=== PATIENT | female | born 1970 | race Caucasian/White ===

== ENCOUNTER → 2018-09-07 14:09 | Outpatient (CLI) | payer BC, SELFPAY ==
[2018-09-07 18:12] LABS: Chlamydia Trachomatis by PCR Negative (Negative); Neisserai gonorrhoeae by PCR Negative (Negative); Probe Check PASS; Sample Adequacy Control PASS; Specimen Processing Control PASS
[2018-09-14 16:08] LABS: HPV HC, High Risk Positive (Negative)
== END ==
PROVIDERS: Family Provider Family Medicine; PCP Family Medicine; Referring Provider Family Medicine; Visit Provider Family Medicine
DX: Z12.4 Encounter for screening for malignant neoplasm of cervix (principal)
CPT/HCPCS: 87491; 87591; 87624; 88175; G0145

== ENCOUNTER → 2018-09-11 08:04 | Outpatient (CLI) | payer MEDICAID, SELFPAY ==
[2018-09-11 12:03] LABS: Absolute Lymphocyte Count 2.07 X10^3/ul (0.83-4.51); Basophil# 0.02 X10^3/uL; Basophil% 0.3 % (0-1); Eosinophil# 0.16 X10^3/uL; Eosinophils% 2.3 % (0-5); Hematocrit 40.8 % (37-47); Hemoglobin 13.2 g/dl (12.0-15.0); Lymphocyte # 2.07 X10^3/ul (4.0); Lymphocyte % 29.7 % (19-41); Mean Corp Hgb Conc 32.4 g/gl (32-36); Mean Corpuscular Hgb 30.5 pg (27.0-32.0); Mean Corpuscular Volume 94.2 fL (81-99); Mean Platelet Vol. 9.8 fl (6.2-12.0); Neutrophil # 4.02 X10^3/uL (2.7-7.7); Neutrophil % 57.6 % (47-70); Platelet Count 208 K/mm3 (150-450); RBC Distribution Width CV 13.4 % (11.6-14.6); RBC Distribution Width SD 46.5 fl (35.1-43.9); Red Blood Count 4.33 M/mm3 (4.2-5.4)
[2018-09-11 12:04] LABS: POSITIVE COUNT NO; POSITIVE DIFFERENTIAL NO; POSITIVE MORPHOLOGY NO
[2018-09-11 12:47] LABS: ALB/GLOB Ratio 1.2 RATIO (0.9-2.4); AST(SGOT) 11 U/L (15-37); Alanine Aminotransfer ALT/SGPT 28 U/L (13-56); Albumin, Serum 3.8 g/dL (3.2-5.0); Alkaline Phosphatase 75 U/L (45-117); Anion Gap 9 (5-15); BUN 10 mg/dL (7-18); Calcium,Total 8.4 mg/dL (8.5-10.1); Chloride 104 mmol/L (98-107); Cholesterol 232 mg/dL (200); Creatinine, Serum 0.83 mg/dL (0.55-1.02); EST Glomerular Filtration Rate 77 mL/min (>60); Est Glom Filt Rate - Afr Amer 94 mL/min (>60); Globulin 3.1 g/dL (2.2-4.2); Glucose 92 mg/dL (74-106); High Density Lipoprotein 38 mg/dL; Potassium 4.1 mmol/L (3.5-5.1); Protein, Total 6.9 g/dL (6.4-8.2); Sodium Level 137 mmol/L (136-145); Thyroid Stim Hormone (TSH) 3.18 uIU/mL (0.358-3.74); Triglycerides 127 mg/dL; Very Low Density Lipoprotein 25 mg/dL (5-40)
[2018-09-11 13:16] LABS: HIV - WCH Non-Reactive (Nonreactive)
== END ==
PROVIDERS: Family Provider Family Medicine; PCP Family Medicine; Visit Provider Family Medicine
DX: Z01.419 Encounter for gynecological examination (general) (routine) without abnormal findings (principal)
CPT/HCPCS: 36415; 80053; 80061; 84443; 85025; 86703

== ENCOUNTER → 2018-10-12 12:43 | Outpatient (CLI) | payer MEDICAID, SELFPAY ==
[2016-03-08 21:08] VITALS: BMI 22.4
--- NOTE | 2018-10-12 12:47 | BI_ITS ---
MAMMOGRAPHY - BILATERAL SCREENING REASON FOR EXAM: Female, 48 years old. Routine annual screening examination. PERTINENT HISTORY: Grandmother with breast cancer. TECHNIQUE: Digital bilateral breast pauline (3D mammographic acquisition) in the CC and MLO projections. 2-D mediolateral oblique (MLO) and craniocaudad (CC) views of both breasts were obtained. CAD: Full Field Digital Mammography with Computer Added Detection was performed. COMPARISON: Comparison is made with prior study of October 08, 2014 and January 07, 2011. FINDINGS: Breast Composition: There are scattered areas of fibroglandular density. There are no dominant masses or suspicious calcifications. No other significant abnormalities are identified. There has been no significant change since the prior study. BI/SCREENING MAMM (CAD), BILAT IMPRESSION: Stable bilateral screening mammogram. Yearly follow-up mammogram recommended. (A) ASSESSMENT CATEGORY: BIRADS Category 2: Benign. A letter regarding these results will be sent to the patient by the facility within 30 days. Approximately 10% of breast cancers are not detected by mammography. A normal mammogram should not delay biopsy of a clinically suspicious abnormality. [id number] Electronically Signed: James Keller, at 15:52 EST , Service support ,
[2018-10-15 09:06] LABS: HEPATITIS B SURFACE AG Negative (Negative)
== END ==
LOC: OPBI 12:45 → PAVLAB 14:37
PROVIDERS: Obstetrics & Gynecology; Family Provider Family Medicine; PCP Family Medicine; Referring Provider Family Medicine; Visit Provider Family Medicine
DX: Z12.31 Encounter for screening mammogram for malignant neoplasm of breast (principal); Z78.9 Other specified health status
CPT/HCPCS: 36415; 77063; 77067; 87340

== ENCOUNTER 2021-03-28 15:37 | Emergency (ER) | payer OTHER, SELFPAY ==
[2021-03-28 15:40] VITALS: BP 133/89; PULSE 80; RESP 16; TEMP 36.2; O2SAT 100; BMI 54.5
--- NOTE | 2021-03-28 16:05 | EDS_ITS ---
HPI History of Present Illness Chief Complaint: Back Narrative Narrative: Patient presenting for evaluation secondary to back pain. Patient has a prior history of back pain, states that she actually had been doing quite well recently because she lost weight I did strengthen her core. Patient reports that this week she had a long car trip to the beach, moved her daughter in college, and started to develop some low back spasms with radiation of pain down her right leg. Pain is worse with movement. She denies any numbness or weakness or bowel or bladder incontinence. She denies any fevers. Patient denies any recent surgeries or injections. Patient states that she has been taking ibuprofen basically [id number], and today she took a bunch of clients down to [facility] and fell out of the canoe a couple times and feels like that may have made her back pain a little bit worse. Review of systems otherwise negative. [facility] Medical History Alcohol abuse Asthma Back spasm Chronic back pain GERD (gastroesophageal reflux disease) Seasonal allergies Home Medications diphenhydramine HCl 25 mg tablet 25 mg PO QHS PRN 10/12/18 [History Last Taken Unknown] fexofenadine 180 mg tablet 180 mg PO DAILY 10/12/18 [History Last Taken Unknown] ibuprofen 800 mg tablet 800 mg PO BID 10/12/18 [History Last Taken Unknown] mometasone 50 mcg/actuation nasal spray 2 spray INTRANASAL DAILY 10/12/18 [History Last Taken Unknown] ranitidine HCl 150 mg tablet 150 mg PO BID tab 10/12/18 [History Last Taken Unknown] spironolactone 50 mg tablet 50 mg PO BID 10/12/18 [History Last Taken Unknown] cyclobenzaprine 10 mg PO TID PRN #20 tablet 03/28/21 [Rx Last Taken Unknown] Allergy/AdvReac Type Severity Reaction Status Date / Time niacin Allergy Nausea Verified 03/28/21 15:40 prednisone AdvReac Severe mood swings Verified 03/28/21 15:40 varenicline [From Chantix] AdvReac Severe mood swings Verified 03/28/21 15:40 Family History Father Diabetes Heart disease Myocardial infarction Mother Cancer Heart disease Brother Kidney disease Heart disease Surgical History Previous back surgery Social History adopted: No household members: children housing: house number of children: 2 current occupational status: employed current occupation: works at [employer] current occupational exposures/hazards: No pets and animals: Yes Smoking Status: Current every day smoker alcohol intake: former substance use type: does not use seatbelt use: always do you feel safe at home: Yes ROS ROS ED Constitutional Constitutional ED: Reports other Details: Denies recent surgeries, or injections ; Denies chills, fever(s), sweats or weight loss Cardiovascular Cardiovascular: Denies chest pain Respiratory/Chest Respiratory/Chest: Denies dyspnea Gastrointestinal Gastrointestinal: Reports other Details: Denies Bowel Incontinence ; Denies abdominal pain Genitourinary Genitourinary ED: Reports other Details: Denies Bladder Incontinence Musculoskeletal Musculoskeletal: Reports back pain Integumentary Reports other Details: No Petechiae ; Denies rash Neurologic Neurologic: Reports other Details: Denies Numbness, or Weakness Psychiatric Psychiatric: Reports other Details: Denies history of IV Drug abuse Hematologic/Lymphatic Hematologic/Lymphatic: Denies lymphadenopathy EXAM Physical Exam Const Vital Signs: 03/28/21 15:40 Temperature 97.2 F L Temperature Source Temporal Pulse Rate 80 Respiratory Rate 16 Blood Pressure 133/89 H Blood Pressure Mean 103 Pulse Ox 100 Oxygen Delivery Method Room Air Positive well nourished and well developed General Appearance ED: well developed and NAD HEENT Reports normocephalic and head/scalp atraumatic Eyes EOMs intact bilaterally Neck supple Resp normal respiratory effort and clear to auscultation bilaterally Cardio regular rate, regular rhythm and no murmurs Bruits: other Other Details: 2+ Radial Pulses 2+ DP Pulses 2+ PT Pulses Peripheral Pulses: radial pulses present, posterior tibial pulses present and dorsalis pedis pulses present GI normal to inspection, nondistended, normoactive bowel sounds, soft to palpation and non-tender Palpation: Negative for pulsatile mass Back/Spine normal to inspection Back/Spine Narrative: Lumbar TTP Thoracic Spine / Upper Back: Negative for thoracic spinal tenderness Lumbar Spine / Lower Back: straight leg raise positive right; Negative for lumbar spinal tenderness Extremity normal to inspection Neuro oriented x3 and no sensory deficits noted Neuro Narrative: Motor: Hip flexion Knee flexion Knee extension Dorsiflexion Plantar Flexion Extensor Hallicus longus Sensorium / Orientation: alert Sensory Exam: other Motor Exam: strength 5/5 throughout Deep Tendon Reflexes: Rt Patellar (L4): 2+, Lt Patellar (L4): 2+, Rt Ankle (S1): 2+ and Lt Ankle (S1): 2+ Deep Tendon Reflexes Back: Rt Patellar (L4): 2+, Lt Patellar (L4): 2+, Rt Ankle (S1): 2+ and Lt Ankle (S1): 2+ Plantar Reflex: Other: bilateral (No pathologic clonus) Psych mental status grossly normal Skin no rashes or lesions noted Trauma: other No petechiae MDM MDM MDM Narrative Medical decision making narrative: Patient presenting secondary to back pain. This does seem to be radicular radiating down her right leg with reproduction on straight leg raise with no red flag signs or symptoms. There is no indication for imaging or neuroimaging. Patient is already on ibuprofen, she did consent to treatment with Flexeril. She states that she does not do well with steroids, and does not want to take any sort of narcotics. Patient will be sent home with a course of Flexeril and recommendation on range of motion exercises. She will be given a referral to spine and pain management. Patient was discharged in stable condition. Discharge Plan Triage Chief Complaint: Back ED Provider: Garth Jerome Dx/Rx/DC Orders Clinical Impression: Lumbar radiculopathy, acute Instructions: ED Sciatica Prescriptions: New cyclobenzaprine 10 mg tablet 10 mg PO TID PRN (Reason: Muscle Spasm) Qty: 20 RF: 0 No Action spironolactone 50 mg tablet 50 mg PO BID RF: 0 ibuprofen 800 mg tablet 800 mg PO BID RF: 0 fexofenadine [Leilani Allergy] 180 mg tablet 180 mg PO DAILY RF: 0 diphenhydramine HCl [Benadryl Allergy] 25 mg tablet 25 mg PO QHS PRNRF: 0 mometasone [Nasonex] 50 mcg/actuation spray,non-aerosol 2 spray INTRANASAL DAILY RF: 0 ranitidine HCl [Zantac] 150 mg tablet 150 mg PO BID RF: 0 Primary Care Provider: Care Physician,No Primary Referrals: Claire Ibrahim MD [STAFF PHYSICIAN] - As Needed Tucker,Brennon, DO [STAFF PHYSICIAN] - As Needed NOT,DEFINED [NON-STAFF] - Disposition Disposition: Home, Self Care
[2021-03-28 16:30] VITALS: PULSE 88; RESP 17; O2SAT 100
== END 2021-03-28 16:33 | disposition home or self-care (01) ==
PROVIDERS: Emergency Provider Emergency Medicine
DX: M54.16 Radiculopathy, lumbar region (principal); M62.830 Muscle spasm of back; G89.29 Other chronic pain; J45.909 Unspecified asthma, uncomplicated; K21.9 Gastro-esophageal reflux disease without esophagitis; F17.200 Nicotine dependence, unspecified, uncomplicated; Z79.51 Long term (current) use of inhaled steroids; Z79.1 Long term (current) use of non-steroidal anti-inflammatories (NSAID); Z79.899 Other long term (current) drug therapy
CPT/HCPCS: 99282

== ENCOUNTER → 2021-03-31 12:01 | Outpatient (CLI) | payer OTHER, SELFPAY ==
--- NOTE | 2021-03-31 12:04 | RAD_ITS ---
STUDY: X-RAY - LUMBAR SPINE REASON FOR EXAM: Female, 50 years old. One-week history of low back pain. TECHNIQUE: 3 view(s) of the lumbar spine were obtained. COMPARISON: None FINDINGS: Normal lumbar lordosis. There is a mild levoscoliosis of the lumbar spine. There is a normal alignment of the vertebrae. Normal vertebral bodies and endplates. Disc space narrowing at the L4-L5 and L5-S1 levels. Grade 1 anterolisthesis of L4 on L5 without spondylolysis. Facet joint osteoarthritis. The soft tissue structures are unremarkable. RAD/Lumbar Spine 2 or 3 Views IMPRESSION: Degenerative changes of the spine, as detailed above. Grade 1 anterior listhesis of L4 on L5. Facet joint osteoarthritis. Electronically Signed: James Keller MD at 13:39 EDT , Service support ,
== END ==
LOC: RAD 12:02
PROVIDERS: Referring Provider Anesthesiology Pain Medicine; Visit Provider Anesthesiology Pain Medicine
DX: M54.9 Dorsalgia, unspecified (principal)
CPT/HCPCS: 72100

== ENCOUNTER 2023-01-23 09:00 | Outpatient (RCR) | payer MEDICAID, OTHER, SELFPAY ==
--- NOTE | 2022-07-21 08:38 | HP.PTEVAL_ITS ---
Patient's Visit Information ISAI DINERO is a 52 year old F referred to Physical Therapy by MARIVEL BIRCH with a diagnosis of Spinal Stenosis of Lumbar Region with Neurogenic Claudication. Date of Evaluation: 07/21/22 Physical Therapist: Nancy Alarcon DPT - Visit Plan Frequency: 2-3x /Week Duration: 4 Weeks Plan: Aquatic PT- focus on LE and core strength/stabilization- GENTLE! - Subjective Patient reports that she has had 3 back surgeries since January. 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 Baeza at [facility]- January 07 they were suppose to do it all at once- she had an iliac thrombosis and then became a vascular surgery- he was able to put on one- but was unstable for 6 weeks- 4 days in ICU and 6 days in hospital- she went home in serious- bed bound for 6 weeks then- February 23 she had L2-S1 Fusion and realigned pelvis with 6 screws on both sides- lost feeling in right leg for 2 days- hospital for 8 da ys then short term care at [facility]- One of the pelvic screws popped up and she ended up with drop foot on the right- May 16 and they removed the pelvic screws and sawed off the bottom of the rods- and she has been in a hospital bed since then with PT at home and a nurse- that stopped last week. Saw MD on Monday and he wants her to come to aquatic/land outpatient. She reports gaining a lot of weight during the process- Aug [address] and then follow up with surgeon on Sep 12. She lives alone in a two story home- bedroom upstairs with hand rails- she can ambulate throughout the house with a walker or furniture walking- She has a walker upstairs and downstairs. Limitations from surgeon: listen to your body and monitor pain. She can drive around town- and is back to full ADL's but she has all of the aides she needs. She does her own grocery shopping and cooking. Pain is located in the lumbar spine and radiates up to the shoulder blades down to the hips both sides and then right leg is tingling, hypersensitive and drop foot all the way to the toes. Pain is the back is described as someone hit her with a baseball bat- soreness and hurts a lot. Worst: 04/16 Agg: sitting for extended periods of time, standing for any length of time. Best: 03/16 Eases: medications, laying down. She only has N/T in the right LE. No loss or change in bowel or bladder. She is not taking any narcotics- Roboxin, Gabapentin and Motrin and is working to get down on Gabapentin. 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 Sleep: disturbed- whatever way she can get comfortable-PMHx:none Meds: Roboxin, Gabapentin, Spirolactone and Motrin - Objective Posture: guarded throughout- pt moved from sitting, standing and supine during evaluation to find a comfortable position- performed subjective with pt supine with legs elevated. Gait: Rollator- she has decreased stance on the right LE with increased pelvic translation- increased hip flexion on right to clear toes (no AFO). Stairs: non recip with 2 HR. HR/TR: able to HR- TR left: 100% Right: 50%. SLS: Right: 2 sec with increased muscle activation and sway Left: 15 sec. Observation: well healed incision. Palpation: tender throughout lumbar spine and gluts Right>Left. Sensation: hyper sensitive to touch on the right LE grossly. ROM: Lumbar: Flexion: hands to knees, SB: dec by 25% Rot: dec by 25% Extn: neutral- Hip/Knee/Ankle: WFL. Flex: Gastroc: severe, Quad: Right: severe Left: moderate Hamstring 90/90 testing: Left: 40 Right: 35 both severely limited. Strength: Core: poor, Performed with hand held dynomometer (lbs) Left: Hip Flexion: 36 Extn: 43, Abd: 21, Knee: Flexion: 41 Extn: 55, Ankle DF:40Right: Hip Flexion: 10, Extn: 26, Abd: 6.1,Knee: Flexion:9 Extn: 26 Ankle DF: 6. *Did not perform a significant number of special tests due to pain- will perform as necessary- working through functional mobility - Balance/Special Test Scores Oswestry Low Back Score: 32 - Goals Goal 1:: Patient will be I with HEP and progression Goal Time Frame: 4-6 Weeks Goal 2:: Patient will ambulate >300 feet with LRD and normalized gait pattern Goal Time Frame: 4-6 Weeks Goal 3:: Patient will SLS for 10 sec on the right LE Goal Time Frame: 4-6 Weeks Goal 4:: Patient will asc/desc 8'' recip with 2 HR and recip pattern Goal Time Frame: 4-6 Weeks Goal 5:: Patient will report 80% improvement Goal Time Frame: 4-6 Weeks - Rehabilitation Potential Physical Therapy Diagnosis: Patient presents s/p extensive back surgery history- she has decreased LE and core strength/stabilization, flex, proprioception and muscular endurance leading to difficulty performing ADL's. Rehabilitation Potential: Fair - Anticipated Interventions Patient/Client Instruction: Educate patient on: Benefits of Fitness Program Therapeutic Exercise to Include: Strength training, Power training, Endurance training, Balance training, Coordination, Agility training, Body mechanics, Postural training, Flexibilty training, Gait and locomotor training, Neuromotor development, In an aquatic setting, Dynamic Lumbar Stabilization, Scapular Strength/Stabilization For the Purpose of:: To improve muscle performance and motor function Thank you for the opportunity to evaluate your patient. For Medicare and Medicare HMO plans, please review the plan of care and approve it. It will need to be FAXED BACK to us at [phone] for Medicare purposes. For Medicare only, by signing this I certify the plan of care. Please let me know if there are questions or concerns regarding this plan of care. Physician Signature: Date:
--- NOTE | 2022-08-12 14:34 | HP.PTREVAL_ITS ---
MARIVEL BIRCH, It has been my pleasure to treat ISAI DINERO over the last 9 visits for Spinal Stenosis of Lumbar Region with Neurogenic Claudication. Please see the progress note below for an update on the physical therapy plan of care! Subjective: The pool has helped a lot. Others has noticed that she is walking better with her walker and she is better stability galeas. She feels more flexible. She still has a hospital bed at home. She can now do light chores at home but she takes a lot of breaks. She can sit for about an hour or so. She still has a tingling in her calf on the R. Pain galeas the water has not changed her pain and has also gone down on the Gabapentin. Pt goes back to her Dr on 09-12-21. They will discuss an AFO next visit. Objective/Function: SLB on the R without UE support she is not able to balance... she needs UE support. Gait: she is able to walk with smooth gait pattern with her rollator. She walked approx 150 feet without catching her R foot on the ground Plan Plan: 1X/ week in Aquatic PT and 2X/ week on land - focus on LE and core stre ngth/stabilization, increase R LE weightbearing, gait, GENTLE and progress as able. Balance/Gait/Functional tests - Balance/Special Test Scores Oswestry Low Back Score: 27 Goals Goal 1:: Patient will be I with HEP and progression Goal Time Frame: 4-6 Weeks Goal Progress: Goal Met Goal 2:: Patient will ambulate >300 feet with LRD and normalized gait pattern Goal Time Frame: 4-6 Weeks Goal Progress: Progressing Goal 3:: Patient will SLS for 10 sec on the right LE Goal Time Frame: 4-6 Weeks Goal 4:: Patient will asc/desc 8'' recip with 2 HR and recip pattern Goal Time Frame: 4-6 Weeks Goal Progress: Goal Met Goal 5:: Patient will report 80% improvement Goal Time Frame: 4-6 Weeks Anticipated Interventions Patient/Client Instruction: Educate patient on: Benefits of Fitness Program Therapeutic Exercise to Include: Strength training, Power training, Endurance training, Balance training, Coordination, Agility training, Body mechanics, Postural training, Flexibilty training, Gait and locomotor training, Neuromotor development, In an aquatic setting, Dynamic Lumbar Stabilization, Scapular Strength/Stabilization For the Purpose of:: To improve muscle performance and motor function Please do not hesitate to contact me at [phone] by phone or if you have questions or concerns regarding this new plan of care! Sincerely, Cassidy Hernandez, MPT
--- NOTE | 2022-09-13 11:34 | HP.PTREVAL ---
MARIVEL BIRCH, It has been my pleasure to treat ISAI DINERO over the last 16 visits for Spinal Stenosis of Lumbar Region with Neurogenic Claudication. Please see the progress note below for an update on the physical therapy plan of care! Subjective: She saw the neurosurgeon yesterday and she had to drive- he wants her back in the pool. He wants her to get off some of her medication. She wants to be able to ambulate without a walker, have decreased foot drop. Objective/Function: Posture: guarded throughout- pt moved from sitting, standing. Gait: Rollator smooth gait pattern Stairs: recip with 2 HR. HR/TR: able to HR- TR left: 100% Right: 50%. SLS: Right: 4 sec with increased muscle activation and sway Left: 15 sec. Observation: well healed incision. Palpation: tender throughout lumbar spine and gluts Right>Left. Sensation: hyper sensitive to touch on the right LE grossly. ROM: Lumbar: Flexion: hands to knees, SB: dec by 25% Rot: dec by 25% Extn: neutral- Hip/Knee/Ankle: WFL. Flex: Gastroc: severe, Quad: Right: severe Left: moderate Hamstring 90/90 testing: Left: 40 Right: 35 both severely limited. Strength: Core: poor, Performed with hand held dynomometer (lbs) Hip: 4/5, Knee: 4+/5, Ankle: 4/5 Plan Plan: 09/13/22: 2x a week aquatic and 1x land - focus on LE and core strength/stabilization, increase R LE weightbearing, gait, GENTLE and progress as able. Balance/Gait/Functional tests - Balance/Special Test Scores Oswestry Low Back Score: 35 Goals Goal 1:: Patient will be I with HEP and progression Goal Time Frame: 4-6 Weeks Goal Progress: Goal Met Goal 2:: Patient will ambulate >300 feet with LRD and normalized gait pattern Goal Time Frame: 4-6 Weeks Goal Progress: Progressing Goal 3:: Patient will SLS for 10 sec on the right LE Goal Time Frame: 4-6 Weeks Goal 4:: Patient will asc/desc 8'' recip with 2 HR and recip pattern Goal Time Frame: 4-6 Weeks Goal Progress: Goal Met Goal 5:: Patient will report 80% improvement Goal Time Frame: 4-6 Weeks Anticipated Interventions Patient/Client Instruction: Educate patient on: Benefits of Fitness Program Therapeutic Exercise to Include: Strength training, Power training, Endurance training, Balance training, Coordination, Agility training, Body mechanics, Postural training, Flexibilty training, Gait and locomotor training, Neuromotor development, In an aquatic setting, Dynamic Lumbar Stabilization, Scapular Strength/Stabilization For the Purpose of:: To improve muscle performance and motor function Please do not hesitate to contact me at [phone] by phone or if you have questions or concerns regarding this new plan of care! Sincerely, EARLE RodriguezT
--- NOTE | 2022-10-18 11:27 | HP.PTREVAL ---
MARIVEL BIRCH, It has been my pleasure to treat ISAI DINERO over the last 29 visits for Spinal Stenosis of Lumbar Region with Neurogenic Claudication. Please see the progress note below for an update on the physical therapy plan of care! Subjective: Patient reports that she is frustrated that her right leg is not doing what she wants it to do- she is still using the rollator due to the leg buckling. She went and saw her first back MD who reports that she has soft bones and will need to follow up with him yearly. She feels that the water is really helping and is coming in on off days to do the pool independently. She really feels that the pool is the place she makes the most gains. Objective/Function: Posture: guarded throughout- pt moved from sitting, standing. Gait: Rollator smooth gait pattern Stairs: recip with 2 HR. HR/TR: able to HR- TR left: 100% Right: 50%. SLS: Right: 4 sec with increased muscle activation and sway Left: 15 sec. Observation: well healed incision. Palpation: tender throughout lumbar spine and gluts Right>Left. Sensation: hyper sensitive to touch on the right LE grossly. ROM: Lumbar: Flexion: hands to knees, SB: dec by 25% Rot: dec by 25% Extn: neutral- Hip/Knee/Ankle: WFL. Flex: Gastroc: severe, Quad: Right: severe Left: moderate Hamstring 90/90 testing: Left: 40 Right: 35 both severely limited. Strength: Core: poor, Performed with hand held dynomometer (lbs) Hip: 4/5, Knee: 4+/5, Ankle: 4/5. No significant changes since last visit. Will continue 2x a week- 1x in the pool for maintenance and 1x a week on land for progression Plan Plan: 10/18/22: Will continue 2x a week- 1x in the pool for maintenance and 1x a week on land for progression for 4 weeks. 09/13/22: 2x a week aquatic and 1x land - focus on LE and core strength/stabilization, increase R LE weightbearing, gait, GENTLE and progress as able. Balance/Gait/Functional tests - Balance/Special Test Scores Oswestry Low Back Score: 34 Goals Goal 1:: Patient will be I with HEP and progression Goal Time Frame: 4-6 Weeks Goal Progress: Goal Met Goal 2:: Patient will ambulate >300 feet with LRD and normalized gait pattern Goal Time Frame: 4-6 Weeks Goal Progress: Progressing Goal 3:: Patient will SLS for 10 sec on the right LE Goal Time Frame: 4-6 Weeks Goal 4:: Patient will asc/desc 8'' recip with 2 HR and recip pattern Goal Time Frame: 4-6 Weeks Goal Progress: Goal Met Goal 5:: Patient will report 80% improvement Goal Time Frame: 4-6 Weeks Anticipated Interventions Patient/Client Instruction: Educate patient on: Benefits of Fitness Program Therapeutic Exercise to Include: Strength training, Power training, Endurance training, Balance training, Coordination, Agility training, Body mechanics, Postural training, Flexibilty training, Gait and locomotor training, Neuromotor development, In an aquatic setting, Dynamic Lumbar Stabilization, Scapular Strength/Stabilization For the Purpose of:: To improve muscle performance and motor function Please do not hesitate to contact me at [phone] by phone or if you have questions or concerns regarding this new plan of care! Sincerely, Nancy Alarcon DPT
--- NOTE | 2022-11-16 10:55 | HP.PTREVAL ---
MARIVEL BIRCH, It has been my pleasure to treat ISAI DINERO over the last 38 visits for Spinal Stenosis of Lumbar Region with Neurogenic Claudication. Please see the progress note below for an update on the physical therapy plan of care! Subjective: Patient report that she has been doing the pool (3-4x a week) and it helps to loosen up everything. She has been trying to walk a little more- she can go to the mailbox without using her walker- but going longer distances she is using her walker due to pain in the right hip- she is still having spasms. She reports that its slowly getting better. Her right leg is still hyper sensitive but its getting better. She is off the Gabapentin. She can now sit for 30-45 min- if she comes to the pool she can sit longer- she is getting 6-7 hours of sleep. Objective/Function: Posture: FH, RS- can correct with verbal cues but does not maintain Gait: Rollator smooth gait pattern- able to walk 50 feet with a walker with supervision. Stairs: recip with 2 HR. HR/TR: able to HR- TR left: 100% Right: 50%. SLS: Right: 11 sec with increased muscle activation and sway Left: 25 sec. Observation: well healed incision. Palpation: tender throughout lumbar spine and gluts Right>Left. ROM: Lumbar: Flexion: hands to knees, SB: dec by 25% Rot: dec by 25% Extn: neutral- Hip/Knee/Ankle: WFL. Flex: Gastroc: severe, Quad: Right: severe Left: moderate Strength: Core: poor, Hip: 4/5, Knee: 4+/5, Ankle: 4+/5. Plan Plan: 11/16/22: Progression to land PT 2x a week for 4 weeks- focus on LE and core strength/stabilization and ambulation. *Demo seated Piri stretch next session on land (pull across body to opp shoulder, push belly fwd).*. 10/18/22: Will continue 2x a week- 1x in the pool for maintenance and 1x a week on land for progression for 4 weeks. 09/13/22: 2x a week aquatic and 1x land - focus on LE and core strength/stabilization, increase R LE weightbearing, gait, GENTLE and progress as able. Balance/Gait/Functional tests - Balance/Special Test Scores Oswestry Low Back Score: 34 Lower Extremity Functional Score: 22 Goals Goal 1:: Patient will be I with HEP and progression Goal Time Frame: 4-6 Weeks Goal Progress: Goal Met Goal 2:: Patient will ambulate >300 feet without AD and normalized gait pattern Goal Time Frame: 4-6 Weeks Goal Progress: Progressing Goal 3:: Patient will SLS for 10 sec on the right LE Goal Time Frame: 4-6 Weeks Goal Progress: Goal Met Goal 4:: Patient will asc/desc 8'' recip with 2 HR and recip pattern Goal Time Frame: 4-6 Weeks Goal Progress: Goal Met Goal 5:: Patient will report 80% improvement Goal Time Frame: 4-6 Weeks Anticipated Interventions Patient/Client Instruction: Educate patient on: Benefits of Fitness Program Therapeutic Exercise to Include: Strength training, Power training, Endurance training, Balance training, Coordination, Agility training, Body mechanics, Postural training, Flexibilty training, Gait and locomotor training, Neuromotor development, In an aquatic setting, Dynamic Lumbar Stabilization, Scapular Strength/Stabilization For the Purpose of:: To improve muscle performance and motor function Please do not hesitate to contact me at [phone] by phone or if you have questions or concerns regarding this new plan of care! Sincerely, Nancy Alarcon DPT
--- NOTE | 2022-12-14 13:40 | HP.PTREVAL_ITS ---
MARIVEL BIRCH, It has been my pleasure to treat ISAI DINERO over the last 45 visits for Spinal Stenosis of Lumbar Region with Neurogenic Claudication. Please see the progress note below for an update on the physical therapy plan of care! Subjective: Pt reports that she could barely walk when she first started. She reports that she still has leg issues but she in not crawling. She still gets the leg buckle, spasms and still can not walk longer than a mile. If she were to walk 50 feet without the walker and if she walks too long it will buckle and she will get weak and then she can take a rest and get back up and then she can walk again but it is shorter spurts because it gets worse. She gets stabbing pain in the R buttock area. She goes back to her surgeon January 24... She is still in her hospital bed at home. She has to lay flat at home and can get up and get up and do something and then has to lay flat again. Objective/Function: Gait: Able to walk with rollator 332 feet but starts to have a limp on the R side at approx 300 feet and has to hurry back to sitting. LE MMT: R hip flex 10.9 and L hip flex 16.2. R knee ext 13.1 and L 23.1. R knee flex 7.7 and L knee flex 19 Plan Plan: 11/16/22: Progression to land PT 2x a week for 4 weeks- focus on LE and c ore strength/stabilization and ambulation. *Demo seated Piri stretch next session on land (pull across body to opp shoulder, push belly fwd).*. 10/18/22: Will continue 2x a week- 1x in the pool for maintenance and 1x a week on land for progression for 4 weeks. 09/13/22: 2x a week aquatic and 1x land - focus on LE and core strength/stabilization, increase R LE weightbearing, gait, GENTLE and progress as able. Balance/Gait/Functional tests - Balance/Special Test Scores Oswestry Low Back Score: 28 Lower Extremity Functional Score: 28 Goals Goal 1:: Patient will be I with HEP and progression Goal Time Frame: 4-6 Weeks Goal Progress: Goal Met Goal 2:: Patient will ambulate >300 feet without AD and normalized gait pattern Goal Time Frame: 4-6 Weeks Goal Progress: Progressing Goal 3:: Patient will SLS for 10 sec on the right LE Goal Time Frame: 4-6 Weeks Goal Progress: Goal Met Goal 4:: Patient will asc/desc 8'' recip with 2 HR and recip pattern Goal Time Frame: 4-6 Weeks Goal Progress: Goal Met Goal 5:: Patient will report 80% improvement Goal Time Frame: 4-6 Weeks Goal Progress: Progressing Goal 6:: Increase R LE strengthening. R hip flex 10.9 and L hip flex 16.2. R knee ext 13.1 and L 23.1. R knee flex 7.7 and L knee flex 19. R DF 10.1 and L DF 17.9 Goal Time Frame: 6-8 Weeks Anticipated Interventions Patient/Client Instruction: Educate patient on: Benefits of Fitness Program Therapeutic Exercise to Include: Strength training, Power training, Endurance training, Balance training, Coordination, Agility training, Body mechanics, Postural training, Flexibilty training, Gait and locomotor training, Neuromotor development, In an aquatic setting, Dynamic Lumbar Stabilization, Scapular Strength/Stabilization For the Purpose of:: To improve muscle performance and motor function Please do not hesitate to contact me at [phone] by phone or if you have questions or concerns regarding this new plan of care! Sincerely, Cassidy Hernandez, MPT
== END 2023-01-23 19:00 | disposition home or self-care (01) ==
LOC: PT 09:00
PROVIDERS: PCP Internal Medicine
DX: M48.062 Spinal stenosis, lumbar region with neurogenic claudication (principal)
CPT/HCPCS: 97110; 97113; 97163; 97164; 97530

== ENCOUNTER 2023-02-24 08:30 | Outpatient (RCR) | payer MEDICAID, SELFPAY ==
--- NOTE | 2023-02-08 15:50 | HP.PTDCSUM ---
Discharge Summary D/C summary: It has been my pleasure to treat ISAI DINERO referred by MARIVEL BIRCH, with the diagnosis of for a total of 36 visit(s). Discharge Date: Please see the following information for a summary of their discharge status. Subjective Subjective: Pt states she's hurting. States pain is a 7/10 today. Coming from the water. Objective Objective/Function: Pt did well with current exercise selection - working toward indep. Not sure how compliant pt will be on d/c - seems to purely rely on the pool; to make her feel better. Plan Plan: Cont to progress to indep gym program D/C Information d/c sentence: If there are questions or concerns regarding this patient's physical therapy, please feel free to call me at [phone]. Thank you for the referral of this patient. Sincerely, Rudi Madrigal, DPT, OCS, CSCS
--- NOTE | 2023-04-06 09:46 | HP.PTDCSUM_ITS ---
Discharge Summary D/C summary: It has been my pleasure to treat ISAI DINERO referred by MARIVEL BIRCH, with the diagnosis of for a total of 40 visit(s). Discharge Date: Please see the following information for a summary of their discharge status. Subjective Subjective: Nothing new. Pain back: Pain Intensity (Out of 10): 7 Down the R leg: Pain Intensity (Out of 10): 7 Overall Improvement % Improvement: 75 Objective Objective/Function: Cont transitioning pt to indep gym program. Allowed pt set- up machines with supervision and instruction. Plan Plan: D/c after this session. D/C Information d/c sentence: If there are questions or concerns regarding this patient's physical therapy, please feel free to call me at [phone]. Thank you for the referral of this patient. Sincerely, Nancy Alarcon, DPT Balance/Gait/Functional tests Balance/Special Test Scores Oswestry Low Back Score: 26 Lower Extremity Functional Score: 28 Improvement % Improvement: 75
== END 2023-02-24 19:00 | disposition home or self-care (01) ==
LOC: PT 08:30
PROVIDERS: PCP Internal Medicine
DX: M48.062 Spinal stenosis, lumbar region with neurogenic claudication (principal)
CPT/HCPCS: 97110; 97530

== ENCOUNTER 2024-03-04 10:00 | Outpatient (RCR) | payer MEDICAID, SELFPAY ==
--- NOTE | 2023-09-21 10:56 | HP.PTEVAL_ITS ---
Patient's Visit Information Visit Information Visit Information: ISAI DINERO is a 53 year old F referred to Physical Therapy by MARIVEL BIRCH with a diagnosis of redo LB fusion 08/23/23. Date of Evaluation: 09/21/23 Physical Therapist: Rudi Madrigal, DPT, OCS, CSCS Visit Plan Frequency: 3x /Week Duration: 4-6 Weeks Plan: 3x/week for 6 weeks (no bending lifting twisting precautions) start aquatic therapy for LB ROM , HS and quad stretching, LE and core strength, postural strength and work to I, once I will progress to land exercises for isometric strength core and health of UE/LE. Progress walking program. Subjective Subjective: 08/23/23 had surgery to redo L5s1 fusion and rods. This is 4th back surgery in two years. Was causing R leg to buckle and she was having dropfoot after 2nd surgery. 3rd surgery was pelvic screw removal. R leg was buckling and giving out often and that led to 4th surgery. Uses wh walker to get around. R leg especially gets weak. Sitting too long makes her painful. going to store is a chore and she needs to plan for easy escape. Then spends time in hospital. Lying flat is still the best. Since the surgery feels weak. Pain in last week is up and down. Past two nights has had spasms. Had been going to baby shower this weekend and that was alot. Precautions: No Bend lift or twist and 8# until 6 weeks out. Aloud to lift walker. Uses walker for two years. Can run into [place] quickly without it. Sleep is allright most nights, on reboxin. other meds include: tylenol 3x/day, Exercises: bands with arms, Not employed. lost job due to back stuff. hobbies : AA, Basic ADLs: getting done, slowly. Steps: no problem and has rail. Shower seat. Pain LBP: Pain Intensity (Out of 10): 7 Pain Intensity Range: 0 and 9 Objective Objective: Numby L toes since surgery. Walks in with wh walker mod I. Hesitant to walk without it but able for FGA today. Trasnfers w2ith back straight slow and hesitant but I bed and chair. Steps reciprocally with two rails today. Proprioception in L LE seems poor to reciprocal tapping, Diminished sensation R LE to light touch, feel weird. reflexes 2/3 patella and achilles B Strength in LE 4-/5 B without myotomal problems. + slump and SLR R HS and quad with mod tightness and cramping throughout session R side. LB AROM not tested flex./ext due to surgery. incsiion is healed and dry and no signs of redness heat or swelling but is moderatly tender to touch. Educated on desensitization massage. Balance/Special Test Scores Functional Gait Assessment Score: 23 % Disability: 23.3400 Oswestry Low Back Score: 36 Goals Goal 1:: pain 3/10 at worst and intermittent, 75% better Goal Time Frame: 4-6 Weeks Goal 2:: Patient ambulate community without AD without increased pain Goal Time Frame: 4-6 Weeks Goal 3:: steps reciprocal with one rail Goal Time Frame: 4-6 Weeks Goal 4:: FGA Goal Time Frame: 4-6 Weeks Goal 5:: I appropr pool and gym based ex for management Rehabilitation Potential Physical Therapy Diagnosis: weakness and propricoeptive/trust deficits with recent back surgery limiting funciton. Rehabilitation Potential: Fair Anticipated Interventions Patient/Client Instruction: Educate patient on: Condition and Plan of Care For the Purpose of:: To decrease pain, To increase ROM, To improve nutrient delivery to tissue, To improve muscle performance and motor function, To increase tolerance to activity/condition/position and To improve gait and locomotor functions Therapeutic Exercise to Include: Strength training, Balance training, Coordination, Flexibilty training, In an aquatic setting, Passive ROM, Active ROM and Dynamic Lumbar Stabilization For the Purpose of:: To decrease pain, To increase ROM, To improve nutrient delivery to tissue, To improve muscle performance and motor function, To increase tolerance to activity/condition/position and To decrease level of supervision to perform tasks Text: Thank you for the opportunity to evaluate your patient. For Medicare and Medicare HMO plans, please review the plan of care and approve it. It will need to be FAXED BACK to us at [phone] for Medicare purposes. For Medicare only, by signing this I certify the plan of care. Please let me know if there are questions or concerns regarding this plan of care. Physician Signature: Date:
--- NOTE | 2023-11-16 10:37 | HP.PTREVAL_ITS ---
Re-Evaluation Intro: MARIVEL BIRCH, It has been my pleasure to treat IASI DINERO over the last 19 visits for redo LB fusion 08/23/23. Please see the progress note below for an update on the physical therapy plan of care! Subjective Subjective: I can put my shoes on without much problem but still uses sockaide. Pain lately 01/14 R buttock and down lateral leg wrapping. Sharpness in buttock. Intermittinet. Better in pool 10/14, Does so 5x/week. Gym workout is fine but moving R hip especially ext and abduction can be painful. To doctor 12/03. R leg pain has been 1.5 yrs in the making. Overall with surgery is a bit better but still painful. Sleeping OK with meds. Activities: would like to be able to get throuigh day without lying down and resting. Is able to walk in house at home without AD, Uses wh walker if spasms.needs walker for 200 feet plus. Using wh walker longer distances and at roberto sometimes. Objective Objective/Function: Walks with poor confidence trying to touch wall but more b ecause it makes R hip feel better than balance. Steps reciprocal with one rail without a problem but she believes this is like climbing [place]. Tender over R buttock and gluts and into prirormis area and out to TFL. Some hip ROM deficits in flexion at 100 due to discomfort and ext rotation. Overall better with exercises but has some R hip soft tissue tenderness and concerns. same goals and new month POC. Plan Plan Plan: 2-3x/week x 4 for 2 visits to ensure I in gym and give list then (if we can get manual approved) 3 weeks of manual to R glut, TFL, piriformis DTR, STM and stretching to I home program. Balance/Gait/Functional tests Balance/Special Test Scores Functional Gait Assessment Score: 23 % Disability: 23.3400 Oswestry Low Back Score: 28 Goals Goals Goal 1:: pain 3/10 at worst and intermittent, 75% better Goal Time Frame: 4-6 Weeks Goal Progress: 45%, approp Goal 2:: Patient ambulate community without AD without increased pain Goal Time Frame: 4-6 Weeks Goal Progress: Progressing, approp Goal 3:: steps reciprocal with one rail Goal Time Frame: 4-6 Weeks Goal Progress: Goal Met Goal 4:: FGA Goal Time Frame: 4-6 Weeks Goal Progress: Progressing, approp Goal 5:: I appropr pool and gym based ex for management Goal Progress: 2 more vist gym Anticipated Interventions Anticipated Interventions Patient/Client Instruction: Educate patient on: Condition and Plan of Care For the Purpose of:: To decrease pain, To increase ROM, To improve nutrient delivery to tissue, To improve muscle performance and motor function, To increase tolerance to activity/condition/position and To improve gait and locomotor functions Therapeutic Exercise to Include: Strength training, Balance training, Coordination, Flexibilty training, In an aquatic setting, Passive ROM, Active ROM and Dynamic Lumbar Stabilization For the Purpose of:: To decrease pain, To increase ROM, To improve nutrient delivery to tissue, To improve muscle performance and motor function, To increase tolerance to activity/condition/position and To decrease level of supervision to perform tasks Re-Evaluation Ending Re-evaluation ending: Please do not hesitate to contact me at [phone] by phone or Fax: if you have questions or concerns regarding this new plan of care! Sincerely, Rudi Madrigal, DPT, OCS, CSCS
--- NOTE | 2023-12-13 12:48 | HP.PTREVAL ---
Re-Evaluation Intro: MARIVEL BIRCH, It has been my pleasure to treat ISAI DINERO over the last 26 visits for redo LB fusion 08/23/23. Please see the progress note below for an update on the physical therapy plan of care! Subjective Subjective: Saw neuro last Monday and was pretty good. Said f/u 6 months and to keep going. Had eergency trip to [place] for mom last week. back hurt after all that 04/16 and slept for two days. Did get back to the pool each day. Gym was going OK until last week mom trip. Was busier than typical with mom last week adn 2.5 hr drivve is not good for her. Was doing well before that trip with 5/10 at most and tolerable. Using walker for longer walks not inside house. Objective Objective/Function: L/S ext R marlon epainful and min limited, L SB slightly painful, flexion and R sB is good Walking without ad I. Good balance but R ankle weak and has been for years. Better balance overall and walking short distances very well. Hesitant to stop manual as it has been very helpful over the last month with movement of spine and comfort. Plan Plan Plan: 2x/week for 2 weeks then 1x/week for 2 weeks to wean manual and ensure getting back to gym exercises afte trip to take care of mom. educated patient on exit strategy and weaning of manual in favor of ex management. New goals , fair prognosis Balance/Gait/Functional tests Balance/Special Test Scores Functional Gait Assessment Score: 26 % Disability: 13.3400 Oswestry Low Back Score: 28 Goals Goals Goal 1:: pain 3/10 at worst and intermittent, 75% better Goal Time Frame: 4-6 Weeks Goal Progress: 75%, 9/10 if overdoes it. Goal 2:: Patient ambulate community without AD without increased pain Goal Time Frame: 4-6 Weeks Goal Progress: only short distances. Goal 3:: Back paion 2/10 at worst into hip and manageable with HEP with less manual Goal Time Frame: 4-6 Weeks Goal Progress: Progressing, appropriate Goal 4:: FGA Goal Time Frame: 4-6 Weeks Goal Progress: Goal Met Goal 5:: I appropr pool and gym based ex for management Goal Progress: Goal Met Goal 6:: Pt have pain 2/10 at worst and be 85% better with no LB ROM limitations except minor extension and wean down to 1x/weeek manual therapy with plan for exit strategy. Goal Time Frame: 4-6 Weeks Goal Progress: NEW GOAL Anticipated Interventions Anticipated Interventions Patient/Client Instruction: Educate patient on: Condition and Plan of Care For the Purpose of:: To decrease pain, To increase ROM, To improve nutrient delivery to tissue, To improve muscle performance and motor function, To increase tolerance to activity/condition/position and To improve gait and locomotor functions Therapeutic Exercise to Include: Strength training, Balance training, Coordination, Flexibilty training, In an aquatic setting, Passive ROM, Active ROM and Dynamic Lumbar Stabilization For the Purpose of:: To decrease pain, To increase ROM, To improve nutrient delivery to tissue, To improve muscle performance and motor function, To increase tolerance to activity/condition/position and To decrease level of supervision to perform tasks Re-Evaluation Ending Re-evaluation ending: Please do not hesitate to contact me at [phone] by phone or if you have questions or concerns regarding this new plan of care! Sincerely, Rudi Madrigal, DPT, OCS, CSCS
--- NOTE | 2024-02-16 09:52 | HP.PTREVAL ---
Re-Evaluation Intro: MARIVEL BIRCH, It has been my pleasure to treat ISAI DINERO over the last 34 visits for redo LB fusion 08/23/23. Please see the progress note below for an update on the physical therapy plan of care! Subjective Subjective: I am so bored of this(the years long rehab process). Does not need muscle relaxer much anymore until recently. Doing pool ex with 5# weights now and increasing floor strengthening on machines. See doctor in May. Spine stimulator has been suggested. I can vaccuum it just hurts. Have been wroking out daiy in pool and gym and has not had to go to [place] to take care of Mom. Trip is 2.5 hrs and will probably do it soon. Has helped being at home and consistent with workout. Cleaning kitchen and going well. Activities: cannot fly to see DTR in [place]. Would love to get back to work at [employer] if possible. Better than a month ago. Only using rollator for longer distance adn to hold he r bag. Much looser after getting in pool each day. Wants to do more exercises if possible. Objective Objective/Function: LB aROM min limitations in each direction and tightness in LB and posterior hips but no increased pain. walking well without rollator short distances today adn safe. Improving LEFS main new goal I with these new exercises for management. Fair prognosis. Plan Plan Plan: 2x/week for 5 visits to teach dumbbell based funcitonal and core ext and work to I to replace 1 or 2 days of her machine workout each week if tolerated. Give pics. Balance/Gait/Functional tests Balance/Special Test Scores Functional Gait Assessment Score: 26 % Disability: 13.3400 Oswestry Low Back Score: 23 Goals Goals Goal 1:: pain 3/10 at worst and intermittent, 75% better Goal Time Frame: 4-6 Weeks Goal Progress: Not Progressing Goal 2:: Patient ambulate community without AD without increased pain Goal Time Frame: 4-6 Weeks Goal Progress: Goal Met Goal 3:: Back paion 2/10 at worst into hip and manageable with HEP with less manual Goal Time Frame: 4-6 Weeks Goal Progress: Not Progressing Goal 4:: FGA Goal Time Frame: 4-6 Weeks Goal Progress: Goal Met Goal 5:: I appropr pool and gym based ex for management Goal Progress: Goal Met Goal 6:: Pt have pain 2/10 at worst and be 85% better with no LB ROM limitations except minor extension and wean down to 1x/weeek manual therapy with plan for exit strategy. Goal Time Frame: 4-6 Weeks Goal Progress: inconsistent Anticipated Interventions Anticipated Interventions Patient/Client Instruction: Educate patient on: Condition and Plan of Care For the Purpose of:: To decrease pain, To increase ROM, To improve nutrient delivery to tissue, To improve muscle performance and motor function, To increase tolerance to activity/condition/position and To improve gait and locomotor functions Therapeutic Exercise to Include: Strength training, Balance training, Coordination, Flexibilty training, In an aquatic setting, Passive ROM, Active ROM and Dynamic Lumbar Stabilization For the Purpose of:: To decrease pain, To increase ROM, To improve nutrient delivery to tissue, To improve muscle performance and motor function, To increase tolerance to activity/condition/position and To decrease level of supervision to perform tasks Re-Evaluation Ending Re-evaluation ending: Please do not hesitate to contact me at [phone] by phone or if you have questions or concerns regarding this new plan of care! Sincerely, Rudi Madrigal, DPT, OCS, CSCS
--- NOTE | 2024-03-04 10:47 | HP.PTDCSUM_ITS ---
Discharge Summary D/C summary: It has been my pleasure to treat ISAI DINERO referred by MARIVEL BIRCH, with the diagnosis of redo LB fusion 08/23/23 for a total of 39 visit(s). Discharge Date: 03/04/24 Please see the following information for a summary of their discharge status. Subjective Subjective: Doing the pool regularly. R hip still spasms sometimes with legs apart exercises. Enjoys the machine worlout as wella s the new free [employer] workout and will continue them. To doctor in may at neuro. Spasms with legs apart and one time in the last week02/13 and lasted a couple days. Home activities: pretty normal but avoids weeding, wants to get back to painting her rooms. Using wh walker for confidence away from home. Uses hospital bed at home. No AD needed around house. Pain LBP: Pain Intensity (Out of 10): 3 Overall Improvement % Improvement: 70 Objective Objective/Function: Good LB AROM without pain today, just stretching in LB especially with flexion, ext adn flexion min to mod limited. walking well without aD in PT today, using wh walker still in community. Goals Goal 1:: pain 3/10 at worst and intermittent, 75% better Goal Progress: Not Progressing Goal 2:: Patient ambulate community without AD without increased pain Goal Progress: Goal Met Goal 3:: Back paion 2/10 at worst into hip and manageable with HEP with less manual Goal Progress: Not Progressing Goal 4:: FGA Goal Progress: Goal Met Goal 5:: I appropr pool and gym based ex for management Goal Progress: Goal Met Goal 6:: Pt have pain 2/10 at worst and be 85% better with no LB ROM limitations except minor extension and wean down to 1x/weeek manual therapy with plan for exit strategy. Goal Progress: inconsistent Plan Plan: d/c to HEP and gym and pool. to doctor in May D/C Information Discharge Comments: Pt to continue via gym, pool and HEP. Sees doctor in May. d/c sentence: If there are questions or concerns regarding this patient's physical therapy, please feel free to call me at [phone]. Thank you for the referral of this patient. Sincerely, Rudi Madrigal, DPT, OCS, CSCS Balance/Gait/Functional tests Balance/Special Test Scores Functional Gait Assessment Score: 26 % Disability: 13.3400 Oswestry Low Back Score: 23 Improvement % Improvement: 70
== END 2024-03-04 19:00 | disposition home or self-care (01) ==
LOC: PT 10:00
PROVIDERS: PCP Internal Medicine
DX: Z98.1 Arthrodesis status (principal)
CPT/HCPCS: 97110; 97113; 97140; 97162; 97164; 97530

== ENCOUNTER 2024-09-30 10:00 | Outpatient (RCR) | payer MEDICAID, SELFPAY ==
--- NOTE | 2024-09-05 12:37 | HP.PTEVAL_ITS ---
Patient's Visit Information Visit Information Visit Information: ISAI DINERO is a 54 year old F referred to Physical Therapy by MARIVEL BIRCH with a diagnosis of LUMBAR SPINAL STENOSIS W/NEUROGENIC CLAUDICATION. Date of Evaluation: 09/05/24 Physical Therapist: Suzy Rodriguez PT, Cert MDT Visit Plan Frequency: 2-3x /Week Duration: 2-4 Weeks Plan: GAIT AND BALANCE TRAINING. POSTURE AND MOTION PICTURE DIRECTOR TRAINING. DLS STARTING WITH A NEUTRAL SPINE AND PROGRESSING ROM TOLERATED. CISCO LE ROM, STRETCHING AND STRENGTHENING. PATIENT DENIES HAVING ANY PHYSICIAN RESTRICTIONS. Subjective Subjective: Work/Leisure: PATIENT REPORTS SHE HAS NOT WORKED SINCE BACK SURGERY IN 2021. Disability: NO Present symptoms: CISCO LOW BACK PAIN R > L, R THIGH, LEG, AND FOOT PAIN. R LE SPASM AND NUMBNESS. R LE WEAKNESS. Present since: ABOUT 30 YEARS AGO Pain Scale: WORST 8/10, LEAST 3/10 Currently: 5/10 Is it getting better, worse or staying the same: GETTING WORSE Commenced as a result of: HEAVY LIFTING IN 20'S. ALSO USE TO RIDE HORSES AND FELL OFF A LOT. Worse: JUST ABOUT EVERYTHING. PROLONGED SITTING, PROLONGED STANDING, SLANT B OARD CALF STRETCHING, LIFTING, REACHING TO THE FLOOR HARD, SQUATTING DOWN, KNEELING DOWN AND GETTING BACK UP, BENDING, GETTING ON HANDS AND KNEES AND BACK UP. DELAYED ONSET AFTER THESE THINGS. CARRYING THINGS. WALKING WITHOUT AD VERY FAR. SITTING IS MISERY. Better: HANGING ON WALKER TO TAKE PRESSURE OFF HIPS, USING ROLLATOR, THERAPY POOL (PATIENT REPORTS SHE IS INDEP WITH A POOL PROGRAM AND HAS A POOL MEMBERSHIP), MASSAGE, HOT SHOWER, LIFTING WITH UPPER BODY/CORE STRENGTHENING, LYING FLAT ON BACK ON HOSPITAL BED. Disturbed sleep: YES Previous history/Previous treatment: BACK FUSION FROM L1 OR L2 TO S1 (5 CAGES AND ALSO HAS RODS). 4 BACK SURGERIES TOTAL WITH LAST ONE BEING AUG 2023. AQUATIC THERAPY. MASSAGE THERAPY. IN RECOVERY SINCE 2016 - NOT IN PAIN MGMT. Treatment this episode: Eliseo ELLIOTT THROUGH SURGEON. OTC COLEMAN. Coughing/sneezing/straining: POSITIVE FOR INCREASED. Gait: HAS ROLLATOR WITH HER ALMOST AT ALL TIMES WHEN OUT OF HOME. AD NEEDED IN HOME. Bowel or Bladder Dysfunction: NO Accidents: MULTIPLE PER PATIENT REPORT Unexplained weight loss: NO Imagin+ MO'S AGO. LUMBAR CAT SCAN PENDING 09/13/24. PMH/Recent major surgery: Asthma Back spasm Chronic back pain GERD (gastroesophageal reflux disease) Alcohol abuse Seasonal allergies Previous back surgery OTHER: ON ANTIBIOTIC FOR WOUND L EAR. Objective Objective: Sitting/Standing Posture: REDUCED LUMBAR LORDOSIS. Other Observations: INDEP GAIT AND TRANSFERS. PATIENT DEMO'S FREELY WALKING AROUND TREATMENT ROOM WITHOUT AD, SQUATTING, KNEELING, GETTING DOWN ON THE FLOOR ON HANDS AND KNEES AND BACK UP AGAIN FROM THESE POSITIONS INDEP'LY TO DEMONSTRATE THINGS WHILE GIVING SUBJECTIVE INFORMATION. SHE AMBULATES INTO PT WITH A ROLLATOR AND DOES INTERMITTENTLY LIMP ON THE R LE. Sensory deficit: ALTERED SENSATION R THIGH AND LEG REPORTED WITH TESTING COMPARED TO LEFT AND DESCRIBED MORE SENSATIVE ON THE RIGHT. ROM deficit: R HIP IR/ER TIGHTER THAN L. CISCO HS AND CALF TIGHTNESS R > L. Motor deficit: R HIP 4-/5, KNEE 4/5, ANKLE 3-/5. L HIP 5/5, KNEE 5/5, ANKLE 5/5. Reflexes: UNABLE TO ELICIT CISCO LE DTR'S. Dural Signs: POSITIVE CISCO LE'S. Lumbar mvmt loss: flex - MOD ext - RACHEL R SG - RACHEL L SG - RACHEL Core strength: POOR Palpation: MILD TENDERNESS WITH PALPATION OF R LOW BACK AND R GREATER TROCH REGIONS. ALSO GENERAL HYPERSENSATIVITY WITH LIGHT TOUCH REPORTED R THIGH AND LEG. TUG TEST TIME WITHOUT AD OR LOB: 11.53 SEC 30 SEC STS TEST WITHOUT UE ASSIST: 8 SEC OTHER: POSITIVE MUSTAPHA R LE. THIS PT INSTRUCTED PATIENT THROUGHOUT SESSION NOT TO OVER-DO-IT AND TO JUST DO WHAT SHE WAS COMFORTABLE DOING DUE TO PATIENT REPORTING DELAYED PAIN RESPONSE AFTER ACTIVITY DURING SUBJECTIVE INTERVIEW. Balance/Special Test Scores Oswestry Low Back Score: 28 Goals Goal 1:: DECREASE C/O LOW BACK AND R LE SX'S BY AT LEAST 50% TO EASE ADL'S. Goal Time Frame: 6-8 Weeks Goal 2:: IMPROVE SITTING, STANDING, WALKING, BENDING, LIFTING, SLEEP, SOCIAL LIFE, WORK AND HOMEMAKING FUNCTION WITH IMPROVED BACK OSWESTRY SCORE OF AT LEAST 5 POINTS. Goal Time Frame: 6-8 Weeks Goal 3:: INDEP HOME AND GYM EX PROGRAMS - PATIENT HAS [employer] GYM MEMBERSHIP. Rehabilitation Potential Physical Therapy Diagnosis: LOW BACK AND R LE TENDERNESS WITH TRUNK AND LE STIFFNESS AND WEAKNESS R LE > L LE. Rehabilitation Potential: Good Anticipated Interventions Patient/Client Instruction: Educate patient on: Condition, Plan of Care and Risk Factors For the Purpose of:: To improve self management Therapeutic Exercise to Include: Strength training, Balance training, Body mechanics, Postural training, Flexibilty training, Gait and locomotor training, Neuromotor development and Dynamic Lumbar Stabilization For the Purpose of:: To decrease pain, To increase ROM, To improve muscle performance and motor function, To improve ability to perform ADL's, To increase tolerance to activity/condition/position, To improve ability of physical actions for home/community/work/leisure, To improve gait and locomotor functions and To improve self management Cryotherapy (ice pack, ice massage): Yes Thermo therapy (hot pack): Yes For the Purpose of:: To decrease pain, To decrease swelling/inflammation and To improve nutrient delivery to tissue Text: Thank you for the opportunity to evaluate your patient. For Medicare and Medicare HMO plans, please review the plan of care and approve it. It will need to be FAXED BACK to us at [phone] for Medicare purposes. For Medicare only, by signing this I certify the plan of care. Please let me know if there are questions or concerns regarding this plan of care. Physician Signature: Date:
--- NOTE | 2024-09-30 11:01 | HP.PTDCSUM_ITS ---
Discharge Summary D/C summary: It has been my pleasure to treat ISAI DINERO referred by MARIVEL BIRCH, with the diagnosis of LUMBAR SPINAL STENOSIS W/NEUROGENIC CLAUDICATION for a total of 8 visit(s). Discharge Date: 09/30/24 Please see the following information for a summary of their discharge status. Subjective Subjective: PATIENT REPORTS THAT OVER-ALL SHE IS NO BETTER/NO WORSE SINCE STARTING PT. PATIENT REPORTS SHE IS DOING INDEP POOL EX 4-6 TIMES A WEEK AND WAS IN THE POOL THIS MORNING AND THAT HELPS LOOSEN UP HER LOWER BODY AND HELPS HER BALANCE. SHE REPORTS ALL OF THE LAND PT SESSIONS HAVE BEEN GOOD AND SHE ALWAYS LEAVES FEELING MORE CAPABLE OVER-ALL BUT INTERMITTENT RANDOM SPAMS DO TEMPORARILY SET HER BACK. PATIENT REPORTS SHE WOULD LIKE TO STOP FORMAL PT AT THIS TIME AND CONTINUE WITH LAND AND WATER EX ON HER OWN. SHE STATES SHE IS STILL AWAITING APPROVAL FOR HER CAT SCAN. Pain LB: Pain Intensity (Out of 10): 3 R LE: Pain Intensity (Out of 10): 3 Overall Improvement % Improvement: 2 Objective Objective/Function: PATIENT WAS SEEN TODAY FOR RE-ASSESSMENT OF PROGRESS TOWARD THE SET PT GOALS AND THE NEED FOR FURTHER PHYSICAL THERAPY VS READINESS FOR DISCHARGE. SHE IS INDEP IN A GYM EX PROGRAM NOW AND SHOWS IMPROVEMENT WITH ALL TESTING BELOW COMPARED TO INITIAL EVAL. PATIENT IS APPROPRIATE FOR D/C. ALTHOUGH OBJECTIVELY TESTS HAVE IMPROVED, SUBJECTIVELY PAIN % IMPROVEMENT AND OSWESTRY SCORE HAVE NOW. UPON EXAM TODAY: Motor deficit: R HIP 4-/5, KNEE 4/5, ANKLE 3-/5. L HIP 5/5, KNEE 5/5, ANKLE 5/5. Dural Signs: NEGATIVE CISCO LE'S. Lumbar mvmt loss: flex - MIN - INCREASE R BACK - NW ext - MOD - NE R SG - MOD - NE L SG - MOD - NE LUMBAR MVMTS ARE GUARDED ALL PLANES BUT PATIENT STATES THAT'S OK WHEN BENDING SIDE TO SIDE AND BACK WITH TESTING TODAY. SHE RECALLS THAT WHEN WE DID HER INITIAL EVAL SHE HAD NOT BEEN IN THE POOL FOR ABOUT A WEEK BECAUSE OF THE CUT ON HER EAR. Core strength: POOR Palpation: MILD TENDERNESS WITH PALPATION OF R LOW BACK AND R GREATER TROCH REGIONS. ALSO GENERAL HYPERSENSATIVITY WITH LIGHT TOUCH REPORTED R THIGH AND LEG. TUG TEST TIME WITHOUT AD OR LOB: 10.43 SEC 30 SEC STS TEST WITHOUT UE ASSIST: 12 SEC OTHER: NEGATIVE CISCO MUSTAPHA TESTS FOR PAIN BUT R STILL TIGHTER THAN L. Goals Goal 1:: DECREASE C/O LOW BACK AND R LE SX'S BY AT LEAST 50% TO EASE ADL'S. Goal Progress: Not Met Goal 2:: IMPROVE SITTING, STANDING, WALKING, BENDING, LIFTING, SLEEP, SOCIAL LIFE, WORK AND HOMEMAKING FUNCTION WITH IMPROVED BACK OSWESTRY SCORE OF AT LEAST 5 POINTS. Goal Progress: Progressing Goal 3:: INDEP HOME AND GYM EX PROGRAMS - PATIENT HAS [employer] GYM MEMBERSHIP. Goal Progress: Goal Met Plan Plan: D/C TO INDEP EX. PATIENT AGREEABLE. D/C Information d/c sentence: If there are questions or concerns regarding this patient's physical therapy, please feel free to call me at [phone]. Thank you for the referral of this patient. Sincerely, Suzy Rodriguez, PT, Cert MDT Balance/Gait/Functional tests Balance/Special Test Scores Oswestry Low Back Score: 28 Improvement % Improvement: 2
== END 2024-09-30 19:00 | disposition home or self-care (01) ==
LOC: PT 10:00
PROVIDERS: PCP Internal Medicine
DX: M48.062 Spinal stenosis, lumbar region with neurogenic claudication (principal)
CPT/HCPCS: 97110; 97162; 97530

== ENCOUNTER 2025-02-27 19:14 | Inpatient (IN) | payer MEDICAID, SELFPAY ==
[2025-02-27] VITALS (9 sets, daily range): BP systolic 112–147; BP diastolic 56–87; PULSE 64–93; RESP 16–30; TEMP 35.5–36.8; O2SAT 97–100; BMI 25.9; BMI 26.2
--- NOTE | 2025-02-27 19:31 | EKG12_ITS ---
Test Reason : DYSRHYTHMIA Blood Pressure : */* mmHG Vent. Rate : 73 BPM Atrial Rate : 73 BPM P-R Int : 162 ms QRS Dur : 102 ms QT Int : 392 ms P-R-T Axes : 82 190 71 degrees QTcB Int : 431 ms Normal sinus rhythm Biatrial enlargement Indeterminate axis Pulmonary disease pattern Incomplete right bundle branch block Right ventricular hypertrophy Abnormal ECG Confirmed by STUART NIXON, MATY ([id number]), acquisition editor JOANNA THOMPSON ([id number]) on 03/03/2025 9:41:42 AM Referred By: Confirmed By: MATY DAVIDSON MD
--- NOTE | 2025-02-27 19:31 | CT_ITS ---
PROCEDURE: STROKE BRAIN/HEAD WITHOUT CONT 02/27/2025 REASON FOR EXAM: NEURO DEFICIT, ACUTE, STROKE SUSPECTED TECHNIQUE: STROKE BRAIN/HEAD WITHOUT CONT Coronal and Sagittal reconstruction series were provided. One or more dose reduction techniques were used (e.g., Automated exposure control, adjustment of the mA and/or kV according to patient size, use of iterative reconstruction technique. RADIATION DOSE SUMMARY: CTDlvol: 44 mGy DLP: 829 mGycm COMPARISON: None. FINDINGS: Left frontal ill-defined hypodensity with loss of jones-white matter differentiation favoring acute infarction. No evidence of acute hemorrhage. No extra-axial blood or fluid collections. The ventricles are normal in size. The paranasal sinuses and mastoid air cells are clear. The calvarial vault and skull base are intact. CT/STROKE Brain/Head without Cont IMPRESSION: Left frontal lobe acute infarction. Critical results communicated to Dr. Kip Resendiz at 8:12 p.m.. Reading Location: [id number]
--- NOTE | 2025-02-27 19:32 | ED.VIS.STROK ---
HPI History of Present Illness Chief Complaint: Neuro S/Sx Narrative Narrative: 54-year-old female past medical history of previous back surgeries, alcoholism but has been sober for 8 years, presents with expressive aphasia and slightly slurred speech that she has had since about 1:00 yesterday afternoon. This is greater than 24 hours ago. She relates history that she was having problems answering the phone. She went to a meeting as well and was having difficulty speaking in front of large groups. She states that she is having problems finding her words that she wanted to say, and her friend noticed that she had slightly slurred speech as well. She denies any headache, no paresthesias, no other symptoms. Although her symptoms began yesterday, her mother noticed improvement over the telephone. However, patient states that something is wrong and that she has to think about things more and is having an expressive aphasia. Prior similar symptoms: No PFSH PFSH Medical History CKD (chronic kidney disease), stage II Tobacco use History of alcohol abuse Asthma Back spasm Chronic back pain GERD (gastroesophageal reflux disease) Seasonal allergies Home Medications ?Medication ?Instructions ?Recorded ?Last Taken ?Type diphenhydramine HCl 25 mg tablet 25 mg PO QHS PRN ALLERGIES 10/12/18 Unknown History (Benadryl Allergy) fexofenadine 180 mg tablet 180 mg PO DAILY 10/12/18 Unknown History (Leilani Allergy) ibuprofen 800 mg tablet 800 mg PO BID 10/12/18 Unknown History mometasone 50 mcg/actuation nasal 2 spray intranasal DAILY 10/12/18 Unknown History spray (Nasonex) spironolactone 50 mg tablet 50 mg PO BID 10/12/18 Unknown History albuterol sulfate 90 mcg/actuation 2 puff inhalation Q4H PRN PRN 02/27/25 Unknown History aerosol inhaler wheezing docusate sodium 100 mg capsule 100 mg PO BID 02/27/25 Unknown History (Colace) famotidine 20 mg tablet (Acid 20 mg PO BID 02/27/25 Unknown History Controller) Allergy/AdvReac Type Severity Reaction Status Date / Time niacin Allergy Nausea Verified 02/27/25 19:15 prednisone AdvReac Severe mood swings Verified 02/27/25 19:15 varenicline (From Chantix) AdvReac Severe mood swings Verified 02/27/25 19:15 Family History Father Diabetes Heart disease Myocardial infarction Mother Cancer Heart disease Brother Kidney disease Heart disease Surgical History (Updated 02/27/25 @ 21:[address] Heather Fletcher MD) Previous back surgery Social History (Updated 02/27/25 @ 21:[address] Heather Fletcher MD) adopted: No household members: children housing: house number of children: 2 current occupational status: employed current occupation: works at [employer] current occupational exposures/hazards: No pets and animals: Yes Smoking Status: Current every day smoker tobacco type: cigarettes Smoking packs per day: 1 Smoking cigarettes per day: 20.0 alcohol intake: former substance use type: does not use seatbelt use: always do you feel safe at home: Yes ROS ROS ED ROS Narrative Review of systems positive for expressive aphasia and minimal dysarthria. No headaches, no paresthesias of arms or legs, no chest pain or shortness of breath. Stuttering symptoms that began yesterday at 1 PM, over 24 hours ago. EXAM Physical Exam Narrative Exam Narrative: Afebrile. Vital signs noted. Nontoxic-appearing. Cardiovascular examination reveals a regular rate and rhythm. Lungs are clear to auscultation bilaterally. Abdomen is soft, nontender, with normal active bowel sounds. Neurological examination is nonfocal, nonlateralizing. NIH stroke scale is at 1 for very slight expressive aphasia, but she does answer questions correctly and appropriately. She had a very minimal dysarthria and answering 1 question so her stroke scale would be 2 at best. Const Vital Signs: 02/27/25 19:15 02/27/25 19:50 02/27/25 19:50 Temperature 96 F L Temperature Source Temporal Pulse Rate 93 91 Respiratory Rate 18 30 H Blood Pressure 145/76 H 147/87 H Blood Pressure Mean 99 107 Pulse Ox 97 99 Oxygen Delivery Method Room Air Room Air Room Air 02/27/25 20:01 02/27/25 20:30 02/27/25 21:00 Temperature Temperature Source Pulse Rate 88 87 64 Respiratory Rate 18 18 19 H Blood Pressure 112/83 H 114/78 138/78 H Blood Pressure Mean 92 90 98 Pulse Ox 98 99 99 Oxygen Delivery Method Room Air MDM MDM MDM Narrative Medical decision making narrative: Differential diagnosis includes but not limited to TIA versus stroke versus dehydration versus other electrolyte abnormality versus infectious cause. History and physical does not support pneumonia or UTI. Additionally, as her symptoms began greater than 24 hours ago I do not feel that she requires stroke team. However, CT of the brain and CTA of the head and neck will be obtained per stroke protocol as well as basic laboratory work and EKG. She is well outside the window for TNK, and additionally she does not have a debilitating dysarthria or expressive aphasia currently. I reviewed her laboratory work and she has normal white count of 10.2 with hemoglobin 15.0, hematocrit 43.8, platelet count 248, review of her BMP shows glucose of 107. High-sensitivity troponin is less than 6. EKG obtained and interpreted by myself independently as normal sinus rhythm at 73 bpm without ectopy or acute ST changes. No STEMI. I received a call from the radiologist regarding the CT of the brain. There is a left frontal lobe infarct noted. On review of the CTA of the head and neck and in discussion with the radiologist there is total occlusion of the left cervical ICA and cutoff of the distal left M1 M2 junction. I spoke with the stroke neurologist at [facility] Dr. Pierce, who states that no intervention is indicated as patient is outside the 24-hour window. They advised that the patient be admitted here for regular stroke workup. I discussed the patient with Dr. Fletcher for admission. Patient is in stable condition. History & Record Review Discussion w/independent historian: Patient Additional record(s) reviewed:: Prior ED visit (No recent ED visits) Lab Data Attestation: I reviewed the patient's lab results. Labs: Laboratory Results - last 24 hr 02/27/25 02/27/25 19:35 21:03 WBC 10.2 RBC 4.87 Hgb 15.0 Hct 43.8 MCV 89.9 MCH 30.8 MCHC 34.2 RDW Std Deviation 44.0 H RDW Coeff of Josemanuel 13.3 Plt Count 248 MPV 9.1 Immature Gran % (Auto) 0.300 Neut % (Auto) 57.2 Lymph % (Auto) 32.8 Page % (Auto) 8.0 Eos % (Auto) 1.1 Baso % (Auto) 0.6 Absolute Neuts (auto) 5.9 Absolute Lymphs (auto) 3.36 Nucleated RBC % 0 PT 16.6 H INR 1.3 APTT 29.5 Sodium 136 Potassium 4.2 Chloride 99 Carbon Dioxide 23.1 Anion Gap 14 BUN 21 H Creatinine 0.89 Estim Creat Clear Calc 69.60 Est GFR (MDRD) Non-Af 76 BUN/Creatinine Ratio 23.7 H Glucose 107 H Calcium 9.3 Troponin T High Sens < 6 POC Glucose 103 Radiography Diagnostic Testing: Clinical Impression(s) from Imaging Studies Brain CT 02/27/25 19:31 IMPRESSION: Left frontal lobe acute infarction. Critical results communicated to Dr. Kip Resendiz at 8:12 p.m.. Reading Location: [facility] Head/Neck CTA 02/27/25 19:50 IMPRESSION: 1. Complete occlusion of the left cervical ICA from its origin, with diminutive distal reconstitution at the cavernous segment and ICA terminus likely from collateral flow. 2. Abrupt cutoff of the left MCA distal M1-M2 segment junction, with mostly preserved distal reconstitution although there is regional diminished vascularity in the left frontal opercular region corresponding to the location of the acute infarct. 3. Moderate stenosis of the proximal right cervical ICA due to atheromatous plaque. Findings discussed via telephone with provider Kip Resendiz 02/27/2025 at 7:20 p.m. DREDGE BOAT ENGINEER. Reading Location: [facility] Discharge Plan Dx/Rx/DC Orders Clinical Impression: Stroke, Expressive aphasia, Dysarthria, History of alcoholism Disposition Disposition: Acute Care Hospital [facility]
--- NOTE | 2025-02-27 19:36 | PCA ---
no old ekg
[2025-02-27 19:43] LABS: Hematocrit 43.8 % (37-47); Hemoglobin 15.0 g/dL (12.0-15.0); Immature Granulocytes Count 0.030 X10^3/uL (0.0-0.0); Mean Corp Hgb Conc 34.2 g/dL (32-36); Mean Corpuscular Volume 89.9 fL (81-99); Mean Platelet Vol. 9.1 fl (6.2-12.0); NRBC Flagged by Analyzer 0 % (0-5); Platelet Count 248 K/mm3 (150-450); RBC Distribution Width CV 13.3 % (11.6-14.6); RBC Distribution Width SD 44.0 fl (35.1-43.9); Red Blood Count 4.87 M/mm3 (4.2-5.4); White Blood Count 10.2 K/mm3 (4.4-11.0)
--- NOTE | 2025-02-27 19:50 | CT_ITS ---
PROCEDURE: STROKE CTA HEAD AND NECK W/CON 02/27/2025 REASON FOR EXAM: NEURO DEFICIT, ACUTE, STROKE SUSPECTED TECHNIQUE: STROKE CTA HEAD AND NECK W/CON Multiplanar Sagittal and Coronal images were obtained. 3D and MIP multiplanar post processing was performed. CONTRAST: Isovue 370 VOLUME: 100 mL One or more dose reduction techniques were used (e.g., Automated exposure control, adjustment of the mA and/or kV according to patient size, use of iterative reconstruction technique). RADIATION DOSE SUMMARY: DLP: 701.44 mGycm COMPARISON: Concomitant noncontrast CT head same day 02/27/2025. FINDINGS: Exam degraded by suboptimal late timing of IV contrast with venous contamination. There is abrupt cutoff of the left MCA distal M1 segment, with mostly preserved distal reconstitution in the downstream M2-M3 segment branches and beyond, although there is diminished vascularity within the left frontal opercular region in the location of acute infarct. Left cervical ICA is completely occluded from its origin with mixed atheromatous plaque at the carotid bulb, and is nonopacified through to the left intracranial cavernous segment where reconstitutes although is diminutive in caliber, likely opacified via collateral supply. Remaining major intracranial arterial vascular branches of the right MCA, bilateral, basilar and bilateral rock crusher operator are patent without significant flow-limiting stenosis. No saccular aneurysm identified. Right cervical carotid and codominant vertebral arteries are patent. There is moderate mixed atheromatous plaque at the right carotid bifurcation extending into the right proximal ICA, with irregular soft plaque ulceration and moderate stenosis of the proximal right cervical ICA. No evidence for aneurysm/pseudoaneurysm or dissection of the cervical arteries. Conventional three-vessel aortic arch branching. CT/STROKE CTA Head AND Neck W/Con IMPRESSION: 1. Complete occlusion of the left cervical ICA from its origin, with diminutive distal reconstitution at the cavernous segment and ICA terminus likely from collateral flow. 2. Abrupt cutoff of the left MCA distal M1-M2 segment junction, with mostly pre served distal reconstitution although there is regional diminished vascularity in the left frontal opercular region correspond ing to the location of the acute infarct. 3. Moderate stenosis of the proximal right cervical ICA due to atheromatous cl que. Findings discussed via telephone with provider Kip Resendiz 02/27/2025 at 7:20 p.m. COMPUTER SYSTEMS INFORMATION DIRECTOR. Reading Location: [id number]
[2025-02-27 20:02] LABS: Prothrombin Time (Protime)PT. 16.6 SECONDS (11.7-14.9)
[2025-02-27 20:03] LABS: Partial Thromboplast Time 29.5 Seconds (24.1-36.2)
[2025-02-27 20:13] LABS: Troponin T High Sensitivity < 6 ng/L (<=14)
[2025-02-27 20:22] LABS: Anion Gap 14 (5-15); BUN 21 mg/dL (4-19); BUN/Creat Ratio 23.7 RATIO (10-20); Calcium,Total 9.3 mg/dL (7.6-11.0); Carbon Dioxide 23.1 mmol/L (21.0-32.0); Chloride 99 mmol/L (98-108); Estimated Creatinine Clearance 69.60 ml/min (50-250); Glucose 107 mg/dL (70-99); Potassium 4.2 mmol/L (3.3-5.1)
--- NOTE | 2025-02-27 21:07 | PCM.HP.STD ---
HPI - General General Date of Admission: 02/27/25 Date of Service: 02/27/25 Chief Complaint: Expressive aphasia, slurred speech. HPI Narrative The patient is a 54 y/o F w/ PMHx: Tobacco use, CKD stage II per GFR trending, Former EtOH abuse sober x 8 years, Chronic back pain, Asthma with allergic rhinitis, GERD who presents to the [facility] ED on 02/27/25 with history of onset expressive aphasia and slightly slurred speech starting at 1 PM in the afternoon the day prior to current presentation noting that she was having issues answering the phone and went to a meeting and was having difficulty speaking in front of large groups specifically issues finding her words and what to say and her friend also noticed that her speech was slightly slurred with no recent headaches or any other focal symptoms prompting ED evaluation. In the ED NIH stroke scale assessment 1 for very minimal dysarthria for answering a question inappropriately and potentially 2 at most per ED physician initial assessment. Workup in the ED included T96, heart rate 93, BP 145/76, respiratory rate 18, 97% room air with most recent repeat vitals heart rate 91, BP 147/87, respiratory rate 30, 99% on room air, CBC with WC 10.2, Hgb 15, platelet 248 without marked shift, BMP with BUN/creatinine 21/0.89, GFR 76, glucose 107, troponin less than 6, CT of the brain with a left frontal lobe acute infarction, CTA head and neck with complete occlusion of the left cervical ICA from its origin with diminutive distal reconstitution of the cavernous segment and ICA terminus likely from collateral flow, abrupt cut off of the left MCA distal M1/M2 segment junction with mostly preserved distal reconstitution although there is a regionally diminished vascularity in the left frontal upper lobe region corresponding to the location of the acute infarct, moderate stenosis of the proximal right cervical ICA due to atheromatous plaque, EKG with SR with no acute evidence of ischemia. ED physician did discuss with the stroke neurologist at [facility] Dr. Pierce given CTA findings he stated at this point there will be no interventions given the patient outside of the 24-hour window and although evidence of stenosis reconstitution was noted and recommended admission with regular stroke workup. In the ED requested that the patient be administered to full-strength aspirin therapy. [facility] Medical History CKD (chronic kidney disease), stage II Tobacco use History of alcohol abuse Asthma Back spasm Chronic back pain GERD (gastroesophageal reflux disease) Seasonal allergies Home Medications ?Medication ?Instructions ?Recorded ?Last Taken ?Type diphenhydramine HCl 25 mg tablet 25 mg PO QHS PRN 10/12/18 Unknown History (Benadryl Allergy) fexofenadine 180 mg tablet 180 mg PO DAILY 10/12/18 Unknown History (Leilani Allergy) ibuprofen 800 mg tablet 800 mg PO BID 10/12/18 Unknown History mometasone 50 mcg/actuation nasal 2 spray intranasal DAILY 10/12/18 Unknown History spray (Nasonex) ranitidine HCl 150 mg tablet 150 mg PO BID 10/12/18 Unknown History (Zantac) spironolactone 50 mg tablet 50 mg PO BID 10/12/18 Unknown History cyclobenzaprine 10 mg tablet 10 mg PO TID PRN Muscle Spasm #20 03/28/21 Unknown Rx TABLETS Allergy/AdvReac Type Severity Reaction Status Date / Time niacin Allergy Nausea Verified 02/27/25 19:15 prednisone AdvReac Severe mood swings Verified 02/27/25 19:15 varenicline (From Chantix) AdvReac Severe mood swings Verified 02/27/25 19:15 Family History Father Diabetes Heart disease Myocardial infarction Mother Cancer Heart disease Brother Kidney disease Heart disease Surgical History (Updated 02/27/25 @ 21:[address] Heather Fletcher MD) Previous back surgery Social History (Updated 02/27/25 @ 21:[address] Heather Fletcher MD) adopted: No household members: children housing: house number of children: 2 current occupational status: employed current occupation: works at [employer] current occupational exposures/hazards: No pets and animals: Yes Smoking Status: Current every day smoker tobacco type: cigarettes Smoking packs per day: 1 Smoking cigarettes per day: 20.0 alcohol intake: former substance use type: does not use seatbelt use: always do you feel safe at home: Yes ROS ROS Narrative Admission Review of Systems: CONSTITUTIONAL: No weight loss, fever, chills, + weakness or fatigue. HEENT: Eyes: No visual loss, blurred vision, double vision or yellow sclerae. Ears, Nose, Throat: No hearing loss, sneezing, congestion, runny nose or sore throat. SKIN: No rash or itching, lesions, wounds. CARDIOVASCULAR: No chest pain, chest pressure or chest discomfort, palpitations, edema, orthopnea, syncopal events. RESPIRATORY: No shortness of breath, cough or sputum, wheezing, hemoptysis. GASTROINTESTINAL: No anorexia, nausea, vomiting or diarrhea, abdominal pain, melena, BRBPR. GENITOURINARY: No dysuria, frequency, urgency or retention. NEUROLOGICAL: + Onset expressive aphasia, slurred speech. No headache, dizziness, syncope, paralysis, ataxia, numbness or tingling in the extremities, focal weakness, change in bowel or bladder control, seizure. MUSCULOSKELETAL: + muscle, back pain, joint pain or stiffness. HEMATOLOGIC: No anemia, bleeding or bruising. LYMPHATICS: No enlarged nodes. No history of splenectomy. PSYCHIATRIC: No history of depression or anxiety. ENDOCRINOLOGIC: No reports of sweating, cold or heat intolerance. No polyuria or polydipsia. ALLERGIES: + History of asthma with allergic rhinitis. Vital Signs Vital Signs Vital Signs: 02/27/25 19:15 02/27/25 19:50 02/27/25 19:50 Temperature 96 F L Temperature Source Temporal Pulse Rate 93 91 Respiratory Rate 18 30 H Blood Pressure 145/76 H 147/87 H Blood Pressure Mean 99 107 Pulse Ox 97 99 Oxygen Delivery Method Room Air Room Air Room Air 02/27/25 20:01 02/27/25 20:30 Temperature Temperature Source Pulse Rate 88 87 Respiratory Rate 18 18 Blood Pressure 112/83 H 114/78 Blood Pressure Mean 92 90 Pulse Ox 98 99 Oxygen Delivery Method Room Air Weight Weight: 155 lb 12.811 oz Body Mass Index (BMI) 25.9 Physical Exam Narrative Physical Examination: General: Awake, alert, oriented x 3 and cooperative, laying in ED bed, anxious, still having some mild expressive aphasia but seems intermittent. Skin: Normal color, normal turgor, no icterus, no cyanosis. HEENT: AT/NC, EOMI, PERRLA, mildly dry MM, no carotid bruits or JVD noted. Lungs: CTA bilaterally, moderate effort, mild decrease BL bases, no rales, ronchi or wheezing. Heart: Regular rate and rhythm; no gallop, rub audible. Abdomen: Soft, overweight NTTP, ND, normal BS, no markedly appreciated HSM. Extremities: No cyanosis, clubbing, or edema. Neurological: Patient awake, alert, oriented as noted, cognitive function intact; pupils equally reactive to light and accommodation, cranial nerves grossly normal, moving all 4 extremities, no focal deficits, strength preserved, FTN and HTS appropriate, sensation intact, still mild persistent expressive aphasia evident but able to carry on a conversation with only a couple points of notable aphasia. Psychiatric: Affect appears anxious, no acute evidence of depressive feelings. Results Lab / Micro Data 02/27/25 19:35 02/27/25 19:35 Labs: Laboratory Results - last 24 hr 02/27/25 19:35: WBC 10.2, RBC 4.87, Hgb 15.0, Hct 43.8, MCV 89.9, MCH 30.8, MCHC 34.2, RDW Std Deviation 44.0 H, RDW Coeff of Josemanuel 13.3, Plt Count 248, MPV 9.1, Immature Gran % (Auto) 0.300, Neut % (Auto) 57.2, Lymph % (Auto) 32.8, Owen % (Auto) 8.0, Eos % (Auto) 1.1, Baso % (Auto) 0.6, Absolute Neuts (auto) 5.9, Absolute Lymphs (auto) 3.36, Nucleated RBC % 0, Sodium 136, Potassium 4.2, Chloride 99, Carbon Dioxide 23.1, Anion Gap 14, BUN 21 H, Creatinine 0.89, Estim Creat Clear Calc 69.60, Est GFR (MDRD) Non-Af 76, BUN/Creatinine Ratio 23.7 H, Glucose 107 H, Calcium 9.3, Troponin T High Sens < 6 Imaging Radiology Impression Brain CT 02/27/25 19:31 IMPRESSION: Left frontal lobe acute infarction. Critical results communicated to Dr. Kip Resendiz at 8:12 p.m.. Reading Location: [id number] Head/Neck CTA 02/27/25 19:50 IMPRESSION: 1. Complete occlusion of the left cervical ICA from its origin, with diminutive distal reconstitution at the cavernous segment and ICA terminus likely from collateral flow. 2. Abrupt cutoff of the left MCA distal M1-M2 segment junction, with mostly preserved distal reconstitution although there is regional diminished vascularity in the left frontal opercular region corresponding to the location of the acute infarct. 3. Moderate stenosis of the proximal right cervical ICA due to atheromatous plaque. Findings discussed via telephone with provider Kip Resendiz 02/27/2025 at 7:20 p.m. [employer]. Reading Location: [id number] Assessment & Plan Assessment/Plan (1) Expressive aphasia: (2) Stroke: PLAN: Plan The patient is a 54 y/o F w/ PMHx: Tobacco use, CKD stage II per GFR trending, Former EtOH abuse sober x 8 years, Chronic back pain, Asthma with allergic rhinitis, GERD who presents to the [facility] ED on 02/27/25 with history of onset expressive aphasia and slightly slurred speech starting at 1 PM in the afternoon the day prior to current presentation noting that she was having issues answering the phone and went to a meeting and was having difficulty speaking in front of large groups specifically issues finding her words and what to say and her friend also noticed that her speech was slightly slurred with no recent headaches or any other focal symptoms prompting ED evaluation. #1. Acute left frontal lobe infarction with notable bilateral ICA significant disease/stenosis as well as abrupt cut off of the left MCA distal M1/M2 segment junction with mostly preserved distal reconstitution: Will admit to PCU, will obtain MRI Brain, ECHO, PT/OT/Speech/Nutrition evaluation per protocol. Will allow permissive HTN, maintain on asa (await neurology input on any additional antiplt regimen plan), add high-dose statin w/ AM FLP, fall precautions. Mag, TSH, FLP, HgbA1c requested. Maintain on fall and aspiration precautions. Initiate and continue neurology consultation. Will need follow-up outpatient vascular surgery evaluation given significant ICA disease as noted. #2. Elevated BP without HTN: Patient denies HTN history, notes using spironolactone for her potential skin versus hirsutism but unclear which will be held, PRN agents per stroke protocol. If BP elevated above goal once appropriate will add regimen. #3. Chronic back pain: Will temporarily hold cyclobenzaprine to avoid altering follow-up stroke scoring evaluations, encourage offloading, heating pad if needed, PT/OT consulted given #1 as noted. #4. Chronic asthma with allergic rhinitis: Not on chronic inhaper, will have PRN albuterol, HOB, IS parameters, continue home fexofenadine and nasonex regimen. #5. Chronic Kidney Disease Stage II per GFR trending: Admission BUN/Cr 21/0.89, GFR 76, baseline renal function 0.8, repeat BMP in AM. #6. Former EtOH Abuse: Patient notes being sober for 8 years, encourage continued sobriety. #7. Tobacco Abuse: Encouraged cessation, inpatient consultation per RT, NR if desired. #8. GERD: Will continue patient home ranitidine regimen. #9. DVT prophylaxis: Lovenox. #10. CODE status: Full Code status. Charges/Coding Visit Charges Inpatient E&M: 58504 Init Hosp L3
[2025-02-27 22:16] LABS: Troponin T High Sens 2 HR < 6 ng/L (<=14)
--- NOTE | 2025-02-27 22:53 | ECHOD_ITS ---
Reason For Study Reason For Study: TIA/CVA Procedure This was a 2D Doppler, Color Flow transthoracic echocardiogram. Exam performed in department. Left Ventricle Normal LV size. Left ventricular systolic function is normal. The left ventricular ejection fraction is 65 %. No regional wall motion abnormalities noted. Right Ventricle Normal RV size. Normal systolic function. Atria Normal left atrium. Normal right atrium. Bubble contrast study negative for right to left interatrial shunt. Mitral Valve Normal mitral valve. Tricuspid Valve Normal tricuspid valve. Aortic Valve Normal aortic valve. Pulmonic Valve Normal pulmonic valve. Great Vessels Normal aortic root. The pulmonary artery is normal size. Inferior vena cava collapse with respiration. Pericardium/Pleural No pericardial effusion. Medication Performed a rapid injection of agitated mix of 9 cc saline and 1cc air to assess for atrial septal defect. MMode/2D Measurements & Calculations Ao root diam: 2.8 cm LAV(MOD-bp): 26.7 ml LVAd ap4: 22.0 cm2 LAV(MOD-bp) Indexed: 14.9 ml/m2 LVLd ap4: 6.8 cm LAV(MOD-sp2): 28.3 ml EDV(MOD-sp4): 57.9 ml LAV(MOD-sp4): 22.5 ml EDV(sp4-el): 60.0 ml LVAs ap4: 8.9 cm2 LVLs ap4: 5.4 cm ESV(MOD-sp4): 12.5 ml ESV(sp4-el): 12.4 ml EF(MOD-sp4): 78.4 % EF(sp4-el): 79.4 % SV(MOD-sp4): 45.4 ml SV(sp4-el): 47.6 ml LA A4 area: 10.8 cm2 SI(MOD-sp4): 25.4 ml/m2 LA dimension(2D): 2.7 cm RA A4 area: 9.0 cm2 Time Measurements MV dec time: 0.23 sec Doppler Measurements & Calculations MV E max wang: 113.9 cm/sec Lat Peak E' Wang: 8.9 cm/sec Med Peak E' Wang: 11.3 cm/sec MV A max wang: 88.7 cm/sec E/E' lat: 12.8 E/E' med: 10.1 MV E/A: 1.3 MV V2 max: 131.1 cm/sec MV dec slope: 499.8 cm/sec2 Ao V2 max: 111.4 cm/sec MV max P.9 mmHg Ao max P.0 mmHg MV V2 mean: 65.3 cm/sec MV mean P.2 mmHg MV V2 VTI: 49.6 cm LV V1 max: 103.4 cm/sec PA V2 max: 119.2 cm/sec LV V1 max P.3 mmHg PA V2 mean: 89.1 cm/sec ECHO/Echo Complete Interpretation Summary Normal LV size. Left ventricular systolic function is normal. The left ventricular ejection fraction is 65 %. Bubble contrast study negative for right to left interatrial shunt. Ordering Physician: Heather Fletcher Referring Physician: Elvin Diaz M.D. Performed By: Faye Knutson and Student
[2025-02-27 23:02] LABS: Magnesium 2.1 mg/dL (1.5-2.2)
--- OUTSIDE RECORDS SUMMARY | 2025-02-27 23:19 | XMS RPT_ITS | CCD ---
Author Organization [facility] Care Team Providers Care Hand Knitter Name Role Phone Elvin Diaz MD Primary Care Provider [phone] CLARE DORSEY Admitting Unavailable JOSE G SUÁREZ Attending Unavailable ELVIN DIAZ Primary Care Unavailable Elvin Diaz MD Primary Care Provider [phone] Archual 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.Ruthy GOOD Unavailable Ambrose Birch MD Unavailable WAGNER CARDOSO Attending Unavailable WAGNER CARDOSO Admitting Unavailable ELVIN DIAZ Primary Care Unavailable ELVIN DIAZ Primary Care Unavailable HSAW KINSEY Consulting UnavailAMBROSE Mancini Attending Unavailable AMBROSE BIRCH Admitting Unavailable Ambrose Birch MD Unavailable Olvin Garrett PT Unavailable Elvin Diaz MD Primary Care Provider [phone] Unavailable Primary Care Provider Unavailmanda Alva 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.Nusrat GOOD Unavailable Elvin Diaz Primary Care Unavailable MERCEDEZ GASTELUM Referring Unavailable MERCEDEZ GASTELUM Attending Unavailable MERCEDEZ GASTELUM Attending Unavailable Elvin Diaz Primary Care Unavailable MERCEDEZ GASTELUM Referring Unavailable FUAD RUTLEDGE Attending Unavailable FUAD RUTLEDGE Admitting Unavailable JOSEPH, ELVIN Boswell Primary Care Unavailable JOSEPH, ELVIN Boswell Primary Care Unavailable LEXY FRANCIS Attending Unavaila NUSRAT Liang Referring Unavailable ELVIN DIAZ Primary Care Unavailable DIAZ, RENETTA Primary Care Unavailable AMBROSE BIRCH Attending Unavailable DIAZ, RENETTA Primary Care Unavailable MAHESH WILDER Referring Unavailable DIAZ, RENETTA Primary Care Unavailable AMBROSE BIRCH Attending Unavailable DIAZ, RENETTA Primary Care Unavailable DIAZ, RENETTA Primary Care Unavailable AFRICA CABA Attending Unavailable ABEREGGAFRICA Referring Unavailable DIAZ, RENETTA Primary Care Unavailable AMBROSE BIRCH Attending Unavailable DIAZ, RENETTA Primary Care Unavailable DIAZ, RENETTA Primary Care Unavailable NUSART ALVA Attending Unavailable DIAZ, RENETTA Primary Care Unavailable TIM TRIPP Attending Unavailable EREGGAFRICA Referring Unavailable DIAZ, RENETTA Primary Care Unavailable AMBROSE BIRCH Attending Unavailable DIAZ, RENETTA Primary Care Unavailable DIAZ, RENETTA Primary Care Unavailable DIAZ, RENETTA Primary Care Unavailable WENDY STONE Referring Unavailable DIAZ, RENETTA Primary Care Unavailable Allergies Allergy Classification Reported Allergen(s) Allergy Type Date of Onset Reaction(s) Facility Aminoketones (2 sources) buPROPion Drug Allergy 1 Mental Status Change [facility] Work Phone: Anti-Epileptic Agents (2 sources) gabapentin Drug Allergy 3 Mental Status Change [facility] Cats (2 sources) Cat Animal All[facility] (Dander) [facility] Work Phone: Corticosteroids (2 sources) predniSONE Drug Allergy 6 Mental Status Change [facility] Work Phone: Dogs (2 sources) Dog Animal Allergy (Dander) 5 Hives [facility] Work Phone: Niacin (2 sources) Niacin Drug Allergy 6 Rash, Vomiting [facility] Work Phone: Pollen (4 sources) Grass pollen Substance Allergy 5 Intolerance, Hives [facility] Work Phone: Quinolones (antibiotic) (2 sources) Ciprofloxacin Drug Allergy 1 Vomiting [facility] Work Phone: (20 sources) buPROPion; Translations: [BUPROPION] Drug Allergy 1 Mental Status Change [facility] Work Phone: (20 sources) Cat; Translations: [CATS] Allergy to substance 5 [facility] Work Phone: (20 sources) Ciprofloxacin; Translations: [CIPROFLOXACIN] Drug Allergy 1 Vomiting [facility] Work Phone: (20 sources) Dog; Translations: [DOGS] Allergy to substance 5 [facility] Work Phone: (20 sources) Grass pollen; Translations: [GRASS POLLEN] Drug Allergy 5 Intolerance [facility] Work Phone: (20 sources) Niacin; Translations: [NIACIN] Drug Allergy 6 Rash, Vomiting [facility] Work Phone: (20 sources) Pollen; Translations: [POLLEN] Allergy to substance [facility] Work Phone: (20 sources) predniSONE; Translations: [PREDNISONE] Drug Allergy 6 Mental Status Change [facility] Work Phone: (20 sources) Tree; Translations: [TREES] Allergy to substance 5 Intolerance [facility] Work Phone: (20 sources) Homeopathic Products; Translations: [HOMEOPATHIC PRODUCTS] Drug Allergy 5 [facility] Work Phone: (2 sources) varenicline Drug Allergy 1 mood swings [facility] (20 sources) gabapentin; Translations: [GABAPENTIN] Drug Allergy 3 Mental Status Change [facility] (1 source) Niacin Drug Allergy 1 [facility] (1 source) predniSONE Drug Allergy 1 [facility] (1 source) varenicline Drug Allergy 1 [facility] Medications Current Medications Medication Drug Class(es) Dates Sig (Normalized) Sig (Original) [id number] actuat albuterol 0.09 mg/actuat metered dose inhaler (20 sources) beta2-Adrenergic Agonist Start: 03-09-2023 End: 04-04-2024 take 2 puff(s) by inhalation every four hours as needed for wheezing albuterol HFA (PROVENTIL HFA, VENTOLIN HFA) 90 mcg/actuation inhaler Indications: Asthma with chronic obstructive pulmonary disease (COPD) (HCC) Inhale 2 Puffs as instructed every 4 hours as needed for wheezing/shortness of breath. 1 Each 5 04/04/2024 Active Start: 08-16-2019 End: 03-09-2023 take 2 puff(s) by inhalation every four hours as needed albuterol sulfate (PROAIR RESPICLICK) 90 mcg/actuation aepb Indications: Wheezing Inhale 2 Puffs as instructed every 4 hours as needed. 1 Inhaler 08/16/2019 07/04/2022 Discontinued Comment on above: Inhale 2 Puffs as in structed every 4 hours as needed. Inhale 2 Puffs as in structed every 4 hours as needed for wheezing/shortness of breath. amoxicillin 875 mg / clavulanate 125 mg oral tablet (9 sources) Penicillin-class Antibacterial Start: End: take 1 tablet by mouth twice daily amoxicillin-clavula corrine potassium (AUGMENTIN) 875-125 mg per tablet Indications: Acute non-recurrent sinusitis, unspecified location Take 1 tablet by mouth two times a day for 5 days. 10 tablet 05/31/2024 06/05/2024 Active Start: 11-12-2023 End: 11-19-2023 take 1 tablet by mouth twice daily amoxicillin-clavulanate potassium (AUGMENTIN) 875-125 mg per tablet Take 1 tablet by mouth two times a day for 7 days. 14 tablet 0 11/12/2023 11/19/2023 Active Start: 09-18-2022 End: 09-25-2022 take 1 tablet by mouth twice daily amoxicillin-clavulanic acid (AUGMENTIN) 875-125 mg per tablet Take 1 tablet by mouth twice daily for 7 days. 14 tablet 0 09/18/2022 09/25/2022 Active Start: 06-23-2022 End: 06-30-2022 take 1 tablet by mouth every twelve hours amoxicillin-clavulanic acid (AUGMENTIN) 875-125 mg per tablet Take 1 tablet by mouth every 12 hours for 7 days. Start the day before dental implant and take full course. 14 tablet 0 06/23/2022 06/30/2022 Active Comment on above: Take 1 tablet by christina every 12 hours for 7 days. Start the day before dental implant and take full course. Take 1 tablet by christina twice daily for 7 days. Take 1 tablet by christina twice daily for 5 days. Take 1 tablet by christina two times a day for 7 days. diphenhydrAMINE hydrochloride 25 mg oral tablet (20 sources) Histamine-1 Receptor Antagonist Start: 10-13-19 take 1 tablet by mouth at bedtime Diphenhydramine Hcl (Benadryl Allergy) 25 mg tablet Active 25 MG PO AT BEDTIME October 12, 2018 1:00am End: 08-27-2023 take 2 tablets by mouth once daily at bedtime diphenhydramine HCl (BENADRYL ALLERGY ORAL) Take by mouth. 2 tablets qhs 08/27/2023 Discontinued take 2 tablets by mo ut once daily at bedtime diphenhydramine HCl (BENADRYL ALLERGY ORAL) Take by mouth. 2 tablets qhs 0 Suspended take 2 tablets by mo uth once daily at bedtime diphenhydramine HCl (BENADRYL ALLERGY ORAL) Take by mouth. 2 tablets qhs 0 Active diphenhydramine HCl (BENADRYL ORAL) Take by mouth daily at bedtime. 0 Suspended diphenhydramine HCl (BENADRYL ORAL) Take by mouth daily at bedtime. 0 Active Comment on above: Take by mouth daily at bedtime. Take by mouth. 2 tab lets qhs docusate sodium 100 mg oral capsule (20 sources) Start: 2 End: 4 take 1 capsule by mouth twice daily docusate sodium (COLACE) 100 mg capsule Take 1 capsule by mouth two times a day. 60 capsule 08/27/2023 Active Comment on above: Take 1 capsule by mo uth twice daily. [facility] doxycycline hyclate 100 mg oral tablet (12 sources) Tetracycline-clas s Drug Start: End: take 1 tablet by mouth twice daily doxycycline (VIBRA-TABS) 100 mg tablet Indications: Rhinosinusitis Take 1 tablet by mouth two times a day for 7 days. 14 tablet 09/30/2024 10/07/2024 Active Start: 08-30-2024 End: 09-09-2024 take 1 tablet by mouth twice daily doxycycline (VIBRA-TABS) 100 mg tablet Indications: Wound cellulitis Take 1 tablet by mouth two times a day for 10 days. 20 tablet 08/30/2024 09/09/2024 Active Start: 06-06-2024 End: 06-13-2024 take 1 tablet by mouth twice daily doxycycline (VIBRA-TABS) 100 mg tablet Indications: Bacterial sinusitis Take 1 tablet by mouth two times a day for 7 days. 14 tablet 06/06/2024 06/13/2024 Active Start: 11-21-2023 End: 11-28-2023 take 1 tablet by mouth twice daily doxycycline (VIBRA-TABS) 100 mg tablet Take 1 tablet by mouth two times a day for 7 days. 14 tablet 0 11/21/2023 11/28/2023 Active Start: 05-30-2023 End: 06-06-2023 take 1 tablet by mouth twice daily doxycycline (VIBRA-TABS) 100 mg tablet Take 1 tablet by mouth two times a day for 7 days. 14 tablet 05/30/2023 06/06/2023 Start: 02-09-2023 End: 02-16-2023 take 1 tablet by mouth twice daily doxycycline (VIBRA-TABS) 100 mg tablet Indications: Folliculitis Take 1 tablet by mouth twice daily for 7 days. 14 tablet 0 02/09/2023 02/16/2023 Active Comment on above: Take 1 tablet by christina th twice daily for 7 days. Take 1 tablet by christina th two times a day for 7 days. famotidine 20 mg oral tablet (20 sources) Histamine-2 Receptor Antagonist Start: 08-29-2023 take 1 tablet by mouth twice daily famotidine (PEPCID) 20 mg tablet Take 20 mg by mouth two times a day. 08/29/2023 Active take 1 tablet by mouth twice ev ly famotidine (PEPCID ORAL) Take 1 tablet by mouth twice daily. 0 Suspended take 1 tablet by mouth twice ev ly famotidine (PEPCID ORAL) Take 1 tablet by mouth twice daily. 0 Active Comment on above: Take 1 tablet by christina twice daily. Take 20 mg by mouth two times a day. Patient should start on August 29, 2023. fexofenadine hydrochloride 180 mg oral tablet (20 sources) Histamine-1 Receptor Antagonist Start: 10-13-19 19 take 1 tablet by mouth once daily Fexofenadine (Stanley Allergy) 180 mg tablet Active 180 MG PO DAILY October 12, 2018 1:00am Comment on above: Take 180 mg by mouth once daily. lactobacillus rhamnosus gg [id number] unt oral capsule (18 sources) Start: 06-06-20 take 1 capsule by mouth once daily lactobacillus rhamnosus (CULTURELLE) 10 billion cell capsule Take 1 capsule by mouth once daily. 30 capsule 06/06/2024 Active methocarbamol 750 mg oral tablet (20 sources) Muscle Relaxant Start: 12-03-19 End: 01-02-20 take 1 tablet by mouth every twelve hours as needed methocarbamol (ROBAXIN) 750 mg tablet Indications: Spinal stenosis of lumbar region with neurogenic claudication Take 1 tablet by mouth every 12 hours as needed. 60 tablet 12/02/2024 01/01/2025 Active Start: 12-27-2023 End: 08-28-2024 take 1 tablet by mouth every eight hours as needed methocarbamol (ROBAXIN) 750 mg tablet Take 1 tablet by mouth three times a day as needed. 30 tablet 08/29/2024 Active Start: 08-27-2023 End: 11-13-2023 take 1 tablet by mouth every eight hours as needed methocarbamol (ROBAXIN) 750 mg tablet Take 1 tablet by mouth three times a day as needed. 30 tablet 0 11/14/2023 Active Start: 05-01-2023 End: 07-30-2023 take 1 tablet by mouth twice daily methocarbamol (ROBAXIN) 750 mg tablet Take 1 tablet by mouth twice daily. 60 tablet 2 05/01/2023 07/30/2023 Start: 01-23-2023 End: 03-15-2023 take 1 tablet by mouth every eight hours as needed methocarbamol (ROBAXIN) 750 mg tablet Take 1 tablet by mouth three times daily as needed (muscle pain). 90 tablet 0 02/13/2023 03/15/2023 Active Start: 03-14-2022 End: 11-16-2022 take 1 tablet by mouth every eight hours as needed methocarbamol (ROBAXIN) 750 mg tablet TAKE 1 TABLET BY MOUTH THREE TIMES DAILY NEEDED (MUSCLE PAIN). 90 tablet 0 10/17/2022 11/16/2022 Active Start: 03-03-2022 take 1 tablet by christina th four times daily methocarbamol (ROBAXIN) 750 mg tablet Take 1 tablet by mouth four times daily. 0 03/03/2022 Suspended Start: 01-12-2022 End: 02-28-2022 take 1 tablet by mouth three times daily methocarbamol (ROBAXIN) 500 mg tablet Take 1 tablet by mouth three times daily for 28 days. 42 tablet 1 01/31/2022 02/28/2022 Suspended Comment on above: Take 1 tablet by christina th three times daily as needed (for muscle spasms) for up to 28 days. Take 1 tablet by christina th three times daily for 28 days. Take 1 tablet by christina th four times daily. Take 1 tablet by christina th three times daily. Take 750 mg by mouth three times daily. Take 1 tablet by christina th three times daily as needed (muscle pain). Take 750 mg by mouth twice daily. Take 1 tablet by christina th twice daily. [The details of the medication are not available because there are pending changes by a home health clinician.] Take 1 tablet by christina th three times a day as needed. mometasone furoate 0.05 mg/actuat metered dose nasal spray (2 sources) Corticosteroid Start: 10-12-2018 Mometasone (Nasonex) 50 mcg/actuation spray,non-aerosol Active 2 SPRAY INTRANASAL DAILY October 12, 2018 1:00am mupirocin 0.02 mg/mg topical ointment (20 sources) RNA Synthetase Inhibitor Antibacterial Start: 07-04-2023 End: 07-04-2024 mupirocin (BACTROBAN) 2 % ointment Apply 1/2 ointment with a cotton swab in each nostril 2x daily for five days preop 22 g 0 07/04/2023 07/04/2024 Active Start: 05-12-2022 End: 05-16-2022 mupirocin (BACTROBAN) 2 % oi ntment Apply 1/2 ointment with a cotton swab in each nostril 2x daily for five days preop 22 g 0 05/12/2022 05/16/2022 Active Start: 02-18-2022 End: 02-23-2022 apply 0.5 g nasal route at bedtime mupirocin (BACTROBAN) 2 % ointment Apply 1/2 Bactroban with a cotton swab to each nostril in the morning and at bedtime starting 5 days prior to surgery. 22 g 0 02/18/2022 02/23/2022 Active Start: 12-31-2021 End: 01-07-2022 mupirocin (BACTROBAN) 2 % oi ntment Apply 1/2 ointment with a cotton swab in each nostril 2x daily for five days preop 22 g 0 12/31/2021 01/07/2022 Active Start: 07-08-2021 End: 11-08-2021 mupirocin (BACTROBAN) 2 % oi ntment Indications: Pre-op testing Apply 1/2 ointment with a cotton swap in each nostril 2x daily for five days preop 22 g 0 07/08/2021 11/08/2021 Discontinued Comment on above: Apply 1/2 ointment with a cotton swap in each nostril 2x daily for five days preop Apply 1/2 ointment with a cotton swab in each nostril 2x daily for five days preop Apply 1/2 Bactroban with a cotton swab to each nostril in the morning and at bedtime starting 5 days prior to surgery. oxyCODONE hydrochloride 5 mg oral tablet (20 sources) Opioid Agonist Start: 05-21-2022 End: 05-28-2022 oxyCODONE IR (ROXICODONE) 5 mg immediate release tablet Indications: Post-op pain Take 1-2 tablets by mouth every 6 hours as needed for pain for up to 7 days. Patient has current prescription (from 05/19) but is taking 2 pills every 6 hours so will run out at end of day 05/21. Do not start before May 21, 2022. 42 tablet 0 05/21/2022 05/28/2022 Active Start: 03-14-2022 End: 03-21-2022 take 1 tablet by mouth every six hours as needed for pain oxyCODONE IR (ROXICODONE) 5 mg immediate release tablet Indications: Orthopedic aftercare , S/P lumbar spinal fusion , Lumbar stenosis with neurogenic claudication Take 1 tablet by mouth every 6 hours as needed for pain for up to 7 days. 24 tablet 0 03/14/2022 03/21/2022 Active Start: 03-03-2022 End: 03-10-2022 take 1 tablet by mouth every six hours as needed oxyCODONE IR (ROXICODONE) 5 mg immediate release tablet Take 1 tablet by mouth every 6 hours as needed for up to 7 days. 0 03/03/2022 03/10/2022 Suspended Start: 01-17-2022 take 1 tablet by christina th every six hours as needed oxyCODONE IR (ROXICODONE) 5 mg immediate release tablet Indications: Post-operative state Take 1-2 tablets by mouth every 6 hours as needed for pain. 50 tablet 0 01/17/2022 Suspended Start: 01-12-2022 take 1 tablet by christina th every six hours as needed oxyCODONE IR (ROXICODONE) 5 mg immediate release tablet Indications: Post-operative state Take 1-2 tablets by mouth every 6 hours as needed for pain. 50 tablet 0 01/12/2022 Active Comment on above: Take 1-2 tablets by mouth every 6 hours as needed for pain. Take 1 tablet by christina th every 6 hours as needed for up to 7 days. Take 1 tablet by christina th every 6 hours as needed for pain for up to 7 days. Take 1-2 tablets by mouth every 6 hours as needed for pain for up to 7 days. Patient has current prescription (from 05/19) but is taking 2 pills every 6 hours so will run out at end of day 05/21. Do not start before May 21, 2022. raNITIdine 150 mg oral tablet (2 sources) Histamine-2 Receptor Antagonist Start: 9 take 1 tablet by mouth twice daily Ranitidine Hcl (Zantac) 150 mg tablet Active 150 MG PO TWICE A DAY October 12, 2018 1:00am sennosides (SENNACON ORAL) (20 sources) take 1 tablet by mouth once daily sennosides (SENNACON ORAL) Take 1 tablet by mouth once daily. Active take 1 tablet by mouth once arturo y sennosides (SENNACON ORAL) Take 1 tablet by mouth once daily. 0 Suspended take 1 tablet by mouth once arturo y sennosides (SENNACON ORAL) Take 1 tablet by mouth once daily. 0 Active sennosides (JOHNNY ACON ORAL) Take by mouth. 0 Active Comment on above: Take by mouth. Take 1 tablet by christina th once daily. spironolactone 50 mg oral tablet (20 sources) Aldosterone Antagonist Start: 09-02-19 take 1 tablet by mouth twice daily spironolactone (ALDACTONE) 50 mg tablet Indications: Hirsutism Take 1 tablet by mouth two times a day. 90 tablet 09/02/2024 Active Start: 12-27-2023 End: 08-28-2024 take 1 tablet by mouth twice daily spironolactone (ALDACTONE) 50 mg tablet Indications: Hirsutism Take 1 tablet by mouth two times a day. 60 tablet 11 04/15/2024 08/28/2024 Discontinued Start: 09-07-2023 take 1 tablet by christina th twice daily spironolactone (ALDACTONE) 50 mg tablet Indications: Hirsutism Take 1 tablet by mouth two times a day. 60 tablet 5 09/07/2023 Active Start: 08-14-2023 take 1 tablet by christina th twice daily spironolactone (ALDACTONE) 50 mg tablet Indications: Hirsutism Take 1 tablet by mouth two times a day. 60 tablet 5 08/14/2023 Suspended Start: 10-12-2018 End: 07-26-2023 take 1 tablet by mouth twice daily spironolactone (ALDACTONE) 50 mg tablet Indications: Hirsutism , Elevated dehydroepiandrosterone (DHEA) level Take 1 tablet by mouth twice daily. 60 tablet 03/30/2020 06/23/2021 Discontinued Comment on above: Take 1 tablet by christina th twice daily. Per Dr. Roger Elam, dermatology. Take 1 tablet by christina th twice daily. Take 1 tablet by christina th two times a day. Triamcinolone (20 sources) Corticosteroid Start: 08-29-2023 triamcinolone acetonide (NASACORT AQ NASAL) Use 1 [place] in the nose as needed (allergies). 08/29/2023 Active Start: 08-29-2023 triamcinolone acetonide (NASACORT AQ NASAL) Use 1 [place] in the nose. qAM as needed for allergies Patient should start on August 29, 2023. 08/29/2023 Active Start: 08-29-2023 triamcinolone acetonide (NASACORT AQ NASAL) Use 1 [place] in the nose. qAM as needed for allergies Patient should start on August 29, 2023. 0 08/29/2023 Active Start: 12-04-2015 End: 03-03-2022 triamcinolone acetonide (MORENITA ACORT AQ) 55 mcg nasal inhaler Use 2 Sprays in the nose. 12/04/2015 03/03/2022 Discontinued triamcinolone ac etonide (NASACORT AQ NASAL) Use 1 [place] in the nose. qAM as needed 0 Suspended triamcinolone ac etonide (NASACORT AQ NASAL) Use 1 [place] in the nose. qAM as needed 0 Active Comment on above: Use 2 Sprays in the nose. Use 1 [place] in the n ose. qAM as needed Use 1 [place] in the n ose. qAM as needed for allergies Patient should start on August 29, 2023. Completed/Discontinued Medications Medication Drug Class(es) Dates Sig (Normalized) Sig (Original) acetaminophen 500 mg oral tablet (20 sources) Start: 08-27-2023 End: 04-04-2024 take 2 tablets by mouth every eight hours acetaminophen (TYLENOL) 500 mg tablet Take 2 tablets by mouth every 8 hours. 60 tablet 08/27/2023 04/04/2024 Discontinued (Discontinued by Patient) Start: 05-19-2022 End: 05-26-2022 take 2 tablets by mouth every eight hours acetaminophen (TYLENOL) 500 mg tablet Take 2 tablets by mouth every 8 hours for 7 days. 42 tablet 0 05/19/2022 05/26/2022 Active Start: 03-14-2022 take 2 tablets by mo uth every eight hours acetaminophen (TYLENOL) 500 mg tablet Take 2 tablets by mouth every 8 hours. 0 03/14/2022 Active Start: 03-03-2022 End: 03-10-2022 take 2 tablets by mouth every eight hours acetaminophen (TYLENOL) 500 mg tablet Take 2 tablets by mouth every 8 hours for 7 days. 42 tablet 0 03/03/2022 03/10/2022 Suspended Start: 01-12-2022 End: 01-26-2022 take 3 tablets by mouth every eight hours acetaminophen (TYLENOL) 325 mg tablet Take 3 tablets by mouth every 8 hours for 14 days. 120 tablet 0 01/12/2022 01/26/2022 Active Acetaminophen 50 0 mg cap Take 1,000 mg by mouth. 0 Suspended Comment on above: Take 3 tablets by mo uth every 8 hours for 14 days. Take 2 tablets by mo uth every 8 hours for 7 days. Take 2 tablets by mo uth every 8 hours. Take 1,[address] [facility]. acetaminophen 325 mg / oxyCODONE hydrochloride 5 mg oral tablet (2 sources) Opioid Agonist Start: 03-08-20 End: 10-13-19 take 1 tablet by mouth every four hours as needed Oxycodone-Acetaminop hen Discontinued 1 - 2 TABLET PO EVERY 4 HOURS NEEDED March 08, 2016 12:00am October 12, 2018 2:59pm benzonatate 100 mg oral capsule (3 sources) Non-narcotic Antitussive Start: 05-30-20 End: 07-03-20 take 1 capsule by mouth every eight hours as needed benzonatate (TESSALON PERLES) 100 mg capsule Take 1 capsule by mouth three times a day as needed for cough. 15 capsule 05/30/2023 07/03/2023 Discontinued (Discontinued by Patient) Comment on above: Take 1 capsule by mo ut three times a day as needed for cough. betamethasone 3 mg/ml / betamethasone acetate 3 mg/ml injectable suspension (2 sources) Corticosteroid Start: 02-26-20 End: 02-26-20 betamethasone acetate-betamethason e sodium phosphate 3 mg injection (CELESTONE) Start: 02-25-2025 End: 02-25-2025 3 mg, Injection - FOR ORTHO USE ONLY, ONCE, 1 dose, Starting on Mon02/25/25 at 1057, Until Mon02/25/25 at 1057 bisacodyl 5 mg delayed release oral tablet (10 sources) Stimulant Laxative Start: 03-03-2022 End: 03-29-2022 bisacodyl (DULCOLAX) 10 mg supp 1 Suppository by RECTAL route once daily as needed. 0 03/03/2022 03/29/2022 Discontinued Start: 03-03-2022 End: 03-29-2022 take 2 tablets by mouth every twelve hours as needed bisacodyl EC (DULCOLAX) 5 mg EC tablet Take 2 tablets by mouth twice daily as needed. 0 03/03/2022 03/29/2022 Discontinued Comment on above: Take 2 tablets by [facility] twice daily as needed. 1 Suppository by REC RYNE route once daily as needed. 30 ml bupivacaine hydrochloride 5 mg/ml injection (2 sources) Amide Local Anesthetic Start: 02-25-2025 End: 02-25-2025 BUPivacaine (PF) 0.5 % (5 mg/mL) 1 mL injection Start: 02-25-2025 End: 02-25-2025 1 mL, Injection - FOR ORTHO USE ONLY, ONCE, 1 dose, Starting on Mon02/25/25 at 1057, Until Mon02/25/25 at 1057 cyclobenzaprine hydrochloride 10 mg oral tablet (3 sources) Muscle Relaxant Start: 04-01-2021 End: 06-23-2021 take 1 tablet by mouth twice daily cyclobenzaprine (FLEXERIL) 10 mg tablet TAKE 1 ORAL TWICE A DAY FOR 28 DAYS 04/01/2021 06/23/2021 Discontinued Start: 03-28-2021 take 10 mg by mouth three times daily Cyclobenzaprine Active 10 MG PO THREE TIMES A DAY March 28, 2021 12:00am gabapentin 300 mg oral capsule (20 sources) Anti-epileptic Agent Start: 05-09-2022 End: 02-09-2023 gabapentin (NEURONTIN) 300 mg capsule Take 1 capsule by mouth as needed (Take 3 capsules by mouth daily at bedtime AND 2 capsules twice daily with meals.) for up to 30 days. 210 capsule 3 05/09/2022 09/19/2022 Discontinued Start: 03-14-2022 End: 04-13-2022 take 3 capsules by mouth once daily at bedtime, then take 2 capsules by mouth twice daily at mealtime gabapentin (NEURONTIN) 300 mg capsule Take 3 capsules by mouth daily at bedtime AND 2 capsules twice daily with meals. Do all this for 30 days. 210 capsule 0 03/14/2022 Active Start: 03-03-2022 take 3 capsules by m outh once daily at bedtime gabapentin (NEURONTIN) 300 mg capsule Take 3 capsules by mouth daily at bedtime for 7 days. 0 03/03/2022 Suspended Start: 03-03-2022 gabapentin (NE URONTIN) 300 mg capsule Take 2 capsules by mouth twice daily for 7 days. At 0900 and 1600 0 03/03/2022 Suspended Start: 12-20-2021 End: 03-19-2022 gabapentin (NEURONTIN) 300 m g capsule TAKE 1 CAPSULE BY MOUTH DIRECTED FOR 30 DAYS. 900 MG AT NIGHT BEFORE BED, 300 MG IN THE MORNING AND 300 MG IN THE AFTERNOON 150 capsule 0 02/17/2022 03/19/2022 Suspended Start: 11-01-2021 End: 12-11-2021 gabapentin (NEURONTIN) 300 m g capsule 2 caps qhs, 1 in am 90 capsule 1 11/01/2021 Active Start: 04-28-2021 End: 06-10-2021 gabapentin (NEURONTIN) 300 m g capsule 2 caps qhs, 1 in am 90 capsule 1 04/28/2021 06/10/2021 Discontinued Start: 04-05-2021 End: 06-23-2021 gabapentin (NEURONTIN) 300 m g capsule TAKE 1 ORAL TWICE A DAY FOR TWO DAYS THEN THREE TIMES A DAY FOR 11 DAYS 04/05/2021 06/23/2021 Discontinued Comment on above: 2 caps qhs, 1 in am Take 1 capsule [facility] for 30 days. 900 mg at night before bed, 300 mg in the morning. Take 1 capsule by mo [facility] as directed for 30 days. 900 mg at night before bed, 300 mg in the morning and 300 mg in the afternoon Take 3 capsules by m outh daily at bedtime for 7 days. Take 2 capsules by m outh twice daily for 7 days. At 0900 and 1600 Take 3 capsules by m outh daily at bedtime AND 2 capsules twice daily with meals. Do all this for 30 days. Take 1 capsule by mo [facility] as needed (Take 3 capsules by mouth daily at bedtime AND 2 capsules twice daily with meals.) for up to 30 days. ibuprofen 200 mg oral tablet (20 sources) Nonsteroidal Anti-inflammatory Drug Start: 06-23-2021 take 4 tablets by mouth twice daily ibuprofen (MOTRIN) 200 mg tablet Indications: Chronic midline low back pain without sciatica Take 4 tablets by mouth twice daily. 0 06/23/2021 Active Start: 10-12-2018 take 800 mg by mouth twice daily Ibuprofen Active 800 MG PO TWICE A DAY October 12, 2018 1:00am End: 08-18-2023 take 600 mg by mouth three times daily ibuprofen (MOTRIN ORAL) Take 600 mg by mouth three times a day. Active End: 06-23-2021 ibuprofen (MOTRIN ORAL) Take by mouth. As needed 06/23/2021 Discontinued ibuprofen (MOTRI N ORAL) Take by mouth. 0 Active Comment on above: Take 4 tablets [facility] daily. Take by mouth. Take 600 mg by mouth three times a day. lactobacillus acidophilus 460 mg oral capsule (17 sources) Start: End: take 1 capsule by mouth once daily Lactobacillus acidophilus (FLORAJEN ACIDOPHILUS) 20 billion cell capsule Take 1 capsule by mouth once daily. 30 capsule 11/21/2023 04/04/2024 Discontinued (Course of therapy completed) Start: 03-25-2021 End: 06-23-2021 take 1 capsule by mouth once daily Lactobacillus acidophilus (FLORAJEN ACIDOPHILUS) 20 billion cell cap Take 1 capsule by mouth once daily. 30 capsule 03/25/2021 06/23/2021 Discontinued Comment on above: Take 1 capsule by [facility] once daily. 10 ml lidocaine hydrochloride 10 mg/ml injection (4 sources) Antiarrhythmic, Amide Local Anesthetic Start: 02-25-2025 End: 02-25-2025 lidocaine (PF) 10 mg/mL (1 %) 1 mL injection (XYLOCAINE) Start: 02-25-2025 End: 02-25-2025 1 mL, Injection - FOR ORTHO USE ONLY, ONCE, 1 dose, Starting on Mon02/25/25 at 1057, Until Mon02/25/25 at 1057 Start: 03-08-2016 End: 10-12-2018 apply 1 dose topically once daily Lidocaine Discontinued 1 PATCH TOPICAL DAILY March 08, 2016 12:00am October 12, 2018 2:59pm polyethylene glycol 3350 07771 mg powder for oral solution (20 sources) Osmotic Laxative Start: 08-27-2023 End: 04-04-2024 polyethylene glycol 3350 17 gram packet Take 1 Packet by mouth once daily. Dissolve dose in 4 - 8 ounces of liquid and take as directed. 30 Each 08/27/2023 04/04/2024 Discontinued (Discontinued by Patient) Start: 03-03-2022 End: 03-29-2022 polyethylene glycol 3350 (MD RALAX, GLYCOLAX) 17 gram packet Take 1 Packet by mouth twice daily. Dissolve dose in 4 - 8 ounces of liquid and take as directed. 0 03/03/2022 03/29/2022 Discontinued Comment on above: Take 1 Packet by christina th twice daily. Dissolve dose in 4 - 8 ounces of liquid and take as directed. Take 1 Packet by christina th once daily. Dissolve dose in 4 - 8 ounces of liquid and take as directed. Polyethylene Glycols (17 sources) End: 02-09-2023 polyethylene glycol 3350 (MIRALAX ORAL) Take by mouth. 0 02/09/2023 Discontinued polyethylene gly col 3350 (MIRALAX ORAL) Take by mouth. 0 Active Comment on above: Take by mouth. sennosides (SENNA ORAL) (14 sources) sennosides (JOHNNY A ORAL) Take by mouth. 0 Suspended sennosides (JOHNNY A ORAL) Take by mouth. 0 Active Comment on above: Take by mouth. sennosides, prison 8.6 mg oral tablet (3 sources) Start: 01-12-2022 End: 01-19-2022 take 1 tablet by mouth twice daily senna (SENOKOT) 8.6 mg tab Take 1 tablet by mouth twice daily for 7 days. 14 tablet 0 01/12/2022 01/19/2022 Comment on above: Take 1 tablet by christina th twice daily for 7 days. Problems Active Problems Problem Classification Problem Date Documented Date Episodic/Chronic Asthma (20 sources) IgE-mediated allergic asthma; Translations: [Mild intermittent asthma, uncomplicated] Onset: 05-17-2022 Resolved: 08-25-2023 09-16-2019 Chronic Chronic obstructive pulmonary disease and bronchiectasis (20 sources) Asthma-chronic obstructive pulmonary disease overlap syndrome; Translations: [Chronic obstructive pulmonary disease, unspecified] Onset: 05-17-2022 05-19-2022 Chronic Deficiency and other anemia (1 source) Anemia; Translations: [Anemia, unspecified] 04-04-2024 Episodic Disorders of lipid metabolism (20 sources) Pure hypercholesterolemia; Translations: [Pure hypercholesterolemia, unspecified] Onset: 06-28-2021 06-28-2021 Chronic Esophageal disorders (20 sources) Gastroesophageal reflux disease; Translations: [Gastro-esophageal reflux disease without esophagitis] 09-16-2019 Chronic Immunizations and screening for infectious disease (1 source) Vaccination needed; Translations: [Encounter for immunization] Episodic Mood disorders (1 source) Depressive disorder; Translations: [Depression, unspecified depression type] Chronic Nutritional deficiencies (1 source) Vitamin D deficiency; Translations: [Vitamin D deficiency, unspecified] 04-04-2024 Chronic Osteoarthritis (2 sources) Arthritis of joint of toe; Translations: [Primary osteoarthritis, unspecified ankle and foot] Chronic Other acquired deformities (1 source) Acquired scoliosis; Translations: [Other secondary scoliosis, lumbar region] Chronic Other bone disease and musculoskeletal deformities (2 sources) Osteopenia; Translations: [Other specified disorders of bone density and structure, unspecified thigh] Episodic Other circulatory disease (2 sources) Iliac artery stenosis; Translations: [Stricture of artery] Chronic Other connective tissue disease (2 sources) Ganglion of hand; Translations: [Ganglion, unspecified hand] Episodic Other connective tissue disease (1 source) Ganglion cyst of right hand; Translations: [Ganglion, right hand] Episodic Other connective tissue disease (3 sources) Tenosynovitis of left radial styloid; Translations: [Radial styloid tenosynovitis [de Quervain]] 02-21-2025 Episodic Other connective tissue disease (4 sources) Pain in left thumb; Translations: [Pain in left finger(s)] 02-21-2025 Episodic Other connective tissue disease (1 source) Tendinitis of hand; Translations: [Other enthesopathies, not elsewhere classified] 02-25-2025 Episodic Other connective tissue disease (1 source) Other enthesopathies, not elsewhere classified; Translations: [Tendinitis of thumb] Onset: 02-25-2025 Episodic Other connective tissue disease (1 source) Pain in left finger(s); Translations: [Pain of left thumb] Onset: 02-21-2025 Episodic Other connective tissue disease (1 source) Radial styloid tenosynovitis [de Quervain]; Translations: [De Quervain's tenosynovitis, left] Onset: 02-21-2025 Episodic Other ear and sense organ disorders (1 source) Pain of ear structure; Translations: [Otalgia, unspecified ear] Episodic Other lower respiratory disease (2 sources) Cough; Translations: [Acute cough] 09-30-2024 Episodic Other nervous system disorders (20 sources) Chronic pain; Translations: [Other chronic pain] Onset: 09-14-2015 Resolved: 05-17-2016 05-17-2016 Chronic Other nervous system disorders (1 source) Chronic low back pain; Translations: [Other chronic pain] 02-24-2025 Chronic Other nervous system disorders (1 source) Other chronic pain; Translations: [Chronic bilateral low back pain with right-sided sciatica] Onset: 02-24-2025 Chronic Other skin disorders (1 source) Folliculitis; Translations: [Follicular disorder, unspecified] Episodic Other upper respiratory infections (5 sources) Chronic sinusitis; Translations: [Chronic sinusitis, unspecified] 05-30-2023 Chronic Other upper respiratory infections (3 sources) Acute pansinusitis; Translations: [Acute pansinusitis, unspecified] Episodic Otitis media and related conditions (1 source) Otitis media; Translations: [Unspecified nonsuppurative otitis media, bilateral] Episodic Peripheral and visceral atherosclerosis (20 sources) Peripheral vascular disease, unspecified; Translations: [Peripheral vascular disease, unspecified] Onset: 02-09-2023 Chronic Residual codes; unclassified (1 source) Past history of procedure; Translations: [Other specified postprocedural states] Episodic Spondylosis; intervertebral disc disorders; other back problems (20 sources) Spinal stenosis of lumbar region; Translations: [Spinal stenosis, lumbar region without neurogenic claudication] Onset: 03-27-2015 Resolved: 03-01-2022 03-27-2015 Episodic Substance-related disorders (20 sources) Tobacco user; Translations: [Nicotine dependence, unspecified, uncomplicated] Onset: 04-11-2007 04-11-2007 Chronic Unclassified (1 source) Acute cough; Translations: [Acute cough] Onset: 09-30-2024 Past or Other Problems Problem Classification Problem Date Documented Da te Episodic/Chronic Allergic reactions (20 sources) Eczema; Translations: [Dermatitis, unspecified] Onset: 04-22-2013 Resolved: 06-23-2021 06-23-2021 Episodic Aortic and peripheral arterial embolism or thrombosis (20 sources) Thrombosis of iliac artery; 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] Onset: 02-15-2022 Resolved: 03-01-2022 Chronic Gastritis and duodenitis (20 sources) Duodenitis; Translations: [Duodenitis without bleeding] Onset: 09-14-2011 Resolved: 06-23-2021 06-23-2021 Episodic Malaise and fatigue (20 sources) Asthenia; Translations: [Weakness] Onset: 03-05-2022 Resolved: 08-25-2023 03-05-2022 Episodic Other aftercare (20 sources) Follow-up status; Translations: [Encounter for other orthopedic aftercare] Onset: 03-03-2022 Resolved: 08-25-2023 03-05-2022 Episodic Other aftercare (1 source) Encounter for other orthopedic aftercare; Translations: [Orthopedic aftercare] Onset: 03-14-2022 Episodic Other connective tissue disease (20 sources) History of lumbar fusion; Translations: [Arthrodesis status] Onset: 02-24-2022 Episodic Other connective tissue disease (2 sources) Arthrodesis status; Translations: [S/P lumbar spinal fusion] Onset: 03-14-2022 Episodic Other endocrine disorders (20 sources) Disorder of endocrine system; Translations: [Other specified endocrine disorders] Onset: 04-08-2005 Resolved: 09-16-2019 09-16-2019 Episodic Other inflammatory condition of skin (20 sources) Prurigo papule; Translations: [Other prurigo] Onset: 04-22-2013 04-22-2013 Episodic Other inflammatory condition of skin (20 sources) Inflammatory dermatosis; Translations: [Lichen simplex chronicus] Onset: 04-22-2013 Resolved: 06-23-2021 06-23-2021 Episodic Other inflammatory condition of skin (20 sources) Pruritus, unspecified; Translations: [Unspecified pruritic disorder] Onset: 04-22-2013 Resolved: 09-16-2019 09-16-2019 Episodic Other inflammatory condition of skin (20 sources) Pruritic rash; Translations: [Other prurigo] Onset: 04-22-2013 Resolved: 03-01-2022 03-01-2022 Episodic Other inflammatory condition of skin (20 sources) Lichen simplex chronicus; Translations: [Lichen simplex chronicus] Onset: 04-22-2013 Resolved: 06-23-2021 06-23-2021 Episodic Other injuries and conditions due to external causes (20 sources) Excoriation of skin; Translations: [Other injury of unspecified body region, initial encounter] Onset: 04-22-2013 Resolved: 09-16-2019 09-16-2019 Episodic Other lower respiratory disease (20 sources) Cough; Translations: [Acute cough] Onset: 05-30-2006 Resolved: 09-16-2019 05-30-2023 Episodic Other nervous system disorders (20 sources) Acute postoperative pain; Translations: [Other acute postprocedural pain] Onset: 02-23-2022 Resolved: 05-19-2022 02-24-2022 Episodic Other nutritional; endocrine; and metabolic disorders (20 sources) Hypomagnesemia; Translations: [Hypomagnesemia] Onset: 02-24-2022 Resolved: 03-01-2022 02-24-2022 Chronic Other screening for suspected conditions (not mental disorders or infectious disease) (20 sources) Endocrine finding; Translations: [Other specified abnormal findings of blood chemistry] Onset: 09-16-2019 Resolved: 03-01-2022 09-16-2019 Episodic Other skin disorders (20 sources) Hirsutism; Translations: [Hirsutism] Onset: 09-16-2019 09-16-2019 Episodic Other skin disorders (20 sources) Acne; Translations: [Other acne] Onset: 04-08-2005 Resolved: 09-16-2019 09-16-2019 Episodic Other skin disorders (20 sources) Asteatosis cutis; Translations: [Xerosis cutis] Onset: 04-22-2013 Resolved: 09-16-2019 09-16-2019 Episodic Other skin disorders (1 source) Hirsutism; Translations: [Hirsutism] Onset: 08-27-2023 Episodic Phlebitis; thrombophlebitis and thromboembolism (20 sources) H/O: Deep vein thrombosis; Translations: [Personal history of other venous thrombosis and embolism] Onset: 03-05-2022 03-05-2022 Episodic Residual codes; unclassified (20 sources) Postoperative state; Translations: [Other specified postprocedural states] Onset: 01-07-2022 Resolved: 03-01-2022 01-07-2022 Episodic Residual codes; unclassified (20 sources) Noncompliance with treatment; Translations: [Patient's noncompliance with other medical treatment and regimen] Onset: 02-28-2022 Resolved: 08-25-2023 03-03-2022 Episodic Residual codes; unclassified (20 sources) Tobacco user; Translations: [Tobacco use] Onset: 04-11-2007 Episodic Screening and history of mental health and substance abuse codes (20 sources) Ex-smoker; Translations: [Personal history of nicotine dependence] Onset: 12-13-2021 Resolved: 08-25-2023 12-13-2021 Episodic Skin and subcutaneous tissue infections (20 sources) Pyoderma; Translations: [Pyoderma] Onset: 04-22-2013 Resolved: 09-16-2019 09-16-2019 Episodic Spondylosis; intervertebral disc disorders; other back problems (20 sources) Arthropathy of lumbar facet joint; Translations: [Spondylosis without myelopathy or radiculopathy, lumbar region] Onset: 05-17-2016 Resolved: 03-01-2022 05-17-2016 Chronic Suicide and intentional self-inflicted injury (20 sources) Suicidal thoughts; Translations: [Suicidal ideations] Onset: 03-03-2022 Resolved: 07-04-2022 03-05-2022 Episodic Results Test Name Value Interpretation Reference Range Facility Additional Injections: L ext ensor compartment 1on 02-25-2025 Tim Tripp V, DO 02/25/2025 10:58 AM Additional Injections: L extensor compartment 1 for de Quervain's tenosynovitis 02/25/2025 10:57 AM The procedure site was prepped in the usual sterile fashion. Medications: 3 mg betamethasone acetate-betamethasone sodium phosphate 6 mg/mL Anesthetics: 1 mL lidocaine (PF) 10 mg/mL (1 %); 1 mL BUPivacaine (PF) 0.5 % (5 mg/mL) Outcome: tolerated well, no immediate complications Post-injection instructions were reviewed with the patient and the patient voiced understanding of these instructions. Informed Consent Consent Obtained: Verbal [place] Protocol SIGN IN TIME OUT [facility] CNOVon 02-25-2025 CNOV Office Visit (FRFHWS ) ELSY DINERO ([id number]) 1970 F Date Time Provider Department 02/25/25 10:30 AM TIM TRIPP V [facility] During your visit today, we recorded the following information about you: An Dorman MA 02/25/2025 10:58 AM Signed Patient presents with: Left wrist DeQuervain's: Referred by Africa Caba X-ray 02/21/25 AMB ROOMING INTAKE FLOWSHEET DATA Pain Pain Level: 2 Pain Location: (Left thumb) Description: (Feels like she strained her thumb) Duration Amount of Time: 2 Duration Units: Months Frequency: Intermittent Intervention/Comfort measure: Medication Tim Tripp V, DO 02/25/2025 10:58 AM Signed Subjective The patient is a 54-year-old female presenting for left thumb pain. Left Thumb Pain: - Pain localized to the thumb, with minimal involvement of the wrist. - Onset 2 months ago, following use of free weights. - Aggravated by gripping, pinching, and lifting objects as light as 5 lbs. - Pain is more pronounced in the thumb joint rather than the wrist. - Denies pain over the radial styloid. - Has tried massage and wrapping the thumb with no relief. - Pain interferes with daily activities, including using walking sticks and a walker. - Left-handed; pain significantly impacts ability to perform tasks. - Has a history of weak wrists and uses gloves when lifting weights. - Denies pain with wrist and thumb extension. Lumbar Spinal Fusion: - Has undergone 4 back surgeries in the past 3 years. - Fused from L1 to S1 with 5 cages and rods. - Participates in aqua therapy at [facility]. - Uses a walker for mobility. Musculoskeletal: (+) left thumb pain, (+) left thumb weakness, (-) wrist pain Objective Last menstrual period 03/02/2015. General: No acute distress. 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 Imaging: - X-ray: No degenerative changes or bony abnormalities. Assessment AND Plan 1. De Quervain's tenosynovitis, left (M65.4) 2. Tendinitis of thumb (M77.8) - Exam findings and symptomatology consistent with thumb extensor tendinitis; no evidence of de Quervain's tenosynovitis. - Recent X-rays show no osseous abnormalities or degenerative changes. - Administered Celestone injection into the tendon sheath to reduce inflammation. - Fitted patient with an Exos thumb splint to immobilize the thumb for a short period of a few days to allow inflammation to subside. - Advised patient on the use of the splint, which can be removed for showering and pool activities. - Patient understands and agrees with the treatment plan. Additional Injections: L extensor compartment 1 for de Quervain's tenosynovitis 02/25/2025 10:57 AM The procedure site was prepped in the usual sterile fashion. Medications: 3 mg betamethasone acetate-betamethasone sodium phosphate 6 mg/mL Anesthetics: 1 mL lidocaine (PF) 10 mg/mL (1 %); 1 mL BUPivacaine (PF) 0.5 % (5 mg/mL) Outcome: tolerated well, no immediate complications Post-injection instructions were reviewed with the patient and the patient voiced understanding of these instructions. Informed Consent Consent Obtained: Verbal [place] Protocol SIGN IN TIME OUT Recording using [employer] software for draft documentation of the visit was discussed with the patient/authorized pharmacy services representative; all questions welcomed and answered. Patient/authorized pharmacy services representative agreed to proceed An Dorman MA 02/25/2025 11:04 AM Signed PT ASSESSMENT - CASTING ROOM Elsy presents for Application of brace. Applied DonJoy Short thumb spica hand based brace size small to Left hand Patient has been instructed in Care and proper application of brace. Patient signed [employer] PPA electronically for billing and verbalized understanding. An Dorman MA Referring Provider: AFRICA CABA [[id number]] Allergies As of Date: 02/25/2025 Noted Allergy Reaction GABAPENTIN 12/26/2022 1 - Mental Status Change PREDNISONE 05/30/2006 1 - Mental Status Change Comments: FEELS LIKE I'M GOING NUTS CATS 12/27/2004 4 - Hives CIPROFLOXACIN 01/29/2011 11 - Vomiting Comments: States can take if she eats with it. DOGS 12/27/2004 4 - Hives GRASS POLLEN 12/27/2004 5 - Intolerance NIACIN 08/31/2005 2 - Rash 11 - Vomiting POLLEN 12/27/2004 4 - Hives TREES 12/27/2004 5 - Intolerance Date Reviewed: 02/25/2025 Reviewed by: An Dorman MA - Fully Assessed Reason for Visit: Left wrist DeQuervain's [Other] Cmt: Referred by Africa Caba X-ray 02/21/25 Primary Visit Diagnosis:Tendinitis of thumb [M77.8] Other Visit Diagnosis:De Quervain's tenosynovitis, left [M65.4] Order(s):CONSULT PANEL TO ORTHOPAEDICS [[id number]] Order #: [id number]: 1 Additional Injections: L extensor compartment 1 [FCG252] Order #: [id number] [] [place] (more content not included)... Normal [facility] CNOVon 02-24-2025 CNOV Office Visit (SSINDP ) ELSY DINERO ([id number]) 1970 F Date Time Provider Department 02/24/25 9:45 AM AMBROSE BIRCH [facility]IN[facility] During your visit today, we recorded the following information about you: Weight 71.2 kg Ambroes Birch MD 02/24/2025 4:14 PM Signed SPINE SURGERY ESTABLISHED PATIENT PCP: Elvin Diaz MD REFERRING PROVIDER: No referring provider defined for this encounter. Assessment/Plan (G89.29, M54.41) Chronic bilateral low back pain with right-sided sciatica (primary encounter diagnosis) 1. Chronic bilateral low back pain with right-sided sciatica (G89.29) - Patient reports significant improvement in pain following SI joint corticosteroid injection on December 24, but still experiences weakness, spasms, and paresthesia in the right leg. - Physical exam reveals 4+/5 strength in right dorsiflexion; hyperesthesia noted in the right leg. - Discussed potential for up to 3-4 corticosteroid injections per year; patient inquires about scheduling next injection in approximately 6 months. - Ordered DEXA scan; last performed in 2020. - Continue current physical therapy regimen and home exercises. - April will contact patient to provide an updated spinal implant card. - Follow-up appointment scheduled to reassess symptoms and discuss further management. Subjective History of Present Illness: Elsy Dinero is a 54-year-old female presenting for follow-up after a recent sacroiliac (SI) joint injection. Elsy reports significant improvement in pain following the SI joint injection on December 24, describing it as great. Prior to the injection, she experienced crippling pain when walking short distances, which has now improved. She still experiences weakness and spasms in the right leg after exertion, and the leg feels droppy when tired. She also reports a persistent knot in the perineum that wraps around and describes the leg as feeling slappy. She notes a sharp pull in the leg, which she manages with stretching exercises learned in physical therapy. She describes a tickly sensation in the right leg, which she refers to as hyper feeling, and notes that this sensation is not present in the left leg. Elsy is concerned about the frequency of cortisone injections due to a family history of osteoporosis. Her last bone density scan was in 2020. She is considering limiting the injections to twice a year. Elsy has been actively engaging in physical activities, including pool therapy 4-5 times a week and using exercise machines 4 times a week. She also uses free weights at home 3 times a week but recently injured her thumb, which she plans to have evaluated. She is left-handed and relies on her hands to use her walker. She expresses uncertainty about her ability to maintain a 40-hour work week due to her physical limitations. She mentions that she can power through a day but is unsure about sustaining this level of activity long-term. Elsy has a history of a pelvic and femur fracture at age 16, which required surgical repair. She also has a spinal implant and requests an updated card for security screenings. Genitourinary: (+) perineal knot sensation Musculoskeletal: (+) right leg weakness, (+) right leg muscle spasms, (+) right leg sharp pulling pain Neurological: (+) right leg tingling, (+) right leg drooping Major Risk Factors Notable surgical risk factors: Smoking status: Every Day BMI:26.13 kg/m2. Obesity normal BMI: 26.13 kg/m2 High: BMI > 40 Moderate: BMI 30-40 Normal: BMI < 30 Diabetes normal Last HbA1C: 5.4 - 04/21/2015 High: A1C > 8 Moderate: A1C 7-8 Normal: A1C < 7 Hx of DVT / PE normal High: dx of DVT / PE Normal: no dx of DVT / PE Smoking High Risk Last Status: Every Day High: Current smoker Normal: Non smoker Narcotics Use normal High:NarxCare >=300 Moderate: 100-299 Normal: 0-99 Depression normal High: PHQ-9 >14 Moderate: PHQ-9 5-14 Normal: PHQ-9 < 5 Data from [facility] Epic on prior therapies: Last PT session: No date on file in last 365 days Last Epidural Steroid Injection: No epidural injection on file for last 365 days Last Spine Surgery: Date - 08/23/2023 with Ambrose Birch. Procedure: - ARTHRODESIS POSTERIOR INTERBODY 1 NTRSPC LUMBAR, POSTERIOR NON-SEGMENTAL INSTRUMENTATION, INSJ BIOMCHN DEV INTERVERTEBRAL DSC SPC W/ARTHRD, VIEYRA FACETECTOMYANDFORAMOT 1 VRT SGM EA ADDL SGM Objective PHYSICAL EXAM Wt 71.2 kg (157 lb) LMP 03/02/2015 BMI 26.13 kg/m? General: No acute distress. MSK/Ext: Right dorsiflexion strength 4+/5. other muscles normal no tenderness to palpation Results: Imaging: (2020) Bone Density Scan Medical Decision Making: Problems: Low: Stable chronic illness Data: Unique source(s) for external note(s) reviewed: 1 Unique test result(s) reviewed: 2 Discussed management or test w/ external physician/Q (more content not included)... Normal [facility] CNOVon 02-21-2025 CNOV Office Visit (WOUCA) ELSY DINERO ([id number]) 1970 F Date Time Provider Department 02/21/25 10:15 AM AFRICA CABA WORUSSELL During your visit today, we recorded the following information about you: Temperature Pulse Respiration Blood pressure 97.8 degrees 80/minute 18/minute 135/83 Weight 71.5 kg Africa Caba PA 02/21/2025 11:26 AM Signed [facility] Subjective Elsy Dinero is a 54 year old female. Patient presents with: Hand Pain: L thumb into wrist pain x2 months, denies injury or fall HPI Left Thumb Pain and Weakness: - Pain and weakness in the left thumb x2 months. - Pain localized to the base of the thumb, exacerbated by gripping and clenching. - Denies significant pain at rest. - Reports soreness to palpation along the thumb. - Left-handed; difficulty performing tasks such as opening bottles and using walking sticks. - Has tried wrapping the thumb with minimal relief. - Taking Motrin 600 mg TID for back pain, which provides some relief for thumb pain. Back Pain: - History of four major back surgeries. - Currently taking Motrin 600 mg TID for back pain management. Review of Systems Musculoskeletal: (+) left thumb pain, (+) left thumb soreness Neurological: (+) left hand weakness, (+) difficulty gripping, (+) dropping objects Objective BP 135/83 Pulse 80 Temp 36.6 ?C (97.8 ?F) Resp 18 Wt 71.5 kg (157 lb 10.1 oz) LMP 03/02/2015 SpO2 99% BMI 26.23 kg/m? Physical Exam Vitals and nursing note reviewed. Constitutional: General: She is not in acute distress. Appearance: Normal appearance. She is not toxic-appearing. Musculoskeletal: Left hand: Tenderness and bony tenderness present. No swelling or deformity. Normal range of motion. Decreased strength of thumb/finger opposition. Normal capillary refill. Normal pulse. Comments: Patient has tenderness over the dorsum of the left thumb mainly over the first metacarpal. She has positive Dina's test. Slightly decreased strength with thumb to finger opposition. She has full ROM all digits left hand. She is able to touch each finger with the thumb. Normal finger spread. Normal wrist extension. Radial pulse 2+. 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 Skin: General: Skin is warm and dry. Neurological: Mental Status: She is alert. { 1. Pain of left thumb (M79.645) 2. De Quervain's tenosynovitis, left (M65.4) - Left thumb pain for two months, exacerbated by gripping and clenching; tenderness noted along the tendon. - Dina's test positive, indicating possible De Quervain's tenosynovitis. - Currently taking Motrin 600 mg TID for back pain. - Ordered X-ray of the left hand to rule out arthritis or other abnormalities. - Referral to orthopedics for further evaluation and potential corticosteroid injection. and Recording using [employer] software for draft documentation of the visit was discussed with the patient/authorized pharmacy services representative; all questions welcomed and answered. Patient/authorized pharmacy services representative agreed to proceed Diagnosis and treatment plan were discussed and questions were answered to the patient's satisfaction. Pt acknowledged understanding of concepts and follow up plan. Specific signs and symptoms that would indicate the need for higher level of care were discussed in detail warranting prompt ER evaluation. History and Record Review External record(s) reviewed: prior outpatient record. Differential Diagnoses - De Quervain's tenosynovitis is more likely for the following reason(s): suggested by HANDP - Fracture is less likely for the following reason(s): no evidence on imaging Management I performed an independent interpretation of the following:imaging Imaging: My interpretation is No fracture or dislocation Disposition The patient was discharged. OTC Medications were advised: Continue Motrin as Procedures Africa Caba PA 02/21/2025 10:26 AM Addendum What is de Quervain tendinopathy? This is a condition that causes pain in the thumb and wrist. It is caused by a problem with a tendon. Tendons are strong bands of tissue that connect muscles to bones. de Quervain tendinopathy is sometimes called de Quervain tenosynovitis. de Quervain tendinopathy involves tendons that connect the forearm muscles to the thumb. These tendons and the covering around them get inflamed. This causes symptoms. Most often, de Quervain tendinopathy happens when people use their wrist and thumb too much in certain ways. This includes gripping or grabbing objects (like a tool, golf club, or tennis racket) over and over. But, it can also happen to people for no obvious reason. What are the symptoms of de Quervain tendinopathy? Symptoms include: ?Pain in the wrist or thumb ?Trouble gripping objects ?Swelling in the wrist Will I need tests? Probably not. Y (more content not included)... Normal [facility] XR HAND 3V PA/LAT/OBL LTon 0 02-21-2025 XR HAND 3V PA/LAT/OBL LT * * *Final Report* * * DATE OF EXAM: Feb 21 2025 10:54AM WOX [id number] - XR HAND 3V PA/LAT/OBL LT / PROCEDURE REASON: Pain of left thumb * * * * Physician Interpretation * * * * EXAMINATION: XR HAND 3V PA/LAT/OBL LT TECHNOLOGIST PROVIDED HISTORY: Pt. states Lt thumb/hand pain that radiates into wrist. No specific injury. CLINICAL INFORMATION: 54 years old Female with Pain of left thumb TECHNIQUE: XR HAND 3V PA/LAT/OBL LT Laterality: LEFT Number of different views (projections): 3 COMPARISON: None RESULT: No acute fracture. Joint spaces are maintained. Bony mineralization is normal. No erosions. IMPRESSION: No acute osseous abnormality. Primary Therapist: SARAHI Transcribe Date/Time: Feb 21 2025 11:46A Dictated by : ANGELA MACIAS DO This examination was interpreted and the report reviewed and electronically signed by: ANGELA MACIAS DO on Feb 21 2025 11:47AM EST [id number] Normal [facility] XR Hand - left PA and Latera l and Obliqueon 02-21-2025 IMPRESSION: No acute osseous abnormality. Primary Therapist: SARAHI Transcribe Date/Time: Feb 21 2025 11:46A Dictated by : ANGELA MACIAS DO This examination was interpreted and the report reviewed and electronically signed by: ANGELA MACIAS DO on Feb 21 2025 11:47AM [facility] DIVISION OF RADIOLOGY * * *Final Report* * * DATE OF EXAM: Feb 21 2025 10:54AM WOX [id number] - XR HAND 3V PA/LAT/OBL LT / PROCEDURE REASON: Pain of left thumb * * * * Physician Interpretation * * * * EXAMINATION: XR HAND 3V PA/LAT/OBL LT TECHNOLOGIST PROVIDED HISTORY: Pt. states Lt thumb/hand pain that radiates into wrist. No specific injury. CLINICAL INFORMATION: 54 years old Female with Pain of left thumb TECHNIQUE: XR HAND 3V PA/LAT/OBL LT Laterality: LEFT Number of different views (projections): 3 COMPARISON: None RESULT: No acute fracture. Joint spaces are maintained. Bony mineralization is normal. No erosions. DIVISION OF RADIOLOGY Provider, Enrike Michel [facility] - 02/21/2025 * * *Final Report* * * DATE OF EXAM: Feb 21 2025 10:54AM WOX 5345 - XR HAND 3V PA/LAT/OBL LT / PROCEDURE REASON: Pain of left thumb * * * * Physician Interpretation * * * * EXAMINATION: XR HAND 3V PA/LAT/OBL LT TECHNOLOGIST PROVIDED HISTORY: Pt. states Lt thumb/hand pain that radiates into wrist. No specific injury. CLINICAL INFORMATION: 54 years old Female with Pain of left thumb TECHNIQUE: XR HAND 3V PA/LAT/OBL LT Laterality: LEFT Number of different views (projections): 3 COMPARISON: None RESULT: No acute fracture. Joint spaces are maintained. Bony mineralization is normal. No erosions. IMPRESSION IMPRESSION: No acute osseous abnormality. Primary Therapist: PSCLe Transcribe Date/Time: Feb 21 2025 11:46A Dictated by : ANGELA MACIAS DO This examination was interpreted and the report reviewed and electronically signed by: ANGELA MACIAS DO on Feb 21 2025 11:47AM [facility] Radiology Study observation (narrative) [facility] XR Hand - left PA and Latera l and ObliqueOrdered By: Ccf Provider on 02-21-2025 [facility] Susi 02-14-2025 CNPN Telephone (INTMWS) ELSY DINERO ([id number]) 1970 F Date Time Provider Department 02/14/25 ELVIN DIAZ INTMWS During your visit today, we recorded the following information about you: Becky Andre 02/14/2025 11:40 AM Signed Patient is requesting to have orders and any additional necessary orders submitted into chart. Patient is scheduled for upcoming wellness exam with PCP on 04/08/25. Elvin Diaz MD 02/14/2025 12:55 PM Signed Fasting labs for latter March. Allergies As of Date: 02/14/2025 Noted Allergy Reaction GABAPENTIN 12/26/2022 1 - Mental Status Change PREDNISONE 05/30/2006 1 - Mental Status Change Comments: FEELS LIKE I'M GOING NUTS CATS 12/27/2004 4 - Hives CIPROFLOXACIN 01/29/2011 11 - Vomiting Comments: States can take if she eats with it. DOGS 12/27/2004 4 - Hives GRASS POLLEN 12/27/2004 5 - Intolerance NIACIN 08/31/2005 2 - Rash 11 - Vomiting POLLEN 12/27/2004 4 - Hives TREES 12/27/2004 5 - Intolerance Date Reviewed: 12/24/2024 Reviewed by: Myles Luciano RN - Fully Assessed Reason for Visit: Lab Orders [1688] Primary Visit Diagnosis:Pure hypercholesterolemia [E78.00] Other Visit Diagnosis:History of DVT (deep vein thrombosis) [Z86.718] Order(s):COMPLETE BLOOD COUNT [SQCBC] Order #: [id number] FUTURE COMPREHENSIVE METABOLIC PANEL [SQCMP] Order #: [id number] FUTURE LIPID PANEL, FASTING [SQLIPB] Order #: [id number] FUTURE Prescriptions as of 02/14/2025 - spironolactone (ALDACTONE) 50 mg tablet Take 1 tablet by mouth two times a day. - methocarbamol (ROBAXIN) 750 mg tablet Take 1 tablet by mouth three times a day as needed. - lactobacillus rhamnosus (CULTURELLE) 10 billion cell capsule Take 1 capsule by mouth once daily. - ibuprofen (MOTRIN ORAL) Take 600 mg by mouth three times a day. - albuterol HFA (PROVENTIL HFA, VENTOLIN HFA) 90 mcg/actuation inhaler Inhale 2 Puffs as instructed every 4 hours as needed for wheezing/shortness of breath. - docusate sodium (COLACE) 100 mg capsule Take 1 capsule by mouth two times a day. - sennosides (SENNACON ORAL) Take 1 tablet by mouth once daily. - triamcinolone acetonide (NASACORT AQ NASAL) Use 1 [place] in the nose as needed (allergies). - fexofenadine (STANLEY) 180 mg tablet Take 180 mg by mouth once daily. - famotidine (PEPCID) 20 mg tablet Take 20 mg by mouth two times a day. Problem List As Of Date 02/14/2025 Noted Resolved Other acne [L70.8] 04/08/2005 09/16/2019 Other specified endocrine disorders [E34.8] 04/08/2005 09/16/2019 Cough [R05.9] 05/30/2006 09/16/2019 Allergy-induced asthma, mild intermittent, unco* 08/25/2023 Tobacco abuse [Z72.0] 04/11/2007 Duodenitis [K29.80] 09/14/2011 06/23/2021 Acute gastritis without mention of hemorrhage [*09/14/2011 06/23/2021 Neurodermatitis [L28.0] 04/22/2013 06/23/2021 Eczematous dermatitis [L30.9] 04/22/2013 06/23/2021 Pyoderma, unspecified [L08.0] 04/22/2013 09/16/2019 Impetigo [L01.00] 04/22/2013 09/16/2019 Pruritus [L29.9] 04/22/2013 09/16/2019 Excoriation [T14.8XXA] 04/22/2013 09/16/2019 Prurigo papule [L28.2] 04/22/2013 03/01/2022 Lichenification and lichen simplex chronicus [L*04/22/2013 06/23/2021 Xerosis cutis [L85.3] 04/22/2013 09/16/2019 Spinal stenosis, lumbar region with neurogenic *03/27/2015 Low back pain [M54.50] 09/14/2015 05/17/2016 Chronic pain [G89.29] 09/14/2015 05/17/2016 Facet arthropathy, lumbar [M47.816] 05/17/2016 03/01/2022 Chronic midline low back pain without sciatica *05/17/2016 03/01/2022 Acid reflux [K21.9] Hirsutism [L68.0] 09/16/2019 Elevated dehydroepiandrosterone (DHEA) level [R*09/16/2019 03/01/2022 Pure hypercholesterolemia [E78.00] 06/28/2021 Former smoker [Z87.891] 12/13/2021 08/25/2023 Post-operative state [Z98.890] 01/07/2022 03/01/2022 Thrombosis, iliac, 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] 02/15/2022 03/01/2022 Lumbar stenosis with neurogenic claudication [M*02/23/2022 Acute postoperative pain [G89.18] 02/23/2022 05/19/2022 Hypomagnesemia [E83.42] 02/24/2022 03/01/2022 Status post lumbar spinal fusion [Z98.1] 02/24/2022 Poor compliance [Z91.199] 02/28/2022 08/25/2023 Orthopedic aftercare [Z47.89] 03/03/2022 08/25/2023 Suicidal ideation [R45.851] 03/03/2022 07/04/2022 Generalized weakness [R53.1] 03/05/2022 08/25/2023 History of DVT (deep vein thrombosis) [Z86.718] 03/05/2022 S/P hardware removal [Z98.890] 05/17/2022 08/25/2023 Asthma with chronic obstructive pulmonary disea*05/17/2022 PAD (peripheral artery disease) (HCC) [I73.9] 02/09/2023 Encounter Status:Closed by ROSS HILL on 02/14/[address] [facility] HISTORY PHYSICALon HISTORY PHYSICAL HNO ID: [id number] Author: FUAD RUTLEDGE MD Service: Pain Management Author Type: Physician Type: H&P Filed: 12/24/2024 13:20 Note Text: HISTORY AND PHYSICAL EXAMINATION PATIENT NAME: Elsy Dinero DATE of SERVICE: 12/24/2024 Elsy Dinero is here for the pain mangement procedure. The patients presents with persistent pain complaints. Elsy Dinero denies any interval changes or new pain complaints or focal neurologic deficits. PAST MEDICAL HISTORY Diagnosis Date Acid reflux Acute gastritis without mention of hemorrhage 09/14/2011 Allergy-induced asthma, mild intermittent, uncomplicated (HCC) Asthma (HCC) Chronic midline low back pain without sciatica 05/17/2016 Duodenitis 09/14/2011 Duodenitis without mention of hemorrhage Facet arthropathy, lumbar 05/17/2016 Hemorrhage of gastrointestinal tract, unspecified Hirsutism 09/16/2019 Pure hypercholesterolemia 06/28/2021 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 Spinal stenosis, lumbar region, without neurogenic claudication 03/27/2015 Suicidal ideation 03/03/2022 Tobacco use disorder 04/11/2007 Vascular occlusion 01/07/2022 Intraoperative L common iliac artery occlusion PAST SURGICAL HISTORY Procedure Laterality Date ARTHROSCOPIC REMOVAL HARDWARE DEEP 05/17/2022 removal of iliac screws ESOPHAGOGASTRODUODENOSCOPY TRANSORAL DIAGNOSTIC 09/14/2011 EGD ILIAC REVASC ADD-ON Left 01/07/2022 L Common Iliac Artery endarterectomy LUMBAR SPINE FUSION COMBINED 02/23/2022 L2 to ilium instrumented fusion, L3, 4 and 5 laminectomy, L2-3, 3-4 and L5-S1 transforaminal lumbar interbody fusion. LUMBAR SPINE FUSION,ANTER APPRCH 01/07/2022 ALIF L4-L5. ORTHOPEDICS SURGERY HX 08/23/2023 L2-S1 implant removal AND change PAST SURGICAL HISTORY OF 04/29/2012 excision of back lump SIGMOIDOSCOPY FLX DX W/COLLJ SPEC BR/WA IF PFRMD 09/14/2011 Sigmoidoscopy, flexible Social History Tobacco Use Smoking status: Every Day Current packs/day: 1.00 Average packs/day: 2.0 packs/day for 39.3 years (77.3 ttl pk-yrs) Types: Cigarettes Start date: 07/10/1985 Last attempt to quit: 07/10/2023 Passive exposure: Current Smokeless tobacco: Never Tobacco comments: started age 13 Vaping Use Vaping status: Never Used Substance Use Topics Alcohol use: Not Currently Comment: recovering since 2017 Drug use: Not Currently Comment: experimented in her 20's FAMILY HISTORY Problem Relation Age of Onset GI Mother colon polyps Cancer Mother Lung/Uterine/ cervical Allergies Mother Osteoporosis Mother GI Father colon polyps Diabetes Father Coronary Artery Disease Father Stents Heart Father age 85 Dementia Father No Known Problems Sister No Known Problems Sister Diabetes Brother Kidney Disease Brother dialysis Heart Failure Brother Breast Cancer Maternal Grandmother Allergies Maternal Grandfather Breast Cancer Paternal Grandmother Allergies Paternal Grandmother Diabetes Paternal Grandfather Allergies Daughter Heart Daughter PDA closure Allergies Daughter Anesthesia Problems No Family History Anesthesia No Family History ALLERGIES Allergen Reactions Gabapentin Mental Status Change Prednisone Mental Status Change FEELS LIKE I'M GOING NUTS Cats Hives Ciprofloxacin Vomiting States can take if she eats with it. Dogs Hives Grass Pollen Intolerance Niacin Rash, Vomiting Pollen Hives Trees Intolerance No current facility-administered medications for this encounter. Physical Exam: Performed in conjunction with observation. The patient is alert and oriented x3. The patient is in no acute distress. Neck: Supple. The range of motion is intact. Lungs: clear CVR: RRR. Extremities: no reported edema or erythema. Examination indicates no changes Impression: Chronic SI joint pain Plan: The informed consent has been obtained. The plan is to proceed with the procedure as planned. SIGNATURE: Fuad Rutledge MD DATE: December 24, 2024 TIME: 1:20 PM [facility] OPERATIVE NOon 12-24-2024 OPERATIVE NO HNO ID: [id number] Author: FUAD RUTLEDGE MD Service: Pain Management Author Type: Physician Type: Operative Report Filed: 12/24/2024 13:40 Note Text: PATIENT NAME: Elsy Dinero SERVICE DATE: 12/24/2024 PROCEDURE NOTE PREOPERATIVE DIAGNOSIS(ES) SI joint pain. SI joint inflammation SI joint dysfunction POSTOPERATIVE DIAGNOSIS(ES): SAME OPERATION: Bilateral SacroiliacJoint Injection under fluoroscopy. Livestock Farm Workers(s): None, I performed the entire procedure. ANESTHESIA: Local INDICATIONS: Elsy Dinero presents for bilateral SI joint injection. The pain is persistent over the lower back region. The patient denies any changes or new pain complaints since the last encounter. The plan is to proceed with Bilateral SI joint injection. The risks and benefits were discussed with the patient in detail. The patient understands and wishes to proceed. OPERATIVE PROCEDURE: The patient was brought to the operating room. The patient was placed in the prone position with pressure points protected. Continuous hemodynamic monitoring was initiated including blood pressure, EKG, and pulse oximetry. Supplemental oxygen per nasal canula was started. The lumbosacral area was prepped and draped into a sterile field. The inferior pole of the each sacroiliac joint was identified by cephalo-oblique fluoroscopy. The skin overlying both sacroiliac joint was anesthetized using 3 cc of lidocaine 1%. A 22 gauge, 3 1/2 inch spinal needle was slowly advanced through the sacroiliac joint capsule under fluoroscopic guidance. The needle position was confirmed using oblique, AP and lateral fluoroscopic imaging. This was repeated on the contralateral side using the same technique. Negative aspiration was confirmed. 0.5 cc of Omnipaque 300 was injected confirming intra-articular contrast spread in both joints. A combination of 2.5 cc of Bupivacaine 0.25% and 20 mg kenalog was easily injected into each of the joints. No difficulty was encountered. The needles were removed intact and bleeding was nil. The patient tolerated the procedure well. A sterile dressing was applied. The patient was taken to the recovery room in stable condition. EBL: nil Start time: 1:29 PM End time: 1:36 PM I was present the entire time and personally performed the procedure. SIGNATURE: Fuad Rutledge MD DATE: December 24, 2024 TIME: 1:40 PM [facility] 12-19-2024 [facility] Telephone (LENNIE) ELSY DINERO ([id number]) 1970 F Date Time Provider Department 12/19/24 FUAD RUTLEDGE During your visit today, we recorded the following information about you: Dianna Branham RN 12/19/2024 2:28 PM Signed Patient contacted Pain Management with voicemail on 12/19/2024 at 1357 inquiring if she is able to take anything for pain relief leading up to her injection procedure on 12/24/2024. Patient requesting return phone call at [phone]. Procedure Instructions sent via [employer] on 12/02/2024, which were reviewed by patient. Informed patient via telephone that she is able to take Tylenol and her prescribed Robaxin. Advised patient that she can take any medication NOT listed on Procedure Instructions. Directed patient to referring provider (Amps) for additional prescription requests. Patient verbalized understanding and voiced no additional questions/concerns. Allergies As of Date: 12/19/2024 Noted Allergy Reaction GABAPENTIN 12/26/2022 1 - Mental Status Change PREDNISONE 05/30/2006 1 - Mental Status Change Comments: FEELS LIKE I'M GOING NUTS CATS 12/27/2004 4 - Hives CIPROFLOXACIN 01/29/2011 11 - Vomiting Comments: States can take if she eats with it. DOGS 12/27/2004 4 - Hives GRASS POLLEN 12/27/2004 5 - Intolerance NIACIN 08/31/2005 2 - Rash 11 - Vomiting POLLEN 12/27/2004 4 - Hives TREES 12/27/2004 5 - Intolerance Date Reviewed: 12/02/2024 Reviewed by: Isaac Field MA - Fully Assessed Reason for Visit: Patient Question [8965] Cmt: Upcoming Injection Procedure Prescriptions as of 12/19/2024 - methocarbamol (ROBAXIN) 750 mg tablet Take 1 tablet by mouth every 12 hours as needed. - spironolactone (ALDACTONE) 50 mg tablet Take 1 tablet by mouth two times a day. - methocarbamol (ROBAXIN) 750 mg tablet Take 1 tablet by mouth three times a day as needed. - lactobacillus rhamnosus (CULTURELLE) 10 billion cell capsule Take 1 capsule by mouth once daily. - ibuprofen (MOTRIN ORAL) Take 600 mg by mouth three times a day. - albuterol HFA (PROVENTIL HFA, VENTOLIN HFA) 90 mcg/actuation inhaler Inhale 2 Puffs as instructed every 4 hours as needed for wheezing/shortness of breath. - docusate sodium (COLACE) 100 mg capsule Take 1 capsule by mouth two times a day. - sennosides (SENNACON ORAL) Take 1 tablet by mouth once daily. - triamcinolone acetonide (NASACORT AQ NASAL) Use 1 [place] in the nose as needed (allergies). - fexofenadine (STANLEY) 180 mg tablet Take 180 mg by mouth once daily. - famotidine (PEPCID) 20 mg tablet Take 20 mg by mouth two times a day. Problem List As Of Date 12/19/2024 Noted Resolved Other acne [L70.8] 04/08/2005 09/16/2019 Other specified endocrine disorders [E34.8] 04/08/2005 09/16/2019 Cough [R05.9] 05/30/2006 09/16/2019 Allergy-induced asthma, mild intermittent, unco* 08/25/2023 Tobacco abuse [Z72.0] 04/11/2007 Duodenitis [K29.80] 09/14/2011 06/23/2021 Acute gastritis without mention of hemorrhage [*09/14/2011 06/23/2021 Neurodermatitis [L28.0] 04/22/2013 06/23/2021 Eczematous dermatitis [L30.9] 04/22/2013 06/23/2021 Pyoderma, unspecified [L08.0] 04/22/2013 09/16/2019 Impetigo [L01.00] 04/22/2013 09/16/2019 Pruritus [L29.9] 04/22/2013 09/16/2019 Excoriation [T14.8XXA] 04/22/2013 09/16/2019 Prurigo papule [L28.2] 04/22/2013 03/01/2022 Lichenification and lichen simplex chronicus [L*04/22/2013 06/23/2021 Xerosis cutis [L85.3] 04/22/2013 09/16/2019 Spinal stenosis, lumbar region with neurogenic *03/27/2015 Low back pain [M54.50] 09/14/2015 05/17/2016 Chronic pain [G89.29] 09/14/2015 05/17/2016 Facet arthropathy, lumbar [M47.816] 05/17/2016 03/01/2022 Chronic midline low back pain without sciatica *05/17/2016 03/01/2022 Acid reflux [K21.9] Hirsutism [L68.0] 09/16/2019 Elevated dehydroepiandrosterone (DHEA) level [R*09/16/2019 03/01/2022 Pure hypercholesterolemia [E78.00] 06/28/2021 Former smoker [Z87.891] 12/13/2021 08/25/2023 Post-operative state [Z98.890] 01/07/2022 03/01/2022 Thrombosis, iliac, 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] 02/15/2022 03/01/2022 Lumbar stenosis with neurogenic claudication [M*02/23/2022 Acute postoperative pain [G89.18] 02/23/2022 05/19/2022 Hypomagnesemia [E83.42] 02/24/2022 03/01/2022 Status post lumbar spinal fusion [Z98.1] 02/24/2022 Poor compliance [Z91.199] 02/28/2022 08/25/2023 Orthopedic aftercare [Z47.89] 03/03/2022 08/25/2023 Suicidal ideation [R45.851] 03/03/2022 07/04/2022 Generalized weakness [R53.1] 03/05/2022 08/25/2023 History of DVT (deep vein thrombosis) [Z86.718] 03/05/2022 S/P hardware removal [Z98.890] 05/17/2022 08/25/2023 Asthma with chronic obstructive pulmonary disea*05/17/2022 PAD (peripheral artery disease) (HCC) [I73.9] 02/09/2023 Encounter Status:Closed by DIANNA BRANHAM on 12/19/24 [facility] 12-02-2024 CNOV Office Visit (SSINDP ) ELSY DINERO ([id number]) 1970 F Date Time Provider Department 12/02/24 9:45 AM AMBROSE BIRCH During your visit today, we recorded the following information about you: Weight 73 kg Ambrose Birch MD 12/02/2024 5:41 PM Signed SPINE SURGERY ESTABLISHED PATIENT DATE OF SERVICE: 12/02/2024 DATE OF LAST VISIT: 09/02/2024 SURGERY DATE: 08/23/2023 Subjective HPI:Elsy Dinero is a 54 year old female presenting alone. At [facility], the patient reported that, while she is building her strength in her back, she has reported experiencing frequent spasms, feeling the sensation radiate into her legs and feet. She has finished her treatment at physical therapy, and while she is able to lift and do more with her strength renewed, she is still not completely better. She was previously taking gabapentin for her back pain, but has since stopped. Today, the patient reports that she is feeling about the same as before. She still feels pain radiating from her lower back and down to her legs, as well as experiencing spasms in her legs, radiating down to her feet. While she does feel better after having finished physical therapy, she is reporting continued difficulty walking, stating she is dependant on her walker as of now. She reports pain in both of her hips, primarily in her right hip. She has reported that she feels pain when sitting down for longer periods, needing to stand up and stretch to relieve this pain. She is unable to drive long distances as a result of this. She has had PAIN EVALUATION 12/02/2024 0939 Pain Level: 5 Pain Location: Back Description: Sharp Duration Amount of Time: 3 Duration Units: Years Frequency: Continuous Intervention/Comfort measure: Medication;Reposition;Relaxat ion;Cold;Heat Pain Radiation: Low back, bilateral hips and legs Aggravating Factors: Standing, Walking, Sitting Alleviating Factors: Exercising/activity AMBULATORY STATUS: Impaired Community Distances ANTIPLATELET OR ANTICOAGULATION STATUS: No PREVIOUS CONSERVATIVE TREATMENTS: Ibuprofen, Robaxin REVIEW OF SYSTEMS: GENERAL: No weight loss or malaise MUSCULOSKELETAL: SEE HPI NEURO: No history of syncope, paralysis, seizures or tremors Major Risk Factors Obesity normal BMI: 26.99 kg/m2 High: BMI > 40 Moderate: BMI 30-40 Normal: BMI < 30 Diabetes normal Last HbA1C: 5.4 - 04/21/2015 High: A1C > 8 Moderate: A1C 7-8 Normal: A1C < 7 Hx of DVT / PE normal High: dx of DVT / PE Normal: no dx of DVT / PE Smoking High Risk Last Status: Every Day High: Current smoker Normal: Non smoker Narcotics Use normal High:NarxCare >=300 Moderate: 100-299 Normal: 0-99 Depression normal High: PHQ-9 >14 Moderate: PHQ-9 5-14 Normal: PHQ-9 < 5 Data from [facility] Epic on prior therapies: Last PT session: No date on file in last 365 days Last Epidural Steroid Injection: No epidural injection on file for last 365 days Last Spine Surgery: Date - 08/23/2023 with Ambrose Birch. Procedure: - ARTHRODESIS POSTERIOR INTERBODY 1 NTRSPC LUMBAR, POSTERIOR NON-SEGMENTAL INSTRUMENTATION, INSJ BIOMCHN DEV INTERVERTEBRAL DSC SPC W/ARTHRD, VIEYRA FACETECTOMYANDFORAMOT 1 VRT SGM EA ADDL SGM PAST MEDICAL HISTORY Diagnosis Date Acid reflux Acute gastritis without mention of hemorrhage 09/14/2011 Allergy-induced asthma, mild intermittent, uncomplicated (HCC) Asthma (HCC) Chronic midline low back pain without sciatica 05/17/2016 Duodenitis 09/14/2011 Duodenitis without mention of hemorrhage Facet arthropathy, lumbar 05/17/2016 Hemorrhage of gastrointestinal tract, unspecified Hirsutism 09/16/2019 Pure hypercholesterolemia 06/28/2021 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 Spinal stenosis, lumbar region, without neurogenic claudication 03/27/2015 Suicidal ideation 03/03/2022 Tobacco use disorder 04/11/2007 Vascular occlusion 01/07/2022 Intraoperative L common iliac artery occlusion PAST SURGICAL HISTORY Procedure Laterality Date ARTHROSCOPIC REMOVAL HARDWARE DEEP 05/17/2022 removal of iliac screws ESOPHAGOGASTRODUODENOSCOPY TRANSORAL DIAGNOSTIC 09/14/2011 EGD ILIAC REVASC ADD-ON Left 01/07/2022 L Common Iliac Artery endarterectomy LUMBAR SPINE FUSION COMBINED 02/23/2022 L2 to ilium instrumented fusion, L3, 4 and 5 laminectomy, L2-3, 3-4 and L5-S1 transforaminal lumbar interbody fusion. LUMBAR SPINE FUSION,ANTER APPRCH 01/07/2022 ALIF L4-L5. ORTHOPEDICS SURGERY HX 08/23/2023 L2-S1 implant removal AND change PAST SURGICAL HISTORY OF 04/29/2012 excision of back lump SIGMOIDOSCOPY FLX DX W/COLLJ SPEC BR/WA IF PFRMD 09/14/2011 Sigmoidoscopy, flexible Current Outpatient Medications on File Prior to Visit Medication Sig spironolactone (ALDACTONE) 50 mg tablet Take 1 tablet by mouth two times a day. methocarbamol (ROBAXIN) 750 mg tablet Take 1 tablet by mouth three times a day as (more content not included)... Normal [facility] CNPNon 12-02-2024 CNPN Telephone (PNMDNA) ELSY DINERO ([id number]) 1970 F Date Time Provider Department 12/02/24 FUAD RUTLEDGE During your visit today, we recorded the following information about you: Dianna Branham, RN 12/02/2024 11:47 AM Signed Patient contacted Pain Management with voicemail on 12/02/2024 at 1037 requesting to schedule an injection procedure with Dr. Rutledge. Procedure: Bilateral SI Joint D-P-A-/Diuretic/Amps Referral Cloud[employer] message sent. Allergies As of Date: 12/02/2024 Noted Allergy Reaction GABAPENTIN 12/26/2022 1 - Mental Status Change PREDNISONE 05/30/2006 1 - Mental Status Change Comments: FEELS LIKE I'M GOING NUTS CATS 12/27/2004 4 - Hives CIPROFLOXACIN 01/29/2011 11 - Vomiting Comments: States can take if she eats with it. DOGS 12/27/2004 4 - Hives GRASS POLLEN 12/27/2004 5 - Intolerance NIACIN 08/31/2005 2 - Rash 11 - Vomiting POLLEN 12/27/2004 4 - Hives TREES 12/27/2004 5 - Intolerance Date Reviewed: 12/02/2024 Reviewed by: Isaac Field MA - Fully Assessed Reason for Visit: Schedule Injection [5673] Cmt: Dr. Birch Referral Prescriptions as of 12/02/2024 - methocarbamol (ROBAXIN) 750 mg tablet Take 1 tablet by mouth every 12 hours as needed. - spironolactone (ALDACTONE) 50 mg tablet Take 1 tablet by mouth two times a day. - methocarbamol (ROBAXIN) 750 mg tablet Take 1 tablet by mouth three times a day as needed. - lactobacillus rhamnosus (CULTURELLE) 10 billion cell capsule Take 1 capsule by mouth once daily. - ibuprofen (MOTRIN ORAL) Take 600 mg by mouth three times a day. - albuterol HFA (PROVENTIL HFA, VENTOLIN HFA) 90 mcg/actuation inhaler Inhale 2 Puffs as instructed every 4 hours as needed for wheezing/shortness of breath. - docusate sodium (COLACE) 100 mg capsule Take 1 capsule by mouth two times a day. - sennosides (SENNACON ORAL) Take 1 tablet by mouth once daily. - triamcinolone acetonide (NASACORT AQ NASAL) Use 1 [place] in the nose as needed (allergies). - fexofenadine (STANLEY) 180 mg tablet Take 180 mg by mouth once daily. - famotidine (PEPCID) 20 mg tablet Take 20 mg by mouth two times a day. Problem List As Of Date 12/02/2024 Noted Resolved Other acne [L70.8] 04/08/2005 09/16/2019 Other specified endocrine disorders [E34.8] 04/08/2005 09/16/2019 Cough [R05.9] 05/30/2006 09/16/2019 Allergy-induced asthma, mild intermittent, unco* 08/25/2023 Tobacco abuse [Z72.0] 04/11/2007 Duodenitis [K29.80] 09/14/2011 06/23/2021 Acute gastritis without mention of hemorrhage [*09/14/2011 06/23/2021 Neurodermatitis [L28.0] 04/22/2013 06/23/2021 Eczematous dermatitis [L30.9] 04/22/2013 06/23/2021 Pyoderma, unspecified [L08.0] 04/22/2013 09/16/2019 Impetigo [L01.00] 04/22/2013 09/16/2019 Pruritus [L29.9] 04/22/2013 09/16/2019 Excoriation [T14.8XXA] 04/22/2013 09/16/2019 Prurigo papule [L28.2] 04/22/2013 03/01/2022 Lichenification and lichen simplex chronicus [L*04/22/2013 06/23/2021 Xerosis cutis [L85.3] 04/22/2013 09/16/2019 Spinal stenosis, lumbar region with neurogenic *03/27/2015 Low back pain [M54.50] 09/14/2015 05/17/2016 Chronic pain [G89.29] 09/14/2015 05/17/2016 Facet arthropathy, lumbar [M47.816] 05/17/2016 03/01/2022 Chronic midline low back pain without sciatica *05/17/2016 03/01/2022 Acid reflux [K21.9] Hirsutism [L68.0] 09/16/2019 Elevated dehydroepiandrosterone (DHEA) level [R*09/16/2019 03/01/2022 Pure hypercholesterolemia [E78.00] 06/28/2021 Former smoker [Z87.891] 12/13/2021 08/25/2023 Post-operative state [Z98.890] 01/07/2022 03/01/2022 Thrombosis, iliac, 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] 02/15/2022 03/01/2022 Lumbar stenosis with neurogenic claudication [M*02/23/2022 Acute postoperative pain [G89.18] 02/23/2022 05/19/2022 Hypomagnesemia [E83.42] 02/24/2022 03/01/2022 Status post lumbar spinal fusion [Z98.1] 02/24/2022 Poor compliance [Z91.199] 02/28/2022 08/25/2023 Orthopedic aftercare [Z47.89] 03/03/2022 08/25/2023 Suicidal ideation [R45.851] 03/03/2022 07/04/2022 Generalized weakness [R53.1] 03/05/2022 08/25/2023 History of DVT (deep vein thrombosis) [Z86.718] 03/05/2022 S/P hardware removal [Z98.890] 05/17/2022 08/25/2023 Asthma with chronic obstructive pulmonary disea*05/17/2022 PAD (peripheral artery disease) ([facility]) [I73.9] 02/09/2023 Encounter Status:Closed by DIANNA BRANHAM on 12/02/[address] [facility] CT LUMBAR SPINE WO IVCONon 0 10-25-2024 CT LUMBAR SPINE WO IVCON * * *Final Report* * * DATE OF EXAM: Oct 25 2024 1:46PM [facility] 0508 - CT LUMBAR SPINE WO IVCON / PROCEDURE REASON: Spinal stenosis of lumbar region with neurogenic claudication * * * * Physician Interpretation * * * * EXAMINATION: CT LUMBAR SPINE WO IVCON CLINICAL HISTORY: Spinal stenosis of lumbar region with neurogenic claudication. 08/23/2023 -Redo right L4 foraminotomy, redo posterolateral L2-3 instrumented fusion, and redo L5-S1 transforaminal lumbar interbody fusion. TECHNIQUE: Spiral, high resolution axial unenhanced images were obtained from the thoracolumbar junction to the sacrum with sagittal and coronal planar reconstructions. MQ: CTLSPWO_3 CT Radiation dose: Integrated Dose-Length Product (DLP) for this visit = 1241 mGy*cm. CT Dose Reduction Employed: Automated exposure control(AEC) and iterative recon COMPARISON: 02/27/2023 RESULT: Counting reference: Lumbosacral junction. For the purposes of this report, L4-5 is considered the level of the iliac crest and assume there are 5 lumbar-type vertebrae. Anatomic variant: None. Special Projects Coordinator (topogram) images: No additional findings. Alignment: Alignment is anatomic. Lumbar lordosis preserved. Minimal levoscoliotic curve. Unchanged mild grade 1 anterolisthesis of L4 on L5 and to a lesser degree L5 on S1. Bone marrow /fracture: No evidence of a lytic or blastic process in the visualized spine. Redemonstrated mild chronic compression deformity of L1 superior endplate, unchanged. Paraspinal soft tissues: The paraspinal soft tissues planes are maintained. Foci of air within the gallbladder lumen likely from gallstones. Postop: Patient is status post lumbosacral fusion from L2-S1 with pedicular screws and fixation rods. Interbody spacers are present at L2-S1 sequential levels. Patient is status post laminectomies/facetectomies at L2-L5. Minimal lucencies are seen surrounding the pedicular screws at bilateral L2 and left S1 screws, unchanged at L2 but near the left S1 screw. No periprosthetic fracture or gross malalignment. Lower thoracic spine: The visualized lower thoracic bony canal and foramina are patent. L1-L2: The canal and foramina are patent. L2-S1 canal/foramina:: Limited by streaking from orthopedic hardware. Status post posterior decompression. Canal is decompressed. Mild bilateral foraminal stenosis at L5-S1 as well as moderate right foraminal stenosis at L4-5. No significant change. Sacrum and iliac wings: The visualized sacrum and iliac wings are within normal limits. Ghost tracks within the bilateral SI joints. IMPRESSION: Postoperative changes of posterior spinal fusion are again noted. Hardware appears intact. Bony ankylosis at L2-5 vertebral bodies. No fracture. Minimal lucencies are seen involving both L2 pedicle screws, unchanged. Lucency surrounding the left pedicle screw at S1 level appears to be new since prior examination. Moderate right foraminal stenosis at L4-5 and mild bilateral foraminal narrowing at L5-S1, unchanged. Anatomic Lumbar Variant: None. L4-5 is considered the level of the iliac crest and assume there are 5 lumbar-type vertebrae. Primary Therapist: iFLYER Transcribe Date/Time: Oct 25 2024 1:59P Dictated by : KELSI DUNNE DO This examination was interpreted and the report reviewed and electronically signed by: ALEX TOLENTINO MD on Oct 25 2024 2:51PM EST [id number] Normal [facility] CT Lumbar spine WO contrasto n 10-25-2024 IMPRESSION: Postoperative changes of posterior spinal fusion are again noted. Hardware appears intact. Bony ankylosis at L2-5 vertebral bodies. No fracture. Minimal lucencies are seen involving both L2 pedicle screws, unchanged. Lucency surrounding the left pedicle screw at S1 level appears to be new since prior examination. Moderate right foraminal stenosis at L4-5 and mild bilateral foraminal narrowing at L5-S1, unchanged. Anatomic Lumbar Variant: None. L4-5 is considered the level of the iliac crest and assume there are 5 lumbar-type vertebrae. Primary Therapist: iFLYER Transcribe Date/Time: Oct 25 2024 1:59P Dictated by : KELSI DUNNE DO This examination was interpreted and the report reviewed and electronically signed by: ALEX TOLENTINO MD on Oct 25 2024 2:51PM [facility] DIVISION OF RADIOLOGY * * *Final Report* * * DATE OF EXAM: Oct 25 2024 1:46PM [facility] 0[facility] - CT LUMBAR SPINE WO IVCON / PROCEDURE REASON: Spinal stenosis of lumbar region with neurogenic claudication * * * * Physician Interpretation * * * * EXAMINATION: CT LUMBAR SPINE WO IVCON CLINICAL HISTORY: Spinal stenosis of lumbar region with neurogenic claudication. 08/23/2023 -Redo right L4 foraminotomy, redo posterolateral L2-3 instrumented fusion, and redo L5-S1 transforaminal lumbar interbody fusion. TECHNIQUE: Spiral, high resolution axial unenhanced images were obtained from the thoracolumbar junction to the sacrum with sagittal and coronal planar reconstructions. MQ: CTLSPWO_3 CT Radiation dose: Integrated Dose-Length Product (DLP) for this visit = 1241 mGy*cm. CT Dose Reduction Employed: Automated exposure control(AEC) and iterative recon COMPARISON: 02/27/2023 RESULT: Counting reference: Lumbosacral junction. For the purposes of this report, L4-5 is considered the level of the iliac crest and assume there are 5 lumbar-type vertebrae. Anatomic variant: None. Special Projects Coordinator (topogram) images: No additional findings. Alignment: Alignment is anatomic. Lumbar lordosis preserved. Minimal levoscoliotic curve. Unchanged mild grade 1 anterolisthesis of L4 on L5 and to a lesser degree L5 on S1. Bone marrow /fracture: No evidence of a lytic or blastic process in the visualized spine. Redemonstrated mild chronic compression deformity of L1 superior endplate, unchanged. Paraspinal soft tissues: The paraspinal soft tissues planes are maintained. Foci of air within the gallbladder lumen likely from gallstones. Postop: Patient is status post lumbosacral fusion from L2-S1 with pedicular screws and fixation rods. Interbody spacers are present at L2-S1 sequential levels. Patient is status post laminectomies/facetectomies at L2-L5. Minimal lucencies are seen surrounding the pedicular screws at bilateral L2 and left S1 screws, unchanged at L2 but near the left S1 screw. No periprosthetic fracture or gross malalignment. Lower thoracic spine: The visualized lower thoracic bony canal and foramina are patent. L1-L2: The canal and foramina are patent. L2-S1 canal/foramina:: Limited by streaking from orthopedic hardware. Status post posterior decompression. Canal is decompressed. Mild bilateral foraminal stenosis at L5-S1 as well as moderate right foraminal stenosis at L4-5. No significant change. Sacrum and iliac wings: The visualized sacrum and iliac wings are within normal limits. Ghost tracks within the bilateral SI joints. DIVISION OF RADIOLOGY Provider, [facility] - 10/25/2024 * * *Final Report* * * DATE OF EXAM: Oct 25 2024 1:46PM [facility] - CT LUMBAR SPINE WO IVCON / PROCEDURE REASON: Spinal stenosis of lumbar region with neurogenic claudication * * * * Physician Interpretation * * * * EXAMINATION: CT LUMBAR SPINE WO IVCON CLINICAL HISTORY: Spinal stenosis of lumbar region with neurogenic claudication. 08/23/2023 -Redo right L4 foraminotomy, redo posterolateral L2-3 instrumented fusion, and redo L5-S1 transforaminal lumbar interbody fusion. TECHNIQUE: Spiral, high resolution axial unenhanced images were obtained from the thoracolumbar junction to the sacrum with sagittal and coronal planar reconstructions. MQ: CTLSPWO_3 CT Radiation dose: Integrated Dose-Length Product (DLP) for this visit = 1241 mGy*cm. CT Dose Reduction Employed: Automated exposure control(AEC) and iterative recon COMPARISON: 02/27/2023 RESULT: Counting reference: Lumbosacral junction. For the purposes of this report, L4-5 is considered the level of the iliac crest and assume there are 5 lumbar-type vertebrae. Anatomic variant: None. Special Projects Coordinator (topogram) images: No additional findings. Alignment: Alignment is anatomic. Lumbar lordosis preserved. Minimal levoscoliotic curve. Unchanged mild grade 1 anterolisthesis of L4 on L5 and to a lesser degree L5 on S1. Bone marrow /fracture: No evidence of a lytic or blastic process in the visualized spine. Redemonstrated mild chronic compression deformity of L1 superior endplate, unchanged. Paraspinal soft tissues: The paraspinal soft tissues planes are maintained. Foci of air within the gallbladder lumen likely from gallstones. Postop: Patient is status post lumbosacral fusion from L2-S1 with pedicular screws and fixation rods. Interbody spacers are present at L2-S1 sequential levels. Patient is status post laminectomies/facetectomies at L2-L5. Minimal lucencies are seen surrounding the pedicular screws at bilateral L2 and left S1 screws, unchanged at L2 but near the left S1 screw. No periprosthetic fracture or gross malalignment. Lower thoracic spine: The visualized lower thoracic bony canal and foramina are patent. L1-L2: The canal and foramina are patent. L2-S1 canal/foramina:: Limited by streaking from orthopedic hardware. Status post posterior decompression. Canal is decompressed. Mild bilateral foraminal stenosis at L5-S1 as well as moderate right foraminal stenosis at L4-5. No significant change. Sacrum and iliac wings: The visualized sacrum and iliac wings are within normal limits. Ghost tracks within the bilateral SI joints. IMPRESSION IMPRESSION: Postoperative changes of posterior spinal fusion are again noted. Hardware appears intact. Bony ankylosis at L2-5 vertebral bodies. No fracture. Minimal lucencies are seen involving both L2 pedicle screws, unchanged. Lucency surrounding the left pedicle screw at S1 level appears to be new since prior examination. Moderate right foraminal stenosis at L4-5 and mild bilateral foraminal narrowing at L5-S1, unchanged. Anatomic Lumbar Variant: None. L4-5 is considered the level of the iliac crest and assume there are 5 lumbar-type vertebrae. Primary Therapist: PSCB Transcribe Date/Time: Oct 25 2024 1:59P Dictated by : KELSI DUNNE, DO This examination was interpreted and the report reviewed and electronically signed by: ALEX TOLENTINO MD on Oct 25 2024 2:51PM EST [facility] Radiology Study observation (narrative) [facility] CT Lumbar spine WO contrastO rdered By: Enrike Provider on 10-25-2024 [facility] Susi 10-17-2024 JESSICA Telephone (NEADFV) ELSY DINERO ([id number]) 1970 F Date Time Provider Department 10/17/24 AMBROSE BIRCHFV During your visit today, we recorded the following information about you: Stanley Deluca RN 10/17/2024 8:45 AM Signed ----- Message from Praveen Lujan sent at 10/17/2024 8:41 AM EDT ----- Regarding: RE: Confidential // Denial: PtIlene Dinero // Referral [id number] Good afternoon, This has been approved. Valid dates 09/13/2024 to 11/12/2024. Auth# [id number]. Thank you, ----- Message ----- From: Stanley Deluca RN Sent: 10/16/2024 12:17 PM EDT To: Diego Villatoro; Ambrose Birch MD; # Subject: RE: Confidential // Denial: PtIlene Garcia# Hi. Is there an update on this? Peer to peer was completed and additional information was sent on 09/13/24. Thank you. ----- Message ----- From: Praveen Chun Sent: 09/16/2024 11:39 AM EDT To: Diego Villatoro; Tamir Everett; # Subject: RE: Confidential // Denial: PtIlene Garcia# Good morning, You can call [phone] opt 2 (enter tracking# [id number]) / opt 1 to explain this to the insurance. Please let me know how you will proceed. Thank you, Praveen Lujan ----- Message ----- From: Ambrose Birch MD Sent: 09/16/2024 11:25 AM EST To: Diego Villatoro; Tamir Everett; # Subject: RE: Confidential // Denial: PtIlene Garcia# This is absurd. CT is used for many reasons other than that a patient cannot have an MRI. CT is better to assess the fusion and it is the test this patient needs. ----- Message ----- From: Praveen Chun Sent: 09/16/2024 9:37 AM EST To: Diego Villatoro; Tamir Everett; # Subject: Confidential // Denial: Pt. Elsy Hunt# Good morning, The below information is for a peer to peer and appeal for a service you have requested. Patient Information Patient Last NameRadakovic Patient First NameLori Date of Birth1970 [id number] Clinical Clearance / Financial Clearance StatusCCN Denied (Patient advised to postpone/reschedule) Clinical Clearance Notifications are supported by our paco policy and used when an immediate payer source is not available. The CCN process can allow cases to be completed while still working to obtain payer's authorization due to urgency or medical necessity. This process should not preclude us from completing the steps needed to secure authorization such us P2P and appeal as this will still allow us to receive the appropriate reimbursement. Denial Overview Denial TypePayer Clinical Guidelines Not Met Denial RationaleA person might need a(n) Lumbar Spine CT if these notes have/has been given: notes from your doctor that say why you cannot do a different test (MRI (Magnetic Resonance Imaging)). That test does not use x-rays. The information we got did not include these notes. Date of Uclmnrp8209/20/2024 Is Peer to Peer Available? (Instructions below)Yes Peer to Peer DeadlineMust be completed by: 09/19/2024 Appeal Deadline (Instructions below)60 calendars days from denial date on: 09/13/2024 Insurance Case Information Insurance NameCaresource/Evolent Patient's Insurance Case#[id number] Ordering ProviderAMBROSE BIRCH Approved Services N/A Denied Services [id number] LUMBAR SPINE WO IVCON Alternative RecommendationN/A #Service which can be approved in place of denied service. Clinical Documentation ProvidedOFFICE NOTES: AMPS 09/02/24, 06/03/24, 12/04/23, 08/18/23, PT 09/18/23, 09/12/23, 09/05/23, 09/01/23, 08/29/23, MCDANIEL 09/07/23, TEL 08/29/24, SURGERY 08/23/23, VALASQUEZ 08/14/23 IMAGING: XR 11/27/23, 08/28/23, 08/23/23, MRI 04/26/23, CT 02/27/23, 08/02/22, EXT DO Peer to Peer Instructions Peer to Peer opt 2 (enter tracking#) / opt 1 Does Peer to Peer need to be scheduled?No Who can complete the Peer to Peer?Dr, PA, [employer] ESSBASE DEVELOPER, LN Additional Peer to Peer InstructionsYou can call for the peer to peer at the date and time of your convenience Appeal Instructions Appeal AddressN/A Appeal Required Form(s)Provider and member's consent forms are required for appeal submission. Please see attached or see links to get the forms below: Provider form: [email or web address] [email or web address] Member form: [email or web address] [email or web address] Additional Appeal InstructionsSend it attention to: Appeals department and include: coversheet with patient's and case information, a formal appeal letter and attach any pertinent supporting clinical documentation. Also, provider and member's consent forms are required for appeal submission. [id number] Tax ID#[id number] Thank you for the attentionPraveen (more content not included)... Normal [facility] Susi 10-04-2024 [place] Telephone (NEADFV) ELSY DINERO ([id number]) 1970 F Date Time Provider Department 10/04/24 AMBROSE BIRCHADFV During your visit today, we recorded the following information about you: Deja Hebert 10/04/2024 11:39 AM Signed Keiry Pichardo DC Summary 09/30/24 scanned to Steffany Tilley RN 10/04/2024 1:37 PM Addendum Printed for review . No signature needed. Forwarded to providers to review. Allergies As of Date: 10/04/2024 Noted Allergy Reaction GABAPENTIN 12/26/2022 1 - Mental Status Change PREDNISONE 05/30/2006 1 - Mental Status Change Comments: FEELS LIKE I'M GOING NUTS CATS 12/27/2004 4 - Hives CIPROFLOXACIN 01/29/2011 11 - Vomiting Comments: States can take if she eats with it. 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 - spironolactone (ALDACTONE) 50 mg tablet Take 1 tablet by mouth two times a day. - methocarbamol (ROBAXIN) 750 mg tablet Take 1 tablet by mouth three times a day as needed. - lactobacillus rhamnosus (CULTURELLE) 10 billion cell capsule Take 1 capsule by mouth once daily. - ibuprofen (MOTRIN ORAL) Take 600 mg by mouth three times a day. - albuterol HFA (PROVENTIL HFA, VENTOLIN HFA) 90 mcg/actuation inhaler Inhale 2 Puffs as instructed every 4 hours as needed for wheezing/shortness of breath. - docusate sodium (COLACE) 100 mg capsule Take 1 capsule by mouth two times a day. - sennosides (SENNACON ORAL) Take 1 tablet by mouth once daily. - triamcinolone acetonide (NASACORT AQ NASAL) Use 1 [place] in the nose as needed (allergies). - fexofenadine (STANLEY) 180 mg tablet Take 180 mg by mouth once daily. - famotidine (PEPCID) 20 mg tablet Take 20 mg by mouth two times a day. Problem List As Of Date 10/04/2024 Noted Resolved Other acne [L70.8] 04/08/2005 09/16/2019 Other specified endocrine disorders [E34.8] 04/08/2005 09/16/2019 Cough [R05.9] 05/30/2006 09/16/2019 Allergy-induced asthma, mild intermittent, unco* 08/25/2023 Tobacco abuse [Z72.0] 04/11/2007 Duodenitis [K29.80] 09/14/2011 06/23/2021 Acute gastritis without mention of hemorrhage [*09/14/2011 06/23/2021 Neurodermatitis [L28.0] 04/22/2013 06/23/2021 Eczematous dermatitis [L30.9] 04/22/2013 06/23/2021 Pyoderma, unspecified [L08.0] 04/22/2013 09/16/2019 Impetigo [L01.00] 04/22/2013 09/16/2019 Pruritus [L29.9] 04/22/2013 09/16/2019 Excoriation [T14.8XXA] 04/22/2013 09/16/2019 Prurigo papule [L28.2] 04/22/2013 03/01/2022 Lichenification and lichen simplex chronicus [L*04/22/2013 06/23/2021 Xerosis cutis [L85.3] 04/22/2013 09/16/2019 Spinal stenosis, lumbar region with neurogenic *03/27/2015 Low back pain [M54.50] 09/14/2015 05/17/2016 Chronic pain [G89.29] 09/14/2015 05/17/2016 Facet arthropathy, lumbar [M47.816] 05/17/2016 03/01/2022 Chronic midline low back pain without sciatica *05/17/2016 03/01/2022 Acid reflux [K21.9] Hirsutism [L68.0] 09/16/2019 Elevated dehydroepiandrosterone (DHEA) level [R*09/16/2019 03/01/2022 Pure hypercholesterolemia [E78.00] 06/28/2021 Former smoker [Z87.891] 12/13/2021 08/25/2023 Post-operative state [Z98.890] 01/07/2022 03/01/2022 Thrombosis, iliac, 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] 02/15/2022 03/01/2022 Lumbar stenosis with neurogenic claudication [M*02/23/2022 Acute postoperative pain [G89.18] 02/23/2022 05/19/2022 Hypomagnesemia [E83.42] 02/24/2022 03/01/2022 Status post lumbar spinal fusion [Z98.1] 02/24/2022 Poor compliance [Z91.199] 02/28/2022 08/25/2023 Orthopedic aftercare [Z47.89] 03/03/2022 08/25/2023 Suicidal ideation [R45.851] 03/03/2022 07/04/2022 Generalized weakness [R53.1] 03/05/2022 08/25/2023 History of DVT (deep vein thrombosis) [Z86.718] 03/05/2022 S/P hardware removal [Z98.890] 05/17/2022 08/25/2023 Asthma with chronic obstructive pulmonary disea*05/17/2022 PAD (peripheral artery disease) (HCC) [I73.9] 02/09/2023 Encounter Status:Closed by STEFFANY ARROYO on 10/04/24 [facility] Office Visit (UCWSTR ) ELSY DINERO ([id number]) 1970 F Date Time Provider Department 09/30/24 9:00 AM [facility] During your visit today, we recorded the following information about you: Temperature Pulse Respiration Blood pressure 97 degrees 58/minute 18/minute 110/72 Weight 73.2 kg Wendy Stone APRN.[employer] 09/30/2024 9:47 AM Signed CC: Patient presents with: Cough: Cough, sinus and congestion x 1 month HPI: Elsy Dinero is a 54 year old female who presents to the office with complaint of head congestion and cough, nonproductive for a month. Symptoms are staying the same. Associated symptoms includes nasal congestion and facial pain/pressure. Denies wheezing, dyspnea, nausea, vomiting , and diarrhea. Treatments tried include nothing so far. with no relief of symptoms. Sick contacts: unknown. History of asthma, frequent episodes of bronchitis, chronic bronchitis, bronchiectasis or COPD: No Smoker: No Seasonal/environmental allergies: No The ROS is otherwise negative. The patient's pmh, medications, allergies, and past visits are reviewed. PHYSICAL EXAM: BP 110/72 Pulse (!) 58 Temp 36.1 ?C (97 ?F) (Tympanic) Resp 18 Wt 73.2 kg (161 lb 6 oz) LMP 03/02/2015 SpO2 100% BMI 27.05 kg/m? General appearance: alert, cooperative, pleasant, in no acute distress Head: Normocephalic Eyes: EOM's intact, conjunctiva pink and moist, no icterus, sclera white, non-injected Ears: Right ear: External ear/canal- Normal, TM - clear with good landmarks. Left ear: External ear/canal- Normal, TM - clear with good landmarks Oropharynx:moist without lesions, No erythema, exudates or tonsillar hypertrophy. Heart: Negative. RRR without obvious murmur, gallop, or rubs. No ectopy. Lungs: clear to auscultation, without rales or wheeze, good air exchange PAST MEDICAL HISTORY Diagnosis Date Acid reflux Acute gastritis without mention of hemorrhage 09/14/2011 Allergy-induced asthma, mild intermittent, uncomplicated Asthma Chronic midline low back pain without sciatica 05/17/2016 Duodenitis 09/14/2011 Duodenitis without mention of hemorrhage Facet arthropathy, lumbar 05/17/2016 Hemorrhage of gastrointestinal tract, unspecified Hirsutism 09/16/2019 Pure hypercholesterolemia 06/28/2021 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 Spinal stenosis, lumbar region, without neurogenic claudication 03/27/2015 Suicidal ideation 03/03/2022 Tobacco use disorder 04/11/2007 Vascular occlusion 01/07/2022 Intraoperative L common iliac artery occlusion PAST SURGICAL HISTORY Procedure Laterality Date ARTHROSCOPIC REMOVAL HARDWARE DEEP 05/17/2022 removal of iliac screws ESOPHAGOGASTRODUODENOSCOPY TRANSORAL DIAGNOSTIC 09/14/2011 EGD ILIAC REVASC ADD-ON Left 01/07/2022 L Common Iliac Artery endarterectomy LUMBAR SPINE FUSION COMBINED 02/23/2022 L2 to ilium instrumented fusion, L3, 4 and 5 laminectomy, L2-3, 3-4 and L5-S1 transforaminal lumbar interbody fusion. LUMBAR SPINE FUSION,ANTER APPRCH 01/07/2022 ALIF L4-L5. ORTHOPEDICS SURGERY HX 08/23/2023 L2-S1 implant removal AND change PAST SURGICAL HISTORY OF 04/29/2012 excision of back lump SIGMOIDOSCOPY FLX DX W/COLLJ SPEC BR/WA IF PFRMD 09/14/2011 Sigmoidoscopy, flexible ALLERGIES Gabapentin, Prednisone, Cats, Ciprofloxacin, Dogs, Grass Pollen, Niacin, Pollen, and Trees MEDICATIONS spironolactone (ALDACTONE) 50 mg tablet Take 1 tablet by mouth two times a day. methocarbamol (ROBAXIN) 750 mg tablet Take 1 tablet by mouth three times a day as needed. lactobacillus rhamnosus (CULTURELLE) 10 billion cell capsule Take 1 capsule by mouth once daily. ibuprofen (MOTRIN ORAL) Take 600 mg by mouth three times a day. albuterol HFA (PROVENTIL HFA, VENTOLIN HFA) 90 mcg/actuation inhaler Inhale 2 Puffs as instructed every 4 hours as needed for wheezing/shortness of breath. docusate sodium (COLACE) 100 mg capsule Take 1 capsule by mouth two times a day. sennosides (SENNACON ORAL) Take 1 tablet by mouth once daily. triamcinolone acetonide (NASACORT AQ NASAL) Use 1 [place] in the nose as needed (allergies). fexofenadine (STANLEY) 180 mg tablet Take 180 mg by mouth once daily. famotidine (PEPCID) 20 mg tablet Take 20 mg by mouth two times a day. FAMILY HISTORY Problem Relation Age of Onset GI Mother colon polyps Cancer Mother Lung/Uterine/ cervical Allergies Mother Osteoporosis Mother GI Father colon polyps Diabetes Father Coronary Artery Disease Father Stents Heart Father age 85 Dementia Father No Known Problems Sister No Known Problems Sister Diabetes Brother Kidney Disease Brother dialysis Heart Failure Brother Breast Cancer Maternal Grandmother Allergies Maternal Grandfather Breast Cancer Paternal Grandmother Allergies Paternal Grandmother Diabetes Paternal Grandfathe (more content not included)... Normal [facility] PT D/C Summary (1)on 025 PT D/C Summary (1) [facility] [address] [place] [address] / REHABILITATION SERVICES DISCHARGE SUMMARY MR#: [id number] Acct: [id number] Name: ELSY DINERO Rep #: [id number] : 1970 54 From: Suzy Rodriguez PT, Cert. MDT Referring Dr.: OUT OF TOWN DOCTOR Status: REG R CR Insurance: [facility] SELF PAY INSURANCE Discharge Summary D/C summary: It has been my pleasure to treat ELSY DINERO referred by AMBROSE BIRCH, with the diagnosis of LUMBAR SPINAL STENOSIS W/NEUROGENIC CLAUDICATION for a total of 8 visit(s). Discharge Date: 09/30/24 Please see the following information for a summary of their discharge status. Subjective Subjective: PATIENT REPORTS THAT OVER-ALL SHE IS NO BETTER/NO WORSE SINCE STARTING PT. PATIENT REPORTS SHE IS DOING INDEP POOL EX 4-6 TIMES A WEEK AND WAS IN THE POOL THIS MORNING AND THAT HELPS LOOSEN UP HER LOWER BODY AND HELPS HER BALANCE. SHE REPORTS ALL OF THE LAND PT SESSIONS HAVE BEEN GOOD AND SHE ALWAYS LEAVES FEELING MORE CAPABLE OVER-ALL BUT INTERMITTENT RANDOM SPAMS DO TEMPORARILY SET HER BACK. PATIENT REPORTS SHE WOULD LIKE TO STOP FORMAL PT AT THIS TIME AND CONTINUE WITH LAND AND WATER EX ON HER OWN. SHE STATES SHE IS STILL AWAITING APPROVAL FOR HER CAT SCAN. Pain LB: Pain Intensity (Out of 10): 3 R LE: Pain Intensity (Out of 10): 3 Overall Improvement % Improvement: 2 Objective Objective/Function: PATIENT WAS SEEN TODAY FOR RE-ASSESSMENT OF PROGRESS TOWARD THE SET PT GOALS AND THE NEED FOR FURTHER PHYSICAL THERAPY VS READINESS FOR DISCHARGE. SHE IS INDEP IN A GYM EX PROGRAM NOW AND SHOWS IMPROVEMENT WITH ALL TESTING BELOW COMPARED TO INITIAL EVAL. PATIENT IS APPROPRIATE FOR D/C. ALTHOUGH OBJECTIVELY TESTS HAVE IMPROVED, SUBJECTIVELY PAIN % IMPROVEMENT AND OSWESTRY SCORE HAVE NOW. UPON EXAM TODAY: Motor deficit: R HIP 4-/5, KNEE 4/5, ANKLE 3-/5. L HIP 5/5, KNEE 5/5, ANKLE 5/5. Dural Signs: NEGATIVE CISCO LE'S. Lumbar mvmt loss: flex - MIN - INCREASE R BACK - NW ext - MOD - NE R SG - MOD - NE L SG - MOD - NE LUMBAR MVMTS ARE GUARDED ALL PLANES BUT PATIENT STATES THAT'S OK WHEN BENDING SIDE TO SIDE AND BACK WITH TESTING TODAY. SHE RECALLS THAT WHEN WE DID HER INITIAL EVAL SHE HAD NOT BEEN IN THE POOL FOR ABOUT A WEEK BECAUSE OF THE CUT ON HER EAR. Core strength: POOR Palpation: MILD TENDERNESS WITH PALPATION OF R LOW BACK AND R GREATER TROCH REGIONS. ALSO GENERAL HYPERSENSATIVITY WITH LIGHT TOUCH REPORTED R THIGH AND LEG. TUG TEST TIME WITHOUT AD OR LOB: 10.43 SEC 30 SEC STS TEST WITHOUT UE ASSIST: 12 SEC OTHER: NEGATIVE CISCO [place] TESTS FOR PAIN BUT R STILL TIGHTER THAN L. Goals Goal 1:: DECREASE C/O LOW BACK AND R LE SX'S BY AT LEAST 50% TO EASE ADL'S. Goal Progress: Not Met Goal 2:: IMPROVE SITTING, STANDING, WALKING, BENDING, LIFTING, SLEEP, SOCIAL LIFE, WORK AND HOMEMAKING FUNCTION WITH IMPROVED BACK OSWESTRY SCORE OF AT LEAST 5 POINTS. Goal Progress: Progressing Goal 3:: INDEP HOME AND GYM EX PROGRAMS - PATIENT HAS [employer] G[employer] MEMBERSHIP. Goal Progress: Goal Met Plan Plan: D/C TO INDEP EX. PATIENT AGREEABLE. D/C Information d/c sentence: If there are questions or concerns regarding this patient's physical therapy, please feel free to call me at [phone]. Thank you for the referral of this patient. Sincerely, Suzy Rodriguez, PT, Cert MDT Balance/Gait/Functional tests Balance/Special Test Scores Oswestry Low Back Score: 28 Improvement % Improvement: 2 09/30/24 1101 CC: Dr. Elvin Diaz MD; AMBROSE BIRCH AMRIK Signed Normal [facility] XR CHEST 2V FRONTAL/LATon XR CHEST 2V FRONTAL/LAT * * *Final Report* * * DATE OF EXAM: Sep 30 2024 9:30AM WOX 5291 - XR CHEST 2V FRONTAL/LAT / PROCEDURE REASON: Acute cough * * * * Physician Interpretation * * * * EXAMINATION: CHEST RADIOGRAPH (2 VIEW FRONTAL and LATERAL) CLINICAL HISTORY: Acute cough MQ: XC2_6 EXAM DATE/TIME: 09/30/2024 9:30 AM COMPARISON: Chest x-ray dated 05/30/2023 RESULT: Lines, tubes, and devices: None. Lungs and pleura: No consolidation. No lung mass. No pleural effusion. No pneumothorax. Cardiomediastinal silhouette: Stable cardiomediastinal silhouette. Bones and soft tissues: No acute abnormality. IMPRESSION: No acute radiographic abnormality. Primary Therapist: [facility] Transcribe Date/Time: Sep 30 2024 9:31A Dictated by : RICKIE EDMONDS MD This examination was interpreted and the report reviewed and electronically signed by: RICKIE EDMONDS MD on Sep 30 2024 9:31AM EST [id number] Normal [facility] XR Chest PA and Lateralon IMPRESSION: No acute radiographic abnormality. Primary Therapist: [facility] Transcribe Date/Time: Sep 30 2024 9:31A Dictated by : RICKIE EDMONDS MD This examination was interpreted and the report reviewed and electronically signed by: RICKIE EDMONDS MD on Sep 30 2024 9:31AM EST DIVISION OF RADIOLOGY * * *Final Report* * * DATE OF EXAM: Sep 30 2024 9:30AM WOX 5291 - XR CHEST 2V FRONTAL/LAT / PROCEDURE REASON: Acute cough * * * * Physician Interpretation * * * * EXAMINATION: CHEST RADIOGRAPH (2 VIEW FRONTAL & LATERAL) CLINICAL HISTORY: Acute cough MQ: XC2_6 EXAM DATE/TIME: 09/30/2024 9:30 AM COMPARISON: Chest x-ray dated 05/30/2023 RESULT: Lines, tubes, and devices: None. Lungs and pleura: No consolidation. No lung mass. No pleural effusion. No pneumothorax. Cardiomediastinal silhouette: Stable cardiomediastinal silhouette. Bones and soft tissues: No acute abnormality. DIVISION OF RADIOLOGY Provider, [facility] - 09/30/2024 * * *Final Report* * * DATE OF EXAM: Sep 30 2024 9:30AM WOX 5291 - XR CHEST 2V FRONTAL/LAT / PROCEDURE REASON: Acute cough * * * * Physician Interpretation * * * * EXAMINATION: CHEST RADIOGRAPH (2 VIEW FRONTAL & LATERAL) CLINICAL HISTORY: Acute cough MQ: XC2_6 EXAM DATE/TIME: 09/30/2024 9:30 AM COMPARISON: Chest x-ray dated 05/30/2023 RESULT: Lines, tubes, and devices: None. Lungs and pleura: No consolidation. No lung mass. No pleural effusion. No pneumothorax. Cardiomediastinal silhouette: Stable cardiomediastinal silhouette. Bones and soft tissues: No acute abnormality. IMPRESSION IMPRESSION: No acute radiographic abnormality. Primary Therapist: [facility] Transcribe Date/Time: Sep 30 2024 9:31A Dictated by : RICKIE EDMONDS MD This examination was interpreted and the report reviewed and electronically signed by: RICKIE EDMONDS MD on Sep 30 2024 9:31AM EST [facility] Radiology Study observation (narrative) [facility] XR Chest PA and LateralOrder ed By: [facility] Provider on 09-30-2024 [facility] Sus[facility] ([id number]) 1970 F Date Time Provider Department 09/18/24 AMBROSE BIRCH During your visit today, we recorded the following information about you: Stanley Deluca, RN 09/18/2024 2:07 PM Signed Received notification that scheduled CT scan on 09/20/24 had and pt needs new order. Anna Santoyo 09/19/2024 12:41 PM Signed Patient has appointment tomorrow and is not sure if CT is approve. Patient would like a phone call. Elsy Conklin 09/26/2024 2:38 PM Signed Patient at [phone] is requesting a call back (not mychart) Re: status of CT approval and if it's still denied, then what happens next? Stanley Deluca, RN 09/26/2024 3:02 PM Signed Call placed to [facility] for update. Rep states additional information/updated note that was faxed on 09/13/24 was received. Rep states denied CT is still under MD review; is still processing. Patient notified. Patient advised to reschedule CT until authorization is reached. Allergies As of Date: 09/18/2024 Noted Allergy Reaction GABAPENTIN 12/26/2022 1 - Mental Status Change PREDNISONE 05/30/2006 1 - Mental Status Change Comments: FEELS LIKE I'M GOING NUTS CATS 12/27/2004 4 - Hives CIPROFLOXACIN 01/29/2011 11 - Vomiting Comments: States can take if she eats with it. DOGS 12/27/2004 4 - Hives GRASS POLLEN 12/27/2004 5 - Intolerance NIACIN 08/31/2005 2 - Rash 11 - Vomiting POLLEN 12/27/2004 4 - Hives TREES 12/27/2004 5 - Intolerance Date Reviewed: 09/02/2024 Reviewed by: Isaac Field MA - Fully Assessed Reason for Visit: Insurance Authorization [[id number]] Primary Visit Diagnosis:Spinal stenosis of lumbar region with neurogenic claudication [M48.062] Order(s):CT LUMBAR SPINE WO IVCON [[id number]] Order #: [id number] FUTURE Prescriptions as of 09/26/2024 - spironolactone (ALDACTONE) 50 mg tablet Take 1 tablet by mouth two times a day. - methocarbamol (ROBAXIN) 750 mg tablet Take 1 tablet by mouth three times a day as needed. - lactobacillus rhamnosus (CULTURELLE) 10 billion cell capsule Take 1 capsule by mouth once daily. - ibuprofen (MOTRIN ORAL) Take 600 mg by mouth three times a day. - albuterol HFA (PROVENTIL HFA, VENTOLIN HFA) 90 mcg/actuation inhaler Inhale 2 Puffs as instructed every 4 hours as needed for wheezing/shortness of breath. - docusate sodium (COLACE) 100 mg capsule Take 1 capsule by mouth two times a day. - sennosides (SENNACON ORAL) Take 1 tablet by mouth once daily. - triamcinolone acetonide (NASACORT AQ NASAL) Use 1 [place] in the nose as needed (allergies). - fexofenadine (STANLEY) 180 mg tablet Take 180 mg by mouth once daily. - famotidine (PEPCID) 20 mg tablet Take 20 mg by mouth two times a day. Problem List As Of Date 09/18/2024 Noted Resolved Other acne [L70.8] 04/08/2005 09/16/2019 Other specified endocrine disorders [E34.8] 04/08/2005 09/16/2019 Cough [R05.9] 05/30/2006 09/16/2019 Allergy-induced asthma, mild intermittent, unco* 08/25/2023 Tobacco abuse [Z72.0] 04/11/2007 Duodenitis [K29.80] 09/14/2011 06/23/2021 Acute gastritis without mention of hemorrhage [*09/14/2011 06/23/2021 Neurodermatitis [L28.0] 04/22/2013 06/23/2021 Eczematous dermatitis [L30.9] 04/22/2013 06/23/2021 Pyoderma, unspecified [L08.0] 04/22/2013 09/16/2019 Impetigo [L01.00] 04/22/2013 09/16/2019 Pruritus [L29.9] 04/22/2013 09/16/2019 Excoriation [T14.8XXA] 04/22/2013 09/16/2019 Prurigo papule [L28.2] 04/22/2013 03/01/2022 Lichenification and lichen simplex chronicus [L*04/22/2013 06/23/2021 Xerosis cutis [L85.3] 04/22/2013 09/16/2019 Spinal stenosis, lumbar region with neurogenic *03/27/2015 Low back pain [M54.50] 09/14/2015 05/17/2016 Chronic pain [G89.29] 09/14/2015 05/17/2016 Facet arthropathy, lumbar [M47.816] 05/17/2016 03/01/2022 Chronic midline low back pain without sciatica *05/17/2016 03/01/2022 Acid reflux [K21.9] Hirsutism [L68.0] 09/16/2019 Elevated dehydroepiandrosterone (DHEA) level [R*09/16/2019 03/01/2022 Pure hypercholesterolemia [E78.00] 06/28/2021 Former smoker [Z87.891] 12/13/2021 08/25/2023 Post-operative state [Z98.890] 01/07/2022 03/01/2022 Thrombosis, iliac, 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] 02/15/2022 03/01/2022 Lumbar stenosis with neurogenic claudication [M*02/23/2022 Acute postoperative pain [G89.18] 02/23/2022 05/19/2022 Hypomagnesemia [E83.42] 02/24/2022 03/01/2022 Status post lumbar spinal fusion [Z98.1] 02/24/2022 Poor compliance [Z91.199] 02/28/2022 08/25/2023 Orthopedic aftercare [Z47.89] 03/03/2022 08/25/2023 Suicidal ideation [R45.851] 03/03/2022 07/04/2022 Generalized weakness [R53.1] 03/05/2022 08/25/2023 History of DVT (deep vein thrombosis) [Z86.718] 03/05/2022 S/P hardware removal [Z98.890] 05/17/2022 08/25/2023 Asthma with chronic obstructive pulmonary disea*05/17/2022 PAD (peripheral artery disease) (HCC) (more content not included)... [facility] 09-05-2024 JESSICA Telephone (NEADFV) ELSY DINERO ([id number]) 1970 F Date Time Provider Department 09/05/24 AMBROSE BIRCHFV During your visit today, we recorded the following information about you: Deja Hebert 09/05/2024 2:30 PM Signed Keiry initial evaluation scanned to [facility] Stanley Deluca RN 09/06/2024 9:53 AM Signed Forms printed for review. Stanley Deluca RN 09/06/2024 10:26 AM Signed Form completed and faxed with confirmation of receipt. [place] Allergies As of Date: 09/05/2024 Noted Allergy Reaction GABAPENTIN 12/26/2022 1 - Mental Status Change PREDNISONE 05/30/2006 1 - Mental Status Change Comments: FEELS LIKE I'M GOING NUTS CATS 12/27/2004 4 - Hives CIPROFLOXACIN 01/29/2011 11 - Vomiting Comments: States can take if she eats with it. 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 - doxycycline (VIBRA-TABS) 100 mg tablet Take 1 tablet by mouth two times a day for 10 days. - methocarbamol (ROBAXIN) 750 mg tablet Take 1 tablet by mouth three times a day as needed. - lactobacillus rhamnosus (CULTURELLE) 10 billion cell capsule Take 1 capsule by mouth once daily. - ibuprofen (MOTRIN ORAL) Take 600 mg by mouth three times a day. - albuterol HFA (PROVENTIL HFA, VENTOLIN HFA) 90 mcg/actuation inhaler Inhale 2 Puffs as instructed every 4 hours as needed for wheezing/shortness of breath. - docusate sodium (COLACE) 100 mg capsule Take 1 capsule by mouth two times a day. - sennosides (SENNACON ORAL) Take 1 tablet by mouth once daily. - triamcinolone acetonide (NASACORT AQ NASAL) Use 1 [place] in the nose as needed (allergies). - fexofenadine (STANLEY) 180 mg tablet Take 180 mg by mouth once daily. - famotidine (PEPCID) 20 mg tablet Take 20 mg by mouth two times a day. Problem List As Of Date 09/05/2024 Noted Resolved Other acne [L70.8] 04/08/2005 09/16/2019 Other specified endocrine disorders [E34.8] 04/08/2005 09/16/2019 Cough [R05.9] 05/30/2006 09/16/2019 Allergy-induced asthma, mild intermittent, unco* 08/25/2023 Tobacco abuse [Z72.0] 04/11/2007 Duodenitis [K29.80] 09/14/2011 06/23/2021 Acute gastritis without mention of hemorrhage [*09/14/2011 06/23/2021 Neurodermatitis [L28.0] 04/22/2013 06/23/2021 Eczematous dermatitis [L30.9] 04/22/2013 06/23/2021 Pyoderma, unspecified [L08.0] 04/22/2013 09/16/2019 Impetigo [L01.00] 04/22/2013 09/16/2019 Pruritus [L29.9] 04/22/2013 09/16/2019 Excoriation [T14.8XXA] 04/22/2013 09/16/2019 Prurigo papule [L28.2] 04/22/2013 03/01/2022 Lichenification and lichen simplex chronicus [L*04/22/2013 06/23/2021 Xerosis cutis [L85.3] 04/22/2013 09/16/2019 Spinal stenosis, lumbar region with neurogenic *03/27/2015 Low back pain [M54.50] 09/14/2015 05/17/2016 Chronic pain [G89.29] 09/14/2015 05/17/2016 Facet arthropathy, lumbar [M47.816] 05/17/2016 03/01/2022 Chronic midline low back pain without sciatica *05/17/2016 03/01/2022 Acid reflux [K21.9] Hirsutism [L68.0] 09/16/2019 Elevated dehydroepiandrosterone (DHEA) level [R*09/16/2019 03/01/2022 Pure hypercholesterolemia [E78.00] 06/28/2021 Former smoker [Z87.891] 12/13/2021 08/25/2023 Post-operative state [Z98.890] 01/07/2022 03/01/2022 Thrombosis, iliac, 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] 02/15/2022 03/01/2022 Lumbar stenosis with neurogenic claudication [M*02/23/2022 Acute postoperative pain [G89.18] 02/23/2022 05/19/2022 Hypomagnesemia [E83.42] 02/24/2022 03/01/2022 Status post lumbar spinal fusion [Z98.1] 02/24/2022 Poor compliance [Z91.199] 02/28/2022 08/25/2023 Orthopedic aftercare [Z47.89] 03/03/2022 08/25/2023 Suicidal ideation [R45.851] 03/03/2022 07/04/2022 Generalized weakness [R53.1] 03/05/2022 08/25/2023 History of DVT (deep vein thrombosis) [Z86.718] 03/05/2022 S/P hardware removal [Z98.890] 05/17/2022 08/25/2023 Asthma with chronic obstructive pulmonary disea*05/17/2022 PAD (peripheral artery disease) (HCC) [I73.9] 02/09/2023 Encounter Status:Closed by STANLEY DELUCA on 09/06/24 [facility] Inital Evaluation (1) - PTon 09-05-2024 Inital Evaluation (1) - PT [facility] [place] [address] / REHABILITATION SERVICES INITIAL EVALUATION MR#: [id number] Acct: [id number] Name: ELSY DINERO Rep #: [id number] : 1970 54 From: Suzy Rodriguez PT, Cert. MDT Referring DrIlene: AMBROSE BIRCH Status: REG RCR Insurance: [facility] SELF PAY INSURANCE Patient's Visit Information Visit Information Visit Information: ELSY DINERO is a 54 year old F referred to Physical Therapy by AMBROSE BIRCH with a diagnosis of LUMBAR SPINAL STENOSIS W/NEUROGENIC CLAUDICATION. Date of Evaluation: 09/05/24 Physical Therapist: Suzy Rodriguez, PT, Cert MDT Visit Plan Frequency: 2-3x /Week Duration: 2-4 Weeks Plan: GAIT AND BALANCE TRAINING. POSTURE AND BUSINESS INSURANCE AGENT TRAINING. DLS STARTING WITH A NEUTRAL SPINE AND PROGRESSING ROM TOLERATED. CISCO LE ROM, STRETCHING AND STRENGTHENING. PATIENT DENIES HAVING ANY PHYSICIAN RESTRICTIONS. Subjective Subjective: Work/Leisure: PATIENT REPORTS SHE HAS NOT WORKED SINCE BACK SURGERY IN 2021. Disability: NO Present symptoms: CISCO LOW BACK PAIN R > L, R THIGH, LEG, AND FOOT PAIN. R LE SPASM AND NUMBNESS. R LE WEAKNESS. Present since: ABOUT 30 YEARS AGO Pain Scale: WORST 8/10, LEAST 3/10 Currently: 5/10 Is it getting better, worse or staying the same: GETTING WORSE Commenced as a result of: HEAVY LIFTING IN 20'S. ALSO USE TO RIDE HORSES AND FELL OFF A LOT. Worse: JUST ABOUT EVERYTHING. PROLONGED SITTING, PROLONGED STANDING, SLANT BOARD CALF STRETCHING, LIFTING, REACHING TO THE FLOOR HARD, SQUATTING DOWN, KNEELING DOWN AND GETTING BACK UP, BENDING, GETTING ON HANDS AND KNEES AND BACK UP. DELAYED ONSET AFTER THESE THINGS. CARRYING THINGS. WALKING WITHOUT AD VERY FAR. SITTING IS MISERY. Better: HANGING ON WALKER TO TAKE PRESSURE OFF HIPS, USING ROLLATOR, THERAPY POOL (PATIENT REPORTS SHE IS INDEP WITH A POOL PROGRAM AND HAS A POOL MEMBERSHIP), MASSAGE, HOT SHOWER, LIFTING WITH UPPER BODY/CORE STRENGTHENING, LYING FLAT ON BACK ON HOSPITAL BED. Disturbed sleep: YES Previous history/Previous treatment: BACK FUSION FROM L1 OR L2 TO S1 (5 CAGES AND ALSO HAS RODS). 4 BACK SURGERIES TOTAL WITH LAST ONE BEING AUG 2023. AQUATIC THERAPY. MASSAGE THERAPY. IN RECOVERY SINCE 2016 - NOT IN PAIN MGMT. Treatment this episode: Eliseo ELLIOTT THROUGH SURGEON. OTC MOTRIN. Coughing/sneezing/straining: POSITIVE FOR INCREASED. Gait: HAS ROLLATOR WITH HER ALMOST AT ALL TIMES WHEN OUT OF HOME. AD NEEDED IN HOME. Bowel or Bladder Dysfunction: NO Accidents: MULTIPLE PER PATIENT REPORT Unexplained weight loss: NO Imagin+ MO'S AGO. LUMBAR CAT SCAN PENDING 09/13/24. PMH/Recent major surgery: Asthma Back spasm Chronic back pain GERD (gastroesophageal reflux disease) Alcohol abuse Seasonal allergies Previous back surgery OTHER: ON ANTIBIOTIC FOR WOUND L EAR. Objective Objective: Sitting/Standing Posture: REDUCED LUMBAR LORDOSIS. Other Observations: INDEP GAIT AND TRANSFERS. PATIENT DEMO'S FREELY WALKING AROUND TREATMENT ROOM WITHOUT AD, SQUATTING, KNEELING, GETTING DOWN ON THE FLOOR ON HANDS AND KNEES AND BACK UP AGAIN FROM THESE POSITIONS INDEP'LY TO DEMONSTRATE THINGS WHILE GIVING SUBJECTIVE INFORMATION. SHE AMBULATES INTO PT WITH A ROLLATOR AND DOES INTERMITTENTLY LIMP ON THE R LE. Sensory deficit: ALTERED SENSATION R THIGH AND LEG REPORTED WITH TESTING COMPARED TO LEFT AND DESCRIBED MORE SENSATIVE ON THE RIGHT. ROM deficit: R HIP IR/ER TIGHTER THAN L. CISCO HS AND CALF TIGHTNESS R > L. Motor deficit: R HIP 4-/5, KNEE 4/5, ANKLE 3-/5. L HIP 5/5, KNEE 5/5, ANKLE 5/5. Reflexes: UNABLE TO ELICIT CISCO LE DTR'S. Dural Signs: POSITIVE CISCO LE'S. Lumbar mvmt loss: flex - MOD ext - RACHEL R SG - RACHEL L SG - RACHEL Core strength: POOR Palpation: MILD TENDERNESS WITH PALPATION OF R LOW BACK AND R GREATER TROCH REGIONS. ALSO GENERAL HYPERSENSATIVITY WITH LIGHT TOUCH REPORTED R THIGH AND LEG. TUG TEST TIME WITHOUT AD OR LOB: 11.53 SEC 30 SEC STS TEST WITHOUT UE ASSIST: 8 SEC OTHER: POSITIVE [place] R LE. THIS PT INSTRUCTED PATIENT THROUGHOUT SESSION NOT TO OVER-DO-IT AND TO JUST DO WHAT SHE WAS COMFORTABLE DOING DUE TO PATIENT REPORTING DELAYED PAIN RESPONSE AFTER ACTIVITY DURING SUBJECTIVE INTERVIEW. Balance/Special Test Scores Oswestry Low Back Score: 28 Goals Goal 1:: DECREASE C/O LOW BACK AND R LE SX'S BY AT LEAST 50% TO EASE ADL'S. Goal Time Frame: 6-8 Weeks Goal 2:: IMPROVE SITTING, STANDING, WALKING, BENDING, LIFTING, SLEEP, SOCIAL LIFE, WORK AND HOMEMAKING FUNCTION WITH IMPROVED BACK OSWESTRY SCORE OF AT LEAST 5 POINTS. Goal Time Frame: 6-8 Weeks Goal 3:: INDEP HOME AND GYM EX PROGRAMS - PATIENT HAS [employer] GYM MEMBERSHIP. Rehabilitation Potential Physical Therapy Diagnosis: LOW BACK AND R LE TENDERNESS WITH TRUNK AND LE STIFFNESS AND WEAKNESS R LE > L (more content not included)... Normal [facility] 09-02-2024 [facility] Office Visit (SSINDP ) ELSY DINERO ([id number]) 1970 F Date Time Provider Department 09/02/24 9:45 AM AMBROSE BIRCH SSINDP During your visit today, we recorded the following information about you: Weight 72.1 kg Ambrose Birch MD 09/02/2024 12:37 PM Signed SPINE SURGERY ESTABLISHED This is an in-person visit. DATE OF SERVICE: 09/02/2024 DATE OF LAST VISIT: 06/03/2024 SURGERY DATE: 08/23/2023 SUBJECTIVE: HPI:Elsy Dinero is a 54 year old female presenting alone. At [facility], the patient reported that she has shown great improvement after her surgery. As of now, she was undergoing physical therapy 5-6 days a week to build her strength back. She is able to lift weights and walk for about a mile before feeling pain in he back and feet. She states she needs to frequently stretch her muscles while walking in order to keep ambulating. She is able to stand up straight on her own at this time. Today, the patient reports that, while she is building her strength in her back, she has reported experiencing frequent spasms, feeling the sensation radiate into her legs and feet. She has finished her treatment at physical therapy, and while she is able to lift and do more with her strength renewed, she is still not completely better. She was previously taking gabapentin for her back pain, but has since stopped. PAIN EVALUATION 09/02/2024 0946 Pain Level: 8 Pain Location: Back-Lower Description: Spasm;Radiating Duration Units: Unknown Frequency: Intermittent Intervention/Comfort measure: Medication;Reposition;Relaxat ion Pain Radiation: Low back and bilateral leg pain Aggravating Factors: Standing, Walking Alleviating Factors: Sitting AMBULATORY STATUS: Impaired Community Distances ANTIPLATELET OR ANTICOAGULATION STATUS: No PREVIOUS CONSERVATIVE TREATMENTS: Ibuprofen, Robaxin REVIEW OF SYSTEMS: GENERAL: No weight loss or malaise MUSCULOSKELETAL: SEE HPI NEURO: No history of syncope, paralysis, seizures or tremors MEDICATIONS: doxycycline (VIBRA-TABS) 100 mg tablet Take 1 tablet by mouth two times a day for 10 days. methocarbamol (ROBAXIN) 750 mg tablet Take 1 tablet by mouth three times a day as needed. lactobacillus rhamnosus (CULTURELLE) 10 billion cell capsule Take 1 capsule by mouth once daily. spironolactone (ALDACTONE) 50 mg tablet Take 1 tablet by mouth two times a day. ibuprofen (MOTRIN ORAL) Take 600 mg by mouth three times a day. albuterol HFA (PROVENTIL HFA, VENTOLIN HFA) 90 mcg/actuation inhaler Inhale 2 Puffs as instructed every 4 hours as needed for wheezing/shortness of breath. docusate sodium (COLACE) 100 mg capsule Take 1 capsule by mouth two times a day. sennosides (SENNACON ORAL) Take 1 tablet by mouth once daily. triamcinolone acetonide (NASACORT AQ NASAL) Use 1 [place] in the nose as needed (allergies). fexofenadine (STANLEY) 180 mg tablet Take 180 mg by mouth once daily. famotidine (PEPCID) 20 mg tablet Take 20 mg by mouth two times a day. Patient Entered Questionnaires 04/27/2021 06/10/2021 12/20/2021 Spine Questions Pain Location: Lower back Lower back Lower back Pain Duration: More than 5 years Symptoms from neck/cervical spine: No No No Employment Status: Working now Involved in law suit/legal claim: No 04/27/2021 Spine Red Flags Any type of cancer: No Unexplained fever: No Bowel or bladder disfunction: Yes Unintentional weight loss: No Osteoporosis: No PROMIS Score Percentiles 04/27/2021 06/10/2021 12/20/2021 Physical Health Physical Function Percentile 3 2 2 Sleep Percentile 4 4 21* Fatigue Percentile 14 1 4 Pain Interference Percentile 1 1 4 04/27/2021 06/10/2021 12/20/2021 PROMIS SOCIAL ROLE SCORE Social Role Satisfaction Percentile 10 8 18* 05/17/2016 04/27/2021 12/20/2021 PROMIS Global Health Scale Physical Health Percentile 7 4 2 Mental Health Percentile 26* 43 13 Percentiles provide an indication of how the patient's score ranks in relation to the general population. Higher percentile rankings indicate better function/quality of life. 50th percentile is the average of the general population and indicates half of respondents had a worse score. Depression Screenin04/27/2021 06/10/2021 12/20/2021 PHQ-9 Score 9 10 10 04/27/2021 06/10/2021 12/20/2021 PHQ-9 Self-harm Question Question 9 Not at all Not at all Not at all PHQ-9 Self-Harm (Item 9) response options: 0 Not at all 1 Several days 2 More than half the days 3 Nearly every day PHQ-9 Levels: 0-4 No to mild depression 5-9 Mild depression 10-14 Moderate depression 15-19 Moderately severe depression 20-27 Severe depression OBJECTIVE: PHYSICAL EXAM: Wt 158 lb 15.2 oz (72.1kg) LMP 03/02/2015 GENERAL APPEARANCE: Well nourished, well developed, and no apparent distress. NEURO PSYCH: Patient oriented to person (more content not included)... Normal [facility] CNOVon 08-30-2024 [facility] Office Visit (UCWSTR ) ELSY DINERO ([id number]) 1970 F Date Time Provider Department 08/30/24 1:15 PM STEPHANIE ESPINOZA [facility] During your visit today, we recorded the following information about you: Temperature Pulse Respiration Blood pressure 98.1 degrees 89/minute 16/minute 129/58 Weight 71.7 kg Stephanie Espinoza PA-C 08/30/2024 12:43 PM Signed This note was created using NoteWriter. Subjective Elsy Dinero is a 54 year old female. Patient is a 54-year-old female who arrives for evaluation of increasing redness to skin movement on her left ear that has developed over the past 2 days. Patient states that she participates in swim physical therapy and scratched her left ear several days ago. Patient reports there was significant bleeding at the time of the injury which has since subsided. Patient states she has noted increased redness and pain to the site over the past 2 days. Patient reports no middle ear pain and also denies congestion, sinus pressure or other illness symptoms. Patient has noted no bleeding, serous appearing fluid to the wound site over the past 2 days. Ear Problem Review of Systems HENT: Positive for ear pain. Skin: Positive for wound. Redness To Wound Left Ear All other systems reviewed and are negative. Objective BP 129/58 Pulse 89 Temp 36.7 ?C (98.1 ?F) (Left Tympanic) Resp 16 Wt 71.7 kg (158 lb) LMP 03/02/2015 SpO2 96% BMI 26.48 kg/m? Physical Exam Vitals and nursing note reviewed. Constitutional: Appearance: Normal appearance. She is normal weight. HENT: Head: Normocephalic and atraumatic. Right Ear: Tympanic membrane, ear canal and external ear normal. There is no impacted cerumen. Left Ear: Tympanic membrane and ear canal normal. There is no impacted cerumen. Ears: Comments: There is an approximate 0.5 cm x 0.5 cm superficial skin tear wound to the stem of the antihelix of the left ear. Crusting is noted and there is no active bleeding, serous or purulent fluid. No induration or fluctuance is noted. There is diffuse erythema to the surrounding left auricle. Exam of the left external canal is unremarkable and the patient demonstrates no tenderness with otic exam. Nose: Nose normal. Mouth/Throat: Mouth: Mucous membranes are moist. Pharynx: Oropharynx is clear. Eyes: Extraocular Movements: Extraocular movements intact. Conjunctiva/sclera: Conjunctivae normal. Pupils: Pupils are equal, round, and reactive to light. Cardiovascular: Rate and Rhythm: Normal rate. Pulses: Normal pulses. Pulmonary: Effort: Pulmonary effort is normal. Breath sounds: Normal breath sounds. Musculoskeletal: Cervical back: Normal range of motion and neck supple. Skin: General: Skin is warm and dry. Capillary Refill: Capillary refill takes less than 2 seconds. Neurological: General: No focal deficit present. Mental Status: She is alert and oriented to person, place, and time. Psychiatric: Mood and Affect: Mood normal. Behavior: Behavior normal. Thought Content: Thought content normal. Judgment: Judgment normal. Assessment and Plan Physical exam findings as noted above. Patient was provided with a prescription for doxycycline 100 mg and very clearly instructed to report to an emergency department if she notes any worsening of her symptoms. Patient was advised that if she develops worsening symptoms she will require laboratory testing and IV antibiotics. Patient verbalizes clear understanding of the above instructions. CLINICAL IMPRESSION: Wound Cellulitis Left Ear (Antihelix) ASSESSMENT/PLAN: 1. Wound cellulitis - ICD9: 682.9, ICD10: L03.90 - DOXYCYCLINE HYCLATE 100 MG TABLET Stephanie JEREMIAH Espinoza Allergies As of Date: 08/30/2024 Noted Allergy Reaction GABAPENTIN 12/26/2022 1 - Mental Status Change PREDNISONE 05/30/2006 1 - Mental Status Change Comments: FEELS LIKE I'M GOING NUTS CATS 12/27/2004 4 - Hives CIPROFLOXACIN 01/29/2011 11 - Vomiting Comments: States can take if she eats with it. DOGS 12/27/2004 4 - Hives GRASS POLLEN 12/27/2004 5 - Intolerance NIACIN 08/31/2005 2 - Rash 11 - Vomiting POLLEN 12/27/2004 4 - Hives TREES 12/27/2004 5 - Intolerance Date Reviewed: 08/30/2024 Reviewed by: Ross Hill MA - Fully Assessed Reason for Visit: Ear Problem [38] Cmt: LEFT ear abrasion; possible ingrown hair on L buttock Primary Visit Diagnosis:Wound cellulitis [L03.90] Order(s):doxycycline (VIBRA-TABS) 100 mg tabletTake 1 tablet by mouth two times a day for 10 days.Disp: 20 tabletRfl: 0 Prescriptions as of 08/30/2024 - doxycycline (VIBRA-TABS) 100 mg tablet Take 1 tablet by mouth two times a day for 10 days. - methocarbamol (ROBAXIN) 750 mg tablet Take 1 tablet by mouth three times a day as needed. - lactobacillus rhamnosus (CULTURELLE) 10 billion cell capsule Take 1 capsule by mouth (more content not included)... Normal [facility] CNOVon 06-06-2024 CNOV Office Visit (UCWSTR ) ELSY DINERO ([id number]) 1970 F FNS Date Time Provider Department 06/06/24 1:00 PM IZAIAH MEDINA WSTR During your visit today, we recorded the following information about you: Temperature Pulse Respiration Blood pressure 97 degrees 84/minute 16/minute 120/66 Weight 71.7 kg Izaiah Medina APRN.CNP 06/06/2024 12:45 PM Signed ASSESSMENT/PLAN: 1. Bacterial sinusitis - ICD9: 473.9, 041.9, ICD10: J32.9, B96.89 - Will begin treatment with as per antibiotic as written, see orders - Supportive care with plenty of fluids, rest, and analgesia prn. - DOXYCYCLINE HYCLATE 100 MG TABLET - Follow-up with your PCP in 3-5 days if symptoms have not improved or sooner if symptoms worsen - Discussed red flags and need for immediate medical evaluation if any occur. - Discussed supportive care treatment with fluids, rest and analgesia. - Discussed expected course of illness Izaiah Medina APRN.[employer] [facility] PATIENT INFO ACUTE SINUSITIS OVERVIEW Rhinosinusitis, or more commonly sinusitis, is the medical term for inflammation (swelling) of the lining of the sinuses and nose. The sinuses are the hollow areas within the facial bones that are connected to the nasal openings. The sinuses are lined with mucous membranes, similar to the inside of the nose. There are two main types of sinusitis: acute and chronic. Acute sinusitis is inflammation that lasts for less than four weeks while chronic sinusitis lasts for more than 12 weeks. Acute sinusitis is common, affecting approximately one million people per year in the [place]. ACUTE SINUSITIS CAUSES The most common cause of acute sinusitis is a viral infection associated with the common cold. Bacterial sinusitis occurs much less commonly, in only 0.5 to 2 percent of cases, usually as a complication of viral sinusitis. Because antibiotics are effective only against bacterial, and not viral, infections, most people do not need antibiotics for acute sinusitis. ACUTE SINUSITIS SYMPTOMS Symptoms of acute sinusitis include: Nasal congestion or blockage Thick, yellow to green discharge from the nose Pain in the teeth Pain or pressure in the face that is worse when bending forwards Other acute sinusitis symptoms can include fever (temperature greater than 100.4?F or 38?C), fatigue, cough, difficulty or inability to smell, ear pressure or fullness, headache, and bad breath. In most cases, these symptoms develop over the course of one day and begin to improve within seven to 10 days. DO I NEED TO BE EXAMINED? It is difficult to know if you have a viral or bacterial sinus infection initially. However, most people with a viral infection improve without treatment within seven to 10 days after symptoms begin. Bacterial sinusitis also sometimes improves without treatment, although it can also worsen and require treatment. If one or more of the following bothersome symptoms last more than seven days, an examination by a healthcare provider is recommended: Thick, yellow to green discharge from the nose Face or tooth pain, especially if it is only on one side Tenderness over the maxillary sinuses (located on the left and right side of the nose, inside the cheekbones) Symptoms that initially improve and then worsen When to seek immediate help -- If you have one or more of the following symptoms, you should seek medical attention immediately (even if symptoms have been present for less than seven days): High fever (>102.5? F or 39.2? C) Sudden, severe pain in the face or head Double vision or difficulty seeing Confusion or difficulty thinking clearly Swelling or redness around one or both eyes Stiff neck, shortness of breath ACUTE SINUSITIS TREATMENT Initial treatment of a sinus infection aims to relieve symptoms since almost everyone will improve within the first seven to 10 days. Experts recommend avoiding antibiotics during this time unless there is clear evidence of a severe bacterial infection. Initial treatment Pain relief -- Non-prescription pain medications, such as acetaminophen (eg, Tylenol?) or ibuprofen (eg, Motrin?, Advil?) are recommended for pain. Nasal irrigation and saline sprays -- Rinsing the nose with a salt-water (saline) solution is called nasal irrigation or nasal lavage. Saline is also available in a standard nasal spray, although this is not as effective as using larger amounts of water in an irrigation. Nasal irrigation is particularly useful for treating drainage down the back of the throat, sneezing, nasal dryness, and congestion. The treatment helps by rinsing out allergens and irritants from the nose. Saline rinses also clean the nasal lining and can be used before applying sprays containing medications, to get a better effect from the medication. Nasal lavage wi (more content not included)... Normal [facility] CNOVon 06-03-2024 CNOV Office Visit (SSINDP ) ELSY DINERO ([id number]) 1970 F FNS Date Time Provider Department 06/03/24 10:30 AM AMBROSE BIRCH [facility] During your visit today, we recorded the following information about you: Weight Height 71.7 kg 1.645 m Ambrose Birch MD 06/03/2024 12:44 PM Signed SPINE SURGERY ESTABLISHED This is an in-person visit. DATE OF SERVICE: 06/03/2024 DATE OF LAST VISIT: 12/04/2023 SURGERY DATE: 08/23/2023 SUBJECTIVE: HPI:Elsy Dinero is a 54 year old female presenting alone. At [facility], the patient reported pain and spasms in her back, worse on right side. Spasms tend to be triggered by some activities and stretches. She is now doing aqua therapy and physical therapy exercises on her own which is helpful. She can tolerate walking short distances but experiences buckling and requires a walker for longer distances. Today, the patient reports that she has shown great improvement after her surgery. As of now, she was undergoing physical therapy 5-6 days a week to build her strength back. She is able to lift weights and walk for about a mile before feeling pain in he back and feet. She states she needs to frequently stretch her muscles while walking in order to keep ambulating. She is able to stand up straight on her own at this time. PAIN EVALUATION No data found in the last 1 encounters. Pain Radiation: Low back and legs Aggravating Factors: Walking greater distances Alleviating Factors: Exercising/activity AMBULATORY STATUS: Independent Community Distances ANTIPLATELET OR ANTICOAGULATION STATUS: No PREVIOUS CONSERVATIVE TREATMENTS: Ibuprofen, Robaxin REVIEW OF SYSTEMS: GENERAL: No weight loss or malaise MUSCULOSKELETAL: SEE HPI NEURO: No history of syncope, paralysis, seizures or tremors MEDICATIONS: amoxicillin-clavulanate potassium (AUGMENTIN) 875-125 mg per tablet Take 1 tablet by mouth two times a day for 5 days. spironolactone (ALDACTONE) 50 mg tablet Take 1 tablet by mouth two times a day. ibuprofen (MOTRIN ORAL) Take 600 mg by mouth three times a day. albuterol HFA (PROVENTIL HFA, VENTOLIN HFA) 90 mcg/actuation inhaler Inhale 2 Puffs as instructed every 4 hours as needed for wheezing/shortness of breath. methocarbamol (ROBAXIN) 750 mg tablet Take 1 tablet by mouth three times a day as needed. docusate sodium (COLACE) 100 mg capsule Take 1 capsule by mouth two times a day. sennosides (SENNACON ORAL) Take 1 tablet by mouth once daily. triamcinolone acetonide (NASACORT AQ NASAL) Use 1 [place] in the nose as needed (allergies). fexofenadine (STANLEY) 180 mg tablet Take 180 mg by mouth once daily. famotidine (PEPCID) 20 mg tablet Take 20 mg by mouth two times a day. Patient Entered Questionnaires 04/27/2021 06/10/2021 12/20/2021 Spine Questions Pain Location: Lower back Lower back Lower back Pain Duration: More than 5 years Symptoms from neck/cervical spine: No No No Employment Status: Working now Involved in law suit/legal claim: No 04/27/2021 Spine Red Flags Any type of cancer: No Unexplained fever: No Bowel or bladder disfunction: Yes Unintentional weight loss: No Osteoporosis: No PROMIS Score Percentiles 04/27/2021 06/10/2021 12/20/2021 Physical Health Physical Function Percentile 3 2 2 Sleep Percentile 4 4 21* Fatigue Percentile 14 1 4 Pain Interference Percentile 1 1 4 04/27/2021 06/10/2021 12/20/2021 PROMIS SOCIAL ROLE SCORE Social Role Satisfaction Percentile 10 8 18* 05/17/2016 04/27/2021 12/20/2021 PROMIS Global Health Scale Physical Health Percentile 7 4 2 Mental Health Percentile 26* 43 13 Percentiles provide an indication of how the patient's score ranks in relation to the general population. Higher percentile rankings indicate better function/quality of life. 50th percentile is the average of the general population and indicates half of respondents had a worse score. Depression Screenin04/27/2021 06/10/2021 12/20/2021 PHQ-9 Score 9 10 10 04/27/2021 06/10/2021 12/20/2021 PHQ-9 Self-harm Question Question 9 Not at all Not at all Not at all PHQ-9 Self-Harm (Item 9) response options: 0 Not at all 1 Several days 2 More than half the days 3 Nearly every day PHQ-9 Levels: 0-4 No to mild depression 5-9 Mild depression 10-14 Moderate depression 15-19 Moderately severe depression 20-27 Severe depression OBJECTIVE: PHYSICAL EXAM: Ht 5' 4.764 (1.65m) Wt 158 lb 1.1 oz (71.7kg) LMP 03/02/2015 BMI 26.50 kg/(m2). GENERAL APPEARANCE: Well nourished, well developed, and no apparent distress. NEURO PSYCH: Patient oriented to person, place, and time. Mood pleasant. Benign affect. 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 SENSORY: Normal sensory exam GAIT: Normal. REFLEXES: +2 to bilateral U/ (more content not included)... [facility] Tele[facility] (NEADFV) ELSY DINERO ([id number]) 1970 F FNS Date Time Provider Department 06/03/24 AMBROSE BIRCH During your visit today, we recorded the following information about you: Stanley Deluca RN 06/03/2024 2:48 PM Signed ----- Message from Ambrose Birch MD sent at 06/03/2024 10:47 AM EDT ----- Patient needs later to return to work with comfortable shoes and maybe some sort of ability to take breaks. Thanks Stanley Deluca RN 06/03/2024 2:51 PM Signed Call placed to patient. Asked patient if she needed a letter to return to work. State she is not ready to go back to work just yet but is hoping in the near future. States she does not need a letter at this time but will reach out to the office when needed. Allergies As of Date: 06/03/2024 Noted Allergy Reaction GABAPENTIN 12/26/2022 1 - Mental Status Change PREDNISONE 05/30/2006 1 - Mental Status Change Comments: FEELS LIKE I'M GOING NUTS CATS 12/27/2004 4 - Hives CIPROFLOXACIN 01/29/2011 11 - Vomiting Comments: States can take if she eats with it. DOGS 12/27/2004 4 - Hives GRASS POLLEN 12/27/2004 5 - Intolerance NIACIN 08/31/2005 2 - Rash 11 - Vomiting POLLEN 12/27/2004 4 - Hives TREES 12/27/2004 5 - Intolerance Date Reviewed: 06/03/2024 Reviewed by: Frankie Polanco MA - Fully Assessed Prescriptions as of 06/03/2024 - amoxicillin-clavulanate potassium (AUGMENTIN) 875-125 mg per tablet Take 1 tablet by mouth two times a day for 5 days. - spironolactone (ALDACTONE) 50 mg tablet Take 1 tablet by mouth two times a day. - ibuprofen (MOTRIN ORAL) Take 600 mg by mouth three times a day. - albuterol HFA (PROVENTIL HFA, VENTOLIN HFA) 90 mcg/actuation inhaler Inhale 2 Puffs as instructed every 4 hours as needed for wheezing/shortness of breath. - methocarbamol (ROBAXIN) 750 mg tablet Take 1 tablet by mouth three times a day as needed. - docusate sodium (COLACE) 100 mg capsule Take 1 capsule by mouth two times a day. - sennosides (SENNACON ORAL) Take 1 tablet by mouth once daily. - triamcinolone acetonide (NASACORT AQ NASAL) Use 1 [place] in the nose as needed (allergies). - fexofenadine (STANLEY) 180 mg tablet Take 180 mg by mouth once daily. - famotidine (PEPCID) 20 mg tablet Take 20 mg by mouth two times a day. Problem List As Of Date 06/03/2024 Noted Resolved Other acne [L70.8] 04/08/2005 09/16/2019 Other specified endocrine disorders [E34.8] 04/08/2005 09/16/2019 Cough [R05.9] 05/30/2006 09/16/2019 Allergy-induced asthma, mild intermittent, unco* 08/25/2023 Tobacco abuse [Z72.0] 04/11/2007 Duodenitis [K29.80] 09/14/2011 06/23/2021 Acute gastritis without mention of hemorrhage [*09/14/2011 06/23/2021 Neurodermatitis [L28.0] 04/22/2013 06/23/2021 Eczematous dermatitis [L30.9] 04/22/2013 06/23/2021 Pyoderma, unspecified [L08.0] 04/22/2013 09/16/2019 Impetigo [L01.00] 04/22/2013 09/16/2019 Pruritus [L29.9] 04/22/2013 09/16/2019 Excoriation [T14.8XXA] 04/22/2013 09/16/2019 Prurigo papule [L28.2] 04/22/2013 03/01/2022 Lichenification and lichen simplex chronicus [L*04/22/2013 06/23/2021 Xerosis cutis [L85.3] 04/22/2013 09/16/2019 Spinal stenosis, lumbar region with neurogenic *03/27/2015 Low back pain [M54.50] 09/14/2015 05/17/2016 Chronic pain [G89.29] 09/14/2015 05/17/2016 Facet arthropathy, lumbar [M47.816] 05/17/2016 03/01/2022 Chronic midline low back pain without sciatica *05/17/2016 03/01/2022 Acid reflux [K21.9] Hirsutism [L68.0] 09/16/2019 Elevated dehydroepiandrosterone (DHEA) level [R*09/16/2019 03/01/2022 Pure hypercholesterolemia [E78.00] 06/28/2021 Former smoker [Z87.891] 12/13/2021 08/25/2023 Post-operative state [Z98.890] 01/07/2022 03/01/2022 Thrombosis, iliac, 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] 02/15/2022 03/01/2022 Lumbar stenosis with neurogenic claudication [M*02/23/2022 Acute postoperative pain [G89.18] 02/23/2022 05/19/2022 Hypomagnesemia [E83.42] 02/24/2022 03/01/2022 Status post lumbar spinal fusion [Z98.1] 02/24/2022 Poor compliance [Z91.199] 02/28/2022 08/25/2023 Orthopedic aftercare [Z47.89] 03/03/2022 08/25/2023 Suicidal ideation [R45.851] 03/03/2022 07/04/2022 Generalized weakness [R53.1] 03/05/2022 08/25/2023 History of DVT (deep vein thrombosis) [Z86.718] 03/05/2022 S/P hardware removal [Z98.890] 05/17/2022 08/25/2023 Asthma with chronic obstructive pulmonary disea*05/17/2022 PAD (peripheral artery disease) (HCC) [I73.9] 02/09/2023 Encounter Status:Closed by STANLEY DELUCA on 06/03/24 [facility] 05-31-2024 [facility] Office Visit (UCWSTR ) ELSY DINERO ([id number]) 1970 F FN Date Time Provider Department 05/31/24 3:30 PM URBANO AMAYA [facility] During your visit today, we recorded the following information about you: Temperature Pulse Respiration Blood pressure 97.3 degrees 96/minute 18/minute 115/74 Weight 72.2 kg Urbano Amaya MD 05/31/2024 3:45 PM Signed Patient presents with: Sinus Problem: Sinus congestion, pain and pressure, VERNON, ear pain x2 weeks HPI: Feeling s progressively worsening head congestion for a few weeks Positive symptoms: Earache, Sinus pressure, Nasal Congestion, post-nasal drainage, Headache, eye pain, hoarse voice Negative symptoms: Chest tightness, Fever, Chills, OTC: Stanley, Nasacort, allergy eyedrops. MEDICATIONS: Current Outpatient Medications Medication Sig spironolactone (ALDACTONE) 50 mg tablet Take 1 tablet by mouth two times a day. ibuprofen (MOTRIN ORAL) Take 600 mg by mouth three times a day. albuterol HFA (PROVENTIL HFA, VENTOLIN HFA) 90 mcg/actuation inhaler Inhale 2 Puffs as instructed every 4 hours as needed for wheezing/shortness of breath. methocarbamol (ROBAXIN) 750 mg tablet Take 1 tablet by mouth three times a day as needed. docusate sodium (COLACE) 100 mg capsule Take 1 capsule by mouth two times a day. sennosides (SENNACON ORAL) Take 1 tablet by mouth once daily. triamcinolone acetonide (NASACORT AQ NASAL) Use 1 [place] in the nose as needed (allergies). fexofenadine (STANLEY) 180 mg tablet Take 180 mg by mouth once daily. famotidine (PEPCID) 20 mg tablet Take 20 mg by mouth two times a day. No current facility-administered medications for this visit. ALLERGIES: ALLERGIES Allergen Reactions Gabapentin Mental Status Change Prednisone Mental Status Change FEELS LIKE I'M GOING NUTS Cats Hives Ciprofloxacin Vomiting States can take if she eats with it. Dogs Hives Grass Pollen Intolerance Niacin Rash, Vomiting Pollen Hives Trees Intolerance VITALS: BP 115/74 Pulse 96 Temp 36.3 ?C (97.3 ?F) Resp 18 Wt 72.2 kg (159 lb 2.8 oz) LMP 03/02/2015 SpO2 98% BMI 27.32 kg/m? PHYSICAL EXAM: GEN: mildly ill appearing, ambulates with a wheeled walker HEENT: PERRL, EOMI, conjunctiva clear Ears: canals clear. TMs without erythema, bulge, or effusion Sinuses: non-tender frontal sinus, pressure over maxillary sinuses Throat: moist mucous membranes, mild erythema, no exudate Neck: supple, no thyromegaly, no lymphadenopathy HEART: regular rate and rhythm, no murmurs LUNGS: clear to auscultation, no wheezes or crackles, no increased WOB ASSESSMENT/PLAN: 1. Acute non-recurrent sinusitis, unspecified location - ICD9: 461.9, ICD10: J01.90 Environmental allergy symptoms with possible secondary bacterial sinusitis - AMOXICILLIN 875 MG-POTASSIUM CLAVULANATE 125 MG TABLET Continue allergy regimen Urbano Amaya MD Allergies As of Date: 05/31/2024 Noted Allergy Reaction GABAPENTIN 12/26/2022 1 - Mental Status Change PREDNISONE 05/30/2006 1 - Mental Status Change Comments: FEELS LIKE I'M GOING NUTS CATS 12/27/2004 4 - Hives CIPROFLOXACIN 01/29/2011 11 - Vomiting Comments: States can take if she eats with it. DOGS 12/27/2004 4 - Hives GRASS POLLEN 12/27/2004 5 - Intolerance NIACIN 08/31/2005 2 - Rash 11 - Vomiting POLLEN 12/27/2004 4 - Hives TREES 12/27/2004 5 - Intolerance Date Reviewed: 05/31/2024 Reviewed by: Odilia Herrera MA - Fully Assessed Reason for Visit: Sinus Problem [99] Cmt: Sinus congestion, pain and pressure, VERNON, ear pain x2 weeks Primary Visit Diagnosis:Acute non-recurrent sinusitis, unspecified location [J01.90] Order(s):amoxicillin-clavulan ate potassium (AUGMENTIN) 875-125 mg per tabletTake 1 tablet by mouth two times a day for 5 days.Disp: 10 tabletRfl: 0 Prescriptions as of 05/31/2024 - amoxicillin-clavulanate potassium (AUGMENTIN) 875-125 mg per tablet Take 1 tablet by mouth two times a day for 5 days. - spironolactone (ALDACTONE) 50 mg tablet Take 1 tablet by mouth two times a day. - ibuprofen (MOTRIN ORAL) Take 600 mg by mouth three times a day. - albuterol HFA (PROVENTIL HFA, VENTOLIN HFA) 90 mcg/actuation inhaler Inhale 2 Puffs as instructed every 4 hours as needed for wheezing/shortness of breath. - methocarbamol (ROBAXIN) 750 mg tablet Take 1 tablet by mouth three times a day as needed. - docusate sodium (COLACE) 100 mg capsule Take 1 capsule by mouth two times a day. - sennosides (SENNACON ORAL) Take 1 tablet by mouth once daily. - triamcinolone acetonide (NASACORT AQ NASAL) Use 1 [place] in the nose as needed (allergies). - fexofenadine (STANLEY) 180 mg tablet Take 180 mg by mouth once daily. - famotidine (PEPCID) 20 mg tablet Take 20 mg by mouth two times a day. Problem List As Of Date 05/31/2024 Noted Resolved Other acne [L70.8] 04/08/2005 (more content not included)... Normal [facility] CNOVon 04-15-2024 CNOV Office Visit (ENWSTR ) ELSY DINERO ([id number]) 1970 F FNS Date Time Provider Department 04/15/24 10:40 AM LEXY FRANCIS ENWSTR During your visit today, we recorded the following information about you: Pulse Respiration Weight Height 74/minute 20/minute 71.6 kg 1.626 m Lexy Francis MD 04/15/2024 5:35 PM Signed [facility] Initial Clinic Visit Note Consulted by: Nusrat Alva, 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 Chief Complaint: Hirsutism HPI: This is a 53 year old female who presents with evaluation of hirsutism She has been on Spironolactone for many years Reports at age 18, her DHEA-s was high and was started on this medication. She reports stopping the medication when and breast feeding. Per chart review and confirming from patient, she restarted spironolactone in 2014 after checking labs and DHEA-s was found to be high in 300s She reports still having facial hair on chin. She would like to check her hormones as she is menopausal and does not want to use the medication if she does not have to. She thinks her weight gain is due to hormones being abnormal, and would like to know if aldactone has any effect of bone density She has 4 back surgeries with fusions in the last 2.5 years. Not on any exercise She had menopause in late 40s, rep[orts her menarche was at a younger age as well PAST MEDICAL HISTORY: PAST MEDICAL HISTORY No date: Acid reflux 09/14/2011: Acute gastritis without mention of hemorrhage No date: Allergy-induced asthma, mild intermittent, uncomplicated No date: Asthma 05/17/2016: Chronic midline low back pain without sciatica 09/14/2011: Duodenitis No date: Duodenitis without mention of hemorrhage 05/17/2016: Facet arthropathy, lumbar No date: Hemorrhage of gastrointestinal tract, unspecified 09/16/2019: Hirsutism 06/28/2021: Pure hypercholesterolemia 10/02/2016: Recovering alcoholic (HCC) 03/27/2015: Spinal stenosis, lumbar region, without neurogenic claudication 03/03/2022: Suicidal ideation 04/11/2007: Tobacco use disorder 01/07/2022: Vascular occlusion Comment: Intraoperative L common iliac artery occlusion PAST SURGICAL HISTORY: PAST SURGICAL HISTORY 05/17/2022: ARTHROSCOPIC REMOVAL HARDWARE DEEP Comment: removal of iliac screws 09/14/2011: ESOPHAGOGASTRODUODENOSCOPY TRANSORAL DIAGNOSTIC Comment: EGD 01/07/2022: ILIAC REVASC ADD-ON; Left Comment: L Common Iliac Artery endarterectomy 02/23/2022: LUMBAR SPINE FUSION COMBINED Comment: L2 to ilium instrumented fusion, L3, 4 and 5 laminectomy, L2-3, 3-4 and L5-S1 transforaminal lumbar interbody fusion. 01/07/2022: LUMBAR SPINE FUSION,ANTER APPRCH Comment: ALIF L4-L5. 04/29/2012: PAST SURGICAL HISTORY OF Comment: excision of back lump 09/14/2011: SIGMOIDOSCOPY FLX DX W/COLLJ SPEC BR/WA IF PFRMD Comment: Sigmoidoscopy, flexible FAMILY HISTORY: FAMILY HISTORY Problem Relation Age of Onset GI Mother colon polyps Cancer Mother Lung/Uterine/ cervical Allergies Mother GI Father colon polyps Diabetes Father Coronary Artery Disease Father Stents Heart Father age 85 Dementia Father No Known Problems Sister No Known Problems Sister Diabetes Brother Kidney Disease Brother dialysis Heart Failure Brother Allergies Daughter Heart Daughter PDA closure Allergies Daughter Breast Cancer Maternal Grandmother Allergies Maternal Grandfather Breast Cancer Paternal Grandmother Allergies Paternal Grandmother Diabetes Paternal Grandfather Anesthesia Problems No Family History Anesthesia No Family History SOCIAL HISTORY: Social History Tobacco Use Smoking status: Former Current packs/day: 0.00 Average packs/day: 2.0 packs/day for 38.0 years (76.0 ttl pk-yrs) Types: Cigarettes Start date: 07/10/1985 Quit date: 07/10/2023 Years since quittin.7 Smokeless tobacco: Never Tobacco comments: started age 13. Resumed 1 PPD 10/2022 Vaping Use Vaping status: Never Used Substance Use Topics Alcohol use: Not Currently Comment: recovering since 2016. Drug use: Not Currently Comment: experimented in 20s MEDICATIONS: Current Outpatient Medications Medication Sig ibuprofen (MOTRIN ORAL) Take 600 mg by mouth three times a day. spironolactone (ALDACTONE) 50 mg tablet Take 1 tablet by mouth two times a day. albuterol HFA (PROVENTIL HFA, VENTOLIN HFA) 90 mcg/actuation inhaler Inhale 2 Puffs as instructed every 4 hours as needed for wheezing/shortness of breath. methocarbamol (ROBAXIN) 750 mg tablet Take 1 tablet by mouth three times a day as needed. docusate sodium (COLACE) 100 mg capsule Take 1 capsule by mouth two times a day. sennosides (SENNACON ORAL) Take 1 tablet by mouth once daily. triamcinolone acetonide (NASACORT AQ NASAL) Use 1 [place] in the nose. qAM as needed for allergies Patient should start (more content not included)... Normal [facility] CNOVon 04-04-2024 CNOV Office Visit (INTMWS ) ELSY DINERO ([id number]) 1970 F FNS Date Time Provider Department 04/04/24 1:00 PM NUSRAT ALVA INTMWS During your visit today, we recorded the following information about you: Pulse Respiration Blood pressure Weight 89/minute 16/minute 114/72 71.1 kg Height 1.635 m Nusrat Alva, 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 04/04/2024 1:35 PM Signed CC: Patient presents with: Yearly Exam HPI Elsy Dinero is a 53 year old female who presents today for above. Exercise: walks, goes to physical therapy, does home PT exercises Diet: Watches diet for salt (salty snacks, added salt, processed frozen/canned foods), sugary/sweet snacks, unhealthy fats: Yes GERD- Symptoms include heartburn, burning in epigastrum, and reflux Symptoms are precipitated with nothing Alleviated with nothing. Denies cough, wheezing, weight loss, dysphagia, black stools, hematemesis, diarrhea, constipation, and history of PUD, upper GI bleed, and Recinos's esophagus. Alcohol, tobacco, significant amounts of caffeine or NSAIDS: Heavy smoker Previous studies include EGD and sigmoidoscopy. Asthma-daily symptoms during allergy season Nocturnal Symptoms: Yes Asthma is not limiting daily activities or exercise. Current pulmonary medications: albuterol as needed Recent exacerbations: Yes Hirsutism: diagnosed in 2015 with elevated DHEA levels. Treated with Aldactone which she is still taking. Denies side effects. Denies unusual hair growth or breakouts. Would like levels rechecked. Review of Systems Constitutional: Negative for chills, fever and unexpected weight change. Cardiovascular: Negative for chest pain, palpitations and leg swelling. PAST MEDICAL HISTORY No date: Acid reflux 09/14/2011: Acute gastritis without mention of hemorrhage No date: Allergy-induced asthma, mild intermittent, uncomplicated No date: Asthma 05/17/2016: Chronic midline low back pain without sciatica 09/14/2011: Duodenitis No date: Duodenitis without mention of hemorrhage 05/17/2016: Facet arthropathy, lumbar No date: Hemorrhage of gastrointestinal tract, unspecified 09/16/2019: Hirsutism 06/28/2021: Pure hypercholesterolemia 10/02/2016: Recovering alcoholic (HCC) 03/27/2015: Spinal stenosis, lumbar region, without neurogenic claudication 03/03/2022: Suicidal ideation 04/11/2007: Tobacco use disorder 01/07/2022: Vascular occlusion Comment: Intraoperative L common iliac artery occlusion PAST SURGICAL HISTORY 05/17/2022: ARTHROSCOPIC REMOVAL HARDWARE DEEP Comment: removal of iliac screws 09/14/2011: ESOPHAGOGASTRODUODENOSCOPY TRANSORAL DIAGNOSTIC Comment: EGD 01/07/2022: ILIAC REVASC ADD-ON; Left Comment: L Common Iliac Artery endarterectomy 02/23/2022: LUMBAR SPINE FUSION COMBINED Comment: L2 to ilium instrumented fusion, L3, 4 and 5 laminectomy, L2-3, 3-4 and L5-S1 transforaminal lumbar interbody fusion. 01/07/2022: LUMBAR SPINE FUSION,ANTER APPRCH Comment: ALIF L4-L5. 04/29/2012: PAST SURGICAL HISTORY OF Comment: excision of back lump 09/14/2011: SIGMOIDOSCOPY FLX DX W/COLLJ SPEC BR/WA IF PFRMD Comment: Sigmoidoscopy, flexible ALLERGIES Prednisone, Zyban [Bupropion], Cats, Dogs, Niacin, Pollen, Gabapentin, Ciprofloxacin, Grass Pollen, and Trees MEDICATIONS ibuprofen (MOTRIN ORAL) Take 600 mg by mouth three times a day. spironolactone (ALDACTONE) 50 mg tablet Take 1 tablet by mouth two times a day. methocarbamol (ROBAXIN) 750 mg tablet Take 1 tablet by mouth three times a day as needed. docusate sodium (COLACE) 100 mg capsule Take 1 capsule by mouth two times a day. albuterol HFA (PROVENTIL HFA, VENTOLIN HFA) 90 mcg/actuation inhaler Inhale 2 Puffs as instructed every 4 hours as needed for wheezing/shortness of breath. sennosides (SENNACON ORAL) Take 1 tablet by mouth once daily. triamcinolone acetonide (NASACORT AQ NASAL) Use 1 [place] in the nose. qAM as needed for allergies Patient should start on August 29, 2023. fexofenadine (STANLEY) 180 mg tablet Take 180 mg by mouth once daily. famotidine (PEPCID ORAL) Take 20 mg by mouth two times a day. Patient should start on August 29, 2023. Lactobacillus acidophilus (FLORAJEN ACIDOPHILUS) 20 billion cell capsule Take 1 capsule by mouth once daily. acetaminophen (TYLENOL) 500 mg tablet Take 2 tablets by mouth every 8 hours. polyethylene glycol 3350 17 gram packet Take 1 Packet by mouth once daily. Dissolve dose in 4 - 8 ounces of liquid and take as directed. FAMILY HISTORY Problem Relation Age of Onset GI Mother colon polyps Cancer Mother Lung/Uterine/ cervical Allergies Mother GI Father colon polyps Diabetes Father Coronary Artery Disease Father Stents Heart Father age 85 Dementia Father No Known Problems Sister No Known Problems Sister Diabetes Brother Kidney Disease Brother dialysis Heart Failure (more content not included)... [facility] ([id number]) 1970 F FNS Date Time Provider Department 04/02/24 AFRICA CABA [facility] During your visit today, we recorded the following information about you: Africa Caba PA 04/02/2024 7:08 AM Signed Negative for COVID flu RSV Francesco Nunez MA 04/02/2024 8:51 AM Signed Patient reviewed in [facility]. Francesco Nunez MA Allergies As of Date: 04/02/2024 Noted Allergy Reaction PREDNISONE 05/30/2006 1 - Mental Status Change Comments: FEELS LIKE I'M GOING NUTS ZYBAN (BUPROPION) 06/23/2021 1 - Mental Status Change Comments: Suicidal thoughts CATS 12/27/2004 4 - Hives DOGS 12/27/2004 4 - Hives NIACIN 08/31/2005 2 - Rash 11 - Vomiting POLLEN 12/27/2004 4 - Hives GABAPENTIN 12/26/2022 1 - Mental Status Change CIPROFLOXACIN 01/29/2011 11 - Vomiting Comments: States can take if she eats with it. GRASS POLLEN 12/27/2004 5 - Intolerance TREES 12/27/2004 5 - Intolerance Date Reviewed: 04/01/2024 Reviewed by: Dania Hernandez MA - Fully Assessed Reason for Visit: Results [95] Prescriptions as of 04/02/2024 - spironolactone (ALDACTONE) 50 mg tablet Take 1 tablet by mouth two times a day. - methocarbamol (ROBAXIN) 750 mg tablet Take 1 tablet by mouth three times a day as needed. - Lactobacillus acidophilus (FLORAJEN ACIDOPHILUS) 20 billion cell capsule Take 1 capsule by mouth once daily. - acetaminophen (TYLENOL) 500 mg tablet Take 2 tablets by mouth every 8 hours. - docusate sodium (COLACE) 100 mg capsule Take 1 capsule by mouth two times a day. - polyethylene glycol 3350 17 gram packet Take 1 Packet by mouth once daily. Dissolve dose in 4 - 8 ounces of liquid and take as directed. - albuterol HFA (PROVENTIL HFA, VENTOLIN HFA) 90 mcg/actuation inhaler Inhale 2 Puffs as instructed every 4 hours as needed for wheezing/shortness of breath. - sennosides (SENNACON ORAL) Take 1 tablet by mouth once daily. - triamcinolone acetonide (NASACORT AQ NASAL) Use 1 [place] in the nose. qAM as needed for allergies Patient should start on August 29, 2023. - fexofenadine (STANLEY) 180 mg tablet Take 180 mg by mouth once daily. - famotidine (PEPCID ORAL) Take 20 mg by mouth two times a day. Patient should start on August 29, 2023. Problem List As Of Date 04/02/2024 Noted Resolved Other acne [L70.8] 04/08/2005 09/16/2019 Other specified endocrine disorders [E34.8] 04/08/2005 09/16/2019 Cough [R05.9] 05/30/2006 09/16/2019 Allergy-induced asthma, mild intermittent, unco* 08/25/2023 Tobacco abuse [Z72.0] 04/11/2007 Duodenitis [K29.80] 09/14/2011 06/23/2021 Acute gastritis without mention of hemorrhage [*09/14/2011 06/23/2021 Neurodermatitis [L28.0] 04/22/2013 06/23/2021 Eczematous dermatitis [L30.9] 04/22/2013 06/23/2021 Pyoderma, unspecified [L08.0] 04/22/2013 09/16/2019 Impetigo [L01.00] 04/22/2013 09/16/2019 Pruritus [L29.9] 04/22/2013 09/16/2019 Excoriation [T14.8XXA] 04/22/2013 09/16/2019 Prurigo papule [L28.2] 04/22/2013 03/01/2022 Lichenification and lichen simplex chronicus [L*04/22/2013 06/23/2021 Xerosis cutis [L85.3] 04/22/2013 09/16/2019 Spinal stenosis, lumbar region with neurogenic *03/27/2015 Low back pain [M54.50] 09/14/2015 05/17/2016 Chronic pain [G89.29] 09/14/2015 05/17/2016 Facet arthropathy, lumbar [M47.816] 05/17/2016 03/01/2022 Chronic midline low back pain without sciatica *05/17/2016 03/01/2022 Acid reflux [K21.9] Hirsutism [L68.0] 09/16/2019 Elevated dehydroepiandrosterone (DHEA) level [R*09/16/2019 03/01/2022 Pure hypercholesterolemia [E78.00] 06/28/2021 Former smoker [Z87.891] 12/13/2021 08/25/2023 Post-operative state [Z98.890] 01/07/2022 03/01/2022 Thrombosis, iliac, 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] 02/15/2022 03/01/2022 Lumbar stenosis with neurogenic claudication [M*02/23/2022 Acute postoperative pain [G89.18] 02/23/2022 05/19/2022 Hypomagnesemia [E83.42] 02/24/2022 03/01/2022 Status post lumbar spinal fusion [Z98.1] 02/24/2022 Poor compliance [Z91.199] 02/28/2022 08/25/2023 Orthopedic aftercare [Z47.89] 03/03/2022 08/25/2023 Suicidal ideation [R45.851] 03/03/2022 07/04/2022 Generalized weakness [R53.1] 03/05/2022 08/25/2023 History of DVT (deep vein thrombosis) [Z86.718] 03/05/2022 S/P hardware removal [Z98.890] 05/17/2022 08/25/2023 Asthma with chronic obstructive pulmonary disea*05/17/2022 PAD (peripheral artery disease) ([facility]) [I73.9] 02/09/2023 Encounter Status:Closed by FRANCESCO NUNEZ on 04/02/24 [facility] CNOVon 04-01-2024 CNOV Office Visit (UCWSTR ) ELSY DINERO ([id number]) 1970 F FNS Date Time Provider Department 04/01/24 6:15 PM [facility] During your visit today, we recorded the following information about you: Temperature Pulse Respiration Blood pressure 98.6 degrees 95/minute 21/minute 110/52 Weight 72.2 kg [place] Caba [place] 04/01/2024 6:36 PM Signed This note was created using NoteWriter. Subjective Elsy Dinero is a 53 year old female. HPI 53-year-old female presents for exposure to COVID. Patient states she was exposed to COVID 2 days ago. She does have postnasal drainage and nasal congestion. She states that she has seasonal allergies, so thought it might be due to this, but with exposure, wanted tested for COVID. She has mild cough for about 2 days. No fevers. No vomiting or diarrhea. No chest pain or shortness of breath. She does have history of asthma and uses her inhaler. Has not had to increase inhaler use. No other complaint. PAST MEDICAL HISTORY No date: Acid reflux 09/14/2011: Acute gastritis without mention of hemorrhage No date: Allergy-induced asthma, mild intermittent, uncomplicated No date: Asthma 05/17/2016: Chronic midline low back pain without sciatica 09/14/2011: Duodenitis No date: Duodenitis without mention of hemorrhage 05/17/2016: Facet arthropathy, lumbar No date: Hemorrhage of gastrointestinal tract, unspecified 09/16/2019: Hirsutism 06/28/2021: Pure hypercholesterolemia 10/02/2016: Recovering alcoholic (HCC) 03/27/2015: Spinal stenosis, lumbar region, without neurogenic claudication 03/03/2022: Suicidal ideation 04/11/2007: Tobacco use disorder 01/07/2022: Vascular occlusion Comment: Intraoperative L common iliac artery occlusion PAST SURGICAL HISTORY 05/17/2022: ARTHROSCOPIC REMOVAL HARDWARE DEEP Comment: removal of iliac screws 09/14/2011: ESOPHAGOGASTRODUODENOSCOPY TRANSORAL DIAGNOSTIC Comment: EGD 01/07/2022: ILIAC REVASC ADD-ON; Left Comment: L Common Iliac Artery endarterectomy 02/23/2022: LUMBAR SPINE FUSION COMBINED Comment: L2 to ilium instrumented fusion, L3, 4 and 5 laminectomy, L2-3, 3-4 and L5-S1 transforaminal lumbar interbody fusion. 01/07/2022: LUMBAR SPINE FUSION,ANTER APPRCH Comment: ALIF L4-L5. 04/29/2012: PAST SURGICAL HISTORY OF Comment: excision of back lump 09/14/2011: SIGMOIDOSCOPY FLX DX W/COLLJ SPEC BR/WA IF PFRMD Comment: Sigmoidoscopy, flexible ALLERGIES Prednisone, Zyban [Bupropion], Cats, Dogs, Niacin, Pollen, Gabapentin, Ciprofloxacin, Grass Pollen, and Trees MEDICATIONS spironolactone (ALDACTONE) 50 mg tablet Take 1 tablet by mouth two times a day. methocarbamol (ROBAXIN) 750 mg tablet Take 1 tablet by mouth three times a day as needed. docusate sodium (COLACE) 100 mg capsule Take 1 capsule by mouth two times a day. albuterol HFA (PROVENTIL HFA, VENTOLIN HFA) 90 mcg/actuation inhaler Inhale 2 Puffs as instructed every 4 hours as needed for wheezing/shortness of breath. sennosides (SENNACON ORAL) Take 1 tablet by mouth once daily. triamcinolone acetonide (NASACORT AQ NASAL) Use 1 [place] in the nose. qAM as needed for allergies Patient should start on August 29, 2023. fexofenadine (STANLEY) 180 mg tablet Take 180 mg by mouth once daily. famotidine (PEPCID ORAL) Take 20 mg by mouth two times a day. Patient should start on August 29, 2023. Lactobacillus acidophilus (FLORAJEN ACIDOPHILUS) 20 billion cell capsule Take 1 capsule by mouth once daily. acetaminophen (TYLENOL) 500 mg tablet Take 2 tablets by mouth every 8 hours. polyethylene glycol 3350 17 gram packet Take 1 Packet by mouth once daily. Dissolve dose in 4 - 8 ounces of liquid and take as directed. FAMILY HISTORY Problem Relation Age of Onset GI Mother colon polyps Cancer Mother Lung/Uterine/ cervical Allergies Mother GI Father colon polyps Diabetes Father Coronary Artery Disease Father Stents Heart Father age 85 Dementia Father No Known Problems Sister No Known Problems Sister Diabetes Brother Kidney Disease Brother dialysis Heart Failure Brother Allergies Daughter Heart Daughter PDA closure Allergies Daughter Breast Cancer Maternal Grandmother Allergies Maternal Grandfather Breast Cancer Paternal Grandmother Allergies Paternal Grandmother Diabetes Paternal Grandfather Anesthesia Problems No Family History Anesthesia No Family History Social History Tobacco Use Smoking status: Former Current packs/day: 0.00 Average packs/day: 2.0 packs/day for 38.0 years (76.0 ttl pk-yrs) Types: Cigarettes Start date: 07/10/1985 Quit date: 07/10/2023 Years since quittin.7 Smokeless tobacco: Never Tobacco comments: started age 13. Resumed 1 10/2022 Vaping Use Vaping status: Never Used Substance Use Topics Alcohol use: Not Currently Comment: recovering sin (more content not included)... Normal [facility] COVID AND INFLUENZA A/B AND RSV NAAT, ROUTINEon 04-01-2024 SARS-CoV-2 (COVID-19) RNA LV+probe Ql (Unsp spec) COVID 19 RESULT: Not detected The method used is RT-PCR or an equivalent NAAT method. Reference Range (the expected result in uninfected individuals): Not detected INFLUENZA A PCR: Not detected INFLUENZA B PCR: Not detected RSV PCR: Not detected Normal [facility] Comment on above: Performed By: #### C VFLRS ####[facility] LABCLIA [id number] [address] OF [facility] CNPVika 03-06-2024 CNPN Telephone (NEADFV) ELSY DINERO ([id number]) 1970 F FNS Date Time Provider Department 03/06/24 AMBROSE BIRCH NESTEVEFV During your visit today, we recorded the following information about you: Deja Pimentel 03/06/2024 3:51 PM Signed [facility] Services evaluation scanned to Epic Allergies As of Date: 03/06/2024 Noted Allergy Reaction PREDNISONE 05/30/2006 1 - Mental Status Change Comments: FEELS LIKE I'M GOING NUTS ZYBAN (BUPROPION) 06/23/2021 1 - Mental Status Change Comments: Suicidal thoughts CATS 12/27/2004 4 - Hives DOGS 12/27/2004 4 - Hives NIACIN 08/31/2005 2 - Rash 11 - Vomiting POLLEN 12/27/2004 4 - Hives GABAPENTIN 12/26/2022 1 - Mental Status Change CIPROFLOXACIN 01/29/2011 11 - Vomiting Comments: States can take if she eats with it. 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 - methocarbamol (ROBAXIN) 750 mg tablet Take 1 tablet by mouth three times a day as needed. - Lactobacillus acidophilus (FLORAJEN ACIDOPHILUS) 20 billion cell capsule Take 1 capsule by mouth once daily. - acetaminophen (TYLENOL) 500 mg tablet Take 2 tablets by mouth every 8 hours. - docusate sodium (COLACE) 100 mg capsule Take 1 capsule by mouth two times a day. - polyethylene glycol 3350 17 gram packet Take 1 Packet by mouth once daily. Dissolve dose in 4 - 8 ounces of liquid and take as directed. - albuterol HFA (PROVENTIL HFA, VENTOLIN HFA) 90 mcg/actuation inhaler Inhale 2 Puffs as instructed every 4 hours as needed for wheezing/shortness of breath. - sennosides (SENNACON ORAL) Take 1 tablet by mouth once daily. - triamcinolone acetonide (NASACORT AQ NASAL) Use 1 [place] in the nose. qAM as needed for allergies Patient should start on August 29, 2023. - fexofenadine (STANLEY) 180 mg tablet Take 180 mg by mouth once daily. - famotidine (PEPCID ORAL) Take 20 mg by mouth two times a day. Patient should start on August 29, 2023. Problem List As Of Date 03/06/2024 Noted Resolved Other acne [L70.8] 04/08/2005 09/16/2019 Other specified endocrine disorders [E34.8] 04/08/2005 09/16/2019 Cough [R05.9] 05/30/2006 09/16/2019 Allergy-induced asthma, mild intermittent, unco* 08/25/2023 Tobacco abuse [Z72.0] 04/11/2007 Duodenitis [K29.80] 09/14/2011 06/23/2021 Acute gastritis without mention of hemorrhage [*09/14/2011 06/23/2021 Neurodermatitis [L28.0] 04/22/2013 06/23/2021 Eczematous dermatitis [L30.9] 04/22/2013 06/23/2021 Pyoderma, unspecified [L08.0] 04/22/2013 09/16/2019 Impetigo [L01.00] 04/22/2013 09/16/2019 Pruritus [L29.9] 04/22/2013 09/16/2019 Excoriation [T14.8XXA] 04/22/2013 09/16/2019 Prurigo papule [L28.2] 04/22/2013 03/01/2022 Lichenification and lichen simplex chronicus [L*04/22/2013 06/23/2021 Xerosis cutis [L85.3] 04/22/2013 09/16/2019 Spinal stenosis, lumbar region with neurogenic *03/27/2015 Low back pain [M54.50] 09/14/2015 05/17/2016 Chronic pain [G89.29] 09/14/2015 05/17/2016 Facet arthropathy, lumbar [M47.816] 05/17/2016 03/01/2022 Chronic midline low back pain without sciatica *05/17/2016 03/01/2022 Acid reflux [K21.9] Hirsutism [L68.0] 09/16/2019 Elevated dehydroepiandrosterone (DHEA) level [R*09/16/2019 03/01/2022 Pure hypercholesterolemia [E78.00] 06/28/2021 Former smoker [Z87.891] 12/13/2021 08/25/2023 Post-operative state [Z98.890] 01/07/2022 03/01/2022 Thrombosis, iliac, 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] 02/15/2022 03/01/2022 Lumbar stenosis with neurogenic claudication [M*02/23/2022 Acute postoperative pain [G89.18] 02/23/2022 05/19/2022 Hypomagnesemia [E83.42] 02/24/2022 03/01/2022 Status post lumbar spinal fusion [Z98.1] 02/24/2022 Poor compliance [Z91.199] 02/28/2022 08/25/2023 Orthopedic aftercare [Z47.89] 03/03/2022 08/25/2023 Suicidal ideation [R45.851] 03/03/2022 07/04/2022 Generalized weakness [R53.1] 03/05/2022 08/25/2023 History of DVT (deep vein thrombosis) [Z86.718] 03/05/2022 S/P hardware removal [Z98.890] 05/17/2022 08/25/2023 Asthma with chronic obstructive pulmonary disea*05/17/2022 PAD (peripheral artery disease) ([facility]) [I73.9] 02/09/2023 Encounter Status:Closed by OSMANI CHANG on 03/07/24 [facility] PT D/C Summary (1)on 024 PT D/C Summary (1) [facility] Physical [facility] [address] [place] [address] / REHABILITATION SERVICES DISCHARGE SUMMARY MR#: [id number] Acct: [id number] Name: ELSY DINERO Rep #: [id number] : 1970 53 From: Rudi Madrigal DPT, OCS, CSCS Referring Dr.: OUT OF TOWN DOCTOR Status: REG R CR Insurance: [facility] SELF PAY INSURANCE Discharge Summary D/C summary: It has been my pleasure to treat ELSY DINERO referred by AMBROSE BIRCH, with the diagnosis of redo LB fusion 08/23/23 for a total of 39 visit(s). Discharge Date: 03/04/24 Please see the following information for a summary of their discharge status. Subjective Subjective: Doing the pool regularly. R hip still spasms sometimes with legs apart exercises. Enjoys the machine worlout as wella s the new free Swipe.to workout and will continue them. To doctor in may at neuro. Spasms with legs apart and one time in the last week02/13 and lasted a couple days. Home activities: pretty normal but avoids weeding, wants to get back to painting her rooms. Using wh walker for confidence away from home. Uses hospital bed at home. No AD needed around house. Pain LBP: Pain Intensity (Out of 10): 3 Overall Improvement % Improvement: 70 Objective Objective/Function: Good LB AROM without pain today, just stretching in LB especially with flexion, ext adn flexion min to mod limited. walking well without aD in PT today, using wh walker still in community. Goals Goal 1:: pain 3/10 at worst and intermittent, 75% better Goal Progress: Not Progressing Goal 2:: Patient ambulate community without AD without increased pain Goal Progress: Goal Met Goal 3:: Back paion 2/10 at worst into hip and manageable with HEP with less manual Goal Progress: Not Progressing Goal 4:: FGA Goal Progress: Goal Met Goal 5:: I appropr pool and gym based ex for management Goal Progress: Goal Met Goal 6:: Pt have pain 2/10 at worst and be 85% better with no LB ROM limitations except minor extension and wean down to 1x/weeek manual therapy with plan for exit strategy. Goal Progress: inconsistent Plan Plan: d/c to HEP and gym and pool. to doctor in May D/C Information Discharge Comments: Pt to continue via gym, pool and HEP. Sees doctor in May. d/c sentence: If there are questions or concerns regarding this patient's physical therapy, please feel free to call me at [phone]. Thank you for the referral of this patient. Sincerely, Rudi Madrigal, DPT, OCS, CSCS Balance/Gait/Functional tests Balance/Special Test Scores Functional Gait Assessment Score: 26 % Disability: 13.3400 Oswestry Low Back Score: 23 Improvement % Improvement: 70 03/04/24 1047 CC: Dr. Elvin Diaz MD; AMBROSE BIRCH CHIP Signed Normal [facility] 02-20-2024 [facility] Telephone (APOLONIAFV) ELSY DINERO ([id number]) 1970 F FNS Date Time Provider Department 02/20/24 AMBROSE BIRCH During your visit today, we recorded the following information about you: Deja Pimentel 02/20/2024 1:57 PM Signed [facility] Physical [facility] Re[facility]uation [facility] and signature Stanley Deluca, FRANSISCO 02/20/2024 2:34 PM Signed Forms printed for review. Stanley Deluca RN 02/21/2024 7:52 AM Signed Forms completed and faxed with confirmation of receipt. Anna Santoyo 02/21/2024 10:38 AM Signed Received completed [facility] POC, in chart for records. Allergies As of Date: 02/20/2024 Noted Allergy Reaction PREDNISONE 05/30/2006 1 - Mental Status Change Comments: FEELS LIKE I'M GOING NUTS ZYBAN (BUPROPION) 06/23/2021 1 - Mental Status Change Comments: Suicidal thoughts CATS 12/27/2004 4 - Hives DOGS 12/27/2004 4 - Hives NIACIN 08/31/2005 2 - Rash 11 - Vomiting POLLEN 12/27/2004 4 - Hives GABAPENTIN 12/26/2022 1 - Mental Status Change CIPROFLOXACIN 01/29/2011 11 - Vomiting Comments: States can take if she eats with it. 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 - spironolactone (ALDACTONE) 50 mg tablet Take 1 tablet by mouth two times a day. - Lactobacillus acidophilus (FLORAJEN ACIDOPHILUS) 20 billion cell capsule Take 1 capsule by mouth once daily. - acetaminophen (TYLENOL) 500 mg tablet Take 2 tablets by mouth every 8 hours. - docusate sodium (COLACE) 100 mg capsule Take 1 capsule by mouth two times a day. - polyethylene glycol 3350 17 gram packet Take 1 Packet by mouth once daily. Dissolve dose in 4 - 8 ounces of liquid and take as directed. - albuterol HFA (PROVENTIL HFA, VENTOLIN HFA) 90 mcg/actuation inhaler Inhale 2 Puffs as instructed every 4 hours as needed for wheezing/shortness of breath. - sennosides (SENNACON ORAL) Take 1 tablet by mouth once daily. - triamcinolone acetonide (NASACORT AQ NASAL) Use 1 [place] in the nose. qAM as needed for allergies Patient should start on August 29, 2023. - fexofenadine (STANLEY) 180 mg tablet Take 180 mg by mouth once daily. - famotidine (PEPCID ORAL) Take 20 mg by mouth two times a day. Patient should start on August 29, 2023. Problem List As Of Date 02/20/2024 Noted Resolved Other acne [L70.8] 04/08/2005 09/16/2019 Other specified endocrine disorders [E34.8] 04/08/2005 09/16/2019 Cough [R05.9] 05/30/2006 09/16/2019 Allergy-induced asthma, mild intermittent, unco* 08/25/2023 Tobacco abuse [Z72.0] 04/11/2007 Duodenitis [K29.80] 09/14/2011 06/23/2021 Acute gastritis without mention of hemorrhage [*09/14/2011 06/23/2021 Neurodermatitis [L28.0] 04/22/2013 06/23/2021 Eczematous dermatitis [L30.9] 04/22/2013 06/23/2021 Pyoderma, unspecified [L08.0] 04/22/2013 09/16/2019 Impetigo [L01.00] 04/22/2013 09/16/2019 Pruritus [L29.9] 04/22/2013 09/16/2019 Excoriation [T14.8XXA] 04/22/2013 09/16/2019 Prurigo papule [L28.2] 04/22/2013 03/01/2022 Lichenification and lichen simplex chronicus [L*04/22/2013 06/23/2021 Xerosis cutis [L85.3] 04/22/2013 09/16/2019 Spinal stenosis, lumbar region with neurogenic *03/27/2015 Low back pain [M54.50] 09/14/2015 05/17/2016 Chronic pain [G89.29] 09/14/2015 05/17/2016 Facet arthropathy, lumbar [M47.816] 05/17/2016 03/01/2022 Chronic midline low back pain without sciatica *05/17/2016 03/01/2022 Acid reflux [K21.9] Hirsutism [L68.0] 09/16/2019 Elevated dehydroepiandrosterone (DHEA) level [R*09/16/2019 03/01/2022 Pure hypercholesterolemia [E78.00] 06/28/2021 Former smoker [Z87.891] 12/13/2021 08/25/2023 Post-operative state [Z98.890] 01/07/2022 03/01/2022 Thrombosis, iliac, 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] 02/15/2022 03/01/2022 Lumbar stenosis with neurogenic claudication [M*02/23/2022 Acute postoperative pain [G89.18] 02/23/2022 05/19/2022 Hypomagnesemia [E83.42] 02/24/2022 03/01/2022 Status post lumbar spinal fusion [Z98.1] 02/24/2022 Poor compliance [Z91.199] 02/28/2022 08/25/2023 Orthopedic aftercare [Z47.89] 03/03/2022 08/25/2023 Suicidal ideation [R45.851] 03/03/2022 07/04/2022 Generalized weakness [R53.1] 03/05/2022 08/25/2023 History of DVT (deep vein thrombosis) [Z86.718] 03/05/2022 S/P hardware removal [Z98.890] 05/17/2022 08/25/2023 Asthma with chronic obstructive pulmonary disea*05/17/2022 PAD (peripheral artery disease) (HCC) [I73.9] 02/09/2023 Encounter Status:Closed by STANLEY DELUCA on 02/21/24 [facility] Re-Evaluation - PT (1)on Re-Evaluation - PT (1) [facility] Physical [facility] [address] [place] [address] [address] [place] [address] / REEVALUATION / MEDICARE RECERTIFICATION PHYSICAL THERAPY MR#: [id number] Acct: [id number] Name: ELSY DINERO Rep #: [id number] : 1970 53 From: Rudi Madrigal DPT, OCS, CSCS Referring : OUT OF TOWN DOCTOR Status:REG RCR Insurance: [facility] SELF PAY INSURANCE Re-Evaluation Intro: AMBROSE BIRCH, It has been my pleasure to treat ELSY DINERO over the last 34 visits for redo LB fusion 08/23/23. Please see the progress note below for an update on the physical therapy plan of care! Subjective Subjective: I am so bored of this(the years long rehab process). Does not need muscle relaxer much anymore until recently. Doing pool ex with 5# weights now and increasing floor strengthening on machines. See doctor in May. Spine stimulator has been suggested. I can vaccuum it just hurts. Have been wroking out daiy in pool and gym and has not had to go to [place] to take care of Mom. Trip is 2.5 hrs and will probably do it soon. Has helped being at home and consistent with workout. Cleaning kitchen and going well. Activities: cannot fly to see DTR in [place]. Would love to get back to work at 180 if possible. Better than a month ago. Only using rollator for longer distance adn to hold he r bag. Much looser after getting in pool each day. Wants to do more exercises if possible. Objective Objective/Function: LB aROM min limitations in each direction and tightness in LB and posterior hips but no increased pain. walking well without rollator short distances today adn safe. Improving LEFS main new goal I with these new exercises for management. Fair prognosis. Plan Plan Plan: 2x/week for 5 visits to teach dumbbell based funcitonal and core ext and work to I to replace 1 or 2 days of her machine workout each week if tolerated. Give pics. Balance/Gait/Functional tests Balance/Special Test Scores Functional Gait Assessment Score: 26 % Disability: 13.3400 Oswestry Low Back Score: 23 Goals Goals Goal 1:: pain 3/10 at worst and intermittent, 75% better Goal Time Frame: 4-6 Weeks Goal Progress: Not Progressing Goal 2:: Patient ambulate community without AD without increased pain Goal Time Frame: 4-6 Weeks Goal Progress: Goal Met Goal 3:: Back paion 2/10 at worst into hip and manageable with HEP with less manual Goal Time Frame: 4-6 Weeks Goal Progress: Not Progressing Goal 4:: FGA Goal Time Frame: 4-6 Weeks Goal Progress: Goal Met Goal 5:: I appropr pool and gym based ex for management Goal Progress: Goal Met Goal 6:: Pt have pain 2/10 at worst and be 85% better with no LB ROM limitations except minor extension and wean down to 1x/weeek manual therapy with plan for exit strategy. Goal Time Frame: 4-6 Weeks Goal Progress: inconsistent Anticipated Interventions Anticipated Interventions Patient/Client Instruction: Educate patient on: Condition and Plan of Care For the Purpose of:: To decrease pain, To increase ROM, To improve nutrient delivery to tissue, To improve muscle performance and motor function, To increase tolerance to activity/condition/position and To improve gait and locomotor functions Therapeutic Exercise to Include: Strength training, Balance training, Coordination, Flexibilty training, In an aquatic setting, Passive ROM, Active ROM and Dynamic Lumbar Stabilization For the Purpose of:: To decrease pain, To increase ROM, To improve nutrient delivery to tissue, To improve muscle performance and motor function, To increase tolerance to activity/condition/position and To decrease level of supervision to perform tasks Re-Evaluation Ending Re-evaluation ending: Please do not hesitate to contact me at [phone] by phone or if you have questions or concerns regarding this new plan of care! Sincerely, Rudi Madrigal, DPT, OCS, CSCS 02/16/24 0952 CC: Dr. Elvin Diaz MD; AMBROSE BIRCH EBG Signed For Medicare only, by signing this I certify the plan of care. Physicians Signature Date [facility] 12-19-2023 [facility] Telephone (NSFRVW) ELSY DINERO ([id number]) 1970 F FNS Date Time Provider Department 12/19/23 AMBROSE BIRCH NSFRVW During your visit today, we recorded the following information about you: Anna Santoyo 12/19/2023 11:55 AM Signed Received [facility] PT report, in epic for review. Stanley Deluca RN 12/19/2023 12:55 PM Signed Forms printed for review. Stanley Deluca RN 12/20/2023 11:34 AM Signed Forms completed and faxed with confirmation of receipt. [place]. Anna Santoyo 12/20/2023 11:50 AM Signed Received Completed forms , for patient record. Allergies As of Date: 12/19/2023 Noted Allergy Reaction PREDNISONE 05/30/2006 1 - Mental Status Change Comments: FEELS LIKE I'M GOING NUTS ZYBAN (BUPROPION) 06/23/2021 1 - Mental Status Change Comments: Suicidal thoughts CATS 12/27/2004 4 - Hives DOGS 12/27/2004 4 - Hives NIACIN 08/31/2005 2 - Rash 11 - Vomiting POLLEN 12/27/2004 4 - Hives GABAPENTIN 12/26/2022 1 - Mental Status Change CIPROFLOXACIN 01/29/2011 11 - Vomiting Comments: States can take if she eats with it. [facility] 12/27/2004 5 - Intolerance TREES 12/27/2004 5 - Intolerance Date Reviewed: 12/04/2023 Reviewed by: Kassidy Leung MA - Fully Assessed Reason for Visit: Forms [913] Prescriptions as of 12/20/2023 - Lactobacillus acidophilus (FLORAJEN ACIDOPHILUS) 20 billion cell capsule Take 1 capsule by mouth once daily. - methocarbamol (ROBAXIN) 750 mg tablet Take 1 tablet by mouth three times a day as needed. - spironolactone (ALDACTONE) 50 mg tablet Take 1 tablet by mouth two times a day. - acetaminophen (TYLENOL) 500 mg tablet Take 2 tablets by mouth every 8 hours. - docusate sodium (COLACE) 100 mg capsule Take 1 capsule by mouth two times a day. - polyethylene glycol 3350 17 gram packet Take 1 Packet by mouth once daily. Dissolve dose in 4 - 8 ounces of liquid and take as directed. - albuterol HFA (PROVENTIL HFA, VENTOLIN HFA) 90 mcg/actuation inhaler Inhale 2 Puffs as instructed every 4 hours as needed for wheezing/shortness of breath. - sennosides (SENNACON ORAL) Take 1 tablet by mouth once daily. - triamcinolone acetonide (NASACORT AQ NASAL) Use 1 [place] in the nose. qAM as needed for allergies Patient should start on August 29, 2023. - fexofenadine (STANLEY) 180 mg tablet Take 180 mg by mouth once daily. - famotidine (PEPCID ORAL) Take 20 mg by mouth two times a day. Patient should start on August 29, 2023. Problem List As Of Date 12/19/2023 Noted Resolved Other acne [L70.8] 04/08/2005 09/16/2019 Other specified endocrine disorders [E34.8] 04/08/2005 09/16/2019 Cough [R05.9] 05/30/2006 09/16/2019 Allergy-induced asthma, mild intermittent, unco* 08/25/2023 Tobacco abuse [Z72.0] 04/11/2007 Duodenitis [K29.80] 09/14/2011 06/23/2021 Acute gastritis without mention of hemorrhage [*09/14/2011 06/23/2021 Neurodermatitis [L28.0] 04/22/2013 06/23/2021 Eczematous dermatitis [L30.9] 04/22/2013 06/23/2021 Pyoderma, unspecified [L08.0] 04/22/2013 09/16/2019 Impetigo [L01.00] 04/22/2013 09/16/2019 Pruritus [L29.9] 04/22/2013 09/16/2019 Excoriation [T14.8XXA] 04/22/2013 09/16/2019 Prurigo papule [L28.2] 04/22/2013 03/01/2022 Lichenification and lichen simplex chronicus [L*04/22/2013 06/23/2021 Xerosis cutis [L85.3] 04/22/2013 09/16/2019 Spinal stenosis, lumbar region with neurogenic *03/27/2015 Low back pain [M54.50] 09/14/2015 05/17/2016 Chronic pain [G89.29] 09/14/2015 05/17/2016 Facet arthropathy, lumbar [M47.816] 05/17/2016 03/01/2022 Chronic midline low back pain without sciatica *05/17/2016 03/01/2022 Acid reflux [K21.9] Hirsutism [L68.0] 09/16/2019 Elevated dehydroepiandrosterone (DHEA) level [R*09/16/2019 03/01/2022 Pure hypercholesterolemia [E78.00] 06/28/2021 Former smoker [Z87.891] 12/13/2021 08/25/2023 Post-operative state [Z98.890] 01/07/2022 03/01/2022 Thrombosis, iliac, 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] 02/15/2022 03/01/2022 Lumbar stenosis with neurogenic claudication [M*02/23/2022 Acute postoperative pain [G89.18] 02/23/2022 05/19/2022 Hypomagnesemia [E83.42] 02/24/2022 03/01/2022 Status post lumbar spinal fusion [Z98.1] 02/24/2022 Poor compliance [Z91.199] 02/28/2022 08/25/2023 Orthopedic aftercare [Z47.89] 03/03/2022 08/25/2023 Suicidal ideation [R45.851] 03/03/2022 07/04/2022 Generalized weakness [R53.1] 03/05/2022 08/25/2023 History of DVT (deep vein thrombosis) [Z86.718] 03/05/2022 S/P hardware removal [Z98.890] 05/17/2022 08/25/2023 Asthma with chronic obstructive pulmonary disea*05/17/2022 PAD (peripheral artery disease) (HCC) [I73.9] 02/09/2023 Encounter Status:Closed by STANLEY DELUCA on 12/19/23 [facility] Re-Evaluation - PT (1)on Re-Evaluation - PT (1) [facility] [address] [place] [address] / REEVALUATION / MEDICARE RECERTIFICATION PHYSICAL THERAPY MR#: [id number] Acct: [id number] Name: ELSY DINERO Rep #: [id number] : 1970 53 From: Rudi Madrigal DPT, OCS, CSCS Referring DrIlene: Status:REG RCR Insurance: [facility] SELF PAY INSURANCE Re-Evaluation Intro: AMBROSE BIRCH, It has been my pleasure to treat ELSY DINERO over the last 26 visits for redo LB fusion 08/23/23. Please see the progress note below for an update on the physical therapy plan of care! Subjective Subjective: Saw neuro last Monday and was pretty good. Said f/u 6 months and to keep going. Had eergency trip to [place] for mom last week. back hurt after all that 04/16 and slept for two days. Did get back to the pool each day. Gym was going OK until last week mom trip. Was busier than typical with mom last week adn 2.5 hr drivve is not good for her. Was doing well before that trip with 5/10 at most and tolerable. Using walker for longer walks not inside house. Objective Objective/Function: L/S ext R marlon epainful and min limited, L SB slightly painful, flexion and R sB is good Walking without ad I. Good balance but R ankle weak and has been for years. Better balance overall and walking short distances very well. Hesitant to stop manual as it has been very helpful over the last month with movement of spine and comfort. Plan Plan Plan: 2x/week for 2 weeks then 1x/week for 2 weeks to wean manual and ensure getting back to gym exercises afte trip to take care of mom. educated patient on exit strategy and weaning of manual in favor of ex management. New goals , fair prognosis Balance/Gait/Functional tests Balance/Special Test Scores Functional Gait Assessment Score: 26 % Disability: 13.3400 Oswestry Low Back Score: 28 Goals Goals Goal 1:: pain 3/10 at worst and intermittent, 75% better Goal Time Frame: 4-6 Weeks Goal Progress: 75%, 9/10 if overdoes it. Goal 2:: Patient ambulate community without AD without increased pain Goal Time Frame: 4-6 Weeks Goal Progress: only short distances. Goal 3:: Back paion 2/10 at worst into hip and manageable with HEP with less manual Goal Time Frame: 4-6 Weeks Goal Progress: Progressing, appropriate Goal 4:: FGA Goal Time Frame: 4-6 Weeks Goal Progress: Goal Met Goal 5:: I appropr pool and gym based ex for management Goal Progress: Goal Met Goal 6:: Pt have pain 2/10 at worst and be 85% better with no LB ROM limitations except minor extension and wean down to 1x/weeek manual therapy with plan for exit strategy. Goal Time Frame: 4-6 Weeks Goal Progress: NEW GOAL Anticipated Interventions Anticipated Interventions Patient/Client Instruction: Educate patient on: Condition and Plan of Care For the Purpose of:: To decrease pain, To increase ROM, To improve nutrient delivery to tissue, To improve muscle performance and motor function, To increase tolerance to activity/condition/position and To improve gait and locomotor functions Therapeutic Exercise to Include: Strength training, Balance training, Coordination, Flexibilty training, In an aquatic setting, Passive ROM, Active ROM and Dynamic Lumbar Stabilization For the Purpose of:: To decrease pain, To increase ROM, To improve nutrient delivery to tissue, To improve muscle performance and motor function, To increase tolerance to activity/condition/position and To decrease level of supervision to perform tasks Re-Evaluation Ending Re-evaluation ending: Please do not hesitate to contact me at [phone] by phone or if you have questions or concerns regarding this new plan of care! Sincerely, EARLE GunnT, OCS, CSCS 12/13/23 1248 CC: Dr. Elvin Diaz MD; AMBROSE BIRCH EBG Signed For Medicare only, by signing this I certify the plan of care. Physicians Signature Date Normal [facility] XR Lumbar spine AP and Later milind 11-30-2023 IMPRESSION: No acute bony finding. Primary Therapist: SARAHI Transcribe Date/Time: Nov 30 2023 1:36P Dictated by : STEPHANIE JACOBSON MD This examination was interpreted and the report reviewed and electronically signed by: STEPHANIE JACOBSON MD on Nov 30 2023 1:39PM [facility] DIVISION OF RADIOLOGY * * *Final Report* * * DATE OF EXAM: Nov 27 2023 10:48AM WOX 5229 - XR LUMBAR 2V AP/LAT / PROCEDURE REASON: Spinal stenosis, lumbar region with neurogenic claudication * * * * Physician Interpretation * * * * Lumbar spine HISTORY: 53 years old Clinical information: Spinal stenosis, lumbar region with neurogenic claudication 3 month follow up to lower back surgery TECHNIQUE: Images: XR LUMBAR 2V AP/LAT Comparison: 08/26/2023. RESULT: Findings: Stable findings of posterior fusion with pedicle screws/longitudinal stabilization rods L2-S1. Stable grade 2 spondylolisthesis L4-5. No significant change in radiopaque spacers at L2-3, L3-4, L4-5 and L5-S1 levels. DIVISION OF RADIOLOGY Provider, [facility] - 11/30/2023 * * *Final Report* * * DATE OF EXAM: Nov 27 2023 10:48AM WOX 5229 - XR LUMBAR 2V AP/LAT / PROCEDURE REASON: Spinal stenosis, lumbar region with neurogenic claudication * * * * Physician Interpretation * * * * Lumbar spine HISTORY: 53 years old Clinical information: Spinal stenosis, lumbar region with neurogenic claudication 3 month follow up to lower back surgery TECHNIQUE: Images: XR LUMBAR 2V AP/LAT Comparison: 08/26/2023. RESULT: Findings: Stable findings of posterior fusion with pedicle screws/longitudinal stabilization rods L2-S1. Stable grade 2 spondylolisthesis L4-5. No significant change in radiopaque spacers at L2-3, L3-4, L4-5 and L5-S1 levels. IMPRESSION IMPRESSION: No acute bony finding. Primary Therapist: SARAHI Transcribe Date/Time: Nov 30 2023 1:36P Dictated by : STEPHANIE JACOBSON MD This examination was interpreted and the report reviewed and electronically signed by: STEPHANIE JACOBSON MD on Nov 30 2023 1:39PM [facility] XR Lumbar spine AP and Later alOrdered By: [facility] Provider on 11-30-2023 [facility] XR Lumbar spine AP and Later milind 11-27-2023 Radiology Study observation (narrative) [facility] Re-Evaluation - PT (1)on Re-Evaluation - PT (1) [facility] [address] [place] [address] / REEVALUATION / MEDICARE RECERTIFICATION PHYSICAL THERAPY MR#: [id number] Acct: [id number] Name: ELSY DINERO Rep #: [id number] : 1970 53 From: Rudi Madrigal DPT, OCS, CSCS Referring : Status:REG RCR Insurance: [facility] SELF PAY INSURANCE Re-Evaluation Intro: AMBROSE BIRCH, It has been my pleasure to treat ELSY DINERO over the last 19 visits for redo LB fusion 08/23/23. Please see the progress note below for an update on the physical therapy plan of care! Subjective Subjective: I can put my shoes on without much problem but still uses sockaide. Pain lately 01/14 R buttock and down lateral leg wrapping. Sharpness in buttock. Intermittinet. Better in pool 10/14, Does so 5x/week. Gym workout is fine but moving R hip especially ext and abduction can be painful. To doctor 12/03. R leg pain has been 1.5 yrs in the making. Overall with surgery is a bit better but still painful. Sleeping OK with meds. Activities: would like to be able to get throuigh day without lying down and resting. Is able to walk in house at home without AD, Uses wh walker if spasms.needs walker for 200 feet plus. Using wh walker longer distances and at roberto sometimes. Objective Objective/Function: Walks with poor confidence trying to touch wall but more because it makes R hip feel better than balance. Steps reciprocal with one rail without a problem but she believes this is like climbing [place]. Tender over R buttock and gluts and into prirormis area and out to TFL. Some hip ROM deficits in flexion at 100 due to discomfort and ext rotation. Overall better with exercises but has some R hip soft tissue tenderness and concerns. same goals and new month POC. Plan Plan Plan: 2-3x/week x 4 for 2 visits to ensure I in gym and give list then (if we can get manual approved) 3 weeks of manual to R glut, TFL, piriformis DTR, STM and stretching to I home program. Balance/Gait/Functional tests Balance/Special Test Scores Functional Gait Assessment Score: 23 % Disability: 23.3400 Oswestry Low Back Score: 28 Goals Goals Goal 1:: pain 3/10 at worst and intermittent, 75% better Goal Time Frame: 4-6 Weeks Goal Progress: 45%, approp Goal 2:: Patient ambulate community without AD without increased pain Goal Time Frame: 4-6 Weeks Goal Progress: Progressing, approp Goal 3:: steps reciprocal with one rail Goal Time Frame: 4-6 Weeks Goal Progress: Goal Met Goal 4:: FGA Goal Time Frame: 4-6 Weeks Goal Progress: Progressing, approp Goal 5:: I appropr pool and gym based ex for management Goal Progress: 2 more vist gym Anticipated Interventions Anticipated Interventions Patient/Client Instruction: Educate patient on: Condition and Plan of Care For the Purpose of:: To decrease pain, To increase ROM, To improve nutrient delivery to tissue, To improve muscle performance and motor function, To increase tolerance to activity/condition/position and To improve gait and locomotor functions Therapeutic Exercise to Include: Strength training, Balance training, Coordination, Flexibilty training, In an aquatic setting, Passive ROM, Active ROM and Dynamic Lumbar Stabilization For the Purpose of:: To decrease pain, To increase ROM, To improve nutrient delivery to tissue, To improve muscle performance and motor function, To increase tolerance to activity/condition/position and To decrease level of supervision to perform tasks Re-Evaluation Ending Re-evaluation ending: Please do not hesitate to contact me at [phone] by phone or if you have questions or concerns regarding this new plan of care! Sincerely, EARLE GunnT, OCS, CSCS 11/16/23 1037 CC: Dr. Elvin Diaz MD; AMBROSE BIRCH EBG Signed For Medicare only, by signing this I certify the plan of care. Physicians Signature Date Normal [facility] Basic metabolic 2000 panelon 08-27-2023 Anion gap [Moles/Vol] 8 mmol/L Low 9-18 [facility] Comment on above: Order Comment: Speci men Type: BLOOD SPECIMENOrdering Facility: [facility] Address: [address] [place] [address] Performed By: #### 2 4321-2 ####GNOSTICIST LABORATORYCLIA [id number] [address] [place] [address] [place] Calcium [Mass/Vol] 8.7 mg/dL Normal 8.5-10.2 [facility] Comment on above: Order Comment: Speci men Type: BLOOD SPECIMENOrdering Facility: [facility] Address: [address] [place] [address] Performed By: #### 2 4321-2 ####GNOSTICIST LABORATORYCLIA [id number] [place] [address] [place] Chloride [Moles/Vol] 98 mmol/L Normal 97-105 [facility] Comment on above: Order Comment: Speci men Type: BLOOD SPECIMENOrdering Facility: [facility] Address: [address] [place] [address] Performed By: #### 2 4321-2 ####GNOSTICIST LABORATORYCLIA [id number] [place] [id number] [place] CO2 [Moles/Vol] 31 mmol/L High 22-30 [facility] Comment on above: Order Comment: Speci men Type: BLOOD SPECIMENOrdering Facility: [facility] Address: [address] [place] [address] Performed By: #### 2 4321-2 ####GNOSTICIST LABORATORYCLIA [id number] [place] [address] [place] Creatinine [Mass/Vol] 0.68 mg/dL Normal 0.58-0.96 [facility] Comment on above: Order Comment: Speci men Type: BLOOD SPECIMENOrdering Facility: [facility] Address: [address] [place] [address] Performed By: #### 2 4321-2 ####GNOSTICIST LABORATORYCLIA [id number] [place] [id number] [place] Creatinine and Glomerular filtration rate.predicted panel (S/P/Bld) 103 mL/min/1.73m??? Normal >=60 [facility] Comment on above: Order Comment: Speci men Type: BLOOD SPECIMENOrdering Facility: [facility] Address: [address] [place] [address] Result Comment: Lindy mated Glomerular Filtration Rate (eGFR) is calculated using the 2020 CKD-EPI creatinine equation. This equation utilizes serum creatinine, sex, and age as parameters. The creatinine assay has traceable calibration to isotope dilution-mass spectrometry. Refer to KDIGO guidelines for clinical interpretation. In patients with unstable renal function, e.g. those with acute kidney injury, the eGFR may not accurately reflect actual GFR. Performed By: #### 2 4321-2 ####GNOSTICIST LABORATORYCLIA [id number] [place] [id number] [place] Glucose [Mass/Vol] 121 mg/dL High 74-99 [facility] Comment on above: Order Comment: Georgeefra maria alejandra Type: BLOOD SPECIMENOrdering Facility: [facility] Address: [address] [place] [address] Result Comment: The [place] Diabetes Association (ADA) provides guidance for cutoff values for fasting glucose and random glucose. The ADA defines fasting as no caloric intake for at least 8 hours. Fasting plasma glucose results between 100 to 125 mg/dL indicate increased risk for diabetes (prediabetes). Fasting plasma glucose results greater than or equal to 126 mg/dL meet the criteria for diagnosis of diabetes. In the absence of unequivocal hyperglycemia, results should be confirmed by repeat testing. In a patient with classic symptoms of hyperglycemia or hyperglycemic crisis, random plasma glucose results greater than or equal to 200 mg/dL meet the criteria for diagnosis of diabetes. Reference: Standards of Medical Care in Diabetes 2016, [place] [employer] Association. Diabetes Care. 2016.39(Suppl 1). Performed By: #### 2 4321-2 ####GNOSTICIST LABORATORYCLIA [id number] [place] [address] [place] Potassium [Moles/Vol] 4.1 mmol/L Normal 3.7-5.1 [facility] Comment on above: Order Comment: Speci men Type: BLOOD SPECIMENOrdering Facility: [facility] Address: [address] [place] [address] Performed By: #### 2 4321-2 ####GNOSTICIST LABORATORYCLIA [id number] [place] [id number] [place] Sodium [Moles/Vol] 137 mmol/L Normal 136-144 [facility] Comment on above: Order Comment: Speci men Type: BLOOD SPECIMENOrdering Facility: [facility] Address: [address] [place] [address] Performed By: #### 2 4321-2 ####GNOSTICIST LABORATORYCLIA [id number] [address] [place] Urea nitrogen [Mass/Vol] 7 mg/dL Normal 7-21 [facility] Comment on above: Order Comment: Speci men Type: BLOOD SPECIMENOrdering Facility: [facility] Address: [address] [place] [address] Performed By: #### 2 4321-2 ####GNOSTICIST LABORATORYCLIA [id number] [place] [id number] [facility] CASE MANAGEMon 08-27-2023 CASE MANAGEM HNO ID: [id number] Author: LIBBY DOSS RN Service: ? Author Type: Registered Nurse Type: Care Mgt Progress Note Filed: 08/27/2023 14:09 Note Text: CARE MANAGEMENT DISCHARGE NOTE SERVICE DATE: August 27, 2023 SERVICE TIME: 2:00pm Admission Date: 08/23/2023 LOS: 4 days Discharge Arrangement Discharge Arrangement: Home with Home Health Services Arranged Medical Services: Skilled Home Health Care Type: Physical Therapy Provider Name: [facility] Phone: on file Caregiver Assessment Caregiver is ready, willing and able to meet the patient's needs as recommended by the inter-professional team: No Caregiver needed Transportation Arrangements Transportation Arrangements: Ambulance Transportation Agency and Phone #:: [facility] [phone] Date of Trip: 08/27/23 Time of Trip: 1500 Type of Service: BLS Non-emergency Was transportation financial coverage discussed with family?: Patient Manager Drive Location: [place] Destination: Pt. residence Financial Care Management Responsibility: None Handoff Communication: Handoff to: (summary of care, discharge instructions) Additional Information: MMT able to move transport to 3pm, pt. requesting an earlier transport. Bedside nurse aware. Discharge Information Row Name Admission (Current) from 08/23/[address] [facility] Pt. will be discharged today to home with [facility] home PT. DC instructions faxed to [facility]. SIGNATURE: Libby Doss RN PATIENT NAME: Elsy Huntcollin DATE: August 27, 2023 TIME: 2:08 PM CONTACT #: Libby Doss RN [phone] [facility] CASE MANAGEM HNO ID: [id number] Author: LIBBY DOSS RN Service: ? Author Type: Registered Nurse Type: Care Mgt Progress Note Filed: 08/27/2023 12:22 Note Text: CARE MANAGEMENT PROGRESS NOTE SERVICE DATE: 08/27/2023 SERVICE TIME: 12:20pm LOS: 4 days Per medical team, pt. will be discharged today. MMT is arranged for 5pm by stretcher. [facility] home care aware of dc and has contacted pt. Pt. is aware of transport time. Bedside nurse aware of plan. SIGNATURE: Libby Doss RN PATIENT NAME: Elsy Barrazabgderekcollin DATE: August 27, 2023 TIME: 12:21 PM PAGER/CONTACT #: Libby Doss RN [phone] [facility] CBC panel Auto (Bld)on 08-27 Erythrocyte distribution width (RBC) [Ratio] 12.4 % Normal 11.5-15.0 [facility] Comment on above: Order Comment: Speci men Type: BLOOD SPECIMENOrdering Facility: [facility] Address: [address] [place] [address] Performed By: #### 5 8410-2 ####GNOSTICIST LABORATORYCLIA [id number] [address] [place] [address] [place] Hematocrit (Bld) [Volume fraction] 30.8 % Low 36.0-46.0 [facility] Comment on above: Order Comment: Speci men Type: BLOOD SPECIMENOrdering Facility: [facility] Address: [address] [place] [address] Performed By: #### 5 8410-2 ####GNOSTICIST LABORATORYCLIA [id number] [address] [place] [address] [place] Hemoglobin (Bld) [Mass/Vol] 10.0 g/dL Low 11.5-15.5 [facility] Comment on above: Order Comment: Speci men Type: BLOOD SPECIMENOrdering Facility: [facility] Address: [address] [place] [address] Performed By: #### 5 8410-2 ####GNOSTICIST LABORATORYCLIA [id number] [address] [place] MCH (RBC) [Entitic mass] 29.7 pg Normal 26.0-34.0 [facility] Comment on above: Order Comment: Speci men Type: BLOOD SPECIMENOrdering Facility: [facility] Address: [address] [place] [address] Performed By: #### 5 8410-2 ####GNOSTICIST LABORATORYCLIA [id number] [address] [place] MCHC (RBC) [Mass/Vol] 32.5 g/dL Normal 30.5-36.0 [facility] Comment on above: Order Comment: Speci men Type: BLOOD SPECIMENOrdering Facility: [facility] Address: [address] [place] [address] Performed By: #### 5 8410-2 ####GNOSTICIST LABORATORYCLIA [id number] [address] MCV (RBC) [Entitic vol] 91.4 fL Normal 80.0-100.0 [facility] Comment on above: Order Comment: Speci men Type: BLOOD SPECIMENOrdering Facility: [facility] Address: [address] [place] [address] Performed By: #### 5 8410-2 ####GNOSTICIST LABORATORYCLIA [id number] [address] [place], [place] [id number] [place] Nucleated RBC (Bld) [#/Vol] 10*3/uL Normal <0.01 [facility] Comment on above: Order Comment: Speci men Type: BLOOD SPECIMENOrdering Facility: [facility] Address: [address] [place] [address] Performed By: #### 5 8410-2 ####GNOSTICIST LABORATORYCLIA [id number] [address] [place] [address] [place] Platelet mean volume (Bld) [Entitic vol] 9.7 fL Normal 9.0-12.7 [facility] Comment on above: Order Comment: Speci men Type: BLOOD SPECIMENOrdering Facility: [facility] Address: [address] [place] [address] Performed By: #### 5 8410-2 ####GNOSTICIST LABORATORYCLIA [id number] [place] [address] [place] Platelets (Bld) [#/Vol] 251 10*3/uL Normal 150-400 [facility] Comment on above: Order Comment: Speci men Type: BLOOD SPECIMENOrdering Facility: [facility] Address: [address] [place] [address] Performed By: #### 5 8410-2 ####GNOSTICIST LABORATORYCLIA [id number] [place] [id number] [place] RBC (Bld) [#/Vol] 3.37 10*6/uL Low 3.90-5.20 [facility] Comment on above: Order Comment: Speci men Type: BLOOD SPECIMENOrdering Facility: [facility] Address: [address] [place] [address] Performed By: #### 5 8410-2 ####GNOSTICIST LABORATORYCLIA [id number] [place] [id number] [place] WBC (Bld) [#/Vol] 5.66 10*3/uL Normal 3.70-11.00 [facility] Comment on above: Order Comment: Branden bess Type: BLOOD SPECIMENOrdering Facility: [facility] Address: [place] [address] Performed By: #### 5 8410-2 ####GNOSTICIST LABORATORYCLIA [id number] [address] OF [facility] CNDSon 08-27-2023 CNDS HNO ID: [id number] Author: AMBROSE BIRCH MD Service: Neurosurgery Author Type: Nurse Practitioner Type: Discharge Summary Filed: 08/28/2023 13:49 Note Text: Attestation signed by Ambrose Birch MD at 08/28/2023 1:49 PM Ambrose Birch MD DISCHARGE SUMMARY PATIENT NAME: Elsy Dinero ADMISSION DATE: 08/23/2023 DISCHARGE DATE: 08/27/2023 Attending Physician: Ambrose Birch MD Primary Care Physician: Elvin Diaz MD Code Status: Not on file Highest Readmission Risk Score: 12 The 30 day readmissions risk score is derived from an internally validated risk model which evaluates patient level characteristics, utilization history, medication orders and lab results up until the day of discharge. Patients with a score of 40 or above are considered highest risk for readmission. Specific patient level drivers will be listed at the bottom of the summary. Reason for Hospitalization: Elective lumbar spinal surgery Operations During Hospitalization: status post L2-S1 revision fusion, right L4 foraminotomy, L5-S1 TLIF Hospital Course: 53 year old female with past medical history of HLD, DVT (no OAC), asthma/COPD, PAD, GERD, hirsutism, smoker, and lumbar stenosis with neurogenic claudication who presented for elective spine surgery. The patient underwent L2-S1 revision fusion, right L4 foraminotomy, L5-S1 TLIF on 08/23/[address] Birch. Patient reported that the preoperative symptoms of RLE radiculopathy are slightly improved since surgery. Pain management was consulted postoperatively and patient was initially placed on Dilaudid POSTAL WORKER and gradually transitioned to oral pain regimen with adequate relief. She was able to void, pass flatus/BM, and tolerate regular diet. MIKE drain output decreased and was removed with no complications on day of discharge. Postop XR completed. PT/OT evaluated and recommended home PT services. The patient was provided instructions regarding postop wound care, activity restrictions, and pain control regimen. Spironolactone was discontinued due to borderline blood pressures and patient was advised to follow up with prescribing provider regarding re-initiation when appropriate. She is scheduled for follow up with Neurosurgery on 09/07/23. Transitions of Care Critical Issues: SPECIALIST FOLLOW-UP: Follow up with Neurosurgery on 09/07/23 LABS AND PROCEDURES PENDING AT DISCHARGE: No pending results. Treatment Team: Attending Provider: Ambrose Birch MD Consulting: Shaw Kinsey MD Patient Condition @ Discharge: Stable Discharge Disposition: Home with Home Health PHYSICAL EXAM ON DISCHARGE: BP (!) 100/48 Pulse 72 Temp 37 ?C (98.6 ?F) (Oral) Resp 16 Ht 165.1 cm (5' 5) Wt 75.3 kg (166 lb) LMP 03/02/2015 SpO2 99% BMI 27.62 kg/m? GENERAL: Alert, cooperative, and pleasant in no distress. Appears well-developed and well-nourished. LUNGS: Lungs clear to auscultation, no wheezing or rales noted. Good diaphragmatic excursion. CARDIAC: Normal S1 and S2; no rubs, murmurs, or gallops. ABDOMEN: Soft, NTND, BS normal x4. EXTREMITIES: Bilateral lower extremities with 5/5 strength intact. NEURO: Alert and oriented to person, place, and time. Sensation and cognition intact. Incision: CDI, regina intact with no dehiscence or drainage noted. Drain: Serosanguineous output of 125ml/24hrs. MIKE drain removed without complications. Information Provided to Patient: Wound Care Keep dressing clean and dry for 4 days, remove dressing on post op day 4, then may shower Do not scrub wound(s) let the soap run down the incision, then pat dry. Please visually inspect your wound(s) at least once daily. If the wound(s) are in a difficult to see location, please use a mirror or have someone else assist with visual inspection. If you have sutures they are absorbable. These do not need to be removed. Dermabond adhesive was applied to the incision and will peel off by itself as the incision heals. Do NOT apply ointment or lotion to the incision, such as Neosporin, Bacitracin, or any other healing ointments. No soaking/submerging in water for at least 2 weeks surgery (no tub bathing, swimming, or hot tubs), ask your surgeon at your first post op appointment regarding further instructions Monitor incision for signs of infection: increased redness, excessive swelling, persistent drainage, or fevers greater than 101 degrees. Activity No walking restrictions Do not lift more than 10 lbs for the first [address] operate heavy machinery for the first 2 weeks You may climb steps unless stair climbing has been specifically restricted by your healthcare provider. Be careful when you are coming down the stairs because you may be off-balance. You may need to rest pa (more content not included)... [facility] NURSING PROGon 08-27-2023 NURSING PROG HNO ID: [id number] Author: DAINA HO, FRANSISCO Service: Nursing Author Type: Registered Nurse Type: Nursing Progress Note Filed: 08/27/2023 15:57 Note Text: 1555: Patient to be discharged at this time. Refused compression stocking in-house and for discharge. Educated on importance of MARKY hose for DVT prophylaxis, and she states she understands risks. [facility] THERAPY NTon 08-27-2023 THERAPY NT HNO ID: [id number] Author: EVA MAYER, PT Service: Physical Therapy Author Type: Physical Therapist Type: Therapy (PT/OT/Speech/Resp) Filed: 08/27/2023 11:00 Note Text: Physical Therapy Treatment Summary SERVICE DATE: 08/27/2023 SERVICE TIME: 1030 to 1054 ROOM: [place] [address] PT 6 Clicks Score: 24 Total Joint Replacement Discharge Readiness: Not Applicable DISCHARGE RECOMMENDATIONS Home PT Recommended Discharge Disposition Due to: Patient requires an active, intensive rehabilitation therapy program due to:, Patient requires daily, facility-based rehabilitation from at least one discipline due to:, ADL impairment resulting in caregiver dependence, anticipate community discharge/previous community dweller, decline in functional status requiring daily skilled care Recommended Discharge Equipment: No equipment needs anticipated ASSESSMENT Response to Therapy Interventions: Good Participation in Activities, Pain Pt is doing well with mobility and eager to return home today. Able to ambulate around unit without difficulty. PRECAUTIONS Spine, Lines/Tubes/Drains CURRENT HOSPITAL COURSE 53 y.o female admitted 08/23/23 s/p L2-S1 revision of fusion, R L4 foraminotomy, L5-S1 TLIF Relevant Past Medical History: asthma, recovering ETOH, spinal stenpsos, s/p ALIF 01/26, s/p lumbar fusion 02/25, DVT HOME LIVING Patient Lives With: Self/Alone Assistance Available: Part-Time Entry To Home: Stairs, Without Rail Number Of Stairs Into Home: 3 Number Of Stairs To Bed/Bath: 14 (Does have 1st floor set up with hospital bed and half BR) Stairs to Bed/Bath with: Unilateral Rail Tub/Shower Type: Tub shower on second floor, 1/2 bath on first floor Laundry: First floor - Mother can assist Equipment Owned: Commode- Raised, Shower Chair, Walker- Wheeled, Rollator, Production Foreman, Grab Bars- Shower, Hand Held Shower PRIOR FUNCTIONAL LEVEL Within Functional Limits I with ADLs/struggled with IADLs, using walker for ambulation, short distance driving, making small meals, going to [employer] salon, grocery shopping. Patient has a first floor set up with hospital bed but reports she goes up to second floor SUBJECTIVE Pt is eager to return home today. I need to walk. THERAPY DIAGNOSIS Reduced mobility-other, Muscle Weakness (generalized) TREATMENT INTERVENTIONS Gait Training (43828), Therapeutic Activity (39367) Timed Code Treatment (minutes): 24 Skilled Treatment Time (minutes): 24 TRAINING AND EDUCATION PROVIDED Anatomy and Impact on Deficits, Assistive Device Use, Bed Mobility, Benefits of In-Hospital Mobility, Discharge Planning, Expected Functional Level, Gait Pattern, Reduction of Deviations, Pain Neuroscience, Precautions/Restrictions, Positioning, Stair Navigation THERAPEUTIC SKILLS USED Activity Dosing, Cuing Verbal, Teach-Back for Education FUNCTIONAL STATUS Bed Mobility Rolling: Modified Independent Supine To Sit: Modified Independent Sit to Supine: Modified Independent Scooting: Modified Independent Transfers Sit To Stand: Supervision Stand To Sit: Supervision Bed to Chair Modified Independent Bed To Chair Transfer Type: Stepping Bed To Chair Transfer Equipment: Wheeled Walker Gait Supervision Gait Device: Wheeled Walker General Deviations/Observations: Step length decreased, Marycarmen decreased Gait Distance (feet): >300 feet Stairs Supervision Stairs Device: Rail Number of Stairs: 7 GOALS Patient will demonstrate progress with functional mobility to allow safe discharge to home with available support and/or physical assistance. Rehab Potential: Good Progress Toward Goals: Progressing as expected PLAN PT Frequency: 5 Times Per Week Treatment Interventions: Education, Self Care / Home Management, Energy Conservation Training, Strengthening, Functional Mobility Training, Balance Training Plan for Next Visit: Bed Mobility, Gait Training, Sit to Stand Transfers, Exercise Instruction/Handout, Standing Balance, Standing Tolerance, Walker Training SIGNATURE: Eva Mayer, PT PATIENT NAME: Elsy Dinero DATE: August 27, 2023 TIME: 11:00 AM Normal [facility] Basic metabolic 2000 panelon 08-26-2023 Anion gap [Moles/Vol] 9 mmol/L Normal -18 [facility] Comment on above: Order Comment: Speci men Type: BLOOD SPECIMENOrdering Facility: [facility] Address: [address] [place] [address] Performed By: #### 2 4321-2 ####GNOSTICIST LABORATORYCLIA [id number] [place] [address] [place] Calcium [Mass/Vol] 8.3 mg/dL Low 8.5-10.2 [facility] Comment on above: Order Comment: Speci men Type: BLOOD SPECIMENOrdering Facility: [facility] Address: [address] [place] [address] Performed By: #### 2 4321-2 ####GNOSTICIST LABORATORYCLIA [id number] [place] [address] [place] Chloride [Moles/Vol] 98 mmol/L Normal 97-105 [facility] Comment on above: Order Comment: Speci men Type: BLOOD SPECIMENOrdering Facility: [facility] Address: [address] [place] [address] Performed By: #### 2 4321-2 ####GNOSTICIST LABORATORYCLIA [id number] [place] [id number] [place] CO2 [Moles/Vol] 28 mmol/L Normal 22-30 [facility] Comment on above: Order Comment: Speci men Type: BLOOD SPECIMENOrdering Facility: [facility] Address: [address] [place] [address] Performed By: #### 2 4321-2 ####GNOSTICIST LABORATORYCLIA [id number] [place] [address] [place] Creatinine [Mass/Vol] 0.62 mg/dL Normal 0.58-0.96 [facility] Comment on above: Order Comment: Speci men Type: BLOOD SPECIMENOrdering Facility: [facility] Address: [address] [place] [address] Performed By: #### 2 4321-2 ####GNOSTICIST LABORATORYCLIA [id number] [address] Creatinine and Glomerular filtration rate.predicted panel (S/P/Bld) 105 mL/min/1.73m??? Normal >=60 [facility] Comment on above: Order Comment: Speci men Type: BLOOD SPECIMENOrdering Facility: [facility] Address: [address] [place] [address] Result Comment: Lindy mated Glomerular Filtration Rate (eGFR) is calculated using the 2020 CKD-EPI creatinine equation. This equation utilizes serum creatinine, sex, and age as parameters. The creatinine assay has traceable calibration to isotope dilution-mass spectrometry. Refer to KDIGO guidelines for clinical interpretation. In patients with unstable renal function, e.g. those with acute kidney injury, the eGFR may not accurately reflect actual GFR. Performed By: #### 2 4321-2 ####GNOSTICIST LABORATORYCLIA [id number] [place] [address] [place] Glucose [Mass/Vol] 122 mg/dL High 74-99 [facility] Comment on above: Order Comment: Branden bess Type: BLOOD SPECIMENOrdering Facility: [facility] Address: [address] [place] [address] Result Comment: The [place] Diabetes [employer] (ADA) provides guidance for cutoff values for fasting glucose and random glucose. The ADA defines fasting as no caloric intake for at least 8 hours. Fasting plasma glucose results between 100 to 125 mg/dL indicate increased risk for diabetes (prediabetes). Fasting plasma glucose results greater than or equal to 126 mg/dL meet the criteria for diagnosis of diabetes. In the absence of unequivocal hyperglycemia, results should be confirmed by repeat testing. In a patient with classic symptoms of hyperglycemia or hyperglycemic crisis, random plasma glucose results greater than or equal to 200 mg/dL meet the criteria for diagnosis of diabetes. Reference: Standards of Medical Care in Diabetes 2016, [place] [employer]. Diabetes Care. 2016.39(Suppl 1). Performed By: #### 2 4321-2 ####GNOSTICIST LABORATORYCLIA [id number] [place] [address] [place] Potassium [Moles/Vol] 4.0 mmol/L Normal 3.7-5.1 [facility] Comment on above: Order Comment: Branden bess Type: BLOOD SPECIMENOrdering Facility: [facility] Address: [address] [place] [address] Performed By: #### 2 4321-2 ####GNOSTICIST LABORATORYCLIA [id number] [place] [address] [place] Sodium [Moles/Vol] 135 mmol/L Low 136-144 [facility] Comment on above: Order Comment: Branden bess Type: BLOOD SPECIMENOrdering Facility: [facility] Address: [address] [place] [address] Performed By: #### 2 4321-2 ####GNOSTICIST LABORATORYCLIA [id number] [place] [address] [place] Urea nitrogen [Mass/Vol] 8 mg/dL Normal 7-21 [facility] Comment on above: Order Comment: Speci men Type: BLOOD SPECIMENOrdering Facility: [facility] Address: [address] [place] [address] Performed By: #### 2 4321-2 ####GNOSTICIST LABORATORYCLIA [id number] [address] [place], [place] [id number] [place] CBC panel Auto (Bld)on 08-26 Erythrocyte distribution width (RBC) [Ratio] 12.4 % Normal 11.5-15.0 [facility] Comment on above: Order Comment: Speci men Type: BLOOD SPECIMENOrdering Facility: [facility] Address: [address] [place] [address] Performed By: #### 5 8410-2 ####GNOSTICIST LABORATORYCLIA [id number] [address] [place] [address] [place] Hematocrit (Bld) [Volume fraction] 26.9 % Low 36.0-46.0 [facility] Comment on above: Order Comment: Speci men Type: BLOOD SPECIMENOrdering Facility: [facility] Address: [address] [place] [address] Performed By: #### 5 8410-2 ####GNOSTICIST LABORATORYCLIA [id number] [place] [id number] [place] Hemoglobin (Bld) [Mass/Vol] 8.9 g/dL Low 11.5-15.5 [facility] Comment on above: Order Comment: Speci men Type: BLOOD SPECIMENOrdering Facility: [facility] Address: [address] [place] [address] Performed By: #### 5 8410-2 ####GNOSTICIST LABORATORYCLIA [id number] [address] [place] MCH (RBC) [Entitic mass] 30.1 pg Normal 26.0-34.0 [facility] Comment on above: Order Comment: Speci men Type: BLOOD SPECIMENOrdering Facility: [facility] Address: [address] [place] [address] Performed By: #### 5 8410-2 ####GNOSTICIST LABORATORYCLIA [id number] [place] [address] [place] MCHC (RBC) [Mass/Vol] 33.1 g/dL Normal 30.5-36.0 [facility] Comment on above: Order Comment: Speci men Type: BLOOD SPECIMENOrdering Facility: [facility] Address: [address] [place] [address] Performed By: #### 5 8410-2 ####GNOSTICIST LABORATORYCLIA [id number] [place] [id number] [place] MCV (RBC) [Entitic vol] 90.9 fL Normal 80.0-100.0 [facility] Comment on above: Order Comment: Speci men Type: BLOOD SPECIMENOrdering Facility: [facility] Address: [address] [place] [address] Performed By: #### 5 8410-2 ####GNOSTICIST LABORATORYCLIA [id number] [place] [address] [place] Nucleated RBC (Bld) [#/Vol] 10*3/uL Normal <0.01 [facility] Comment on above: Order Comment: Speci men Type: BLOOD SPECIMENOrdering Facility: [facility] Address: [address] [place] [address] Performed By: #### 5 8410-2 ####GNOSTICIST LABORATORYCLIA [id number] [place] [address] [place] Platelet mean volume (Bld) [Entitic vol] 9.2 fL Normal 9.0-12.7 [facility] Comment on above: Order Comment: Speci men Type: BLOOD SPECIMENOrdering Facility: [facility] Address: [address] [place] [address] Performed By: #### 5 8410-2 ####GNOSTICIST LABORATORYCLIA [id number] [place] [address] [place] Platelets (Bld) [#/Vol] 169 10*3/uL Normal 150-400 [facility] Comment on above: Order Comment: Speci men Type: BLOOD SPECIMENOrdering Facility: [facility] Address: [address] [place] [address] Performed By: #### 5 8410-2 ####GNOSTICIST LABORATORYCLIA [id number] [place] [id number] [facility] RBC (Bld) [#/Vol] 2.96 10*6/uL Low 3.90-5.20 [facility] Comment on above: Order Comment: Speci men Type: BLOOD SPECIMENOrdering Facility: [facility] Address: [address] [place] [address] Performed By: #### 5 8410-2 ####GNOSTICIST LABORATORYCLIA [id number] [place] [id number] [facility] WBC (Bld) [#/Vol] 7.92 10*3/uL Normal 3.70-11.00 [facility] Comment on above: Order Comment: Speci men Type: BLOOD SPECIMENOrdering Facility: [facility] Address: [address] [place] [address] Performed By: #### 5 8410-2 ####GNOSTICIST LABORATORYCLIA [id number] [place] [id number] [facility] [place] NURSING PROGon 08-26-2023 NURSING PROG HNO ID: [id number] Author: DAINA HO, FRANSISCO Service: Nursing Author Type: Registered Nurse Type: Nursing Progress Note Filed: 08/26/2023 19:01 Note Text: 0800: Patient refusing to wear compression stockings/IPC's after being educated on risks of refusal. Patient states she understandings risks/dangers regarding refusal and that she understands that they are ordered for DVT prophylaxis. Unit [employer] notified and made aware. [facility] THERAPY NTon 08-26-2023 THERAPY NT HNO ID: [id number] Author: MINOO IRELAND, PT, DPT Service: Physical Therapy Author Type: Physical Therapist Type: Therapy (PT/OT/Speech/Resp) Filed: 08/26/2023 11:09 Note Text: Physical Therapy Treatment Summary SERVICE DATE: 08/26/2023 SERVICE TIME: 1044 to 1058 ROOM: [place] [address] PT 6 Clicks Score: 24 Cleared from Physical Therapy DISCHARGE RECOMMENDATIONS Home PT Recommended Discharge Disposition Due to: Patient requires an active, intensive rehabilitation therapy program due to:, Patient requires daily, facility-based rehabilitation from at least one discipline due to:, ADL impairment resulting in caregiver dependence, anticipate community discharge/previous community dweller, decline in functional status requiring daily skilled care Recommended Discharge Equipment: No equipment needs anticipated ASSESSMENT Response to Therapy Interventions: Good Participation in Activities, Improved Tolerance for Activity, On-Track to Achieve Discharge Goals, Pain Pt tolerated session well. pt able to perform all functional mobility without assistance this date. pt limited most by pain in low back, but able to perform ambulation and stairs without difficulty. pt able to demonstrate the ability to climb 15 steps without requiring a rest break this date. currently patient is cleared to d/c home from PT standpoint. PRECAUTIONS Spine, Lines/Tubes/Drains CURRENT HOSPITAL COURSE 53 y.o female admitted 08/23/23 s/p L2-S1 revision of fusion, R L4 foraminotomy, L5-S1 TLIF Relevant Past Medical History: asthma, recovering ETOH, spinal stenpsos, s/p ALIF 01/26, s/p lumbar fusion 02/25, DVT HOME LIVING Patient Lives With: Self/Alone Assistance Available: Part-Time Entry To Home: Stairs, Without Rail Number Of Stairs Into Home: 3 Number Of Stairs To Bed/Bath: 14 (Does have 1st floor set up with hospital bed and half BR) Stairs to Bed/Bath with: Unilateral Rail Tub/Shower Type: Tub shower on second floor, 1/2 bath on first floor Laundry: First floor - Mother can assist Equipment Owned: Commode- Raised, Shower Chair, Walker- Wheeled, Rollator, Production Foreman, Grab Bars- Shower, Hand Held Shower PRIOR FUNCTIONAL LEVEL Within Functional Limits I with ADLs/struggled with IADLs, using walker for ambulation, short distance driving, making small meals, going to [employer] salon, grocery shopping. Patient has a first floor set up with hospital bed but reports she goes up to second floor SUBJECTIVE im having some pain today, im just ready to get home THERAPY DIAGNOSIS Reduced mobility-other, Muscle Weakness (generalized) TREATMENT INTERVENTIONS Gait Training (02485) Timed Code Treatment (minutes): 14 Skilled Treatment Time (minutes): 14 TRAINING AND EDUCATION PROVIDED Anatomy and Impact on Deficits, Bed Mobility, Benefits of In-Hospital Mobility, Expected Functional Level, Falls Prevention, Gait Pattern, Reduction of Deviations, Precautions/Restrictions, Role of Physical Therapy, Stair Navigation THERAPEUTIC SKILLS USED Cues for Sequencing/Proper Technique for Activity, Cuing Verbal, Management of Critical Lines, Tubes and/or Drains, Teach-Back for Education FUNCTIONAL STATUS Bed Mobility Rolling: Modified Independent Supine To Sit: Modified Independent HOB elevated Sit to Supine: Modified Independent Scooting: Modified Independent Transfers Sit To Stand: Supervision Stand To Sit: Supervision Bed to Chair Modified Independent Bed To Chair Transfer Type: Stepping Bed To Chair Transfer Equipment: Wheeled Walker Gait Supervision Gait Device: Wheeled Walker General Deviations/Observations: Antalgic gait, Step length decreased Gait Distance (feet): 60ftx1. [id number] Stairs Stand By Assistance (with cueing for safe sequencing) Stairs Device: Rail Number of Stairs: 15 GOALS Patient will demonstrate progress with functional mobility to allow safe discharge to home with available support and/or physical assistance. Rehab Potential: Good Progress Toward Goals: Progressing as expected PLAN PT Frequency: 5 Times Per Week Treatment Interventions: Education, Self Care / Home Management, Energy Conservation Training, Strengthening, Functional Mobility Training, Balance Training Plan for Next Visit: Bed Mobility, Gait Training, Sit to Stand Transfers, Exercise Instruction/Handout, Standing Balance, Standing Tolerance, Walker Training SIGNATURE: Minoo Ireland, PT, DPT PATIENT NAME: Elsy Dinero DATE: August 26, 2023 TIME: 11:[address] [facility] THERAPY NT HNO ID: [id number] Author: ANDERSON DAVIS, OT/L Service: ? Author Type: Occupational Therapist Type: Therapy (PT/OT/Speech/Resp) Filed: 08/26/2023 09:01 Note Text: Occupational Therapy Treatment Summary SERVICE DATE: 08/26/2023 SERVICE TIME: 829 to 0849 ROOM: [place] [address] OT 6 Clicks Score: 24 DISCHARGE RECOMMENDATIONS Home Recommended Discharge Disposition Comments: Cleared from Occupational Therapy Anticipated Discharge Needs: Physical Assist at Home Physical Assist at Home for: Cleaning, Meals, Laundry, Shopping, Transportation ASSESSMENT Response to Therapy Interventions: Good Participation in Activities PRECAUTIONS Spine, Lines/Tubes/Drains CURRENT HOSPITAL COURSE 53 y.o female admitted 08/23/23 s/p L2-S1 revision of fusion, R L4 foraminotomy, L5-S1 TLIF Relevant Past Medical History: asthma, recovering ETOH, spinal stenpsos, s/p ALIF 01/26, s/p lumbar fusion 02/25, DVT HOME LIVING Patient Lives With: Self/Alone Assistance Available: Part-Time Entry To Home: Stairs, Without Rail Number Of Stairs Into Home: 3 Number Of Stairs To Bed/Bath: 14 (Does have 1st floor set up with hospital bed and half BR) Stairs to Bed/Bath with: Unilateral Rail Tub/Shower Type: Tub shower on second floor, 1/2 bath on first floor Laundry: First floor - Mother can assist Equipment Owned: Commode- Raised, Shower Chair, Walker- Wheeled, Rollator, Production Foreman, Grab Bars- Shower, Hand Held Shower PRIOR FUNCTIONAL LEVEL Within Functional Limits I with ADLs/struggled with IADLs, using walker for ambulation, short distance driving, making small meals, going to [employer], grocery shopping. Patient has a first floor set up with hospital bed but reports she goes up to second floor THERAPY DIAGNOSIS Reduced mobility-other, Decreased activities of daily living (ADL) TREATMENT INTERVENTIONS Self Jail Management (01460) Timed Code Treatment (minutes): 19 Skilled Treatment Time (minutes): 19 TRAINING AND EDUCATION PROVIDED Activity Adaptation/Compensatory Strategies, Bed Mobility, Lower Extremity Dressing, Precautions/Restrictions, Upper Extremity Dressing THERAPEUTIC SKILLS USED Cuing Verbal, Cuing Visual FUNCTIONAL STATUS Activities of Daily Living Assist Level Additional Information Feeding Independent Grooming Independent Bathing Upper Body Modified Independent Bathing Lower Body Modified Independent Dressing Upper Body Modified Independent Dressing Lower Body Modified Independent Toileting Independent Mobility Assist Level Additional Information Bed Mobility Sit To Supine: Supervision Sit to Stand Supervision Stand to Sit Supervision Bed to Chair Toilet/Commode Shower Functional Mobility Supervision Functional Mobility Device: Wheeled Walker Progress Toward Goals: Progressing as expected Rehab Potential: Good PLAN OT Frequency: Discontinue Therapy Services Reasons Therapy Services Discontinued: Goals met Treatment Interventions: Self Care/Home Management, Energy Conservation Training, Education, Functional Mobility Training SIGNATURE: Anderson Davis OT/L PATIENT NAME: Elsy Dinero DATE: August 26, 2023 TIME: 8:[address] [facility] XR LUMBAR 2V AP/LATon 2023 XR LUMBAR 2V AP/LAT * * *Final Report* * * DATE OF EXAM: Aug 26 2023 11:26AM LUX 5229 - XR LUMBAR 2V AP/LAT / PROCEDURE REASON: Postoperative assessment * * * * Physician Interpretation * * * * Lumbar spine History: Postoperative assessment Prior study: 02/23/2022 Findings: AP and lateral views were performed. Pedicle screws and longitudinal stabilization rods are noted L2-S1. Metallic cages at L2-3, L3-4, L4-5 and L5-S1 disc spaces with plate and screw fixation at the L4-5 level. Vertebral bodies intact. Grade 1-2 spondylolisthesis L4-5. Posterior drainage catheter Counting reference: Lumbosacral junction. For the purposes of this report, L4-5 is considered the level of the iliac crest and there are 5 lumbar-type vertebrae. Anatomic Variants: None. IMPRESSION: Postoperative findings Primary Therapist: SARAHI Transcribe Date/Time: Aug 26 2023 12:31P Dictated by : STEPHANIE JACOBSON MD This examination was interpreted and the report reviewed and electronically signed by: STEPHANIE JACOBSON MD on Aug 26 2023 12:35PM EST [id number] Normal [facility] Basic metabolic 2000 panelon 08-25-2023 Anion gap [Moles/Vol] 7 mmol/L Low 9-18 [facility] Comment on above: Order Comment: Speci men Type: BLOOD SPECIMENOrdering Facility: [facility] Address: [address] [place] [address] Performed By: #### 2 4321-2 ####GNOSTICIST LABORATORYCLIA [id number] [place] [address] [place] Calcium [Mass/Vol] 8.1 mg/dL Low 8.5-10.2 [facility] Comment on above: Order Comment: Speci men Type: BLOOD SPECIMENOrdering Facility: [facility] Address: [address] [place] [address] Performed By: #### 2 4321-2 ####GNOSTICIST LABORATORYCLIA [id number] [place] [address] [place] Chloride [Moles/Vol] 98 mmol/L Normal 97-105 [facility] Comment on above: Order Comment: Speci men Type: BLOOD SPECIMENOrdering Facility: [facility] Address: [address] [place] [address] Performed By: #### 2 4321-2 ####GNOSTICIST LABORATORYCLIA [id number] [place] [id number] [place] CO2 [Moles/Vol] 30 mmol/L Normal 22-30 [facility] Comment on above: Order Comment: Speci men Type: BLOOD SPECIMENOrdering Facility: [facility] Address: [address] [place] [address] Performed By: #### 2 4321-2 ####GNOSTICIST LABORATORYCLIA [id number] [place] [id number] [place] Creatinine [Mass/Vol] 0.66 mg/dL Normal 0.58-0.96 [facility] Comment on above: Order Comment: Speci men Type: BLOOD SPECIMENOrdering Facility: [facility] Address: [address] [place] [address] Performed By: #### 2 4321-2 ####GNOSTICIST LABORATORYCLIA [id number] [place] [id number] [place] Creatinine and Glomerular filtration rate.predicted panel (S/P/Bld) 104 mL/min/1.73m??? Normal >=60 [facility] Comment on above: Order Comment: Speci men Type: BLOOD SPECIMENOrdering Facility: [facility] Address: [address] [place] [address] Result Comment: Lindy mated Glomerular Filtration Rate (eGFR) is calculated using the 2020 CKD-EPI creatinine equation. This equation utilizes serum creatinine, sex, and age as parameters. The creatinine assay has traceable calibration to isotope dilution-mass spectrometry. Refer to KDIGO guidelines for clinical interpretation. In patients with unstable renal function, e.g. those with acute kidney injury, the eGFR may not accurately reflect actual GFR. Performed By: #### 2 4321-2 ####GNOSTICIST LABORATORYCLIA [id number] [place] [id number] [place] Glucose [Mass/Vol] 136 mg/dL High 74-99 [facility] Comment on above: Order Comment: Speci maria alejandra Type: BLOOD SPECIMENOrdering Facility: [facility] Address: [address] [place] [address] Result Comment: The [place] [employer] (ADA) provides guidance for cutoff values for fasting glucose and random glucose. The ADA defines fasting as no caloric intake for at least 8 hours. Fasting plasma glucose results between 100 to 125 mg/dL indicate increased risk for diabetes (prediabetes). Fasting plasma glucose results greater than or equal to 126 mg/dL meet the criteria for diagnosis of diabetes. In the absence of unequivocal hyperglycemia, results should be confirmed by repeat testing. In a patient with classic symptoms of hyperglycemia or hyperglycemic crisis, random plasma glucose results greater than or equal to 200 mg/dL meet the criteria for diagnosis of diabetes. Reference: Standards of Medical Care in Diabetes 2016, [place] [employer]. Diabetes Care. 2016.39(Suppl 1). Performed By: #### 2 4321-2 ####GNOSTICIST LABORATORYCLIA [id number] [place] [id number] [place] Potassium [Moles/Vol] 4.1 mmol/L Normal 3.7-5.1 [facility] Comment on above: Order Comment: Branden maria alejandra Type: BLOOD SPECIMENOrdering Facility: [facility] Address: [address] [place] [address] Performed By: #### 2 4321-2 ####GNOSTICIST LABORATORYCLIA [id number] [place] [id number] [place] Sodium [Moles/Vol] 135 mmol/L Low 136-144 [facility] Comment on above: Order Comment: Speci men Type: BLOOD SPECIMENOrdering Facility: [facility] Address: [address] [place] [address] Performed By: #### 2 4321-2 ####GNOSTICIST LABORATORYCLIA [id number] [place] [id number] [place] Urea nitrogen [Mass/Vol] 7 mg/dL Normal 7-21 [facility] Comment on above: Order Comment: Georgei maria alejandra Type: BLOOD SPECIMENOrdering Facility: [facility] Address: [address] [place] [address] Performed By: #### 2 4321-2 ####GNOSTICIST LABORATORYCLIA [id number] [place] [id number] [place] CASE MANAGEMon 08-25-2023 CASE MANAGEM HNO ID: [id number] Author: GEE LINTON RN Service: Care Management Author Type: Registered Nurse Type: Care Mgt Progress Note Filed: 08/25/2023 16:24 Note Text: CARE MANAGEMENT PROGRESS NOTE SERVICE DATE: 08/25/2023 SERVICE TIME: 1620 LOS: 2 days [place] of Choice Given: Yes Level of Care Discussed: Home Care Financial Disclosure Provided: Yes Financial Disclosure Comments: [facility] Affiliate Provider list within the patient's requested geographic area shared with the patient/family: No Quality and resource use metrics shared with the patient that are relevant to the patient's goals of care and treatment preferences:: Yes Metrics: Skin Integrity;Functional Status;Potentially Preventable 30-day Post Discharge Readmission Rates;Transfer of Health Information and Care Preferences Her SNF choices were unable to accept due to insurance. She now wants to go home if able to do stairs. PT evaluated again and now recommends Home w/ Home PT. Referral placed with [facility]. SIGNATURE: Gee Linton RN PATIENT NAME: Elsy Dinero DATE: August 25, 2023 TIME: 4:22 PM PAGER/CONTACT #: [phone] Normal [facility] CBC panel Auto (Bld)on 08-25 Erythrocyte distribution width (RBC) [Ratio] 12.6 % Normal 11.5-15.0 [facility] Comment on above: Order Comment: Speci men Type: BLOOD SPECIMENOrdering Facility: [facility] Address: [address] [place] [address] Performed By: #### 5 8410-2 ####GNOSTICIST LABORATORYCLIA [id number] [place] [id number] [facility] [place] Hematocrit (Bld) [Volume fraction] 27.8 % Low 36.0-46.0 [facility] Comment on above: Order Comment: Speci men Type: BLOOD SPECIMENOrdering Facility: [facility] Address: [address] [place] [address] Performed By: #### 5 8410-2 ####GNOSTICIST LABORATORYCLIA [id number] [address] [place] [address] [place] Hemoglobin (Bld) [Mass/Vol] 9.1 g/dL Low 11.5-15.5 [facility] Comment on above: Order Comment: Speci men Type: BLOOD SPECIMENOrdering Facility: [facility] Address: [address] [place] [address] Performed By: #### 5 8410-2 ####GNOSTICIST LABORATORYCLIA [id number] [address] [place] [address] [place] MCH (RBC) [Entitic mass] 30.0 pg Normal 26.0-34.0 [facility] Comment on above: Order Comment: Speci men Type: BLOOD SPECIMENOrdering Facility: [facility] Address: [address] [place] [address] Performed By: #### 5 8410-2 ####GNOSTICIST LABORATORYCLIA [id number] [address] [place] [address] [place] MCHC (RBC) [Mass/Vol] 32.7 g/dL Normal 30.5-36.0 [facility] Comment on above: Order Comment: Speci men Type: BLOOD SPECIMENOrdering Facility: [facility] Address: [address] [place] [address] Performed By: #### 5 8410-2 ####GNOSTICIST LABORATORYCLIA [id number] [address] [place] MCV (RBC) [Entitic vol] 91.7 fL Normal 80.0-100.0 [facility] Comment on above: Order Comment: Speci men Type: BLOOD SPECIMENOrdering Facility: [facility] Address: [address] [place] [address] Performed By: #### 5 8410-2 ####GNOSTICIST LABORATORYCLIA [id number] [address] [place] [address] [place] Nucleated RBC (Bld) [#/Vol] 10*3/uL Normal <0.01 [facility] Comment on above: Order Comment: Speci men Type: BLOOD SPECIMENOrdering Facility: [facility] Address: [address] [place] [address] Performed By: #### 5 8410-2 ####GNOSTICIST LABORATORYCLIA [id number] [address] [place], [place] [id number] [place] Platelet mean volume (Bld) [Entitic vol] 9.2 fL Normal 9.0-12.7 [facility] Comment on above: Order Comment: Speci men Type: BLOOD SPECIMENOrdering Facility: [facility] Address: [address] [place] [address] Performed By: #### 5 8410-2 ####GNOSTICIST LABORATORYCLIA [id number] [place] [id number] [place] Platelets (Bld) [#/Vol] 178 10*3/uL Normal 150-400 [facility] Comment on above: Order Comment: Speci men Type: BLOOD SPECIMENOrdering Facility: [facility] Address: [address] [place] [address] Performed By: #### 5 8410-2 ####GNOSTICIST LABORATORYCLIA [id number] [place] [address] [place] RBC (Bld) [#/Vol] 3.03 10*6/uL Low 3.90-5.20 [facility] Comment on above: Order Comment: Speci men Type: BLOOD SPECIMENOrdering Facility: [facility] Address: [address] [place] [address] Performed By: #### 5 8410-2 ####GNOSTICIST LABORATORYCLIA [id number] [place] [id number] [place] WBC (Bld) [#/Vol] 8.67 10*3/uL Normal 3.70-11.00 [facility] Comment on above: Order Comment: Speci men Type: BLOOD SPECIMENOrdering Facility: [facility] Address: [address] [place] [address] Performed By: #### 5 8410-2 ####GNOSTICIST LABORATORYCLIA [id number] [address] [place] CONSULT PROGon 08-25-2023 CONSULT PROG HNO ID: [id number] Author: JACE BERRY MD Service: Pain Management Author Type: Physician [employer] Type: Consult Progress Note Filed: 08/25/2023 16:47 Note Text: Attestation signed by Jace Berry MD at 08/25/2023 4:47 PM I saw and evaluated the patient. Discussed with the pa and agree with pa's findings and plan as documented in the pa's note. INPATIENT PAIN MANAGEMENT PROGRESS NOTE Patient Name: Elsy Dinero SERVICE DATE: August 25, 2023 SERVICE TIME: 9:13 AM PRIMARY SERVICE: Ortho and Spine Consult by Dr Birch for acute post operative pain INTERVAL HPI: Is the patient having any pain? Yes LOCATION: lumbar PAIN SCALE: 7 on a scale of 0-10 PAIN CHARACTER: aching FREQUENCY: (How often does the pain occur?) occurs constantly 53 year old female cc low back pain post spine surgery Redo L2-S1 interbody fusion with replacement of hardware, redo interbody fusion L5-S1 and exploration of fusion 08/23 PERTINENT ROS: denies fever, chills, diarrhea, constipation, nausea, vomiting, CP, SOB, weakness, numbness, tingling or loss of bladder bowel control Denies muscle tightness or spasms All other reviewed and negative other than HPI. PAST MEDICAL HISTORY Diagnosis Date Acid reflux Acute gastritis without mention of hemorrhage 09/14/2011 Allergy-induced asthma, mild intermittent, uncomplicated Asthma Chronic midline low back pain without sciatica 05/17/2016 Duodenitis 09/14/2011 Duodenitis without mention of hemorrhage Facet arthropathy, lumbar 05/17/2016 Hemorrhage of gastrointestinal tract, unspecified Hirsutism 09/16/2019 Pure hypercholesterolemia 06/28/2021 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 Spinal stenosis, lumbar region, without neurogenic claudication 03/27/2015 Suicidal ideation 03/03/2022 Tobacco use disorder 04/11/2007 Vascular occlusion 01/07/2022 Intraoperative L common iliac artery occlusion PAST SURGICAL HISTORY Procedure Laterality Date ARTHROSCOPIC REMOVAL HARDWARE DEEP 05/17/2022 removal of iliac screws ESOPHAGOGASTRODUODENOSCOPY TRANSORAL DIAGNOSTIC 09/14/2011 EGD ILIAC REVASC ADD-ON Left 01/07/2022 L Common Iliac Artery endarterectomy LUMBAR SPINE FUSION COMBINED 02/23/2022 L2 to ilium instrumented fusion, L3, 4 and 5 laminectomy, L2-3, 3-4 and L5-S1 transforaminal lumbar interbody fusion. LUMBAR SPINE FUSION,ANTER APPRCH 01/07/2022 ALIF L4-L5. PAST SURGICAL HISTORY OF 04/29/2012 excision of back lump SIGMOIDOSCOPY FLX DX W/COLLJ SPEC BR/WA IF PFRMD 09/14/2011 Sigmoidoscopy, flexible FAMILY HISTORY Problem Relation Age of Onset GI Mother colon polyps Cancer Mother Lung/Uterine/ cervical Allergies Mother GI Father colon polyps Diabetes Father Coronary Artery Disease Father Stents Heart Father age 85 Dementia Father No Known Problems Sister No Known Problems Sister Diabetes Brother Kidney Disease Brother dialysis Heart Failure Brother Allergies Daughter Heart Daughter PDA closure Allergies Daughter Breast Cancer Maternal Grandmother Allergies Maternal Grandfather Breast Cancer Paternal Grandmother Allergies Paternal Grandmother Diabetes Paternal Grandfather Anesthesia Problems No Family History Anesthesia No Family History Social History Tobacco Use Smoking status: Former Packs/day: 2.00 Years: 38.00 Additional pack years: 0.00 Total pack years: 76.00 Types: Cigarettes Quit date: 07/10/2023 Years since quittin.1 Smokeless tobacco: Never Tobacco comments: started age 13. Resumed 1 10/2022 Vaping Use Vaping Use: Never used Substance Use Topics Alcohol use: Not Currently Comment: recovering since 2016. Drug use: Not Currently Comment: experimented in 20s MEDICATIONS: Current Facility-Administered Medications Medication Dose Route Frequency albuterol HFA 90 mcg/actuation 2 Puff (PROVENTIL HFA, VENTOLIN HFA) 2 Puff INHALATION q 4 H PRN docusate sodium 100 mg cap(s) (COLACE) 100 mg ORAL BID spironolactone 50 mg tab(s) (ALDACTONE) 50 mg ORAL BID NaCl 0.9% iv infusion 75 mL/hr INTRAVENOUS CONTINUOUS ondansetron 4 mg tab(s) (ZOFRAN) 4 mg ORAL q 6 H PRN Or ondansetron (PF) 4 mg injection (ZOFRAN) 4 mg INTRAVENOUS q 6 H PRN naloxone 0.1 mg injection (NARCAN) 0.1 mg INTRAVENOUS q 2 MIN PRN NaCl 0.9% iv infusion 5-30 mL/hr INTRAVENOUS CONTINUOUS HYDROmorphone POSTAL WORKER 0.5 mg/mL in NaCl 0.9% 100 mL INTRAVENOUS CONTINUOUS HYDROmorphone 0.5 mg/mL POSTAL WORKER CLINICIAN DOSE 0.2 mg 0.2 mg INTRAVENOUS q 3 H PRN methocarbamol 750 mg tab(s) (ROBAXIN) 750 mg ORAL TID PRN acetaminophen 1,000 mg tab(s) (TYLENOL) 1,000 mg ORAL q 8 H heparin 5,000 Units injection 5,000 Units SUBCUTANEOUS q 12 H polyethylene glycol 3350 17 g packet 17 g ORAL DAILY PHYSICAL EXAM: B (more content not included)... [facility] NURSING PROGon 08-25-2023 NURSING PROG HNO ID: [id number] Author: ES BARR RN Service: Nursing Author Type: Registered Nurse Type: Nursing Progress Note Filed: 08/25/2023 04:29 Note Text: 0107 - When this nurse went into patient room for q4h POSTAL WORKER rate verify, it was assessed that patient's POSTAL WORKER seemed to have reset, and was had not recorded any hours from the last time it was checked (around 2029), see MAR. Patient bolus attempts and successful boluses not being recorded, but it was acknowledged by this nurse and Hernan Thompson RN, night ANM, that the pump still has a lockout time of 15 minute intervals, and still is set to bolus 0.3 mg at a time, which is consistent with patient's orders. 0345 - Nurse back into room to assess patient pump to see if any amount of time being recorded. No time / bolus attempts / successful bolus numbers being recorded. Only VTBI and volume infused being recorded by pump. At this time, new pump was acquired and hooked up. Verified with Hernan Thompson RN. 0425 - New pump installed, POSTAL WORKER tubing run through and started at 45 VTBI. Hernan Thompson and this nurse verified the time / lockout time / and bolus dose patient can receive. POSTAL WORKER to be checked on normal 4 hour schedule from this point. Normal [facility] THERAPY NTon 08-25-2023 THERAPY NT HNO ID: [id number] Author: CHILO RODGERS, PT, DPT Service: Physical Therapy Author Type: Physical Therapist Type: Therapy (PT/OT/Speech/Resp) Filed: 08/25/2023 16:20 Note Text: Physical Therapy Treatment Summary SERVICE DATE: 08/25/2023 SERVICE TIME: 1535 to 1601 ROOM: [place] [address] PT 6 Clicks Score: 24 DISCHARGE RECOMMENDATIONS Home PT Recommended Discharge Disposition Due to: Pt safe for D/C home with Home PT when medically cleared. ASSESSMENT Response to Therapy Interventions: Good Participation in Activities, Improved Tolerance for Activity, On-Track to Achieve Discharge Goals, Notable Progression with Functional Activities/Skills, Pain pt with improved participation and tolerance to activity PRECAUTIONS Spine, Lines/Tubes/Drains CURRENT HOSPITAL COURSE 53 y.o female admitted 08/23/23 s/p L2-S1 revision of fusion, R L4 foraminotomy, L5-S1 TLIF Relevant Past Medical History: asthma, recovering ETOH, spinal stenpsos, s/p ALIF 01/26, s/p lumbar fusion 02/25, DVT HOME LIVING Patient Lives With: Self/Alone Assistance Available: Part-Time Entry To Home: Stairs, Without Rail Number Of Stairs Into Home: 3 Number Of Stairs To Bed/Bath: 14 (Does have 1st floor set up with hospital bed and half BR) Stairs to Bed/Bath with: Unilateral Rail Tub/Shower Type: Tub shower on second floor, 1/2 bath on first floor Laundry: First floor - Mother can assist Equipment Owned: Commode- Raised, Shower Chair, Walker- Wheeled, Rollator, Production Foreman, Grab Bars- Shower, Hand Held Shower PRIOR FUNCTIONAL LEVEL Within Functional Limits I with ADLs/struggled with IADLs, using walker for ambulation, short distance driving, making small meals, going to [employer], grocery shopping. Patient has a first floor set up with hospital bed but reports she goes up to second floor SUBJECTIVE I think I will be better at home THERAPY DIAGNOSIS Reduced mobility-other, Difficulty walking-musculoskeletal TREATMENT INTERVENTIONS Therapeutic Activity (63605), Gait Training (03945) Timed Code Treatment (minutes): 26 Skilled Treatment Time (minutes): 26 TRAINING AND EDUCATION PROVIDED Advanced Balance Activities, Anatomy and Impact on Deficits, Assistive Device Use, Bed Mobility, Benefits of In-Hospital Mobility, Equipment, Energy Conservation, Handout Issued, Sitting Balance, Standing Balance, Precautions/Restrictions, Pre-gait Activities THERAPEUTIC SKILLS USED Activity Dosing, Assessment of Tolerance Including Vitals Response to Activity, Cuing Tactile, Cuing Verbal, Cues for Sequencing/Proper Technique for Activity, Teach-Back for Education FUNCTIONAL STATUS Bed Mobility Rolling: Modified Independent Supine To Sit: Modified Independent Sit to Supine: Modified Independent Scooting: Modified Independent Transfers Sit To Stand: Supervision x 3 trials Stand To Sit: Supervision Bed to Chair Modified Independent Bed To Chair Transfer Type: Stepping Bed To Chair Transfer Equipment: Wheeled Walker Pt declined sitting in chair Gait Modified Independent slow, steady gait Gait Device: Wheeled Walker General Deviations/Observations: Shuffling Gait Gait Distance (feet): 150 feet x 1 Stairs Stand By Assistance Stairs Device: Rail, Other: See Comment (B HR; wall + HR) Number of Stairs: 7 GOALS Patient will demonstrate understanding of importance of mobility during hospital stay and resolve all functional needs identified., Patient will demonstrate progress with functional mobility to allow safe discharge to home with available support and/or physical assistance. Rehab Potential: Good Progress Toward Goals: Progressing as expected PLAN PT Frequency: 5 Times Per Week Treatment Interventions: Education, Self Care / Home Management, Energy Conservation Training, Strengthening, Functional Mobility Training, Balance Training Plan for Next Visit: Bed Mobility, Gait Training, Sit to Stand Transfers, Exercise Instruction/Handout, Standing Balance, Standing Tolerance, Walker Training SIGNATURE: Chilo Rodgers, PT, DPT PATIENT NAME: Elsy Dinero DATE: August 25, 2023 TIME: 4:[address] [facility] THERAPY NT HNO ID: [id number] Author: RACHEL MENDOZA, OTR/L Service: Occupational Therapy Author Type: Occupational Therapist Type: Therapy (PT/OT/Speech/Resp) Filed: 08/25/2023 16:13 Note Text: Patient is planning on DC to home; Per PT report who worked with patient today, Patient was independent x 2 with toileting during session. Pt reported to PT that she has all long handled dressing equipment at home and is aware of dressing techniques and following spine precautions as she has had previous spine surgeries. Cleared for DC to home from OT standpoint. [facility] ALLIED HEALTHon 08-24-2023 ALLIED HEALTH HNO ID: [id number] Author: MACK ARIZMENDI Chaplain Service: Spiritual Care Author Type: Counter Roller Type: Allied Health Filed: 08/24/2023 09:55 Note Text: SPIRITUAL CARE PROGRESS NOTE SERVICE DATE: 08/24/2023 SERVICE TIME: 09:30-09:50 Counter Roller attempted visit with pt, initially pt was open to the visit, however pt's pain, among other issues pressed for pt to request cell builder to return at a later time. To contact the Spiritual Care Department: Please call [phone]. SIGNATURE: Chaplain Galen PATIENT NAME: Elsy Dinero DATE: August 24, 2023 TIME: 9:53 AM PAGER/CONTACT #: [phone] [facility] Basic metabolic 2000 panelon 08-24-2023 Anion gap [Moles/Vol] 11 mmol/L Normal 04-24 [facility] Comment on above: Order Comment: Speci men Type: BLOOD SPECIMENOrdering Facility: [facility] Address: [address] [place] [address] Performed By: #### 2 4321-2 ####GNOSTICIST LABORATORYCLIA [id number] [place] [address] [place] Calcium [Mass/Vol] 8.4 mg/dL Low 8.5-10.2 [facility] Comment on above: Order Comment: Speci men Type: BLOOD SPECIMENOrdering Facility: [facility] Address: [address] [place] [address] Performed By: #### 2 4321-2 ####GNOSTICIST LABORATORYCLIA [id number] [place] [address] [place] Chloride [Moles/Vol] 103 mmol/L Normal 97-105 [facility] Comment on above: Order Comment: Speci men Type: BLOOD SPECIMENOrdering Facility: [facility] Address: [address] [place] [address] Performed By: #### 2 4321-2 ####GNOSTICIST LABORATORYCLIA [id number] [place] [id number] [place] CO2 [Moles/Vol] 25 mmol/L Normal 22-30 [facility] Comment on above: Order Comment: Speci men Type: BLOOD SPECIMENOrdering Facility: [facility] Address: [address] [place] [address] Performed By: #### 2 4321-2 ####GNOSTICIST LABORATORYCLIA [id number] [address] [place] Creatinine [Mass/Vol] 0.74 mg/dL Normal 0.58-0.96 [facility] Comment on above: Order Comment: Speci men Type: BLOOD SPECIMENOrdering Facility: [facility] Address: [address] [place] [address] Performed By: #### 2 4321-2 ####GNOSTICIST LABORATORYCLIA [id number] [address] Creatinine and Glomerular filtration rate.predicted panel (S/P/Bld) 96 mL/min/1.73m??? Normal >=60 [facility] Comment on above: Order Comment: Speci men Type: BLOOD SPECIMENOrdering Facility: [facility] Address: [address] [place] [address] Result Comment: Lindy mated Glomerular Filtration Rate (eGFR) is calculated using the 2020 CKD-EPI creatinine equation. This equation utilizes serum creatinine, sex, and age as parameters. The creatinine assay has traceable calibration to isotope dilution-mass spectrometry. Refer to KDIGO guidelines for clinical interpretation. In patients with unstable renal function, e.g. those with acute kidney injury, the eGFR may not accurately reflect actual GFR. Performed By: #### 2 4321-2 ####GNOSTICIST LABORATORYCLIA [id number] [place] [id number] [place] Glucose [Mass/Vol] 112 mg/dL High 74-99 [facility] Comment on above: Order Comment: Branden maria alejandra Type: BLOOD SPECIMENOrdering Facility: [facility] Address: [address] [place] [address] Result Comment: The [place] [employer] (ADA) provides guidance for cutoff values for fasting glucose and random glucose. The ADA defines fasting as no caloric intake for at least 8 hours. Fasting plasma glucose results between 100 to 125 mg/dL indicate increased risk for diabetes (prediabetes). Fasting plasma glucose results greater than or equal to 126 mg/dL meet the criteria for diagnosis of diabetes. In the absence of unequivocal hyperglycemia, results should be confirmed by repeat testing. In a patient with classic symptoms of hyperglycemia or hyperglycemic crisis, random plasma glucose results greater than or equal to 200 mg/dL meet the criteria for diagnosis of diabetes. Reference: Standards of Medical Care in Diabetes 2016, [place] [employer]. Diabetes Care. 2016.39(Suppl 1). Performed By: #### 2 4321-2 ####GNOSTICIST LABORATORYCLIA [id number] [place] [id number] [place] Potassium [Moles/Vol] 4.7 mmol/L Normal 3.7-5.1 [facility] Comment on above: Order Comment: Branden bess Type: BLOOD SPECIMENOrdering Facility: [facility] Address: [address] [place] [address] Performed By: #### 2 4321-2 ####GNOSTICIST LABORATORYCLIA [id number] [place] [id number] [place] Sodium [Moles/Vol] 139 mmol/L Normal 136-144 [facility] Comment on above: Order Comment: Georgei maria alejandra Type: BLOOD SPECIMENOrdering Facility: [facility] Address: [address] [place] [address] Performed By: #### 2 4321-2 ####GNOSTICIST LABORATORYCLIA [id number] [place] [id number] [place] Urea nitrogen [Mass/Vol] 13 mg/dL Normal 7-21 [facility] Comment on above: Order Comment: Speci men Type: BLOOD SPECIMENOrdering Facility: [facility] Address: [place] [address] Performed By: #### 2 4321-2 ####GNOSTICIST LABORATORYCLIA [id number] [place] [address] [place] CASE MGT INIT RAEANNESon 2023 CASE MGT INIT ASSES HNO ID: [id number] Author: GEE LINTON RN Service: Care Management Author Type: Registered Nurse Type: Care Mgt Initial Assessment Filed: 08/24/2023 14:56 Note Text: CARE MANAGEMENT: ASSESSMENT AND DISCHARGE PLAN SERVICE DATE: August 24, 2023 SERVICE TIME: 1400 PCP: Elvin Diaz MD Primary Contact: Extended Emergency Contact Information Primary Emergency Contact: Leela Dinero [place] Mobile Relation: Mother Secondary Emergency Contact: Jennifer Dinero Mobile Relation: Sister Admission Status: Inpatient Insurance Provider: [facility] MEDICAID Discharge Planning requested by: Per Department Practice Potential Transition Plans Home;Home OT/PT;Half-Way Facility/Intermediate Care Facility Advance Directives Current Advance Directive: None Nursing Care Attendant Attempted to Assist with AD Completion: Yes Action: Education Provided Current Living Arrangements and Support Lives with: Alone Type of Residence: Private Residence (House) Does the patient have to climb stairs at home?: Yes;stairs outside the home;stairs within the home Support: Family members How do you manage to accomplish the following: Independent: Bathe/Shower;Dress;Meals/Meal Prep;Going to the bathroom;Medication Management Needs Assistance: Ambulation;Transportation to appointments/community Current Services/Equipment Current Post-Acute Service(s): DME Current DME Type: Elevated toilet seat, Rolling walker, Hospital bed, Shower seat Discharge Planning Patient Goal(s): Other: See Comment Patient's Other Post-Acute Care Goal(s): To be able to walk without a walker Amawalk of Choice Explained: Amawalk of Choice Given: Yes Level of Care Discussed: Half-Way Facility Are you interested in bedside delivery of your medications? TBD Discharge Planning Participant(s): Patient Patient/Family Comments: Caregiver Assessment: Caregiver is ready, willing and able to meet the patient's needs as recommended by the inter-professional team: Yes Name of Caregiver: Family if needed Transport at Discharge: Transportation Arrangements: To Be Determined Needs Prior to Discharge: Needs Prior to Discharge: OT/PT Evaluation;Discharge Prescriptions;Facility or Agency Choices;Bed Availability;Accepting Facility;Insurance Authorization Post-Acute Discharge Plan: Patient assessed at this time. She lives alone in a two level home. Her family can assist her at home if needed. Prior to coming in she was ambulating with a walker, driving and independent in the home for daily living needs. At this time therapy has recommended SNF. She has selected [facility] in [place]. Referral placed. She has no other needs and will need transported on discharge. CM will remain available for any discharge needs. SIGNATURE: Gee Linton RN PATIENT NAME: Elsy Dinero DATE: August 24, 2023 TIME: 2:40 PM CONTACT #: [phone] Normal [facility] CBC panel Auto (Bld)on 08-24 Erythrocyte distribution width (RBC) [Ratio] 13.0 % Normal 11.5-15.0 [facility] Comment on above: Order Comment: Specefra bess Type: BLOOD SPECIMENOrdering Facility: [facility] Address: [address] [place] [address] Performed By: #### 5 8410-2 ####GNOSTICIST LABORATORYCLIA [id number] [place] [address] [place] Hematocrit (Bld) [Volume fraction] 31.4 % Low 36.0-46.0 [facility] Comment on above: Order Comment: Speci maria alejandra Type: BLOOD SPECIMENOrdering Facility: [facility] Address: [address] [place] [address] Performed By: #### 5 8410-2 ####GNOSTICIST LABORATORYCLIA [id number] [place] [address] [place] Hemoglobin (Bld) [Mass/Vol] 10.0 g/dL Low 11.5-15.5 [facility] Comment on above: Order Comment: Speci men Type: BLOOD SPECIMENOrdering Facility: [facility] Address: [address] [place] [address] Performed By: #### 5 8410-2 ####GNOSTICIST LABORATORYCLIA [id number] [address] [place] [address] MCH (RBC) [Entitic mass] 29.9 pg Normal 26.0-34.0 [facility] Comment on above: Order Comment: Speci men Type: BLOOD SPECIMENOrdering Facility: [facility] Address: [address] [place] [address] Performed By: #### 5 8410-2 ####GNOSTICIST LABORATORYCLIA [id number] [address] [place] [address] [place] MCHC (RBC) [Mass/Vol] 31.8 g/dL Normal 30.5-36.0 [facility] Comment on above: Order Comment: Speci men Type: BLOOD SPECIMENOrdering Facility: [facility] Address: [address] [place] [address] Performed By: #### 5 8410-2 ####GNOSTICIST LABORATORYCLIA [id number] [address] [place] [address] [place] MCV (RBC) [Entitic vol] 94.0 fL Normal 80.0-100.0 [facility] Comment on above: Order Comment: Speci men Type: BLOOD SPECIMENOrdering Facility: [facility] Address: [address] [place] [address] Performed By: #### 5 8410-2 ####GNOSTICIST LABORATORYCLIA [id number] [address] [place] Nucleated RBC (Bld) [#/Vol] 10*3/uL Normal <0.01 [facility] Comment on above: Order Comment: Speci men Type: BLOOD SPECIMENOrdering Facility: [facility] Address: [address] [place] [address] Performed By: #### 5 8410-2 ####GNOSTICIST LABORATORYCLIA [id number] [address] [place] [address] [place] Platelet mean volume (Bld) [Entitic vol] 9.3 fL Normal 9.0-12.7 [facility] Comment on above: Order Comment: Speci men Type: BLOOD SPECIMENOrdering Facility: [facility] Address: [place] [address] Performed By: #### 5 8410-2 ####GNOSTICIST LABORATORYCLIA [id number] [place] [id number] [place] Platelets (Bld) [#/Vol] 216 10*3/uL Normal 150-400 [facility] Comment on above: Order Comment: Speci men Type: BLOOD SPECIMENOrdering Facility: [facility] Address: [address] [place] [address] Performed By: #### 5 8410-2 ####GNOSTICIST LABORATORYCLIA [id number] [address] [place] RBC (Bld) [#/Vol] 3.34 10*6/uL Low 3.90-5.20 [facility] Comment on above: Order Comment: Speci men Type: BLOOD SPECIMENOrdering Facility: [facility] Address: [address] [place] [address] Performed By: #### 5 8410-2 ####GNOSTICIST LABORATORYCLIA [id number] [place] [id number] [facility] [place] WBC (Bld) [#/Vol] 8.48 10*3/uL Normal 3.70-11.00 [facility] Comment on above: Order Comment: Speci men Type: BLOOD SPECIMENOrdering Facility: [facility] Address: [address] [place] [address] Performed By: #### 5 8410-2 ####GNOSTICIST LABORATORYCLIA [id number] [place] [id number] [facility] CONSULTon 08-24-2023 CONSULT HNO ID: [id number] Author: SHAW KINSEY MD Service: General Internal Medicine Author Type: Physician Type: Consults Filed: 08/25/2023 20:48 Note Text: INTERNAL MEDICINE CONSULT HISTORY AND PHYSICAL PLEASE DO NOT REMOVE FROM THE CHART OR MODIFY PRINTED COPY Patient Name: Elsy Dinero PRIMARY CARE PHYSICIAN: Elvin Diaz MD CONSULTING PHYSICIAN: Ambrose Birch MD MD DATE of CONSULT: 1:11 PM HPI: This is a 53 year old female who presents with Left L2 screw loosening, foraminal stenosis right L4 nerve root, canal stenosis at L5-S1 patient seen postop day 1 pain is 3/10 denies any nausea vomiting or headache no weakness no urgency patient seen by pain management PAST MEDICAL HISTORY: PAST MEDICAL HISTORY Diagnosis Date Acid reflux Acute gastritis without mention of hemorrhage 09/14/2011 Allergy-induced asthma, mild intermittent, uncomplicated Asthma Chronic midline low back pain without sciatica 05/17/2016 Duodenitis 09/14/2011 Duodenitis without mention of hemorrhage Facet arthropathy, lumbar 05/17/2016 Hemorrhage of gastrointestinal tract, unspecified Hirsutism 09/16/2019 Pure hypercholesterolemia 06/28/2021 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 Spinal stenosis, lumbar region, without neurogenic claudication 03/27/2015 Suicidal ideation 03/03/2022 Tobacco use disorder 04/11/2007 Vascular occlusion 01/07/2022 Intraoperative L common iliac artery occlusion PAST SURGICAL HISTORY: PAST SURGICAL HISTORY Procedure Laterality Date ARTHROSCOPIC REMOVAL HARDWARE DEEP 05/17/2022 removal of iliac screws ESOPHAGOGASTRODUODENOSCOPY TRANSORAL DIAGNOSTIC 09/14/2011 EGD ILIAC REVASC ADD-ON Left 01/07/2022 L Common Iliac Artery endarterectomy LUMBAR SPINE FUSION COMBINED 02/23/2022 L2 to ilium instrumented fusion, L3, 4 and 5 laminectomy, L2-3, 3-4 and L5-S1 transforaminal lumbar interbody fusion. LUMBAR SPINE FUSION,ANTER APPRCH 01/07/2022 ALIF L4-L5. PAST SURGICAL HISTORY OF 04/29/2012 excision of back lump SIGMOIDOSCOPY FLX DX W/COLLJ SPEC BR/WA IF PFRMD 09/14/2011 Sigmoidoscopy, flexible FAMILY HISTORY: FAMILY HISTORY Problem Relation Age of Onset GI Mother colon polyps Cancer Mother Lung/Uterine/ cervical Allergies Mother GI Father colon polyps Diabetes Father Coronary Artery Disease Father Stents Heart Father age 85 Dementia Father No Known Problems Sister No Known Problems Sister Diabetes Brother Kidney Disease Brother dialysis Heart Failure Brother Allergies Daughter Heart Daughter PDA closure Allergies Daughter Breast Cancer Maternal Grandmother Allergies Maternal Grandfather Breast Cancer Paternal Grandmother Allergies Paternal Grandmother Diabetes Paternal Grandfather Anesthesia Problems No Family History Anesthesia No Family History SOCIAL HISTORY: Social History Tobacco Use Smoking status: Former Packs/day: 2.00 Years: 38.00 Additional pack years: 0.00 Total pack years: 76.00 Types: Cigarettes Quit date: 07/10/2023 Years since quittin.1 Smokeless tobacco: Never Tobacco comments: started age 13. Resumed 1 10/2022 Vaping Use Vaping Use: Never used Substance Use Topics Alcohol use: Not Currently Comment: recovering since 2017. Drug use: Not Currently Comment: experimented in 20s ALLERGIES: ALLERGIES Allergen Reactions Prednisone Mental Status Change FEELS LIKE I'M GOING NUTS Zyban [Bupropion] Mental Status Change Suicidal thoughts Animal Hair-Dander * Hives Cats Hives Dogs Hives Niacin Rash, Vomiting Pollen Hives Gabapentin Mental Status Change Ciprofloxacin Vomiting States can take if she eats with it. Grass Pollen Intolerance Trees Intolerance PRIOR TO ADMISSION MEDICATIONS: Acetaminophen 500 mg cap, Take 1,000 mg by mouth., Disp: , Rfl: , 08/23/2023 spironolactone (ALDACTONE) 50 mg tablet, Take 1 tablet by mouth two times a day., Disp: 60 tablet, Rfl: 5, 08/23/2023 at 0800 mupirocin (BACTROBAN) 2 % ointment, Apply 1/2 ointment with a cotton swab in each nostril 2x daily for five days preop, Disp: 22 g, Rfl: 0, 08/23/2023 sennosides (SENNACON ORAL), Take 1 tablet by mouth once daily., Disp: , Rfl: , 08/23/2023 at 0800 diphenhydramine HCl (BENADRYL ALLERGY ORAL), Take by mouth. 2 tablets qhs, Disp: , Rfl: , 08/22/2023 triamcinolone acetonide (NASACORT AQ NASAL), Use 1 [place] in the nose. qAM as needed, Disp: , Rfl: , 08/23/2023 at 0800 docusate sodium (COLACE) 100 mg capsule, Take 1 capsule by mouth twice daily., Disp: , Rfl: , 08/23/2023 at 0800 fexofenadine (STANLEY) 180 mg tablet, Take 180 mg by mouth once daily., Disp: , Rfl: , 08/23/2023 famotidine (PEPCID ORAL), Take 1 tablet by mouth twice daily., Disp: , Rfl: , 08/23/2023 albuterol HFA (PROVENTIL HFA, VENTOLIN HFA) 90 mcg/actuation inhaler, Inhale 2 Puffs as instructed every 4 hours as needed for wheezing/shortness of breath., (more content not included)... [facility] CONSULT HNO ID: [id number] Author: JOSE BUSTOS MD Service: Pain Management Author Type: Physician [employer]estock [employer] Type: Consults Filed: 08/24/2023 15:40 Note Text: Attestation signed by Jose Bustos MD at 08/24/2023 3:40 PM Attending Note: Day findings confirmed. Discussed with the physician boilermaker's assistant. Plan as outlined. Jose Bustos MD August 24, 2023 3:39 PM INPATIENT PAIN MANAGEMENT CONSULT Patient Name: Elsy Dinero SERVICE DATE: August 24, 2023 SERVICE TIME: 8:09 AM PRIMARY SERVICE: Ortho and Spine Consult by Dr Birch for acute post operative pain INTERVAL HPI: Is the patient having any pain? Yes LOCATION: lumbar PAIN SCALE: 9 on a scale of 0-10 PAIN CHARACTER: aching FREQUENCY: (How often does the pain occur?) occurs constantly 53 year old female cc low back pain post spine surgery Redo L2-S1 interbody fusion with replacement of hardware, redo interbody fusion L5-S1 and exploration of fusion 08/23 PERTINENT ROS: denies fever, chills, diarrhea, constipation, nausea, vomiting, CP, SOB, weakness, numbness, tingling or loss of bladder bowel control Denies muscle tightness or spasms All other reviewed and negative other than HPI. PAST MEDICAL HISTORY Diagnosis Date Acid reflux Acute gastritis without mention of hemorrhage 09/14/2011 Allergy-induced asthma, mild intermittent, uncomplicated Asthma Chronic midline low back pain without sciatica 05/17/2016 Duodenitis 09/14/2011 Duodenitis without mention of hemorrhage Facet arthropathy, lumbar 05/17/2016 Hemorrhage of gastrointestinal tract, unspecified Hirsutism 09/16/2019 Pure hypercholesterolemia 06/28/2021 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 Spinal stenosis, lumbar region, without neurogenic claudication 03/27/2015 Suicidal ideation 03/03/2022 Tobacco use disorder 04/11/2007 Vascular occlusion 01/07/2022 Intraoperative L common iliac artery occlusion PAST SURGICAL HISTORY Procedure Laterality Date ARTHROSCOPIC REMOVAL HARDWARE DEEP 05/17/2022 removal of iliac screws ESOPHAGOGASTRODUODENOSCOPY TRANSORAL DIAGNOSTIC 09/14/2011 EGD ILIAC REVASC ADD-ON Left 01/07/2022 L Common Iliac Artery endarterectomy LUMBAR SPINE FUSION COMBINED 02/23/2022 L2 to ilium instrumented fusion, L3, 4 and 5 laminectomy, L2-3, 3-4 and L5-S1 transforaminal lumbar interbody fusion. LUMBAR SPINE FUSION,ANTER APPRCH 01/07/2022 ALIF L4-L5. PAST SURGICAL HISTORY OF 04/29/2012 excision of back lump SIGMOIDOSCOPY FLX DX W/COLLJ SPEC BR/WA IF PFRMD 09/14/2011 Sigmoidoscopy, flexible FAMILY HISTORY Problem Relation Age of Onset GI Mother colon polyps Cancer Mother Lung/Uterine/ cervical Allergies Mother GI Father colon polyps Diabetes Father Coronary Artery Disease Father Stents Heart Father age 85 Dementia Father No Known Problems Sister No Known Problems Sister Diabetes Brother Kidney Disease Brother dialysis Heart Failure Brother Allergies Daughter Heart Daughter PDA closure Allergies Daughter Breast Cancer Maternal Grandmother Allergies Maternal Grandfather Breast Cancer Paternal Grandmother Allergies Paternal Grandmother Diabetes Paternal Grandfather Anesthesia Problems No Family History Anesthesia No Family History Social History Tobacco Use Smoking status: Former Packs/day: 2.00 Years: 38.00 Additional pack years: 0.00 Total pack years: 76.00 Types: Cigarettes Quit date: 07/10/2023 Years since quittin.1 Smokeless tobacco: Never Tobacco comments: started age 13. Resumed 10/2022 Vaping Use Vaping Use: Never used Substance Use Topics Alcohol use: Not Currently Comment: recovering since 2017. Drug use: Not Currently Comment: experimented in 20s MEDICATIONS: Current Facility-Administered Medications Medication Dose Route Frequency albuterol HFA 90 mcg/actuation 2 Puff (PROVENTIL HFA, VENTOLIN HFA) 2 Puff INHALATION q 4 H PRN docusate sodium 100 mg cap(s) (COLACE) 100 mg ORAL BID spironolactone 50 mg tab(s) (ALDACTONE) 50 mg ORAL BID NaCl 0.9% iv infusion 75 mL/hr INTRAVENOUS CONTINUOUS ondansetron 4 mg tab(s) (ZOFRAN) 4 mg ORAL q 6 H PRN Or ondansetron (PF) 4 mg injection (ZOFRAN) 4 mg INTRAVENOUS q 6 H PRN polyethylene glycol 3350 17 g packet 17 g ORAL DAILY PRN naloxone 0.1 mg injection (NARCAN) 0.1 mg INTRAVENOUS q 2 MIN PRN NaCl 0.9% iv infusion 5-30 mL/hr INTRAVENOUS CONTINUOUS HYDROmorphone POSTAL WORKER 0.5 mg/mL in NaCl 0.9% 100 mL INTRAVENOUS CONTINUOUS HYDROmorphone 0.5 mg/mL POSTAL WORKER CLINICIAN DOSE 0.2 mg 0.2 mg INTRAVENOUS q 3 H PRN methocarbamol 750 mg tab(s) (ROBAXIN) 750 mg ORAL TID PRN acetaminophen 1,000 mg tab(s) (TYLENOL) 1,000 mg ORAL q 8 H prochlorperazine 5 mg injection (COMPAZINE) 5 mg INTRAVENOUS ONCE [START ON 08/25/19 (more content not included)... [facility] THERAPY NTon 08-24-2023 THERAPY NT HNO ID: [id number] Author: BECKY BLACK OT/L Service: Occupational Therapy Author Type: Occupational Therapist Type: Therapy (PT/OT/Speech/Resp) Filed: 08/24/2023 15:22 Note Text: Occupational Therapy Evaluation Summary SERVICE DATE: 08/24/2023 SERVICE TIME: 1419 to 1500 ROOM: [id number] OT 6 Clicks Score: 22 DISCHARGE RECOMMENDATIONS Home Anticipated Discharge Needs: Physical Assist at Home Physical Assist at Home for: Meals, Cleaning, Laundry, Transportation, Shopping, Safety ASSESSMENT Response to Therapy Interventions: Good Participation in Activities, Requires Additional Time to Complete Activities, Pain, Needs Frequent Redirection or Reinstruction Patient primarily concerned about stairs. Able to complete functional mobility household distances with supervision and FWW. Patient very distractible, reports she has all necessary DME at home for self care tasks. Anticipate patient would be safe to d/c home from OT perspective pending improved performance with self care tasks and progression of mobility. Patient prefers to d/c to SNF. PRECAUTIONS Spine, Lines/Tubes/Drains CURRENT HOSPITAL COURSE 53 y.o female admitted 08/23/23 s/p L2-S1 revision of fusion, R L4 foraminotomy, L5-S1 TLIF Relevant Past Medical History: asthma, recovering ETOH, spinal stenpsos, s/p ALIF 01/26, s/p lumbar fusion 02/25, DVT HOME LIVING Patient Lives With: Self/Alone Assistance Available: Part-Time Entry To Home: Stairs, Without Rail Number Of Stairs Into Home: 3 Number Of Stairs To Bed/Bath: 14 (Does have 1st floor set up with hospital bed and half BR) Stairs to Bed/Bath with: Unilateral Rail Tub/Shower Type: Tub shower on second floor, 1/2 bath on first floor Laundry: First floor - Mother can assist Equipment Owned: Commode- Raised, Shower Chair, Walker- Wheeled, Rollator, Production Foreman, Grab Bars- Shower, Hand Held Shower PRIOR FUNCTIONAL LEVEL Within Functional Limits I with ADLs/struggled with IADLs, using walker for ambulation, short distance driving, making small meals, going to [employer] salon, grocery shopping. Patient has a first floor set up with hospital bed but reports she goes up to second floor SUBJECTIVE Patient agreeable to OT THERAPY DIAGNOSIS Decreased activities of daily living (ADL), Reduced mobility-other TREATMENT INTERVENTIONS Evaluation, Therapeutic Activity (12403) Timed Code Treatment (minutes): 26 Skilled Treatment Time (minutes): 41 TRAINING AND EDUCATION PROVIDED Activity Adaptation/Compensatory Strategies, Assistive Device Use, Adaptive Equipment/DME, Benefits of In-Hospital Mobility, Bed Mobility, Discharge Planning, Expected Functional Level, Functional Mobility Involving ADLs, Lower Extremity Dressing, Lower Extremity Bathing, Home Set-up/Modifications, Positioning, Precautions/Restrictions, Role of Occupational Therapy, Standing Balance to Improve [place] with ADLs/Self-Care, Transfer - Sit to Stand, Transfer - Car, Upper Extremity Bathing, Upper Extremity Dressing, Toileting THERAPEUTIC SKILLS USED Activity Dosing, Cues for Sequencing/Proper Technique for Activity, Cuing Verbal, Physical Assist FUNCTIONAL STATUS Activities of Daily Living Assist Level Additional Information Feeding Set Up Grooming Set Up Bathing Upper Body Set Up Bathing Lower Body Minimal Assistance Dressing Upper Body Set Up Dressing Lower Body Minimal Assistance Toileting Stand By Assistance Mobility Assist Level Additional Information Bed Mobility Supine To Sit: Stand By Assistance, Additional Information with HOB elevated Sit To Supine: Stand By Assistance, Additional Information with HOB elevated Sit to Stand Supervision Stand to Sit Supervision Bed to Chair Toilet/Commode Shower Functional Mobility Supervision Functional Mobility Device: Wheeled Walker GOALS Patient will demonstrate progress with self-care, cognitive and/or coping needs identified to allow safe discharge to home with available support and/or physical assistance. Progress Toward Goals: Progressing as expected Rehab Potential: Good PLAN OT Frequency: PRN (As Needed) Treatment Interventions: Self Care/Home Management, Energy Conservation Training, Education, Functional Mobility Training SIGNATURE: Becky Black OT/Rosie PATIENT NAME: Elsy Dinero DATE: August 24, 2023 TIME: 3:[address] [facility] THERAPY NT HNO ID: [id number] Author: CHILO RODGERS, PT, DPT Service: Physical Therapy Author Type: Physical Therapist Type: Therapy (PT/OT/Speech/Resp) Filed: 08/24/2023 13:32 Note Text: Physical Therapy Evaluation Summary SERVICE DATE: 08/24/2023 SERVICE TIME: 1210 to 1257 ROOM: [id number]- PT 6 Clicks Score: 17 DISCHARGE RECOMMENDATIONS Subacute/SNF Recommended Discharge Disposition Due to: Patient requires an active, intensive rehabilitation therapy program due to:, Patient requires daily, facility-based rehabilitation from at least one discipline due to:, ADL impairment resulting in caregiver dependence, anticipate community discharge/previous community dweller, decline in functional status requiring daily skilled care Recommended Discharge Equipment: No equipment needs anticipated ASSESSMENT Response to Therapy Interventions: Pain, Requires Additional Time to Complete Activities, Requires Encouragement to Complete Activities, Needs Frequent Redirection or Reinstruction PRECAUTIONS Spine, Lines/Tubes/Drains CURRENT HOSPITAL COURSE 53 y.o female admitted 08/23/23 s/p L2-S1 revision of fusion, R L4 foraminotomy, L5-S1 TLIF Relevant Past Medical History: asthma, recovering ETOH, spinal stenpsos, s/p ALIF 01/26, s/p lumbar fusion 02/25, DVT HOME LIVING Patient Lives With: Self/Alone Assistance Available: Part-Time Entry To Home: Stairs, Without Rail Number Of Stairs Into Home: 3 Number Of Stairs To Bed/Bath: 14 (Does have 1st floor set up with hospital bed and half BR) Stairs to Bed/Bath with: Unilateral Rail Tub/Shower Type: Tub shower on second floor, 1/2 bath on first floor Laundry: First floor - Mother can assist Equipment Owned: Commode- Raised, Shower Chair, Walker- Wheeled, Rollator, Production Foreman, Grab Bars- Shower, Hand Held Shower PRIOR FUNCTIONAL LEVEL Within Functional Limits I with ADLs/struggled with IADLs, using walker for ambulation, short distance driving, making small meals, going to [employer], grocery shopping. Patient has a first floor set up with hospital bed but reports she goes up to second floor SUBJECTIVE I need my birkenstocks to walk. I can't walk without them THERAPY DIAGNOSIS Reduced mobility-other TREATMENT INTERVENTIONS Evaluation, Therapeutic Activity (25346) Timed Code Treatment (minutes): 15 Skilled Treatment Time (minutes): 30 TRAINING AND EDUCATION PROVIDED Advanced Balance Activities, Anatomy and Impact on Deficits, Assistive Device Use, Bed Mobility, Benefits of In-Hospital Mobility, Equipment, Energy Conservation, Handout Issued, Sitting Balance, Standing Balance, Precautions/Restrictions, Pre-gait Activities THERAPEUTIC SKILLS USED Activity Dosing, Assessment of Tolerance Including Vitals Response to Activity, Cuing Tactile, Cuing Verbal, Cues for Sequencing/Proper Technique for Activity, Teach-Back for Education FUNCTIONAL STATUS Bed Mobility Rolling: Contact Guard Assistance Supine To Sit: Additional Information, Contact Guard Assistance increased time required with use of bed rail and HOB elevated Sit to Supine: Contact Guard Assistance, Additional Information Increased time required with us eof bed rail and HOB flat Scooting: Contact Guard Assistance, Additional Information to scoot to EOB in sitting Transfers Sit To Stand: Minimal Assistance, Additional Information completed sit to/from stand x 5 trials Stand To Sit: Contact Guard Assistance Bed to Chair Additional Information refused to attempt to sit in a chair/recliner Gait Minimal Assistance, Additional Information only willing to take a couple steps forwards/backwards/in place Gait Device: Wheeled Walker General Deviations/Observations: Shuffling Gait Gait Distance (feet): 0 Stairs GOALS Patient will demonstrate progress to optimize functional mobility, maximize activity tolerance and endurance to maximize function upon discharge. Rehab Potential: Good Progress Toward Goals: Progressing slower than expected PLAN PT Frequency: 6 Times Per Week Treatment Interventions: Education, Self Care / Home Management, Energy Conservation Training, Strengthening, Functional Mobility Training, Balance Training Plan for Next Visit: Bed Mobility, Gait Training, Sit to Stand Transfers, Exercise Instruction/Handout, Standing Balance, Standing Tolerance, Walker Training SIGNATURE: Chilo Rodgers, PT, DPT PATIENT NAME: Elsy Dinero DATE: August 24, 2023 TIME: 1:[address] [facility] ANES POSTPROC EVALon 024 ANES POSTPROC EVAL HNO ID: [id number] Author: JAMES ARROYO MD Service: Anesthesiology Author Type: Anesthesiologist Type: Anesthesia Postprocedure Evaluation Filed: 08/23/2023 20:28 Note Text: POST ANESTHESIA EVALUATION NOTE : 1970 Procedure Summary Date: 08/23/23 Room / Location: [place] [address] / OR Anesthesia Start: 1307 Anesthesia Stop: 1750 Procedures: TLIF DECOMPRESSION LAMINECTOMY INTERBODY FUSION LUMBAR POSTERIOR (PLIF) LEVEL 1 (Spine Lumbosacral ) POSTERIOR NON-SEGMENTAL INSTRUMENTATION FOLLOWING LUMBAR FUSION 1 LEVEL PDFI (Spine Lumbosacral ) INSERTION INTERBODY BIOMED DEVICE(S) W/ANT INSTR ANCHORING TO DISC SPACE W/INTERBODY FUSION,EA INTERSPACE (Spine Lumbosacral ) DECOMPRESSION LAMINECTOMY 1ST ADD'L LUMBAR SEGMENT (Right: Spine Lumbosacral ) Diagnosis: Radiculopathy, lumbar region (Radiculopathy, lumbar region [M54.16]) Surgeons: Ambrose Birch MD Responsible Provider: James Arroyo MD Anesthesia Type: general ASA Status: 3 Anesthesia Type: general Airway Type: ETT Last Vitals Vitals Value Taken Time BP 102/65 08/23/231920 Temp 36.7 ?C (98.1 ?F) 08/23/23 1748 Pulse 85 08/23/236 Resp 16 08/23/23 1845 SpO2 87 % 08/23/231925 Vitals shown include unfiled device data. Post Anesthesia Patient Status Patient Evaluation: PACU. PACU/ICU Patient Condition: stable. Anticipated Disposition: inpatient floor planned admission. Neurological Status: aware and responsive. Pulmonary Status: breathing comfortably on room air Airway Control: returned to baseline unsupported. Cardiovascular Status: stable. Pain Management: clinically adequate - multimodal analgesia pain management approach Postoperative Hydration: acceptable. Intraoperative Events: no significant anesthesia events Recommendation: continue current plan of care and further care per PACU/ICU/floor team. Other Remarks: High pain scores but appropriate for the surgery. Discussed lyrica. Pt refuses saying gabapentin made her suicidal and lyrica is in the same class. I reviewed her floor medications and added Robaxin 750mg TID PRN which she takes at home.. Anesthesia Observations No Documentation SIGNATURE: James Arroyo MD PATIENT NAME: Elsy Dinero DATE: August 23, 2023 TIME: 7:26 PM CSN: [id number] [facility] ANES PRE-OPon 08-23-2023 ANES PRE-OP HNO ID: [id number] Author: JOSE BUSTOS MD Service: Anesthesiology Author Type: Anesthesiologist Type: Anesthesia Preprocedure Evaluation Filed: 08/23/2023 11:56 Note Text: ANESTHESIOLOGY DAY OF SURGERY NOTE : 1970 Procedure Information Date/Time: 08/23/23 1215 Procedures: TLIF DECOMPRESSION LAMINECTOMY INTERBODY FUSION LUMBAR POSTERIOR (PLIF) LEVEL 1 (Spine Lumbosacral ) POSTERIOR NON-SEGMENTAL INSTRUMENTATION FOLLOWING LUMBAR FUSION 1 LEVEL PDFI (Spine Lumbosacral ) INSERTION INTERBODY BIOMED DEVICE(S) W/ANT INSTR ANCHORING TO DISC SPACE W/INTERBODY FUSION,EA INTERSPACE (Spine Lumbosacral ) DECOMPRESSION LAMINECTOMY 1ST ADD'L LUMBAR SEGMENT (Right: Spine Lumbosacral ) INSERT PELVIC FIXATION DEVICE (Pelvis) - L5-S1 Interbody Fusion, Foraminotomy at Right L4-5 and L5-S1 with Pelvic Fixation O-Arm Location: [facility] OR09 / [facility] OR Surgeons: Ambrose Birch MD Estimated body mass index is 26.79 kg/m? as calculated from the following: Height as of 07/26/23: 167.6 cm (5' 6). Weight as of 08/14/23: 75.3 kg (166 lb). Most recent hematocrit and potassium results: Hematocrit 40.9 07/26/2023 Hematocrit (POCT) 32 01/07/2022 Potassium 4.0 07/26/2023 Potassium (POCT) 3.4 01/07/2022 Relevant Problems CARDIO (+) PAD (peripheral artery disease) (HCC) GI (+) Acid reflux NEURO-PSYCH (+) History of DVT (deep vein thrombosis) PULMONARY (+) Allergy-induced asthma, mild intermittent, uncomplicated (+) Asthma with chronic obstructive pulmonary disease (COPD) (+) Tobacco abuse I - PHYSICAL EVALUATION AIRWAY Patient intubated: No. Tracheostomy tube not present Mallampati: I. TM distance: >3 FB. Neck ROM: full. Mouth opening: adequate. Short neck: no. Thick neck: no DENTAL Normal dental observations. Dental findings: teeth intact. Additional exam findings: yes. CARDIOVASCULAR Normal cardiovascular observations. Rhythm: regular Rate: normal PULMONARY Normal pulmonary observations. Breath sounds clear to auscultation. II - ANESTHESIA PLAN ASA Score: 3 Anesthetic Plan: general Airway type: ETT Current smoker: stopped 45 days ago. NPO Status: adequate Beta Adriel Monitoring Plan Monitoring plan: Standard ASA. Post Procedure Analgesic Plan Postoperative analgesic plan: multimodal analgesia. Informed Consent Anesthetic risks, benefits, alternatives, personnel and consent discussed: yes. Patient / Responsible Republican agrees to proceed: yes Patient / Surrogate agrees to blood products: Yes Significant changes in the patient condition since the History and Physical, not otherwise documented in primary service progress note: no. Potential Anesthesia issues that may suggest increased risk of complications or contraindication to planned procedure: none. Vitals Value Taken Time BP 123/64 08/23/23 1028 Pulse 69 08/23/23 1028 Resp 16 08/23/23 1028 Temp 36.6 ?C (97.9 ?F) 08/23/23 1028 SpO2 100 % 08/23/23 1028 Facility-Administered Medications as of 08/23/2023 Medication Dose Route Frequency - acetaminophen 1,000 mg tab(s) (TYLENOL) 1,000 mg ORAL Pre-Op Once - [COMPLETED] promethazine 12.5 mg tab(s) (PHENERGAN) 12.5 mg ORAL Pre-Op Once - lidocaine (PF) 10 mg/mL (1 %) 1-2 mg injection (XYLOCAINE) 0.1-0.2 mL INTRADERMAL PRN - lactated ringers iv infusion 5-30 mL/hr INTRAVENOUS CONTINUOUS - NaCl 0.9% iv flush bag 20 mL INTRAVENOUS PRN - ceFAZolin iv piggyback 2 g in D5W (iso-osmotic) 100 mL (ANCEF) 2 g INTRAVENOUS Pre-Op Once Outpatient Medications as of 08/23/2023 Medication Sig - Acetaminophen 500 mg cap Take 1,000 mg by mouth. - spironolactone (ALDACTONE) 50 mg tablet Take 1 tablet by mouth two times a day. - mupirocin (BACTROBAN) 2 % ointment Apply 1/2 ointment with a cotton swab in each nostril 2x daily for five days preop - sennosides (SENNACON ORAL) Take 1 tablet by mouth once daily. - diphenhydramine HCl (BENADRYL ALLERGY ORAL) Take by mouth. 2 tablets qhs - triamcinolone acetonide (NASACORT AQ NASAL) Use 1 [place] in the nose. qAM as needed - docusate sodium (COLACE) 100 mg capsule Take 1 capsule by mouth twice daily. - fexofenadine (STANLEY) 180 mg tablet Take 180 mg by mouth once daily. - famotidine (PEPCID ORAL) Take 1 tablet by mouth twice daily. - albuterol HFA (PROVENTIL HFA, VENTOLIN HFA) 90 mcg/actuation inhaler Inhale 2 Puffs as instructed every 4 hours as needed for wheezing/shortness of breath. I have interviewed and examined the patient. I have reviewed the medical record and/or the pre-anesthesia evaluation, pertinent labs, and test results. This contains updated information obtained within 48 hours of Surgery/Procedure. SIGNATURE: Jose Bustos MD PATIENT NAME: Elsy Dinero DATE: August 23, 2023 TIME: 11:55 AM CSN: [id number] [facility] BRIEF OP NOTon 08-23-2023 BRIEF OP NOT HNO ID: [id number] Author: ALDEN DOOLEY PA-C Service: Neurosurgery Author Type: Physician [employer] Type: Brief Op Note Filed: 08/23/2023 17:55 Note Text: BRIEF OPERATIVE / PROCEDURE NOTE LOG ID: [id number] SURGERY/PROCEDURE DATE: 08/23/2023 INCISION/PROCEDURE START TIME: 2:03 PM INCISION CLOSE/PROCEDURE END TIME: 5:36 PM SURGEON(S)/PROCEDURALIST(S) AND ELEMENTARY SCHOOL COUNSELOR(S): Surgeon(s) and Role: * Ambrose Birch MD - Primary Physician [employer]: Alden Dooley PA-C SURGERY/PROCEDURE(S): L2-S1 revision fusion, right L4 foraminotomy, L5-S1 TLIF ANESTHESIA: General FINDINGS: Left L2 screw loosening, foraminal stenosis right L4 nerve root, canal stenosis at L5-S1 ESTIMATED BLOOD LOSS: 200 mls SPECIMENS: None COMPLICATIONS: None DRAINS: Unmodified CLOSURE TECHNIQUE: Primary PRE-OP/PRE-PROCEDURE DIAGNOSIS: Lumbar canal stenosis and pseudarthrosis POST-OP/POST-PROCEDURE DIAGNOSIS: Same as Preop SIGNATURE: Alden Dooley PA-C PATIENT NAME: Elsy Dinero DATE: August 23, 2023 TIME: 5:[address] [facility] NURSING PROGon 08-23-2023 NURSING PROG HNO ID: [id number] Author: CRISTINA CARDENAS RN Service: ? Author Type: Registered Nurse Type: Nursing Progress Note Filed: 08/24/2023 01:47 Note Text: Patient arrived to floor from PACU yelling and crying very loud.This RN comes to room. Patient is laying on her left side in the bed, HOB flat. Yelling and cursing about pain.Patient not available for pain medication until 2200. Patient complains of rooms being hot and demands MARKY hose and SCD's off. Several ice packs applied. Patient requests to be placed in the hallway and we explained patient care cannot be given in the hallway. This RN asks family and patient what can I do to help. Family states this is patient's fourth back surgery and she always cries and screams all night long. States patient's needs room to be dark and cold. Family and patient requesting patient to have a room without roommate. This RN calls NOM and gets patient moved to [facility]. This RN explains to patient and family that patient will be moved to a room without a roommate, however it is not guaranteed to last the entire hospital stay. Family expresses understanding. Patient moved and placed comfortably into new room. [facility] NURSING PROG HNO ID: [id number] Author: ADELINA CORTES, FRANSISCO Service: ? Author Type: Registered Nurse Type: Nursing Progress Note Filed: 08/23/2023 21:16 Note Text: 2030 Pt dozing off and on. Oriented x3. Responds appropriately. Still rates pain as a 9/10. aware of pt's current status and pain level. Robaxin and Tylenol po given as ordered by . Pt states that she is ready to see her family and go to her room. Neuro vascular status intact. Pt gets very tense and emotional at times. Crying and yelling into pillow at times. Instructed on POSTAL WORKER and button in hand. Deep breathing and relaxation techniques encouraged. [facility] OPERATIVE NOon 08-23-2023 OPERATIVE NO HNO ID: [id number] Author: AMBROSE BIRCH MD Service: Neurosurgery Author Type: Physician Type: Operative Report Filed: 08/25/2023 15:52 Note Text: [facility] - Operative Report ELSY DINERO : 1970 AGE: 53. SEX: F PATIENT TYPE: I HOSP SVC: Surgical LOCATION: [facility] ATTENDING PHYSICIAN: Ambrose Birch M.D. CSN NUMBER: [id number] DATE OF SURGERY/PROCEDURE: 08/23/2023 INCISION/PROCEDURE START TIME: 2:03 PM INCISION CLOSE/PROCEDURE END TIME: 5:36 PM PREOPERATIVE DIAGNOSIS: Lumbar pseudoarthrosis and radiculopathy. POSTOPERATIVE DIAGNOSIS: Lumbar pseudoarthrosis and radiculopathy. SURGEON: Ambrose Birch M.D. ELEMENTARY SCHOOL COUNSELOR: Physician [employer]: Alden Dooley PA-C SURGERY/PROCEDURE: Redo right L4 foraminotomy, redo posterolateral L2-3 instrumented fusion, and redo L5-S1 transforaminal lumbar interbody fusion. ANESTHESIA: General FINDINGS: This patient had an L2 to S1 previous fusion; however, she developed worsening pain. Imaging revealed pseudoarthrosis, likely at the L5-S1 level. She did not approve the conservative treatment, wished to have surgery. All risks and benefits were carefully explained. DESCRIPTION OF PROCEDURE: The patient was taken to the OR and satisfactory general endotracheal anesthesia was induced. The patient was given 2 g of IV preoperative Ancef and placed in the prone position on the Morgan table. All bony prominences were carefully protected. The back was prepped and draped in usual sterile fashion. A time-out was performed. The existing incision was opened. The hardware and the lamina and residual edges were left in the subperiosteal plane. We then removed all the top locking screws and rods and then sequentially took out each ricardo carefully palpating each screw hole to make sure there was no bony breach noted, there was none noted anywhere, and we replaced screws all with 1 mm larger diameter except the left L2, which was 2 mm in diameter. Good bony purchase was obtained with screw placement. We then put rods in the screw heads and then top locking screws onto the rods into the screw heads. We copiously irrigated. We made an annulotomy on the left at L5-S1, removed the disk, scraped the endplate, and then after copiously irrigating, we placed an expandable cage filled with BMP-soaked sponge. Additional BMP-soaked sponge was packed into the disk space as well. It was expanded to approximately 15 mm. Then, we tightened all the top locking screws with a torque wrench. Final x-rays showed good placement of graft and hardware and good spinal alignment. We then placed vancomycin powder in the wound. We decorticated the posterolateral bone from L2-S1 and placed BMP-soaked sponge and allograft at these levels for posterolateral fusion at these levels. We palpated all the foramina. There was no residual compression. We placed vancomycin powder into the wound. We placed an epidural drain and brought this out through a separate stab incision. We then closed the wound in multiple layers using regina for the skin. A dry sterile dressing was applied. At the end of the case, the patient was transferred to the hospital bed, extubated, and taken to the PACU in stable condition. There were no complications. All counts were correct at the end of the case. I was present and scrubbed for all critical aspects of the case. The PA helped with suctioning, retraction, and suturing. Marycruz Roberts:[id number] /[id number] [facility] SURGICAL PATHOLOGYon [address] [facility] Comment on above: Order Comment: Speci men Type: DEVICE SPECIMENOrdering Facility: [facility] Address: [address] [place] [address] Result Comment: Surg ical Pathology Report Case: [id number] Authorizing Provider: Ambrose Birch MD Collected: 08/23/2023 04:31 PM Ordering Location: [facility] Received: 08/24/2023 09:22 AM Operating Room Pathologist: Gregg Cochran MD Specimen: HARDWARE, hardware removed L2-S1 Performed By: #### S ####[facility] LABCLIA [id number] [address] OF [facility] CLINICAL HISTORY [facility] Comment on above: Order Comment: Speci men Type: DEVICE SPECIMENOrdering Facility: [facility] Address: [address] [place] [address] Result Comment: Pre- op diagnosis: Radiculopathy, lumbar region [M54.16] Performed By: #### S ####[facility] LABCLIA [id number] [address] FINAL DIAGNOSIS [facility] Comment on above: Order Comment: Speci men Type: DEVICE SPECIMENOrdering Facility: [facility] Address: [address] [place] [address] Result Comment: A. L 2-S1 hardware removal: - Spinal hardware (gross examination only). KF/TN/judit 08/25/2023 Performed By: #### S ####[facility] LABCLIA [id number] [id number] OF [facility] FINAL PERFORMING LAB [facility] Comment on above: Order Comment: Speci men Type: DEVICE SPECIMENOrdering Facility: [facility] Address: [address] [place] [address] Result Comment: Diag nostic interpretation performed at [facility], [address] [address] CLIA# [id number] First Aid Attendant: Ludin Hutchison M.D. Performed By: #### S ####[facility] LABCLIA [id number] [address] [place]. HARD[facility] Comment on above: Order Comment: Speci men Type: DEVICE SPECIMENOrdering Facility: [facility] Address: [address] [place] [address] Result Comment: Rece ived in formalin, labeled as hardware removed L2-S1 and consists of two curved rods, each measuring 12.5 cm in length x 0.8 cm in diameter, 10 surgical screws, with attached U-shaped connector, each measuring 7.5 cm in length x 0.6 cm in diameter, and 10 washers, each measuring 1.0 cm in diameter. No tissue is present. No sections are submitted. The specimen is shown to Dr. Cochran. MISSY/judit 08/25/2023 Gross examination performed at [facility], [address] [address] CLIA# [id number] Performed By: #### S ####[facility] LABCLIA [id number] [address] OF [place] XR LUMBAR 2V AP/LATon 2023 XR LUMBAR 2V AP/LAT * * *Final Report* * * DATE OF EXAM: Aug 23 2023 5:07PM FLOR 5229 - XR LUMBAR 2V AP/LAT / PROCEDURE REASON: Radiculopathy, lumbar region * * * * Physician Interpretation * * * * EXAMINATION: XR LUMBAR 2V AP/LAT CLINICAL INFORMATION: 53 years old Female with adiculopathy, lumbar region COMPARISON: CT lumbar spine 02/27/2023 Fluoroscopic Radiation Summary: Plane A, Air Kerma: 9.9 mGy Dose Area Product (DAP): Fluoro time: 0:17 min:sec RESULT: Frontal and lateral fluoroscopic intraoperative images of the lumbar spine demonstrate ongoing postsurgical changes of redo posterior instrumented fusion extending from L2 to S1 with interbody cages at L2-L3, L3-L4 and L5-S1. Prior anterior interbody fusion L4-L5 with interbody cage and anterior plate with screws. Surgical retractors in the dorsal soft tissues. IMPRESSION: Intraoperative examination for surgical planning and documentation. Primary Therapist: SARAHI Transcribe Date/Time: Aug 24 2023 9:30A Dictated by : ANGELA MACIAS DO This examination was interpreted and the report reviewed and electronically signed by: ANGELA MACIAS DO on Aug 24 2023 9:33AM EST [id number] [facility] XR CHEST 2V FRONTAL/LATon [facility] XR Chest PA and Lateralon IMPRESSION: No acute radiographic abnormality. Primary Therapist: SARAHI Transcribe Date/Time: May 30 2023 4:40P Dictated by : RICKIE EDMONDS MD This examination was interpreted and the report reviewed and electronically signed by: RICKIE EDMONDS MD on May 30 2023 4:41PM [facility] DIVISION OF RADIOLOGY * * *Final Report* * * DATE OF EXAM: May 30 2023 4:39PM WOX 5291 - XR CHEST 2V FRONTAL/LAT / PROCEDURE REASON: Acute cough * * * * Physician Interpretation * * * * EXAMINATION: CHEST RADIOGRAPH (2 VIEW FRONTAL & LATERAL) CLINICAL HISTORY: Acute cough MQ: XC2_6 EXAM DATE/TIME: 05/30/2023 4:39 PM COMPARISON: Chest x-ray dated June 29, 2015 RESULT: Lines, tubes, and devices: None. Lungs and pleura: No consolidation. No lung mass. No pleural effusion. No pneumothorax. Cardiomediastinal silhouette: Normal cardiomediastinal silhouette. Bones and soft tissues: Spinal hardware just barely visualized in the lumbar spine. DIVISION OF RADIOLOGY [facility] * * *Final Report* * * DATE OF EXAM: May 30 2023 4:39PM WOX 5291 - XR CHEST 2V FRONTAL/LAT / PROCEDURE REASON: Acute cough * * * * Physician Interpretation * * * * EXAMINATION: CHEST RADIOGRAPH (2 VIEW FRONTAL & LATERAL) CLINICAL HISTORY: Acute cough MQ: XC2_6 EXAM DATE/TIME: 05/30/2023 4:39 PM COMPARISON: Chest x-ray dated June 29, 2015 RESULT: Lines, tubes, and devices: None. Lungs and pleura: No consolidation. No lung mass. No pleural effusion. No pneumothorax. Cardiomediastinal silhouette: Normal cardiomediastinal silhouette. Bones and soft tissues: Spinal hardware just barely visualized in the lumbar spine. IMPRESSION IMPRESSION: No acute radiographic abnormality. Primary Therapist: PSCB Transcribe Date/Time: May 30 2023 4:40P Dictated by : RICKIE EDMONDS MD This examination was interpreted and the report reviewed and electronically signed by: RICKIE EDMONDS MD on May 30 2023 4:41PM EST [facility] Radiology Study observation (narrative) [facility] XR Chest PA and LateralOrder ed By: [facility] Provider on 05-30-2023 [facility] HISTORY PHYSICALon HISTORY PHYSICAL HNO ID: [id number] Author: Wagner Cardoso MD Service: ? Author Type: Physician Type: HANDP Filed: 05/24/2023 7:18 AM Note Text: UPDATED PROCEDURAL SEDATION HISTORY AND PHYSICAL EXAMINATION SERVICE DATE: 05/24/2023 SERVICE TIME: 7:18 AM PHYSICAL EXAM MUST BE COMPLETED ON ADMISSION PROCEDURE: TF LO Procedure Indications: back and leg pain The History and Physical (completed in the past 30 days) has been reviewed and the patient has been examined. The contents accurately reflect the patient's condition with the following additions or revisions since the HANDP was completed. ASA Class: ASA Class:: Patient with mild systemic disease Examination indicates no changes. AIRWAY: Airway Visualization of Uvula: Yes Mouth opening greater than 2 fingerbreadths: Yes Neck Full Range of Motion: Yes LUNGS: Lungs clear to auscultation CARDIAC: Regular rhythm,Regular rate Provisional Diagnosis/Treatment Plan: transforaminal epidural steroid injection SEDATION GOAL: Moderate This HANDP can be found in the Electronic Medical Record dated 05/01/[address] Birch. SIGNATURE: Wagner Cardoso MD PATIENT NAME: Elsy Dinero DATE: May 24, 2023 TIME: 7:[address] [facility] OPERATIVE NOon 05-24-2023 OPERATIVE NO HNO ID: [id number] Author: Wagner Cardoso MD Service: ? Author Type: Physician Type: Operative Report Filed: 05/24/2023 8:32 AM Note Text: OPERATIVE/PROCEDURE REPORT LOG ID: [id number] Surgery/Procedure Date: 05/24/2023 Surgeon: Wagner Cardoso MD [employer]: none Procedure(s):Operation: right L4-L5 Transforaminal epidural steroid injection. Pre-Op/Pre-Procedure Diagnosis: Lumbosacral neuritis Post-Op Diagnosis: same Anesthesia: Local 0mg of IV versed was used with 4 min of intraservice monitoring time. Fluoroscopy time: 32.7 sec Time In: 08:17 am Time out: 08:21 am Estimated Blood Loss: None Specimens: None Drains: None Complications: None INDICATIONS: The patient has been referred by my colleague Dr Birch with concordant subjective, objective, and radiologic findings of Lumbar radiculitis, referred for diagnostic and therapeutic right L4-L5 Transforaminal epidural steroid injection with failure of prior conservative care with physical therapy and medications alone. At this time, the patient wishes to avoid surgery. This is the patient's 1st injection under my care. -bilateral L3 and L4 medial branches and L5 dorsal rami blocks on 05/25/2016 (no steroid) by Dr Esparza with diagnostic relief -L4-L5 interlaminar right paramedian approach LO performed 03/23/16 with relief of leg pain but no significant improvement in back pain by Dr Esparza -bilateral L4-L5 and L5-S1 intraarticular facet joint injections 07/22/15 with some relief of pain by Dr Esparza -left SIJ injection performed 06/10/[address] Esparza Spine surgery: -L4-5 anterior lumbar interbody fusion. There had been a plan to do L3 to ilium instrumented fusion; however, this was aborted on 01/07/[address] Birch - L2 to ilium instrumented fusion, L3, 4 and 5 laminectomy, L2-3, 3-4 and L5-S1 transforaminal lumbar interbody fusion on 02/23/[address] Birch -Removal of bilateral iliac screws on 05/17/[address] Birch due to lumbar radiculopathy PROCEDURE: After obtaining both verbal and written informed consent, the patient was placed in a prone position on the fluoroscopic table in [facility] procedure room, the patient's posterior lumbosacral spine was prepped and draped in usual sterile fashion using iodine. The patient was connected to noninvasive blood pressure, EKG, pulse oximetry monitoring, and monitored by a registered interventional nurse throughout the procedure. Before initiating procedure, all relevant information was verified in a time-out. One Skin wheal(s) were raised using 1% preservative-free lidocaine near the right L4-L5 pedicle which was localized by counting from the intersection of the iliac crest. Through the skin wheal a 22-gauge, 5-inch curved Quincke-tip spinal needle was inserted and advanced under direct fluoroscopic visualization in the AP, ipsilateral oblique and lateral planes, until the needle tip arrived at the 6 o'clock position of the right L4-L5 pedicle. Proper needle placement was confirmed with 2 cc of Omnipaque-180M nonionic contrast confirming good epidural flow of contrast and flow along the exiting right L4-L5 nerve root without any intravascular uptake of contrast seen under live direct fluoroscopic visualization in the AP, oblique, and lateral planes. At this point 80 mg Depo-Medrol and preservative- free 1% Lidocaine 2 cc were infused in the epidural space. Adequate hemostasis was obtained at the needle puncture site. The patient's back was cleaned and a sterile dressing was applied. The patient was taken conscious and in stable condition to the recovery room. No complications as a result of this procedure. Post procedure precautions and instructions were reviewed with the patient who verbalized understanding. I/primary surgeon/proceduralist performed the entire procedure. Significant Findings: L2-Ilium fusion .L4-5 spondylolisthesis. Concordant and sensitive. No vascular flow onDSA Pre-Op Pain: 7. Post-Op Pain: 0. Care Instructions: Discharge per protocol. Medications: See Epic medication section Appointment: Patient to return 4-5 weeks to clinic with pain diary. Offered PT in [place] Discharge Condition: Good condition for discharge. Patient discharged home when all discharge criterion met. Wagner Cardoso MD Staff Physician [facility] SIGNATURE: Wagner Cardoso MD PATIENT NAME: Elsy Dinero DATE: May 24, 2023 TIME: 8:23 AM PAGER/CONTACT #: [facility] MRI LUMBAR SPINE WO IVCONon 04-26-[address] [facility] [address] LUMBAR SPINE WO IVCONon 1 10-03-2021 [facility] DONNELL SCREENINGon 07-11-2022 [facility] XR FOOT GENERAL 3V AP/LAT/OB L LEFTon 06-16-2022 [facility] XR Foot - left AP and Latera l and obliqueon 06-16-2022 IMPRESSION: Degenera tive changes in the first digit. Overall findings similar to prior study. Primary Therapist: PSCB Transcribe Date/Time: Jun 16 2022 4:58P Dictated by : EMANUEL TORO MD This examination was interpreted and the report reviewed and electronically signed by: EMANUEL TORO MD on Jun 16 2022 5:01PM [facility] DIVISION OF RADIOLOGY * * *Final Report* * * DATE OF EXAM: Jun 16 2022 4:48PM WOX 5336 - XR FOOT 3V AP/LAT/OBL LT / PROCEDURE REASON: Arthritis of big toe * * * * Physician Interpretation * * * * EXAM TITLE: XR FOOT 3V AP/LAT/OBL LT EXAM DATE/TIME: 06/16/2022 4:48 PM COMPARISON: X-ray dated on 07/12/2019 CLINICAL INDICATION/HISTORY: Arthritis. TECHNIQUE: AP, lateral and oblique views of the left foot are presented. FINDINGS: No acute fractures or subluxations are noted in the left foot. Interphalangeal joint space narrowing is again noted in the first digit, with associated mild osteophyte formation and subchondral cyst formation. Subchondral cyst formation also noted in the first metatarsophalangeal joint. The mineralization of the bones is normal. There is no significant soft tissue swelling. DIVISION OF RADIOLOGY Provider, Enrike Reyna - 06/16/2022 * * *Final Report* * * DATE OF EXAM: Jun 16 2022 4:48PM WOX 5336 - XR FOOT 3V AP/LAT/OBL LT / PROCEDURE REASON: Arthritis of big toe * * * * Physician Interpretation * * * * EXAM TITLE: XR FOOT 3V AP/LAT/OBL LT EXAM DATE/TIME: 06/16/2022 4:48 PM COMPARISON: X-ray dated on 07/12/2019 CLINICAL INDICATION/HISTORY: Arthritis. TECHNIQUE: AP, lateral and oblique views of the left foot are presented. FINDINGS: No acute fractures or subluxations are noted in the left foot. Interphalangeal joint space narrowing is again noted in the first digit, with associated mild osteophyte formation and subchondral cyst formation. Subchondral cyst formation also noted in the first metatarsophalangeal joint. The mineralization of the bones is normal. There is no significant soft tissue swelling. IMPRESSION IMPRESSION: Degenerative changes in the first digit. Overall findings similar to prior study. Primary Therapist: PSCB Transcribe Date/Time: Jun 16 2022 4:58P Dictated by : EMANUEL TORO MD This examination was interpreted and the report reviewed and electronically signed by: EMANUEL TORO MD on Jun 16 2022 5:01PM EST [facility] Radiology Study observation (narrative) [facility] XR Foot - left AP and Latera l and obliqueOrdered By: [facility] Provider on 06-16-[address] [facility] [address] LUMBAR SPINE WO IVCONon 0 05-05-2022 [facility] EMG(NEURO/NI)on 03-28-2022 [facility] TYPE AND SCREEN,30 DAYon ABO O [facility] HIstorical Ab Scr Status Negative [facility] Rh Nom (Bld) Positive [facility] CBC W Auto Differential pane l (Bld)on 02-11-2022 Abs Immature Gran 0.03 k/uL <0.10 k/uL [facility] Basophils (Bld) [#/Vol] 0.04 10*3/uL <0.11 k/uL [facility] Basophils/100 WBC (Bld) 0.5 % [facility] Differential cell count method Nom (Bld) Auto [facility] Eosinophils (Bld) [#/Vol] 0.13 10*3/uL <0.46 k/uL [facility] Eosinophils/100 WBC (Bld) 1.7 % [facility] Erythrocyte distribution width (RBC) [Ratio] 13.1 % 11.5 - 15.0 % [facility] Hematocrit (Bld) [Volume fraction] 41.3 % 36.0 - 46.0 % [facility] Hemoglobin (Bld) [Mass/Vol] 13.2 g/dL 11.5 - 15.5 g/dL [facility] Immature Gran % 0.4 % [facility] Lymphocytes (Bld) [#/Vol] 2.48 10*3/uL 1.00 - 4.00 k/uL [facility] Lymphocytes/100 WBC (Bld) 32.5 % [facility] MCH (RBC) [Entitic mass] 29.2 pg 26.0 - 34.0 pg [facility] MCHC (RBC) [Mass/Vol] 32.0 g/dL 30.5 - 36.0 g/dL [facility] MCV (RBC) [Entitic vol] 91.4 fL 80.0 - 100.0 fL [facility] Monocytes (Bld) [#/Vol] 0.54 10*3/uL <0.87 k/uL [facility] Monocytes/100 WBC (Bld) 7.1 % [facility] Neutrophils (Bld) [#/Vol] 4.40 10*3/uL 1.45 - 7.50 k/uL [facility] Neutrophils/100 WBC (Bld) 57.8 % [facility] Nucleated RBC (Bld) [#/Vol] 10*3/uL <0.01 k/uL [facility] Nucleated RBC/100 WBC (Bld) [Ratio] 0.0 /100 WBC [facility] Platelet mean volume (Bld) [Entitic vol] 9.2 fL 9.0 - 12.7 fL [facility] Platelets (Bld) [#/Vol] 245 10*3/uL 150 - 400 k/uL [facility] RBC (Bld) [#/Vol] 4.52 10*6/uL 3.90 - 5.2 0 m/uL [facility] WBC (Bld) [#/Vol] 7.62 10*3/uL 3.70 - 11. 00 k/uL [facility] Comprehensive metabolic 2000 panelon 02-11-2022 Albumin [Mass/Vol] 4.9 g/dL 3.9 - 4.9 g/dL [facility] ALP [Catalytic activity/Vol] 91 U/L 34 - 123 U/L [facility] ALT [Catalytic activity/Vol] 21 U/L 7 - 38 U/L [facility] Anion gap [Moles/Vol] 13 mmol/L 9 - 18 mmol/L [facility] AST [Catalytic activity/Vol] 16 U/L 13 - 35 U/L [facility] Bilirubin [Mass/Vol] 0.4 mg/dL 0.2 - 1.3 mg/dL [facility] Calcium [Mass/Vol] 9.7 mg/dL 8.5 - 10. 2 mg/dL [facility] Chloride [Moles/Vol] 98 mmol/L 97 - 105 mmol/L [facility] CO2 [Moles/Vol] 24 mmol/L 22 - 30 mmol/L [facility] Creatinine [Mass/Vol] 0.79 mg/dL 0.58 - 0.96 mg/dL [facility] Estimated Glomerular Filtration Rate 90 mL/min/1.73m >=60 mL/min/1.73m [facility] Glucose [Mass/Vol] 99 mg/dL 74 - 99 mg/dL [facility] Potassium [Moles/Vol] 4.2 mmol/L 3.7 - 5.1 mmol/L [facility] Protein [Mass/Vol] 7.7 g/dL 6.3 - 8.0 g/dL [facility] Sodium [Moles/Vol] 135 mmol/L Low 136 - 144 mmol/L [facility] Urea nitrogen [Mass/Vol] 11 mg/dL 7 - 21 mg/dL [facility] XR Lumbar spine AP and Later milind 05-14-2021 IMPRESSION: Spondylosis and curvature of the lumbar spine. No fracture.. Primary Therapist: [facility] Transcribe Date/Time: May 14 2021 3:35P Dictated by : KELSI DO MD This examination was interpreted and the report reviewed and electronically signed by: KELSI DO MD on May 14 2021 3:36PM [facility] DIVISION OF RADIOLOGY * * *Final Report* * * DATE OF EXAM: May 14 2021 2:49PM WOX 5229 - XR LUMBAR 2V AP/LAT / PROCEDURE REASON: Spinal stenosis, lumbar region with neurogenic claudication * * * * Physician Interpretation * * * * Lumbar spine radiographs HISTORY: 50 years old Clinical information: Spinal stenosis, lumbar region with neurogenic claudication has a slipped disc bet. L4-5 and L5-S1 and is having surgery sometime, pain in both posterior hips and down the right leg no inj TECHNIQUE: Images: XR LUMBAR 2V AP/LAT Comparison: 05/13/2021. RESULT: Findings: For the purposes of this dictation the iliac crests are at the L4-5 level. 1.1 cm anterolisthesis of L4 on L5. Narrowing of the L4-5 and L5-S1 intervertebral disc spaces. No fracture. Left-sided convex curvature of the lower lumbar spine. SI joints are intact. Imaged bowel gas pattern is nonobstructed. DIVISION OF RADIOLOGY Provider, Enrike [facility] - 05/14/2021 * * *Final Report* * * DATE OF EXAM: May 14 2021 2:49PM WOX 5229 - XR LUMBAR 2V AP/LAT / PROCEDURE REASON: Spinal stenosis, lumbar region with neurogenic claudication * * * * Physician Interpretation * * * * Lumbar spine radiographs HISTORY: 50 years old Clinical information: Spinal stenosis, lumbar region with neurogenic claudication has a slipped disc bet. L4-5 and L5-S1 and is having surgery sometime, pain in both posterior hips and down the right leg no inj TECHNIQUE: Images: XR LUMBAR 2V AP/LAT Comparison: 05/13/2021. RESULT: Findings: For the purposes of this dictation the iliac crests are at the L4-5 level. 1.1 cm anterolisthesis of L4 on L5. Narrowing of the L4-5 and L5-S1 intervertebral disc spaces. No fracture. Left-sided convex curvature of the lower lumbar spine. SI joints are intact. Imaged bowel gas pattern is nonobstructed. IMPRESSION IMPRESSION: Spondylosis and curvature of the lumbar spine. No fracture.. Primary Therapist: PSCB Transcribe Date/Time: May 14 2021 3:35P Dictated by : KELSI DO MD This examination was interpreted and the report reviewed and electronically signed by: KELSI DO MD on May 14 2021 3:36PM EST [facility] Radiology Study observation (narrative) [facility] XR Lumbar spine AP and Later alOrdered By: [facility] Provider on 05-14-2021 [facility] Vital Signs Date Time Vital Sign Value Performing Clinician Faci riannay 02-24-2025 09:52-0400 Body mass index (BMI) [Ratio] 26.13 kg/m2 Ambrose Birch MD Work Phone: [facility] 02-24-2025 09:52-0400 Body weight 71.22 kg Ambrose Birch MD Work Phone: [facility] 02-21-2025 10:15-0400 Body mass index (BMI) [Ratio] 26.23 kg/m2 Krislyn Aberegg PA Work Phone: [facility] 02-21-2025 10:15-0400 Body temperature 97.81 [degF] Krislyn Aberegg PA Work Phone: [facility] 02-21-2025 10:15-0400 Body weight 71.5 kg Krislyn Aberegg PA Work Phone: [facility] 02-21-2025 10:15-0400 Diastolic blood pressure 83 mm[Hg] Krislyn Aberegg PA Work Phone: [facility] 02-21-2025 10:15-0400 Heart rate 80 /min Krislyn Aberegg PA Work Phone: [facility] 02-21-2025 10:15-0400 Respiratory rate 18 /min Krislyn Aberegg PA Work Phone: [facility] 02-21-2025 10:15-0400 SaO2% (BldA) [Mass fraction] 99 % Krislyn Aberegg PA Work Phone: [facility] 02-21-2025 10:15-0400 Systolic blood pressure 135 mm[Hg] Krislyn Aberegg PA Work Phone: [facility] 12-02-2024 09:40-0400 Body mass index (BMI) [Ratio] 26.99 kg/m2 Ambrose Birch MD Work Phone: [facility] 12-02-2024 09:40-0400 Body weight 73.03 kg Ambrose Birch MD Work Phone: [facility] 09-30-2024 09:01-0500 Body mass index (BMI) [Ratio] 27.05 kg/m2 Wendy Stone APRN.[employer] Work Phone: [facility] 09-30-2024 09:01-0500 Body temperature 97 [degF] Wendy Stone APRN.[employer] Work Phone: [facility] 09-30-2024 09:01-0500 Body weight 73.2 kg Wendy Stone APRN.[employer] Work Phone: [facility] 09-30-2024 09:01-0500 Diastolic blood pressure 72 mm[Hg] Wendy Stone APRN.[employer] Work Phone: [facility] 09-30-2024 09:01-0500 Heart rate 58 /min Wendy Stone APRN.[employer] Work Phone: [facility] 09-30-2024 09:01-0500 Respiratory rate 18 /min Wendy Stone APRN.[employer] Work Phone: [facility] 09-30-2024 09:01-0500 SaO2% (BldA) [Mass fraction] 100 % Wendy Stone APRN.[employer] Work Phone: [facility] 09-30-2024 09:01-0500 Systolic blood pressure 110 mm[Hg] Wendy Stone APRN.[employer] Work Phone: [facility] 09-02-2024 09:48-0500 Body mass index (BMI) [Ratio] 26.64 kg/m2 Ambrose Birch MD Work Phone: [facility] 09-02-2024 09:48-0500 Body weight 72.1 kg Ambrose Birch MD Work Phone: [facility] 08-30-2024 12:17-0500 Body mass index (BMI) [Ratio] 26.48 kg/m2 Stephanie Espinoza PA-C Work Phone: [facility] 08-30-2024 12:17-0500 Body temperature 98.1 [degF] Stephanie Joséutter PA-C Work Phone: [facility] 01-24-2025 12:17-0500 Body weight 71.67 kg Stephanie Clutter PA-C Work Phone: [facility] 08-30-2024 12:17-0500 Diastolic blood pressure 58 mm[Hg] Stephanie Clutter PA-C Work Phone: [facility] 08-30-2024 12:17-0500 Heart rate 89 /min Stephanie Clutter PA-C Work Phone: [facility] 08-30-2024 12:17-0500 Respiratory rate 16 /min Stephanie Clutter PA-C Work Phone: [facility] 08-30-2024 12:17-0500 SaO2% (BldA) [Mass fraction] 96 % Stephanie Clutter PA-C Work Phone: [facility] 08-30-2024 12:17-0500 Systolic blood pressure 129 mm[Hg] Stephanie Clutter PA-C Work Phone: [facility] 06-06-2024 12:21-0400 Body mass index (BMI) [Ratio] 26.48 kg/m2 Izaiah Praisler-Wood 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 Work Phone: [facility] 06-06-2024 12:21-0400 Body temperature 97 [degF] Izaiah Praisler-Wood 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 Work Phone: [facility] 06-06-2024 12:21-0400 Body weight 71.67 kg Izaiah Praisler-Wood 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 Work Phone: [facility] 06-06-2024 12:21-0400 Diastolic blood pressure 66 mm[Hg] Izaiah Praisler-Wood 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 Work Phone: [facility] 06-06-2024 12:21-0400 Heart rate 84 /min Izaiah Praisler-Wood 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 Work Phone: [facility] 06-06-2024 12:21-0400 Respiratory rate 16 /min Izaiah Praisler-Wood 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 Work Phone: [facility] 06-06-2024 12:21-0400 SaO2% (BldA) [Mass fraction] 97 % Izaiah Medina APRN.[employer] Work Phone: [facility] 06-06-2024 12:21-0400 Systolic blood pressure 120 mm[Hg] Izaiah Medina APRN.[employer] Work Phone: [facility] 06-03-2024 10:18-0400 Body height 164.5 cm Ambrose Birch MD Work Phone: [facility] 06-03-2024 10:18-0400 Body mass index (BMI) [Ratio] 26.5 kg/m2 Ambrose Birch MD Work Phone: [facility] 06-03-2024 10:18-0400 Body weight 71.7 kg Ambrose Birch MD Work Phone: [facility] 05-31-2024 15:26-0400 Body mass index (BMI) [Ratio] 27.32 kg/m2 Urbano Amaya MD Work Phone: [facility] 05-31-2024 15:26-0400 Body temperature 97.3 [degF] Urbano Amaya MD Work Phone: [facility] 05-31-2024 15:26-0400 Body weight 72.2 kg Urbano Amaya MD Work Phone: [facility] 05-31-2024 15:26-0400 Diastolic blood pressure 74 mm[Hg] Urbano Amaya MD Work Phone: [facility] 05-31-2024 15:26-0400 Heart rate 96 /min Urbano Amaya MD Work Phone: [facility] 05-31-2024 15:26-0400 Respiratory rate 18 /min Urbano Amaya MD Work Phone: [facility] 05-31-2024 15:26-0400 SaO2% (BldA) [Mass fraction] 98 % Urbano Amaya MD Work Phone: [facility] 05-31-2024 15:26-0400 Systolic blood pressure 115 mm[Hg] Urbano Amaya MD Work Phone: [facility] 04-15-2024 10:47-0400 Body height 162.6 cm Lexy Francis MD Work Phone: [facility] 04-15-2024 10:47-0400 Body mass index (BMI) [Ratio] 27.09 kg/m2 Lexy Francis MD Work Phone: [facility] 04-15-2024 10:47-0400 Body weight 71.58 kg Lexy Francis MD Work Phone: [facility] 04-15-2024 10:47-0400 Heart rate 74 /min Lexy Francis MD Work Phone: [facility] 04-15-2024 10:47-0400 Respiratory rate 20 /min Lexy Francis MD Work Phone: [facility] 04-15-2024 10:47-0400 SaO2% (BldA) [Mass fraction] 99 % Lexy Francis MD Work Phone: [facility] 04-04-2024 12:50-0400 Body height 163.5 cm Nusrat Alva APRN.[employer] Work Phone: [facility] 04-04-2024 12:50-0400 Body mass index (BMI) [Ratio] 26.6 kg/m2 Nusrat CabreraMilton 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 Work Phone: [facility] 04-04-2024 12:50-0400 Body weight 71.1 kg Nusrat Alva 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 Work Phone: [facility] 04-04-2024 12:50-0400 Diastolic blood pressure 72 mm[Hg] Nusrat CabreraMilton 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 Work Phone: [facility] 04-04-2024 12:50-0400 Heart rate 89 /min Nusrat Alva 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 Work Phone: [facility] 04-04-2024 12:50-0400 Respiratory rate 16 /min Nusrat Alva 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 Work Phone: [facility] 04-04-2024 12:50-0400 SaO2% (BldA) [Mass fraction] 98 % Nusrat Sungr 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 Work Phone: [facility] 04-04-2024 12:50-0400 Systolic blood pressure 114 mm[Hg] Nusrat Alva 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 Work Phone: [facility] 04-01-2024 18:24-0400 Body mass index (BMI) [Ratio] 26.49 kg/m2 Krislyn Aberegg PA Work Phone: [facility] 04-01-2024 18:24-0400 Body temperature 98.6 [degF] Krislyn Aberegg PA Work Phone: [facility] 04-01-2024 18:24-0400 Body weight 72.2 kg Krislyn Aberegg PA Work Phone: [facility] 04-01-2024 18:24-0400 Diastolic blood pressure 52 mm[Hg] Krislyn Aberegg PA Work Phone: [facility] 04-01-2024 18:24-0400 Heart rate 95 /min Krislyn Aberegg PA Work Phone: [facility] 04-01-2024 18:24-0400 Respiratory rate 21 /min Krislyn Aberegg PA Work Phone: [facility] 04-01-2024 18:24-0400 SaO2% (BldA) [Mass fraction] 97 % Krislyn Aberegg PA Work Phone: [facility] 04-01-2024 18:24-0400 Systolic blood pressure 110 mm[Hg] Krislyn Aberegg PA Work Phone: [facility] 12-04-2023 10:09-0400 Body height 165.1 cm Ambrose Birch MD Work Phone: [facility] 12-04-2023 10:090400 Body mass index (BMI) [Ratio] 27.54 kg/m2 Ambrose Birch MD Work Phone: [facility] 12-04-2023 [id number] Body weight 75.07 kg Ambrose Birch MD Work Phone: [facility] 11-21-2023 13:51-0400 Body temperature 97.81 [degF] Khoi Lopez 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 Work Phone: [facility] 11-21-2023 13:51-0400 Body weight 74 kg Khoi Lopez 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 Work Phone: [facility] 11-21-2023 13:51-0400 Diastolic blood pressure 71 mm[Hg] Khoi Lopez 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 Work Phone: [facility] 11-21-2023 13:51-0400 Heart rate 90 /min Khoi Lopez 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 Work Phone: [facility] 11-21-2023 13:51-0400 Respiratory rate 20 /min Khoi Lopez 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 Work Phone: [facility] 11-21-2023 13:51-0400 SaO2% (BldA) [Mass fraction] 98 % Khoi Lopez 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 Work Phone: [facility] 11-21-2023 13:51-0400 Systolic blood pressure 129 mm[Hg] Khoi Lopez 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 Work Phone: [facility] 11-12-2023 10:51-0400 Body temperature 98.8 [degF] Tamika Roca 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 Work Phone: [facility] 11-12-2023 10:51-0400 Body weight 76 kg Tamika Roca 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 Work Phone: [facility] 04-07-2024 10:51-0400 Diastolic blood pressure 66 mm[Hg] Tamika Roca 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 Work Phone: [facility] 11-12-2023 10:51-0400 Heart rate 116 /min Tamika Roca 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 Work Phone: [facility] 11-12-2023 10:51-0400 Respiratory rate 18 /min Tamika Roca 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 Work Phone: [facility] 11-12-2023 10:51-0400 SaO2% (BldA) [Mass fraction] 99 % Tamika Roca 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 Work Phone: [facility] 11-12-2023 10:51-0400 Systolic blood pressure 122 mm[Hg] Tamika Orca 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 Work Phone: [facility] 09-18-2023 09:51-0500 Body temperature 97.3 [degF] Yulissa Pardo PT Work Phone: [facility] 09-18-2023 09:51-0500 Diastolic blood pressure 78 mm[Hg] Yulissa Pardo PT Work Phone: [facility] 09-18-2023 09:51-0500 Heart rate 73 /min Yulissa Pardo PT Work Phone: [facility] 09-18-2023 09:51-0500 Respiratory rate 18 /min Yulissa Pardo PT Work Phone: [facility] 09-18-2023 09:51-0500 SaO2% (BldA) [Mass fraction] 99 % Yulissa Pardo PT Work Phone: [facility] 09-18-2023 09:51-0500 Systolic blood pressure 128 mm[Hg] Yulissa Pardo PT Work Phone: [facility] 09-12-2023 09:16-0500 Body temperature 96.69 [degF] Lou Rodriguez CYTOLOGY TEACHER Work Phone: [facility] 09-12-2023 09:16-0500 Heart rate 86 /min Lou Jennifer CYTOLOGY TEACHER Work Phone: [facility] 09-12-2023 09:16-0500 Respiratory rate 18 /min Lou Jennifer CYTOLOGY TEACHER Work Phone: [facility] 09-12-2023 09:16-0500 SaO2% (BldA) [Mass fraction] 97 % Lou Jennifer CYTOLOGY TEACHER Work Phone: [facility] 07-03-2023 13:24-0500 Body weight 74.48 kg Ambrose Birch MD Work Phone: [facility] 05-30-2023 16:12-0400 Body temperature 99 [degF] Khoi Pendlebury 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 Work Phone: [facility] 05-30-2023 16:12-0400 Body weight 74.84 kg Khoi Pendlebury 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 Work Phone: [facility] 05-30-2023 16:12-0400 Diastolic blood pressure 84 mm[Hg] Khoi Pendlebury 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 Work Phone: [facility] 05-30-2023 16:12-0400 Heart rate 89 /min Khoi Pendlebury 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 Work Phone: [facility] 05-30-2023 16:12-0400 Respiratory rate 20 /min Khoi Pendlebury 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 Work Phone: [facility] 05-30-2023 16:12-0400 SaO2% (BldA) [Mass fraction] 99 % Khoi Pendlebury 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 Work Phone: [facility] 05-30-2023 16:12-0400 Systolic blood pressure 116 mm[Hg] Khoi Pendlebury 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 Work Phone: [facility] 05-01-2023 12:59-0400 Body weight 73.94 kg Ambrose Birch MD Work Phone: [facility] 05-01-2023 12:59-0400 Diastolic blood pressure 57 mm[Hg] Ambrose Birch MD Work Phone: [facility] 05-01-2023 12:59-0400 Heart rate 83 /min Ambrose Birch MD Work Phone: [facility] 05-01-2023 12:59-0400 SaO2% (BldA) [Mass fraction] 100 % Ambrose Birch MD Work Phone: [facility] 05-01-2023 12:59-0400 Systolic blood pressure 124 mm[Hg] Ambrose Birch MD Work Phone: [facility] 03-23-2023 15:26-0400 Body height 167.6 cm Ambrose Birch MD Work Phone: [facility] 03-23-2023 15:26-0400 Body weight 74.93 kg Ambrose Birch MD Work Phone: [facility] 03-23-2023 15:26-0400 Diastolic blood pressure 71 mm[Hg] Ambrose Birch MD Work Phone: [facility] 03-23-2023 15:26-0400 Heart rate 92 /min Ambrose Birch MD Work Phone: [facility] 03-23-2023 15:26-0400 SaO2% (BldA) [Mass fraction] 99 % Ambrose Birch MD Work Phone: [facility] 03-23-2023 15:26-0400 Systolic blood pressure 107 mm[Hg] Ambrose Birch MD Work Phone: [facility] 02-13-2023 10:50-0400 Body weight 74.39 kg Ambrose Birch MD Work Phone: [facility] 02-13-2023 10:50-0400 Diastolic blood pressure 63 mm[Hg] Ambrose Birch MD Work Phone: [facility] 02-13-2023 10:50-0400 Heart rate 91 /min Ambrose Birch MD Work Phone: [facility] 02-13-2023 10:50-0400 SaO2% (BldA) [Mass fraction] 97 % Ambrose Birch MD Work Phone: [facility] 02-13-2023 10:50-0400 Systolic blood pressure 143 mm[Hg] Ambrose Birch MD Work Phone: [facility] 02-09-2023 09:08-0400 Body weight 74.39 kg Elvin Diaz MD Work Phone: [facility] 02-09-2023 09:08-0400 Diastolic blood pressure 68 mm[Hg] Elvin Diaz MD Work Phone: [facility] 02-09-2023 09:08-0400 Heart rate 80 /min Elvin Diaz MD Work Phone: [facility] 02-09-2023 09:08-0400 Respiratory rate 16 /min Elvin Diaz MD Work Phone: [facility] 02-09-2023 09:08-0400 Systolic blood pressure 124 mm[Hg] Elvin Diaz MD Work Phone: [facility] 10-14-2022 15:22-0500 Body height 167.6 cm Cristóbal Knowles MD Work Phone: [facility] 10-14-2022 15:22-0500 Body weight 78.47 kg Cristóbal Knowles MD Work Phone: [facility] 10-14-2022 15:22-0500 Diastolic blood pressure 64 mm[Hg] Cristóbal Knowles MD Work Phone: [facility] 10-14-2022 15:22-0500 Heart rate 92 /min Cristóbal Knowles MD Work Phone: [facility] 10-14-2022 15:22-0500 SaO2% (BldA) [Mass fraction] 100 % Cristóbal Knowles MD Work Phone: [facility] 10-14-2022 15:22-0500 Systolic blood pressure 137 mm[Hg] Cristóbal Knowles MD Work Phone: [facility] 09-18-2022 11:21-0500 Body temperature 97.7 [degF] Izaiah Praisler-Wood 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 Work Phone: [facility] 09-18-2022 11:21-0500 Body weight 78.56 kg Izaiah Praisler-Wood 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 Work Phone: [facility] 09-18-2022 11:21-0500 Diastolic blood pressure 78 mm[Hg] Izaiah Praisler-Wood 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 Work Phone: [facility] 09-18-2022 11:21-0500 Heart rate 80 /min Izaiah Praisler-Wood 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 Work Phone: [facility] 09-18-2022 11:21-0500 Respiratory rate 18 /min Izaiah Praisler-Wood 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 Work Phone: [facility] 09-18-2022 11:21-0500 SaO2% (BldA) [Mass fraction] 99 % Izaiah Praisler-Wood 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 Work Phone: [facility] 09-18-2022 11:21-0500 Systolic blood pressure 120 mm[Hg] Izaiah Praisler-Wood 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 Work Phone: [facility] 09-12-2022 13:20-0500 Body height 167.6 cm Ambrose Birch MD Work Phone: [facility] 09-12-2022 13:20-0500 Body weight 78.47 kg Ambrose Birch MD Work Phone: [facility] 09-12-2022 13:20-0500 Diastolic blood pressure 60 mm[Hg] Ambrose Birch MD Work Phone: [facility] 09-12-2022 13:20-0500 Heart rate 94 /min Ambrose Birch MD Work Phone: [facility] 09-12-2022 13:20-0500 Systolic blood pressure 126 mm[Hg] Ambrose iBrch MD Work Phone: [facility] 07-18-2022 08:49-0500 Body weight 78.93 kg Ambrose Birch MD Work Phone: [facility] 07-18-2022 08:49-0500 Diastolic blood pressure 63 mm[Hg] Ambrose Birch MD Work Phone: [facility] 07-18-2022 08:49-0500 Heart rate 88 /min Ambrose Birch MD Work Phone: [facility] 07-18-2022 08:49-0500 SaO2% (BldA) [Mass fraction] 96 % Ambrose Birch MD Work Phone: [facility] 07-18-2022 08:49-0500 Systolic blood pressure 135 mm[Hg] Ambrose Birch MD Work Phone: [facility] 07-06-2022 10:49-0500 Diastolic blood pressure 73 mm[Hg] Camille Leo APRN.[employer] Work Phone: [facility] 07-06-2022 10:49-0500 Heart rate 76 /min Camille Leo APRN.[employer] Work Phone: [facility] 07-06-2022 10:49-0500 SaO2% (BldA) [Mass fraction] 100 % Camille Leo APRN.[employer] Work Phone: [facility] 07-06-2022 10:49-0500 Systolic blood pressure 118 mm[Hg] Camille Leo APRN.[employer] Work Phone: [facility] 07-04-2022 12:50-0500 Body temperature 96.69 [degF] Elvin Diaz MD Work Phone: [facility] 07-04-2022 12:50-0500 Body weight 76.2 kg Elvin Diaz MD Work Phone: [facility] 07-04-2022 12:50-0500 Diastolic blood pressure 68 mm[Hg] Elvin Diaz MD Work Phone: [facility] 07-04-2022 12:50-0500 Heart rate 80 /min Elvin Diaz MD Work Phone: [facility] 07-04-2022 12:50-0500 Respiratory rate 18 /min Elvin Diaz MD Work Phone: [facility] 07-04-2022 12:50-0500 Systolic blood pressure 114 mm[Hg] Elvin Diaz MD Work Phone: [facility] 06-08-2022 17:07-0400 Body weight 73.48 kg 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 Work Phone: [facility] 06-08-2022 17:07-0400 Diastolic blood pressure 68 mm[Hg] 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 Work Phone: [facility] 06-08-2022 17:07-0400 Heart rate 68 /min 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 Work Phone: [facility] 06-08-2022 17:07-0400 Respiratory rate 16 /min 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 Work Phone: [facility] 06-08-2022 17:07-0400 Systolic blood pressure 118 mm[Hg] 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 Work Phone: [facility] 06-02-2022 11:38-0400 Body height 167.6 cm Ambrose Birch MD Work Phone: [facility] 06-02-2022 11:38-0400 Body weight 74.39 kg Ambrose Birch MD Work Phone: [facility] 06-02-2022 11:38-0400 Diastolic blood pressure 78 mm[Hg] Ambrose Birch MD Work Phone: [facility] 06-02-2022 11:38-0400 Heart rate 82 /min Ambrose Birch MD Work Phone: [facility] 06-02-2022 11:38-0400 SaO2% (BldA) [Mass fraction] 100 % Ambrose Birch MD Work Phone: [facility] 06-02-2022 11:38-0400 Systolic blood pressure 119 mm[Hg] Ambrose Birch MD Work Phone: [facility] 05-09-2022 13:08-0400 Body height 167.6 cm Ambrose Birch MD Work Phone: [facility] 05-09-2022 13:08-0400 Body weight 73.94 kg Ambrose Birch MD Work Phone: [facility] 05-09-2022 13:08-0400 Diastolic blood pressure 72 mm[Hg] Ambrose Birhc MD Work Phone: [facility] 05-09-2022 13:08-0400 Heart rate 77 /min Ambrose Birch MD Work Phone: [facility] 05-09-2022 13:08-0400 SaO2% (BldA) [Mass fraction] 97 % Ambrose Birch MD Work Phone: [facility] 05-09-2022 13:08-0400 Systolic blood pressure 120 mm[Hg] Ambrose Birch MD Work Phone: [facility] 04-21-2022 11:26-0400 Body height 165.1 cm Ambrose Birch MD Work Phone: [facility] 04-21-2022 11:26-0400 Body weight 72.8 kg Ambrose Birch MD Work Phone: [facility] 04-21-2022 11:26-0400 Diastolic blood pressure 62 mm[Hg] Ambrose Birch MD Work Phone: [facility] 04-21-2022 11:26-0400 Heart rate 76 /min Ambrose Birch MD Work Phone: [facility] 04-21-2022 11:26-0400 Systolic blood pressure 113 mm[Hg] Ambrose Birch MD Work Phone: [facility] 03-29-2022 11:05-0400 Body weight 69.4 kg Elvin Diaz MD Work Phone: [facility] 03-29-2022 11:05-0400 Diastolic blood pressure 76 mm[Hg] Elvin Diaz MD Work Phone: [facility] 03-29-2022 11:05-0400 Heart rate 76 /min Elvin Diaz MD Work Phone: [facility] 03-29-2022 11:05-0400 Respiratory rate 16 /min Elvin Diaz MD Work Phone: [facility] 03-29-2022 11:05-0400 Systolic blood pressure 122 mm[Hg] Elvin Diaz MD Work Phone: [facility] 03-10-2022 14:28-0400 Body height 165.1 cm Ambrose Birch MD Work Phone: [facility] 03-10-2022 14:28-0400 Body temperature 97.3 [degF] Ambrose Birch MD Work Phone: [facility] 03-10-2022 14:28-0400 Body weight 69.4 kg Ambrose Birch MD Work Phone: [facility] 03-10-2022 14:28-0400 Diastolic blood pressure 57 mm[Hg] Ambrose Birch MD Work Phone: [facility] 03-10-2022 14:28-0400 Heart rate 75 /min Ambrose Birch MD Work Phone: [facility] 03-10-2022 14:28-0400 SaO2% (BldA) [Mass fraction] 98 % Ambrose Birch MD Work Phone: [facility] 03-10-2022 14:28-0400 Systolic blood pressure 124 mm[Hg] Ambrose Birch MD Work Phone: [facility] 02-11-2022 14:11-0400 Body height 167.[address] [facility] 1 Work Phone: [facility] 02-11-2022 14:11-0400 Body temperature 97.3 [degF] Pacc 1 Work Phone: [facility] 02-11-2022 14:11-0400 Body weight 70.76 kg Pacc 1 Work Phone: [facility] 02-11-2022 14:11-0400 Diastolic blood pressure 81 mm[Hg] Pacc 1 Work Phone: [facility] 02-11-2022 14:11-0400 Heart rate 64 /min Pacc 1 Work Phone: [facility] 02-11-2022 14:11-0400 Respiratory rate 16 /min Pacc 1 Work Phone: [facility] 02-11-2022 14:11-0400 SaO2% (BldA) [Mass fraction] 100 % Pacc 1 Work Phone: [facility] 02-11-2022 14:11-0400 Systolic blood pressure 134 mm[Hg] Pacc 1 Work Phone: [facility] 01-20-2022 18:58-0400 Body temperature 97.11 [degF] Elvin Diaz MD Work Phone: [facility] 01-20-2022 18:58-0400 Diastolic blood pressure 74 mm[Hg] Elvin Diaz MD Work Phone: [facility] 01-20-2022 18:58-0400 Heart rate 80 /min Elvin Diaz MD Work Phone: [facility] 01-20-2022 18:58-0400 Respiratory rate 16 /min Elvin Diaz MD Work Phone: [facility] 01-20-2022 18:58-0400 Systolic blood pressure 130 mm[Hg] Elvin Diaz MD Work Phone: [facility] 01-20-2022 13:19-0400 Body temperature 96.4 [degF] Ambrose Birch MD Work Phone: [facility] 01-20-2022 13:19-0400 Diastolic blood pressure 74 mm[Hg] Ambrose Birch MD Work Phone: [facility] 01-20-2022 13:19-0400 Heart rate 70 /min Ambrose Birch MD Work Phone: [facility] 01-20-2022 13:19-0400 Systolic blood pressure 129 mm[Hg] Ambrose Birch MD Work Phone: [facility] 11-15-2021 15:08-0400 Body height 167.6 cm Drew Hobson MD Work Phone: [facility] 11-15-2021 15:08-0400 Body weight 70.76 kg Drew Hobson MD Work Phone: [facility] 11-15-2021 15:08-0400 Diastolic blood pressure 63 mm[Hg] Drew Hobson MD Work Phone: [facility] 11-15-2021 15:08-0400 Heart rate 74 /min Drew Hobson MD Work Phone: [facility] 11-15-2021 15:08-0400 Systolic blood pressure 130 mm[Hg] Drew Hobson MD Work Phone: [facility] Encounters Encounter Date Encounter Type Care Provider Facility Start: 02-25-2025 End: 02-25-2025 Patient encounter procedure Tim Tripp DO Work Phone: [facility] Comment on above: Tendinitis of thumb (Primary Dx); De Quervain's tenosynovitis, left Start: 02-25-2025 End: 02-25-2025 ambulatory TIM TRIPP Facility:[facility] Start: 02-24-2025 End: 02-24-2025 Office outpatient visit 15 minutes Ambrose Birch MD Work Phone: Neurology Comment on above: 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 (Primary Dx) Start: 02-24-2025 End: 02-24-2025 ambulatory AMBROSE BIRCH Facility:[facility] Start: 02-21-2025 End: 02-21-2025 Subsequent hospital visit by physician Jovani [facility] [place] Work Phone: Radiology Comment on above: Pain of left thumb [ M79.645] Start: 02-21-2025 End: 02-21-2025 Patient encounter procedure Africa CHAU Work Phone: [facility] Comment on above: Pain of left thumb ( Primary Dx); De Quervain's tenosynovitis, left Start: 02-21-2025 End: 02-21-2025 ambulatory ELVIN DIAZ Facility:[facility] Start: 02-14-2025 End: 02-14-2025 Telephone encounter Elvin Diaz MD Work Phone: Internal Medicine [place] Comment on above: Lab Orders Start: 12-24-2024 End: 12-24-2024 ambulatory FUAD RUTLEDGE Facility:[facility] Start: 12-19-2024 End: 12-19-2024 Telephone encounter Fuad Rutledge MD Work Phone: Pain Management Comment on above: Patient Question (Up coming Injection Procedure) Start: 12-02-2024 End: 12-02-2024 Office outpatient visit 15 minutes Ambrose Birch MD Work Phone: Neurology Comment on above: Spinal stenosis of l umbar region with neurogenic claudication (Primary Dx) Start: 12-02-2024 End: 12-02-2024 ambulatory AMBROSE BIRCH Facility:[facility] Start: 10-25-2024 End: 10-25-2024 ambulatory MAHESH WILDER Facility:[facility] Start: 10-25-2024 End: 10-25-2024 Subsequent hospital visit by physician Maria Dolores [facility] (I-Stat) Work Phone: Cat Scan Comment on above: Spinal stenosis of l umbar region with neurogenic claudication [M48.062] Start: 10-17-2024 End: 10-17-2024 Telephone encounter Ambrose Birch MD Work Phone: Neurology Start: 09-30-2024 End: 09-30-2024 Subsequent hospital visit by physician Xr [facility] Work Phone: Radiology Comment on above: Acute cough [R05.1] Start: 09-30-2024 End: 09-30-2024 ambulatory MERCEDEZ GASTELUM Facility:[facility] Start: 09-30-2024 End: 09-30-2024 Patient encounter procedure Wendy Stone APRN.[employer] Work Phone: [facility] Comment on above: Acute cough (Primary Dx); Rhinosinusitis Start: 09-18-2024 End: 09-18-2024 Telephone encounter Ambrose Birch MD Work Phone: Neurology Start: 09-05-2024 End: 09-06-2024 Telephone encounter Ambrose Birch MD Work Phone: Neurology Comment on above: 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 - [employer] ther Start: 09-02-2024 End: 09-02-2024 ambulatory AMBROSE BIRCH Facility:[facility] Start: 09-02-2024 End: 09-02-2024 Office outpatient visit 25 minutes Ambrose Birch MD Work Phone: Neurology Comment on above: Spinal stenosis of l umbar region with neurogenic claudication (Primary Dx) Start: 08-30-2024 End: 08-30-2024 Office outpatient visit 25 minutes Stephanie Espinoza PA-C Work Phone: [facility] Comment on above: Wound cellulitis (Pr imary Dx) Start: 08-30-2024 End: 08-30-2024 ambulatory ELVIN DIAZ Facility:[facility] Start: 08-28-2024 End: 09-02-2024 Refill Alden Dooley PA-C Work Phone: [facility] [place] Comment on above: Refill Request Start: 06-06-2024 End: 06-06-2024 Patient encounter procedure Izaiah Medina APRN.[employer] Work Phone: [facility] Comment on above: Bacterial sinusitis (Primary Dx) Start: 06-06-2024 End: 06-06-2024 ambulatory ELVIN DIAZ Facility:[facility] Start: 06-03-2024 End: 06-03-2024 Telephone encounter Ambrose Birch MD Work Phone: Neurology Start: 06-03-2024 End: 06-03-2024 ambulatory AMBROSE BIRCH Facility:[facility] Start: 06-03-2024 End: 06-03-2024 Office outpatient visit 15 minutes Ambrose Birch MD Work Phone: Neurology Comment on above: Radiculopathy, lumba r region (Primary Dx) Start: 05-31-2024 End: 05-31-2024 ambulatory ELVIN DIAZ Facility:[facility] Start: 05-31-2024 End: 05-31-2024 Office outpatient visit 25 minutes Urbano Amaya MD Work Phone: [facility] Comment on above: Acute non-recurrent sinusitis, unspecified location (Primary Dx) Start: 04-15-2024 End: 04-15-2024 ambulatory LEXY FRANCIS Facility:[facility] Start: 04-15-2024 End: 04-15-2024 Patient encounter procedure Lexy Francis MD Work Phone: Endocrinology Comment on above: Hirsutism Start: 04-04-2024 End: 04-04-2024 ambulatory NUSRAT ALVA Facility:[facility] Start: 04-04-2024 End: 04-04-2024 Patient encounter procedure Nusrat Alva APRN.WOODEN BOAT BUILDER Work Phone: Internal Medicine [place] Comment on above: Wellness examination (Primary Dx); Hirsutism; Gastroesophageal reflux disease without esophagitis; Pure hypercholesterolemia; Anemia, unspecified type; Asthma with chronic obstructive pulmonary disease (COPD) (HCC); Vitamin D deficiency; Screening for depression; Encounter for screening examination for other mental health and behavioral disorders; Encounter for screening for lung cancer; Well woman exam Start: 04-04-2024 End: 04-04-2024 Patient encounter status Nusrat Alva 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 Work Phone: [facility] Start: 04-02-2024 End: 04-02-2024 Telephone encounter Africa CHAU Work Phone: [facility] Comment on above: Results Start: 04-01-2024 End: 04-01-2024 ambulatory ELVIN DIAZ Facility:[facility] Start: 04-01-2024 End: 04-01-2024 Patient encounter procedure Africa CHAU Work Phone: [facility] Comment on above: Upper respiratory tr act infection, unspecified type (Primary Dx) Start: 03-06-2024 Telephone encounter Ambrose beasley MD Work Phone: Neurology Comment on above: 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 - O ther Start: 03-05-2024 Refill Elvin nichols MD Work Phone: Internal Medicine [place] Comment on above: Refill Request; Appo intment Start: 03-04-2024 End: 03-04-2024 Refill Becky Sun PA-C Work Phone: Internal Medicine [place] Comment on above: Refill Request Start: 02-20-2024 Telephone encounter Ambrose beasley MD Work Phone: Neurology Comment on above: 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 - O ther; Patient Update Start: 12-19-2023 Telephone encounter Ambrose beasley MD Work Phone: Neurosurgery Comment on above: Forms Start: 12-15-2023 Documentation procedure Mammog keren Coordinator [facility] Department Start: 12-15-2023 Letter encounter Mammography Coordinator [facility] Start: 12-14-2023 End: 12-14-2023 Subsequent hospital visit by physician Screen Mammo [facility] Mammogram Comment on above: Encounter for screen ing mammogram for breast cancer [Z12.31] Start: 12-04-2023 End: 12-04-2023 Patient encounter procedure Ambrose Birch MD Work Phone: Neurology Comment on above: Radiculopathy, lumba r region (Primary Dx) Start: 11-29-2023 Telephone encounter Ambrose beasley MD Work Phone: Neurology Comment on above: PT Recertification Start: 11-27-2023 Telephone encounter Ambrose beasley MD Work Phone: Neurology Comment on above: Patient Question Start: 11-27-2023 End: 11-27-2023 Subsequent hospital visit by physician Jovani [facility] [place] Work Phone: Radiology Comment on above: Spinal stenosis, lum bar region with neurogenic claudication [M48.062] Start: 11-21-2023 Telephone encounter Ambrose beasley MD Work Phone: Neurology Comment on above: Xray Order Start: 11-21-2023 End: 11-21-2023 Office outpatient visit 25 minutes Khoi Lopez 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 Work Phone: [facility] Comment on above: Bacterial sinusitis (Primary Dx) Start: 11-13-2023 Refill Mahesh Teresa Vega Work Phone: Internal Medicine [place] Comment on above: Refill Request Start: 11-12-2023 End: 11-12-2023 Patient encounter procedure Tamika Roca 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 Work Phone: [facility] Comment on above: Rhinosinusitis (Prim kj Dx) Start: 10-17-2023 Telephone encounter Ambrose beasley MD Work Phone: Neurology Start: 09-22-2023 Telephone encounter Ambrose beasley MD Work Phone: Neurology Comment on above: PT Plan of Care Start: 09-18-2023 End: 09-18-2023 Home visit Yulissa Pardo PT Work Phone: [facility] Comment on above: PT AGENCY DC W VISIT Start: 09-13-2023 Telephone encounter Lou Ben on CYTOLOGY TEACHER Work Phone: [facility] Comment on above: Home Care (OP PT ord ers ) Start: 09-12-2023 Telephone encounter Lou Contreras on CYTOLOGY TEACHER Work Phone: [facility] Comment on above: Home Care (OP PT ord ers ) Home Care Start: 09-12-2023 End: 09-12-2023 Home visit Lou Rodriguez CYTOLOGY TEACHER Work Phone: [facility] Comment on above: CYTOLOGY TEACHER ROUTINE Start: 08-27-2023 Telephone encounter Elvin abad MD Work Phone: [facility] Comment on above: Home Care ( to Kika goodman) Home Care (Confirmat ion call) Start: 08-23-2023 End: 08-27-2023 Evaluation and management of inpatient ELVIN DIAZ Facility:[facility] Start: 08-16-2023 ambulatory Elvin nichols MD Work Phone: Internal Medicine [facility] [place] Start: 07-20-2023 Preprocedural examin ation done Ambrose Birch MD Work Phone: [facility] Start: 07-20-2023 Telephone encounter Ambrose beasley MD Work Phone: Neurology Start: 07-03-2023 End: 07-03-2023 Patient encounter procedure Ambrose Birch MD Work Phone: Neurology Comment on above: Pre-op testing (Prim kj Dx); Radiculopathy, lumbar region Start: 07-03-2023 End: 07-03-2023 Patient encounter status Ambrose Birch MD Work Phone: [facility] Start: 05-30-2023 End: 05-30-2023 Subsequent hospital visit by physician Xr [facility] [place] Work Phone: Radiology Comment on above: Acute cough [R05.1] Start: 05-30-2023 End: 05-30-2023 Office outpatient visit 25 minutes Khoi Lopez APRN.CNP Work Phone: [facility] Comment on above: Acute cough (Primary Dx); Sinobronchitis Start: 05-26-2023 Telephone encounter Ambrose beasley MD Work Phone: Neurology Comment on above: Patient Update Start: 05-24-2023 End: 05-24-2023 ambulatory WAGNER CARDOSO Facility:[facility] Start: 05-01-2023 End: 05-01-2023 Patient encounter procedure Ambrose Birch MD Work Phone: Neurology Comment on above: Spinal stenosis, lum bar region with neurogenic claudication (Primary Dx) Start: 04-26-2023 End: 04-26-2023 Subsequent hospital visit by physician Mri Radio [facility] (I-Stat/1.5t) Work Phone: Radiology Comment on above: Spinal stenosis of l umbar region with neurogenic claudication [M48.062] Start: 03-23-2023 End: 03-23-2023 Patient encounter procedure Ambrose Birch MD Work Phone: Neurosurgery Comment on above: Spinal stenosis of l umbar region with neurogenic claudication (Primary Dx) Start: 03-16-2023 Telephone encounter Ambrose beasley MD Work Phone: Neurology Comment on above: Results - Ct Start: 03-07-2023 Refill Elvin nichols MD Work Phone: Internal Medicine [place] Comment on above: Med Change Request Start: 03-07-2023 Telephone encounter Elvin abad MD Work Phone: Internal Medicine [place] Comment on above: Medication Problem Start: 03-05-2023 Refill Elvin nichols MD Work Phone: Internal Medicine [place] Comment on above: Med Change Request Start: 02-28-2023 Telephone encounter Ambrose beasley MD Work Phone: Neurosurgery Comment on above: CT appeal Start: 02-24-2023 End: 02-24-2023 ambulatory [facility] Work Phone: Start: 02-24-2023 End: 02-24-2023 Discharged Recurring [facility] Work Phone: Start: 02-13-2023 End: 02-13-2023 Patient encounter procedure Ambrose Birch MD Work Phone: Neurology Comment on above: Spinal stenosis of l umbar region with neurogenic claudication (Primary Dx) Start: 02-09-2023 End: 02-09-2023 Patient encounter procedure Elvin Diaz MD Work Phone: Internal Medicine [place] Comment on above: Earache (Primary Dx) ; Folliculitis; Asthma with chronic obstructive pulmonary disease (COPD) ([facility]); Tobacco abuse; Pure hypercholesterolemia; PAD (peripheral artery disease) ([facility]) Start: 01-23-2023 End: 01-23-2023 ambulatory [facility] Work Phone: Start: 01-23-2023 End: 01-23-2023 Discharged Recurring [facility] Start: 11-04-2022 Telephone encounter Ambrose beasley MD Work Phone: Neurology Comment on above: Information Refill Request Letter Start: 10-14-2022 End: 10-14-2022 Patient encounter procedure Cristóbal Knowles MD Work Phone: Spine [place] Comment on above: Osteopenia, unspecif ied location (Primary Dx) Start: 09-19-2022 Refill Ambrose Birch MD Work Phone: Neurology Comment on above: Refill Request Start: 09-18-2022 End: 09-18-2022 Office outpatient visit 15 minutes Izaiah Medina APRN.CNP Work Phone: [facility] Comment on above: Acute non-recurrent pansinusitis (Primary Dx); OME (otitis media with effusion), bilateral Start: 09-12-2022 End: 09-12-2022 Patient encounter procedure Ambrose Birch MD Work Phone: Neurology Comment on above: Radiculopathy, lumba r region (Primary Dx) Start: 08-02-2022 End: 08-02-2022 Subsequent hospital visit by physician Maria Dolores [facility] (I-Stat) Work Phone: Cat Scan Comment on above: Spinal stenosis of l umbar region with neurogenic claudication [M48.062] Start: 07-21-2022 Telephone encounter Ambrose beasley MD Work Phone: Neurology Comment on above: Patient Update Start: 07-18-2022 Telephone encounter Ambrose beasley MD Work Phone: Neurosurgery Comment on above: Patient Update Start: 07-18-2022 End: 07-18-2022 Patient encounter procedure Ambrose Birch MD Work Phone: Neurology Comment on above: Spinal stenosis of l umbar region with neurogenic claudication (Primary Dx) Start: 07-12-2022 Documentation procedure Mammog keren Coordinator [facility] Start: 07-12-2022 Letter encounter Mammography Coordinator [facility] Department Start: 07-11-2022 End: 07-11-2022 Subsequent hospital visit by physician Screen Mammo [facility] M[facility]ogram Comment on above: Encounter for screen ing mammogram for breast cancer [Z12.31] Start: 07-07-2022 Telephone encounter Mark castillo MD Work Phone: Orthopaedics Comment on above: Schedule Surgery Start: 07-07-2022 End: 07-07-2022 Patient encounter procedure Mark Foster MD Work Phone: Orthopaedics Comment on above: Ganglion cyst of fin estefania Start: 07-06-2022 End: 07-06-2022 Patient encounter procedure Camille Leo APRN.CNP Work Phone: Pulmonary Medicine Comment on above: Encounter for screen ing for lung cancer (Primary Dx); Former smoker Start: 07-04-2022 Telephone encounter Ambrose beasley MD Work Phone: Neurology Comment on above: Home Health Medicati on Order Start: 07-04-2022 End: 07-04-2022 Patient encounter procedure Elvin Diaz MD Work Phone: Internal Medicine [place] Comment on above: Asthma with chronic obstructive pulmonary disease (COPD) (HCC) (Primary Dx); Hirsutism; Need for vaccination; Depression, unspecified depression type; Former smoker Start: 06-23-2022 Orders Only Alden GUTIERREZC Work Phone: Neurosurgery Start: 06-22-2022 Telephone encounter Ambrose beasley MD Work Phone: Neurology Comment on above: patient question Start: 06-17-2022 End: 06-17-2022 Subsequent hospital visit by physician Screen Mammo [facility] M[facility]ogram Comment on above: Encounter for screen ing mammogram for breast cancer [Z12.31] Start: 06-16-2022 End: 06-16-2022 Subsequent hospital visit by physician Xr [facility] [place] Work Phone: Radiology Comment on above: Arthritis of big toe [M19.079] Start: 06-16-2022 End: 06-16-2022 Patient encounter procedure Leobardo Bundy Work Phone: Podiatry Comment on above: Arthritis of big toe (Primary Dx); PAD (peripheral artery disease) (HCC) Start: 06-08-2022 End: 06-08-2022 Patient encounter procedure 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 Work Phone: Internal Medicine [place] Comment on above: Ganglion cyst of fin estefania (Primary Dx) Start: 06-02-2022 End: 06-02-2022 Patient encounter procedure Ambrose Birch MD Work Phone: Neurosurgery Comment on above: Radiculopathy, lumba r region (Primary Dx) Start: 05-31-2022 Orders Only Drew Hobson MD Work Phone: Vascular Surgery Comment on above: Iliac artery stenosi s, bilateral (HCC) (Primary Dx) Start: 05-30-2022 End: 05-30-2022 ambulatory Drew Hobson MD Work Phone: Vascular Surgery Comment on above: S/P hardware removal (Primary Dx); Peripheral arterial disease (HCC); Spinal stenosis, lumbar region with neurogenic claudication Start: 05-30-2022 End: 05-30-2022 Telemedicine consultation with patient Drew Hobson MD Work Phone: [facility] Start: 05-23-2022 Telephone encounter Ambrose beasley MD Work Phone: Neurosurgery Comment on above: Patient Update Start: 05-20-2022 Patient Outreach Christy Garcia RN [facility] Care Management Comment on above: Transition Of Care ( Initial Outreach D/C 05/19/22 Holiness completed ) Medication Problem refill Start: 05-11-2022 Orders Only Alden Neftali tt PA-C Work Phone: Neurosurgery Comment on above: Osteopenia of hip, u nspecified laterality (Primary Dx); Osteopenia of lumbar spine Orders Start: 05-09-2022 ambulatory Ambrose Birch MD Work Phone: Neurosurgery Start: 05-09-2022 Preprocedural examin ation done Ambrose Birch MD Work Phone: Neurosurgery Start: 05-09-2022 End: 05-09-2022 Patient encounter procedure Ambrose Birch MD Work Phone: Neurology Comment on above: Pre-op testing (Prim kj Dx); Radiculopathy, lumbar region Start: 05-09-2022 End: 05-09-2022 Patient encounter status Ambrose Birch MD Work Phone: Neurology Start: 05-05-2022 End: 05-05-2022 Subsequent hospital visit by physician Maria Dolores [facility] (I-Stat) Work Phone: Cat Scan Comment on above: Spinal stenosis of l umbar region with neurogenic claudication [M48.062] Start: 04-21-2022 End: 04-21-2022 Patient encounter procedure Ambrose Birch MD Work Phone: Neurosurgery Comment on above: Spinal stenosis of l umbar region with neurogenic claudication (Primary Dx) Start: 04-01-2022 Telephone encounter Ambrose beasley MD Work Phone: Neurology Comment on above: Post Op Start: 03-29-2022 Telephone encounter Ambrose beasley MD Work Phone: Neurology Comment on above: Results Start: 03-29-2022 End: 03-29-2022 Patient encounter procedure Elvin Diaz MD Work Phone: Internal Medicine [place] Comment on above: S/P lumbar spinal fu jim (Primary Dx); Lumbar stenosis with neurogenic claudication; Spinal stenosis, lumbar region with neurogenic claudication; Generalized weakness; Hirsutism Start: 03-28-2022 End: 03-28-2022 ambulatory Emg 850) Neurology Start: 03-28-2022 End: 03-28-2022 Patient encounter procedure Emg 1 Neur Veronika (Max Weight: 850) VERONIKA Start: 03-15-2022 Telephone encounter Elvin abad MD Work Phone: Internal Medicine [place] Comment on above: Home Health Start: 03-14-2022 Telephone encounter Ambrose beasley MD Work Phone: Neurology Comment on above: Patient Update Start: 03-10-2022 End: 03-10-2022 Patient encounter procedure Ambrose Birch MD Work Phone: Neurosurgery Comment on above: Radiculopathy, lumba r region (Primary Dx) Start: 03-03-2022 End: 03-14-2022 Evaluation and management of inpatient CLARE DORSEY Facility:[facility] Start: 02-24-2022 Orders Only Alden rodriguez PA-C Work Phone: Neurology Comment on above: Spinal stenosis, lum bar region with neurogenic claudication (Primary Dx) Start: 02-17-2022 Orders Only Libby White PA-C Work Phone: Neurosurgery Start: 02-17-2022 Refill Becky Brush'Yudith PA-C Work Phone: Neurology Comment on above: Refill Request Start: 02-14-2022 End: 02-14-2022 Patient encounter procedure Missy Thompson APRN.CNP Work Phone: Vascular Surgery Comment on above: PAD (peripheral caitlin ry disease) ([facility]) (Primary Dx); Spinal stenosis, lumbar region, without neurogenic claudication Start: 02-11-2022 End: 02-11-2022 Admission to establishment [facility] [place] [facility] Work Phone: [facility] [place] Start: 02-11-2022 End: 02-11-2022 ambulatory [facility] [place] [facility] Work Phone: Pre Anesthesia Comment on above: Pre-operative examin ation (Primary Dx); Gastroesophageal reflux disease without esophagitis; Allergy-induced asthma, mild intermittent, uncomplicated; Former smoker; Hirsutism; Thrombosis, iliac, artery (HCC); Spinal stenosis, lumbar region, without neurogenic claudication; Pure hypercholesterolemia Start: 02-11-2022 End: 02-11-2022 Preprocedural examination done [facility] [place] 1 Work Phone: Pre Anesthesia Start: 02-09-2022 Telephone encounter Ambrose beasley MD Work Phone: Neurology Comment on above: patient lettter requ est Start: 01-31-2022 Refill Ambrose Birch MD Work Phone: Neurology Start: 01-27-2022 ambulatory Ambrose Birch MD Work Phone: Neurosurgery Start: 01-27-2022 E-mail encounter fro m caregiver Ambrose Birch MD Work Phone: [facility] [place] Start: 01-27-2022 Patient encounter procedure Je alaina Birch MD Work Phone: Pre Anesthesia Comment on above: PACC APPOINTMENT Start: 01-27-2022 Patient encounter status [place] Birch MD Work Phone: Neurosurgery Start: 01-26-2022 Telephone encounter Drew Hobson MD Work Phone: Vascular Surgery Comment on above: Appointment Start: 01-21-2022 Telephone encounter Elvin abad MD Work Phone: Internal Medicine [place] Comment on above: Patient Update; FYI- No Action Needed Start: 01-20-2022 End: 01-20-2022 Patient encounter procedure Elvin Diaz MD Work Phone: Internal Medicine [place] Comment on above: Post-operative state (Primary Dx); Spinal stenosis, lumbar region with neurogenic claudication; S/P lumbar spinal fusion; History of recent vascular procedure; Pure hypercholesterolemia Start: 01-20-2022 End: 01-20-2022 Subsequent hospital visit by physician Jovani [facility] Radiology Comment on above: Spinal stenosis of l umbar region with neurogenic claudication [M48.062] Start: 01-20-2022 End: 01-20-2022 Patient encounter procedure Ambrose Birch MD Work Phone: Neurosurgery Comment on above: Spinal stenosis of l umbar region with neurogenic claudication (Primary Dx) Start: 01-18-2022 Telephone encounter Ambrose beasley MD Work Phone: Neurology Comment on above: Hospital Bed Order Start: 01-17-2022 Telephone encounter Elvin abad MD Work Phone: Internal Medicine [place] Comment on above: Physical Therapy Jenny n of Care; Hospital bed order request Start: 01-12-2022 Orders Only Drew Hobson MD Work Phone: Vascular Surgery Comment on above: Iliac artery stenosi s, bilateral (HCC) (Primary Dx) Start: 01-06-2022 Telephone encounter Kashmir Lamar Research Coordinator [facility] Provider Adult Comment on above: Research Start: 12-21-2021 Patient encounter status [place] Birch MD Work Phone: Neurosurgery Start: 12-21-2021 Telephone encounter Ambrose beasley MD Work Phone: Neurosurgery Comment on above: Orders Start: 12-15-2021 Telephone encounter Ambrose beasley MD Work Phone: Neurology Comment on above: patient questions Start: 11-16-2021 Telephone encounter Ambrose beasley MD Work Phone: Neurology Comment on above: FMLA Paperwork Start: 11-15-2021 End: 11-15-2021 Patient encounter procedure Drew Hobson MD Work Phone: Vascular Surgery Comment on above: Spinal stenosis, lum bar region, without neurogenic claudication (Primary Dx) Start: 11-08-2021 ambulatory Ambrose Birch MD Work Phone: Neurosurgery Start: 04-04-2022 Preprocedural examin ation done Ambrose Birch MD Work Phone: Neurosurgery Start: 11-05-2021 ambulatory Ambrose Birch MD Work Phone: Neurosurgery Comment on above: Education Of Patient /family Start: 11-05-2021 Telephone encounter Drew Hobson MD Work Phone: Vascular Surgery Comment on above: Appointment Start: 11-01-2021 Telephone encounter Ambrose beasley MD Work Phone: Neurology Comment on above: Schedule Surgery Start: 10-29-2021 Refill Garth wolff PA-C Work Phone: Neurosurgery Comment on above: Refill Request Start: 05-14-2021 End: 05-14-2021 Subsequent hospital visit by physician Xr [facility] [place] Work Phone: Radiology Comment on above: Spinal stenosis, lum bar region with neurogenic claudication [M48.062] Procedures Date Procedure Procedure Detail Performing Clinician Start: 02-25-2025 Injection 1 tendon sheath/ligament aponeurosis Tim Tripp DO Work Phone: Start: 02-21-2025 Radex hand minimum 3 views Africa Caba PA Work Phone: Start: 10-25-2024 Ct lumbar spine w/o contrast material Mahesh Wilder PA-C Work Phone: Start: 09-30-2024 Radiologic exam ches t 2 views Wendy Stone 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 Work Phone: Start: 04-04-2024 Adult depression screening assessment Nusrat Alva 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 Work Phone: Start: 11-27-2023 Radex spine lumbosac ral 2/3 views Becky Sun PA-C Work Phone: Start: 05-30-2023 Radiologic exam ches t 2 views Khoi Lopez APRN.WOODEN BOAT BUILDER Work Phone: Start: 04-26-2023 Mri spinal canal lum bar w/o contrast material Ambrose Birch MD Work Phone: Start: 08-02-2022 Ct lumbar spine w/o contrast material Ambrose Birch MD Work Phone: Start: 07-11-2022 End: 07-11-2022 Mammography Geneva Palmer 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.C HYPERION ESSBASE DEVELOPER Work Phone: Start: 06-16-2022 Radex foot complete minimum 3 views Leobardo Bundy Work Phone: Start: 05-17-2022 End: 08-25-2023 H/O: surgery S/P hardware removal Libby White PA-C Work Phone: Start: 05-05-2022 Ct lumbar spine w/o contrast material Ambrose Birch MD Work Phone: Start: 03-28-2022 Nerve conduction sherrie dies 5-6 studies Ambrose Birch MD Work Phone: Start: 02-12-2022 Antibody screen P[facility] 1 Work Phone: Start: 01-20-2022 Radex spine lumbosac ral 2/3 views Ambrose Birch MD Work Phone: Start: 12-20-2021 Adult depression screening assessment Ambrose Birch MD Work Phone: Start: 08-20-2021 Colonoscopy Garth Link PA-C Work Phone: Start: 07-05-2021 Mammography Garth Link PA-C Work Phone: Start: 06-25-2021 Lipid 1996 panel - S yary or Plasma Ambrose Birch MD Work Phone: Start: 06-10-2021 Adult depression screening assessment Garth Keane PA-C Work Phone: Start: 05-14-2021 Radex spine lumbosac ral 2/3 views Cristóbal Knowles MD Work Phone: H/O: surgery S/P hardware removal Drew Hobson MD Work Phone: Plan of Treatment Date Care Activity Detail Author Start: 08-14-2033 Urine microalbumin profile DTaP,Tdap,Td Vaccine (3 - Td or Tdap) [facility] Start: 08-20-2031 Colonoscopy COLONOSCOPY [facility] Start: 08-20-2031 COLORECTAL CANCER SCREENING COLORECTAL CANCER SCREENING [facility] Start: 08-20-2031 Screening for malignant neoplasm of colon [facility] Start: 08-27-2026 Diabetes Screening Diabetes Screening [facility] Start: 07-26-2026 Diabetes Screening Diabetes Screening [facility] Start: 07-05-2026 HPV TESTING HPV TESTING [facility] Start: 07-05-2026 PAP TESTING PAP TESTING [facility] Start: 07-05-2026 Screening for malignant neoplasm of cervix [facility] Start: 06-25-2026 Lipid 1996 panel - Serum or Plasma Lipid Screening [facility] Start: 06-25-2026 Lipid panel Lipid Screening [facility] Start: 06-25-2026 LIPID SCREEN LIPID SCREEN [facility] Start: 08-25-2025 End: 08-25-2025 Patient encounter procedure 08/25/2025 9:30 AM EST Office Visit Neurology [address] [place] [address] Ambrose Birch MD [address] [place] [address] 6 MONTH F/U Neurology Comment on above: 6 MONTH F/U Start: 05-19-2025 DIABETES SCREEN DIABETES SCREEN [facility] Start: 05-19-2025 Diabetes Screening Diabetes Screening [facility] Start: 04-08-2025 End: 04-08-2025 Patient encounter procedure 04/08/2025 10:00 AM EDT Office Visit Internal Medicine [place] [address] [place], [place] [id number] Elvin Diaz MD [address] [place], [place] [id number] Wellness Internal Medicine [place] Comment on above: Wellness Start: 04-07-2025 Influenza vaccination [facility] Start: 04-04-2025 Annual PCP Team Chronic Disease Visit Annual PCP Team Chronic Disease Visit [facility] Start: 04-04-2025 Anxiety Screening Anxiety Screening [facility] Start: 04-04-2025 Depression Screening Depression Screening [facility] Start: 03-28-2025 End: 06-27-2025 CBC panel - Blood by Automated count COMPLETE BLOOD COUNT Lab Routine History of DVT (deep vein thrombosis) Expected: 03/28/2025, Expires: 06/27/2025 [facility] Work Phone: Comment on above: Expected: 03/28/2025, Expires: Start: 03-28-2025 End: 06-27-2025 Comprehensive metabolic 2000 panel - Serum or Plasma COMPREHENSIVE METABOLIC PANEL Lab Routine Pure hypercholesterolemia Expected: 03/28/2025, Expires: 06/27/2025 [facility] Comment on above: Expected: 03/28/2025, Expires: Start: 03-28-2025 End: 06-27-2025 Lipid 1996 panel - Serum or Plasma LIPID PANEL, FASTING Lab Routine Pure hypercholesterolemia Expected: 03/28/2025, Expires: 06/27/2025 [facility] Comment on above: Expected: 03/28/2025, Expires: Start: 03-03-2025 DIABETES SCREEN DIABETES SCREEN [facility] Start: 02-25-2025 End: 02-25-2025 Patient encounter procedure 02/25/2025 10:30 AM EDT Office Visit [facility] Osorio Ricci [address] [place] [address] Tim Tripp V, DO [address] [place] [address] De Quervain's tenosynovitis, left [M65.4] [facility] Comment on above: De Quervain's tenosynovitis, left [M65.4 ] Start: 02-24-2025 DIABETES SCREEN DIABETES SCREEN [facility] Start: 02-24-2025 End: 02-24-2025 Patient encounter procedure Neurology Comment on above: follow up after injection Start: 02-11-2025 DIABETES SCREEN DIABETES SCREEN [facility] Start: 01-10-2025 DIABETES SCREEN DIABETES SCREEN [facility] Start: 12-24-2024 End: 12-24-2024 Admission to same day surgery center 12/24/2024 2:24 PM EDT - 12/24/2024 2:51 PM EDT Surgery [facility] [address] [place] [address] Fuad Rutledge MD [address] [facility] [place] [address] BLOCK SACROILIAC WITH C-ARM [facility] Comment on above: BLOCK SACROILIAC WITH C-ARM Start: 12-24-2024 End: 12-24-2024 Inject si joint arthrgrphy&/anes/steroi d w/renae BLOCK SACROILIAC WITH C-ARM Spinal stenosis of lumbar region with neurogenic claudication 12/24/2024 2:24 PM EDT ME OR Start: 12-24-2024 Subsequent hospital visit by physician 12/24/2024 2:24 PM EDT Hospital Encounter [facility] [address] [place] [address] Fuad Rutledge MD [address] [facility] [place] [address] Spinal stenosis of lumbar region with neurogenic claudication [M48.062] [facility] Comment on above: Spinal stenosis of lumbar region with ne urogenic claudication [M48.062] Start: 12-13-2024 DIABETES SCREEN DIABETES SCREEN [facility] Start: 12-13-2024 Screening for malignant neoplasm of breast Mammogram Screening [facility] Start: 10-31-2024 End: 10-31-2024 Patient encounter procedure 10/31/2024 10:40 AM EDT Appointment Cat Scan [address] [place] [address] CT LUMBAR SPINE WO IVCON Cat Scan Comment on above: CT LUMBAR SPINE WO IVCON Start: 10-04-2024 End: 10-04-2024 Patient encounter procedure 10/04/2024 11:20 AM EST Appointment Cat Scan [address] [place] [address] Spinal stenosis of lumbar region with neurogenic claudication [M48.062] Cat Scan Comment on above: Spinal stenosis of lumbar region with ne urogenic claudication [M48.062] Start: 09-20-2024 End: 09-20-2024 Patient encounter procedure 09/20/2024 11:40 AM EST Appointment Cat Scan [address] [place] [address] Spinal stenosis of lumbar region with neurogenic claudication [M48.062] Cat Scan Comment on above: Spinal stenosis of lumbar region with ne urogenic claudication [M48.062] Start: 09-13-2024 End: 09-13-2024 Patient encounter procedure 09/13/2024 10:00 AM EST Appointment Cat Scan [address] [place] [address] LUMBAR Cat Scan Comment on above: LUMBAR Start: 09-02-2024 End: 09-02-2024 Patient encounter procedure 09/02/2024 9:45 AM EST Office Visit Neurology [address] [place] [address] [place] [address] [address] [place] [address] 3 MONTH RETURN Neurology Comment on above: 3 MONTH RETURN Start: 08-14-2024 Annual PCP Team Chronic Disease Visit Annual PCP Team Chronic Disease Visit [facility] Start: 06-10-2024 End: 06-10-2024 Patient encounter procedure 06/10/2024 9:00 AM EST Office Visit Pulmonary Medicine [address] [place] [address] Leila Jordan APRN.[employer] [address] [place] [address] Encounter for screening for lung cancer [Z12.2] Pulmonary Medicine Comment on above: Encounter for screening for lung cancer [Z12.2] Start: 06-03-2024 End: 06-03-2024 Patient encounter procedure 06/03/2024 10:30 AM EDT Office Visit Neurology [address] [place] [address] [place] [address] [address] [place] [address] 6 MONTH RETURN Neurology Comment on above: 6 MONTH RETURN Start: 05-24-2024 End: 05-24-2024 Patient encounter procedure 05/24/2024 8:50 AM EDT Office Visit [facility] [address] [place] [id number] Yary Ruvalcaba, 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.[facility] [address] [place] [address] Gastroesophageal reflux disease without esophagitis [K21.9] [facility] Comment on above: Gastroesophageal reflux disease without esophagitis [K21.9] Start: 05-21-2024 End: 05-21-2024 Patient encounter procedure 05/21/2024 1:40 PM EDT Office Visit Endocrinology [address] [place] [address] Lexy Francis MD [address] [place], [place] [id number] Hirsutism [L68.0] Endocrinology Comment on above: Hirsutism [L68.0] Start: 04-28-2024 DIABETES SCREEN DIABETES SCREEN [facility] Start: 04-07-2024 Covid-19 Vaccine ( season) Covid-19 Vaccine () [facility] Start: 04-07-2024 Influenza vaccination [facility] Start: 04-04-2024 End: 07-04-2024 25-hydroxyvitamin D3 [Mass/volume] in Serum or Plasma VITAMIN D 25 HYDROXY Lab Routine Vitamin D deficiency Expected: 04/04/2024, Expires: 07/04/2024 [facility] Comment on above: Expected: 04/04/2024, Expires: Start: 04-04-2024 End: 07-04-2024 CBC W Auto Differential panel - Blood COMPLETE BLOOD COUNT AND DIFFERENTIAL Lab Routine Anemia, unspecified type Expected: 04/04/2024, Expires: 07/04/2024 [facility] Comment on above: Expected: 04/04/2024, Expires: Start: 04-04-2024 End: 07-04-2024 Cobalamin (Vitamin B12) [Mass/volume] in Serum or Plasma VITAMIN B12 Lab Routine Anemia, unspecified type Expected: 04/04/2024, Expires: 07/04/2024 [facility] Work Phone: Comment on above: Expected: 04/04/2024, Expires: Start: 04-04-2024 End: 07-04-2024 Comprehensive metabolic 2000 panel - Serum or Plasma COMPREHENSIVE METABOLIC PANEL Lab Routine Pure hypercholesterolemia Expected: 04/04/2024, Expires: 07/04/2024 [facility] Comment on above: Expected: 04/04/2024, Expires: Start: 04-04-2024 End: 07-04-2024 Ferritin [Mass/volume] in Serum or Plasma FERRITIN Lab Routine Anemia, unspecified type Expected: 04/04/2024, Expires: 07/04/2024 [facility] Comment on above: Expected: 04/04/2024, Expires: Start: 04-04-2024 End: 07-04-2024 Folate [Mass/volume] in Serum or Plasma FOLATE, SERUM Lab Routine Anemia, unspecified type Expected: 04/04/2024, Expires: 07/04/2024 [facility] Comment on above: Expected: 04/04/2024, Expires: Start: 04-04-2024 End: 07-04-2024 Iron and Iron binding capacity panel - Serum or Plasma IRON AND TIBC Lab Routine Anemia, unspecified type Expected: 04/04/2024, Expires: 07/04/2024 [facility] Comment on above: Expected: 04/04/2024, Expires: Start: 04-04-2024 End: 07-04-2024 Lipid 1996 panel - Serum or Plasma LIPID PANEL BASIC Lab Routine Pure hypercholesterolemia Expected: 04/04/2024, Expires: 07/04/2024 [facility] Comment on above: Expected: 04/04/2024, Expires: Start: 04-04-2024 End: 04-04-2024 Patient encounter procedure 04/04/2024 1:00 PM EDT Office Visit [facility] [place] [address] [place] [address] Nusrat Alva, 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 [address] [place] [address] annual physical [facility] [place] Comment on above: annual physical Start: 04-01-2024 End: 04-15-2024 COVID & INFLUENZA A/B & RSV NAAT, ROUTINE COVID & INFLUENZA A/B & RSV NAAT, ROUTINE Microbiology Routine Upper respiratory tract infection, unspecified type Expected: 04/01/2024, Expires: 04/15/2024 [facility] Work Phone: Comment on above: Expected: 04/01/2024, Expires: Start: 02-10-2024 ANNUAL PCP TEAM CHRONIC DISEASE VISIT ANNUAL PCP TEAM CHRONIC DISEASE VISIT [facility] Start: 12-12-2023 End: 12-12-2023 Patient encounter procedure 12/12/2023 1:10 PM EDT Appointment Mammogram [address] [place] [address] Mammogram Start: 12-04-2023 End: 12-04-2023 Patient encounter procedure 12/04/2023 10:30 AM EDT Office Visit Neurology [address] [place] [address] [place] [address] [address] [place] [address] follow up-rescheduled from 12/10 Neurology Comment on above: follow up-rescheduled from 12/10 Start: 08-07-2023 Behavioral Health Screening Behavioral Health Screening [facility] Start: 07-20-2023 End: 10-19-2023 NICOTINE/COTININE NICOTINE/COTININE Lab Routine Preoperative examination Expected: 07/20/2023, Expires: 10/19/2023 [facility] Work Phone: Comment on above: Expected: 07/20/2023, Expires: 4 Start: 07-11-2023 Mammography [facility] Start: 07-11-2023 Screening for malignant neoplasm of breast Mammogram Screening [facility] Start: 07-04-2023 ANNUAL PCP TEAM CHRONIC DISEASE VISIT ANNUAL PCP TEAM CHRONIC DISEASE VISIT [facility] Start: 07-03-2023 End: 12-30-2023 STAPH AUREUS PCR STAPH A[facility] PCR Lab Routine Pre-op testing Expected: 07/03/2023, Expires: 12/30/2023 [facility] Work Phone: Comment on above: Expected: 07/03/2023, Expires: 4 Start: 06-08-2023 ANNUAL PCP TEAM CHRONIC DISEASE VISIT ANNUAL PCP TEAM CHRONIC DISEASE VISIT [facility] Start: 04-07-2023 Covid-19 Vaccine ( season) Covid-19 Vaccine () [facility] Start: 04-07-2023 Influenza vaccination [facility] Start: 03-29-2023 ANNUAL PCP TEAM CHRONIC DISEASE VISIT ANNUAL PCP TEAM CHRONIC DISEASE VISIT [facility] Start: 02-10-2023 End: 04-12-2023 Basic metabolic 2000 panel - Serum or Plasma BASIC METABOLIC PNL Lab Routine Pure hypercholesterolemia Expected: 02/10/2023, Expires: 04/12/2023 [facility] Work Phone: Comment on above: Expected: 02/10/2023, Expires: 3 Start: 02-10-2023 End: 04-12-2023 CBC panel - Blood by Automated count CBC Lab Routine PAD (peripheral artery disease) (HCC) Expected: 02/10/2023, Expires: 04/12/2023 [facility] Work Phone: Comment on above: Expected: 02/10/2023, Expires: 3 Start: 02-10-2023 End: 04-12-2023 Hemoglobin A1c in Blood HGB A1C Lab Routine Pure hypercholesterolemia Expected: 02/10/2023, Expires: 04/12/2023 [facility] Work Phone: Comment on above: Expected: 02/10/2023, Expires: 3 Start: 02-10-2023 End: 04-12-2023 Lipid 1996 panel - Serum or Plasma LIPID PANEL BASIC Lab Routine Pure hypercholesterolemia Expected: 02/10/2023, Expires: 04/12/2023 [facility] Work Phone: Comment on above: Expected: 02/10/2023, Expires: 3 Start: 01-20-2023 ANNUAL PCP TEAM CHRONIC DISEASE VISIT ANNUAL PCP TEAM CHRONIC DISEASE VISIT [facility] Start: 12-20-2022 Adult depression screening assessment DEPRESSION SCREENING [facility] Start: 10-14-2022 End: 12-14-2022 25-hydroxyvitamin D3 [Mass/volume] in Serum or Plasma VITAMIN D 25 HYDROXY Lab Routine Osteopenia, unspecified location Expected: 10/14/2022, Expires: 12/14/2022 [facility] Work Phone: Comment on above: Expected: 10/14/2022, Expires: 3 Start: 10-14-2022 End: 12-14-2022 CBC panel - Blood by Automated count CBC Lab Routine Osteopenia, unspecified location Expected: 10/14/2022, Expires: 12/14/2022 [facility] Work Phone: Comment on above: Expected: 10/14/2022, Expires: 3 Start: 10-14-2022 End: 12-14-2022 Comprehensive metabolic 2000 panel - Serum or Plasma COMP METABOLIC PANEL Lab Routine Osteopenia, unspecified location Expected: 10/14/2022, Expires: 12/14/2022 [facility] Work Phone: Comment on above: Expected: 10/14/2022, Expires: 3 Start: 10-14-2022 End: 12-14-2022 Parathyrin.intact [Mass/volume] in Serum or Plasma PTH INTACT BLD Lab Routine Osteopenia, unspecified location Expected: 10/14/2022, Expires: 12/14/2022 [facility] Work Phone: Comment on above: Expected: 10/14/2022, Expires: 3 Start: 08-07-2022 DEPRESSION ASSESSMENT DEPRESSION ASSESSMENT [facility] Start: 07-05-2022 Mammography MAMMOGRAM [facility] Start: 07-05-2022 Screening for malignant neoplasm of cervix Cervical Cancer Screening [facility] Start: 06-23-2022 ANNUAL PCP TEAM CHRONIC DISEASE VISIT ANNUAL PCP TEAM CHRONIC DISEASE VISIT [facility] Start: 06-10-2022 Adult depression screening assessment DEPRESSION SCREENING [facility] Start: 05-09-2022 End: 05-09-2023 SARS-CoV-2 (COVID-19) RNA [Presence] in Respiratory specimen by LV with probe detection PRE-PROCEDURE & PRE-OPERATIVE COVID Microbiology Routine Preoperative examination Expected: 05/09/2022, Expires: 05/09/2023 [facility] Work Phone: Comment on above: Expected: 05/09/2022, Expires: 3 Start: 04-07-2022 Influenza vaccination [facility] Start: 01-27-2022 End: 01-27-2023 SARS-CoV-2 (COVID-19) RNA [Presence] in Respiratory specimen by LV with probe detection PRE-PROCEDURE & PRE-OPERATIVE COVID Microbiology Routine Pre-op testing Expected: 01/27/2022, Expires: 01/27/2023 [facility] Work Phone: Comment on above: Expected: 01/27/2022, Expires: 3 Start: 01-04-2022 End: 03-06-2022 NICOTINE/COTININE NICOTINE/COTININE Lab Routine Preop testing Expected: 01/04/2022, Expires: 03/06/2022 [facility] Work Phone: Comment on above: Expected: 01/04/2022, Expires: 2 Start: 11-08-2021 End: 11-08-2022 SARS-CoV-2 (COVID-19) RNA [Presence] in Respiratory specimen by LV with probe detection PRE-PROCEDURE & PRE-OPERATIVE COVID Microbiology Routine Pre-op examination Expected: 11/08/2021, Expires: 11/08/2022 [facility] Work Phone: Comment on above: Expected: 11/08/2021, Expires: 3 Start: 10-17-2021 COVID-19 VACCINE (4 - Booster for Moderna series) COVID-19 VACCINE (4 - Booster for Moderna series) [facility] Start: 08-14-2021 COVID-19 VACCINE (4 - Booster for Moderna series) COVID-19 VACCINE (4 - Booster for Moderna series) [facility] Start: 08-07-2021 DEPRESSION ASSESSMENT DEPRESSION ASSESSMENT [facility] Start: 04-07-2021 Influenza vaccination INFLUENZA (#1) [facility] Start: 01-29-2021 Urine microalbumin profile [facility] Start: 2018 Influenza vaccination LUNG CANCER SCREENING [facility] Start: 2018 Screening for malignant neoplasm of lung Lung Cancer Screening [facility] Start: 09-14-2016 Screening for malignant neoplasm of colon Sigmoidoscopy [facility] Start: 09-14-2016 SIGMOIDOSCOPY SIGMOIDOSCOPY [facility] Start: 2013 COLOGUARD (FIT-DNA) COLOGUARD (FIT-DNA) [facility] Start: [address] COLONOGRAPHY [facility] Start: 2013 FECAL OCCULT BLOOD FECAL OCCULT BLOOD [facility] Start: 2013 Screening for malignant neoplasm of colon [facility] Start: 1998 Zoledronic acid therapy ALPHA-1 ANTITRYPSIN DEFICIENCY SCREENING [facility] Start: 1987 ONE PNEUMOVAX PRIOR TO AGE 63 ONE PNEUMOVAX PRIOR TO AGE 63 [facility] Start: 1986 Anxiety Screening Anxiety Screening [facility] Start: 1986 Depression Screening Depression Screening [facility] Start: 1986 SPIROMETRY SPIROMETRY [facility] Start: 1974 PNEUMOCOCCAL (1 - PCV) PNEUMOCOCCAL (1 - PCV) [facility] Start: 1968 HEPATITIS B (1 of 3 - 3-dose series) HEPATITIS B (1 of 3 - 3-dose series) [facility] End: 05-21-2023 Ct lumbar spine w/o contrast material CT LUMBAR SPINE WO IVCON Radiology Routine Spinal stenosis of lumbar region with neurogenic claudication 1 Occurrences starting 04/21/2022 until 05/21/2023 [facility] Work Phone: Comment on above: 1 Occurrences starting 04/21/2022 until 05/21/2023 End: 08-17-2023 Ct lumbar spine w/o contrast material CT LUMBAR SPINE WO IVCON Radiology Routine Spinal stenosis of lumbar region with neurogenic claudication 1 Occurrences starting 07/18/2022 until 08/17/2023 [facility] Work Phone: Comment on above: 1 Occurrences starting 07/18/2022 until 08/17/2023 End: 03-14-2024 Ct lumbar spine w/o contrast material CT LUMBAR SPINE WO IVCON Radiology Routine Spinal stenosis of lumbar region with neurogenic claudication 1 Occurrences starting 02/13/2023 until 03/14/2024 [facility] Work Phone: Comment on above: 1 Occurrences starting 02/13/2023 until 03/14/2024 End: 10-02-2025 CT Lumbar spine WO contrast CT LUMBAR SPINE WO IVCON Radiology Routine Spinal stenosis of lumbar region with neurogenic claudication 1 Occurrences starting 09/02/2024 until 10/02/2025 [facility] Work Phone: Comment on above: 1 Occurrences starting 09/02/2024 until 10/02/2025 End: 10-18-2025 CT Lumbar spine WO contrast CT LUMBAR SPINE WO IVCON Radiology Routine Spinal stenosis of lumbar region with neurogenic claudication 1 Occurrences starting 09/18/2024 until 10/18/2025 [facility] Work Phone: Comment on above: 1 Occurrences starting 09/18/2024 until 10/18/2025 End: 08-05-2023 CT LUNG SCREEN WO IVCON CT LUNG SCREEN WO IVCON Radiology Routine Former smoker Encounter for screening for lung cancer 1 Occurrences starting 07/06/2022 until 08/05/2023 [facility] Work Phone: Comment on above: 1 Occurrences starting 07/06/2022 until 08/05/2023 Electrical stimulati on bone healing noninvasive ELECT BONE STIM NONINVASIVE Procedures Routine Spinal stenosis, lumbar region with neurogenic claudication Ordered: 02/24/2022 [facility] Work Phone: Comment on above: Ordered: 02/24/2022 End: 03-10-2023 EMG(NEURO/NI) EMG(NEURO/NI) EMG Routine Radiculopathy, lumbar region 1 Occurrences starting 03/10/2022 until 03/10/2023 [facility] Work Phone: Comment on above: 1 Occurrences starting 03/10/2022 until 03/10/2023 DONNELL SCREENING DONNELL SCREENING Ra diology Routine Encounter for screening mammogram for breast cancer 06/17/2022 10:59 AM EST [facility] Work Phone: End: 09-14-2024 DONNELL SCREENING DONNELL SCREENING Radiology Routine Encounter for screening mammogram for breast cancer 1 Occurrences starting 08/16/2023 until 09/14/2024 [facility] Work Phone: Comment on above: 1 Occurrences starting 08/16/2023 until 09/14/2024 MG Breast Screening DONNELL SCREENIN G Radiology Routine Encounter for screening mammogram for breast cancer 12/14/2023 10:05 AM EDT [facility] Work Phone: End: 04-21-2024 Mri spinal canal lumbar w/o contrast material MRI LUMBAR SPINE WO IVCON Radiology Routine Spinal stenosis of lumbar region with neurogenic claudication 1 Occurrences starting 03/23/2023 until 04/21/2024 [facility] Work Phone: Comment on above: 1 Occurrences starting 03/23/2023 until 04/21/2024 End: 01-12-2023 PVR ANK PRESS CISCO VAS LAB PVR ANK PRESS [facility] Vascular Lab Routine Iliac artery stenosis, bilateral (HCC) 1 Occurrences starting 01/12/2022 until 01/12/2023 [facility] Work Phone: Comment on above: 1 Occurrences starting 01/12/2022 until 01/12/2023 End: 05-31-2023 PVR LEG CISCO [facility]AS LAB PVR LEG [facility] Vascular Lab Routine Iliac artery stenosis, bilateral (HCC) 1 Occurrences starting 05/31/2022 until 05/31/2023 [facility] Work Phone: Comment on above: 1 Occurrences starting 05/31/2022 until 05/31/2023 Radex spine lumbosac ral 2/3 views XR LUMBAR LIMITED 2V AP/LAT Radiology Routine Spinal stenosis of lumbar region with neurogenic claudication 01/20/2022 3:10 PM EDT [facility] Work Phone: SPINE INTERVENTION PROCEDURE SPINE INTERVENTION PROCEDURE Procedures Routine Spinal stenosis, lumbar region with neurogenic claudication Ordered: 05/01/2023 [facility] Work Phone: Comment on above: Ordered: 05/01/2023 SPINE INTERVENTION PROCEDURE SPINE INTERVENTION PROCEDURE Procedures Routine Spinal stenosis of lumbar region with neurogenic claudication Ordered: 12/02/2024 [facility] Work Phone: Comment on above: Ordered: 12/02/2024 SPINE INTERVENTION PROCEDURE SPINE INTERVENTION PROCEDURE Procedures Routine Chronic bilateral low back pain with right-sided sciatica Ordered: 02/24/2025 [facility] Work Phone: Comment on above: Ordered: 02/24/2025 STAPH AUREUS PCR STAPH A[facility] PC R Lab Routine Pre-op testing Ordered: 05/09/2022 [facility] Work Phone: Comment on above: Ordered: 05/09/2022 End: 01-12-2023 US ABD AORTA COMPLETE VAS LAB US ABD AORTA COMPLETE VAS LAB Vascular Lab Routine Iliac artery stenosis, bilateral (HCC) 1 Occurrences starting 01/12/2022 until 01/12/2023 [facility] Work Phone: Comment on above: 1 Occurrences starting 01/12/2022 until 01/12/2023 End: 05-31-2023 US ABD AORTA COMPLETE VAS LAB US ABD AORTA COMPLETE VAS LAB Vascular Lab Routine Iliac artery stenosis, bilateral (HCC) 1 Occurrences starting 05/31/2022 until 05/31/2023 [facility] Work Phone: Comment on above: 1 Occurrences starting 05/31/2022 until 05/31/2023 [facility] c [facility] c [facility] c [facility] c [facility] c [facility] c [facility]DO OR [facility] Immunizations Immunization Date Immunization Notes Care Provider [facility] 04-15-2024 influenza virus vaccine, unspecified formulation Elvin Diaz MD Work Phone: [facility] 08-14-2023 tetanus toxoid, reduced diphtheria toxoid, and acellular pertussis vaccine, adsorbed Elvin Diaz MD Work Phone: [facility] 07-06-2023 influenza, injectabl e, quadrivalent, preservative free Elvin Diaz MD Work Phone: [facility] Work Phone: 07-06-2023 influenza virus vaccine, unspecified formulation Ambrose Birch MD Work Phone: [facility] 07-04-2022 pneumococcal (PCV20) vaccine, 20 valent (PREVNAR 20) Elvin Diaz MD Work Phone: [facility] Work Phone: 07-04-2022 pneumococcal Conjugate, unspecified formulation Elvin Diaz MD Work Phone: [facility] Work Phone: 05-17-2022 influenza, injectabl e, quadrivalent, preservative free Libby White PA-C Work Phone: [facility] 05-17-2022 influenza virus vaccine, unspecified formulation Ambrose Birch MD Work Phone: [facility] 06-23-2021 zoster vaccine recombinant Garth Keane PA-C Work Phone: [facility] Work Phone: 06-19-2021 COVID-19 vaccine, fu ll dose (MODERNA) Garth Keane PA-C Work Phone: [facility] Work Phone: 09-16-2020 COVID-19 vaccine, fu ll dose (MODERNA) Garth Keane PA-C Work Phone: [facility] Work Phone: 08-19-2020 COVID-19 vaccine, fu ll dose (MODERNA) Garth Keane PA-C Work Phone: [facility] Work Phone: 07-01-2020 influenza, seasonal, injectable Garth Keane PA-C Work Phone: [facility] 09-16-2019 zoster vaccine recombinant Garth Keane PA-C Work Phone: [facility] 01-29-2011 tetanus toxoid, reduced diphtheria toxoid, and acellular pertussis vaccine, adsorbed Garth Keane PA-C Work Phone: [facility] Work Phone: 09-02-2005 tetanus and diphther ia toxoids, adsorbed, preservative free, for adult use (2 Lf of tetanus toxoid and 2 Lf of diphtheria toxoid) Garth Keane PA-C Work Phone: [facility] Payers Date Payer Category Payer Self-pay [id number] 2022 Medicaid [id number] 2022 Medicaid [id number] 2018 Unknown MMO MMO [employer] [id number] 2018-Present [phone] [address] [place] [address] PPO [id number] 2018 Unknown [id number] 2018 Unknown [id number] Unknown BRENDA [id number] Unknown [id number] Unknown [id number] Social History Date Type Detail Facility Start: 07-10-1985 End: 04-15-2024 Tobacco smoking status [facility] Smokes tobacco daily [facility] Start: 10-23-1981 End: 07-10-2023 History of tobacco use Cigarette Smoker [facility] Start: 08-20-2021 End: 02-25-2025 Alcohol intake Ex-drinker (finding) [facility] Start: 06-23-2021 End: 01-10-2022 History SDOH Alcohol Frequency 1 [facility] Start: 06-23-2021 Tobacco Comment starte age 13. [facility] Start: 1970 Sex Assigned At Female [facility] Work Phone: Start: 04-14-2021 End: 10-14-2022 Exposure to SARS-CoV-2 (event) Not sure [facility] Start: 12-13-2021 End: 05-11-2022 Tobacco smoking status NHIS Ex-smoker [facility] Start: 12-13-2021 End: 12-26-2022 Cigarettes smoked current (pack per day) - Reported 1 [facility] Work Phone: Start: 12-13-2021 End: 04-15-2024 Tobacco use and exposure Smokeless tobacco non-user [facility] Start: 12-13-2021 End: 05-09-2022 Tobacco Comment started age 13, quit 52 days ago [facility] Start: 01-10-2022 History SDOH Financial 5 [facility] Start: 01-10-2022 End: 03-08-2022 History SDOH Transport Med 2 [facility] Start: 03-08-2022 History SDOH Financial 4 [facility] Start: 10-23-1981 End: 07-10-2023 History of tobacco use Current smoker [facility] Start: 05-11-2022 Tobacco Comment started age 13. [facility] Start: 03-28-2021 Tobacco smoking status NHIS Unknown if ever smoked [facility] Start: 02-09-2023 Tobacco Comment started age 13. Resumed 1 PPD 10/2022 [facility] Start: 02-09-2023 Alcohol Comment recovering since 2017. [facility] Start: 06-23-2021 End: 12-26-2022 Alcohol Use Disorder Identification Test - Consumption [AUDIT-C] [facility] Work Phone: How often to you hav e a drink containing alcohol? Never [facility] Work Phone: Average Number of Drinks Not on file [facility] Work Phone: How hard is it for y ou to pay for the very basics like food, housing, medical care, and heating Not very hard [facility] (I/We) worried jonelle er (my/our) food would run out before (I/we) got money to buy more. Never true [facility] In the past 12 month s, was there a time when you were not able to pay the mortgage or rent on time? No [facility] Start: 09-16-2019 Gender identity Identifies as female gender (finding) [facility] Work Phone: History of tobacco use Passive smoker [facility] Start: 04-15-2024 Tobacco Comment started age 13 [facility] Start: 04-15-2024 Alcohol Comment recovering since 2017 [facility] Start: 04-28-2021 Alcoholic beverage intake Current drinker of alcohol (finding) [facility] Medical Equipment Procedure Code Equipment Code Equipment Origin al Text Equipment Identifier Dates Graft Infuse 18m m Large Ii Bovine Collagen Rhbmp-2 26mm Bone Absorbable - [id number] Start: 01-07-2022 [place] Al Interbody [id number] Start: 01-07-2022 [place] Buttress Plate 22mm [id number] Start: 01-07-2022 [place] Screw 6mm X 26mm [id number] Start: 01-07-2022 Screw Janessa 3 Hui nium Set Adriel Spine - [id number] Start: 02-23-2022 Ricardo Janessa 3 6mm 48 0mm Spinal - [id number] Start: 02-23-2022 [place] Polyaxia l Screw 100mm X 9.5mm [id number] Start: 02-23-2022 Screw Janessa 3 Serr marlyn 6.5mm 55mm Bone Polyaxial Nonsterile Spine - [id number] Start: 02-23-2022 Screw Janessa 3 Serr marlyn 7.5mm 50mm Bone Polyaxial Nonsterile Spine - [id number] Start: 02-23-2022 [place] Polyaxia l Screw 90mm X 8.5mm [id number] Start: 02-23-2022 Screw Janessa 3 Serr marlyn 6.5mm 50mm Bone Polyaxial Nonsterile Spine - [id number] Start: 02-23-2022 Screw Janessa 3 Serr marlyn 7.5mm 45mm Bone Polyaxial Nonsterile Spine - [id number] Start: 02-23-2022 Prolift Expandab le Spacer 10mm X 28mm X 10-16mm 15deg [id number] Start: 02-23-2022 Prolift Expandab le Spacer 10mm X 28mm X 10-16mm 7deg [id number] Start: 02-23-2022 Prolift Expandab le Spacer 10mm X 28mm X 10-16mm 7deg [id number] Start: 02-23-2022 Graft Infuse 20g a Medium Bovine Collagen Rhbmp-2 2x1in Bone Vial Absorbable - [id number] Start: 08-23-2023 Graft Bone Sub 5 cc Dbm Inert Reverse Phase Carrier Gel Synthetic Osteosparx - [id number] Start: 08-23-2023 Screw Janessa 3 Hui nium Set Adriel Spine - [id number] Start: 08-23-2023 Ricardo Janessa 6mm Hui nium 120mm Spinal - [id number] Start: 08-23-2023 Ricardo Janessa 6mm Hui nium 110mm Spinal - [id number] Start: 08-23-2023 Screw Janessa 3 Serr marlyn 7.5mm 55mm Bone Polyaxial Nonsterile Spine - [id number] Start: 08-23-2023 Screw Janessa 3 Serr marlyn 7.5mm 45mm Bone Polyaxial Nonsterile Spine - [id number] Start: 08-23-2023 Screw Janessa 3 Serr marlyn 7.5mm 50mm Bone Polyaxial Nonsterile Spine - [id number] Start: 08-23-2023 Screw Janessa 3 Serr marlyn 8.5mm 45mm Bone Polyaxial Nonsterile Spine [id number] Start: 08-23-2023 Prolift Expandab le Spacer 10mm X 28mm X 10-16mm 15deg [id number] Start: 08-23-2023 Functional Status Date Assessment Result Facility 08-27-2023 Are you deaf, or do you have serious difficulty hearing No 08/27/2023 2:26 PM Daina Ramírez, [place] No [facility] 08-27-2023 Are you blind, or do you have serious difficulty seeing, even when wearing glasses No 08/27/2023 2:26 PM Daina Ramírez RN No [facility] 08-27-2023 Do you have serious difficulty walking or climbing stairs No 08/27/2023 2:26 PM Daina Ramírez RN No [facility] 08-27-2023 Do you have difficul ty dressing or bathing No 08/27/2023 2:26 PM Daina Ramírez, [place] No [facility] 08-27-2023 Because of a physica l, mental, or emotional condition, do you have difficulty doing errands alone such as visiting a physician's office or shopping No 08/27/2023 2:26 PM Daina Ramírez RN No [facility] Mental Status Date Assessment Result Facility 08-27-2023 Because of a physica l, mental, or emotional condition, do you have serious difficulty concentrating, remembering, or making decisions No 08/27/2023 2:26 PM Daina Ramírez, [place]IS[place] No [facility] Clinical Notes 09-14-2015 to 02-25-2025 An Dorman MA - 02/25/2025 11:02 AM Tim Noyola V, DO - 02/25/2025 10:55 AM An Morillo MA - 02/25/2025 10:30 AM Ambrose Eller MD - 02/24/2025 4:11 PM EDTPatient Instructions Note Date & Type Note Facility 02-25-2025 Note HNO ID: [id number] Author: AN DORMAN MA Service: ? Author Type: Brand Recorder Type: Progress Notes Filed: 02/25/2025 11:04 Note Text: PT ASSESSMENT - CASTING ROOM Elsy presents for Application of brace. Applied DonJoy Short thumb spica hand based brace size small to Left hand Patient has been instructed in Care and proper application of brace. Patient signed Patricia RODRÍGUEZ electronically for billing and verbalized understanding. An Dorman MA [facility] 02-25-2025 History of Present illness Narrative PT ASSESSMENT - CASTING ROOM Elsy presents for Application of brace. Applied DonJoy Short thumb spica hand based brace size small to Left hand Patient has been instructed in Care and proper application of brace. Patient signed Patricia RODRÍGUEZ electronically for billing and verbalized understanding. An Dorman MA Associated Order(s): Additional Injections: L extensor compartment 1 Post-Procedure Diagnose(s): Tendinitis of thumb Subjective The patient is a 54-year-old female presenting for left thumb pain. Left Thumb Pain: - Pain localized to the thumb, with minimal involvement of the wrist. - Onset 2 months ago, following use of free weights. - Aggravated by gripping, pinching, and lifting objects as light as 5 lbs. - Pain is more pronounced in the thumb joint rather than the wrist. - Denies pain over the radial styloid. - Has tried massage and wrapping the thumb with no relief. - Pain interferes with daily activities, including using walking sticks and a walker. - Left-handed; pain significantly impacts ability to perform tasks. - Has a history of weak wrists and uses gloves when lifting weights. - Denies pain with wrist and thumb extension. Lumbar Spinal Fusion: - Has undergone 4 back surgeries in the past 3 years. - Fused from L1 to S1 with 5 cages and rods. - Participates in aqua therapy at [facility]. - Uses a walker for mobility. Musculoskeletal: (+) left thumb pain, (+) left thumb weakness, (-) wrist pain Objective Last menstrual period 03/02/2015. General: No acute distress. 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 Imaging: - X-ray: No degenerative changes or bony abnormalities. Assessment & Plan 1. De Quervain's tenosynovitis, left (M65.4) 2. Tendinitis of thumb (M77.8) - Exam findings and symptomatology consistent with thumb extensor tendinitis; no evidence of de Quervain's tenosynovitis. - Recent X-rays show no osseous abnormalities or degenerative changes. - Administered Celestone injection into the tendon sheath to reduce inflammation. - Fitted patient with an Exos thumb splint to immobilize the thumb for a short period of a few days to allow inflammation to subside. - Advised patient on the use of the splint, which can be removed for showering and pool activities. - Patient understands and agrees with the treatment plan. Additional Injections: L extensor compartment 1 for de Quervain's tenosynovitis 02/25/2025 10:57 AM The procedure site was prepped in the usual sterile fashion. Medications: 3 mg betamethasone acetate-betamethasone sodium phosphate 6 mg/mL Anesthetics: 1 mL lidocaine (PF) 10 mg/mL (1 %); 1 mL BUPivacaine (PF) 0.5 % (5 mg/mL) Outcome: tolerated well, no immediate complications Post-injection instructions were reviewed with the patient and the patient voiced understanding of these instructions. Informed Consent Consent Obtained: Verbal [place] Protocol SIGN IN TIME OUT Recording using ambient [employer] software for draft documentation of the visit was discussed with the patient/authorized pharmacy services representative; all questions welcomed and answered. Patient/authorized pharmacy services representative agreed to proceed Patient presents with: Left wrist DeQuervain's: Referred by [facility] X-ray 02/21/25 AMB ROOMING INTAKE FLOWSHEET DATA Pain Pain Level: 2 Pain Location: (Left thumb) Description: (Feels like she strained her thumb) Duration Amount of Time: 2 Duration Units: Months Frequency: Intermittent Intervention/Comfort measure: Medication documented in this encounter [facility] 02-25-2025 Note HNO ID: [id number] Author: TIM TRIPP DO Service: ? Author Type: Physician Type: Progress Notes Filed: 02/25/2025 10:58 Note Text: Subjective The patient is a 54-year-old female presenting for left thumb pain. Left Thumb Pain: - Pain localized to the thumb, with minimal involvement of the wrist. - Onset 2 months ago, following use of free weights. - Aggravated by gripping, pinching, and lifting objects as light as 5 lbs. - Pain is more pronounced in the thumb joint rather than the wrist. - Denies pain over the radial styloid. - Has tried massage and wrapping the thumb with no relief. - Pain interferes with daily activities, including using walking sticks and a walker. - Left-handed; pain significantly impacts ability to perform tasks. - Has a history of weak wrists and uses gloves when lifting weights. - Denies pain with wrist and thumb extension. Lumbar Spinal Fusion: - Has undergone 4 back surgeries in the past 3 years. - Fused from L1 to S1 with 5 cages and rods. - Participates in aqua therapy at [facility]. - Uses a walker for mobility. Musculoskeletal: (+) left thumb pain, (+) left thumb weakness, (-) wrist pain Objective Last menstrual period 03/02/2015. General: No acute distress. 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 Imaging: - X-ray: No degenerative changes or bony abnormalities. Assessment AND Plan 1. De Quervain's tenosynovitis, left (M65.4) 2. Tendinitis of thumb (M77.8) - Exam findings and symptomatology consistent with thumb extensor tendinitis; no evidence of de Quervain's tenosynovitis. - Recent X-rays show no osseous abnormalities or degenerative changes. - Administered Celestone injection into the tendon sheath to reduce inflammation. - Fitted patient with an Exos thumb splint to immobilize the thumb for a short period of a few days to allow inflammation to subside. - Advised patient on the use of the splint, which can be removed for showering and pool activities. - Patient understands and agrees with the treatment plan. Additional Injections: L extensor compartment 1 for de Quervain's tenosynovitis 02/25/2025 10:57 AM The procedure site was prepped in the usual sterile fashion. Medications: 3 mg betamethasone acetate-betamethasone sodium phosphate 6 mg/mL Anesthetics: 1 mL lidocaine (PF) 10 mg/mL (1 %); 1 mL BUPivacaine (PF) 0.5 % (5 mg/mL) Outcome: tolerated well, no immediate complications Post-injection instructions were reviewed with the patient and the patient voiced understanding of these instructions. Informed Consent Consent Obtained: Verbal [place] Protocol SIGN IN TIME OUT Recording using [employer] software for draft documentation of the visit was discussed with the patient/authorized pharmacy services representative; all questions welcomed and answered. Patient/authorized pharmacy services representative agreed to proceed [facility] 02-25-2025 Note HNO ID: [id number] Author: AN DORMAN MA Service: ? Author Type: Brand Recorder Type: Progress Notes Filed: 02/25/2025 10:58 Note Text: Patient presents with: Left wrist DeQuervain's: Referred by [facility] X-ray 02/21/25 AMB ROOMING INTAKE FLOWSHEET DATA Pain Pain Level: 2 Pain Location: (Left thumb) Description: (Feels like she strained her thumb) Duration Amount of Time: 2 Duration Units: Months Frequency: Intermittent Intervention/Comfort measure: Medication [facility] 02-24-2025 Note HNO ID: [id number] Author: AMBROSE BIRCH MD Service: ? Author Type: Physician Type: Progress Notes Filed: 02/24/2025 16:14 Note Text: SPINE SURGERY ESTABLISHED PATIENT PCP: Elvin Diaz MD REFERRING PROVIDER: No referring provider defined for this encounter. Assessment/Plan (G89.29, M54.41) Chronic bilateral low back pain with right-sided sciatica (primary encounter diagnosis) 1. Chronic bilateral low back pain with right-sided sciatica (G89.29) - Patient reports significant improvement in pain following SI joint corticosteroid injection on December 24, but still experiences weakness, spasms, and paresthesia in the right leg. - Physical exam reveals 4+/5 strength in right dorsiflexion; hyperesthesia noted in the right leg. - Discussed potential for up to 3-4 corticosteroid injections per year; patient inquires about scheduling next injection in approximately 6 months. - Ordered DEXA scan; last performed in 2020. - Continue current physical therapy regimen and home exercises. - April will contact patient to provide an updated spinal implant card. - Follow-up appointment scheduled to reassess symptoms and discuss further management. Subjective History of Present Illness: Elsy Dinero is a 54-year-old female presenting for follow-up after a recent sacroiliac (SI) joint injection. Elsy reports significant improvement in pain following the SI joint injection on December 24, describing it as great. Prior to the injection, she experienced crippling pain when walking short distances, which has now improved. She still experiences weakness and spasms in the right leg after exertion, and the leg feels droppy when tired. She also reports a persistent knot in the perineum that wraps around and describes the leg as feeling slappy. She notes a sharp pull in the leg, which she manages with stretching exercises learned in physical therapy. She describes a tickly sensation in the right leg, which she refers to as hyper feeling, and notes that this sensation is not present in the left leg. Elsy is concerned about the frequency of cortisone injections due to a family history of osteoporosis. Her last bone density scan was in 2020. She is considering limiting the injections to twice a year. Elsy has been actively engaging in physical activities, including pool therapy 4-5 times a week and using exercise machines 4 times a week. She also uses free weights at home 3 times a week but recently injured her thumb, which she plans to have evaluated. She is left-handed and relies on her hands to use her walker. She expresses uncertainty about her ability to maintain a 40-hour work week due to her physical limitations. She mentions that she can power through a day but is unsure about sustaining this level of activity long-term. Elsy has a history of a pelvic and femur fracture at age 16, which required surgical repair. She also has a spinal implant and requests an updated card for security screenings. Genitourinary: (+) perineal knot sensation Musculoskeletal: (+) right leg weakness, (+) right leg muscle spasms, (+) right leg sharp pulling pain Neurological: (+) right leg tingling, (+) right leg drooping Major Risk Factors Notable surgical risk factors: Smoking status: Every Day BMI:26.13 kg/m2. Obesity normal BMI: 26.13 kg/m2 High: BMI > 40 Moderate: BMI 30-40 Normal: BMI < 30 Diabetes normal Last HbA1C: 5.4 - 04/21/2015 High: A1C > 8 Moderate: A1C 7-8 Normal: A1C < 7 Hx of DVT / PE normal High: dx of DVT / PE Normal: no dx of DVT / PE Smoking High Risk Last Status: Every Day High: Current smoker Normal: Non smoker Narcotics Use normal High:NarxCare >=300 Moderate: 100-299 Normal: 0-99 Depression normal High: PHQ-9 >14 Moderate: PHQ-9 5-14 Normal: PHQ-9 < 5 Data from [facility] Epic on prior therapies: Last PT session: No date on file in last 365 days Last Epidural Steroid Injection: No epidural injection on file for last 365 days Last Spine Surgery: Date - 08/23/2023 with Ambrose Birch. Procedure: - ARTHRODESIS POSTERIOR INTERBODY 1 NTRSPC LUMBAR, POSTERIOR NON-SEGMENTAL INSTRUMENTATION, INSJ BIOMCHN DEV INTERVERTEBRAL DSC SPC W/ARTHRD, VIEYRA FACETECTOMYANDFORAMOT 1 VRT SGM EA ADDL SGM Objective PHYSICAL EXAM Wt 71.2 kg (157 lb) LMP 03/02/2015 BMI 26.13 kg/m? General: No acute distress. MSK/Ext: Right dorsiflexion strength 4+/5. other muscles normal no tenderness to palpation Results: Imaging: (2020) Bone Density Scan Medical Decision Making: Problems: Low: Stable chronic illness Data: Unique source(s) for external note(s) reviewed: 1 Unique test result(s) reviewed: 2 Discussed management or test w/ external physician/QHCP/source Risk: Low: Low risk from testing/treatment Medical Decision Making Level: 3 - Low [facility] 02-24-2025 History of Present illness Narrative Images from the original note were not included. SPINE SURGERY ESTABLISHED PATIENT PCP: Elvin Diaz MD REFERRING PROVIDER: No referring provider defined for this encounter. Assessment/Plan (G89.29, M54.41) Chronic bilateral low back pain with right-sided sciatica (primary encounter diagnosis) 1. Chronic bilateral low back pain with right-sided sciatica (G89.29) - Patient reports significant improvement in pain following SI joint corticosteroid injection on December 24, but still experiences weakness, spasms, and paresthesia in the right leg. - Physical exam reveals 4+/5 strength in right dorsiflexion; hyperesthesia noted in the right leg. - Discussed potential for up to 3-4 corticosteroid injections per year; patient inquires about scheduling next injection in approximately 6 months. - Ordered DEXA scan; last performed in 2020. - Continue current physical therapy regimen and home exercises. - April will contact patient to provide an updated spinal implant card. - Follow-up appointment scheduled to reassess symptoms and discuss further management. Subjective History of Present Illness: Elsy Dinero is a 54-year-old female presenting for follow-up after a recent sacroiliac (SI) joint injection. Elsy reports significant improvement in pain following the SI joint injection on December 24, describing it as great. Prior to the injection, she experienced crippling pain when walking short distances, which has now improved. She still experiences weakness and spasms in the right leg after exertion, and the leg feels droppy when tired. She also reports a persistent knot in the perineum that wraps around and describes the leg as feeling slappy. She notes a sharp pull in the leg, which she manages with stretching exercises learned in physical therapy. She describes a tickly sensation in the right leg, which she refers to as hyper feeling, and notes that this sensation is not present in the left leg. Elsy is concerned about the frequency of cortisone injections due to a family history of osteoporosis. Her last bone density scan was in 2020. She is considering limiting the injections to twice a year. Elsy has been actively engaging in physical activities, including pool therapy 4-5 times a week and using exercise machines 4 times a week. She also uses free weights at home 3 times a week but recently injured her thumb, which she plans to have evaluated. She is left-handed and relies on her hands to use her walker. She expresses uncertainty about her ability to maintain a 40-hour work week due to her physical limitations. She mentions that she can power through a day but is unsure about sustaining this level of activity long-term. Elsy has a history of a pelvic and femur fracture at age 16, which required surgical repair. She also has a spinal implant and requests an updated card for security screenings. Genitourinary: (+) perineal knot sensation Musculoskeletal: (+) right leg weakness, (+) right leg muscle spasms, (+) right leg sharp pulling pain Neurological: (+) right leg tingling, (+) right leg drooping Major Risk Factors Notable surgical risk factors: Smoking status: Every Day BMI:26.13 kg/m2. Obesity normal BMI: 26.13 kg/m2 High: BMI > 40 Moderate: BMI 30-40 Normal: BMI < 30 Diabetes normal Last HbA1C: 5.4 - 04/21/2015 High: A1C > 8 Moderate: A1C 7-8 Normal: A1C < 7 Hx of DVT / PE normal High: dx of DVT / PE Normal: no dx of DVT / PE Smoking High Risk Last Status: Every Day High: Current smoker Normal: Non smoker Narcotics Use normal High:NarxCare >=300 Moderate: 100-299 Normal: 0-99 Depression normal High: PHQ-9 >14 Moderate: PHQ-9 5-14 Normal: PHQ-9 < 5 Data from [facility] Epic on prior therapies: Last PT session: No date on file in last 365 days Last Epidural Steroid Injection: No epidural injection on file for last 365 days Last Spine Surgery: Date - 08/23/2023 with Ambrose Birch. Procedure: - ARTHRODESIS POSTERIOR INTERBODY 1 NTRSPC LUMBAR, POSTERIOR NON-SEGMENTAL INSTRUMENTATION, INSJ BIOMCHN DEV INTERVERTEBRAL DSC SPC W/ARTHRD, VIEYRA FACETECTOMY&FORAMOT 1 VRT SGM EA ADDL SGM Objective PHYSICAL EXAM Wt 71.2 kg (157 lb) LMP 03/02/2015 BMI 26.13 kg/m General: No acute distress. MSK/Ext: Right dorsiflexion strength 4+/5. other muscles normal no tenderness to palpation Results: Imaging: (2020) Bone Density Scan Medical Decision Making: Problems: Low: Stable chronic illness Data: Unique source(s) for external note(s) reviewed: 1 Unique test result(s) reviewed: 2 Discussed management or test w/ external physician/QHCP/source Risk: Low: Low risk from testing/treatment Medical Decision Making Level: 3 - Low documented in this encounter [facility] 02-21-2025 History of Present illness Narrative Radiology Service Progress Note PATIENT NAME: Elsy Dinero DATE OF SERVICE: February 21, 2025 TIME: 10:50 AM PATIENT IDENTITY VERIFICATION COMPLETED USING TWO (2) IDENTIFIERS: Name and Date of confirmed by patient verbally. FALL SCREENING: Has the patient had 2 falls in the last year or 1 fall with injury or currently using an Ambulatory Assistive Device (Walker, Cane, Wheelchair, Crutches, etc.)? No PATIENT GENDER DATA: Assigned female at . status: : No status: NO. PATIENT RELEVANT IMPLANT DATA REVIEWED: Not Applicable PATIENT PRESENTS WITH AN IMPLANTABLE OR ATTACHED MAGAZINE WRITER: No RADIOLOGY DEPARTMENT: General X-ray: Exam(s) Completed: Upper Extremity X-Ray(s): Hand, left PERIPHERAL IV DATA: Not applicable SIGNED BY: RT Sofia(R) February 21, 2025 10:50 AM documented in this encounter [facility] 02-21-2025 Note HNO ID: [id number] Author: TUNG LR RT(R) Service: ? Author Type: Technologist Type: Progress Notes Filed: 02/21/2025 10:55 Note Text: Radiology Service Progress Note PATIENT NAME: Elsy Dinero DATE OF SERVICE: February 21, 2025 TIME: 10:50 AM PATIENT IDENTITY VERIFICATION COMPLETED USING TWO (2) IDENTIFIERS: Name and Date of confirmed by patient verbally. FALL SCREENING: Has the patient had 2 falls in the last year or 1 fall with injury or currently using an Ambulatory Assistive Device (Walker, Cane, Wheelchair, Crutches, etc.)? No PATIENT GENDER DATA: Assigned female at . status: : No status: NO. PATIENT RELEVANT IMPLANT DATA REVIEWED: Not Applicable PATIENT PRESENTS WITH AN IMPLANTABLE OR ATTACHED MAGAZINE WRITER: No RADIOLOGY DEPARTMENT: General X-ray: Exam(s) Completed: Upper Extremity X-Ray(s): Hand, left PERIPHERAL IV DATA: Not applicable SIGNED BY: RT Sofia(Ad) February 21, 2025 10:[address] [facility] 02-21-2025 Instructions Africa Caba PA - 02/21/2025 10:25 AM EDT What is de Quervain tendinopathy? This is a condition that causes pain in the thumb and wrist. It is caused by a problem with a tendon. Tendons are strong bands of tissue that connect muscles to bones. de Quervain tendinopathy is sometimes called de Quervain tenosynovitis. de Quervain tendinopathy involves tendons that connect the forearm muscles to the thumb. These tendons and the covering around them get inflamed. This causes symptoms. Most often, de Quervain tendinopathy happens when people use their wrist and thumb too much in certain ways. This includes gripping or grabbing objects (like a tool, golf club, or tennis racket) over and over. But, it can also happen to people for no obvious reason. What are the symptoms of de Quervain tendinopathy? Symptoms include: ?Pain in the wrist or thumb ?Trouble gripping objects ?Swelling in the wrist Will I need tests? Probably not. Your doctor can usually tell if you have de Quervain tendinopathy by learning about your symptoms and doing an exam. During the exam, they will carefully check your thumb, hand, and wrist. How is de Quervain tendinopathy treated? Treatment includes: ?Resting your thumb - To avoid moving your thumb, you can wear a splint made for keeping the thumb still. ?Ice - You can put a cold gel pack, bag of ice, or bag of frozen vegetables on the painful or swollen area every 4 to 6 hours, for 15 minutes each time. Put a towel between the ice (or other cold object) and your skin. ?Pain-relieving medicines called NSAIDs - This is large group of medicines that includes ibuprofen (sample brand names: Advil, Motrin) and naproxen (sample brand name: Aleve). ?Exercises - After your symptoms improve, your doctor or nurse will show you exercises to help your wrist and thumb move more easily. If your symptoms don't get better with treatment, your doctor might recommend other treatments. These can include: ?Getting a shot of a steroid medicine around the tendon in your wrist - This can help with pain. ?Surgery to cut or loosen the covering around the tendon documented in this encounter [facility] 02-21-2025 Note HNO ID: [id number] Author: AFRICA CABA PA Service: ? Author Type: Physician [employer] Type: Progress Notes Filed: 02/21/2025 11:26 Note Text: URGENT CARE KEIRYSANDHYA Dinero is a 54 year old female. Patient presents with: Hand Pain: L thumb into wrist pain x2 months, denies injury or fall HPI Left Thumb Pain and Weakness: - Pain and weakness in the left thumb x2 months. - Pain localized to the base of the thumb, exacerbated by gripping and clenching. - Denies significant pain at rest. - Reports soreness to palpation along the thumb. - Left-handed; difficulty performing tasks such as opening bottles and using walking sticks. - Has tried wrapping the thumb with minimal relief. - Taking Motrin 600 mg TID for back pain, which provides some relief for thumb pain. Back Pain: - History of four major back surgeries. - Currently taking Motrin 600 mg TID for back pain management. Review of Systems Musculoskeletal: (+) left thumb pain, (+) left thumb soreness Neurological: (+) left hand weakness, (+) difficulty gripping, (+) dropping objects Objective BP 135/83 Pulse 80 Temp 36.6 ?C (97.8 ?F) Resp 18 Wt 71.5 kg (157 lb 10.1 oz) LMP 03/02/2015 SpO2 99% BMI 26.23 kg/m? Physical Exam Vitals and nursing note reviewed. Constitutional: General: She is not in acute distress. Appearance: Normal appearance. She is not toxic-appearing. Musculoskeletal: Left hand: Tenderness and bony tenderness present. No swelling or deformity. Normal range of motion. Decreased strength of thumb/finger opposition. Normal capillary refill. Normal pulse. Comments: Patient has tenderness over the dorsum of the left thumb mainly over the first metacarpal. She has positive Dina's test. Slightly decreased strength with thumb to finger opposition. She has full ROM all digits left hand. She is able to touch each finger with the thumb. Normal finger spread. Normal wrist extension. Radial pulse 2+. 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 Skin: General: Skin is warm and dry. Neurological: Mental Status: She is alert. { 1. Pain of left thumb (M79.645) 2. De Quervain's tenosynovitis, left (M65.4) - Left thumb pain for two months, exacerbated by gripping and clenching; tenderness noted along the tendon. - Dina's test positive, indicating possible De Quervain's tenosynovitis. - Currently taking Motrin 600 mg TID for back pain. - Ordered X-ray of the left hand to rule out arthritis or other abnormalities. - Referral to orthopedics for further evaluation and potential corticosteroid injection. and Recording using [employer] software for draft documentation of the visit was discussed with the patient/authorized pharmacy services representative; all questions welcomed and answered. Patient/authorized pharmacy services representative agreed to proceed Diagnosis and treatment plan were discussed and questions were answered to the patient's satisfaction. Pt acknowledged understanding of concepts and follow up plan. Specific signs and symptoms that would indicate the need for higher level of care were discussed in detail warranting prompt ER evaluation. History and Record Review External record(s) reviewed: prior outpatient record. Differential Diagnoses - De Quervain's tenosynovitis is more likely for the following reason(s): suggested by HANDP - Fracture is less likely for the following reason(s): no evidence on imaging Management I performed an independent interpretation of the following:imaging Imaging: My interpretation is No fracture or dislocation Disposition The patient was discharged. OTC Medications were advised: Continue Motrin as Procedures [facility] 02-21-2025 History of Present illness Narrative URGENT CARE KEIRY Dinero is a 54 year old female. Patient presents with: Hand Pain: L thumb into wrist pain x2 months, denies injury or fall HPI Left Thumb Pain and Weakness: - Pain and weakness in the left thumb x2 months. - Pain localized to the base of the thumb, exacerbated by gripping and clenching. - Denies significant pain at rest. - Reports soreness to palpation along the thumb. - Left-handed; difficulty performing tasks such as opening bottles and using walking sticks. - Has tried wrapping the thumb with minimal relief. - Taking Motrin 600 mg TID for back pain, which provides some relief for thumb pain. Back Pain: - History of four major back surgeries. - Currently taking Motrin 600 mg TID for back pain management. Review of Systems Musculoskeletal: (+) left thumb pain, (+) left thumb soreness Neurological: (+) left hand weakness, (+) difficulty gripping, (+) dropping objects Objective BP 135/83 Pulse 80 Temp 36.6 C (97.8 F) Resp 18 Wt 71.5 kg (157 lb 10.1 oz) LMP 03/02/2015 SpO2 99% BMI 26.23 kg/m Physical Exam Vitals and nursing note reviewed. Constitutional: General: She is not in acute distress. Appearance: Normal appearance. She is not toxic-appearing. Musculoskeletal: Left hand: Tenderness and bony tenderness present. No swelling or deformity. Normal range of motion. Decreased strength of thumb/finger opposition. Normal capillary refill. Normal pulse. Comments: Patient has tenderness over the dorsum of the left thumb mainly over the first metacarpal. She has positive Dina's test. Slightly decreased strength with thumb to finger opposition. She has full ROM all digits left hand. She is able to touch each finger with the thumb. Normal finger spread. Normal wrist extension. Radial pulse 2+. 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 Skin: General: Skin is warm and dry. Neurological: Mental Status: She is alert. { 1. Pain of left thumb (M79.645) 2. De Quervain's tenosynovitis, left (M65.4) - Left thumb pain for two months, exacerbated by gripping and clenching; tenderness noted along the tendon. - Dina's test positive, indicating possible De Quervain's tenosynovitis. - Currently taking Motrin 600 mg TID for back pain. - Ordered X-ray of the left hand to rule out arthritis or other abnormalities. - Referral to orthopedics for further evaluation and potential corticosteroid injection. and Recording using [employer] software for draft documentation of the visit was discussed with the patient/authorized pharmacy services representative; all questions welcomed and answered. Patient/authorized pharmacy services representative agreed to proceed Diagnosis and treatment plan were discussed and questions were answered to the patient's satisfaction. Pt acknowledged understanding of concepts and follow up plan. Specific signs and symptoms that would indicate the need for higher level of care were discussed in detail warranting prompt ER evaluation. History and Record Review External record(s) reviewed: prior outpatient record. Differential Diagnoses - De Quervain's tenosynovitis is more likely for the following reason(s): suggested by H&P - Fracture is less likely for the following reason(s): no evidence on imaging Management I performed an independent interpretation of the following:imaging Imaging: My interpretation is No fracture or dislocation Disposition The patient was discharged. OTC Medications were advised: Continue Motrin as Procedures documented in this encounter [facility] 02-14-2025 Telephone encounter Note Fasting labs for latter March. [facility] 02-14-2025 Miscellaneous Notes Fasting labs for latter March. Patient is requesting to have orders and any additional necessary orders submitted into chart. Patient is scheduled for upcoming wellness exam with PCP on 04/08/25. documented in this encounter [facility] 02-14-2025 Telephone encounter Note Patient is requesting to have orders and any additional necessary orders submitted into chart. Patient is scheduled for upcoming wellness exam with PCP on 04/08/25. [facility] 12-19-2024 Telephone encounter Note Patient contacted Pain Management with [employer] on 12/19/2024 at 1357 inquiring if she is able to take anything for pain relief leading up to her injection procedure on 12/24/2024. Patient requesting return phone call at [phone]. Procedure Instructions sent via [employer] on 12/02/2024, which were reviewed by patient. Informed patient via telephone that she is able to take Tylenol and her prescribed Robaxin. Advised patient that she can take any medication NOT listed on Procedure Instructions. Directed patient to referring provider ([facility]) for additional prescription requests. Patient verbalized understanding and voiced no additional questions/concerns. [facility] 12-19-2024 Miscellaneous Notes Patient contacted Pain Management with [employer] on 12/19/2024 at 1357 inquiring if she is able to take anything for pain relief leading up to her injection procedure on 12/24/2024. Patient requesting return phone call at [phone]. Procedure Instructions sent via [employer] on 12/02/2024, which were reviewed by patient. Informed patient via telephone that she is able to take Tylenol and her prescribed Robaxin. Advised patient that she can take any medication NOT listed on Procedure Instructions. Directed patient to referring provider ([facility]) for additional prescription requests. Patient verbalized understanding and voiced no additional questions/concerns. documented in this encounter [facility] 12-02-2024 History of Present illness Narrative Images from the original note were not included. SPINE SURGERY ESTABLISHED PATIENT DATE OF SERVICE: 12/02/2024 DATE OF LAST VISIT: 09/02/2024 SURGERY DATE: 08/23/2023 Subjective HPI:Elsy Dinero is a 54 year old female presenting alone. At [facility], the patient reported that, while she is building her strength in her back, she has reported experiencing frequent spasms, feeling the sensation radiate into her legs and feet. She has finished her treatment at physical therapy, and while she is able to lift and do more with her strength renewed, she is still not completely better. She was previously taking gabapentin for her back pain, but has since stopped. Today, the patient reports that she is feeling about the same as before. She still feels pain radiating from her lower back and down to her legs, as well as experiencing spasms in her legs, radiating down to her feet. While she does feel better after having finished physical therapy, she is reporting continued difficulty walking, stating she is dependant on her walker as of now. She reports pain in both of her hips, primarily in her right hip. She has reported that she feels pain when sitting down for longer periods, needing to stand up and stretch to relieve this pain. She is unable to drive long distances as a result of this. She has had PAIN EVALUATION 12/02/2024 0939 Pain Level: 5 Pain Location: Back Description: Sharp Duration Amount of Time: 3 Duration Units: Years Frequency: Continuous Intervention/Comfort measure: Medication;Reposition;Relaxation;Cold; Heat Pain Radiation: Low back, bilateral hips and legs Aggravating Factors: Standing, Walking, Sitting Alleviating Factors: Exercising/activity AMBULATORY STATUS: Impaired Community Distances ANTIPLATELET OR ANTICOAGULATION STATUS: No PREVIOUS CONSERVATIVE TREATMENTS: Ibuprofen, Robaxin REVIEW OF SYSTEMS: GENERAL: No weight loss or malaise MUSCULOSKELETAL: SEE HPI NEURO: No history of syncope, paralysis, seizures or tremors Major Risk Factors Obesity normal BMI: 26.99 kg/m2 High: BMI > 40 Moderate: BMI 30-40 Normal: BMI < 30 Diabetes normal Last HbA1C: 5.4 - 04/21/2015 High: A1C > 8 Moderate: A1C 7-8 Normal: A1C < 7 Hx of DVT / PE normal High: dx of DVT / PE Normal: no dx of DVT / PE Smoking High Risk Last Status: Every Day High: Current smoker Normal: Non smoker Narcotics Use normal High:NarxCare >=300 Moderate: 100-299 Normal: 0-99 Depression normal High: PHQ-9 >14 Moderate: PHQ-9 5-14 Normal: PHQ-9 < 5 Data from [facility] Epic on prior therapies: Last PT session: No date on file in last 365 days Last Epidural Steroid Injection: No epidural injection on file for last 365 days Last Spine Surgery: Date - 08/23/2023 with Ambrose Birch. Procedure: - ARTHRODESIS POSTERIOR INTERBODY 1 NTRSPC LUMBAR, POSTERIOR NON-SEGMENTAL INSTRUMENTATION, INSJ BIOMCHN DEV INTERVERTEBRAL DSC SPC W/ARTHRD, VIEYRA FACETECTOMY&FORAMOT 1 VRT SGM EA ADDL SGM PAST MEDICAL HISTORY Diagnosis Date Acid reflux Acute gastritis without mention of hemorrhage 09/14/2011 Allergy-induced asthma, mild intermittent, uncomplicated (HCC) Asthma (HCC) Chronic midline low back pain without sciatica 05/17/2016 Duodenitis 09/14/2011 Duodenitis without mention of hemorrhage Facet arthropathy, lumbar 05/17/2016 Hemorrhage of gastrointestinal tract, unspecified Hirsutism 09/16/2019 Pure hypercholesterolemia 06/28/2021 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 Spinal stenosis, lumbar region, without neurogenic claudication 03/27/2015 Suicidal ideation 03/03/2022 Tobacco use disorder 04/11/2007 Vascular occlusion 01/07/2022 Intraoperative L common iliac artery occlusion PAST SURGICAL HISTORY Procedure Laterality Date ARTHROSCOPIC REMOVAL HARDWARE DEEP 05/17/2022 removal of iliac screws ESOPHAGOGASTRODUODENOSCOPY TRANSORAL DIAGNOSTIC 09/14/2011 EGD ILIAC REVASC ADD-ON Left 01/07/2022 L Common Iliac Artery endarterectomy LUMBAR SPINE FUSION COMBINED 02/23/2022 L2 to ilium instrumented fusion, L3, 4 and 5 laminectomy, L2-3, 3-4 and L5-S1 transforaminal lumbar interbody fusion. LUMBAR SPINE FUSION,ANTER APPRCH 01/07/2022 ALIF L4-L5. ORTHOPEDICS SURGERY HX 08/23/2023 L2-S1 implant removal & change PAST SURGICAL HISTORY OF 04/29/2012 excision of back lump SIGMOIDOSCOPY FLX DX W/COLLJ SPEC BR/WA IF PFRMD 09/14/2011 Sigmoidoscopy, flexible Current Outpatient Medications on File Prior to Visit Medication Sig spironolactone (ALDACTONE) 50 mg tablet Take 1 tablet by mouth two times a day. methocarbamol (ROBAXIN) 750 mg tablet Take 1 tablet by mouth three times a day as needed. lactobacillus rhamnosus (CULTURELLE) 10 billion cell capsule Take 1 capsule by mouth once daily. ibuprofen (MOTRIN ORAL) Take 600 mg by mouth three times a day. albuterol HFA (PROVENTIL HFA, VENTOLIN HFA) 90 mcg/actuation inhaler Inhale 2 Puffs as instructed every 4 hours as needed for wheezing/shortness of breath. docusate sodium (COLACE) 100 mg capsule Take 1 capsule by mouth two times a day. sennosides (SENNACON ORAL) Take 1 tablet by mouth once daily. triamcinolone acetonide (NASACORT AQ NASAL) Use 1 [place] in the nose as needed (allergies). fexofenadine (STANLEY) 180 mg tablet Take 180 mg by mouth once daily. famotidine (PEPCID) 20 mg tablet Take 20 mg by mouth two times a day. No current facility-administered medications on file prior to visit. Objective PHYSICAL EXAM Wt 73 kg (161 lb) LMP 03/02/2015 BMI 26.99 kg/m GENERAL APPEARANCE: Well nourished, well developed, and no apparent distress. NEURO PSYCH: Patient oriented to person, place, and time. Mood pleasant. Benign affect. 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 SENSORY: Normal sensory exam GAIT: Normal. REFLEXES: +2 to bilateral U/L extremities. STRAIGHT LEG TEST: Normal Good sagittal balance. NEURO TESTS: None DATA REVIEW: [facility] records independently reviewed Imaging and outside records independently reviewed Images independently reviewed with the patient 10/25/2024 CT Lumbar Spine Assessment/Plan (M48.062) Spinal stenosis of lumbar region with neurogenic claudication (primary encounter diagnosis) Low back and bilateral leg pain Elsy E Anisha has a condition that requires further workup. Medications: Robaxin 750mg to be taken every 12 hours as needed Bilateral SI Joint/Post Pelvis Sacroiliac Joint Injection with fluoro guidance (Dr. Roderick Vigil) Follow up: Four weeks, patient may follow up virtually or in person, advised to call if symptoms worsen. I spent a total of 20 minutes on the date of the service which included preparing to see the patient, [id number] patient care, completing clinical documentation, obtaining and/or reviewing separately obtained history, performing a medically appropriate examination, and counseling and educating the patient/family/caregiver. Scribe Attestation: By signing my name below, IIrineo , attest that this documentation has been prepared under the direction and in the presence of Dr. Ambrose Birch.Electronically Signed: Ana Maria Arreguin. December 02, 2024 Medical Decision Making: Problems: Low: Stable chronic illness Data: Unique source(s) for external note(s) reviewed: 1 Unique test result(s) reviewed: 1 Risk: Moderate: Moderate risk from testing/treatment Medical Decision Making Level: 3 - Low Provider Attestation: Ambrose Thakkar MD, personally performed the services described in this documentation. All medical record entries made by the scribe were at my direction and in my presence. I have reviewed the chart and discharge instructions (if applicable) and agree that the record reflects my personal performance and is accurate and complete. I spent a total of 20 minutes on the date of the service which included preparing to see the patient, [id number] patient care, completing clinical documentation, performing a medically appropriate examination, counseling and educating the patient/family/caregiver, and ordering medications, tests, or procedures Electronically Signed: Ambrose Birch MD December 02, 2024 5:40 PM SIGNATURE: Ambrose Birch MD PATIENT NAME: Elsy Dinero DATE: December 02, 2024 TIME: 9:54 AM PAGER: documented in this encounter [facility] 12-02-2024 Note HNO ID: [id number] Author: AMBROSE BIRCH MD Service: ? Author Type: Physician Type: Progress Notes Filed: 12/02/2024 17:41 Note Text: SPINE SURGERY ESTABLISHED PATIENT DATE OF SERVICE: 12/02/2024 DATE OF LAST VISIT: 09/02/2024 SURGERY DATE: 08/23/2023 Subjective HPI:Elsy Dinero is a 54 year old female presenting alone. At [facility], the patient reported that, while she is building her strength in her back, she has reported experiencing frequent spasms, feeling the sensation radiate into her legs and feet. She has finished her treatment at physical therapy, and while she is able to lift and do more with her strength renewed, she is still not completely better. She was previously taking gabapentin for her back pain, but has since stopped. Today, the patient reports that she is feeling about the same as before. She still feels pain radiating from her lower back and down to her legs, as well as experiencing spasms in her legs, radiating down to her feet. While she does feel better after having finished physical therapy, she is reporting continued difficulty walking, stating she is dependant on her walker as of now. She reports pain in both of her hips, primarily in her right hip. She has reported that she feels pain when sitting down for longer periods, needing to stand up and stretch to relieve this pain. She is unable to drive long distances as a result of this. She has had PAIN EVALUATION 12/02/2024 0939 Pain Level: 5 Pain Location: Back Description: Sharp Duration Amount of Time: 3 Duration Units: Years Frequency: Continuous Intervention/Comfort measure: Medication;Reposition;Relaxation;Cold; Heat Pain Radiation: Low back, bilateral hips and legs Aggravating Factors: Standing, Walking, Sitting Alleviating Factors: Exercising/activity AMBULATORY STATUS: Impaired Community Distances ANTIPLATELET OR ANTICOAGULATION STATUS: No PREVIOUS CONSERVATIVE TREATMENTS: Ibuprofen, Robaxin REVIEW OF SYSTEMS: GENERAL: No weight loss or malaise MUSCULOSKELETAL: SEE HPI NEURO: No history of syncope, paralysis, seizures or tremors Major Risk Factors Obesity normal BMI: 26.99 kg/m2 High: BMI > 40 Moderate: BMI 30-40 Normal: BMI < 30 Diabetes normal Last HbA1C: 5.4 - 04/21/2015 High: A1C > 8 Moderate: A1C 7-8 Normal: A1C < 7 Hx of DVT / PE normal High: dx of DVT / PE Normal: no dx of DVT / PE Smoking High Risk Last Status: Every Day High: Current smoker Normal: Non smoker Narcotics Use normal High:NarxCare >=300 Moderate: 100-299 Normal: 0-99 Depression normal High: PHQ-9 >14 Moderate: PHQ-9 5-14 Normal: PHQ-9 < 5 Data from [facility] Epic on prior therapies: Last PT session: No date on file in last 365 days Last Epidural Steroid Injection: No epidural injection on file for last 365 days Last Spine Surgery: Date - 08/23/2023 with Ambrose Birch. Procedure: - ARTHRODESIS POSTERIOR INTERBODY 1 NTRSPC LUMBAR, POSTERIOR NON-SEGMENTAL INSTRUMENTATION, INSJ BIOMCHN DEV INTERVERTEBRAL DSC SPC W/ARTHRD, VIEYRA FACETECTOMYANDFORAMOT 1 VRT SGM EA ADDL SGM PAST MEDICAL HISTORY Diagnosis Date Acid reflux Acute gastritis without mention of hemorrhage 09/14/2011 Allergy-induced asthma, mild intermittent, uncomplicated (HCC) Asthma (HCC) Chronic midline low back pain without sciatica 05/17/2016 Duodenitis 09/14/2011 Duodenitis without mention of hemorrhage Facet arthropathy, lumbar 05/17/2016 Hemorrhage of gastrointestinal tract, unspecified Hirsutism 09/16/2019 Pure hypercholesterolemia 06/28/2021 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 Spinal stenosis, lumbar region, without neurogenic claudication 03/27/2015 Suicidal ideation 03/03/2022 Tobacco use disorder 04/11/2007 Vascular occlusion 01/07/2022 Intraoperative L common iliac artery occlusion PAST SURGICAL HISTORY Procedure Laterality Date ARTHROSCOPIC REMOVAL HARDWARE DEEP 05/17/2022 removal of iliac screws ESOPHAGOGASTRODUODENOSCOPY TRANSORAL DIAGNOSTIC 09/14/2011 EGD ILIAC REVASC ADD-ON Left 01/07/2022 L Common Iliac Artery endarterectomy LUMBAR SPINE FUSION COMBINED 02/23/2022 L2 to ilium instrumented fusion, L3, 4 and 5 laminectomy, L2-3, 3-4 and L5-S1 transforaminal lumbar interbody fusion. LUMBAR SPINE FUSION,ANTER APPRCH 01/07/2022 ALIF L4-L5. ORTHOPEDICS SURGERY HX 08/23/2023 L2-S1 implant removal AND change PAST SURGICAL HISTORY OF 04/29/2012 excision of back lump SIGMOIDOSCOPY FLX DX W/COLLJ SPEC BR/WA IF PFRMD 09/14/2011 Sigmoidoscopy, flexible Current Outpatient Medications on File Prior to Visit Medication Sig spironolactone (ALDACTONE) 50 mg tablet Take 1 tablet by mouth two times a day. methocarbamol (ROBAXIN) 750 mg tablet Take 1 tablet by mouth three times a day as needed. lactobacillus rhamnosus (CULTURELLE) 10 billion cell capsule Take 1 capsule by mouth once daily. ibuprofen (MOTRIN ORAL) Take 600 mg by mouth three times a day. albuterol HFA (PROVENTIL HFA, VENTOLIN (more content not included)... [facility] 10-25-2024 History of Present illness Narrative Radiology Service Progress Note PATIENT NAME: Elsy Dinero DATE OF SERVICE: October 25, 2024 TIME: 2:54 PM PATIENT IDENTITY VERIFICATION COMPLETED USING TWO (2) IDENTIFIERS: Name and Date of confirmed by patient verbally. FALL SCREENING: Has the patient had 2 falls in the last year or 1 fall with injury or currently using an Ambulatory Assistive Device (Walker, Cane, Wheelchair, Crutches, etc.)? No PATIENT GENDER DATA: Assigned female at . status: : No status: NO. PATIENT RELEVANT IMPLANT DATA REVIEWED: Yes PATIENT PRESENTS WITH AN IMPLANTABLE OR ATTACHED MAGAZINE WRITER: No RADIOLOGY DEPARTMENT: CT; Exam(s) Completed: Spine PERIPHERAL IV DATA: Not applicable SIGNED BY: RT Shahbaz(Ad) October 25, 2024 2:54 PM documented in this encounter [facility] 10-25-2024 Note HNO ID: [id number] Author: CLARE HUNTER RT(Ad) Service: ? Author Type: Finishing And Shipping Supervisor Type: Progress Notes Filed: 10/25/2024 14:54 Note Text: Radiology Service Progress Note PATIENT NAME: Elsy Dinero DATE OF SERVICE: October 25, 2024 TIME: 2:54 PM PATIENT IDENTITY VERIFICATION COMPLETED USING TWO (2) IDENTIFIERS: Name and Date of confirmed by patient verbally. FALL SCREENING: Has the patient had 2 falls in the last year or 1 fall with injury or currently using an Ambulatory Assistive Device (Walker, Cane, Wheelchair, Crutches, etc.)? No PATIENT GENDER DATA: Assigned female at . status: : No status: NO. PATIENT RELEVANT IMPLANT DATA REVIEWED: Yes PATIENT PRESENTS WITH AN IMPLANTABLE OR ATTACHED MAGAZINE WRITER: No RADIOLOGY DEPARTMENT: CT; Exam(s) Completed: Spine PERIPHERAL IV DATA: Not applicable SIGNED BY: RT Shahbaz(R) October 25, 2024 2:[address] [facility] 10-17-2024 Telephone encounter Note Patient notified. Provided with phone number for scheduling. [facility] 10-17-2024 Miscellaneous Notes Patient notified. Provided with phone number for scheduling. ----- Message from Praveen Lujan sent at 10/17/2024 8:41 AM EDT ----- Regarding: RE: Confidential // Denial: PtIlene Dinero // Referral [id number] Good afternoon, This has been approved. Valid dates 09/13/2024 to 11/12/2024. Auth# [id number]. Thank you, ----- Message ----- From: Stanley Deluca RN Sent: 10/16/2024 12:17 PM EDT To: Diego Villatoro; Ambrose Birch MD; # Subject: RE: Confidential // Denial: PtIlene Garcia# Il. Is there an update on this? Peer to peer was completed and additional information was sent on 09/13/24. Thank you. ----- Message ----- From: Praveen Chun Sent: 09/16/2024 11:39 AM EDT To: Diego Villatoro; Tamir Everett; # Subject: RE: Confidential // Denial: PtIlene Garcia# Good morning, You can call [phone] opt 2 (enter tracking# [id number]) / opt 1 to explain this to the insurance. Please let me know how you will proceed. Thank you, Praveen Lujan ----- Message ----- From: Ambrose Birch MD Sent: 09/16/2024 11:25 AM EST To: Villatoro; Tamir Everett; # Subject: RE: Confidential // Denial: Pt. Elsy Garcia# This is absurd. CT is used for many reasons other than that a patient cannot have an MRI. CT is better to assess the fusion and it is the test this patient needs. ----- Message ----- From: Praveen Chun Sent: 09/16/2024 9:37 AM EST To: Diego Everett; # Subject: Confidential // Denial: Pt. Elsy Hunt# Good morning, The below information is for a peer to peer and appeal for a service you have requested. Patient Information Patient Last NameRadakovic Patient First NameLori Date of Birth1970 [id number] Clinical Clearance / Financial Clearance StatusCCN Denied (Patient advised to postpone/reschedule) Clinical Clearance Notifications are supported by our paco policy and used when an immediate payer source is not available. The CCN process can allow cases to be completed while still working to obtain payer's authorization due to urgency or medical necessity. This process should not preclude us from completing the steps needed to secure authorization such us P2P and appeal as this will still allow us to receive the appropriate reimbursement. Denial Overview Denial TypePayer Clinical Guidelines Not Met Denial RationaleA person might need a(n) Lumbar Spine CT if these notes have/has been given: notes from your doctor that say why you cannot do a different test (MRI (Magnetic Resonance Imaging)). That test does not use x-rays. The information we got did not include these notes. Date of Omkdupb4509/20/2024 Is Peer to Peer Available? (Instructions below)Yes Peer to Peer DeadlineMust be completed by: 09/19/2024 Appeal Deadline (Instructions below)60 calendars days from denial date on: 09/13/2024 Insurance Case Information Insurance NameC[employer]ource/Evolent Patient's Insurance Case#[id number] Ordering ProviderAMBROSE BIRCH Approved Services N/A Denied Services [id number] LUMBAR SPINE WO IVCON Alternative RecommendationN/A #Service which can be approved in place of denied service. Clinical Documentation ProvidedOFFICE NOTES: AMPS 09/02/24, 06/03/24, 12/04/23, 08/18/23, PT 09/18/23, 09/12/23, 09/05/23, 09/01/23, 08/29/23, MCDANIEL 09/07/23, TEL 08/29/24, SURGERY 08/23/23, VALASQUEZ 08/14/23 IMAGING: XR 11/27/23, 08/28/23, 08/23/23, MRI 04/26/23, CT 02/27/23, 08/02/22, EXT DO Peer to Peer Instructions Peer to Peer opt 2 (enter tracking#) / opt 1 Does Peer to Peer need to be scheduled?No Who can complete the Peer to Peer?Dr, PA, HYPERION ESSBASE DEVELOPER, LN Additional Peer to Peer InstructionsYou can call for the peer to peer at the date and time of your convenience Appeal Instructions Appeal AddressN/A Appeal Required Form(s)Provider and member's consent forms are required for appeal submission. Please see attached or see links to get the forms below: Provider form: [email or web address]/documents/i w-gze-sdqfncud-[email or web address]-nnirbp-al rm/ Member form: [email or web address].[employer]/documents/p bmyvdhb-zeypvhu-cd-pntu-obybgm-vl-memb vkr-ioiead-dkkd-[email or web address]/ Additional Appeal InstructionsSend it attention to: Appeals department and include: coversheet with patient's and case information, a formal appeal letter and attach any pertinent supporting clinical documentation. Also, provider and member's consent forms are required for appeal submission. [facility] [id number] Tax ID#[id number] Thank you for the attention, Praveen Lujan documented in this encounter [facility] 10-17-2024 Telephone encounter Note ----- Message from Praveen Lujan sent at 10/17/2024 8:41 AM EDT ----- Regarding: RE: Confidential // Denial: PtIlene Hunt // Referral [id number] Good afternoon, This has been approved. Valid dates 09/13/2024 to 11/12/2024. Auth# [id number]. Thank you, ----- Message ----- From: Stanley Deulca RN Sent: 10/16/2024 12:17 PM EDT To: Diego Villatoro; Ambrose Birch MD; # Subject: RE: Confidential // Denial: PtIlene Garcia# Hi. Is there an update on this? Peer to peer was completed and additional information was sent on 09/13/24. Thank you. ----- Message ----- From: Praveen Chun Sent: 09/16/2024 11:39 AM EDT To: Diego Villatoro; Tamir Everett; # Subject: RE: Confidential // Denial: Pt. Elsy Garcia# Good morning, You can call [phone] opt 2 (enter tracking# [id number]) / opt 1 to explain this to the insurance. Please let me know how you will proceed. Thank you, Praveen Lujan ----- Message ----- From: Ambrose Birch MD Sent: 09/16/2024 11:25 AM EST To: Diego Villatoro; Tamir Everett; # Subject: RE: Confidential // Denial: PtIlene Garcia# This is absurd. CT is used for many reasons other than that a patient cannot have an MRI. CT is better to assess the fusion and it is the test this patient needs. ----- Message ----- From: Praveen Chun Sent: 09/16/2024 9:37 AM EST To: Villatoro; Tamir Everett; # Subject: Confidential // Denial: Pt. Elsy Hunt# Good morning, The below information is for a peer to peer and appeal for a service you have requested. Patient Information Patient Last NameRadcarlita Patient First NameLori Date of Birth1970 [id number] Clinical Clearance / Financial Clearance StatusCCN Denied (Patient advised to postpone/reschedule) Clinical Clearance Notifications are supported by our paco policy and used when an immediate payer source is not available. The CCN process can allow cases to be completed while still working to obtain payer's authorization due to urgency or medical necessity. This process should not preclude us from completing the steps needed to secure authorization such us P2P and appeal as this will still allow us to receive the appropriate reimbursement. Denial Overview Denial TypePayer Clinical Guidelines Not Met Denial RationaleA person might need a(n) Lumbar Spine CT if these notes have/has been given: notes from your doctor that say why you cannot do a different test (MRI (Magnetic Resonance Imaging)). That test does not use x-rays. The information we got did not include these notes. Date of Qeaossi9109/20/2024 Is Peer to Peer Available? (Instructions below)Yes Peer to Peer DeadlineMust be completed by: 09/19/2024 Appeal Deadline (Instructions below)60 calendars days from denial date on: 09/13/2024 Insurance Case Information Insurance NameC[employer]ource/Evolent Patient's Insurance Case#[id number] Ordering ProviderAMBROSE BIRCH Approved Services N/A Denied Services [id number] LUMBAR SPINE WO IVCON Alternative RecommendationN/A #Service which can be approved in place of denied service. Clinical Documentation ProvidedOFFICE NOTES: AMPS 09/02/24, 06/03/24, 12/04/23, 08/18/23, PT 09/18/23, 09/12/23, 09/05/23, 09/01/23, 08/29/23, MCDANIEL 09/07/23, TEL 08/29/24, SURGERY 08/23/23, VALASQUEZ 08/14/23 IMAGING: XR 11/27/23, 08/28/23, 08/23/23, MRI 04/26/23, CT 02/27/23, 08/02/22, EXT DO Peer to Peer Instructions Peer to Peer opt 2 (enter tracking#) / opt 1 Does Peer to Peer need to be scheduled?No Who can complete the Peer to Peer?Dr, PA, HYPERION ESSBASE DEVELOPER, LN Additional Peer to Peer InstructionsYou can call for the peer to peer at the date and time of your convenience Appeal Instructions Appeal AddressN/A Appeal Required Form(s)Provider and member's consent forms are required for appeal submission. Please see attached or see links to get the forms below: Provider form: [email or web address].[employer]/documents/i c-wbh-xihyfqxt-wsbbqighaelff-gdheuv-qo rm/ Member form: [email or web address]://www.[employer]/documents/p zxwfwkh-pdidkca-ld-cuua-dxcuse-zd-memb ras-uxiznx-sfpa-cs-[email or web address]/ Additional Appeal InstructionsSend it attention to: Appeals department and include: coversheet with patient's and case information, a formal appeal letter and attach any pertinent supporting clinical documentation. Also, provider and member's consent forms are required for appeal submission. [facility] [id number] Tax ID#[id number] Thank you for the attention, Praveen Lujan T [facility] 09-30-2024 History of Present illness Narrative Radiology Service Progress Note PATIENT NAME: Elsy Dinero DATE OF SERVICE: September 30, 2024 TIME: 9:23 AM PATIENT IDENTITY VERIFICATION COMPLETED USING TWO (2) IDENTIFIERS: Name and Date of confirmed by patient verbally. FALL SCREENING: Has the patient had 2 falls in the last year or 1 fall with injury or currently using an Ambulatory Assistive Device (Walker, Cane, Wheelchair, Crutches, etc.)? No PATIENT GENDER DATA: Assigned female at . status: : No status: NO. PATIENT RELEVANT IMPLANT DATA REVIEWED: Yes PATIENT PRESENTS WITH AN IMPLANTABLE OR ATTACHED MAGAZINE WRITER: No RADIOLOGY DEPARTMENT: General X-ray: Exam(s) Completed: Chest X-Ray PERIPHERAL IV DATA: Not applicable SIGNED BY: RT Erica(Ad) September 30, 2024 9:23 AM documented in this encounter [facility] 09-30-2024 Note HNO ID: [id number] Author: DUSTIN RODRIGUEZ RT(R) Service: ? Author Type: Finishing And Shipping Supervisor Type: Progress Notes Filed: 09/30/2024 09:29 Note Text: Radiology Service Progress Note PATIENT NAME: Elsy Dinero DATE OF SERVICE: September 30, 2024 TIME: 9:23 AM PATIENT IDENTITY VERIFICATION COMPLETED USING TWO (2) IDENTIFIERS: Name and Date of confirmed by patient verbally. FALL SCREENING: Has the patient had 2 falls in the last year or 1 fall with injury or currently using an Ambulatory Assistive Device (Walker, Cane, Wheelchair, Crutches, etc.)? No PATIENT GENDER DATA: Assigned female at . status: : No status: NO. PATIENT RELEVANT IMPLANT DATA REVIEWED: Yes PATIENT PRESENTS WITH AN IMPLANTABLE OR ATTACHED MAGAZINE WRITER: No RADIOLOGY DEPARTMENT: General X-ray: Exam(s) Completed: Chest X-Ray PERIPHERAL IV DATA: Not applicable SIGNED BY: LEANN Maldonado) September 30, 2024 9:[address] [facility] 09-30-2024 Note HNO ID: [id number] Author: WENDY STONE APRN.[employer]ILDER Service: ? Author Type: Nurse Practitioner Type: Progress Notes Filed: 09/30/2024 09:47 Note Text: CC: Patient presents with: Cough: Cough, sinus and congestion x 1 month HPI: Elsy Dinero is a 54 year old female who presents to the office with complaint of head congestion and cough, nonproductive for a month. Symptoms are staying the same. Associated symptoms includes nasal congestion and facial pain/pressure. Denies wheezing, dyspnea, nausea, vomiting , and diarrhea. Treatments tried include nothing so far. with no relief of symptoms. Sick contacts: unknown. History of asthma, frequent episodes of bronchitis, chronic bronchitis, bronchiectasis or COPD: No Smoker: No Seasonal/environmental allergies: No The ROS is otherwise negative. The patient's pmh, medications, allergies, and past visits are reviewed. PHYSICAL EXAM: BP 110/72 Pulse (!) 58 Temp 36.1 ?C (97 ?F) (Tympanic) Resp 18 Wt 73.2 kg (161 lb 6 oz) LMP 03/02/2015 SpO2 100% BMI 27.05 kg/m? General appearance: alert, cooperative, pleasant, in no acute distress Head: Normocephalic Eyes: EOM's intact, conjunctiva pink and moist, no icterus, sclera white, non-injected Ears: Right ear: External ear/canal- Normal, TM - clear with good landmarks. Left ear: External ear/canal- Normal, TM - clear with good landmarks Oropharynx:moist without lesions, No erythema, exudates or tonsillar hypertrophy. Heart: Negative. RRR without obvious murmur, gallop, or rubs. No ectopy. Lungs: clear to auscultation, without rales or wheeze, good air exchange PAST MEDICAL HISTORY Diagnosis Date Acid reflux Acute gastritis without mention of hemorrhage 09/14/2011 Allergy-induced asthma, mild intermittent, uncomplicated Asthma Chronic midline low back pain without sciatica 05/17/2016 Duodenitis 09/14/2011 Duodenitis without mention of hemorrhage Facet arthropathy, lumbar 05/17/2016 Hemorrhage of gastrointestinal tract, unspecified Hirsutism 09/16/2019 Pure hypercholesterolemia 06/28/2021 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 Spinal stenosis, lumbar region, without neurogenic claudication 03/27/2015 Suicidal ideation 03/03/2022 Tobacco use disorder 04/11/2007 Vascular occlusion 01/07/2022 Intraoperative L common iliac artery occlusion PAST SURGICAL HISTORY Procedure Laterality Date ARTHROSCOPIC REMOVAL HARDWARE DEEP 05/17/2022 removal of iliac screws ESOPHAGOGASTRODUODENOSCOPY TRANSORAL DIAGNOSTIC 09/14/2011 EGD ILIAC REVASC ADD-ON Left 01/07/2022 L Common Iliac Artery endarterectomy LUMBAR SPINE FUSION COMBINED 02/23/2022 L2 to ilium instrumented fusion, L3, 4 and 5 laminectomy, L2-3, 3-4 and L5-S1 transforaminal lumbar interbody fusion. LUMBAR SPINE FUSION,ANTER APPRCH 01/07/2022 ALIF L4-L5. ORTHOPEDICS SURGERY HX 08/23/2023 L2-S1 implant removal AND change PAST SURGICAL HISTORY OF 04/29/2012 excision of back lump SIGMOIDOSCOPY FLX DX W/COLLJ SPEC BR/WA IF PFRMD 09/14/2011 Sigmoidoscopy, flexible ALLERGIES Gabapentin, Prednisone, Cats, Ciprofloxacin, Dogs, Grass Pollen, Niacin, Pollen, and Trees MEDICATIONS spironolactone (ALDACTONE) 50 mg tablet Take 1 tablet by mouth two times a day. methocarbamol (ROBAXIN) 750 mg tablet Take 1 tablet by mouth three times a day as needed. lactobacillus rhamnosus (CULTURELLE) 10 billion cell capsule Take 1 capsule by mouth once daily. ibuprofen (MOTRIN ORAL) Take 600 mg by mouth three times a day. albuterol HFA (PROVENTIL HFA, VENTOLIN HFA) 90 mcg/actuation inhaler Inhale 2 Puffs as instructed every 4 hours as needed for wheezing/shortness of breath. docusate sodium (COLACE) 100 mg capsule Take 1 capsule by mouth two times a day. sennosides (SENNACON ORAL) Take 1 tablet by mouth once daily. triamcinolone acetonide (NASACORT AQ NASAL) Use 1 [place] in the nose as needed (allergies). fexofenadine (STANLEY) 180 mg tablet Take 180 mg by mouth once daily. famotidine (PEPCID) 20 mg tablet Take 20 mg by mouth two times a day. FAMILY HISTORY Problem Relation Age of Onset GI Mother colon polyps Cancer Mother Lung/Uterine/ cervical Allergies Mother Osteoporosis Mother GI Father colon polyps Diabetes Father Coronary Artery Disease Father Stents Heart Father age 85 Dementia Father No Known Problems Sister No Known Problems Sister Diabetes Brother Kidney Disease Brother dialysis Heart Failure Brother Breast Cancer Maternal Grandmother Allergies Maternal Grandfather Breast Cancer Paternal Grandmother Allergies Paternal Grandmother Diabetes Paternal Grandfather Allergies Daughter Heart Daughter PDA closure Allergies Daughter Anesthesia Problems No Family History Anesthesia No Family History Social History Tobacco Use Smoking status: Every Day Current packs/day: 1.00 Average packs/day: 2.0 packs/day for 39.1 years (77.1 ttl pk-y (more content not included)... [facility] 09-30-2024 History of Present illness Narrative CC: Patient presents with: Cough: Cough, sinus and congestion x 1 month HPI: Elsy Dinero is a 54 year old female who presents to the office with complaint of head congestion and cough, nonproductive for a month. Symptoms are staying the same. Associated symptoms includes nasal congestion and facial pain/pressure. Denies wheezing, dyspnea, nausea, vomiting , and diarrhea. Treatments tried include nothing so far. with no relief of symptoms. Sick contacts: unknown. History of asthma, frequent episodes of bronchitis, chronic bronchitis, bronchiectasis or COPD: No Smoker: No Seasonal/environmental allergies: No The ROS is otherwise negative. The patient's pmh, medications, allergies, and past visits are reviewed. PHYSICAL EXAM: BP 110/72 Pulse (!) 58 Temp 36.1 C (97 F) (Tympanic) Resp 18 Wt 73.2 kg (161 lb 6 oz) LMP 03/02/2015 SpO2 100% BMI 27.05 kg/m General appearance: alert, cooperative, pleasant, in no acute distress Head: Normocephalic Eyes: EOM's intact, conjunctiva pink and moist, no icterus, sclera white, non-injected Ears: Right ear: External ear/canal- Normal, TM - clear with good landmarks. Left ear: External ear/canal- Normal, TM - clear with good landmarks Oropharynx:moist without lesions, No erythema, exudates or tonsillar hypertrophy. Heart: Negative. RRR without obvious murmur, gallop, or rubs. No ectopy. Lungs: clear to auscultation, without rales or wheeze, good air exchange PAST MEDICAL HISTORY Diagnosis Date Acid reflux Acute gastritis without mention of hemorrhage 09/14/2011 Allergy-induced asthma, mild intermittent, uncomplicated Asthma Chronic midline low back pain without sciatica 05/17/2016 Duodenitis 09/14/2011 Duodenitis without mention of hemorrhage Facet arthropathy, lumbar 05/17/2016 Hemorrhage of gastrointestinal tract, unspecified Hirsutism 09/16/2019 Pure hypercholesterolemia 06/28/2021 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 Spinal stenosis, lumbar region, without neurogenic claudication 03/27/2015 Suicidal ideation 03/03/2022 Tobacco use disorder 04/11/2007 Vascular occlusion 01/07/2022 Intraoperative L common iliac artery occlusion PAST SURGICAL HISTORY Procedure Laterality Date ARTHROSCOPIC REMOVAL HARDWARE DEEP 05/17/2022 removal of iliac screws ESOPHAGOGASTRODUODENOSCOPY TRANSORAL DIAGNOSTIC 09/14/2011 EGD ILIAC REVASC ADD-ON Left 01/07/2022 L Common Iliac Artery endarterectomy LUMBAR SPINE FUSION COMBINED 02/23/2022 L2 to ilium instrumented fusion, L3, 4 and 5 laminectomy, L2-3, 3-4 and L5-S1 transforaminal lumbar interbody fusion. LUMBAR SPINE FUSION,ANTER APPRCH 01/07/2022 ALIF L4-L5. ORTHOPEDICS SURGERY HX 08/23/2023 L2-S1 implant removal & change PAST SURGICAL HISTORY OF 04/29/2012 excision of back lump SIGMOIDOSCOPY FLX DX W/COLLJ SPEC BR/WA IF PFRMD 09/14/2011 Sigmoidoscopy, flexible ALLERGIES Gabapentin, Prednisone, Cats, Ciprofloxacin, Dogs, Grass Pollen, Niacin, Pollen, and Trees MEDICATIONS spironolactone (ALDACTONE) 50 mg tablet Take 1 tablet by mouth two times a day. methocarbamol (ROBAXIN) 750 mg tablet Take 1 tablet by mouth three times a day as needed. lactobacillus rhamnosus (CULTURELLE) 10 billion cell capsule Take 1 capsule by mouth once daily. ibuprofen (MOTRIN ORAL) Take 600 mg by mouth three times a day. albuterol HFA (PROVENTIL HFA, VENTOLIN HFA) 90 mcg/actuation inhaler Inhale 2 Puffs as instructed every 4 hours as needed for wheezing/shortness of breath. docusate sodium (COLACE) 100 mg capsule Take 1 capsule by mouth two times a day. sennosides (SENNACON ORAL) Take 1 tablet by mouth once daily. triamcinolone acetonide (NASACORT AQ NASAL) Use 1 [place] in the nose as needed (allergies). fexofenadine (STANLEY) 180 mg tablet Take 180 mg by mouth once daily. famotidine (PEPCID) 20 mg tablet Take 20 mg by mouth two times a day. FAMILY HISTORY Problem Relation Age of Onset GI Mother colon polyps Cancer Mother Lung/Uterine/ cervical Allergies Mother Osteoporosis Mother GI Father colon polyps Diabetes Father Coronary Artery Disease Father Stents Heart Father age 85 Dementia Father No Known Problems Sister No Known Problems Sister Diabetes Brother Kidney Disease Brother dialysis Heart Failure Brother Breast Cancer Maternal Grandmother Allergies Maternal Grandfather Breast Cancer Paternal Grandmother Allergies Paternal Grandmother Diabetes Paternal Grandfather Allergies Daughter Heart Daughter PDA closure Allergies Daughter Anesthesia Problems No Family History Anesthesia No Family History Social History Tobacco Use Smoking status: Every Day Current packs/day: 1.00 Average packs/day: 2.0 packs/day for 39.1 years (77.1 ttl pk-yrs) Types: Cigarettes Start date: 07/10/1985 Last attempt to quit: 07/10/2023 Passive exposure: Current Smokeless tobacco: Never Tobacco comments: started age 13 Vaping Use Vaping status: Never Used Substance Use Topics Alcohol use: Not Currently Comment: recovering since 2016 Drug use: Not Currently Comment: experimented in her 20's ASSESSMENT/PLAN: 1. Acute cough - ICD9: 786.2, ICD10: R05.1 (primary diagnosis) - XR CHEST 2V FRONTAL/LAT * * * * Physician Interpretation * * * * EXAMINATION: CHEST RADIOGRAPH (2 VIEW FRONTAL & LATERAL) CLINICAL HISTORY: Acute cough MQ: [id number] EXAM DATE/TIME: 09/30/2024 9:30 AM COMPARISON: Chest x-ray dated 05/30/2023 RESULT: Lines, tubes, and devices: None. Lungs and pleura: No consolidation. No lung mass. No pleural effusion. No pneumothorax. Cardiomediastinal silhouette: Stable cardiomediastinal silhouette. Bones and soft tissues: No acute abnormality. IMPRESSION IMPRESSION: No acute radiographic abnormality. Primary Therapist: SARAHI Transcribe Date/Time: Sep 30 2024 9:31A Dictated by : RICKIE EDMONDS MD 2. Rhinosinusitis - ICD9: 473.9, ICD10: J32.9 DOXYCYCLINE HYCLATE 100 MG TABLET Prescription instructions reviewed with patient as applicable. Potential red flag symptoms discussed with the patient. Reviewed appropriate action plan to take if red flag symptoms occur. Patient agreeable to treatment plan. Wendy Stone APRN.[place] documented in this encounter [facility] 09-18-2024 Telephone encounter Note Received notification that scheduled CT scan on 09/20/24 had and pt needs new order. [facility] 09-18-2024 Miscellaneous Notes Received notification that scheduled CT scan on 09/20/24 had and pt needs new order. documented in this encounter [facility] 09-16-2024 Note HNO ID: [id number] Author: BECKY SUN PA-C Service: ? Author Type: Physician [employer] Type: Progress Notes Filed: 09/16/2024 12:44 Note Text: NEUROSURGERY UPDATE CT lumbar spine ordered to assess bony fusion and surgical planning. CT is more effective than MRI for determining this. Becky Sun PA-C September 16, 2024 12:[address] [facility] 09-06-2024 Telephone encounter Note Form completed and faxed with confirmation of receipt. [place]. [facility] 09-06-2024 Miscellaneous Notes Form completed and faxed with confirmation of receipt. [place]. Forms printed for review. [place] initial evaluation scanned to epic documented in this encounter [facility] 09-06-2024 Telephone encounter Note Forms printed for review. [facility] 09-05-2024 Telephone encounter Note [place] initial evaluation scanned to epic [facility] 09-02-2024 Telephone encounter Note I have not changed anything on the prescription and she does not have a follow up with us. So she can send these refill requests to her PCP going forward. On the day of visit, I refilled per her request which had the amount of medication on the prescription [facility] 09-02-2024 Miscellaneous Notes I have not changed anything on the prescription and she does not have a follow up with us. So she can send these refill requests to her PCP going forward. On the day of visit, I refilled per her request which had the amount of medication on the prescription Phoned patient as there is 11 refills on the prescription. Discussed with patient information on bottle may be from an older prescription. She has several prescriptions from multiple providers in a short amount of time. Patient will call pharmacy and let us know if she needs something. Sravanthi Holguin MA documented in this encounter [facility] 09-02-2024 History of Present illness Narrative SPINE SURGERY ESTABLISHED This is an in-person visit. DATE OF SERVICE: 09/02/2024 DATE OF LAST VISIT: 06/03/2024 SURGERY DATE: 08/23/2023 SUBJECTIVE: HPI:Elsy Dinero is a 54 year old female presenting alone. At [facility], the patient reported that she has shown great improvement after her surgery. As of now, she was undergoing physical therapy 5-6 days a week to build her strength back. She is able to lift weights and walk for about a mile before feeling pain in he back and feet. She states she needs to frequently stretch her muscles while walking in order to keep ambulating. She is able to stand up straight on her own at this time. Today, the patient reports that, while she is building her strength in her back, she has reported experiencing frequent spasms, feeling the sensation radiate into her legs and feet. She has finished her treatment at physical therapy, and while she is able to lift and do more with her strength renewed, she is still not completely better. She was previously taking gabapentin for her back pain, but has since stopped. PAIN EVALUATION 09/02/2024 0946 Pain Level: 8 Pain Location: Back-Lower Description: Spasm;Radiating Duration Units: Unknown Frequency: Intermittent Intervention/Comfort measure: Medication;Reposition;Relaxation Pain Radiation: Low back and bilateral leg pain Aggravating Factors: Standing, Walking Alleviating Factors: Sitting AMBULATORY STATUS: Impaired Community Distances ANTIPLATELET OR ANTICOAGULATION STATUS: No PREVIOUS CONSERVATIVE TREATMENTS: Ibuprofen, Robaxin REVIEW OF SYSTEMS: GENERAL: No weight loss or malaise MUSCULOSKELETAL: SEE HPI NEURO: No history of syncope, paralysis, seizures or tremors MEDICATIONS: doxycycline (VIBRA-TABS) 100 mg tablet Take 1 tablet by mouth two times a day for 10 days. methocarbamol (ROBAXIN) 750 mg tablet Take 1 tablet by mouth three times a day as needed. lactobacillus rhamnosus (CULTURELLE) 10 billion cell capsule Take 1 capsule by mouth once daily. spironolactone (ALDACTONE) 50 mg tablet Take 1 tablet by mouth two times a day. ibuprofen (MOTRIN ORAL) Take 600 mg by mouth three times a day. albuterol HFA (PROVENTIL HFA, VENTOLIN HFA) 90 mcg/actuation inhaler Inhale 2 Puffs as instructed every 4 hours as needed for wheezing/shortness of breath. docusate sodium (COLACE) 100 mg capsule Take 1 capsule by mouth two times a day. sennosides (SENNACON ORAL) Take 1 tablet by mouth once daily. triamcinolone acetonide (NASACORT AQ NASAL) Use 1 [place] in the nose as needed (allergies). fexofenadine (STANLEY) 180 mg tablet Take 180 mg by mouth once daily. famotidine (PEPCID) 20 mg tablet Take 20 mg by mouth two times a day. Patient Entered Questionnaires 04/27/2021 06/10/2021 12/20/2021 Spine Questions Pain Location: Lower back Lower back Lower back Pain Duration: More than 5 years Symptoms from neck/cervical spine: No No No Employment Status: Working now Involved in law suit/legal claim: No 04/27/2021 Spine Red Flags Any type of cancer: No Unexplained fever: No Bowel or bladder disfunction: Yes Unintentional weight loss: No Osteoporosis: No PROMIS Score Percentiles 04/27/2021 06/10/2021 12/20/2021 Physical Health Physical Function Percentile 3 2 2 Sleep Percentile 4 4 21* Fatigue Percentile 14 1 4 Pain Interference Percentile 1 1 4 04/27/2021 06/10/2021 12/20/2021 PROMIS SOCIAL ROLE SCORE Social Role Satisfaction Percentile 10 8 18* 05/17/2016 04/27/2021 12/20/2021 PROMIS Global Health Scale Physical Health Percentile 7 4 2 Mental Health Percentile 26* 43 13 Percentiles provide an indication of how the patient's score ranks in relation to the general population. Higher percentile rankings indicate better function/quality of life. 50th percentile is the average of the general population and indicates half of respondents had a worse score. Depression Screenin04/27/2021 06/10/2021 12/20/2021 PHQ-9 Score 9 10 10 04/27/2021 06/10/2021 12/20/2021 PHQ-9 Self-harm Question Question 9 Not at all Not at all Not at all PHQ-9 Self-Harm (Item 9) response options: 0 Not at all 1 Several days 2 More than half the days 3 Nearly every day PHQ-9 Levels: 0-4 No to mild depression 5-9 Mild depression 10-14 Moderate depression 15-19 Moderately severe depression 20-27 Severe depression OBJECTIVE: PHYSICAL EXAM: Wt 158 lb 15.2 oz (72.1kg) LMP 03/02/2015 GENERAL APPEARANCE: Well nourished, well developed, and no apparent distress. NEURO PSYCH: Patient oriented to person, place, and time. Mood pleasant. Benign affect. 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 SENSORY: Normal sensory exam GAIT: Normal. REFLEXES: +2 to bilateral U/L extremities. STRAIGHT LEG TEST: Normal Good sagittal balance. NEURO TESTS: None DATA REVIEW: No additional images reviewed today Medical Decision Making: Problems: Moderate: 1+ chronic illnesses with change Risk: Moderate: Moderate risk from testing/treatment Medical Decision Making Level: 4 - Moderate ASSESSMENT/PLAN (M48.062) Spinal stenosis of lumbar region with neurogenic claudication (primary encounter diagnosis) Low back pain Elsy Dinero will continue with medical management of her condition. Imaging: Lumbar CT Without Contrast Symptoms of neuro deficit or red flag symptoms listed in HPI Consults: Physical Therapy Follow up: Four weeks, patient may follow up virtually or in person, advised to call if symptoms worsen. I spent a total of 13 minutes on the date of the service which included preparing to see the patient, [id number] patient care, completing clinical documentation, obtaining and/or reviewing separately obtained history, performing a medically appropriate examination, and counseling and educating the patient/family/caregiver. Scribe Attestation: By signing my name below, IIrineo, attest that this documentation has been prepared under the direction and in the presence of Dr. Ambrose Birch.Electronically Signed: Ana Maria Arreguin. September 02, 2024. Provider Attestation: Ambrose Thakkar MD, personally performed the services described in this documentation. All medical record entries made by the scribe were at my direction and in my presence. I have reviewed the chart and discharge instructions (if applicable) and agree that the record reflects my personal performance and is accurate and complete. I spent a total of 13 minutes on the date of the service which included preparing to see the patient, [id number] patient care, completing clinical documentation, performing a medically appropriate examination, counseling and educating the patient/family/caregiver, and ordering medications, tests, or procedures Electronically Signed: Ambrose Birch MD September 02, 2024 12:37 PM SIGNATURE: Ambrose Birch MD PATIENT NAME: Elsy Dinero DATE: September 02, 2024 TIME: 10:13 AM PAGER: documented in this encounter [facility] 09-02-2024 Note HNO ID: [id number] Author: AMBROSE BIRCH MD Service: ? Author Type: Physician Type: Progress Notes Filed: 09/02/2024 12:37 Note Text: SPINE SURGERY ESTABLISHED This is an in-person visit. DATE OF SERVICE: 09/02/2024 DATE OF LAST VISIT: 06/03/2024 SURGERY DATE: 08/23/2023 SUBJECTIVE: HPI:Elsy Dinero is a 54 year old female presenting alone. At [facility], the patient reported that she has shown great improvement after her surgery. As of now, she was undergoing physical therapy 5-6 days a week to build her strength back. She is able to lift weights and walk for about a mile before feeling pain in he back and feet. She states she needs to frequently stretch her muscles while walking in order to keep ambulating. She is able to stand up straight on her own at this time. Today, the patient reports that, while she is building her strength in her back, she has reported experiencing frequent spasms, feeling the sensation radiate into her legs and feet. She has finished her treatment at physical therapy, and while she is able to lift and do more with her strength renewed, she is still not completely better. She was previously taking gabapentin for her back pain, but has since stopped. PAIN EVALUATION 09/02/2024 0946 Pain Level: 8 Pain Location: Back-Lower Description: Spasm;Radiating Duration Units: Unknown Frequency: Intermittent Intervention/Comfort measure: Medication;Reposition;Relaxation Pain Radiation: Low back and bilateral leg pain Aggravating Factors: Standing, Walking Alleviating Factors: Sitting AMBULATORY STATUS: Impaired Community Distances ANTIPLATELET OR ANTICOAGULATION STATUS: No PREVIOUS CONSERVATIVE TREATMENTS: Ibuprofen, Robaxin REVIEW OF SYSTEMS: GENERAL: No weight loss or malaise MUSCULOSKELETAL: SEE HPI NEURO: No history of syncope, paralysis, seizures or tremors MEDICATIONS: doxycycline (VIBRA-TABS) 100 mg tablet Take 1 tablet by mouth two times a day for 10 days. methocarbamol (ROBAXIN) 750 mg tablet Take 1 tablet by mouth three times a day as needed. lactobacillus rhamnosus (CULTURELLE) 10 billion cell capsule Take 1 capsule by mouth once daily. spironolactone (ALDACTONE) 50 mg tablet Take 1 tablet by mouth two times a day. ibuprofen (MOTRIN ORAL) Take 600 mg by mouth three times a day. albuterol HFA (PROVENTIL HFA, VENTOLIN HFA) 90 mcg/actuation inhaler Inhale 2 Puffs as instructed every 4 hours as needed for wheezing/shortness of breath. docusate sodium (COLACE) 100 mg capsule Take 1 capsule by mouth two times a day. sennosides (SENNACON ORAL) Take 1 tablet by mouth once daily. triamcinolone acetonide (NASACORT AQ NASAL) Use 1 [place] in the nose as needed (allergies). fexofenadine (STANLEY) 180 mg tablet Take 180 mg by mouth once daily. famotidine (PEPCID) 20 mg tablet Take 20 mg by mouth two times a day. Patient Entered Questionnaires 04/27/2021 06/10/2021 12/20/2021 Spine Questions Pain Location: Lower back Lower back Lower back Pain Duration: More than 5 years Symptoms from neck/cervical spine: No No No Employment Status: Working now Involved in law suit/legal claim: No 04/27/2021 Spine Red Flags Any type of cancer: No Unexplained fever: No Bowel or bladder disfunction: Yes Unintentional weight loss: No Osteoporosis: No PROMIS Score Percentiles 04/27/2021 06/10/2021 12/20/2021 Physical Health Physical Function Percentile 3 2 2 Sleep Percentile 4 4 21* Fatigue Percentile 14 1 4 Pain Interference Percentile 1 1 4 04/27/2021 06/10/2021 12/20/2021 PROMIS SOCIAL ROLE SCORE Social Role Satisfaction Percentile 10 8 18* 05/17/2016 04/27/2021 12/20/2021 PROMIS Global Health Scale Physical Health Percentile 7 4 2 Mental Health Percentile 26* 43 13 Percentiles provide an indication of how the patient's score ranks in relation to the general population. Higher percentile rankings indicate better function/quality of life. 50th percentile is the average of the general population and indicates half of respondents had a worse score. Depression Screenin04/27/2021 06/10/2021 12/20/2021 PHQ-9 Score 9 10 10 04/27/2021 06/10/2021 12/20/2021 PHQ-9 Self-harm Question Question 9 Not at all Not at all Not at all PHQ-9 Self-Harm (Item 9) response options: 0 Not at all 1 Several days 2 More than half the days 3 Nearly every day PHQ-9 Levels: 0-4 No to mild depression 5-9 Mild depression 10-14 Moderate depression 15-19 Moderately severe depression 20-27 Severe depression OBJECTIVE: PHYSICAL EXAM: Wt 158 lb 15.2 oz (72.1kg) LMP 03/02/2015 GENERAL APPEARANCE: Well nourished, well developed, and no apparent distress. NEURO PSYCH: Patient oriented to person, place, and time. Mood pleasant. Benign affect. 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 SENSORY: Normal sensory exam GAIT: Normal. (more content not included)... [facility] 08-30-2024 Note HNO ID: [id number] Author: STEPHANIE ESPINOZA PA-C Service: ? Author Type: Physician [employer] Type: Progress Notes Filed: 08/30/2024 12:43 Note Text: This note was created using [employer]. Subjective Elsy Dinero is a 54 year old female. Patient is a 54-year-old female who arrives for evaluation of increasing redness to skin movement on her left ear that has developed over the past 2 days. Patient states that she participates in swim physical therapy and scratched her left ear several days ago. Patient reports there was significant bleeding at the time of the injury which has since subsided. Patient states she has noted increased redness and pain to the site over the past 2 days. Patient reports no middle ear pain and also denies congestion, sinus pressure or other illness symptoms. Patient has noted no bleeding, serous appearing fluid to the wound site over the past 2 days. Ear Problem Review of Systems HENT: Positive for ear pain. Skin: Positive for wound. Redness To Wound Left Ear All other systems reviewed and are negative. Objective BP 129/58 Pulse 89 Temp 36.7 ?C (98.1 ?F) (Left Tympanic) Resp 16 Wt 71.7 kg (158 lb) LMP 03/02/2015 SpO2 96% BMI 26.48 kg/m? Physical Exam Vitals and nursing note reviewed. Constitutional: Appearance: Normal appearance. She is normal weight. HENT: Head: Normocephalic and atraumatic. Right Ear: Tympanic membrane, ear canal and external ear normal. There is no impacted cerumen. Left Ear: Tympanic membrane and ear canal normal. There is no impacted cerumen. Ears: Comments: There is an approximate 0.5 cm x 0.5 cm superficial skin tear wound to the stem of the antihelix of the left ear. Crusting is noted and there is no active bleeding, serous or purulent fluid. No induration or fluctuance is noted. There is diffuse erythema to the surrounding left auricle. Exam of the left external canal is unremarkable and the patient demonstrates no tenderness with otic exam. Nose: Nose normal. Mouth/Throat: Mouth: Mucous membranes are moist. Pharynx: Oropharynx is clear. Eyes: Extraocular Movements: Extraocular movements intact. Conjunctiva/sclera: Conjunctivae normal. Pupils: Pupils are equal, round, and reactive to light. Cardiovascular: Rate and Rhythm: Normal rate. Pulses: Normal pulses. Pulmonary: Effort: Pulmonary effort is normal. Breath sounds: Normal breath sounds. Musculoskeletal: Cervical back: Normal range of motion and neck supple. Skin: General: Skin is warm and dry. Capillary Refill: Capillary refill takes less than 2 seconds. Neurological: General: No focal deficit present. Mental Status: She is alert and oriented to person, place, and time. Psychiatric: Mood and Affect: Mood normal. Behavior: Behavior normal. Thought Content: Thought content normal. Judgment: Judgment normal. Assessment and Plan Physical exam findings as noted above. Patient was provided with a prescription for doxycycline 100 mg and very clearly instructed to report to an emergency department if she notes any worsening of her symptoms. Patient was advised that if she develops worsening symptoms she will require laboratory testing and IV antibiotics. Patient verbalizes clear understanding of the above instructions. CLINICAL IMPRESSION: Wound Cellulitis Left Ear (Antihelix) ASSESSMENT/PLAN: 1. Wound cellulitis - ICD9: 682.9, ICD10: L03.90 - DOXYCYCLINE HYCLATE 100 MG TABLET Stephanie Espinoza PA-C [facility] 08-30-2024 History of Present illness Narrative This note was created using [employer]. Subjective Elsy Dinero is a 54 year old female. Patient is a 54-year-old female who arrives for evaluation of increasing redness to skin movement on her left ear that has developed over the past 2 days. Patient states that she participates in swim physical therapy and scratched her left ear several days ago. Patient reports there was significant bleeding at the time of the injury which has since subsided. Patient states she has noted increased redness and pain to the site over the past 2 days. Patient reports no middle ear pain and also denies congestion, sinus pressure or other illness symptoms. Patient has noted no bleeding, serous appearing fluid to the wound site over the past 2 days. Ear Problem Review of Systems HENT: Positive for ear pain. Skin: Positive for wound. Redness To Wound Left Ear All other systems reviewed and are negative. Objective BP 129/58 Pulse 89 Temp 36.7 C (98.1 F) (Left Tympanic) Resp 16 Wt 71.7 kg (158 lb) LMP 03/02/2015 SpO2 96% BMI 26.48 kg/m Physical Exam Vitals and nursing note reviewed. Constitutional: Appearance: Normal appearance. She is normal weight. HENT: Head: Normocephalic and atraumatic. Right Ear: Tympanic membrane, ear canal and external ear normal. There is no impacted cerumen. Left Ear: Tympanic membrane and ear canal normal. There is no impacted cerumen. Ears: Comments: There is an approximate 0.5 cm x 0.5 cm superficial skin tear wound to the stem of the antihelix of the left ear. Crusting is noted and there is no active bleeding, serous or purulent fluid. No induration or fluctuance is noted. There is diffuse erythema to the surrounding left auricle. Exam of the left external canal is unremarkable and the patient demonstrates no tenderness with otic exam. Nose: Nose normal. Mouth/Throat: Mouth: Mucous membranes are moist. Pharynx: Oropharynx is clear. Eyes: Extraocular Movements: Extraocular movements intact. Conjunctiva/sclera: Conjunctivae normal. Pupils: Pupils are equal, round, and reactive to light. Cardiovascular: Rate and Rhythm: Normal rate. Pulses: Normal pulses. Pulmonary: Effort: Pulmonary effort is normal. Breath sounds: Normal breath sounds. Musculoskeletal: Cervical back: Normal range of motion and neck supple. Skin: General: Skin is warm and dry. Capillary Refill: Capillary refill takes less than 2 seconds. Neurological: General: No focal deficit present. Mental Status: She is alert and oriented to person, place, and time. Psychiatric: Mood and Affect: Mood normal. Behavior: Behavior normal. Thought Content: Thought content normal. Judgment: Judgment normal. Assessment and Plan Physical exam findings as noted above. Patient was provided with a prescription for doxycycline 100 mg and very clearly instructed to report to an emergency department if she notes any worsening of her symptoms. Patient was advised that if she develops worsening symptoms she will require laboratory testing and IV antibiotics. Patient verbalizes clear understanding of the above instructions. CLINICAL IMPRESSION: Wound Cellulitis Left Ear (Antihelix) ASSESSMENT/PLAN: 1. Wound cellulitis - ICD9: 682.9, ICD10: L03.90 - DOXYCYCLINE HYCLATE 100 MG TABLET Stephanie Espinoza PA-C documented in this encounter [facility] 08-29-2024 Telephone encounter Note Phoned patient as there is 11 refills on the prescription. Discussed with patient information on bottle may be from an older prescription. She has several prescriptions from multiple providers in a short amount of time. Patient will call pharmacy and let us know if she needs something. Sravanthi Holguin MA [facility] 08-29-2024 Telephone encounter Note Call from patient requesting refill. Requested Prescriptions Pending Prescriptions Disp Refills methocarbamol (ROBAXIN) 750 mg tablet 30 tablet 0 Sig: Take 1 tablet by mouth three times a day as needed. Patient last seen 06-03-24 next appt: 09-02-24 Elsy Hill [facility] 08-29-2024 Miscellaneous Notes Call from patient requesting refill. Requested Prescriptions Pending Prescriptions Disp Refills methocarbamol (ROBAXIN) 750 mg tablet 30 tablet 0 Sig: Take 1 tablet by mouth three times a day as needed. Patient last seen 06-03-24 next appt: 09-02-24 Elsy Hill documented in this encounter [facility] 06-06-2024 Note HNO ID: [id number] Author: IZAIAH MEDINA APRN.[employer] Service: ? Author Type: Nurse Practitioner Type: Progress Notes Filed: 06/06/2024 13:14 Note Text: Subjective Sinusitis Associated symptoms include congestion and ear pain (pressure). Pertinent negatives include no chills or sore throat. Elsy Dinero is a 54 year old female who presents with sinus pressure x 1 month. Was seen here on 05/31 and give 5 days of Augmentin. She had some mild relief of symptoms near the end of the augmentin but now symptoms have returned and are worse. She denies fever. She is also taking stanley, nasocort, and benadryl. History of environmental allergies and frequent sinus infections. Review of Systems Constitutional: Negative for chills, fever and malaise/fatigue. HENT: Positive for congestion, ear pain (pressure) and sinus pain. Negative for sore throat. Respiratory: Negative. Cardiovascular: Negative. BP 120/66 Pulse 84 Temp 36.1 ?C (97 ?F) (Left Tympanic) Resp 16 Wt 71.7 kg (158 lb) LMP 03/02/2015 SpO2 97% BMI 26.48 kg/m? PAST MEDICAL HISTORY Diagnosis Date Acid reflux Acute gastritis without mention of hemorrhage 09/14/2011 Allergy-induced asthma, mild intermittent, uncomplicated Asthma Chronic midline low back pain without sciatica 05/17/2016 Duodenitis 09/14/2011 Duodenitis without mention of hemorrhage Facet arthropathy, lumbar 05/17/2016 Hemorrhage of gastrointestinal tract, unspecified Hirsutism 09/16/2019 Pure hypercholesterolemia 06/28/2021 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 Spinal stenosis, lumbar region, without neurogenic claudication 03/27/2015 Suicidal ideation 03/03/2022 Tobacco use disorder 04/11/2007 Vascular occlusion 01/07/2022 Intraoperative L common iliac artery occlusion PAST SURGICAL HISTORY Procedure Laterality Date ARTHROSCOPIC REMOVAL HARDWARE DEEP 05/17/2022 removal of iliac screws ESOPHAGOGASTRODUODENOSCOPY TRANSORAL DIAGNOSTIC 09/14/2011 EGD ILIAC REVASC ADD-ON Left 01/07/2022 L Common Iliac Artery endarterectomy LUMBAR SPINE FUSION COMBINED 02/23/2022 L2 to ilium instrumented fusion, L3, 4 and 5 laminectomy, L2-3, 3-4 and L5-S1 transforaminal lumbar interbody fusion. LUMBAR SPINE FUSION,ANTER APPRCH 01/07/2022 ALIF L4-L5. ORTHOPEDICS SURGERY HX 08/23/2023 L2-S1 implant removal AND change PAST SURGICAL HISTORY OF 04/29/2012 excision of back lump SIGMOIDOSCOPY FLX DX W/COLLJ SPEC BR/WA IF PFRMD 09/14/2011 Sigmoidoscopy, flexible ALLERGIES Gabapentin, Prednisone, Cats, Ciprofloxacin, Dogs, Grass Pollen, Niacin, Pollen, and Trees MEDICATIONS spironolactone (ALDACTONE) 50 mg tablet Take 1 tablet by mouth two times a day. ibuprofen (MOTRIN ORAL) Take 600 mg by mouth three times a day. albuterol HFA (PROVENTIL HFA, VENTOLIN HFA) 90 mcg/actuation inhaler Inhale 2 Puffs as instructed every 4 hours as needed for wheezing/shortness of breath. methocarbamol (ROBAXIN) 750 mg tablet Take 1 tablet by mouth three times a day as needed. docusate sodium (COLACE) 100 mg capsule Take 1 capsule by mouth two times a day. sennosides (SENNACON ORAL) Take 1 tablet by mouth once daily. triamcinolone acetonide (NASACORT AQ NASAL) Use 1 [place] in the nose as needed (allergies). fexofenadine (STANLEY) 180 mg tablet Take 180 mg by mouth once daily. famotidine (PEPCID) 20 mg tablet Take 20 mg by mouth two times a day. doxycycline (VIBRA-TABS) 100 mg tablet Take 1 tablet by mouth two times a day for 7 days. lactobacillus rhamnosus (CULTURELLE) 10 billion cell capsule Take 1 capsule by mouth once daily. FAMILY HISTORY Problem Relation Age of Onset GI Mother colon polyps Cancer Mother Lung/Uterine/ cervical Allergies Mother Osteoporosis Mother GI Father colon polyps Diabetes Father Coronary Artery Disease Father Stents Heart Father age 85 Dementia Father No Known Problems Sister No Known Problems Sister Diabetes Brother Kidney Disease Brother dialysis Heart Failure Brother Breast Cancer Maternal Grandmother Allergies Maternal Grandfather Breast Cancer Paternal Grandmother Allergies Paternal Grandmother Diabetes Paternal Grandfather Allergies Daughter Heart Daughter PDA closure Allergies Daughter Anesthesia Problems No Family History Anesthesia No Family History Social History Tobacco Use Smoking status: Every Day Current packs/day: 1.00 Average packs/day: 2.0 packs/day for 38.8 years (76.8 ttl pk-yrs) Types: Cigarettes Start date: 07/10/1985 Last attempt to quit: 07/10/2023 Passive exposure: Current Smokeless tobacco: Never Tobacco comments: started age 13 Vaping Use Vaping status: Never Used Substance Use Topics Alcohol use: Not Currently Comment: recovering since 2016 Drug use: Not Currently Comment: experimented in her 20's Objective Physical Exam Vitals and nursing note reviewed. Constitutional: General: She is (more content not included)... [facility] 06-06-2024 History of Present illness Narrative Subjective Sinusitis Associated symptoms include congestion and ear pain (pressure). Pertinent negatives include no chills or sore throat. Elsy Dinero is a 54 year old female who presents with sinus pressure x 1 month. Was seen here on 05/31 and give 5 days of Augmentin. She had some mild relief of symptoms near the end of the augmentin but now symptoms have returned and are worse. She denies fever. She is also taking stanley, nasocort, and benadryl. History of environmental allergies and frequent sinus infections. Review of Systems Constitutional: Negative for chills, fever and malaise/fatigue. HENT: Positive for congestion, ear pain (pressure) and sinus pain. Negative for sore throat. Respiratory: Negative. Cardiovascular: Negative. BP 120/66 Pulse 84 Temp 36.1 C (97 F) (Left Tympanic) Resp 16 Wt 71.7 kg (158 lb) LMP 03/02/2015 SpO2 97% BMI 26.48 kg/m PAST MEDICAL HISTORY Diagnosis Date Acid reflux Acute gastritis without mention of hemorrhage 09/14/2011 Allergy-induced asthma, mild intermittent, uncomplicated Asthma Chronic midline low back pain without sciatica 05/17/2016 Duodenitis 09/14/2011 Duodenitis without mention of hemorrhage Facet arthropathy, lumbar 05/17/2016 Hemorrhage of gastrointestinal tract, unspecified Hirsutism 09/16/2019 Pure hypercholesterolemia 06/28/2021 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 Spinal stenosis, lumbar region, without neurogenic claudication 03/27/2015 Suicidal ideation 03/03/2022 Tobacco use disorder 04/11/2007 Vascular occlusion 01/07/2022 Intraoperative L common iliac artery occlusion PAST SURGICAL HISTORY Procedure Laterality Date ARTHROSCOPIC REMOVAL HARDWARE DEEP 05/17/2022 removal of iliac screws ESOPHAGOGASTRODUODENOSCOPY TRANSORAL DIAGNOSTIC 09/14/2011 EGD ILIAC REVASC ADD-ON Left 01/07/2022 L Common Iliac Artery endarterectomy LUMBAR SPINE FUSION COMBINED 02/23/2022 L2 to ilium instrumented fusion, L3, 4 and 5 laminectomy, L2-3, 3-4 and L5-S1 transforaminal lumbar interbody fusion. LUMBAR SPINE FUSION,ANTER APPRCH 01/07/2022 ALIF L4-L5. ORTHOPEDICS SURGERY HX 08/23/2023 L2-S1 implant removal & change PAST SURGICAL HISTORY OF 04/29/2012 excision of back lump SIGMOIDOSCOPY FLX DX W/COLLJ SPEC BR/WA IF PFRMD 09/14/2011 Sigmoidoscopy, flexible ALLERGIES Gabapentin, Prednisone, Cats, Ciprofloxacin, Dogs, Grass Pollen, Niacin, Pollen, and Trees MEDICATIONS spironolactone (ALDACTONE) 50 mg tablet Take 1 tablet by mouth two times a day. ibuprofen (MOTRIN ORAL) Take 600 mg by mouth three times a day. albuterol HFA (PROVENTIL HFA, VENTOLIN HFA) 90 mcg/actuation inhaler Inhale 2 Puffs as instructed every 4 hours as needed for wheezing/shortness of breath. methocarbamol (ROBAXIN) 750 mg tablet Take 1 tablet by mouth three times a day as needed. docusate sodium (COLACE) 100 mg capsule Take 1 capsule by mouth two times a day. sennosides (SENNACON ORAL) Take 1 tablet by mouth once daily. triamcinolone acetonide (NASACORT AQ NASAL) Use 1 [place] in the nose as needed (allergies). fexofenadine (STANLEY) 180 mg tablet Take 180 mg by mouth once daily. famotidine (PEPCID) 20 mg tablet Take 20 mg by mouth two times a day. doxycycline (VIBRA-TABS) 100 mg tablet Take 1 tablet by mouth two times a day for 7 days. lactobacillus rhamnosus (CULTURELLE) 10 billion cell capsule Take 1 capsule by mouth once daily. FAMILY HISTORY Problem Relation Age of Onset GI Mother colon polyps Cancer Mother Lung/Uterine/ cervical Allergies Mother Osteoporosis Mother GI Father colon polyps Diabetes Father Coronary Artery Disease Father Stents Heart Father age 85 Dementia Father No Known Problems Sister No Known Problems Sister Diabetes Brother Kidney Disease Brother dialysis Heart Failure Brother Breast Cancer Maternal Grandmother Allergies Maternal Grandfather Breast Cancer Paternal Grandmother Allergies Paternal Grandmother Diabetes Paternal Grandfather Allergies Daughter Heart Daughter PDA closure Allergies Daughter Anesthesia Problems No Family History Anesthesia No Family History Social History Tobacco Use Smoking status: Every Day Current packs/day: 1.00 Average packs/day: 2.0 packs/day for 38.8 years (76.8 ttl pk-yrs) Types: Cigarettes Start date: 07/10/1985 Last attempt to quit: 07/10/2023 Passive exposure: Current Smokeless tobacco: Never Tobacco comments: started age 13 Vaping Use Vaping status: Never Used Substance Use Topics Alcohol use: Not Currently Comment: recovering since 2016 Drug use: Not Currently Comment: experimented in her 20's Objective Physical Exam Vitals and nursing note reviewed. Constitutional: General: She is not in acute distress. Appearance: Normal appearance. She is not ill-appearing. HENT: Right Ear: Tympanic membrane, ear canal and external ear normal. Left Ear: Tympanic membrane, ear canal and external ear normal. Nose: Nasal tenderness, mucosal edema and congestion present. Mouth/Throat: Mouth: Mucous membranes are moist. Pharynx: Oropharynx is clear. Uvula midline. No oropharyngeal exudate or posterior oropharyngeal erythema. Cardiovascular: Rate and Rhythm: Normal rate and regular rhythm. Heart sounds: Normal heart sounds. Pulmonary: Effort: Pulmonary effort is normal. No respiratory distress. Breath sounds: Normal breath sounds. No wheezing or rales. Musculoskeletal: Cervical back: Neck supple. Lymphadenopathy: Cervical: No cervical adenopathy. Skin: General: Skin is warm and dry. Findings: No erythema or rash. Neurological: Mental Status: She is alert. ASSESSMENT/PLAN: 1. Bacterial sinusitis - ICD9: 473.9, 041.9, ICD10: J32.9, B96.89 - Will begin treatment with as per antibiotic as written, see orders - Supportive care with plenty of fluids, rest, and analgesia prn. - DOXYCYCLINE HYCLATE 100 MG TABLET - Follow-up with your PCP in 3-5 days if symptoms have not improved or sooner if symptoms worsen - Discussed red flags and need for immediate medical evaluation if any occur. - Discussed supportive care treatment with fluids, rest and analgesia. - Discussed expected course of illness Izaiah Medina APRN.CNP documented in this encounter [facility] 06-06-2024 Instructions Izaiah Medina APRN.CNP - 06/06/2024 12:45 PM EDT ASSESSMENT/PLAN: 1. Bacterial sinusitis - ICD9: 473.9, 041.9, ICD10: J32.9, B96.89 - Will begin treatment with as per antibiotic as written, see orders - Supportive care with plenty of fluids, rest, and analgesia prn. - DOXYCYCLINE HYCLATE 100 MG TABLET - Follow-up with your PCP in 3-5 days if symptoms have not improved or sooner if symptoms worsen - Discussed red flags and need for immediate medical evaluation if any occur. - Discussed supportive care treatment with fluids, rest and analgesia. - Discussed expected course of illness Izaiah Medina APRN.CNP [facility] PATIENT INFO ACUTE SINUSITIS OVERVIEW Rhinosinusitis, or more commonly sinusitis, is the medical term for inflammation (swelling) of the lining of the sinuses and nose. The sinuses are the hollow areas within the facial bones that are connected to the nasal openings. The sinuses are lined with mucous membranes, similar to the inside of the nose. There are two main types of sinusitis: acute and chronic. Acute sinusitis is inflammation that lasts for less than four weeks while chronic sinusitis lasts for more than 12 weeks. Acute sinusitis is common, affecting approximately one million people per year in the [place]. ACUTE SINUSITIS CAUSES The most common cause of acute sinusitis is a viral infection associated with the common cold. Bacterial sinusitis occurs much less commonly, in only 0.5 to 2 percent of cases, usually as a complication of viral sinusitis. Because antibiotics are effective only against bacterial, and not viral, infections, most people do not need antibiotics for acute sinusitis. ACUTE SINUSITIS SYMPTOMS Symptoms of acute sinusitis include: Nasal congestion or blockage Thick, yellow to green discharge from the nose Pain in the teeth Pain or pressure in the face that is worse when bending forwards Other acute sinusitis symptoms can include fever (temperature greater than 100.4 F or 38 C), fatigue, cough, difficulty or inability to smell, ear pressure or fullness, headache, and bad breath. In most cases, these symptoms develop over the course of one day and begin to improve within seven to 10 days. DO I NEED TO BE EXAMINED? It is difficult to know if you have a viral or bacterial sinus infection initially. However, most people with a viral infection improve without treatment within seven to 10 days after symptoms begin. Bacterial sinusitis also sometimes improves without treatment, although it can also worsen and require treatment. If one or more of the following bothersome symptoms last more than seven days, an examination by a healthcare provider is recommended: Thick, yellow to green discharge from the nose Face or tooth pain, especially if it is only on one side Tenderness over the maxillary sinuses (located on the left and right side of the nose, inside the cheekbones) Symptoms that initially improve and then worsen When to seek immediate help -- If you have one or more of the following symptoms, you should seek medical attention immediately (even if symptoms have been present for less than seven days): High fever (>102.5 F or 39.2 C) Sudden, severe pain in the face or head Double vision or difficulty seeing Confusion or difficulty thinking clearly Swelling or redness around one or both eyes Stiff neck, shortness of breath ACUTE SINUSITIS TREATMENT Initial treatment of a sinus infection aims to relieve symptoms since almost everyone will improve within the first seven to 10 days. Experts recommend avoiding antibiotics during this time unless there is clear evidence of a severe bacterial infection. Initial treatment Pain relief -- Non-prescription pain medications, such as acetaminophen (eg, Tylenol ) or ibuprofen (eg, Motrin , Advil ) are recommended for pain. Nasal irrigation and saline sprays -- Rinsing the nose with a salt-water (saline) solution is called nasal irrigation or nasal lavage. Saline is also available in a standard nasal spray, although this is not as effective as using larger amounts of water in an irrigation. Nasal irrigation is particularly useful for treating drainage down the back of the throat, sneezing, nasal dryness, and congestion. The treatment helps by rinsing out allergens and irritants from the nose. Saline rinses also clean the nasal lining and can be used before applying sprays containing medications, to get a better effect from the medication. Nasal lavage with warmed saline can be performed as needed, once per day, or twice daily for increased symptoms. Nasal lavage carries few risks when performed correctly. Saline nasal sprays and irrigation kits can be purchased [id number]. Saline mixes can also be purchased or patients can make their own solution. A variety of devices, including bulb syringes, Neti pots, and bottle sprayers, may be used to perform nasal lavage; instructions for nasal lavage are provided in the table. At least 200 mL (about 3/4 cup) of fluid is recommended for each nostril. Nasal decongestants -- Nasal decongestant sprays, including oxymetazoline (Afrin ) and phenylephrine (Doug-synephrine ) can be used to temporarily treat congestion. However, these sprays should not be used for more than two to three days due to the risk of rebound congestion (when the nose is congested constantly unless the medication is used repeatedly). Other treatments -- Other treatments for congestion, such as oral antihistamines (such as diphenhydramine/Benadryl ) or zinc supplements are not proven to improve symptoms of sinusitis and can have unwanted side effects. Medications to thin secretions (such as guaifenesin) may help to clear mucus. Secondline treatment -- If symptoms have not improved in seven to ten days, you should arrange for medical evaluation. You may need further treatment. Nasal glucocorticoids -- Nasal glucocorticoids (steroids delivered by a nasal spray) can help to reduce swelling inside the nose, usually within two to three days. These drugs have few side effects and dramatically relieve symptoms in most people. There are a number of nasal glucocorticoids available by prescription. These drugs are all effective, but differ in how frequently they must be used and how much they cost. You may need to use a nasal decongestant for a few days before starting a nasal glucocorticoid to reduce nasal swelling; this will allow the nasal glucocorticoid to reach more areas of the nasal passages Do I need an antibiotic? -- If bothersome symptoms of sinusitis persist for 10 or more days, it is possible that you have bacterial sinusitis. The need for antibiotics depends upon the severity of your symptoms. Mild symptoms -- There are two possible treatment options if you have mild sinusitis symptoms: treat with antibiotics or continue to watch and wait for one week. Watching and waiting is a reasonable option because up to 75 percent of people with bacterial sinusitis improve within one month without antibiotics. During the watch and wait period, treatments to improve symptoms are recommended. If symptoms worsen or do not improve after watching and waiting, treatment with an antibiotic is usually recommended. Treatments to relieve symptoms are recommended while using antibiotics. Moderate or severe symptoms -- Most healthcare providers will prescribe an antibiotic for moderate to severe symptoms (temperature >38.3 C or 101 F and/or severe pain that interferes with usual activities). Treatments to relieve symptoms are also recommended during antibiotic treatment. One of the least expensive and most effective antibiotics for sinusitis is amoxicillin. An alternate antibiotic will be prescribed if you are allergic to penicillin. Regardless of which antibiotic is prescribed, it is important to follow the dosing instructions carefully and to finish the entire course of treatment. Taking the medication less often than prescribed or stopping the medication early can lead to complications, such as a recurrent infection. What if I do not improve with treatment? -- If you do not improve or worsen after a course of antibiotics, you should be re-examined. In some cases, symptoms of sinusitis improve but then recur. This is usually because the infection was not completely eliminated by the antibiotic. An alternate antibiotic, extended antibiotic treatment, and/or further testing may be recommended, depending upon your individual situation. documented in this encounter [facility] 06-03-2024 Telephone encounter Note Call placed to patient. Asked patient if she needed a letter to return to work. State she is not ready to go back to work just yet but is hoping in the near future. States she does not need a letter at this time but will reach out to the office when needed. [facility] 06-03-2024 Telephone encounter Note ----- Message from Ambrose Birch MD sent at 06/03/2024 10:47 AM EDT ----- Patient needs later to return to work with comfortable shoes and maybe some sort of ability to take breaks. Thanks [facility] 06-03-2024 Miscellaneous Notes Call placed to patient. Asked patient if she needed a letter to return to work. State she is not ready to go back to work just yet but is hoping in the near future. States she does not need a letter at this time but will reach out to the office when needed. ----- Message from Ambrose Birch MD sent at 06/03/2024 10:47 AM EDT ----- Patient needs later to return to work with comfortable shoes and maybe some sort of ability to take breaks. Thanks documented in this encounter [facility] 06-03-2024 History of Present illness Narrative SPINE SURGERY ESTABLISHED This is an in-person visit. DATE OF SERVICE: 06/03/2024 DATE OF LAST VISIT: 12/04/2023 SURGERY DATE: 08/23/2023 SUBJECTIVE: HPI:Elsy Dinero is a 54 year old female presenting alone. At [facility], the patient reported pain and spasms in her back, worse on right side. Spasms tend to be triggered by some activities and stretches. She is now doing aqua therapy and physical therapy exercises on her own which is helpful. She can tolerate walking short distances but experiences buckling and requires a walker for longer distances. Today, the patient reports that she has shown great improvement after her surgery. As of now, she was undergoing physical therapy 5-6 days a week to build her strength back. She is able to lift weights and walk for about a mile before feeling pain in he back and feet. She states she needs to frequently stretch her muscles while walking in order to keep ambulating. She is able to stand up straight on her own at this time. PAIN EVALUATION No data found in the last 1 encounters. Pain Radiation: Low back and legs Aggravating Factors: Walking greater distances Alleviating Factors: Exercising/activity AMBULATORY STATUS: Independent Community Distances ANTIPLATELET OR ANTICOAGULATION STATUS: No PREVIOUS CONSERVATIVE TREATMENTS: Ibuprofen, Robaxin REVIEW OF SYSTEMS: GENERAL: No weight loss or malaise MUSCULOSKELETAL: SEE HPI NEURO: No history of syncope, paralysis, seizures or tremors MEDICATIONS: amoxicillin-clavulanate potassium (AUGMENTIN) 875-125 mg per tablet Take 1 tablet by mouth two times a day for 5 days. spironolactone (ALDACTONE) 50 mg tablet Take 1 tablet by mouth two times a day. ibuprofen (MOTRIN ORAL) Take 600 mg by mouth three times a day. albuterol HFA (PROVENTIL HFA, VENTOLIN HFA) 90 mcg/actuation inhaler Inhale 2 Puffs as instructed every 4 hours as needed for wheezing/shortness of breath. methocarbamol (ROBAXIN) 750 mg tablet Take 1 tablet by mouth three times a day as needed. docusate sodium (COLACE) 100 mg capsule Take 1 capsule by mouth two times a day. sennosides (SENNACON ORAL) Take 1 tablet by mouth once daily. triamcinolone acetonide (NASACORT AQ NASAL) Use 1 [place] in the nose as needed (allergies). fexofenadine (STANLEY) 180 mg tablet Take 180 mg by mouth once daily. famotidine (PEPCID) 20 mg tablet Take 20 mg by mouth two times a day. Patient Entered Questionnaires 04/27/2021 06/10/2021 12/20/2021 Spine Questions Pain Location: Lower back Lower back Lower back Pain Duration: More than 5 years Symptoms from neck/cervical spine: No No No Employment Status: Working now Involved in law suit/legal claim: No 04/27/2021 Spine Red Flags Any type of cancer: No Unexplained fever: No Bowel or bladder disfunction: Yes Unintentional weight loss: No Osteoporosis: No PROMIS Score Percentiles 04/27/2021 06/10/2021 12/20/2021 Physical Health Physical Function Percentile 3 2 2 Sleep Percentile 4 4 21* Fatigue Percentile 14 1 4 Pain Interference Percentile 1 1 4 04/27/2021 06/10/2021 12/20/2021 PROMIS SOCIAL ROLE SCORE Social Role Satisfaction Percentile 10 8 18* 05/17/2016 04/27/2021 12/20/2021 PROMIS Global Health Scale Physical Health Percentile 7 4 2 Mental Health Percentile 26* 43 13 Percentiles provide an indication of how the patient's score ranks in relation to the general population. Higher percentile rankings indicate better function/quality of life. 50th percentile is the average of the general population and indicates half of respondents had a worse score. Depression Screenin04/27/2021 06/10/2021 12/20/2021 PHQ-9 Score 9 10 10 04/27/2021 06/10/2021 12/20/2021 PHQ-9 Self-harm Question Question 9 Not at all Not at all Not at all PHQ-9 Self-Harm (Item 9) response options: 0 Not at all 1 Several days 2 More than half the days 3 Nearly every day PHQ-9 Levels: 0-4 No to mild depression 5-9 Mild depression 10-14 Moderate depression 15-19 Moderately severe depression 20-27 Severe depression OBJECTIVE: PHYSICAL EXAM: Ht 5' 4.764 (1.65m) Wt 158 lb 1.1 oz (71.7kg) LMP 03/02/2015 BMI 26.50 kg/(m^2). GENERAL APPEARANCE: Well nourished, well developed, and no apparent distress. NEURO PSYCH: Patient oriented to person, place, and time. Mood pleasant. Benign affect. 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 SENSORY: Normal sensory exam GAIT: Normal. REFLEXES: +2 to bilateral U/L extremities. STRAIGHT LEG TEST: 4+ Right dorsiflexion Good sagittal balance. NEURO TESTS: None DATA REVIEW: No additional images reviewed today Medical Decision Making: Problems: Low: Stable chronic illness Risk: Low: Low risk from testing/treatment Medical Decision Making Level: 3 - Low ASSESSMENT/PLAN lumbar radiculopathy Low back and leg pain Elsy Dinero will continue with medical management of his/her condition. Follow up: Three months for follow up CT Scan. Advised to call if symptoms worsen. I spent a total of 12 minutes on the date of the service which included preparing to see the patient, [id number] patient care, completing clinical documentation, obtaining and/or reviewing separately obtained history, performing a medically appropriate examination, and counseling and educating the patient/family/caregiver. Scribe Attestation: By signing my name below, IIrineo, attest that this documentation has been prepared under the direction and in the presence of Dr. Ambrose Birch.Electronically Signed: Ana Maria Arreguin. June 03, 2024. Provider Attestation: Ambrose Thakkar MD, personally performed the services described in this documentation. All medical record entries made by the scribe were at my direction and in my presence. I have reviewed the chart and discharge instructions (if applicable) and agree that the record reflects my personal performance and is accurate and complete. I spent a total of 12 minutes on the date of the service which included preparing to see the patient, [id number] patient care, completing clinical documentation, performing a medically appropriate examination, counseling and educating the patient/family/caregiver, and ordering medications, tests, or procedures Electronically Signed: Ambrose Birch MD June 03, 2024 12:44 PM SIGNATURE: Ambrose Birch MD PATIENT NAME: Elsy iDnero DATE: June 03, 2024 TIME: 10:37 AM PAGER: documented in this encounter [facility] 06-03-2024 Note HNO ID: [id number] Author: AMBROSE BIRCH MD Service: ? Author Type: Physician Type: Progress Notes Filed: 06/03/2024 12:44 Note Text: SPINE SURGERY ESTABLISHED This is an in-person visit. DATE OF SERVICE: 06/03/2024 DATE OF LAST VISIT: 12/04/2023 SURGERY DATE: 08/23/2023 SUBJECTIVE: HPI:Elsy Dinero is a 54 year old female presenting alone. At [facility], the patient reported pain and spasms in her back, worse on right side. Spasms tend to be triggered by some activities and stretches. She is now doing aqua therapy and physical therapy exercises on her own which is helpful. She can tolerate walking short distances but experiences buckling and requires a walker for longer distances. Today, the patient reports that she has shown great improvement after her surgery. As of now, she was undergoing physical therapy 5-6 days a week to build her strength back. She is able to lift weights and walk for about a mile before feeling pain in he back and feet. She states she needs to frequently stretch her muscles while walking in order to keep ambulating. She is able to stand up straight on her own at this time. PAIN EVALUATION No data found in the last 1 encounters. Pain Radiation: Low back and legs Aggravating Factors: Walking greater distances Alleviating Factors: Exercising/activity AMBULATORY STATUS: Independent Community Distances ANTIPLATELET OR ANTICOAGULATION STATUS: No PREVIOUS CONSERVATIVE TREATMENTS: Ibuprofen, Robaxin REVIEW OF SYSTEMS: GENERAL: No weight loss or malaise MUSCULOSKELETAL: SEE HPI NEURO: No history of syncope, paralysis, seizures or tremors MEDICATIONS: amoxicillin-clavulanate potassium (AUGMENTIN) 875-125 mg per tablet Take 1 tablet by mouth two times a day for 5 days. spironolactone (ALDACTONE) 50 mg tablet Take 1 tablet by mouth two times a day. ibuprofen (MOTRIN ORAL) Take 600 mg by mouth three times a day. albuterol HFA (PROVENTIL HFA, VENTOLIN HFA) 90 mcg/actuation inhaler Inhale 2 Puffs as instructed every 4 hours as needed for wheezing/shortness of breath. methocarbamol (ROBAXIN) 750 mg tablet Take 1 tablet by mouth three times a day as needed. docusate sodium (COLACE) 100 mg capsule Take 1 capsule by mouth two times a day. sennosides (SENNACON ORAL) Take 1 tablet by mouth once daily. triamcinolone acetonide (NASACORT AQ NASAL) Use 1 [place] in the nose as needed (allergies). fexofenadine (STANLEY) 180 mg tablet Take 180 mg by mouth once daily. famotidine (PEPCID) 20 mg tablet Take 20 mg by mouth two times a day. Patient Entered Questionnaires 04/27/2021 06/10/2021 12/20/2021 Spine Questions Pain Location: Lower back Lower back Lower back Pain Duration: More than 5 years Symptoms from neck/cervical spine: No No No Employment Status: Working now Involved in law suit/legal claim: No 04/27/2021 Spine Red Flags Any type of cancer: No Unexplained fever: No Bowel or bladder disfunction: Yes Unintentional weight loss: No Osteoporosis: No PROMIS Score Percentiles 04/27/2021 06/10/2021 12/20/2021 Physical Health Physical Function Percentile 3 2 2 Sleep Percentile 4 4 21* Fatigue Percentile 14 1 4 Pain Interference Percentile 1 1 4 04/27/2021 06/10/2021 12/20/2021 PROMIS SOCIAL ROLE SCORE Social Role Satisfaction Percentile 10 8 18* 05/17/2016 04/27/2021 12/20/2021 PROMIS Global Health Scale Physical Health Percentile 7 4 2 Mental Health Percentile 26* 43 13 Percentiles provide an indication of how the patient's score ranks in relation to the general population. Higher percentile rankings indicate better function/quality of life. 50th percentile is the average of the general population and indicates half of respondents had a worse score. Depression Screenin04/27/2021 06/10/2021 12/20/2021 PHQ-9 Score 9 10 10 04/27/2021 06/10/2021 12/20/2021 PHQ-9 Self-harm Question Question 9 Not at all Not at all Not at all PHQ-9 Self-Harm (Item 9) response options: 0 Not at all 1 Several days 2 More than half the days 3 Nearly every day PHQ-9 Levels: 0-4 No to mild depression 5-9 Mild depression 10-14 Moderate depression 15-19 Moderately severe depression 20-27 Severe depression OBJECTIVE: PHYSICAL EXAM: Ht 5' 4.764 (1.65m) Wt 158 lb 1.1 oz (71.7kg) LMP 03/02/2015 BMI 26.50 kg/(m2). GENERAL APPEARANCE: Well nourished, well developed, and no apparent distress. NEURO PSYCH: Patient oriented to person, place, and time. Mood pleasant. Benign affect. 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 SENSORY: Normal sensory exam GAIT: Normal. REFLEXES: +2 to bilateral U/L extremities. STRAIGHT LEG TEST: 4+ Right dorsiflexion Good sagittal balance. NEURO TESTS: None DATA REVIEW: No additional images reviewed today Medical Decision Making: Problems: Low: Stable chronic illness Risk: Low (more content not included)... [facility] 05-31-2024 Note HNO ID: [id number] Author: URBANO AMAYA MD Service: ? Author Type: Physician Type: Progress Notes Filed: 05/31/2024 15:45 Note Text: Patient presents with: Sinus Problem: Sinus congestion, pain and pressure, VERNON, ear pain x2 weeks HPI: Feeling s progressively worsening head congestion for a few weeks Positive symptoms: Earache, Sinus pressure, Nasal Congestion, post-nasal drainage, Headache, eye pain, hoarse voice Negative symptoms: Chest tightness, Fever, Chills, OTC: Stanley, Nasacort, allergy eyedrops. MEDICATIONS: Current Outpatient Medications Medication Sig spironolactone (ALDACTONE) 50 mg tablet Take 1 tablet by mouth two times a day. ibuprofen (MOTRIN ORAL) Take 600 mg by mouth three times a day. albuterol HFA (PROVENTIL HFA, VENTOLIN HFA) 90 mcg/actuation inhaler Inhale 2 Puffs as instructed every 4 hours as needed for wheezing/shortness of breath. methocarbamol (ROBAXIN) 750 mg tablet Take 1 tablet by mouth three times a day as needed. docusate sodium (COLACE) 100 mg capsule Take 1 capsule by mouth two times a day. sennosides (SENNACON ORAL) Take 1 tablet by mouth once daily. triamcinolone acetonide (NASACORT AQ NASAL) Use 1 [place] in the nose as needed (allergies). fexofenadine (STANLEY) 180 mg tablet Take 180 mg by mouth once daily. famotidine (PEPCID) 20 mg tablet Take 20 mg by mouth two times a day. No current facility-administered medications for this visit. ALLERGIES: ALLERGIES Allergen Reactions Gabapentin Mental Status Change Prednisone Mental Status Change FEELS LIKE I'M GOING NUTS Cats Hives Ciprofloxacin Vomiting States can take if she eats with it. Dogs Hives Grass Pollen Intolerance Niacin Rash, Vomiting Pollen Hives Trees Intolerance VITALS: BP 115/74 Pulse 96 Temp 36.3 ?C (97.3 ?F) Resp 18 Wt 72.2 kg (159 lb 2.8 oz) LMP 03/02/2015 SpO2 98% BMI 27.32 kg/m? PHYSICAL EXAM: GEN: mildly ill appearing, ambulates with a wheeled walker HEENT: PERRL, EOMI, conjunctiva clear Ears: canals clear. TMs without erythema, bulge, or effusion Sinuses: non-tender frontal sinus, pressure over maxillary sinuses Throat: moist mucous membranes, mild erythema, no exudate Neck: supple, no thyromegaly, no lymphadenopathy HEART: regular rate and rhythm, no murmurs LUNGS: clear to auscultation, no wheezes or crackles, no increased WOB ASSESSMENT/PLAN: 1. Acute non-recurrent sinusitis, unspecified location - ICD9: 461.9, ICD10: J01.90 Environmental allergy symptoms with possible secondary bacterial sinusitis - AMOXICILLIN 875 MG-POTASSIUM CLAVULANATE 125 MG TABLET Continue allergy regimen Urbano Amaya MD [facility] 05-31-2024 History of Present illness Narrative Patient presents with: Sinus Problem: Sinus congestion, pain and pressure, VERNON, ear pain x2 weeks HPI: Feeling s progressively worsening head congestion for a few weeks Positive symptoms: Earache, Sinus pressure, Nasal Congestion, post-nasal drainage, Headache, eye pain, hoarse voice Negative symptoms: Chest tightness, Fever, Chills, OTC: Stanley, Nasacort, allergy eyedrops. MEDICATIONS: Current Outpatient Medications Medication Sig spironolactone (ALDACTONE) 50 mg tablet Take 1 tablet by mouth two times a day. ibuprofen (MOTRIN ORAL) Take 600 mg by mouth three times a day. albuterol HFA (PROVENTIL HFA, VENTOLIN HFA) 90 mcg/actuation inhaler Inhale 2 Puffs as instructed every 4 hours as needed for wheezing/shortness of breath. methocarbamol (ROBAXIN) 750 mg tablet Take 1 tablet by mouth three times a day as needed. docusate sodium (COLACE) 100 mg capsule Take 1 capsule by mouth two times a day. sennosides (SENNACON ORAL) Take 1 tablet by mouth once daily. triamcinolone acetonide (NASACORT AQ NASAL) Use 1 [place] in the nose as needed (allergies). fexofenadine (STANLEY) 180 mg tablet Take 180 mg by mouth once daily. famotidine (PEPCID) 20 mg tablet Take 20 mg by mouth two times a day. No current facility-administered medications for this visit. ALLERGIES: ALLERGIES Allergen Reactions Gabapentin Mental Status Change Prednisone Mental Status Change FEELS LIKE I'M GOING NUTS Cats Hives Ciprofloxacin Vomiting States can take if she eats with it. Dogs Hives Grass Pollen Intolerance Niacin Rash, Vomiting Pollen Hives Trees Intolerance VITALS: BP 115/74 Pulse 96 Temp 36.3 C (97.3 F) Resp 18 Wt 72.2 kg (159 lb 2.8 oz) LMP 03/02/2015 SpO2 98% BMI 27.32 kg/m PHYSICAL EXAM: GEN: mildly ill appearing, ambulates with a wheeled walker HEENT: PERRL, EOMI, conjunctiva clear Ears: canals clear. TMs without erythema, bulge, or effusion Sinuses: non-tender frontal sinus, pressure over maxillary sinuses Throat: moist mucous membranes, mild erythema, no exudate Neck: supple, no thyromegaly, no lymphadenopathy HEART: regular rate and rhythm, no murmurs LUNGS: clear to auscultation, no wheezes or crackles, no increased WOB ASSESSMENT/PLAN: 1. Acute non-recurrent sinusitis, unspecified location - ICD9: 461.9, ICD10: J01.90 Environmental allergy symptoms with possible secondary bacterial sinusitis - AMOXICILLIN 875 MG-POTASSIUM CLAVULANATE 125 MG TABLET Continue allergy regimen Urbano Amaya MD documented in this encounter [facility] 04-15-2024 Note HNO ID: [id number] Author: LEXY FRANCIS MD Service: ? Author Type: Physician Type: Progress Notes Filed: 04/15/2024 17:35 Note Text: [facility] Initial Clinic Visit Note Consulted by: Nusrat Alva APRN Chief Complaint: Hirsutism HPI: This is a 53 year old female who presents with evaluation of hirsutism She has been on Spironolactone for many years Reports at age 18, her DHEA-s was high and was started on this medication. She reports stopping the medication when and breast feeding. Per chart review and confirming from patient, she restarted spironolactone in 2014 after checking labs and DHEA-s was found to be high in 300s She reports still having facial hair on chin. She would like to check her hormones as she is menopausal and does not want to use the medication if she does not have to. She thinks her weight gain is due to hormones being abnormal, and would like to know if aldactone has any effect of bone density She has 4 back surgeries with fusions in the last 2.5 years. Not on any exercise She had menopause in late 40s, rep[orts her menarche was at a younger age as well PAST MEDICAL HISTORY: PAST MEDICAL HISTORY No date: Acid reflux 09/14/2011: Acute gastritis without mention of hemorrhage No date: Allergy-induced asthma, mild intermittent, uncomplicated No date: Asthma 05/17/2016: Chronic midline low back pain without sciatica 09/14/2011: Duodenitis No date: Duodenitis without mention of hemorrhage 05/17/2016: Facet arthropathy, lumbar No date: Hemorrhage of gastrointestinal tract, unspecified 09/16/2019: Hirsutism 06/28/2021: Pure hypercholesterolemia 10/02/2016: Recovering alcoholic (HCC) 03/27/2015: Spinal stenosis, lumbar region, without neurogenic claudication 03/03/2022: Suicidal ideation 04/11/2007: Tobacco use disorder 01/07/2022: Vascular occlusion Comment: Intraoperative L common iliac artery occlusion PAST SURGICAL HISTORY: PAST SURGICAL HISTORY 05/17/2022: ARTHROSCOPIC REMOVAL HARDWARE DEEP Comment: removal of iliac screws 09/14/2011: ESOPHAGOGASTRODUODENOSCOPY TRANSORAL DIAGNOSTIC Comment: EGD 01/07/2022: ILIAC REVASC ADD-ON; Left Comment: L Common Iliac Artery endarterectomy 02/23/2022: LUMBAR SPINE FUSION COMBINED Comment: L2 to ilium instrumented fusion, L3, 4 and 5 laminectomy, L2-3, 3-4 and L5-S1 transforaminal lumbar interbody fusion. 01/07/2022: LUMBAR SPINE FUSION,ANTER APPRCH Comment: ALIF L4-L5. 04/29/2012: PAST SURGICAL HISTORY OF Comment: excision of back lump 09/14/2011: SIGMOIDOSCOPY FLX DX W/COLLJ SPEC BR/WA IF PFRMD Comment: Sigmoidoscopy, flexible FAMILY HISTORY: FAMILY HISTORY Problem Relation Age of Onset GI Mother colon polyps Cancer Mother Lung/Uterine/ cervical Allergies Mother GI Father colon polyps Diabetes Father Coronary Artery Disease Father Stents Heart Father age 85 Dementia Father No Known Problems Sister No Known Problems Sister Diabetes Brother Kidney Disease Brother dialysis Heart Failure Brother Allergies Daughter Heart Daughter PDA closure Allergies Daughter Breast Cancer Maternal Grandmother Allergies Maternal Grandfather Breast Cancer Paternal Grandmother Allergies Paternal Grandmother Diabetes Paternal Grandfather Anesthesia Problems No Family History Anesthesia No Family History SOCIAL HISTORY: Social History Tobacco Use Smoking status: Former Current packs/day: 0.00 Average packs/day: 2.0 packs/day for 38.0 years (76.0 ttl pk-yrs) Types: Cigarettes Start date: 07/10/1985 Quit date: 07/10/2023 Years since quittin.7 Smokeless tobacco: Never Tobacco comments: started age 13. Resumed 1 PPD 10/2022 Vaping Use Vaping status: Never Used Substance Use Topics Alcohol use: Not Currently Comment: recovering since 2016. Drug use: Not Currently Comment: experimented in 20s MEDICATIONS: Current Outpatient Medications Medication Sig ibuprofen (MOTRIN ORAL) Take 600 mg by mouth three times a day. spironolactone (ALDACTONE) 50 mg tablet Take 1 tablet by mouth two times a day. albuterol HFA (PROVENTIL HFA, VENTOLIN HFA) 90 mcg/actuation inhaler Inhale 2 Puffs as instructed every 4 hours as needed for wheezing/shortness of breath. methocarbamol (ROBAXIN) 750 mg tablet Take 1 tablet by mouth three times a day as needed. docusate sodium (COLACE) 100 mg capsule Take 1 capsule by mouth two times a day. sennosides (SENNACON ORAL) Take 1 tablet by mouth once daily. triamcinolone acetonide (NASACORT AQ NASAL) Use 1 [place] in the nose. qAM as needed for allergies Patient should start on August 29, 2023. fexofenadine (STANLEY) 180 mg tablet Take 180 mg by mouth once daily. famotidine (PEPCID ORAL) Take 20 mg by mouth two times a day. Patient should start on August 29, 2023. No current facility-administered medications for this visit. ALLERGIES: ALLERGIE (more content not included)... [facility] 04-15-2024 History of Present illness Narrative [facility] Initial Clinic Visit Note Consulted by: Nusrat Alva APRN Chief Complaint: Hirsutism HPI: This is a 53 year old female who presents with evaluation of hirsutism She has been on Spironolactone for many years Reports at age 18, her DHEA-s was high and was started on this medication. She reports stopping the medication when and breast feeding. Per chart review and confirming from patient, she restarted spironolactone in 2014 after checking labs and DHEA-s was found to be high in 300s She reports still having facial hair on chin. She would like to check her hormones as she is menopausal and does not want to use the medication if she does not have to. She thinks her weight gain is due to hormones being abnormal, and would like to know if aldactone has any effect of bone density She has 4 back surgeries with fusions in the last 2.5 years. Not on any exercise She had menopause in late 40s, rep[orts her menarche was at a younger age as well PAST MEDICAL HISTORY: PAST MEDICAL HISTORY No date: Acid reflux 09/14/2011: Acute gastritis without mention of hemorrhage No date: Allergy-induced asthma, mild intermittent, uncomplicated No date: Asthma 05/17/2016: Chronic midline low back pain without sciatica 09/14/2011: Duodenitis No date: Duodenitis without mention of hemorrhage 05/17/2016: Facet arthropathy, lumbar No date: Hemorrhage of gastrointestinal tract, unspecified 09/16/2019: Hirsutism 06/28/2021: Pure hypercholesterolemia 10/02/2016: Recovering alcoholic (HCC) 03/27/2015: Spinal stenosis, lumbar region, without neurogenic claudication 03/03/2022: Suicidal ideation 04/11/2007: Tobacco use disorder 01/07/2022: Vascular occlusion Comment: Intraoperative L common iliac artery occlusion PAST SURGICAL HISTORY: PAST SURGICAL HISTORY 05/17/2022: ARTHROSCOPIC REMOVAL HARDWARE DEEP Comment: removal of iliac screws 09/14/2011: ESOPHAGOGASTRODUODENOSCOPY TRANSORAL DIAGNOSTIC Comment: EGD 01/07/2022: ILIAC REVASC ADD-ON; Left Comment: L Common Iliac Artery endarterectomy 02/23/2022: LUMBAR SPINE FUSION COMBINED Comment: L2 to ilium instrumented fusion, L3, 4 and 5 laminectomy, L2-3, 3-4 and L5-S1 transforaminal lumbar interbody fusion. 01/07/2022: LUMBAR SPINE FUSION,ANTER APPRCH Comment: ALIF L4-L5. 04/29/2012: PAST SURGICAL HISTORY OF Comment: excision of back lump 09/14/2011: SIGMOIDOSCOPY FLX DX W/COLLJ SPEC BR/WA IF PFRMD Comment: Sigmoidoscopy, flexible FAMILY HISTORY: FAMILY HISTORY Problem Relation Age of Onset GI Mother colon polyps Cancer Mother Lung/Uterine/ cervical Allergies Mother GI Father colon polyps Diabetes Father Coronary Artery Disease Father Stents Heart Father age 85 Dementia Father No Known Problems Sister No Known Problems Sister Diabetes Brother Kidney Disease Brother dialysis Heart Failure Brother Allergies Daughter Heart Daughter PDA closure Allergies Daughter Breast Cancer Maternal Grandmother Allergies Maternal Grandfather Breast Cancer Paternal Grandmother Allergies Paternal Grandmother Diabetes Paternal Grandfather Anesthesia Problems No Family History Anesthesia No Family History SOCIAL HISTORY: Social History Tobacco Use Smoking status: Former Current packs/day: 0.00 Average packs/day: 2.0 packs/day for 38.0 years (76.0 ttl pk-yrs) Types: Cigarettes Start date: 07/10/1985 Quit date: 07/10/2023 Years since quittin.7 Smokeless tobacco: Never Tobacco comments: started age 13. Resumed 1 PPD 10/2022 Vaping Use Vaping status: Never Used Substance Use Topics Alcohol use: Not Currently Comment: recovering since 2016. Drug use: Not Currently Comment: experimented in 20s MEDICATIONS: Current Outpatient Medications Medication Sig ibuprofen (MOTRIN ORAL) Take 600 mg by mouth three times a day. spironolactone (ALDACTONE) 50 mg tablet Take 1 tablet by mouth two times a day. albuterol HFA (PROVENTIL HFA, VENTOLIN HFA) 90 mcg/actuation inhaler Inhale 2 Puffs as instructed every 4 hours as needed for wheezing/shortness of breath. methocarbamol (ROBAXIN) 750 mg tablet Take 1 tablet by mouth three times a day as needed. docusate sodium (COLACE) 100 mg capsule Take 1 capsule by mouth two times a day. sennosides (SENNACON ORAL) Take 1 tablet by mouth once daily. triamcinolone acetonide (NASACORT AQ NASAL) Use 1 [place] in the nose. qAM as needed for allergies Patient should start on August 29, 2023. fexofenadine (STANLEY) 180 mg tablet Take 180 mg by mouth once daily. famotidine (PEPCID ORAL) Take 20 mg by mouth two times a day. Patient should start on August 29, 2023. No current facility-administered medications for this visit. ALLERGIES: ALLERGIES Allergen Reactions Gabapentin Mental Status Change Niacin Rash, Vomiting Prednisone Mental Status Change FEELS LIKE I'M GOING NUTS Cats Hives Ciprofloxacin Vomiting States can take if she eats with it. Dogs Hives Grass Pollen Intolerance Pollen Hives Trees Intolerance REVIEW OF SYSTEMS: GENERAL: No weight loss, malaise or fevers HEENT: Negative for frequent or significant headaches, No changes in hearing or vision, no nose bleeds or other nasal problems NECK: Negative for lumps, goiter, pain and significant neck swelling RESPIRATORY: Negative for cough, hemoptysis, wheezing, COPD, dyspnea or shortness of breath CARDIOVASCULAR: Negative for chest pain, leg swelling, hypertension, CHF or palpitations GI: No nausea, vomiting, or diarrhea MUSCULOSKELETAL: Negative for joint pain or swelling, back pain or muscle pain SKIN: Negative for lesions, rash, and itching ENDOCRINE: Negative for cold or heat intolerance, polyuria, polydipsia and goiter NEURO: No history of headaches, syncope, paralysis, seizures or tremors All other reviewed and negative other than HPI. PHYSICAL EXAM: Pulse 74 Resp 20 Ht 162.6 cm (5' 4) Wt 71.6 kg (157 lb 12.8 oz) LMP 03/02/2015 SpO2 99% BMI 27.09 kg/m Body mass index is 27.09 kg/m . General Appearance: Well appearing, alert, in no acute distress, well-hydrated, overweight,m walking with an assistive device, reports not using this at home Eyes: Extraocular movements are intact. . Neck: Supple, no adenopathy; thyroid symmetric, normal size, no bruits. Lungs: unlabored breathing on room air Heart: Regular rate and rhythm Extremities: No deformities, edema, skin discoloration, clubbing or cyanosis, tremors Peripheral Pulses: Normal. Neurologic: Gait normal. LABS: Latest Ref Rng 08/27/2023 Glucose 74 - 99 mg/dL 121 (H) BUN 7 - 21 mg/dL 7 Creatinine 0.58 - 0.96 mg/dL 0.68 Sodium 136 - 144 mmol/L 137 Potassium 3.7 - 5.1 mmol/L 4.1 Chloride 97 - 105 mmol/L 98 CO2 22 - 30 mmol/L 31 (H) Anion Gap 9 - 18 mmol/L 8 (L) Calcium 8.5 - 10.2 mg/dL 8.7 eGFR >=60 mL/min/1.73m 103 Latest Reference Range & Units 05/11/01 11:25 12/27/04 09:39 04/19/05 09:17 04/21/15 07:44 01/25/01 08:10 02/15/01 13:10 DHEA-S 30.0 - 300.0 ug/dL 377.7 ! (C) 369.8 ! 230.3 ! 394.2 (H) 222.9 401.3 ! 312.2 ! (C) !: Data is abnormal (H): Data is abnormally high (C): Corrected Legend: (H) High (L) Low ASSESSMENT : 53 year old female who presents for evaluation of hirsutism. Currently on aldactone 50 mg BID, started when young but was on it on and off due to pregnancies and . Most recently started on it again in 2014 after DHEA-s was found to be 394.5 Discussed with patient that the medication she is on is a decent dose and should improve facial hair. There is a chance we can increase the dose of medication if she prefers but her BP might have to be followed closely, and patient also reports having episodes of borderline BP. On the other hand, discussed as the labs in 2015 were done off of the medication, they are likely accurate and discontinuing the medication and rechecking might not offer any new information unless she would like to go off of it either way. I also d/w her that menopause is a clinical diagnosis and hormonal labs might not be required unless she has had surgical menopause or to evaluate for premature menopause. Also reviewed some patients do have increased facial hair after menopause, due to low estrogen level (and possible thecosis)a dn the treatment might continue to be aldactone. I reviewed causes for weight gain in her case,a dn she seemed to agree with them. I further reassured patient that aldactone is unlikely to worsen her bone density apart from the non modifiable factors she already might have PLAN: 1. Hirsutism Continue aldactone as is, if she prefers FOLLOW UP: PRN My recommendations will be shared with consulting provider Nusrat Alva, 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 I spent a total of 40 minutes on the date of the service which included preparing to see the patient, [id number] patient care, completing clinical documentation, obtaining and/or reviewing separately obtained history, performing a medically appropriate examination, counseling and educating the patient/family/caregiver, ordering medications, tests, or procedures, and independently interpreting results (not separately reported). Medical Decision Making: Medical Decision Making Level: 1 - N/A Lexy Francis MD Endocrinology Associate Staff [facility] Endocrinology and Metabolism [place] [phone] documented in this encounter [facility] 04-04-2024 Note HNO ID: [id number] Author: NUSRAT ALVA APRN.[employer] BUILDER Service: ? Author Type: Nurse Practitioner Type: Progress Notes Filed: 04/04/2024 13:35 Note Text: CC: Patient presents with: Yearly Exam HPI Elsy Dinero is a 53 year old female who presents today for above. Exercise: walks, goes to physical therapy, does home PT exercises Diet: Watches diet for salt (salty snacks, added salt, processed frozen/canned foods), sugary/sweet snacks, unhealthy fats: Yes GERD- Symptoms include heartburn, burning in epigastrum, and reflux Symptoms are precipitated with nothing Alleviated with nothing. Denies cough, wheezing, weight loss, dysphagia, black stools, hematemesis, diarrhea, constipation, and history of PUD, upper GI bleed, and Recinos's esophagus. Alcohol, tobacco, significant amounts of caffeine or NSAIDS: Heavy smoker Previous studies include EGD and sigmoidoscopy. Asthma-daily symptoms during allergy season Nocturnal Symptoms: Yes Asthma is not limiting daily activities or exercise. Current pulmonary medications: albuterol as needed Recent exacerbations: Yes Hirsutism: diagnosed in 2014 with elevated DHEA levels. Treated with Aldactone which she is still taking. Denies side effects. Denies unusual hair growth or breakouts. Would like levels rechecked. Review of Systems Constitutional: Negative for chills, fever and unexpected weight change. Cardiovascular: Negative for chest pain, palpitations and leg swelling. PAST MEDICAL HISTORY No date: Acid reflux 09/14/2011: Acute gastritis without mention of hemorrhage No date: Allergy-induced asthma, mild intermittent, uncomplicated No date: Asthma 05/17/2016: Chronic midline low back pain without sciatica 09/14/2011: Duodenitis No date: Duodenitis without mention of hemorrhage 05/17/2016: Facet arthropathy, lumbar No date: Hemorrhage of gastrointestinal tract, unspecified 09/16/2019: Hirsutism 06/28/2021: Pure hypercholesterolemia 10/02/2016: Recovering alcoholic (HCC) 03/27/2015: Spinal stenosis, lumbar region, without neurogenic claudication 03/03/2022: Suicidal ideation 04/11/2007: Tobacco use disorder 01/07/2022: Vascular occlusion Comment: Intraoperative L common iliac artery occlusion PAST SURGICAL HISTORY 05/17/2022: ARTHROSCOPIC REMOVAL HARDWARE DEEP Comment: removal of iliac screws 09/14/2011: ESOPHAGOGASTRODUODENOSCOPY TRANSORAL DIAGNOSTIC Comment: EGD 01/07/2022: ILIAC REVASC ADD-ON; Left Comment: L Common Iliac Artery endarterectomy 02/23/2022: LUMBAR SPINE FUSION COMBINED Comment: L2 to ilium instrumented fusion, L3, 4 and 5 laminectomy, L2-3, 3-4 and L5-S1 transforaminal lumbar interbody fusion. 01/07/2022: LUMBAR SPINE FUSION,ANTER APPRCH Comment: ALIF L4-L5. 04/29/2012: PAST SURGICAL HISTORY OF Comment: excision of back lump 09/14/2011: SIGMOIDOSCOPY FLX DX W/COLLJ SPEC BR/WA IF PFRMD Comment: Sigmoidoscopy, flexible ALLERGIES Prednisone, Zyban [Bupropion], Cats, Dogs, Niacin, Pollen, Gabapentin, Ciprofloxacin, Grass Pollen, and Trees MEDICATIONS ibuprofen (MOTRIN ORAL) Take 600 mg by mouth three times a day. spironolactone (ALDACTONE) 50 mg tablet Take 1 tablet by mouth two times a day. methocarbamol (ROBAXIN) 750 mg tablet Take 1 tablet by mouth three times a day as needed. docusate sodium (COLACE) 100 mg capsule Take 1 capsule by mouth two times a day. albuterol HFA (PROVENTIL HFA, VENTOLIN HFA) 90 mcg/actuation inhaler Inhale 2 Puffs as instructed every 4 hours as needed for wheezing/shortness of breath. sennosides (SENNACON ORAL) Take 1 tablet by mouth once daily. triamcinolone acetonide (NASACORT AQ NASAL) Use 1 [place] in the nose. qAM as needed for allergies Patient should start on August 29, 2023. fexofenadine (STANLEY) 180 mg tablet Take 180 mg by mouth once daily. famotidine (PEPCID ORAL) Take 20 mg by mouth two times a day. Patient should start on August 29, 2023. Lactobacillus acidophilus (FLORAJEN ACIDOPHILUS) 20 billion cell capsule Take 1 capsule by mouth once daily. acetaminophen (TYLENOL) 500 mg tablet Take 2 tablets by mouth every 8 hours. polyethylene glycol 3350 17 gram packet Take 1 Packet by mouth once daily. Dissolve dose in 4 - 8 ounces of liquid and take as directed. FAMILY HISTORY Problem Relation Age of Onset GI Mother colon polyps Cancer Mother Lung/Uterine/ cervical Allergies Mother GI Father colon polyps Diabetes Father Coronary Artery Disease Father Stents Heart Father age 85 Dementia Father No Known Problems Sister No Known Problems Sister Diabetes Brother Kidney Disease Brother dialysis Heart Failure Brother Allergies Daughter Heart Daughter PDA closure Allergies Daughter Breast Cancer Maternal Grandmother Allergies Maternal Grandfather Breast Cancer Paternal Grandmother Allergies Paternal Grandmother Diabetes Paternal Grandfather Anesthesia Problems No Family History (more content not included)... [facility] 04-04-2024 History of Present illness Narrative CC: Patient presents with: Yearly Exam HPI Elsy Dinero is a 53 year old female who presents today for above. Exercise: walks, goes to physical therapy, does home PT exercises Diet: Watches diet for salt (salty snacks, added salt, processed frozen/canned foods), sugary/sweet snacks, unhealthy fats: Yes GERD- Symptoms include heartburn, burning in epigastrum, and reflux Symptoms are precipitated with nothing Alleviated with nothing. Denies cough, wheezing, weight loss, dysphagia, black stools, hematemesis, diarrhea, constipation, and history of PUD, upper GI bleed, and Recinos's esophagus. Alcohol, tobacco, significant amounts of caffeine or NSAIDS: Heavy smoker Previous studies include EGD and sigmoidoscopy. Asthma-daily symptoms during allergy season Nocturnal Symptoms: Yes Asthma is not limiting daily activities or exercise. Current pulmonary medications: albuterol as needed Recent exacerbations: Yes Hirsutism: diagnosed in 2014 with elevated DHEA levels. Treated with Aldactone which she is still taking. Denies side effects. Denies unusual hair growth or breakouts. Would like levels rechecked. Review of Systems Constitutional: Negative for chills, fever and unexpected weight change. Cardiovascular: Negative for chest pain, palpitations and leg swelling. PAST MEDICAL HISTORY No date: Acid reflux 09/14/2011: Acute gastritis without mention of hemorrhage No date: Allergy-induced asthma, mild intermittent, uncomplicated No date: Asthma 05/17/2016: Chronic midline low back pain without sciatica 09/14/2011: Duodenitis No date: Duodenitis without mention of hemorrhage 05/17/2016: Facet arthropathy, lumbar No date: Hemorrhage of gastrointestinal tract, unspecified 09/16/2019: Hirsutism 06/28/2021: Pure hypercholesterolemia 10/02/2016: Recovering alcoholic (HCC) 03/27/2015: Spinal stenosis, lumbar region, without neurogenic claudication 03/03/2022: Suicidal ideation 04/11/2007: Tobacco use disorder 01/07/2022: Vascular occlusion Comment: Intraoperative L common iliac artery occlusion PAST SURGICAL HISTORY 05/17/2022: ARTHROSCOPIC REMOVAL HARDWARE DEEP Comment: removal of iliac screws 09/14/2011: ESOPHAGOGASTRODUODENOSCOPY TRANSORAL DIAGNOSTIC Comment: EGD 01/07/2022: ILIAC REVASC ADD-ON; Left Comment: L Common Iliac Artery endarterectomy 02/23/2022: LUMBAR SPINE FUSION COMBINED Comment: L2 to ilium instrumented fusion, L3, 4 and 5 laminectomy, L2-3, 3-4 and L5-S1 transforaminal lumbar interbody fusion. 01/07/2022: LUMBAR SPINE FUSION,ANTER APPRCH Comment: ALIF L4-L5. 04/29/2012: PAST SURGICAL HISTORY OF Comment: excision of back lump 09/14/2011: SIGMOIDOSCOPY FLX DX W/COLLJ SPEC BR/WA IF PFRMD Comment: Sigmoidoscopy, flexible ALLERGIES Prednisone, Zyban [Bupropion], Cats, Dogs, Niacin, Pollen, Gabapentin, Ciprofloxacin, Grass Pollen, and Trees MEDICATIONS ibuprofen (MOTRIN ORAL) Take 600 mg by mouth three times a day. spironolactone (ALDACTONE) 50 mg tablet Take 1 tablet by mouth two times a day. methocarbamol (ROBAXIN) 750 mg tablet Take 1 tablet by mouth three times a day as needed. docusate sodium (COLACE) 100 mg capsule Take 1 capsule by mouth two times a day. albuterol HFA (PROVENTIL HFA, VENTOLIN HFA) 90 mcg/actuation inhaler Inhale 2 Puffs as instructed every 4 hours as needed for wheezing/shortness of breath. sennosides (SENNACON ORAL) Take 1 tablet by mouth once daily. triamcinolone acetonide (NASACORT AQ NASAL) Use 1 [place] in the nose. qAM as needed for allergies Patient should start on August 29, 2023. fexofenadine (STANLEY) 180 mg tablet Take 180 mg by mouth once daily. famotidine (PEPCID ORAL) Take 20 mg by mouth two times a day. Patient should start on August 29, 2023. Lactobacillus acidophilus (FLORAJEN ACIDOPHILUS) 20 billion cell capsule Take 1 capsule by mouth once daily. acetaminophen (TYLENOL) 500 mg tablet Take 2 tablets by mouth every 8 hours. polyethylene glycol 3350 17 gram packet Take 1 Packet by mouth once daily. Dissolve dose in 4 - 8 ounces of liquid and take as directed. FAMILY HISTORY Problem Relation Age of Onset GI Mother colon polyps Cancer Mother Lung/Uterine/ cervical Allergies Mother GI Father colon polyps Diabetes Father Coronary Artery Disease Father Stents Heart Father age 85 Dementia Father No Known Problems Sister No Known Problems Sister Diabetes Brother Kidney Disease Brother dialysis Heart Failure Brother Allergies Daughter Heart Daughter PDA closure Allergies Daughter Breast Cancer Maternal Grandmother Allergies Maternal Grandfather Breast Cancer Paternal Grandmother Allergies Paternal Grandmother Diabetes Paternal Grandfather Anesthesia Problems No Family History Anesthesia No Family History Social History Tobacco Use Smoking status: Former Current packs/day: 0.00 Average packs/day: 2.0 packs/day for 38.0 years (76.0 ttl pk-yrs) Types: Cigarettes Start date: 07/10/1985 Quit date: 07/10/2023 Years since quittin.7 Smokeless tobacco: Never Tobacco comments: started age 13. Resumed 1 10/2022 Vaping Use Vaping status: Never Used Substance Use Topics Alcohol use: Not Currently Comment: recovering since 2016. Drug use: Not Currently Comment: experimented in 20s BP 114/72 Pulse 89 Resp 16 Ht 163.5 cm (5' 4.37) Wt 71.1 kg (156 lb 12 oz) LMP 03/02/2015 SpO2 98% BMI 26.60 kg/m Physical Exam Vitals reviewed. Constitutional: Appearance: Normal appearance. HENT: Mouth/Throat: Mouth: Mucous membranes are moist. Pharynx: Oropharynx is clear. Eyes: Conjunctiva/sclera: Conjunctivae normal. Neck: Thyroid: No thyroid mass, thyromegaly or thyroid tenderness. Cardiovascular: Rate and Rhythm: Normal rate and regular rhythm. Pulses: Normal pulses. Heart sounds: Normal heart sounds. No murmur heard. Pulmonary: Effort: Pulmonary effort is normal. Breath sounds: Normal breath sounds. No wheezing, rhonchi or rales. Abdominal: General: There is no distension. Tenderness: There is no abdominal tenderness. Musculoskeletal: Right lower leg: No edema. Left lower leg: No edema. Skin: General: Skin is warm and dry. Neurological: Mental Status: She is alert. Psychiatric: Mood and Affect: Mood normal. Health maintenance reviewed with patient: Depression Screening Never done Anxiety Screening Never done Lung Cancer Screening Never done Cervical Cancer Screening due on 07/05/2022 Influenza Vaccine(1) due on 04/07/2024 Annual PCP Team Chronic Disease Visit due on 08/14/2024 Mammogram Screening due on 12/13/2024 Lipid Screening due on 06/25/2026 Diabetes Screening due on 08/27/2026 Colorectal Cancer Screening due on 08/20/2031 DTaP,Tdap,Td Vaccine(3 - Td or Tdap) due on 08/14/2033 Hepatitis C Screening Completed HIV Screening Completed Shingrix Vaccine Completed Covid-19 Vaccine Completed Pneumococcal Vaccine Completed Hepatitis B Vaccine Discontinued Alpha-1 Antitrypsin Deficiency Screening Discontinued Spirometry Discontinued DATA REVIEWED: Most recent labs ASSESSMENT/PLAN: 1. Wellness examination - ICD9: V70.0, ICD10: Z00.00 (primary diagnosis) - Counseled on healthy diet and regular exercise - Lung cancer screening recommended - Smoking cessation encouraged; discussed risks to health and quitting strategies. Patient is not ready to quit - Follow up for annual exam in one year 2. Hirsutism - ICD9: 704.1, ICD10: L68.0 Taking Aldactone twice a day - CONSULT TO ENDOCRINOLOGY - SPIRONOLACTONE 50 MG TABLET 3. Gastroesophageal reflux disease without esophagitis - ICD9: 530.81, ICD10: K21.9 Intolerant to all PPI's. Continue with Pepcid twice a day - CONSULT TO GASTROENTEROLOGY 4. Pure hypercholesterolemia - ICD9: 272.0, ICD10: E78.00 Recheck - COMPREHENSIVE METABOLIC PANEL - LIPID PANEL BASIC 5. Anemia, unspecified type - ICD9: 285.9, ICD10: D64.9 Recheck - VITAMIN B12 - COMPLETE BLOOD COUNT AND DIFFERENTIAL - FOLATE, SERUM - IRON AND TIBC - FERRITIN 6. Asthma with chronic obstructive pulmonary disease (COPD) (HCC) - ICD9: 493.20, ICD10: J44.89 stable - Avoidance of triggers recommended - ALBUTEROL SULFATE HFA 90 MCG/ACTUATION AEROSOL INHALER 7. Vitamin D deficiency - ICD9: 268.9, ICD10: E55.9 Recheck - VITAMIN D 25 HYDROXY 8. Screening for depression - ICD9: V79.0, ICD10: Z13.31 - DEPRESSION SCREENING 9. Encounter for screening examination for other mental health and behavioral disorders - ICD9: V79.8, ICD10: Z13.39 - ANXIETY SCREENING 10. Encounter for screening for lung cancer - ICD9: V76.0, ICD10: Z12.2 - CONSULT LUNG CANCER SCREENING CLINIC 11. Well woman exam - ICD9: V72.31, ICD10: Z01.419 Due for cervical cancer screening. She also has questions regarding hormone testing - CONSULT TO GYNECOLOGY Prescription instructions reviewed with patient as applicable. Potential red flag symptoms discussed with the patient. Reviewed appropriate action plan to take if red flag symptoms occur. Patient agreeable to treatment plan. Nusrat Alva APRN.[employer] BUILDER documented in this encounter [facility] 04-02-2024 Telephone encounter Note Patient reviewed in [facility] Francesco Nunez MA [facility] 04-02-2024 Miscellaneous Notes Patient reviewed in mychart. Francesco Nunez MA Negative for COVID flu RSV documented in this encounter [facility] 04-02-2024 Telephone encounter Note Negative for COVID flu RSV [facility] Work Phone: 04-01-2024 Note HNO ID: [id number] Author: AFRICA CABA PA Service: ? Author Type: Physician [employer] Type: Progress Notes Filed: 04/01/2024 18:36 Note Text: This note was created using [employer]. Subjective Elsy Dinero is a 53 year old female. HPI 53-year-old female presents for exposure to COVID. Patient states she was exposed to COVID 2 days ago. She does have postnasal drainage and nasal congestion. She states that she has seasonal allergies, so thought it might be due to this, but with exposure, wanted tested for COVID. She has mild cough for about 2 days. No fevers. No vomiting or diarrhea. No chest pain or shortness of breath. She does have history of asthma and uses her inhaler. Has not had to increase inhaler use. No other complaint. PAST MEDICAL HISTORY No date: Acid reflux 09/14/2011: Acute gastritis without mention of hemorrhage No date: Allergy-induced asthma, mild intermittent, uncomplicated No date: Asthma 05/17/2016: Chronic midline low back pain without sciatica 09/14/2011: Duodenitis No date: Duodenitis without mention of hemorrhage 05/17/2016: Facet arthropathy, lumbar No date: Hemorrhage of gastrointestinal tract, unspecified 09/16/2019: Hirsutism 06/28/2021: Pure hypercholesterolemia 10/02/2016: Recovering alcoholic (HCC) 03/27/2015: Spinal stenosis, lumbar region, without neurogenic claudication 03/03/2022: Suicidal ideation 04/11/2007: Tobacco use disorder 01/07/2022: Vascular occlusion Comment: Intraoperative L common iliac artery occlusion PAST SURGICAL HISTORY 05/17/2022: ARTHROSCOPIC REMOVAL HARDWARE DEEP Comment: removal of iliac screws 09/14/2011: ESOPHAGOGASTRODUODENOSCOPY TRANSORAL DIAGNOSTIC Comment: EGD 01/07/2022: ILIAC REVASC ADD-ON; Left Comment: L Common Iliac Artery endarterectomy 02/23/2022: LUMBAR SPINE FUSION COMBINED Comment: L2 to ilium instrumented fusion, L3, 4 and 5 laminectomy, L2-3, 3-4 and L5-S1 transforaminal lumbar interbody fusion. 01/07/2022: LUMBAR SPINE FUSION,ANTER APPRCH Comment: ALIF L4-L5. 04/29/2012: PAST SURGICAL HISTORY OF Comment: excision of back lump 09/14/2011: SIGMOIDOSCOPY FLX DX W/COLLJ SPEC BR/WA IF PFRMD Comment: Sigmoidoscopy, flexible ALLERGIES Prednisone, Zyban [Bupropion], Cats, Dogs, Niacin, Pollen, Gabapentin, Ciprofloxacin, Grass Pollen, and Trees MEDICATIONS spironolactone (ALDACTONE) 50 mg tablet Take 1 tablet by mouth two times a day. methocarbamol (ROBAXIN) 750 mg tablet Take 1 tablet by mouth three times a day as needed. docusate sodium (COLACE) 100 mg capsule Take 1 capsule by mouth two times a day. albuterol HFA (PROVENTIL HFA, VENTOLIN HFA) 90 mcg/actuation inhaler Inhale 2 Puffs as instructed every 4 hours as needed for wheezing/shortness of breath. sennosides (SENNACON ORAL) Take 1 tablet by mouth once daily. triamcinolone acetonide (NASACORT AQ NASAL) Use 1 [place] in the nose. qAM as needed for allergies Patient should start on August 29, 2023. fexofenadine (STANLEY) 180 mg tablet Take 180 mg by mouth once daily. famotidine (PEPCID ORAL) Take 20 mg by mouth two times a day. Patient should start on August 29, 2023. Lactobacillus acidophilus (FLORAJEN ACIDOPHILUS) 20 billion cell capsule Take 1 capsule by mouth once daily. acetaminophen (TYLENOL) 500 mg tablet Take 2 tablets by mouth every 8 hours. polyethylene glycol 3350 17 gram packet Take 1 Packet by mouth once daily. Dissolve dose in 4 - 8 ounces of liquid and take as directed. FAMILY HISTORY Problem Relation Age of Onset GI Mother colon polyps Cancer Mother Lung/Uterine/ cervical Allergies Mother GI Father colon polyps Diabetes Father Coronary Artery Disease Father Stents Heart Father age 85 Dementia Father No Known Problems Sister No Known Problems Sister Diabetes Brother Kidney Disease Brother dialysis Heart Failure Brother Allergies Daughter Heart Daughter PDA closure Allergies Daughter Breast Cancer Maternal Grandmother Allergies Maternal Grandfather Breast Cancer Paternal Grandmother Allergies Paternal Grandmother Diabetes Paternal Grandfather Anesthesia Problems No Family History Anesthesia No Family History Social History Tobacco Use Smoking status: Former Current packs/day: 0.00 Average packs/day: 2.0 packs/day for 38.0 years (76.0 ttl pk-yrs) Types: Cigarettes Start date: 07/10/1985 Quit date: 07/10/2023 Years since quittin.7 Smokeless tobacco: Never Tobacco comments: started age 13. Resumed 1 PPD 10/2022 Vaping Use Vaping status: Never Used Substance Use Topics Alcohol use: Not Currently Comment: recovering since 2016. Drug use: Not Currently Comment: experimented in 20s Review of Systems Constitutional: Negative for chills and fever. HENT: Positive for congestion. Negative for ear pain and sore throat. Respiratory: Positive for cough. Negative for shortness of breath. Cardiovascular: Negative f (more content not included)... [facility] 04-01-2024 History of Present illness Narrative This note was created using [employer]. Subjective Elsy Dinero is a 53 year old female. HPI 53-year-old female presents for exposure to COVID. Patient states she was exposed to COVID 2 days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 Narrative Subjective HPI Nontoxic-appearing female presents urgent care chief complaint sinus pressure ear pressure. Duration of symptoms 3 weeks. Associated symptoms listed above. Was seen here little over a week ago. Placed on Augmentin. Symptoms did not improve or improve completely. Presents today with persistent symptoms. History of sinus infections this feels similar. Has been using antihistamines as this helped a little. Denies any fever body aches chills productive cough chest pain shortness of breath pleuritic pain hemoptysis nausea vomiting abdominal pain change in bowel or bladder habits. Past medical history prescription medication use and allergies reviewed. .Patient presents with: Ear Pain: Bilt ears, sinus congestion, pressure, x 3 weeks PAST MEDICAL HISTORY Diagnosis Date Acid reflux Acute gastritis without mention of hemorrhage 09/14/2011 Allergy-induced asthma, mild intermittent, uncomplicated Asthma Chronic midline low back pain without sciatica 05/17/2016 Duodenitis 09/14/2011 Duodenitis without mention of hemorrhage Facet arthropathy, lumbar 05/17/2016 Hemorrhage of gastrointestinal tract, unspecified Hirsutism 09/16/2019 Pure hypercholesterolemia 06/28/2021 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 Spinal stenosis, lumbar region, without neurogenic claudication 03/27/2015 Suicidal ideation 03/03/2022 Tobacco use disorder 04/11/2007 Vascular occlusion 01/07/2022 Intraoperative L common iliac artery occlusion PAST SURGICAL HISTORY Procedure Laterality Date ARTHROSCOPIC REMOVAL HARDWARE DEEP 05/17/2022 removal of iliac screws ESOPHAGOGASTRODUODENOSCOPY TRANSORAL DIAGNOSTIC 09/14/2011 EGD ILIAC REVASC ADD-ON Left 01/07/2022 L Common Iliac Artery endarterectomy LUMBAR SPINE FUSION COMBINED 02/23/2022 L2 to ilium instrumented fusion, L3, 4 and 5 laminectomy, L2-3, 3-4 and L5-S1 transforaminal lumbar interbody fusion. LUMBAR SPINE FUSION,ANTER [facility] 01/07/2022 ALIF L4-L5. PAST SURGICAL HISTORY OF 04/29/2012 excision of back lump SIGMOIDOSCOPY FLX DX W/COLLJ SPEC BR/WA IF PFRMD 09/14/2011 Sigmoidoscopy, flexible ALLERGIES Prednisone, Zyban [Bupropion], Cats, Dogs, Niacin, Pollen, Gabapentin, Ciprofloxacin, Grass Pollen, and Trees MEDICATIONS methocarbamol (ROBAXIN) 750 mg tablet Take 1 tablet by mouth three times a day as needed. spironolactone (ALDACTONE) 50 mg tablet Take 1 tablet by mouth two times a day. acetaminophen (TYLENOL) 500 mg tablet Take 2 tablets by mouth every 8 hours. docusate sodium (COLACE) 100 mg capsule Take 1 capsule by mouth two times a day. polyethylene glycol 3350 17 gram packet Take 1 Packet by mouth once daily. Dissolve dose in 4 - 8 ounces of liquid and take as directed. albuterol HFA (PROVENTIL HFA, VENTOLIN HFA) 90 mcg/actuation inhaler Inhale 2 Puffs as instructed every 4 hours as needed for wheezing/shortness of breath. sennosides (SENNACON ORAL) Take 1 tablet by mouth once daily. triamcinolone acetonide (NASACORT AQ NASAL) Use 1 [place] in the nose. qAM as needed for allergies Patient should start on August 29, 2023. fexofenadine (STANLEY) 180 mg tablet Take 180 mg by mouth once daily. famotidine (PEPCID ORAL) Take 20 mg by mouth two times a day. Patient should start on August 29, 2023. FAMILY HISTORY Problem Relation Age of Onset GI Mother colon polyps Cancer Mother Lung/Uterine/ cervical Allergies Mother GI Father colon polyps Diabetes Father Coronary Artery Disease Father Stents Heart Father age 85 Dementia Father No Known Problems Sister No Known Problems Sister Diabetes Brother Kidney Disease Brother dialysis Heart Failure Brother Allergies Daughter Heart Daughter PDA closure Allergies Daughter Breast Cancer Maternal Grandmother Allergies Maternal Grandfather Breast Cancer Paternal Grandmother Allergies Paternal Grandmother Diabetes Paternal Grandfather Anesthesia Problems No Family History Anesthesia No Family History Social History Tobacco Use Smoking status: Former Packs/day: 2.00 Years: 38.00 Additional pack years: 0.00 Total pack years: 76.00 Types: Cigarettes Quit date: 07/10/2023 Years since quittin.3 Smokeless tobacco: Never Tobacco comments: started age 13. Resumed 1 10/2022 Vaping Use Vaping Use: Never used Substance Use Topics Alcohol use: Not Currently Comment: recovering since 2016. Drug use: Not Currently Comment: experimented in 20s BP 129/71 Pulse 90 Temp 36.6 C (97.8 F) Resp 20 Wt 74 kg (163 lb 2.3 oz) LMP 03/02/2015 SpO2 98% BMI 27.15 kg/m Review of Systems Constitutional: Negative for chills, fever and malaise/fatigue. HENT: Positive for congestion, ear pain and sinus pain. Negative for ear discharge and sore throat. Eyes: Negative for blurred vision, pain, discharge and redness. Respiratory: Negative for cough, hemoptysis, sputum production, shortness of breath, wheezing and stridor. Cardiovascular: Negative for chest pain. Gastrointestinal: Negative for abdominal pain, diarrhea, nausea and vomiting. Musculoskeletal: Negative for myalgias. Skin: Negative for itching and rash. Neurological: Negative for dizziness and headaches. Objective Physical Exam Constitutional: General: She is not in acute distress. Appearance: She is not diaphoretic. HENT: Head: Normocephalic. Jaw: No trismus, tenderness, swelling or pain on movement. Right Ear: Tympanic membrane, ear canal and external ear normal. Left Ear: Tympanic membrane, ear canal and external ear normal. Nose: Congestion present. Right Sinus: Maxillary sinus tenderness present. Left Sinus: Maxillary sinus tenderness present. Mouth/Throat: Mouth: Mucous membranes are moist. Pharynx: Oropharynx is clear. Uvula midline. No pharyngeal swelling, oropharyngeal exudate, posterior oropharyngeal erythema or uvula swelling. Eyes: Conjunctiva/sclera: Conjunctivae normal. Pupils: Pupils are equal, round, and reactive to light. Cardiovascular: Rate and Rhythm: Normal rate and regular rhythm. Heart sounds: Normal heart sounds. Pulmonary: Effort: Pulmonary effort is normal. No tachypnea, accessory muscle usage or respiratory distress. Breath sounds: Normal breath sounds. No stridor. No wheezing, rhonchi or rales. Abdominal: General: There is no distension. Palpations: Abdomen is soft. Tenderness: There is no abdominal tenderness. There is no guarding or rebound. Musculoskeletal: Cervical back: Normal range of motion and neck supple. No edema, erythema, rigidity or tenderness. No pain with movement. Normal range of motion. Lymphadenopathy: Cervical: No cervical adenopathy. Skin: General: Skin is warm and dry. Neurological: Mental Status: She is alert and oriented to person, place, and time. ASSESSMENT/PLAN: 1. Bacterial sinusitis - ICD9: 473.9, 041.9, ICD10: J32.9, B96.89 Diagnosed with bacterial sinusitis. Placed on Augmentin. Probiotic sent to pharmacy. Risk of [id number] antibiotic use discussed. Patient was educated on supportive therapies. Patient will follow up with primary care provider as needed. Patient was instructed to immediately proceed to emergency room for any new, worsening, or symptoms lasting longer than anticipated. The patient's clinical presentation is otherwise unremarkable at this time. Based on exam and clinical finding, the patient is stable for discharge. Plan of care was discussed with patient. Patient verbalizes understanding and agrees to plan of care. This note was generated using [employer] software. It may contain errors in wording, punctuation, or spelling. Khoi Lopez APRN.FLORENTINO documented in this encounter [facility] 11-14-2023 Miscellaneous Notes Call from patient requesting refill. Requested Prescriptions Pending Prescriptions Disp Refills methocarbamol (ROBAXIN) 750 mg tablet 30 tablet 0 Sig: Take 1 tablet by mouth three times a day as needed. Patient last seen 09-07-23 appt: 12-04-23 Elsy Hill documented in this encounter [facility] 11-12-2023 History of Present illness Narrative This note was created using NoteWriter. Subjective Elsy Dinero is a 53 year old female. 53 year old female with PMH hypercholesteremia, asthma with COPD and acid reflux presents for illness. Acute onset 2 weeks ago +sinus pressure +sinus congestion +ear pressure +ear pain +dental pain +post nasal drainage Denies cough Denies fever or chills Denies SOB or dyspnea Denies abdominal pain The history is provided by the patient. No spanish language lecturer was used. Sinus Problem This is a new problem. The current episode started 1 to 4 weeks ago. The problem occurs constantly. The problem has been gradually worsening. Associated symptoms include congestion and headaches. Pertinent negatives include no abdominal pain, anorexia, arthralgias, change in bowel habit, chest pain, chills, coughing, diaphoresis, fatigue, fever, joint swelling, myalgias, nausea, neck pain, numbness, rash, sore throat, swollen glands, urinary symptoms, vertigo, visual change, vomiting or weakness. Nothing aggravates the symptoms. She has tried nothing for the symptoms. The treatment provided no relief. PAST MEDICAL HISTORY Diagnosis Date Acid reflux Acute gastritis without mention of hemorrhage 09/14/2011 Allergy-induced asthma, mild intermittent, uncomplicated Asthma Chronic midline low back pain without sciatica 05/17/2016 Duodenitis 09/14/2011 Duodenitis without mention of hemorrhage Facet arthropathy, lumbar 05/17/2016 Hemorrhage of gastrointestinal tract, unspecified Hirsutism 09/16/2019 Pure hypercholesterolemia 06/28/2021 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 Spinal stenosis, lumbar region, without neurogenic claudication 03/27/2015 Suicidal ideation 03/03/2022 Tobacco use disorder 04/11/2007 Vascular occlusion 01/07/2022 Intraoperative L common iliac artery occlusion PAST SURGICAL HISTORY Procedure Laterality Date ARTHROSCOPIC REMOVAL HARDWARE DEEP 05/17/2022 removal of iliac screws ESOPHAGOGASTRODUODENOSCOPY TRANSORAL DIAGNOSTIC 09/14/2011 EGD ILIAC REVASC ADD-ON Left 01/07/2022 L Common Iliac Artery endarterectomy LUMBAR SPINE FUSION COMBINED 02/23/2022 L2 to ilium instrumented fusion, L3, 4 and 5 laminectomy, L2-3, 3-4 and L5-S1 transforaminal lumbar interbody fusion. LUMBAR SPINE FUSION,ANTER [facility] 01/07/2022 ALIF L4-L5. PAST SURGICAL HISTORY OF 04/29/2012 excision of back lump SIGMOIDOSCOPY FLX DX W/COLLJ SPEC BR/WA IF PFRMD 09/14/2011 Sigmoidoscopy, flexible ALLERGIES Prednisone, Zyban [Bupropion], Cats, Dogs, Niacin, Pollen, Gabapentin, Ciprofloxacin, Grass Pollen, and Trees MEDICATIONS methocarbamol (ROBAXIN) 750 mg tablet Take 1 tablet by mouth three times a day as needed. spironolactone (ALDACTONE) 50 mg tablet Take 1 tablet by mouth two times a day. acetaminophen (TYLENOL) 500 mg tablet Take 2 tablets by mouth every 8 hours. docusate sodium (COLACE) 100 mg capsule Take 1 capsule by mouth two times a day. albuterol HFA (PROVENTIL HFA, VENTOLIN HFA) 90 mcg/actuation inhaler Inhale 2 Puffs as instructed every 4 hours as needed for wheezing/shortness of breath. sennosides (SENNACON ORAL) Take 1 tablet by mouth once daily. triamcinolone acetonide (NASACORT AQ NASAL) Use 1 [place] in the nose. qAM as needed for allergies Patient should start on August 29, 2023. fexofenadine (STANLEY) 180 mg tablet Take 180 mg by mouth once daily. famotidine (PEPCID ORAL) Take 20 mg by mouth two times a day. Patient should start on August 29, 2023. amoxicillin-clavulanate potassium (AUGMENTIN) 875-125 mg per tablet Take 1 tablet by mouth two times a day for 7 days. polyethylene glycol 3350 17 gram packet Take 1 Packet by mouth once daily. Dissolve dose in 4 - 8 ounces of liquid and take as directed. (Patient not taking: Reported on 11/12/2023) FAMILY HISTORY Problem Relation Age of Onset GI Mother colon polyps Cancer Mother Lung/Uterine/ cervical Allergies Mother GI Father colon polyps Diabetes Father Coronary Artery Disease Father Stents Heart Father age 85 Dementia Father No Known Problems Sister No Known Problems Sister Diabetes Brother Kidney Disease Brother dialysis Heart Failure Brother Allergies Daughter Heart Daughter PDA closure Allergies Daughter Breast Cancer Maternal Grandmother Allergies Maternal Grandfather Breast Cancer Paternal Grandmother Allergies Paternal Grandmother Diabetes Paternal Grandfather Anesthesia Problems No Family History Anesthesia No Family History Social History Tobacco Use Smoking status: Former Packs/day: 2.00 Years: 38.00 Additional pack years: 0.00 Total pack years: 76.00 Types: Cigarettes Quit date: 07/10/2023 Years since quittin.3 Smokeless tobacco: Never Tobacco comments: started age 13. Resumed 10/2022 Vaping Use Vaping Use: Never used Substance Use Topics Alcohol use: Not Currently Comment: recovering since 2017. Drug use: Not Currently Comment: experimented in 20s Review of Systems Constitutional: Negative for chills, diaphoresis, fatigue and fever. HENT: Positive for congestion, ear pain, postnasal drip, sinus pressure and sinus pain. Negative for sore throat. Eyes: Negative for pain, discharge and itching. Respiratory: Negative for apnea, cough and chest tightness. Cardiovascular: Negative for chest pain. Gastrointestinal: Negative for abdominal pain, anorexia, change in bowel habit, nausea and vomiting. Musculoskeletal: Negative for arthralgias, joint swelling, myalgias and neck pain. Skin: Negative for color change, pallor and rash. Allergic/Immunologic: Negative for environmental allergies, food allergies and immunocompromised state. Neurological: Positive for headaches. Negative for vertigo, weakness and numbness. Hematological: Negative for adenopathy. Does not bruise/bleed easily. Psychiatric/Behavioral: Negative for agitation and behavioral problems. Objective BP 122/66 Pulse 116 Temp 37.1 C (98.8 F) Resp 18 Wt 76 kg (167 lb 8.8 oz) LMP 03/02/2015 SpO2 99% BMI 27.88 kg/m Physical Exam Vitals and nursing note reviewed. Constitutional: General: She is not in acute distress. Appearance: Normal appearance. She is normal weight. She is not ill-appearing, toxic-appearing or diaphoretic. HENT: Head: Normocephalic and atraumatic. Comments: +frontal sinus pressure +maxillary sinus pressure Right Ear: Ear canal and external ear normal. Left Ear: Ear canal and external ear normal. Ears: Comments: Bilateral TM's erythematous , but not bulging Nose: Congestion present. No rhinorrhea. Mouth/Throat: Mouth: Mucous membranes are moist. Pharynx: Posterior oropharyngeal erythema present. No oropharyngeal exudate. Eyes: General: Right eye: No discharge. Left eye: No discharge. Extraocular Movements: Extraocular movements intact. Conjunctiva/sclera: Conjunctivae normal. Pupils: Pupils are equal, round, and reactive to light. Cardiovascular: Rate and Rhythm: Normal rate and regular rhythm. Pulses: Normal pulses. Heart sounds: Normal heart sounds. No murmur heard. No friction rub. Pulmonary: Effort: Pulmonary effort is normal. No respiratory distress. Breath sounds: Normal breath sounds. No stridor. No wheezing, rhonchi or rales. Chest: Chest wall: No tenderness. Abdominal: General: Abdomen is flat. There is no distension. Palpations: Abdomen is soft. There is no mass. Tenderness: There is no abdominal tenderness. There is no right CVA tenderness, left CVA tenderness, guarding or rebound. Hernia: No hernia is present. Musculoskeletal: General: No swelling, tenderness, deformity or signs of injury. Normal range of motion. Cervical back: Normal range of motion and neck supple. No rigidity. Right lower leg: No edema. Left lower leg: No edema. Lymphadenopathy: Cervical: Cervical adenopathy present. Skin: General: Skin is warm and dry. Capillary Refill: Capillary refill takes less than 2 seconds. Coloration: Skin is not jaundiced or pale. Findings: No bruising, erythema, lesion or rash. Neurological: General: No focal deficit present. Mental Status: She is alert and oriented to person, place, and time. Cranial Nerves: No cranial nerve deficit. Sensory: No sensory deficit. Motor: No weakness. Coordination: Coordination normal. Gait: Gait normal. Psychiatric: Mood and Affect: Mood normal. Behavior: Behavior normal. Thought Content: Thought content normal. Judgment: Judgment normal. Assessment and Plan ASSESSMENT/PLAN: 1. Rhinosinusitis - ICD9: 473.9, ICD10: J32.9 - Will begin treatment with as per antibiotic as written, see orders - The patient should also be given OTC cough and cold meds as needed, warm salt water gargles, throat lozenges and/or OTC throat spray as needed, and nasal saline gtts and suction prn for the first 5-7 days of treatment. - Supportive care with plenty of fluids, rest, and analgesia prn. - Follow up in 3-5 days if symptoms persist or worsen. Tamika Roca APRN.[employer] documented in this encounter [facility] 10-17-2023 Miscellaneous Notes Patient calling states since having PT she has been experiencing a lot of spasms on her left leg, numbness on 3 of her toes. Really needs to take the Robaxin until her follow-up appointment. Please call [phone] documented in this encounter [facility] 09-25-2023 Miscellaneous Notes Forms printed for review. Awaiting signature. Received PT Plan of Care by fax from [facility]. Scanned to chart for review. documented in this encounter [facility] 09-18-2023 Miscellaneous Notes SITUATION: only patient present during today's visit. patient reports the following since the last homecare visit: medications/allergies--no changes, no fall. patient reports she is doing okwell and is returning to all of her care at home imdependently. She is anxious to start OP PT/pool therapy. BACKGROUND: Diagnoses (reason for Home Care): status post L2-S1 revision fusion, right L4 foraminotomy, L5-S1 TLIF on 08/23/23 at [facility]. D/C on 08/27/23. Weight Bearing/Precaution Changes: no changes ASSESSMENT: Focus of visit: reassessment /discharge Physical therapy discharged: goals achieved. Functional performance at discharge - bed mobility independent, transfers independent, ambulation independent and stairs independent. Plan of care, goals, and discharge reviewed and agreed upon with patient and/or caregiver. RECOMMENDATION: Patient discharged from home health services. Instructions to include:home exercise program as directed See intervention summary for intervention/education details. documented in this encounter [facility] 09-13-2023 Miscellaneous Notes We cannot schedule patients OP Pt at [facility] with them having the order first. Can you please fax order to [phone]? Thank you. documented in this encounter [facility] 09-12-2023 Miscellaneous Notes Forms printed for review. Awaiting signature. Received PT order by fax from Home Care. Scanned to chart for physician signature. documented in this encounter [facility] 09-12-2023 Miscellaneous Notes Patient is planning on going to OP PT facility that is not a [facility] facility. Can you please mail her an order for OP PT? Thanks documented in this encounter [facility] 09-12-2023 Miscellaneous Notes SITUATION: only patient present during today's visit. patient reports the following since the last homecare visit: medications/allergies--no changes, no fall. patient reports she is doing ok. Mom went home so she is doing more for herself. Got regina out last week and is anxious to start OP PT/pool therapy. BACKGROUND: Diagnoses (reason for Home Care): status post L2-S1 revision fusion, right L4 foraminotomy, L5-S1 TLIF on 08/23/23 at [facility]. D/C on 08/27/23. Weight Bearing/Precaution Changes: no changes ASSESSMENT: Focus of visit progressed core strengthening for HEP. Denies increased pain. Ind w/ home mobility, using rollator for outdoor/community distances. Patient is calling to schedule OP PT at [facility] due to them having a therapy pool Plan of care, goals, and visit frequency reviewed and agreed upon with patient and/or caregiver. Current Discharge Plan: outpatient rehab Anticipate discharge by 09/18/23 RECOMMENDATION: Next visit to focus on PT to see for DC See intervention summary for intervention/education details. documented in this encounter [facility] 08-27-2023 Note HNO ID: [id number] Author: RUTHY STOUT APRN.CNP Service: Neurosurgery Author Type: Nurse Practitioner Type: Plan of Care Filed: 08/27/2023 13:41 Note Text: Elsy Dinero has been under my care as an inpatient for acute pain. An OARRS report for this patient has been reviewed during the inpatient hospital stay. The diagnosis requiring narcotic pain medication is status post L2-S1 revision fusion, right L4 foraminotomy, L5-S1 TLIF. Patient will require an opioid prescription at discharge that will exceed 30 MED: Trials of non-opiate alternatives have not provided adequate analgesia. Yes The patient's current condition has required opioid dosing as an inpatient beyond 30 MED to provide adequate analgesia. Yes The patient has a pre-existing chronic pain or chronic opioid use history that necessitates doses beyond the 30 MED limit. No The patient's pain is expected to be severe and persistent enough to require opioid prescription beyond the 7-day recommended limit. No This patient will follow up with Neurosurgery on 09/07/23 as an outpatient for further evaluation and treatment. Ruthy Stout APRN.FLORENTINO August 27, 2023 @ 1:41 PM [facility] 08-27-2023 Miscellaneous Notes Piedad there! (Spoke with: patient ) My name is Nat Neely LPN and I'm calling from [facility]. Your doctor wants to make sure you have the best care at home after leaving the hospital. Do you have a few minutes to chat about what to expect from home care? yes Before we start, have you received help from a home care company in the last 60 days? They might have assisted with things like bathing, medication, checking your blood pressure, or exercises. no Our goal is to make your transition home smooth. A nurse (pick one- nurse or therapist ) will visit you within 2 days of leaving the hospital to get you started with home care. Is that okay with you? yes They'll contact you the night before or the morning of the visit to tell you when they'll arrive. Would you like them to call or text you? [phone]-Call Great! What address will we be seeing you at? [address] [place] [address] [place] [address] Do you have any upcoming appointments or things we need to schedule around? no When they call or text, the number might be unfamiliar or blocked. If they leave a message, please reply so we can plan your visit. Homecare helps with your recovery. During the first visit, the therapy (pick one- nurse or therapist) will talk with you, set goals, and plan your care. This visit might take one and a half to three hours. They'll figure out which services you need and how often they will see you. The purpose of homecare is to teach you or a family member or friend to manage your condition and provide any ordered treatments. Do you have someone to assist you at home? no They'll need to see your discharge instructions and medication bottles for any medications you are taking, both prescription and over the counter. Can you have those ready? yes Any questions so far? no We understand it's not easy having new people in your home while you're recovering. Our caregivers will treat you with dignity and respect, and we ask the same in return. The safety of our patients and caregivers is important to us. We ask that you put away and secure any animals or weapons in the home prior to our caregivers arriving. We also ask that you, or anyone else in the home, are not under the influence of any substances, refrain from raising your voice, using profanity, or being threatening or aggressive during visits. If you don't have questions, I have just one more. Did you get a flu shot this year? yes Where did you get it? Health department Left requesting a call back for confirmation documented in this encounter [facility] 08-27-2023 Miscellaneous Notes Elvin Diaz MD Please advise if you are agreeable to signing and following for C services? Our Clinicians will be sending the Plan of Care to you for review and approval. They will reach out for any appropriate orders required to provide home care services for the patient. We are not able to initiate HHC services without a following provider. Home care clinicians may also obtain orders from [facility] Providers Thank you and we would be happy to answer any questions. Nat Neely LPN 08/27/2023 9:20 AM documented in this encounter [facility] 08-26-2023 Note HNO ID: [id number] Author: RUTHY STOUT APRN.CNP Service: Neurosurgery Author Type: Nurse Practitioner Type: Progress Notes Filed: 08/26/2023 16:05 Note Text: NEUROSURGERY POST OP PROGRESS NOTE SERVICE DATE: August 26, 2023 SERVICE TIME: 4:00 PM POST OP DAY: #3 SUBJECTIVE Patient states that the preoperative symptoms of RLE radiculopathy are slightly improved since surgery. Her pain is adequately controlled on her oral medications. She denies new weakness, numbness, or tingling. She denies fevers, chest pain, SOB, or N/V. She is voiding well and passing flatus. MIKE drain remains with output decreasing. OBJECTIVE BP (!) 105/48 Pulse 86 Temp 36.9 ?C (98.4 ?F) (Oral) Resp 16 Ht 165.1 cm (5' 5) Wt 75.3 kg (166 lb) LMP 03/02/2015 SpO2 97% BMI 27.62 kg/m? GENERAL: Alert, cooperative, and pleasant in no distress. Appears well-developed and well-nourished. LUNGS: Lungs clear to auscultation, no wheezing or rales noted. Good diaphragmatic excursion. CARDIAC: Normal S1 and S2; no rubs, murmurs, or gallops. ABDOMEN: Soft, NTND, BS normal x4. EXTREMITIES: Bilateral lower extremities with 5/5 strength intact. NEURO: Alert and oriented to person, place, and time. Sensation and cognition intact. Incision: CDI. Drain: serosanguineous output is 230ml/24hrs. Current Facility-Administered Medications Medication Dose Route Frequency NaCl 0.9% iv flush bag 20 mL INTRAVENOUS PRN sodium chloride 0.9 % (flush) 3-5 mL (BD POSIFLUSH) 3-5 mL INTRAVENOUS q 12 H lactated ringers iv infusion 50 mL/hr INTRAVENOUS CONTINUOUS oxyCODONE-acetaminophen 5-325 mg 1-2 tablet (PERCOCET) 1-2 tablet ORAL q 6 H PRN HYDROmorphone (PF) 0.5 mg injection (DILAUDID) 0.5 mg INTRAVENOUS q 3 H PRN keTORolac 15 mg injection (TORADOL) 15 mg INTRAVENOUS q 6 H cyclobenzaprine 10 mg tab(s) (FLEXERIL) 10 mg ORAL TID ondansetron 4 mg tab(s) (ZOFRAN) 4 mg ORAL q 6 H PRN Or ondansetron (PF) 4 mg injection (ZOFRAN) 4 mg INTRAVENOUS q 6 H PRN docusate sodium 100 mg cap(s) (COLACE) 100 mg ORAL BID [START ON 04/08/2022] bisacodyl 10 mg suppository (DULCOLAX) 10 mg RECTAL DAILY PRN thyroid 60 mg tab(s) 60 mg ORAL DAILY (6 AM) progesterone micronized 200 mg cap(s) (PROMETRIUM) 200 mg ORAL AT BEDTIME gabapentin 600 mg cap(s) (NEURONTIN) 600 mg ORAL TID DULoxetine 60 mg cap(s) (CYMBALTA) 60 mg ORAL AT BEDTIME ASSESSMENT AND PLAN Elsy Dinero is a 53 year old female status post L2-S1 revision fusion, right L4 foraminotomy, L5-S1 TLIF on 08/23/[address] Birch. -Most recent labs and imaging results reviewed. -Strength is 5/5 in all extremities -Dressing clean, dry, and intact -MIKE drain intact, continue to monitor output and likely remove tomorrow -Recommend increasing activity and PT/OT consult -Incentive spirometry, MARKY hose, SCDs, and Heparin SC -Post-operative pain control, pain management following, continue oral regimen -Postop XR completed today -Medicine consult for post-operative medical management -Discharge planning, anticipate discharge home with [facility] tomorrow pending MIKE drain output Plan of care discussed via phone with Dr. Greg Pang covering for Dr. Birch. Medication and Non-Pharmacologic VTE Prophylaxis/Anticoagulants 04/06/22 1215 vte pharmacologic prophylaxis contraindicated (ca,oh) 04/06/22 1215 pneumatic compression stockings (ca,oh) 04/06/22 1215 activity - mobilize patient (ca,wv) VTE Prophylaxis: VTE prophylaxis appropriate SIGNATURE: Ruthy Stout APRN.[employer] DATE: August 26, 2023 TIME: 4:05 PM I spent a total of 35 minutes on the date of the service which included preparing to see the patient, [id number] patient care, completing clinical documentation, obtaining and/or reviewing separately obtained history, performing a medically appropriate examination, counseling and educating the patient/family/caregiver, ordering medications, tests, or procedures, communicating with other HCPs (not separately reported), independently interpreting results (not separately reported), communicating results to the patient/family/caregiver, and care coordination (not separately reported). [facility] 08-26-2023 Note HNO ID: [id number] Author: SHAW KINSEY MD Service: General Internal Medicine Author Type: Physician Type: Progress Notes Filed: 08/26/2023 12:22 Note Text: PROGRESS NOTE - INTERNAL MEDICINE PATIENT NAME: Elsy Dinero SERVICE DATE: August 26, 2023 SERVICE TIME: 12:21 PM PCP: Elvin Diaz MD ADMITTING PHYSICIAN: Ambrose Birch MD MD INTERVAL HISTORY OF PRESENT ILLNESS: pt seen denied cp/ sob no weakness REVIEW OF SYSTEMS: GENERAL: No weight loss, malaise or fevers RESPIRATORY: Negative for cough, hemoptysis, wheezing, COPD, dyspnea or shortness of breath CARDIOVASCULAR: Negative for chest pain, leg swelling, hypertension, CHF or palpitations GI: No nausea, vomiting, or diarrhea : No history of dysuria, frequency or incontinence PSYCH: Negative for sleep disturbance, mood disorder and recent psychosocial stressors. ENDOCRINE: Negative for cold or heat intolerance, polyuria, polydipsia and goiter All other reviewed and negative other than HPI. PRIOR TO ADMISSION MEDICATIONS: Acetaminophen 500 mg cap, Take 1,000 mg by mouth., Disp: , Rfl: , 08/23/2023 spironolactone (ALDACTONE) 50 mg tablet, Take 1 tablet by mouth two times a day., Disp: 60 tablet, Rfl: 5, 08/23/2023 at 0800 sennosides (SENNACON ORAL), Take 1 tablet by mouth once daily., Disp: , Rfl: , 08/23/2023 at 0800 diphenhydramine HCl (BENADRYL ALLERGY ORAL), Take by mouth. 2 tablets qhs, Disp: , Rfl: , 08/22/2023 triamcinolone acetonide (NASACORT AQ NASAL), Use 1 [place] in the nose. qAM as needed, Disp: , Rfl: , 08/23/2023 at 0800 docusate sodium (COLACE) 100 mg capsule, Take 1 capsule by mouth twice daily., Disp: , Rfl: , 08/23/2023 at 0800 fexofenadine (STANLEY) 180 mg tablet, Take 180 mg by mouth once daily., Disp: , Rfl: , 08/23/2023 famotidine (PEPCID ORAL), Take 1 tablet by mouth twice daily., Disp: , Rfl: , 08/23/2023 albuterol HFA (PROVENTIL HFA, VENTOLIN HFA) 90 mcg/actuation inhaler, Inhale 2 Puffs as instructed every 4 hours as needed for wheezing/shortness of breath., Disp: 1 Each, Rfl: 5, Unknown INs AND OUT SUMMARY: Intake/Output Summary (Last 24 hours) at 08/26/2023 1221 Last data filed at 08/26/2023 0722 Gross per 24 hour Intake -- Output 2630 ml Net -2630 ml PHYSICAL EXAM: Patient Vitals for the past 24 hrs: BP Temp Temp src Pulse Resp SpO2 08/26/23 1152 (!) 105/48 36.9 ?C (98.4 ?F) Oral 86 16 97 % 08/26/23 0448 116/72 -- -- -- -- -- 08/26/23 044 (!) 90/40 36.7 ?C (98.1 ?F) Oral 80 16 97 % 08/26/23 0038 (!) 114/47 37 ?C (98.6 ?F) Oral 84 18 99 % 08/25/232043 (!) 102/42 -- -- 86 -- -- 08/25/23 1642 100/50 36.9 ?C (98.4 ?F) Oral 88 18 92 % GENERAL: Alert, no distress, cooperative SKIN: Skin color, texture, turgor normal. No rashes or lesions. NECK: No jugulovenous distention, No carotid bruits, Carotid pulse normal contour, Supple LUNGS: Lungs clear to auscultation. Good diaphragmatic excursion. CARDIAC: Normal S1 and S2; no rubs, murmurs, or gallops ABDOMEN: Abdomen soft, non-tender. BS normal. No masses or organomegaly. EXTREMETIES: Extremities normal. No deformities, edema, clubbing or skin discoloration. NEURO: Alert, oriented X 3, Cranial nerves II-XII intact, Gait normal. Reflexes normal and symmetric. Sensation grossly intact. PULSES: 2+ radial, 2+ carotid DATA: CBC, Coags, BMP, Mg, Phos Recent Labs 08/26/23 0600 08/25/23 0933 08/24/23 0543 WBC 7.92 8.67 8.48 HB 8.9* 9.1* 10.0* HCT 26.9* 27.8* 31.4* PLT 169 178 216 NA 135* 135* 139 K 4.0 4.1 4.7 CHLOR 98 98 103 CO2 28 30 25 BUN 8 7 13 CREAT 0.62 0.66 0.74 GLUC 122* 136* 112* CA 8.3* 8.1* 8.4* CSF AND Dilantin Liver Function, Amylase, AND Lipase IMAGING Reviewed and discussed with the patient. IN-PATIENT MEDICATIONS: Current Facility-Administered Medications Medication Dose Route Frequency albuterol HFA 90 mcg/actuation 2 Puff (PROVENTIL HFA, VENTOLIN HFA) 2 Puff INHALATION q 4 H PRN docusate sodium 100 mg cap(s) (COLACE) 100 mg ORAL BID NaCl 0.9% iv infusion 75 mL/hr INTRAVENOUS CONTINUOUS ondansetron 4 mg tab(s) (ZOFRAN) 4 mg ORAL q 6 H PRN Or ondansetron (PF) 4 mg injection (ZOFRAN) 4 mg INTRAVENOUS q 6 H PRN methocarbamol 750 mg tab(s) (ROBAXIN) 750 mg ORAL TID PRN acetaminophen 1,000 mg tab(s) (TYLENOL) 1,000 mg ORAL q 8 H heparin 5,000 Units injection 5,000 Units SUBCUTANEOUS q 12 H polyethylene glycol 3350 17 g packet 17 g ORAL BID oxyCODONE IR 5-10 mg tab(s) (ROXICODONE) 5-10 mg ORAL q 3 H PRN HYDROmorphone 0.2 mg injection (DILAUDID) 0.2 mg INTRAVENOUS q 3 H PRN famotidine 20 mg tab(s) (PEPCID) 20 mg ORAL BID senna 8.6 mg tab(s) (SENOKOT) 8.6 mg ORAL BID PROBLEM LIST: ACTIVE PROBLEM LIST Tobacco Abuse Spinal Stenosis, Lumbar Region With Neurogenic Claudication Acid Reflux Hirsutism Pure Hypercholesterolemia Lumbar Stenosis With Neurogenic Claudication Status Post Lumbar Spinal Fusion History of Dvt ( (more content not included)... [facility] 08-25-2023 Note HNO ID: [id number] Author: RUTHY STOUT APRN.[employer] Service: Neurosurgery Author Type: Nurse Practitioner Type: Progress Notes Filed: 08/25/2023 17:18 Note Text: NEUROSURGERY POST OP PROGRESS NOTE SERVICE DATE: August 25, 2023 SERVICE TIME: 5:12 PM POST OP DAY: #2 SUBJECTIVE Patient states that the preoperative symptoms of RLE radiculopathy are improved since surgery. Dilaudid POSTAL WORKER stopped and started on oral medications with adequate control. She denies new weakness, numbness, or tingling. She denies fevers, chest pain, SOB, or N/V. Tracey removed and awaiting void. She is passing flatus. MIKE drain remains for high output. OBJECTIVE BP 100/50 Pulse 88 Temp 36.9 ?C (98.4 ?F) (Oral) Resp 18 Ht 165.1 cm (5' 5) Wt 75.3 kg (166 lb) LMP 03/02/2015 SpO2 92% BMI 27.62 kg/m? GENERAL: Alert, cooperative, and pleasant in no distress. Appears well-developed and well-nourished. LUNGS: Lungs clear to auscultation, no wheezing or rales noted. Good diaphragmatic excursion. CARDIAC: Normal S1 and S2; no rubs, murmurs, or gallops. ABDOMEN: Soft, NTND, BS normal x4. EXTREMITIES: Bilateral lower extremities with 5/5 strength intact. NEURO: Alert and oriented to person, place, and time. Sensation and cognition intact. Incision: [place] intact with no dehiscence or drainage noted. Drain: serosanguineous output is 340ml/24hrs. Tracey: Removed. Current Facility-Administered Medications Medication Dose Route Frequency NaCl 0.9% iv flush bag 20 mL INTRAVENOUS PRN sodium chloride 0.9 % (flush) 3-5 mL (BD POSIFLUSH) 3-5 mL INTRAVENOUS q 12 H lactated ringers iv infusion 50 mL/hr INTRAVENOUS CONTINUOUS oxyCODONE-acetaminophen 5-325 mg 1-2 tablet (PERCOCET) 1-2 tablet ORAL q 6 H PRN HYDROmorphone (PF) 0.5 mg injection (DILAUDID) 0.5 mg INTRAVENOUS q 3 H PRN keTORolac 15 mg injection (TORADOL) 15 mg INTRAVENOUS q 6 H cyclobenzaprine 10 mg tab(s) (FLEXERIL) 10 mg ORAL TID ondansetron 4 mg tab(s) (ZOFRAN) 4 mg ORAL q 6 H PRN Or ondansetron (PF) 4 mg injection (ZOFRAN) 4 mg INTRAVENOUS q 6 H PRN docusate sodium 100 mg cap(s) (COLACE) 100 mg ORAL BID [START ON 04/08/2022] bisacodyl 10 mg suppository (DULCOLAX) 10 mg RECTAL DAILY PRN thyroid 60 mg tab(s) 60 mg ORAL DAILY (6 AM) progesterone micronized 200 mg cap(s) (PROMETRIUM) 200 mg ORAL AT BEDTIME gabapentin 600 mg cap(s) (NEURONTIN) 600 mg ORAL TID DULoxetine 60 mg cap(s) (CYMBALTA) 60 mg ORAL AT BEDTIME ASSESSMENT AND PLAN Elsy Dinero is a 53 year old female status post L2-S1 revision fusion, right L4 foraminotomy, L5-S1 TLIF on 08/23/[address] Birch. -Most recent labs and imaging results reviewed. -Strength is 5/5 in all extremities -Dressing clean, dry, and intact -MIKE drain intact, continue to monitor output and likely remove tomorrow -Tracey catheter removed, await void -Recommend increasing activity and PT/OT consult -Incentive spirometry, MARKY hose, SCDs, Heparin SC to start on POD #2 -Post-operative pain control, pain management following, Alicjaid POSTAL WORKER discontinued and started oral regimen -Check postop XR tomorrow -Medicine consult for post-operative medical management -Discharge planning, anticipate discharge home with [facility] in 1-2 more days. Plan of care discussed with Dr. Birch via phone and video conference. Medication and Non-Pharmacologic VTE Prophylaxis/Anticoagulants 04/06/22 1215 vte pharmacologic prophylaxis contraindicated (ca,oh) 04/06/22 1215 pneumatic compression stockings (ca,oh) 04/06/22 1215 activity - mobilize patient (ca,wv) VTE Prophylaxis: VTE prophylaxis appropriate SIGNATURE: Ruthy Stout APRN.[employer] DATE: August 25, 2023 TIME: 5:18 PM [facility] 08-25-2023 Note HNO ID: [id number] Author: SHAW KINSEY MD Service: General Internal Medicine Author Type: Physician Type: Progress Notes Filed: 08/25/2023 12:23 Note Text: PROGRESS NOTE - INTERNAL MEDICINE PATIENT NAME: Elsy Dinero SERVICE DATE: August 25, 2023 SERVICE TIME: 12:19 PM PCP: Elvin Diaz MD ADMITTING PHYSICIAN: Ambrose Birch MD MD INTERVAL HISTORY OF PRESENT ILLNESS: pt seen denied cp/ sob no weakness REVIEW OF SYSTEMS: GENERAL: No weight loss, malaise or fevers RESPIRATORY: Negative for cough, hemoptysis, wheezing, COPD, dyspnea or shortness of breath CARDIOVASCULAR: Negative for chest pain, leg swelling, hypertension, CHF or palpitations GI: No nausea, vomiting, or diarrhea : No history of dysuria, frequency or incontinence PSYCH: Negative for sleep disturbance, mood disorder and recent psychosocial stressors. ENDOCRINE: Negative for cold or heat intolerance, polyuria, polydipsia and goiter All other reviewed and negative other than HPI. PRIOR TO ADMISSION MEDICATIONS: Acetaminophen 500 mg cap, Take 1,000 mg by mouth., Disp: , Rfl: , 08/23/2023 spironolactone (ALDACTONE) 50 mg tablet, Take 1 tablet by mouth two times a day., Disp: 60 tablet, Rfl: 5, 08/23/2023 at 0800 sennosides (SENNACON ORAL), Take 1 tablet by mouth once daily., Disp: , Rfl: , 08/23/2023 at 0800 diphenhydramine HCl (BENADRYL ALLERGY ORAL), Take by mouth. 2 tablets qhs, Disp: , Rfl: , 08/22/2023 triamcinolone acetonide (NASACORT AQ NASAL), Use 1 [place] in the nose. qAM as needed, Disp: , Rfl: , 08/23/2023 at 0800 docusate sodium (COLACE) 100 mg capsule, Take 1 capsule by mouth twice daily., Disp: , Rfl: , 08/23/2023 at 0800 fexofenadine (STANLEY) 180 mg tablet, Take 180 mg by mouth once daily., Disp: , Rfl: , 08/23/2023 famotidine (PEPCID ORAL), Take 1 tablet by mouth twice daily., Disp: , Rfl: , 08/23/2023 albuterol HFA (PROVENTIL HFA, VENTOLIN HFA) 90 mcg/actuation inhaler, Inhale 2 Puffs as instructed every 4 hours as needed for wheezing/shortness of breath., Disp: 1 Each, Rfl: 5, Unknown INs AND OUT SUMMARY: Intake/Output Summary (Last 24 hours) at 08/25/2023 1219 Last data filed at 08/25/2023 0449 Gross per 24 hour Intake -- Output 6140 ml Net -6140 ml PHYSICAL EXAM: Patient Vitals for the past 24 hrs: BP Temp Temp src Pulse Resp SpO2 08/25/23 0927 (!) 107/48 -- -- 88 -- 98 % 08/25/23 0455 112/60 -- -- -- -- -- 08/25/23 0449 (!) 110/46 36.7 ?C (98.1 ?F) Oral 81 18 88 % 08/25/23 0206 -- -- -- -- 16 -- 08/25/236 -- -- -- -- 18 97 % 08/25/23 0049 116/81 -- -- -- -- -- 08/25/23 0046 (!) 92/37 36.6 ?C (97.9 ?F) Oral 100 18 92 % 08/24/232138 -- -- -- -- 14 -- 08/24/232038 -- -- -- -- 18 92 % 08/24/232033 (!) 129/43 37.9 ?C (100.2 ?F) -- 100 -- 93 % 08/24/23 1524 116/52 36.6 ?C (97.9 ?F) Axillary 90 18 100 % GENERAL: Alert, no distress, cooperative SKIN: Skin color, texture, turgor normal. No rashes or lesions. NECK: No jugulovenous distention, No carotid bruits, Carotid pulse normal contour, Supple LUNGS: Lungs clear to auscultation. Good diaphragmatic excursion. CARDIAC: Normal S1 and S2; no rubs, murmurs, or gallops ABDOMEN: Abdomen soft, non-tender. BS normal. No masses or organomegaly. EXTREMETIES: Extremities normal. No deformities, edema, clubbing or skin discoloration. NEURO: Alert, oriented X 3, Cranial nerves II-XII intact, Gait normal. Reflexes normal and symmetric. Sensation grossly intact. PULSES: 2+ radial, 2+ carotid DATA: CBC, Coags, BMP, Mg, Phos Recent Labs 08/25/23 0933 08/24/23 0543 WBC 8.67 8.48 HB 9.1* 10.0* HCT 27.8* 31.4* PLT 178 216 NA 135* 139 K 4.1 4.7 CHLOR 98 103 CO2 30 25 BUN 7 13 CREAT 0.66 0.74 GLUC 136* 112* CA 8.1* 8.4* Liver Function, Amylase, AND Lipase IMAGING Reviewed and discussed with the patient. IN-PATIENT MEDICATIONS: Current Facility-Administered Medications Medication Dose Route Frequency albuterol HFA 90 mcg/actuation 2 Puff (PROVENTIL HFA, VENTOLIN HFA) 2 Puff INHALATION q 4 H PRN docusate sodium 100 mg cap(s) (COLACE) 100 mg ORAL BID NaCl 0.9% iv infusion 75 mL/hr INTRAVENOUS CONTINUOUS ondansetron 4 mg tab(s) (ZOFRAN) 4 mg ORAL q 6 H PRN Or ondansetron (PF) 4 mg injection (ZOFRAN) 4 mg INTRAVENOUS q 6 H PRN methocarbamol 750 mg tab(s) (ROBAXIN) 750 mg ORAL TID PRN acetaminophen 1,000 mg tab(s) (TYLENOL) 1,000 mg ORAL q 8 H heparin 5,000 Units injection 5,000 Units SUBCUTANEOUS q 12 H polyethylene glycol 3350 17 g packet 17 g ORAL BID oxyCODONE IR 5-10 mg tab(s) (ROXICODONE) 5-10 mg ORAL q 3 H PRN HYDROmorphone 0.2 mg injection (DILAUDID) 0.2 mg INTRAVENOUS q 3 H PRN famotidine 20 mg tab(s) (PEPCID) 20 mg ORAL BID senna 8.6 mg tab(s) (SENOKOT) 8.6 mg ORAL BID PROBLEM LIST: ACTIVE PROBLEM LIST Tobacco Abuse Spinal Stenosis, Lumbar Region With Neurogenic Claudication Acid Reflux Hirsutism Pure Hypercholesterolemia (more content not included)... [facility] 08-24-2023 Note HNO ID: [id number] Author: DAXA KELLEY APRN.[employer] Service: Neurosurgery Author Type: Nurse Practitioner Type: Progress Notes Filed: 08/24/2023 13:48 Note Text: NEUROSURGERY POST OP PROGRESS NOTE SERVICE DATE: 08/24/2023 SERVICE TIME: 1:36 PM POST OP DAY: # 1 SUBJECTIVE Patient states that the preoperative symptoms of right leg radiculopathy are improving. Right leg was also buckling prior to admission-- will need further assessment to see if this improved. She had moderate-severe pain. Some relief with POSTAL WORKER pump. Dose increased this morning per pain management. She denies new radicular symptoms and weakness since surgery. Patient evaluated by PT this morning. She had difficulty ambulating because she could not find her Birkenstocks. She had nausea/ belching while working with PT but this has since resolved. Tolerating lunch without issues. She denies CP, dyspnea. FC remains. Passing flatus. OBJECTIVE PHYSICAL EXAM: Patient Vitals for the past 24 hrs: BP Temp Temp src Pulse Resp SpO2 Height Weight 08/24/23 1132 (!) 108/42 36.5 ?C (97.7 ?F) Oral 96 18 100 % -- -- 08/24/23 0909 -- -- -- -- 12 -- -- -- 08/24/23 0809 -- -- -- -- 20 96 % -- -- 08/24/23 0727 (!) 97/49 36.9 ?C (98.5 ?F) Oral 88 18 99 % -- -- 08/24/23 0419 98/51 -- -- 87 -- -- -- -- 08/24/23 0417 (!) 109/39 37.1 ?C (98.8 ?F) Oral 87 18 100 % -- -- 08/24/23 0257 -- -- -- -- -- -- 165.1 cm (5' 5) 75.3 kg (166 lb) 08/24/23 0015 108/51 36.7 ?C (98.1 ?F) Oral 84 18 99 % -- -- 08/23/23 211 151/50 -- -- 104 -- -- -- -- 08/23/232029 -- 36.8 ?C (98.2 ?F) Temporal -- 16 98 % -- -- 08/23/231999 110/63 -- -- 92 -- 100 % -- -- 08/23/23 1944 104/57 36.9 ?C (98.4 ?F) Temporal -- -- -- -- -- 08/23/23 191 -- -- -- -- -- 100 % -- -- 08/23/23 1845 (!) 106/49 -- -- 94 16 98 % -- -- 08/23/23 1830 102/62 -- -- 86 16 95 % -- -- 08/23/23 1815 103/76 -- -- 88 16 100 % -- -- 08/23/23 1800 114/60 -- -- 96 16 100 % -- -- 08/23/23 1748 116/63 36.7 ?C (98.1 ?F) Temporal 86 16 100 % -- -- Body mass index is 27.62 kg/m?. GENERAL: No acute distress, cooperative NEURO: Alert and oriented x3. 5/5 strength BL lower extremity- hip adduction/ abduction, knee flexion/ extension, dorsi/ plantar flexion. HEAD/SINUSES: No significant findings. LUNGS: Lungs clear to auscultation. No respiratory distress or accessory muscle use. 2L NC. CARDIAC:Regular rate and rhythm, no murmurs, clicks, gallops to ausculation. ABDOMEN: Abdomen soft, non-tender. BS normal. EXTREMITIES: Extremities normal, no peripheral edema VASCULAR: +2 radial and DP pulses, equal bilaterally. GI/: Tolerating diet. Voids independently. Incision: dressing CDI. Drain: output is 330cc/24hhrs. Tracey: to gravity. Most recent labs and imaging results.. Current Facility-Administered Medications Medication Dose Route Frequency albuterol HFA 90 mcg/actuation 2 Puff (PROVENTIL HFA, VENTOLIN HFA) 2 Puff INHALATION q 4 H PRN docusate sodium 100 mg cap(s) (COLACE) 100 mg ORAL BID spironolactone 50 mg tab(s) (ALDACTONE) 50 mg ORAL BID NaCl 0.9% iv infusion 75 mL/hr INTRAVENOUS CONTINUOUS ondansetron 4 mg tab(s) (ZOFRAN) 4 mg ORAL q 6 H PRN Or ondansetron (PF) 4 mg injection (ZOFRAN) 4 mg INTRAVENOUS q 6 H PRN naloxone 0.1 mg injection (NARCAN) 0.1 mg INTRAVENOUS q 2 MIN PRN NaCl 0.9% iv infusion 5-30 mL/hr INTRAVENOUS CONTINUOUS HYDROmorphone POSTAL WORKER 0.5 mg/mL in NaCl 0.9% 100 mL INTRAVENOUS CONTINUOUS HYDROmorphone 0.5 mg/mL POSTAL WORKER CLINICIAN DOSE 0.2 mg 0.2 mg INTRAVENOUS q 3 H PRN methocarbamol 750 mg tab(s) (ROBAXIN) 750 mg ORAL TID PRN acetaminophen 1,000 mg tab(s) (TYLENOL) 1,000 mg ORAL q 8 H prochlorperazine 5 mg injection (COMPAZINE) 5 mg INTRAVENOUS ONCE [START ON 08/25/2023] heparin 5,000 Units injection 5,000 Units SUBCUTANEOUS q 12 H polyethylene glycol 3350 17 g packet 17 g ORAL DAILY ASSESSMENT AND PLAN Patient Active Hospital Problem List: Status post lumbar spinal fusion (02/24/2022) Pure hypercholesterolemia (06/28/2021) Lumbar stenosis with neurogenic claudication (02/23/2022) History of DVT (deep vein thrombosis) (03/05/2022) Asthma with chronic obstructive pulmonary disease (COPD) (05/17/2022) PAD (peripheral artery disease) (HCC) (02/09/2023) Medication and Non-Pharmacologic VTE Prophylaxis/Anticoagulants Anticoagulant AND Antiplatelet Medications (From admission, onward) Start Dose Route Frequency Last Action Ordered Stop 08/25/23 0900 heparin 5,000 Units injection 5,000 Units SUBCUTANEOUS EVERY 12 HOURS Ordered 08/24/23 0725 -- 08/23/23 1800 vte pharmacologic prophylaxis contraindicated (ca,wv) 08/23/23 1800 pneumatic compression stockings (ca,wv) 08/23/23 1800 graduated compression stockings ([place], [place]) 08/23/23 1800 activity - mobilize patient ([place]) VTE Prophylaxis: VTE prophylaxis appropriate; BLE SCDs/ TEDs. SQ heparin POD#2 Elsy Dinero is a 53 year old status post L2-S1 revision fusion, right L4 foraminotomy, L5-S1 (more content not included)... [facility] 08-23-2023 Note HNO ID: [id number] Author: FARNAZ CAM APRN.MD OPHTHALMOLOGIST Service: Anesthesiology Author Type: Nurse Manager Security Type: Anesthesia Procedure Notes Filed: 08/23/2023 16:17 Note Text: ANESTHESIOLOGY PROCEDURE NOTE PIV General Information Procedure Start Time/Medication Administration: 08/23/2023 4:14 PM Procedure End Time: 08/23/2023 4:16 PM Patient Location: OR Staffing Anesthesiologist: James Arroyo MD MD OPHTHALMOLOGIST: Farnaz Cam APRN.MD OPHTHALMOLOGIST Performed by: CONOR Preparation Sterility Preparation: hand hygiene performed prior to procedure, sterile gloves, drapes, and procedure tray, gown used during line insertion, surgical cap used, mask used, sterile drape used during line insertion, skin prep agent completely dried prior to procedure Sterility Technique Not Completely Performed Due to Extreme Emergency: No Site Prep: alcohol Procedure Details Indication: need for IV access Needle Size/Type: 20 gauge angiocath Orientation: Left Location: Hand Imaging Guidance Used: No SIGNATURE: Farnaz Cam APRN.MD OPHTHALMOLOGIST PATIENT NAME: Elsy Dinero DATE: August 23, 2023 TIME: 4:16 PM CSN: [id number] [facility] 08-23-2023 Note HNO ID: [id number] Author: FARNAZ CAM APRN.MD OPHTHALMOLOGIST Service: Anesthesiology Author Type: Nurse Manager Security Type: Anesthesia Procedure Notes Filed: 08/23/2023 13:17 Note Text: ANESTHESIOLOGY PROCEDURE NOTE Airway General Information Procedure Start Time/Medication Administration: 08/23/2023 1:09 PM Procedure End Time: 08/23/2023 1:11 PM Patient location during procedure: OR Timeout Performed Pre-procedure: timeout performed Consent Obtained: Yes Patient identity confirmed: arm band Staffing Anesthesiologist: James Arroyo MD MD OPHTHALMOLOGIST: Farnaz Cam APRN.MD OPHTHALMOLOGIST Performed by: CONOR Indications and Patient Condition Indications for airway management: anesthesia Preoxygenated: yes anesthesia circuit Patient position: sniffing Method: asleep Cricoid Pressure: No Manual In-Line Stabilization: No Difficult Mask: No Final Airway Details Final airway type: endotracheal airway Final Endotracheal Airway: ETT Cuffed: yes Successful intubation technique: video laryngoscopy Devices used: Glidescope Endotracheal tube insertion site: oral Blade: Essie Blade size: #3 ETT size (mm): 7.0 Measured from: lips Measurement (cm): 22 Placement verified by: chest auscultation and capnometry Cormack-Lehane Classification: grade I - full view of glottis Number of attempts at approach: 1 Failed airway: no Unrecognized esophageal intubation: no Airway not difficult SIGNATURE: Farnaz Cam APRN.MD OPHTHALMOLOGIST PATIENT NAME: Elsy Dinero DATE: August 23, 2023 TIME: 1:16 PM CSN: [id number] [facility] 07-20-2023 Miscellaneous Notes Call placed to patient. Patient informed of new order for nicotine test and to complete when she has been 2 weeks nicotine free. States she has not smoked in 12 days and will complete next week. documented in this encounter [facility] 07-03-2023 History of Present illness Narrative Images from the original note were not included. SPINE SURGERY FOLLOW UP This is an in-person visit. SERVICE DATE: 07/03/2023 SURGERY DATE: 02/23/2022, 05/17/2022 Elsy Dinero is a 53 year old female who presents s/p L2 to ilium instrumented fusion, L3, 4 and 5 laminectomy, L2-3, 3-4 and L5-S1 transforaminal lumbar interbody fusion, 02/23/2022. She is also s/p Removal of bilateral iliac screws, 05/17/2022. At [facility], the patient reported continued right-sided low back pain radiating into the right leg, as well as right leg weakness. She stated she was doing aqua therapy, which she found helpful. She stated she had not tried back injections before. She stated she was open to trying a back injection. Today, the patient reports she is doing about the same, not better but not worse. She states her left side is fine and she is able to deal with some pain but she feels limited because she cannot travel or work a full day. She states she is open to pursuing another spine surgery. Positive tobacco use. PAIN EVALUATION 07/03/2023 1326 Pain Level: 7 Pain Location: Back-Lower right leg Description: Aching;Sharp Duration Units: Years Frequency: Continuous ANTIPLATELET OR ANTICOAGULATION STATUS: No Patient Entered Questionnaires Spine Questions 04/27/2021 06/10/2021 12/20/2021 Pain Location: Lower back Lower back Lower back Pain Duration: More than 5 years - - Symptoms from neck/cervical spine: No No No Employment Status: - - Working now Involved in law suit/legal claim: - - No Spine Red Flags 04/27/2021 Any type of cancer: No Unexplained fever: No Bowel or bladder disfunction: Yes Unintentional weight loss: No Osteoporosis: No PROMIS Score Percentiles Physical Health 04/27/2021 06/10/2021 12/20/2021 Physical Function Percentile 3 2 2 Sleep Percentile 4 4 21* Fatigue Percentile 14 1 4 Pain Interference Percentile 1 1 4 PROMIS SOCIAL ROLE SCORE 04/27/2021 06/10/2021 12/20/2021 Social Role Satisfaction Percentile 10 8 18* PROMIS Global Health Scale 05/17/2016 04/27/2021 12/20/2021 Physical Health Percentile 7 4 2 Mental Health Percentile 26* 43 13 Percentiles provide an indication of how the patient's score ranks in relation to the general population. Higher percentile rankings indicate better function/quality of life. 50th percentile is the average of the general population and indicates half of respondents had a worse score. Depression Screening: PHQ-9 04/27/2021 06/10/2021 12/20/2021 Score 9 10 10 PHQ-9 Self-harm Question 04/27/2021 06/10/2021 12/20/2021 Thoughts that you would be better off , or of hurting yourself in some way 0 0 0 PHQ-9 Self-Harm (Item 9) response options: 0 Not at all 1 Several days 2 More than half the days 3 Nearly every day PHQ-9 Levels: 0-4 No to mild depression 5-9 Mild depression 10-14 Moderate depression 15-19 Moderately severe depression 20-27 Severe depression PHYSICAL EXAM: Wt 74.5 kg (164 lb 3.2 oz) LMP 03/02/2015 BMI 26.50 kg/m GENERAL APPEARANCE: Well nourished, well developed, and no apparent distress. NEURO PSYCH: Patient oriented to person, place, and time. Mood pleasant. Benign affect. MUSCULOSKELETAL VISUAL INSPECTION: incision well healed CERVICAL: WNL THORACIC: WNL LUMBAR: WNL MOTOR: 5/5 in all muscle groups. SENSORY: Normal sensory exam GAIT: Normal. REFLEXES: +2 to bilateral U/L extremities. STRAIGHT LEG TEST: Normal Good sagittal balance. NEURO TESTS: None DATA REVIEW: [facility] records independently reviewed Imaging and outside records independently reviewed Images independently reviewed with the patient ASSESSMENT/PLAN s/p L2 to ilium instrumented fusion, L3, 4 and 5 laminectomy, L2-3, 3-4 and L5-S1 transforaminal lumbar interbody fusion, 02/23/2022. s/p Removal of bilateral iliac screws, 05/17/2022. Discussed surgical intervention. Elsy Cruz Marileecollin is clinically indicated and wishes to pursue Redo L5-S1 TLIF, Redo L5-S1 instrumented fusion, exploration of L4-5 nerve roots. The risks, benefits, and anticipated outcomes of the procedure/treatment/test, the alternatives to the procedure/treatment/test and their risks and benefits, and the roles and tasks of the personnel to be involved were discussed with the patient or the patient s personal pharmacy services representative. The patient has elected to schedule surgery at this time or intends to call the office with a surgical date. Shared decision making occurred while obtaining informed consent. Nasal swab for pre op testing. Smoking cessation. Follow up: post op, patient may follow up virtually or in person, advised to call if symptoms worsen. I spent a total of 25 minutes on the date of the service which included preparing to see the patient, [id number] patient care, completing clinical documentation, obtaining and/or reviewing separately obtained history, performing a medically appropriate examination, and counseling and educating the patient/family/caregiver. Scribe Attestation: By signing my name below, Caroline Thakkar, attest that this documentation has been prepared under the direction and in the presence of Dr. Ambrose Birch.Electronically Signed: Ana Maria Kimball. July 03, 2023 Provider Attestation: Ambrose Thakkar MD, personally performed the services described in this documentation. All medical record entries made by the scribe were at my direction and in my presence. I have reviewed the chart and discharge instructions (if applicable) and agree that the record reflects my personal performance and is accurate and complete. I spent a total of 20 minutes on the date of the service which included preparing to see the patient, [id number] patient care, completing clinical documentation, performing a medically appropriate examination, counseling and educating the patient/family/caregiver, and ordering medications, tests, or procedures Electronically Signed: Ambrose Birch MD July 03, 2023 4:47 PM SIGNATURE: Ambrose Birch MD PATIENT NAME: Elsy Dinero DATE: July 03, 2023 TIME: 2:02 PM PAGER: documented in this encounter [facility] 05-30-2023 History of Present illness Narrative Radiology Service Progress Note PATIENT NAME: Elsy Dinero DATE OF SERVICE: May 30, 2023 TIME: 4:30 PM PATIENT IDENTITY VERIFICATION COMPLETED USING TWO (2) IDENTIFIERS: Name and Date of confirmed by patient verbally. FALL SCREENING: Has the patient had 2 falls in the last year or 1 fall with injury or currently using an Ambulatory Assistive Device (Walker, Cane, Wheelchair, Crutches, etc.)? No PATIENT GENDER DATA: Female. status: : No status: NO. PATIENT RELEVANT IMPLANT DATA REVIEWED: Yes RADIOLOGY DEPARTMENT: General X-ray: Exam(s) Completed: Chest X-Ray PERIPHERAL IV DATA: Not applicable SIGNED BY: RT Destiny(R) May 30, 2023 4:30 PM documented in this encounter [facility] 05-30-2023 History of Present illness Narrative Subjective HPI Nontoxic-appearing female presents urgent care chief plaint sinus pressure cough. Duration of symptoms 16 days. Associated symptoms listed above. States cough has been staying persistent. Has not improved and not worsen. Mcintosh like sinus pressure may have worsened in the last few days. Has used OTC medications help little. Sick contacts daughter similar signs symptoms. Risk factors asthma with COPD. Denies any fever body aches chills productive cough chest pain shortness of breath pleuritic pain hemoptysis nausea vomiting abdominal pain change in bowel or bladder habits. Past medical history prescription medication use and allergies reviewed. .Patient presents with: Cough: Congestion, drainage x 16 days PAST MEDICAL HISTORY Diagnosis Date Acid reflux Acute gastritis without mention of hemorrhage 09/14/2011 Allergy-induced asthma, mild intermittent, uncomplicated Asthma Chronic midline low back pain without sciatica 05/17/2016 Duodenitis 09/14/2011 Duodenitis without mention of hemorrhage Facet arthropathy, lumbar 05/17/2016 Hemorrhage of gastrointestinal tract, unspecified Hirsutism 09/16/2019 Pure hypercholesterolemia 06/28/2021 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 Spinal stenosis, lumbar region, without neurogenic claudication 03/27/2015 Suicidal ideation 03/03/2022 Tobacco use disorder 04/11/2007 Vascular occlusion 01/07/2022 Intraoperative L common iliac artery occlusion PAST SURGICAL HISTORY Procedure Laterality Date ARTHROSCOPIC REMOVAL HARDWARE DEEP 05/17/2022 removal of iliac screws ESOPHAGOGASTRODUODENOSCOPY TRANSORAL DIAGNOSTIC 09/14/2011 EGD ILIAC REVASC ADD-ON Left 01/07/2022 L Common Iliac Artery endarterectomy LUMBAR SPINE FUSION COMBINED 02/23/2022 L2 to ilium instrumented fusion, L3, 4 and 5 laminectomy, L2-3, 3-4 and L5-S1 transforaminal lumbar interbody fusion. LUMBAR SPINE FUSION,ANTER APPRCH 01/07/2022 ALIF L4-L5. PAST SURGICAL HISTORY OF 04/29/2012 excision of back lump SIGMOIDOSCOPY FLX DX W/COLLJ SPEC BR/WA IF PFRMD 09/14/2011 Sigmoidoscopy, flexible ALLERGIES Prednisone, Zyban [Bupropion], Animal Hair-Dander [Homeopathic Products], Cats, Dogs, Niacin, Pollen, Gabapentin, Ciprofloxacin, Grass Pollen, and Trees MEDICATIONS methocarbamol (ROBAXIN) 750 mg tablet Take 1 tablet by mouth twice daily. albuterol HFA (PROVENTIL HFA, VENTOLIN HFA) 90 mcg/actuation inhaler Inhale 2 Puffs as instructed every 4 hours as needed for wheezing/shortness of breath. spironolactone (ALDACTONE) 50 mg tablet Take 1 tablet by mouth twice daily. ibuprofen (MOTRIN ORAL) Take by mouth. sennosides (SENNACON ORAL) Take by mouth. diphenhydramine HCl (BENADRYL ALLERGY ORAL) Take by mouth. 2 tablets qhs triamcinolone acetonide (NASACORT AQ NASAL) Use 1 [place] in the nose. qAM as needed docusate sodium (COLACE) 100 mg capsule Take 1 capsule by mouth twice daily. fexofenadine (STANLEY) 180 mg tablet Take 180 mg by mouth once daily. famotidine (PEPCID ORAL) Take 1 tablet by mouth twice daily. FAMILY HISTORY Problem Relation Age of Onset GI Mother colon polyps Cancer Mother Lung/Uterine/ cervical Allergies Mother GI Father colon polyps Diabetes Father Coronary Artery Disease Father Stents Heart Father age 85 Dementia Father No Known Problems Sister No Known Problems Sister Diabetes Brother Kidney Disease Brother dialysis Heart Failure Brother Allergies Daughter Heart Daughter PDA closure Allergies Daughter Breast Cancer Maternal Grandmother Allergies Maternal Grandfather Breast Cancer Paternal Grandmother Allergies Paternal Grandmother Diabetes Paternal Grandfather Anesthesia Problems No Family History Anesthesia No Family History Social History Tobacco Use Smoking status: Every Day Packs/day: 2.00 Years: 38.00 Additional pack years: 0.00 Total pack years: 76.00 Types: Cigarettes Last attempt to quit: 10/23/2021 Years since quittin.6 Smokeless tobacco: Never Tobacco comments: started age 13. Resumed 1 PPD 10/2022 Vaping Use Vaping Use: Never used Substance Use Topics Alcohol use: Not Currently Comment: recovering since 2017. Drug use: Not Currently Comment: experimented in 20s BP 116/84 Pulse 89 Temp 37.2 C (99 F) Resp 20 Wt 74.8 kg (165 lb) LMP 03/02/2015 SpO2 99% BMI 26.63 kg/m Review of Systems Constitutional: Negative for chills, fever and malaise/fatigue. HENT: Positive for congestion and sinus pain. Negative for ear discharge, ear pain and sore throat. Eyes: Negative for blurred vision, pain, discharge and redness. Respiratory: Positive for cough. Negative for hemoptysis, sputum production, shortness of breath, wheezing and stridor. Cardiovascular: Negative for chest pain. Gastrointestinal: Negative for abdominal pain, diarrhea, nausea and vomiting. Musculoskeletal: Negative for myalgias. Skin: Negative for itching and rash. Neurological: Negative for dizziness and headaches. Objective Physical Exam Constitutional: General: She is not in acute distress. Appearance: She is not diaphoretic. HENT: Head: Normocephalic. Jaw: No trismus, tenderness, swelling or pain on movement. Nose: Congestion present. Right Sinus: Maxillary sinus tenderness present. Left Sinus: Maxillary sinus tenderness present. Mouth/Throat: Mouth: Mucous membranes are moist. Pharynx: Oropharynx is clear. Uvula midline. No pharyngeal swelling, oropharyngeal exudate, posterior oropharyngeal erythema or uvula swelling. Eyes: Conjunctiva/sclera: Conjunctivae normal. Pupils: Pupils are equal, round, and reactive to light. Cardiovascular: Rate and Rhythm: Normal rate and regular rhythm. Heart sounds: Normal heart sounds. Pulmonary: Effort: Pulmonary effort is normal. No tachypnea, accessory muscle usage or respiratory distress. Breath sounds: No stridor. Wheezing present. No rhonchi or rales. Abdominal: General: There is no distension. Palpations: Abdomen is soft. Tenderness: There is no abdominal tenderness. There is no guarding or rebound. Musculoskeletal: Cervical back: Normal range of motion and neck supple. No edema, erythema, rigidity or tenderness. No pain with movement. Normal range of motion. Lymphadenopathy: Cervical: No cervical adenopathy. Skin: General: Skin is warm and dry. Neurological: Mental Status: She is alert and oriented to person, place, and time. ASSESSMENT/PLAN: 1. Acute cough - ICD9: 786.2, ICD10: R05.1 - XR CHEST 2V FRONTAL/LAT IMPRESSION: No acute radiographic abnormality. No acute findings noted on x-ray. Treat as sinobronchitis. Cough suppressant started. Placed on doxycycline. Red flags prompt elevation discussed. Patient was educated on supportive therapies. Patient will follow up with primary care provider as needed. Patient was instructed to immediately proceed to emergency room for any new, worsening, or symptoms lasting longer than anticipated. The patient's clinical presentation is otherwise unremarkable at this time. Based on exam and clinical finding, the patient is stable for discharge. Plan of care was discussed with patient. Patient verbalizes understanding and agrees to plan of care. This note was generated using [employer] software. It may contain errors in wording, punctuation, or spelling. Khoi Lopez APRN.[place] documented in this encounter [facility] 05-26-2023 Miscellaneous Notes Spoke with Elsy over the phone. She wanted the clarify the current plan. She states that Dr Cardoso had recommended a specialized PT to her that is 30-45 minutes from her. She stated she would rather stay with her current PT and self guided aqua therapy that is closer to home and wanted to update our team. She thinks the injection was helpful in determining the location of her pain. She is thankful for the call. She will follow up in one month. Rg Greer APRN.[place] Patient call to let Dr Birch know that she had her injection with Dr Cardoso two days ago. When he put the needle in, her pain immediately shot up from a 6 to a 10. Her pain is now back to a 6, but her cramping incidents have increased since the injection. So far she doesn't think it has helped. Per patient, Dr Cardoso suggested more PT, but the patient doesn't see the point in doing that since she has already done PT with no relief. Please call patient to advise or ok to respond to patient on MyChart. documented in this encounter [facility] 05-01-2023 History of Present illness Narrative SPINE SURGERY FOLLOW UP This is an in-person visit. SERVICE DATE: 05/01/2023 SURGERY DATE: 02/23/2022, 05/17/2022 Elsy Dinero is a 52 year old female who presents s/p L2 to ilium instrumented fusion, L3, 4 and 5 laminectomy, L2-3, 3-4 and L5-S1 transforaminal lumbar interbody fusion, 02/23/2022. She is also s/p Removal of bilateral iliac screws, 05/17/2022. At [facility], the patient reported right sided low back pain. She stated that her pain was aggravated when she was participating in aqua therapy. She denied any issues with her left side. She stated that she had been having this pain for a long time and the pain had stayed relatively the same. She stated that she lost her job in July. She stated that she had tried gabapentin in the past and did not find it helpful, she also had a hard time with the side effects. Today, the patient reports continued right-sided low back pain radiating into the right leg, as well as right leg weakness. She states she is doing aqua therapy which she finds helpful. She states she has not tried back injections before. She states she is open to trying a back injection. PAIN EVALUATION 05/01/2023 1255 Pain Level: 7 Pain Location: Side-Right Description: Stabbing;Spasm;Aching Duration Amount of Time: 1.5 Duration Units: Years Frequency: Continuous ANTIPLATELET OR ANTICOAGULATION STATUS: No Patient Entered Questionnaires Spine Questions 04/27/2021 06/10/2021 12/20/2021 Pain Location: Lower back Lower back Lower back Pain Duration: More than 5 years - - Symptoms from neck/cervical spine: No No No Employment Status: - - Working now Involved in law suit/legal claim: - - No Spine Red Flags 04/27/2021 Any type of cancer: No Unexplained fever: No Bowel or bladder disfunction: Yes Unintentional weight loss: No Osteoporosis: No PROMIS Score Percentiles Physical Health 04/27/2021 06/10/2021 12/20/2021 Physical Function Percentile 3 2 2 Sleep Percentile 4 4 21* Fatigue Percentile 14 1 4 Pain Interference Percentile 1 1 4 PROMIS SOCIAL ROLE SCORE 04/27/2021 06/10/2021 12/20/2021 Social Role Satisfaction Percentile 10 8 18* PROMIS Global Health Scale 05/17/2016 04/27/2021 12/20/2021 Physical Health Percentile 7 4 2 Mental Health Percentile 26* 43 13 Percentiles provide an indication of how the patient's score ranks in relation to the general population. Higher percentile rankings indicate better function/quality of life. 50th percentile is the average of the general population and indicates half of respondents had a worse score. Depression Screening: PHQ-9 04/27/2021 06/10/2021 12/20/2021 Score 9 10 10 PHQ-9 Self-harm Question 04/27/2021 06/10/2021 12/20/2021 Thoughts that you would be better off , or of hurting yourself in some way 0 0 0 PHQ-9 Self-Harm (Item 9) response options: 0 Not at all 1 Several days 2 More than half the days 3 Nearly every day PHQ-9 Levels: 0-4 No to mild depression 5-9 Mild depression 10-14 Moderate depression 15-19 Moderately severe depression 20-27 Severe depression PHYSICAL EXAM: BP 124/57 Pulse 83 Wt 73.9 kg (163 lb) LMP 03/02/2015 SpO2 100% BMI 26.31 kg/m GENERAL APPEARANCE: Well nourished, well developed, and no apparent distress. NEURO PSYCH: Patient oriented to person, place, and time. Mood pleasant. Benign affect. 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 SENSORY: Normal sensory exam GAIT: Normal. REFLEXES: +2 to bilateral U/L extremities. STRAIGHT LEG TEST: Normal Good sagittal balance. NEURO TESTS: None DATA REVIEW: [facility] records independently reviewed Imaging and outside records independently reviewed Images independently reviewed with the patient MRI LUMBAR SPINE WO IVCON 04/26/2023 IMPRESSION: Interval postsurgical changes of L3-5 posterior decompression with posterior instrumented fusion. No significant spinal canal stenosis. Severe right foraminal stenosis at L4-5. Additional mild neural foraminal narrowings as discussed level by level in body of the report. Anatomic Lumbar Variant: None. L4-5 is considered the level of the iliac crest and assume there are 5 lumbar-type vertebrae. ASSESSMENT/PLAN s/p L2 to ilium instrumented fusion, L3, 4 and 5 laminectomy, L2-3, 3-4 and L5-S1 transforaminal lumbar interbody fusion, 02/23/2022. s/p Removal of bilateral iliac screws, 05/17/2022. Elsy Dinero will continue with medical management of his/her condition. Spine intervention: Right L4-[address] Cardoso Medication: Robaxin 750 mg BID Follow up: Two months, patient may follow up virtually or in person, advised to call if symptoms worsen. I spent a total of 15 minutes on the date of the service which included preparing to see the patient, [id number] patient care, completing clinical documentation, obtaining and/or reviewing separately obtained history, performing a medically appropriate examination, and counseling and educating the patient/family/caregiver. Scribe Attestation: By signing my name below, ICaroline, attest that this documentation has been prepared under the direction and in the presence of Dr. Ambrose Birch.Electronically Signed: Ana Maria Kimball. May 01, 2023 Provider Attestation: Ambrose Thakkar MD, personally performed the services described in this documentation. All medical record entries made by the scribe were at my direction and in my presence. I have reviewed the chart and discharge instructions (if applicable) and agree that the record reflects my personal performance and is accurate and complete. I spent a total of 10 minutes on the date of the service which included preparing to see the patient, [id number] patient care, completing clinical documentation, performing a medically appropriate examination, counseling and educating the patient/family/caregiver, and ordering medications, tests, or procedures Electronically Signed: Ambrose Birch MD May 01, 2023 1:38 PM SIGNATURE: Ambrose Birch MD PATIENT NAME: Elsy Dinero DATE: May 01, 2023 TIME: 1:10 PM PAGER: documented in this encounter [facility] 04-26-2023 History of Present illness Narrative Radiology Service Progress Note PATIENT NAME: Elsy Dinero DATE OF SERVICE: April 26, 2023 TIME: 8:24 AM PATIENT IDENTITY VERIFICATION COMPLETED USING TWO (2) IDENTIFIERS: Name and Date of confirmed by patient verbally. FALL SCREENING: Has the patient had 2 falls in the last year or 1 fall with injury or currently using an Ambulatory Assistive Device (Walker, Cane, Wheelchair, Crutches, etc.)? Yes, Patient High Risk for Falls What interventions were put in place to prevent falls during this visit? Instructed Patient to Call for Help if Needed, Offered Assistance with Transfers/Clothing, Instructed Patient to Remain Seated (Not on Exam Table) Until Exam, and Increased Observations by Caregivers PATIENT GENDER DATA: Female. status: : No status: NO. PATIENT RELEVANT IMPLANT DATA REVIEWED: Yes RADIOLOGY DEPARTMENT: MR; Exam(s) Completed: Spine: Lumbar spine PERIPHERAL IV DATA: Not applicable SIGNED BY: RT Miles(R) April 26, 2023 8:24 AM documented in this encounter [facility] 04-06-2023 Discharge summary Note Date/Time April 06, 2023 9:46am [facility] [address] [place] [address] [address] [place] [address] / REHABILITATION SERVICES DISCHARGE SUMMARY MR#: [id number] Acct: [id number] Name: ELSY DINERO Rep #: [id number] : 1970 52 From: Nancy Singh Referring DrIlene: OUT OF TOWN DOCTOR Status: REG RCR Insurance: [facility] SELF PAY INSURANCE Discharge Summary D/C summary: It has been my pleasure to treat ELSY DINERO referred by AMBROSE BIRCH, with the diagnosis of for a total of 40 visit(s). Discharge Date: Please see the following information for a summary of their discharge status. Subjective Subjective: Nothing new. Pain back: Pain Intensity (Out of 10): 7 Down the R leg: Pain Intensity (Out of 10): 7 Overall Improvement % Improvement: 75 Objective Objective/Function: Cont transitioning pt to indep gym program. Allowed pt set-up machines with supervision and instruction. Plan Plan: D/c after this session. D/C Information d/c sentence: If there are questions or concerns regarding this patient's physical therapy, please feel free to call me at [phone]. Thank you for the referral of thispatient. Sincerely, Nancy Alarcon, DPT Balance/Gait/Functional tests Balance/Special Test Scores Oswestry Low Back Score: 26 Lower Extremity Functional Score: 28 Improvement % Improvement: 75 <Electronically signed by Nancy Alarcon DPT> 04/06/23 0946 CC: Dr. Elvin Diaz MD; AMBROSE BIRCH ~ ELR Signed [facility] Work Phone: 1(646) 655-190108-17-2023 History of Present illness Narrative* Ambrose Birch MD - 03/23/2023 3:29 PM EDT Images from the original note were not included. SPINE SURGERY FOLLOW UP This is an in-person visit. SERVICE DATE: 03/23/2023 SURGERY DATE: 02/23/2022, 05/17/2022 Elsy Dinero is a 52 year old female who presents s/p L2 to ilium instrumented fusion, L3, 4 and 5 laminectomy, L2-3, 3-4 and L5-S1 transforaminal lumbar interbody fusion, 02/23/2022. She is alsos/p Removal of bilateral iliac screws, 05/17/2022. At [facility], the patient reported right sided back pain. She stated that she was doing somewhat better. She stated she planned to discuss adjusting her workload. She stated she was not interested in doinganother surgery at this time. Today, the patient reports right sided low back pain. She states that her pain is aggravated when she is participating in aqua therapy. She denies any issues with her left side. She states that she has been having this pain for a long time and the pain has stayed relatively the same. She states that she lost her job in July. She states that she has tried gabapentin in the past and did not find it helpful, she also had a hard time with the side effects. PAIN EVALUATION 03/23/2023 1523 Pain Level: 6 Pain Location: Back-Lower right side Description: Stabbing;Radiating Frequency: Continuous ANTIPLATELET OR ANTICOAGULATION STATUS: No Patient Entered Questionnaires Spine Questions 04/27/2021 06/10/2021 12/20/2021 Pain Location: Lower back Lower back Lower back Pain Duration: More than 5 years - - Symptoms from neck/cervical spine: No No No Employment Status: - - Working now Involved in law suit/legal claim: - - No Spine Red Flags 04/27/2021 Any type of cancer: No Unexplained fever: No Bowel or bladder disfunction: Yes Unintentional weight loss: No Osteoporosis: No PROMIS Score Percentiles Physical Health 04/27/2021 06/10/2021 12/20/2021 Physical Function Percentile 3 2 2 Sleep Percentile 4 4 21* Fatigue Percentile 14 1 4 Pain Interference Percentile 1 1 4 PROMIS SOCIAL ROLE SCORE 04/27/2021 06/10/2021 12/20/2021 Social Role Satisfaction Percentile 10 8 18* PROMIS Global Health Scale 05/17/2016 04/27/2021 12/20/2021 Physical Health Percentile 7 4 2 Mental Health Percentile 26* 43 13 Percentiles provide an indication of how the patient's score ranks in relation to the general population. Higher percentile rankings indicate better function/quality of life. 50th percentile is the average of the general population and indicates half of respondents had a worse score. Depression Screening: PHQ-9 04/27/2021 06/10/2021 12/20/2021 Score 9 10 10 PHQ-9 Self-harm Question 04/27/2021 06/10/2021 12/20/2021 Thoughts that you would be better off , or of hurting yourself in some way 0 0 0 PHQ-9 Self-Harm (Item 9) response options: 0 Not at all 1 Several days 2 More than half the days 3 Nearly every day PHQ-9 Levels: 0-4 No to mild depression 5-9 Mild depression 10-14 Moderate depression 15-19 Moderately severe depression 20-27 Severe depression PHYSICAL EXAM: BP 107/71 Pulse 92 Ht 167.6 cm (5' 6) Wt 74.9 kg (165 lb 3.2 oz) LMP 03/02/2015 SpO2 99% BMI 26.66 kg/m GENERAL APPEARANCE: Well nourished, well developed, and no apparent distress. NEURO PSYCH: Patient oriented to person, place, and time. Mood pleasant. Benign affect. MUSCULOSKELETAL VISUAL INSPECTION: incision well healed CERVICAL: WNL THORACIC: WNL LUMBAR: WNL MOTOR: 5/5 in all muscle groups. SENSORY: Normal sensory exam GAIT: Normal. REFLEXES: +2 to bilateral U/L extremities. STRAIGHT LEG TEST: Normal Good sagittal balance. NEURO TESTS: None DATA REVIEW: [facility] records independently reviewed Imaging and outside records independently reviewed Images independently reviewed with the patient CT LUMBAR SPINE WO IVCON 02/27/2023 IMPRESSION: Interval development development of lucency surrounding the L2 pedicle screws bilaterally reflecting loosening. Otherwise stable extensive postoperative changes of posterior fusion at L2-S1. Anatomic Lumbar Variant: None. L4-5 is considered the level of the iliac crest and assume there are 5 lumbar-type vertebrae. ASSESSMENT/PLAN s/p L2 to ilium instrumented fusion, L3, 4 and 5 laminectomy, L2-3, 3-4 and L5- S1 transforaminal lumbar interbody fusion, 02/23/2022. s/p Removal of bilateral iliac screws, 05/17/2022. Elsy Dinero has a condition that requires further workup. Imaging: Lumbar MRI Without Contrast Symptoms of neuro deficit or red flag symptoms listed in HPI Follow up: Four weeks, patient may follow up virtually or in person, advised to call if symptoms worsen. I spent a total of 30 minutes on the date of the service which included preparing to see the patient, [id number] patient care, completing clinical documentation, obtaining and/or reviewing separately obtained history, performing a medically appropriate examination, and counseling and educating the patient/family/caregiver. Scribe Attestation: By signing my name below, I, Caroline Santoyo, attest that this documentation has been prepared under the direction and in the presence of Dr. Ambrose Birch.Electronically Signed: Ana Maria Kimball. March 23, 2023 Provider Attestation: I, Ambrose Birch MD, personally performed the services described in this documentation. All medical record entries made by the scribe were at my direction and in my presence. I have reviewed the chartand discharge instructions (if applicable) and agree that the record reflects my personal performance and is accurate and complete. I spent a total of 30 minutes on the date of the service which included preparing to see the patient, [id number] patient care, completing clinical documentation, performing a medically appropriate examination, counseling and educating the patient/family/caregiver, and ordering medications, tests,or procedures Electronically Signed: Ambrose Birch MD March 23, 2023 5:01 PM SIGNATURE: Ambrose Birch MD PATIENT NAME: Elsy Dinero DATE: March 23, 2023 TIME: 3:50 PM PAGER: documented in this [facility]08-10-2023 Miscellaneous Notes* Telephone Encounter - Delia Duggan - 03/16/2023 10:28 AM EDT Patient called stating she saw her CT scan results on [facility] and noticed it mentioned loosening ofscrews. She is scheduled for a virtual visit on 04/03. She wants to know if this issue is urgent, and if she needs to be seen in person. Please call her at [phone] documented [facility]23 Miscellaneous Notes* Telephone Encounter - Eva Chandler LPN - 03/07/2023 11:03 AM EDT Pharmacy requesting alternate prescription or will need to do a PA. Eva Chandler LPN documented in this [facility]08-01-2023 Miscellaneous Notes* Telephone Encounter - Helen Tavarez Ma - 03/07/2023 8:11 AM EDT Patient having issue getting inhaler dispensed. Verified with patient can tolerate different brand does not need LARISSA. Pharmacy advised rx has to be sent where it specifies formulary option can be dispensed. Pended new rx please send. No need to call patient aware will be taken care of Helen Tavaerz Ma documented in this [facility]Ke[facility]-2023 Miscellaneous Notes* Telephone Encounter - Stanley Deluca RN - 03/01/2023 2:01 PM EDT Peer to Peer completed 02/27/23. Call placed to [facility]. Per pharmacy services representative CT has been approved.Authorization number is [id number]. Patient notified. * Telephone Encounter - Elsy Conklin - 02/28/2023 10:24 AM EDT Per patient - she had a CT lumbar done yesterday and then got home and received a denial letter from [facility]. She called them and they said it was denied due to lack of information. [facility] [place] [place] and show medical necessity. She states she does aquatherapy 4-5 week. documented in this [facility]07-[facility]-2023 Discharge summary Author Rudi Madrigal [facility] February 14, 2023 1:14pm Note Date/Time February 08, 2023 3:50p m [facility] Physical Therapy Health[address] [place] [address] / REHABILITATION SERVICES DISCHARGE SUMMARY MR#: [id number] Acct: [id number] Name: ELSY DINERO Rep #: [id number] : 1970 52 From: Rudi Madrigal DPT, OCS, CSCS Referring Dr.: OUT OF TOWN DOCTOR Status: REG RCR Insurance: [facility] SELF PAY INSURANCE ADDENDUM by Rudi Madrigal on 02/14/23 at 1314 This discharge summary was done by mistake on the wrong patient and should be considered nullified adn treatment to continue per plan. 02/14/23 1314 Date _ Rudi Madrigal DPT, OCS, CSCS cc: Dr. Elvin Diaz MD; AMBROSE BIRCH ~* Signed Discharge Summary D/C summary: It has been my pleasure to treat ELSY DINERO referred by AMBROSE BIRCH, with the diagnosis of for a total of 36 visit(s). Discharge Date: Please see the following information for a summary of their discharge status. Subjective Subjective: Pt states she's hurting. States pain is a 7/10 today. Coming from the water. Objective Objective/Function: Pt did well with current exercise selection - working towardindep. Not sure how compliant pt will be on d/c - seems to purely rely on the pool; to make her feel better. Plan Plan: Cont to progress to indep gym program D/C Information d/c sentence: If there are questions or concerns regarding this patient's physical therapy, please feel free to call me at [phone]. Thank you for the referral of thispatient. Sincerely, Rudi Madrigal, DPT, OCS, CSCS <Electronically signed by Rudi Madrigal DPT, OCS, CSCS> 02/08/23 6779 CC: Dr. Elvin Diaz MD; AMBROSE BIRCH ~ EB Signed [facility] Work Phone: 1(866) 304-466407-10-2023 History of Present illness Narrative* Ambrose Birch MD - 02/13/2023 10:45 AM EDT SPINE SURGERY FOLLOW UP This is an in-person visit. SERVICE DATE: 02/13/2023 SURGERY DATE: 02/23/2022 Elsy Dinero is a 52 year old female who presents 1 year s/p L2 to ilium instrumented fusion, L3, 4 and 5 laminectomy, L2-3, 3-4 and L5-S1 transforaminal lumbar interbody fusion, 02/23/2022. She is also 9 months s/p Removal of bilateral iliac screws, 05/17/2022. At [facility], the patient reported spasms in her groin radiating to the legs down to the feet. She statedshe was doing physical therapy. She stated she was taking gabapentin and ibuprofen to manage her symptoms. She stated she was not working. Today, the patient reports right sided back pain. She states that she is doing somewhat better. Shestates she plans to discuss adjusting her workload. She states she is not interested in doing another surgery at this time. PAIN EVALUATION 02/13/2023 1045 Pain Level: 7 Pain Location: Side-Right Description: Stabbing;Spasm Duration Amount of Time: 1 Duration Units: Years Frequency: Continuous ANTIPLATELET OR ANTICOAGULATION STATUS: No Patient Entered Questionnaires Spine Questions 04/27/2021 06/10/2021 12/20/2021 Pain Location: Lower back Lower back Lower back Pain Duration: More than 5 years - - Symptoms from neck/cervical spine: No No No Employment Status: - - Working now Involved in law suit/legal claim: - - No Spine Red Flags 04/27/2021 Any type of cancer: No Unexplained fever: No Bowel or bladder disfunction: Yes Unintentional weight loss: No Osteoporosis: No PROMIS Score Percentiles Physical Health 04/27/2021 06/10/2021 12/20/2021 Physical Function Percentile 3 2 2 Sleep Percentile 4 4 21* Fatigue Percentile 14 1 4 Pain Interference Percentile 1 1 4 PROMIS SOCIAL ROLE SCORE 04/27/2021 06/10/2021 12/20/2021 Social Role Satisfaction Percentile 10 8 18* PROMIS Global Health Scale 05/17/2016 04/27/2021 12/20/2021 Physical Health Percentile 7 4 2 Mental Health Percentile 26* 43 13 Percentiles provide an indication of how the patient's score ranks in relation to the general population. Higher percentile rankings indicate better function/quality of life. 50th percentile is the average of the general population and indicates half of respondents had a worse score. Depression Screening: PHQ-9 04/27/2021 06/10/2021 12/20/2021 Score 9 10 10 PHQ-9 Self-harm Question 04/27/2021 06/10/2021 12/20/2021 Thoughts that you would be better off , or of hurting yourself in some way 0 0 0 PHQ-9 Self-Harm (Item 9) response options: 0 Not at all 1 Several days 2 More than half the days 3 Nearly every day PHQ-9 Levels: 0-4 No to mild depression 5-9 Mild depression 10-14 Moderate depression 15-19 Moderately severe depression 20-27 Severe depression PHYSICAL EXAM: BP 143/63 Pulse 91 Wt 74.4 kg (164 lb) LMP 03/02/2015 SpO2 97% BMI 26.47 kg/m GENERAL APPEARANCE: Well nourished, well developed, and no apparent distress. NEURO PSYCH: Patient oriented to person, place, and time. Mood pleasant. Benign affect. 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 SENSORY: Normal sensory exam GAIT: Normal. REFLEXES: +2 to bilateral U/L extremities. STRAIGHT LEG TEST: Normal Good sagittal balance. NEURO TESTS: None DATA REVIEW: No additional images reviewed today ASSESSMENT/PLAN 1 year s/p L2 to ilium instrumented fusion, L3, 4 and 5 laminectomy, L2-3, 3-4 and L5-S1 transforaminal lumbar interbody fusion, 02/23/2022. 9 months s/p Removal of bilateral iliac screws, 05/17/2022. Elsy Dinero has a condition that requires further workup. Imaging: Lumbar CT Without Contrast Symptoms of neuro deficit or red flag symptoms listed in HPI Follow up: Four weeks I spent a total of 15 minutes on the date of the service which included preparing to see the patient, [id number] patient care, completing clinical documentation, obtaining and/or reviewing separately obtained history, performing a medically appropriate examination, and counseling and educating the patient/family/caregiver. Scribe Attestation: By signing my name below, I, Caroline Natanael, attest that this documentation has been prepared under the direction and in the presence of Dr. Ambrose Birch.Electronically Signed: Ana Maria Kimball. February 13, 2023 Provider Attestation: Ambrose Thakkar MD, personally performed the services described in this documentation. All medical record entries made by the scribe were at my direction and in my presence. I have reviewed the chartand discharge instructions (if applicable) and agree that the record reflects my personal performance and is accurate and complete. I spent a total of 10 minutes on the date of the service which included preparing to see the patient, [id number] patient care, completing clinical documentation, performing a medically appropriate examination, counseling and educating the patient/family/caregiver, and ordering medications, tests,or procedures Electronically Signed: Ambrose Birch MD February 13, 2023 12:17 PM SIGNATURE: Ambrose Birch MD PATIENT NAME: Elsy Dinero DATE: February 13, 2023 TIME: 10:45 AM PAGER: documented in this encounterKe[facility]07-06-2023 History of Present illness Narrative* Elvin Diaz MD - 02/09/2023 9:08 AM EDT This note was created using Bettyvisionriter. Subjective Elsy Dinero is a 52 year old female. She continued to be rollator dependent, and had recurring spasms of her lower back limiting prolonged standing, walking, and general activities of daily living. She was doing therapy exercises regularly and swimming. She complained of earaches related to swimming. Her COPD was more active. She resumed smoking. Vascular surgery released her to medical management of PAD. Her high cholesterol was not treated due to chronic constipation worse with atorvastatin tried in the past. She's also had an ingrown hair or pimple on the right buttock for 2 months, occasionally with drainage. Review of Systems Constitutional: Negative for fever and unexpected weight change. HENT: Negative. Respiratory: Positive for shortness of breath and wheezing. Negative for cough. Cardiovascular: Negative for chest pain, palpitations and leg swelling. Gastrointestinal: Positive for constipation. Genitourinary: Negative for difficulty urinating. Musculoskeletal: Positive for back pain and gait problem. Neurological: Positive for numbness. ACTIVE PROBLEM LIST Allergy-Induced Asthma, Mild Intermittent, Uncomplicated Tobacco Abuse Spinal Stenosis, Lumbar Region With Neurogenic Claudication Acid Reflux Hirsutism Pure Hypercholesterolemia Former Smoker Lumbar Stenosis With Neurogenic Claudication S/P Lumbar Spinal Fusion Poor Compliance Orthopedic Aftercare Generalized Weakness History of Dvt (Deep Vein Thrombosis) S/P Hardware Removal Asthma With Chronic Obstructive Pulmonary Disease (Copd) ([facility]) Pad (Peripheral Artery Disease) ([facility]) Social History Tobacco Use Smoking status: Every Day Packs/day: 2.00 Years: 38.00 Pack years: 76.00 Types: Cigarettes Last attempt to quit: 10/23/2021 Years since quittin.2 Smokeless tobacco: Never Tobacco comments: started age 13. Resumed 1 PPD 10/2022 Vaping Use Vaping Use: Never used Substance Use Topics Alcohol use: Not Currently Comment: recovering since 2017. Drug use: Not Currently Comment: experimented in 20s Current Outpatient Medications Medication Sig methocarbamol (ROBAXIN) 750 mg tablet Take 1 tablet by mouth three times daily as needed (muscle pain). spironolactone (ALDACTONE) 50 mg tablet Take 1 tablet by mouth twice daily. ibuprofen (MOTRIN ORAL) Take by mouth. sennosides (SENNACON ORAL) Take by mouth. diphenhydramine HCl (BENADRYL ALLERGY ORAL) Take by mouth. 2 tablets qhs triamcinolone acetonide (NASACORT AQ NASAL) Use 1 [place] in the nose. qAM as needed docusate sodium (COLACE) 100 mg capsule Take 1 capsule by mouth twice daily. fexofenadine (STANLEY) 180 mg tablet Take 180 mg by mouth once daily. famotidine (PEPCID ORAL) Take 1 tablet by mouth twice daily. ProAir RespiClick 90 mcg/actuation breath activated (albuterol sulfate) Inhale 2 Puffs as instructed every 4 hours as needed. doxycycline (VIBRA-TABS) 100 mg tablet Take 1 tablet by mouth twice daily for 7 days. polyethylene glycol 3350 (MIRALAX ORAL) Take by mouth. No current facility-administered medications for this visit. Objective BP 124/68 (BP Site: Left Arm, BP Position: Sitting, BP Cuff Size: Large Adult) Pulse 80 Resp 16 Wt 74.4 kg (164 lb) LMP 03/02/2015 BMI 26.47 kg/m Physical Exam Constitutional: General: She is not in acute distress. Appearance: She is not ill-appearing. HENT: Right Ear: Tympanic membrane and ear canal normal. Left Ear: Tympanic membrane and ear canal normal. Cardiovascular: Rate and Rhythm: Normal rate and regular rhythm. Heart sounds: No murmur heard. No gallop. Pulmonary: Effort: No respiratory distress. Breath sounds: No wheezing or rales. Musculoskeletal: Right lower leg: No edema. Left lower leg: No edema. Skin: Comments: Small ulcerated nodule (pea sized) right medial buttock, no drainage, non tender, minimalerythema. Neurological: Mental Status: She is alert. Gait: Gait abnormal. Comments: Rollator walker. Assessment and Plan 1. Earache - ICD9: 388.70, ICD10: H92.09 (primary diagnosis) Reassured. 2. Folliculitis - ICD9: 704.8, ICD10: L73.9 Right buttock. If not better, refer to surgery. - DOXYCYCLINE HYCLATE 100 MG TABLET 3. Asthma with chronic obstructive pulmonary disease (COPD) ([facility]) - ICD9: 493.20, ICD10: J44.9 - Continue current medications - Pulmonary consult declined. 4. Tobacco abuse - ICD9: 305.1, ICD10: Z72.0 - Cessation encouraged. 5. Pure hypercholesterolemia - ICD9: 272.0, ICD10: E78.00 Untreated. Reevaluate. - BASIC METABOLIC PNL - HGB A1C - LIPID PANEL BASIC 6. PAD (peripheral artery disease) ([facility]) - ICD9: 443.9, ICD10: I73.9 Stop smoking. - CBC Elvin Diaz MD documented in this encounterKe[facility]04-03-2023 Miscellaneous Notes* Telephone Encounter - Dianna Godoy LPN - 11/07/2022 1:47 PM EDT Left message re: letter. Patient can pickup letter today in [facility] after 3 PM. Dianna Godoy LPN * Telephone Encounter - Elvin Diaz MD - 11/07/2022 12:19 PM EDT Letter printed. * Telephone Encounter - Zoe Cottrell RN - 11/04/2022 10:26 AM EDT Patient calls to ask if provider would write a letter stating she has had back surgery three times and has metal rods, cages, and screws. Patient requesting the letter for travel purposes. Recommended patient request letter from surgeon that placed metal. Patient asking for provider to write the letter. Zoe Cottrell RN documented in this encounterKeenan [facility] Hospital03-31-2023 Miscellaneous Notes* Telephone Encounter - [facility] - 11/04/2022 11:25 AM EDT Patient calling asking for a card for metal detector, mailed to her home. She can be reached at [phone] documented in this encounterKeenan [facility] Hospital03-31-2023 Miscellaneous Notes* Telephone Encounter - [facility] - 11/04/2022 11:23 AM EDT Call from patient requesting refill. Patient asking if she can get refills because she is not due to return until February. Requested Prescriptions Pending Prescriptions Disp Refills methocarbamol (ROBAXIN) 750 mg tablet 90 tablet 0 Sig: Take 1 tablet by mouth three times daily as needed (muscle pain). [facility] [place], [place] Patient last seen 2022 [facility] documented in this encounterKeenan [facility] Hospital03-10-2023 Instructions* Patient Instructions* Cristóbal Knowles MD - 10/14/2022 3:49 PM EST calcium carbonate 1000 mg/day vit d3 800 IU/day documented in this encounterKeenan [facility] Hospital03-10-2023 History of Present illness Narrative* Cristóbal Knowles MD - 10/14/2022 3:31 PM EST s70 medical spine evaluationfor potential metabolic bone issue/ostepenia CONSULTATION Gender: female Ethnicity: Age: [age] year old Chief Complaint c/o low back, right leg pain uses walker not working here for evaluation for possible osteoporosis leg weakness months s/p L2 to ilium instrumented fusion, L3, 4 and 5 laminectomy, L2-3, 3-4 and L5-S1 transforaminal lumbar interbody fusion. She is also 2 months s/p Removal of bilateral iliac screws. last surgery off neurontin recovering alcoholic prn robaxin bilateral wrist fx from falling no other major fx smoking 1.5ppd heavy etoh in past no oral steroids netoh- quit 2017 too much smoking 3/4 ppd mom-has osteoporosis bmd Primary Therapist: SARAHI Transcribe Date/Time: Jun 14 2021 11:01A Dictated by : KELSI DO MD This examination was interpreted and the report reviewed and electronically signed by: KELSI DO MD on Jun 14 2021 11:03AM EST Results-Findings * * *Final Report* * * DATE OF EXAM: Jun 14 2021 10:52AM [facility] 0804 - BD DXA - AXIAL SKELETON / PROCEDURE REASON: Age-related osteoporosis without current pathological fracture * * * * Physician Interpretation * * * * EXAMINATION: BONE DENSITOMETRY HISTORY: 51 years year old Female, presenting for bone mineral density evaluation. Comparison: No available prior study. FINDINGS: The calculated bone mineral density of the lumbar spine is 0.911 g/sq cm, with a corresponding T score of -1.2. The calculated bone mineral density of the right femoral neck is 0.668 g/sq cm, with a corresponding T-score of -1.6. The calculated bone mineral density total of the right hip is 0.784 g/sq cm, with a corresponding T-score of -1.3. FRAX criteria risk of major osteoporotic fracture is 6.1% and risk of hip fracture is calcium none vit d constipation RELEVANT PREVIOUS INVESTIGATIONS: Calcium, Total Date Value Ref Range Status 05/19/2022 8.7 8.5 - 10.2 mg/dL Final 05/18/2022 8.2 (L) 8.5 - 10.2 mg/dL Final 03/03/2022 9.1 8.5 - 10.2 mg/dL Final 03/02/2022 8.7 8.5 - 10.2 mg/dL Final Phosphorus Date Value Ref Range Status 03/01/2022 5.0 (H) 2.7 - 4.8 mg/dL Final 02/27/2022 4.4 2.7 - 4.8 mg/dL Final 02/26/2022 2.5 (L) 2.7 - 4.8 mg/dL Final 02/25/2022 2.5 (L) 2.7 - 4.8 mg/dL Final Alkaline Phosphatase Date Value Ref Range Status 02/11/2022 91 34 - 123 U/L Final 12/13/2021 90 34 - 123 U/L Final 04/28/2021 88 34 - 123 U/L Final 04/21/2015 64 40 - 150 U/L Final TSH Date Value Ref Range Status 04/21/2015 4.810 0.400 - 5.500 uU/mL Final Comment: If the patient is , TSH reference range varies by gestational period: First Trimester 0.1-2.5 uU/mL Second Trimester 0.2-3.0 uU/mL Third Trimester 0.3-3.0 uU/mL 04/19/2005 1.230 0.400 - 5.500 uU/mL Final 01/25/2001 1.473 0.400 - 5.500 uU/mL Final Testosterone Free Date Value Ref Range Status 04/21/2015 7.6 1.0 - 9.0 pg/mL Final Comment: This test was developed and its performance characteristics determined by [facility]'s [facility] [place] [facility] It has not been cleared or approved by the FDA. -[facility] is regulated under CLIA as qualified to perform high-complexity testing. This test is used for clinical purposes. It should not be regarded as investigational or for research. 04/19/2005 4.4 1.0 - 9.0 pg/mL Corrected Comment: This test was developed and its performance characteristics determined by the [facility] of the [facility]. It has not been cleared or approved by the [place] Food and Drug Administration. The FDA has determined that such clearance or approval is not necessary. 12/27/2004 4.9 1.0 - 9.0 pg/mL Final Comment: This test was developed and its performance characteristics determined by the [facility] of the [facility]. It has not been cleared or approved by the [place] Food and Drug Administration. The FDA has determined that such clearance or approval is not necessary. 01/25/2001 2.2 1.0 - 9.0 pg/mL Final Comment: This test was developed and its performance characteristics determined by the [facility] of the [facility]. It has not been cleared or approved by the US Food and Drug Administration. The FDA has determined that such clearance or approval is not necessary. Testosterone Date Value Ref Range Status 04/21/2015 52 20 - 70 ng/dL Final 04/19/2005 38 20 - 70 ng/dL Final 12/27/2004 40 20 - 70 ng/dL Final 01/25/2001 23 20 - 70 ng/dL Final Creatinine Date Value Ref Range Status 05/19/2022 0.68 0.58 - 0.96 mg/dL Final 05/18/2022 0.86 0.58 - 0.96 mg/dL Final 03/03/2022 0.66 0.58 - 0.96 mg/dL Final 03/02/2022 0.71 0.58 - 0.96 mg/dL Final FSH Date Value Ref Range Status 04/21/2015 8.6 mU/mL Final Comment: Reference range: Follicular: 2-11 Midcycle: 10-30 Luteal: 1-9 Post Pallavi: 20-100 Male: 1.0-10.0 04/19/2005 5.3 mU/mL Final Comment: Ref. Range: Follicular 2-11 Luteal 1-9 Post-pallavi 20-100 01/25/2001 11.3 mU/mL Final Comment: Ref. Range: Follicular 2-11 Luteal 1-9 Post-pallavi 20-100 Estradiol 17B Date Value Ref Range Status 12/27/2004 201 pg/mL Final Comment: Ref. Range: Early Foll.=20-82 Late Foll.=80-378 Luteal=50-150 Post menopause=<30 Protein, Total Date Value Ref Range Status 02/11/2022 7.7 6.3 - 8.0 g/dL Final 12/13/2021 7.3 6.3 - 8.0 g/dL Final 04/28/2021 7.2 6.3 - 8.0 g/dL Final 04/21/2015 6.8 6.0 - 8.4 g/dL Final Albumin Date Value Ref Range Status 02/11/2022 4.9 3.9 - 4.9 g/dL Final 12/13/2021 4.8 3.9 - 4.9 g/dL Final 04/28/2021 4.7 3.9 - 4.9 g/dL Final 04/21/2015 4.2 3.5 - 5.0 g/dL Final Diagnoses (Problem list): ACTIVE PROBLEM LIST Allergy-Induced Asthma, Mild Intermittent, Uncomplicated Spinal Stenosis, Lumbar Region With Neurogenic Claudication Acid Reflux Hirsutism Pure Hypercholesterolemia Former Smoker Lumbar Stenosis With Neurogenic Claudication S/P Lumbar Spinal Fusion Poor Compliance Orthopedic Aftercare Generalized Weakness History of Dvt (Deep Vein Thrombosis) S/P Hardware Removal Asthma With Chronic Obstructive Pulmonary Disease (Copd) ([facility]) PAST MEDICAL HISTORY Diagnosis Date Acid reflux Acute gastritis without mention of hemorrhage 09/14/2011 Allergy-induced asthma, mild intermittent, uncomplicated Asthma Chronic midline low back pain without sciatica 05/17/2016 Duodenitis 09/14/2011 Duodenitis without mention of hemorrhage Facet arthropathy, lumbar 05/17/2016 Hemorrhage of gastrointestinal tract, unspecified Hirsutism 09/16/2019 Pure hypercholesterolemia 06/28/2021 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 Spinal stenosis, lumbar region, without neurogenic claudication 03/27/2015 Suicidal ideation 03/03/2022 Tobacco use disorder 04/11/2007 Vascular occlusion 01/07/2022 Intraoperative L common iliac artery occlusion PAST SURGICAL HISTORY Procedure Laterality Date ESOPHAGOGASTRODUODENOSCOPY TRANSORAL DIAGNOSTIC 09/14/2011 EGD ILIAC REVASC ADD-ON Left 01/07/2022 L MCKAYLA endarterectomy LUMBAR SPINE FUSION COMBINED 02/23/2022 L2 to ilium instrumented fusion, L3, 4 and 5 laminectomy, L2-3, 3-4 and L5-S1 transforaminal lumbarinterbody fusion. LUMBAR SPINE FUSION,ANTER [facility] 01/07/2022 ALIF L4-L5. PAST SURGICAL HISTORY OF 04/29/2012 excision of back lump SIGMOIDOSCOPY FLX DX W/COLLJ SPEC BR/WA IF PFRMD 09/14/2011 Sigmoidoscopy, flexible FAMILY HISTORY Problem Relation Age of Onset GI Mother colon polyps Cancer Mother Lung/Uterine/ cervical Allergies Mother GI Father colon polyps Diabetes Father Coronary Artery Disease Father Stents Heart Father age 85 Dementia Father No Known Problems Sister No Known Problems Sister Diabetes Brother Kidney Disease Brother dialysis Heart Failure Brother Allergies Daughter Heart Daughter PDA closure Allergies Daughter Breast Cancer Maternal Grandmother Allergies Maternal Grandfather Breast Cancer Paternal Grandmother Allergies Paternal Grandmother Diabetes Paternal Grandfather Anesthesia Problems No Family History Anesthesia No Family History Social History Tobacco Use Smoking status: Former Packs/day: 2.00 Years: 38.00 Pack years: 76.00 Types: Cigarettes Quit date: 10/23/2021 Years since quittin.9 Smokeless tobacco: Never Tobacco comments: started age 13. Vaping Use Vaping Use: Never used Substance Use Topics Alcohol use: Not Currently Drug use: Not Currently Comment: experimented in 20s Medications: Present: Current Outpatient Medications Medication Sig methocarbamol (ROBAXIN) 750 mg tablet Take 1 tablet by mouth three times daily as needed (muscle pain). ibuprofen (MOTRIN ORAL) Take by mouth. polyethylene glycol 3350 (MIRALAX ORAL) Take by mouth. sennosides (SENNACON ORAL) Take by mouth. ProAir RespiClick 90 mcg/actuation breath activated (albuterol sulfate) Inhale 2 Puffs as instructed every 4 hours as needed. diphenhydramine HCl (BENADRYL ALLERGY ORAL) Take by mouth. 2 tablets qhs triamcinolone acetonide (NASACORT AQ NASAL) Use 1 [place] in the nose. qAM as needed docusate sodium (COLACE) 100 mg capsule Take 1 capsule by mouth twice daily. fexofenadine (STANLEY) 180 mg tablet Take 180 mg by mouth once daily. famotidine (PEPCID ORAL) Take 1 tablet by mouth twice daily. gabapentin (NEURONTIN) 300 mg capsule Take 1 capsule by mouth as needed (Take 3 capsules by mouth daily at bedtime AND 2 capsules twice daily with meals.) for up to 30 days. (Patient not taking: Reported on 10/14/2022) spironolactone (ALDACTONE) 50 mg tablet Take 1 tablet by mouth twice daily. No current facility-administered medications for this visit. Physical Exam: BP 137/64 Pulse 92 Ht 167.6 cm (5' 6) Wt 78.5 kg (173 lb) LMP 03/02/2015 SpO2 100% BMI27.92 kg/m mild limp + lumbar paraspinal tenderness surgical site is healed fabers neg mild scoliosis no Le motor deficits except right 4.5/5 ankle dorsiflexion IMPRESSION: The patient has Osteopenia lowest Tscore -1.6 femur no fragility fx Day Risk Factors: etoh use in past current smoker 1.5ppd frax 6% risk for major osteoporotic fx <1% chance for hip fx PLAN: bmd results discussed - labs cbc, cmp,pth, po4, vit 25 oh - continue swimming -smoking cessation counselling - start calcium 1000 mg,day, vit d 800IU/day - will hold off antiresorptives as frax index does not reach threshold for starting meds, mild osteopenia - may consider more aggresive treatment if new fx, screw loosening, fusion failure but patient seems to be healing well from surgery - repeat bmd 2 years Consultation requested by Dr. Ambrose Birch for an opinion regarding osteopeniaand my final recommendations will be communicated back to the requesting physician by way of shared medical record or letter by US mail. I spent 30 minutes in this visit, with more than 50% of the time devoted to patient counseling. Cristóbal Knowles MD cc: PCP: Elvin Diaz [facility] [place] [address] documented in this encounterKe[facility] Miscellaneous Notes* Telephone Encounter - Elsy Glover Sec - 09/19/2022 11:08 AM EST Call from patient requesting refill. Requested Prescriptions Pending Prescriptions Disp Refills gabapentin (NEURONTIN) 300 mg capsule 210 capsule 3 Sig: Take 1 capsule by mouth as needed (Take 3 capsules by mouth daily at bedtime AND 2 capsules twice daily with meals.) for up to 30 days. methocarbamol (ROBAXIN) 750 mg tablet 90 tablet 1 Sig: Take 1 tablet by mouth three times daily. Patient last seen 09-12-22 Elsy Hill documented in this encounterKeen[facility]02-[facility]23 Instructions* Patient Instructions* Kriss Montes - 09/18/2022 11:56 AM EST ASSESSMENT/PLAN: 1. Acute non-recurrent pansinusitis - ICD9: 461.8, ICD10: J01.40 (primary diagnosis) - Will begin treatment with Augmentin 875 mg PO BID for 7 days - Supportive care with plenty of fluids, rest, and analgesia prn. - Follow up in 3-5 days if symptoms persist or worsen. 2. OME (otitis media with effusion), bilateral - ICD9: 381.4, ICD10: H65.93 - Discussed etiology of effusion and expected timeline and sequalae -Continue daily use of Allergy medications Kriss Montes APRN-student SINUSITIS: You have sinusitis, an infection of the sinus cavities around the nose. This infection usually follows a respiratory illness; it can also be related to allergies, changes in atmospheric pressure (flying, diving), or anything that blocks nasal drainage. Symptoms include: headache, facial pain, a thick nasal discharge, congestion, and cough. The treatment includes antibiotic therapy, increasing oral fluids, and pain medication if needed. Nose spray decongestants (Afrin, Doug-Synephrine) and oral decongestants may be needed to reduce congestion and drainage. Rarely the sinus must be irrigated to remove the infected material. Sinusitis can lead to serious complications by spreading to other areas such as the eye or brain. Please call your doctor or return here right away if you have any of the following more serious symptoms: Unusual swelling around the eye or trouble seeing. Increasing pain, severe headache, or toothache. Nausea, vomiting, or unusual drowsiness. documented in this encounterKe[facility]02-[facility]23 History of Present illness Narrative* Izaiah Medina APRN.[employer] - 09/18/2022 11:25 AM EST This note was created using Bettyvision[employer]. Subjective Elsy Dinero is a 52 year old female sinus pain and pressure that started 3 weeks ago and has gotten progressively worse. At home COVID test taken three times all negative, most recent was takenyesterday. Takes Nasocort AQ daily, but has used it two times a day for for a couple days. Reports many environmental allergies for which she takes allergy medicine daily. Review of Systems Constitutional: Positive for chills and fatigue. Negative for diaphoresis and fever. HENT: Positive for congestion, hearing loss, postnasal drip, rhinorrhea, sinus pressure, sinus painand sore throat. Negative for ear discharge and ear pain. Eyes: Negative for pain, itching and visual disturbance. Respiratory: Positive for cough (productive). Negative for shortness of breath and wheezing. Cardiovascular: Negative for chest pain. Gastrointestinal: Negative for abdominal pain, diarrhea, nausea and vomiting. Skin: Negative for rash. Neurological: Positive for headaches (leeannke, 02/13). Negative for light-headedness. PAST MEDICAL HISTORY Diagnosis Date Acid reflux Acute gastritis without mention of hemorrhage 09/14/2011 Allergy-induced asthma, mild intermittent, uncomplicated Asthma Chronic midline low back pain without sciatica 05/17/2016 Duodenitis 09/14/2011 Duodenitis without mention of hemorrhage Facet arthropathy, lumbar 05/17/2016 Hemorrhage of gastrointestinal tract, unspecified Hirsutism 09/16/2019 Pure hypercholesterolemia 06/28/2021 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 Spinal stenosis, lumbar region, without neurogenic claudication 03/27/2015 Suicidal ideation 03/03/2022 Tobacco use disorder 04/11/2007 Vascular occlusion 01/07/2022 Intraoperative L common iliac artery occlusion PAST SURGICAL HISTORY Procedure Laterality Date ESOPHAGOGASTRODUODENOSCOPY TRANSORAL DIAGNOSTIC 09/14/2011 EGD ILIAC REVASC ADD-ON Left 01/07/2022 L MCKAYLA endarterectomy LUMBAR SPINE FUSION COMBINED 02/23/2022 L2 to ilium instrumented fusion, L3, 4 and 5 laminectomy, L2-3, 3-4 and L5-S1 transforaminal lumbarinterbody fusion. LUMBAR SPINE FUSION,ANTER [facility] 01/07/2022 ALIF L4-L5. PAST SURGICAL HISTORY OF 04/29/2012 excision of back lump SIGMOIDOSCOPY FLX DX W/COLLJ SPEC BR/WA IF PFRMD 09/14/2011 Sigmoidoscopy, flexible ALLERGIES Prednisone, Zyban [Bupropion], Animal Hair-Dander [Homeopathic Products], Cats, Dogs, Niacin, Pollen, Ciprofloxacin, Grass Pollen, and Trees MEDICATIONS ibuprofen (MOTRIN ORAL) Take by mouth. polyethylene glycol 3350 (MIRALAX ORAL) Take by mouth. sennosides (SENNACON ORAL) Take by mouth. methocarbamol (ROBAXIN) 750 mg tablet Take 750 mg by mouth three times daily. spironolactone (ALDACTONE) 50 mg tablet Take 1 tablet by mouth twice daily. ProAir RespiClick 90 mcg/actuation breath activated (albuterol sulfate) Inhale 2 Puffs as instructed every 4 hours as needed. diphenhydramine HCl (BENADRYL ALLERGY ORAL) Take by mouth. 2 tablets qhs triamcinolone acetonide (NASACORT AQ NASAL) Use 1 [place] in the nose. qAM as needed gabapentin (NEURONTIN) 300 mg capsule Take 1 capsule by mouth as needed (Take 3 capsules by mouth daily at bedtime AND 2 capsules twice daily with meals.) for up to 30 days. docusate sodium (COLACE) 100 mg capsule Take 1 capsule by mouth twice daily. fexofenadine (STANLEY) 180 mg tablet Take 180 mg by mouth once daily. famotidine (PEPCID ORAL) Take 1 tablet by mouth twice daily. amoxicillin-clavulanic acid (AUGMENTIN) 875-125 mg per tablet Take 1 tablet by mouth twice daily for 7 days. FAMILY HISTORY Problem Relation Age of Onset GI Mother colon polyps Cancer Mother Lung/Uterine/ cervical Allergies Mother GI Father colon polyps Diabetes Father Coronary Artery Disease Father Stents Heart Father age 85 Dementia Father No Known Problems Sister No Known Problems Sister Diabetes Brother Kidney Disease Brother dialysis Heart Failure Brother Allergies Daughter Heart Daughter PDA closure Allergies Daughter Breast Cancer Maternal Grandmother Allergies Maternal Grandfather Breast Cancer Paternal Grandmother Allergies Paternal Grandmother Diabetes Paternal Grandfather Anesthesia Problems No Family History Anesthesia No Family History Social History Tobacco Use Smoking status: Former Packs/day: 2.00 Years: 38.00 Pack years: 76.00 Types: Cigarettes Quit date: 10/23/2021 Years since quittin.9 Smokeless tobacco: Never Tobacco comments: started age 13. Vaping Use Vaping Use: Never used Substance Use Topics Alcohol use: Not Currently Drug use: Not Currently Comment: experimented in 20s Objective BP 120/78 Pulse 80 Temp 36.5 C (97.7 F) (Tympanic) Resp 18 Wt 78.6 kg (173 lb 3.2 oz) LMP03/02/2015 SpO2 99% BMI 27.96 kg/m Physical Exam Constitutional: General: She is not in acute distress. Appearance: She is obese. HENT: Head: Normocephalic. Right Ear: External ear normal. A middle ear effusion is present. Left Ear: External ear normal. A middle ear effusion is present. Nose: Congestion present. Right Sinus: Maxillary sinus tenderness and frontal sinus tenderness present. Left Sinus: Maxillary sinus tenderness and frontal sinus tenderness present. Mouth/Throat: Mouth: Mucous membranes are moist. Pharynx: Posterior oropharyngeal erythema present. Eyes: Conjunctiva/sclera: Conjunctivae normal. Cardiovascular: Rate and Rhythm: Normal rate and regular rhythm. Heart sounds: Normal heart sounds. Pulmonary: Effort: Pulmonary effort is normal. Breath sounds: Normal breath sounds. Lymphadenopathy: Cervical: No cervical adenopathy. Skin: General: Skin is warm. Neurological: Mental Status: She is alert. Mental status is at baseline. Assessment and Plan ASSESSMENT/PLAN: 1. Acute non-recurrent pansinusitis - ICD9: 461.8, ICD10: J01.40 (primary diagnosis) - Will begin treatment with Augmentin 875 mg PO BID for 7 days - Supportive care with plenty of fluids, rest, and analgesia prn. - Follow up in 3-5 days if symptoms persist or worsen. 2. OME (otitis media with effusion), bilateral - ICD9: 381.4, ICD10: H65.93 - Discussed etiology of effusion and expected timeline and sequalae -Continue daily use of Allergy medications Kriss Montes APRN-student TEACHING PROVIDER (Physician/PA/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) NOTE OF PERSONAL INVOLVEMENT IN CARE: I have personally seen and examined the patient and performed the medical decision-making components. I have reviewed the Advanced Practice Registered Nurse (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) Student's documentation and verified the findings in the note as written. Any additions or changes are noted in bold/italics. Signature: Izaiah Medina Date: 09/18/2022 Time: 12:00 PM documented in this encounterKeenan [facility]02-06-2023 History of Present illness Narrative* Ambrose Birch MD - 09/12/2022 1:30 PM EST SPINE SURGERY FOLLOW UP This is an in-person visit. SERVICE DATE: 09/12/2022 SURGERY DATE: 02/23/2022 Elsy Dinero is a 52 year old female who presents 7 months s/p L2 to ilium instrumented fusion, L3, 4 and 5 laminectomy, L2-3, 3-4 and L5-S1 transforaminal lumbar interbody fusion. She is also 2months s/p Removal of bilateral iliac screws. At [facility], the patient reported low back pain. She stated her right lower leg was sensitive to sensation. She stated she had gained weight. She stated she was having trouble remembering things. She stated she felt her body was looser and not as stiff. She stated she could not sit or stand for long periods of time. She stated she was working on her walking. She stated she was interested in doing morephysical therapy and starting aquatic therapy. She expressed anxiety and stress from her pain and walking issues. Today, the patient reports spasms in her groin radiating to the legs down to the feet. She states she is doing physical therapy. She states she takes gabapentin and ibuprofen to manage her symptoms. She states she is not working at this moment. ANTIPLATELET OR ANTICOAGULATION STATUS: No Patient Entered Questionnaires Spine Questions 04/27/2021 06/10/2021 12/20/2021 Pain Location: Lower back Lower back Lower back Pain Duration: More than 5 years - - Symptoms from neck/cervical spine: No No No Employment Status: - - Working now Involved in law suit/legal claim: - - No Spine Red Flags 04/27/2021 Any type of cancer: No Unexplained fever: No Bowel or bladder disfunction: Yes Unintentional weight loss: No Osteoporosis: No PROMIS Score Percentiles Physical Health 04/27/2021 06/10/2021 12/20/2021 Physical Function Percentile 3 2 2 Sleep Percentile 4 4 21* Fatigue Percentile 14 1 4 Pain Interference Percentile 1 1 4 PROMIS SOCIAL ROLE SCORE 04/27/2021 06/10/2021 12/20/2021 Social Role Satisfaction Percentile 10 8 18* PROMIS Global Health Scale 05/17/2016 04/27/2021 12/20/2021 Physical Health Percentile 7 4 2 Mental Health Percentile 26* 43 13 Percentiles provide an indication of how the patient's score ranks in relation to the general population. Higher percentile rankings indicate better function/quality of life. 50th percentile is the average of the general population and indicates half of respondents had a worse score. Depression Screening: PHQ-9 04/27/2021 06/10/2021 12/20/2021 Score 9 10 10 PHQ-9 Self-harm Question 04/27/2021 06/10/2021 12/20/2021 Thoughts that you would be better off , or of hurting yourself in some way 0 0 0 PHQ-9 Self-Harm (Item 9) response options: 0 Not at all 1 Several days 2 More than half the days 3 Nearly every day PHQ-9 Levels: 0-4 No to mild depression 5-9 Mild depression 10-14 Moderate depression 15-19 Moderately severe depression 20-27 Severe depression PHYSICAL EXAM: BP 126/60 (BP Site: Right Arm, BP Position: Sitting, BP Cuff Size: Large Adult) Pulse 94 Ht 167.6 cm (5' 6) Wt 78.5 kg (173 lb) LMP 03/02/2015 BMI 27.92 kg/m GENERAL APPEARANCE: Well nourished, well developed, and no apparent distress. NEURO PSYCH: Patient oriented to person, place, and time. Mood pleasant. Benign affect. MUSCULOSKELETAL VISUAL INSPECTION: incision well healed CERVICAL: WNL THORACIC: WNL LUMBAR: WNL MOTOR: 5/5 in all muscle groups. SENSORY: Normal sensory exam GAIT: Normal. REFLEXES: +2 to bilateral U/L extremities. STRAIGHT LEG TEST: Normal Good sagittal balance. NEURO TESTS: None DATA REVIEW No additional images reviewed today ASSESSMENT/PLAN 7 months s/p L2 to ilium instrumented fusion, L3, 4 and 5 laminectomy, L2-3, 3-4 and L5-S1 transforaminal lumbar interbody fusion. She is also 2 months s/p Removal of bilateral iliac screws. Elsy Dinero will continue with medical management of his/her condition. 1. Go down to twice a day on Gabapentin when ready. 2. Follow up: 6 months I spent a total of 14 minutes on the date of the service which included preparing to see the patient, [id number] patient care, completing clinical documentation, obtaining and/or reviewing separately obtained history, performing a medically appropriate examination, and counseling and educating the patient/family/caregiver. Scribe Attestation: By signing my name below, ICaroline, attest that this documentation has been prepared under the direction and in the presence of Dr. Ambrose Birch.Electronically Signed: Ana Maria Kimball. September 12, 2022 1:38 PM Provider Attestation: Ambrose Thakkar MD, personally performed the services described in this documentation. All medical record entries made by the scribe were at my direction and in my presence. I have reviewed the chartand discharge instructions (if applicable) and agree that the record reflects my personal performance and is accurate and complete. I spent a total of 10 minutes on the date of the service which included preparing to see the patient, [id number] patient care, completing clinical documentation, performing a medically appropriate examination, counseling and educating the patient/family/caregiver, and ordering medications, tests,or procedures Electronically Signed: Ambrose Birch MD September 12, 2022 2:26 PM documented in this encounterKeenan [facility] Hospital12-27-2022 History of Present illness Narrative* Clare Hunter, RT(R) - 08/02/2022 11:40 AM EST Radiology Service Progress Note PATIENT NAME: Elsy Dinero DATE OF SERVICE: August 02, 2022 TIME: 12:31 PM PATIENT IDENTITY VERIFICATION COMPLETED USING TWO (2) IDENTIFIERS: Name and Date of confirmedby patient verbally. FALL SCREENING: Has the patient had 2 falls in the last year or 1 fall with injury or currently using an Ambulatory Assistive Device (Walker, Cane, Wheelchair, Crutches, etc.)? No PATIENT GENDER DATA: Female. status: : No status: NO. PATIENT RELEVANT IMPLANT DATA REVIEWED: Yes RADIOLOGY DEPARTMENT: CT; Exam(s) Completed: Spine PERIPHERAL IV DATA: Not applicable SIGNED BY: RT Shahbaz(R) August 02, 2022 12:31 PM documented in this encounterKeenan Private Hospital12-15-2022 Miscellaneous Notes* Telephone Encounter - Stanley Deluca RN - 07/21/2022 1:35 PM EST Forms printed and reviewed. No signature required. * Telephone Encounter - Dina Aguirre - 07/21/2022 1:06 PM EST Received discharge summary from [facility] that requires physician signature. Scanned into [employer]. documented in this encounterKeenan [facility] Hospital12-12-2022 Miscellaneous Notes* Telephone Encounter - Stanley Deluca RN - 07/18/2022 1:59 PM EST Returned pt call. Informed pt that an experienced pain psychologist will contact her and her initial appointment will need to be in person. Verbalizes understanding. Requested a letter for work indicating her goals. Will send through [employer]. * Telephone Encounter - Elsy Hill - 07/18/2022 11:35 AM EST Patient returned nurse's call. * Telephone Encounter - Stanley Deluca RN - 07/18/2022 11:15 AM EST Call placed to patient. Left message on unidentified voicemail for a call back. Provided with phonenumber. * Telephone Encounter - Stanley Deluca RN - 07/18/2022 11:15 AM EST ----- Message from Ambrose Birch MD sent at 07/18/2022 11:03 AM EST ----- Please call patient and let her know she will be contacted by a very experiences pain psychologist and the initial appt will need to be in person. Also, I asked Elsy to give her a work letter so hopefully that is all she needs. Thanks documented in this encounterKeenan Private Hospital12-12-2022 History of Present illness Narrative* Caroline Natanael - 07/18/2022 8:45 AM EST SPINE SURGERY FOLLOW UP This is an in-person visit. SERVICE DATE: 07/17/2022 SURGERY DATE: 02/23/2022 Elsy Dinero is a 52 year old female who presents 5 months s/p L2 to ilium instrumented fusion, L3, 4 and 5 laminectomy, L2-3, 3-4 and L5-S1 transforaminal lumbar interbody fusion. She is also 2months s/p Removal of bilateral iliac screws. At [facility], the patient reported low back pain. She had been doing physical therapy. She was not walking as much as she used to. She was experiencing drop foot. She was interested in aquatic therapy. Herstaples were removed. Today, the patient reports low back pain. She states her right lower leg is sensitive to sensation.She states she has gained weight. She states she is having trouble remembering things. She states she feels her body is looser and not as stiff. She states she cannot sit or stand for long periods oftime. She states she is working on her walking, but [place] so she can get tired easily. She states she is interested in doing more physical therapy and starting aquatic therapy. She expresses anxiety and stress from her pain and walking issues. PAIN EVALUATION 07/18/2022 0805 Pain Level: 9 Pain Location: Back-Lower Frequency: Continuous ANTIPLATELET OR ANTICOAGULATION STATUS: No Patient Entered Questionnaires Spine Questions 04/27/2021 06/10/2021 12/20/2021 Pain Location: Lower back Lower back Lower back Pain Duration: More than 5 years - - Symptoms from neck/cervical spine: No No No Employment Status: - - Working now Involved in law suit/legal claim: - - No Spine Red Flags 04/27/2021 Any type of cancer: No Unexplained fever: No Bowel or bladder disfunction: Yes Unintentional weight loss: No Osteoporosis: No PROMIS Score Percentiles Physical Health 04/27/2021 06/10/2021 12/20/2021 Physical Function Percentile 3 2 2 Sleep Percentile 4 4 21* Fatigue Percentile 14 1 4 Pain Interference Percentile 1 1 4 PROMIS SOCIAL ROLE SCORE 04/27/2021 06/10/2021 12/20/2021 Social Role Satisfaction Percentile 10 8 18* PROMIS Global Health Scale 05/17/2016 04/27/2021 12/20/2021 Physical Health Percentile 7 4 2 Mental Health Percentile 26* 43 13 Percentiles provide an indication of how the patient's score ranks in relation to the general population. Higher percentile rankings indicate better function/quality of life. 50th percentile is the average of the general population and indicates half of respondents had a worse score. Depression Screening: PHQ-9 04/27/2021 06/10/2021 12/20/2021 Score 9 10 10 PHQ-9 Self-harm Question 04/27/2021 06/10/2021 12/20/2021 Thoughts that you would be better off , or of hurting yourself in some way 0 0 0 PHQ-9 Self-Harm (Item 9) response options: 0 Not at all 1 Several days 2 More than half the days 3 Nearly every day PHQ-9 Levels: 0-4 No to mild depression 5-9 Mild depression 10-14 Moderate depression 15-19 Moderately severe depression 20-27 Severe depression PHYSICAL EXAM: BP 135/63 Pulse 88 Wt 78.9 kg (174 lb) LMP 03/02/2015 SpO2 96% BMI 28.08 kg/m GENERAL APPEARANCE: Well nourished, well developed, and no apparent distress. NEURO PSYCH: Patient oriented to person, place, and time. Mood pleasant. Benign affect. MUSCULOSKELETAL VISUAL INSPECTION: incision well healed CERVICAL: WNL THORACIC: WNL LUMBAR: WNL MOTOR: 5/5 in all muscle groups. SENSORY: Normal sensory exam GAIT: Normal. REFLEXES: +2 to bilateral U/L extremities. STRAIGHT LEG TEST: Normal Good sagittal balance. NEURO TESTS: None DATA REVIEW [facility] records independently reviewed Imaging and outside records independently reviewed Images independently reviewed with the patient CT LUMBAR SPINE WO IVCON 05/05/2022 IMPRESSION: New minimal compression fractures involving L1 and L2 vertebral body superior endplates. Minimal overall vertebral body height loss with no retropulsion. Previously seen right iliac fracture is healing. Patent canal and foramina. Anatomic Thoracic/Lumbar Variant: None. L4-5 is considered the level of the iliac crest and assume there are 5 lumbar-type vertebrae. ASSESSMENT 5 months s/p L2 to ilium instrumented fusion, L3, 4 and 5 laminectomy, L2-3, 3-4 and L5-S1 transforaminal lumbar interbody fusion. 2 months s/p Removal of bilateral iliac screws. PLAN Elsy Dinero will continue with medical management of his/her condition and has a condition that requires further workup. Consults: Physical Therapy & Aquatic Therapy Imaging: CT Lumbar Spine WO IVCON. Follow up: Six weeks I spent a total of 15 minutes on the date of the service which included preparing to see the patient, [id number] patient care, completing clinical documentation, obtaining and/or reviewing separately obtained history, performing a medically appropriate examination, and counseling and educating the patient/family/caregiver. Scribe Attestation: By signing my name below, ICaroline, attest that this documentation has been prepared under the direction and in the presence of Dr. Ambrose Birch.Electronically Signed: Ana Maria Kimball. July 18, 2022 9:05 AM Provider Attestation:Efra, Dr. Ambrose Birch, personally performed the services described in this documentation. All medical record entries made by the scribe were at my direction and in my presence. I have reviewed the chart and discharge instructions (if applicable) and agree that the record reflects my personal performance and is accurate and complete. Electronically Signed: Dr. Ambrose Birch. July 18, 2022 9:05 AM documented in this encounterKeenan Private Hospital12-06-2022 Miscellaneous Notes* Letter - Mammography Coordinator - 07/12/2022 10:50 AM EST July 12, 2022 PID: [id number] Elsy Dinero [address] [place] [address] Dear Ms. Dinero, We are pleased to inform you that the results of your recent breast imaging exam on 07/11/2022 are normal. Early detection of cancer is very important. We also understand recommendations regarding breast cancer screening are controversial. Please discuss with your primary care provider which strategy is best for you and whether a mammogram is right for you. Your imaging studies and report will be [facility] as part of your permanent medical record and are available for your continuing care. Thank you for allowing us to help in meeting your health care needs. Sincerely, Dr. Garcia Interpreting Radiologist [facility] (Normal over 40) documented in this encounterKeenan Private Hospital12-05-2022 History of Present illness Narrative* Gee Betts Mammo Tech - 07/11/2022 10:10 AM EST Radiology Service Progress Note PATIENT NAME: Elsy Dinero DATE OF SERVICE: July 11, 2022 TIME: 10:20 AM PATIENT IDENTITY VERIFICATION COMPLETED USING TWO (2) IDENTIFIERS: Name and Date of confirmedby patient verbally. FALL SCREENING: Has the patient had 2 falls in the last year or 1 fall with injury or currently using an Ambulatory Assistive Device (Walker, Cane, Wheelchair, Crutches, etc.)? No PATIENT GENDER DATA: Female. status: : No status: NO. PATIENT RELEVANT IMPLANT DATA REVIEWED: Not Applicable RADIOLOGY DEPARTMENT: Mammography PERIPHERAL IV DATA: Not applicable SIGNED BY: Mayco Gleason July 11, 2022 10:20 AM documented in this encounterKeenan Private Hospital12-02-2022 Miscellaneous Notes* Telephone Encounter - Estrellita Gardiner Ma - 07/08/2022 10:32 AM EST Surgery has been scheduled as requested. * Telephone Encounter - An Dorman Ma - 07/07/2022 10:46 AM EST Patient scheduled for Right index finger excision ganglion cyst on 08/25/21 under local in [place]. Surgical request completed. Post op appointments scheduled and mailed to patient. documented in this encounterKeenan Private Hospital12-01-2022 History of Present illness Narrative* Mark Foster MD - 07/07/2022 10:04 AM EST Mark Foster MD Department of Orthopaedics Orthopaedics [address] [place] [id number] Dept: [phone] Dept July 07, 2022 CHIEF COMPLAINT: New, Pain, and Swelling of the Right Index Finger (Cyst) HPI New patient. Visit for gagnglion cyst of the R index finger. Referred by Dr. Mendez. Reports discomfort in finger that has increased over the last 3 months Prema Melara RN Patient presents with: Right Index Finger - New, Pain, Swelling: Cyst AMB ROOMING INTAKE FLOWSHEET DATA Pain Description: Aching, Throbbing Duration Units: Months Frequency: Continuous Comments: nothing helps with discomfort. Doesnt bother her when finger not in use, however she is using a walker for back surgery and now it is very uncomfortable. ASSESSMENT: M67.449 Ganglion cyst of finger PLAN: I think is most likely that is a bit of a inclusion cyst as opposed to purely ganglion but certainly similar characteristics. The risks, benefits, alternatives and potential complications were discussed. I did review with her that it is in a bit of an awkward position for surgical healing but she would really like to get it removed due to the discomfort that is causing. We will get her scheduled for a local procedure. FOLLOW UP INSTRUCTIONS: Schedule when available Ms. Elsy Dinero was advised as to contrast therapies and/or to take analgesics/anti-inflammatories as needed and all contraindications were reviewed. OBJECTIVE: Ms. Elsy Dinero is a pleasant 52 year old in no apparent distress. Gen:LMP 03/02/2015 nl development, non obese, no deformities ENT: Normocephalic, normal hearing, moist mucosa CV: Pulses:Radial= 2+ and symmetric, capillary refill < 2 secs, no peripheral edema/varicosities Skin: no rash, bruising or lesions. Good turgor. Psych: cooperative and appropriate, alert and oriented x 3, good mood and affect. Musculoskeletal: Right index finger at the flexor side of the DIP joint has a slightly raised soft tissue mass likely consistent with a inclusion cyst or granuloma as opposed to a ganglion though certainly possible. Other possibility is a giant cell tumor. IMAGING: Deferred Supporting Subjective Information Below: Past Medical History: PAST MEDICAL HISTORY Diagnosis Date Acid reflux Acute gastritis without mention of hemorrhage 09/14/2011 Allergy-induced asthma, mild intermittent, uncomplicated Asthma Chronic midline low back pain without sciatica 05/17/2016 Duodenitis 09/14/2011 Duodenitis without mention of hemorrhage Facet arthropathy, lumbar 05/17/2016 Hemorrhage of gastrointestinal tract, unspecified Hirsutism 09/16/2019 Pure hypercholesterolemia 06/28/2021 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 Spinal stenosis, lumbar region, without neurogenic claudication 03/27/2015 Suicidal ideation 03/03/2022 Tobacco use disorder 04/11/2007 Vascular occlusion 01/07/2022 Intraoperative L common iliac artery occlusion Past Surgical History: PAST SURGICAL HISTORY Procedure Laterality Date ESOPHAGOGASTRODUODENOSCOPY TRANSORAL DIAGNOSTIC 09/14/2011 EGD ILIAC REVASC ADD-ON Left 01/07/2022 L MCKAYLA endarterectomy LUMBAR SPINE FUSION COMBINED 02/23/2022 L2 to ilium instrumented fusion, L3, 4 and 5 laminectomy, L2-3, 3-4 and L5-S1 transforaminal lumbarinterbody fusion. LUMBAR SPINE FUSION,ANTER APPRCH 01/07/2022 ALIF L4-L5. PAST SURGICAL HISTORY OF 04/29/2012 excision of back lump SIGMOIDOSCOPY FLX DX W/COLLJ SPEC BR/WA IF PFRMD 09/14/2011 Sigmoidoscopy, flexible Family History: FAMILY HISTORY Problem Relation Age of Onset GI Mother colon polyps Cancer Mother Lung/Uterine/ cervical Allergies Mother GI Father colon polyps Diabetes Father Coronary Artery Disease Father Stents Heart Father age 85 Dementia Father No Known Problems Sister No Known Problems Sister Diabetes Brother Kidney Disease Brother dialysis Heart Failure Brother Allergies Daughter Heart Daughter PDA closure Allergies Daughter Breast Cancer Maternal Grandmother Allergies Maternal Grandfather Breast Cancer Paternal Grandmother Allergies Paternal Grandmother Diabetes Paternal Grandfather Anesthesia Problems No Family History Anesthesia No Family History Social History: Social History Tobacco Use Smoking status: Former Packs/day: 2.00 Years: 38.00 Pack years: 76.00 Types: Cigarettes Quit date: 10/23/2021 Years since quittin.7 Smokeless tobacco: Never Tobacco comments: started age 13. Vaping Use Vaping Use: Never used Substance Use Topics Alcohol use: Not Currently Drug use: Not Currently Comment: experimented in 20s Medications: Current Outpatient Medications Medication Sig polyethylene glycol 3350 (MIRALAX ORAL) Take by mouth. sennosides (SENNACON ORAL) Take by mouth. methocarbamol (ROBAXIN) 750 mg tablet Take 750 mg by mouth three times daily. spironolactone (ALDACTONE) 50 mg tablet Take 1 tablet by mouth twice daily. ProAir RespiClick 90 mcg/actuation breath activated (albuterol sulfate) Inhale 2 Puffs as instructed every 4 hours as needed. diphenhydramine HCl (BENADRYL ALLERGY ORAL) Take by mouth. 2 tablets qhs triamcinolone acetonide (NASACORT AQ NASAL) Use 1 [place] in the nose. qAM as needed gabapentin (NEURONTIN) 300 mg capsule Take 1 capsule by mouth as needed (Take 3 capsules by mouth daily at bedtime AND 2 capsules twice daily with meals.) for up to 30 days. docusate sodium (COLACE) 100 mg capsule Take 1 capsule by mouth twice daily. fexofenadine (STANLEY) 180 mg tablet Take 180 mg by mouth once daily. famotidine (PEPCID ORAL) Take 1 tablet by mouth twice daily. No current facility-administered medications for this visit. Allergies: Prednisone, Zyban [Bupropion], Animal Hair-Dander [Homeopathic Products], Cats, Dogs, Niacin, Pollen, Ciprofloxacin, Grass Pollen, and Trees ROS: General (negative for fatigue, malaise, weight loss/gain) HEENT (negative for headache, earache, recent vision changes, sinus pain, sore throat) Respiratory (no recent shortness of breath, hemoptysis) CV (negative for chest tightness, palpitations) Musculoskeletal (see HPI) Psych (no depression, anxiety) REFERRING PHYSICIAN: Consultation requested by Nusrat Mendez CNP for an opinion regarding right index finger mass. My finalrecommendations will be communicated back to the requesting physician by way of shared Medical record or letter to requesting physician via US mail. Nusrat Mendez [address] [facility] [address] Elvin Diaz MD [address] [facility] [id number] Mark Foster MD documented in this encounterKeenan Private Hospital11-30-2022 Instructions* Patient Instructions* Leila Jordan APRN.FLORENTINO - 07/06/2022 11:[address] Lung Screen Results The CT scan that you will have done will show if you have any nodules (small spots) in your lungs that are suspicious for cancer. Around 90% of the patients who have this scan done are found to have at least one nodule. Most nodules are benign (not cancer) and of no harm to you at all. A specialistwill make a scientific evaluation about whether or not a nodule is worrisome based on its size and shape. The radiologist who will read your scan will put it into one of four categories: LUNG-RADS Category Description Overall Probability of Malignancy Recommended Follow-Up 1 Negative No nodules and definitely benign (non-cancerous nodules) Essentially 0. 1 Year - Follow-up Low dose CT 2 Benign Appearance or Behavior Nodules with a very low likelihood of becoming cancer due to size or lack of growth Less than 1% 1 Year - Follow-up Low dose CT 3 Probably Benign Probably benign finding, short term follow-up recommended 1 to 2% 6 Months - Follow-up Low dose CT 4 Suspicious Findings for which additional diagnostic testing and/or biopsy is recommended Will be calculated based on nodule characteristics. Dependent on what is seen on the exam. At times, we may see something outside of the lungs on the scan that could be a health concern. Below are some of the most common findings: S Clinically Significant or Potentially Clinically Significant Findings (non lung cancer) Referral or additional imaging/labs depending on result. Approximately 10% of people receive this result. Coronary Artery Calcifications (Moderate or Severe) - Referral to cardiology for further work-up and recommendations. Thyroid Nodule - TSH level and Thyroid Ultrasound dependent on size, referral to endocrinology. Adrenal Nodule - Blood work and referral to endocrinology. Others Lung Cancer Screening hotline: [phone] Lung Cancer Screening [phone] Billing Questions: or [email or web address] Lung Cancer Screening Team: Matilda Christopher CNP; Ludin Leo CNP; Clare Blackwell CNP; Klaudia Roldan CNP, Lilibeth Lopez PA-C, Massiel Coffman PA-C, Leila Jordan, [employer] : [phone] documented in this encounterKeenan Private Hospital11-30-2022 History of Present illness Narrative* Leila Jordan APRN.CNP - 07/06/2022 10:49 AM EST Images from the original note were not included. LUNG SCREENING VISIT PRIMARY CARE PHYSICIAN: Elvin Diaz MD PULMONARY PROVIDER: none, has seen someone in remote past Results will be communicated via letter or electronic record if applicable. Visit Delivery: In Person Patient Visit Type: New to Screening Ex-smoker Exam Type: baseline LDCT Number of Pack Years: 76 pyh Number of Years since Quit: <1 year Results will be communicated via letter or electronic record. REQUESTER: The referring provider advised the patient to have screening. HISTORY OF PRESENT ILLNESS: Elsy Dinero is a 52 year old former smoker who presents for lung screening. Her mother and uncle have had lung cancer. She has undergone 3 back surgeries since October. Most recent was 05/2022. She is using a wheeled walker and has a spine stimulator. Respiratory symptoms include: SOB: Yes, some with gabapentin, occurs at rest and with exertion sometimes. Has asthma. Chest tightness: No Coughing: No Hemoptysis: No Wheezing: No Fever/Chills: No Recent Respiratory Infection: No Unintentional weight loss: No Last 6 Encounter Wt Readings: Date: Wt: 07/04/2022 76.2 kg (168 lb) 06/08/2022 73.5 kg (162 lb) 06/02/2022 74.4 kg (164 lb) 05/11/2022 72.6 kg (160 lb) 05/09/2022 72.6 kg (160 lb) 05/09/2022 73.9 kg (163 lb) ECOG PERFORMANCE STATUS: 2- Ambulatory and capable of all selfcare; unable to carry out work activities. Up and about > 50% of waking hrs. Due to recent back surgeries and complications. Uses wheeled walker. Modified Medical Research Dewy Rose Dyspnea Scale (MMRC) I get short of breath when hurrying on level ground or walking up a slight hill 1 Lung Cancer Risk Factors: 1.Tobacco Use: Start Age 13, Quit Age 51 , Average packs per day 2, Pack Years 74. 2. Passive Smoke Exposure: Yes as a child and as an adult. 3. Personal hx of malignancy: No. 4. Significant exposures (1 year or more of exposure): None. 5. Race: White. 6. Education:Post-graduate/professional 7. BMI:There is no height or weight on file to calculate BMI. 8. COPD: Yes 9. Pneumonia in the past 5 years: No 10. Is there a history of lung cancer in a first degree relative? Yes. mother - had lobectomy 11. Is there a history of lung cancer in a non first degree relative? Maternal uncle lung cancer 12. Is there a history of any other cancer in a first degree relative? mom uterine cancer, sister being tested for shook splicer cancer . PAST MEDICAL HISTORY Diagnosis Date Acid reflux Acute gastritis without mention of hemorrhage 09/14/2011 Allergy-induced asthma, mild intermittent, uncomplicated Asthma Chronic midline low back pain without sciatica 05/17/2016 Duodenitis 09/14/2011 Duodenitis without mention of hemorrhage Facet arthropathy, lumbar 05/17/2016 Hemorrhage of gastrointestinal tract, unspecified Hirsutism 09/16/2019 Pure hypercholesterolemia 06/28/2021 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 Spinal stenosis, lumbar region, without neurogenic claudication 03/27/2015 Suicidal ideation 03/03/2022 Tobacco use disorder 04/11/2007 Vascular occlusion 01/07/2022 Intraoperative L common iliac artery occlusion PAST SURGICAL HISTORY Procedure Laterality Date ESOPHAGOGASTRODUODENOSCOPY TRANSORAL DIAGNOSTIC 09/14/2011 EGD ILIAC REVASC ADD-ON Left 01/07/2022 L MCKAYLA endarterectomy LUMBAR SPINE FUSION COMBINED 02/23/2022 L2 to ilium instrumented fusion, L3, 4 and 5 laminectomy, L2-3, 3-4 and L5-S1 transforaminal lumbarinterbody fusion. LUMBAR SPINE FUSION,ANTER APPRCH 01/07/2022 ALIF L4-L5. PAST SURGICAL HISTORY OF 04/29/2012 excision of back lump SIGMOIDOSCOPY FLX DX W/COLLJ SPEC BR/WA IF PFRMD 09/14/2011 Sigmoidoscopy, flexible FAMILY HISTORY Problem Relation Age of Onset GI Mother colon polyps Cancer Mother Lung/Uterine/ cervical Allergies Mother GI Father colon polyps Diabetes Father Coronary Artery Disease Father Stents Heart Father age 85 Dementia Father No Known Problems Sister No Known Problems Sister Diabetes Brother Kidney Disease Brother dialysis Heart Failure Brother Allergies Daughter Heart Daughter PDA closure Allergies Daughter Breast Cancer Maternal Grandmother Allergies Maternal Grandfather Breast Cancer Paternal Grandmother Allergies Paternal Grandmother Diabetes Paternal Grandfather Anesthesia Problems No Family History Anesthesia No Family History polyethylene glycol 3350 (MIRALAX ORAL) Take by mouth. sennosides (SENNACON ORAL) Take by mouth. methocarbamol (ROBAXIN) 750 mg tablet Take 750 mg by mouth three times daily. spironolactone (ALDACTONE) 50 mg tablet Take 1 tablet by mouth twice daily. ProAir RespiClick 90 mcg/actuation breath activated (albuterol sulfate) Inhale 2 Puffs as instructed every 4 hours as needed. diphenhydramine HCl (BENADRYL ALLERGY ORAL) Take by mouth. 2 tablets qhs triamcinolone acetonide (NASACORT AQ NASAL) Use 1 [place] in the nose. qAM as needed docusate sodium (COLACE) 100 mg capsule Take 1 capsule by mouth twice daily. fexofenadine (STANLEY) 180 mg tablet Take 180 mg by mouth once daily. famotidine (PEPCID ORAL) Take 1 tablet by mouth twice daily. gabapentin (NEURONTIN) 300 mg capsule Take 1 capsule by mouth as needed (Take 3 capsules by mouth daily at bedtime AND 2 capsules twice daily with meals.) for up to 30 days. ALLERGIES Allergen Reactions Prednisone Mental Status Change FEELS LIKE I'M GOING NUTS Zyban [Bupropion] Mental Status Change Suicidal thoughts Animal Hair-Dander * Hives Cats Hives Dogs Hives Niacin Rash, Vomiting Pollen Hives Ciprofloxacin Vomiting States can take if she eats with it. Grass Pollen Intolerance Trees Intolerance The medications and allergies were reviewed and reconciled for this patient and deemed current. Health Maintenance Immunization History Administered Date(s) Administered COVID-19 original vaccine, full dose, monovalent (MODERNA) 08/19/2020 09/16/2020 06/19/2021 Influenza Seasonal Inj Age 3+ 07/01/2020 Influenza Seasonal Inj Quad Age 6 Mo-64 Yrs Pres Free 05/17/2022 TD Adult 09/02/2005 Tdap (Age 7+) 01/29/2011 Zoster Recombinant (Shingrix) 09/16/2019 06/23/2021 pneumococcal (PCV20) vaccine, 20 valent (PREVNAR 20) 07/04/2022 Colonoscopy: 08/20/2021 Mammogram: 06/17/2022 DATA REVIEW I have directly visualized the testing documented: Prior Imaging: Last CT Chest - Impression Only No resulted procedures found. Last XR Chest - Impression Only XR CHEST PA/LAT Collected: 06/29/2015 4:30 PM (Final result) Impression: IMPRESSION: No evidence of active disease. Primary Therapist: GRACIE Transcribe Date/Time: Jun 29 2015 6:15P ... Pulmonary Function Testing: No textual results found for the specified procedure(s). PHYSICAL EXAM: BP 118/73 (BP Site: Left Arm, BP Position: Sitting, BP Cuff Size: Regular Adult) Pulse 76 LMP 03/02/2015 SpO2 100% Deferred ASSESSMENT and RECOMMENDATIONS: 1. Screening for lung cancer: Six year risk for lung cancer: 3.0% Source: PrePay.Up My Game I have determined that the patient is eligible for a low dose CT based on age, absence of signs or symptoms of lung cancer, and total pack years: Yes. The patient and I engaged in shared decision making, including the use of one or more decision aids, to include benefits, harms, follow-up diagnostic testing, over-diagnosis, false positive rate, andtotal radiation exposure. The patient understands and feels comfortable with it: Yes. The patient was counseled on the importance of adherence to annual LDCT lung cancer screening, impact of comorbidities and ability or willingness to undergo diagnosis and treatment. The patient understands and feels comfortable with it:Yes. 2. Former tobacco use: Recently quit 10/2021 for surgery. She is using a tracker on her phone. She is not sure that she will remain abstinent. She was encouraged to continue with cessation. She has not used nicotine replacement and is not allowed due to surgery. MDM: I spent a total of 25 minutes on the date of the service which included preparing to see the patient, [id number] patient care, completing clinical documentation, counseling and educating the patient/family/caregiver, ordering medications, tests, or procedures, and care coordination (not separately reported). Leila Jordan APRN.CNP NPI #: [id number] July 06, 2022 10:52 AM Associated attestation - Camille Leo APRN.CNP - 07/06/2022 12:21 PM EST TEACHING PROVIDER (Physician/PA/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) NOTE OF PERSONAL INVOLVEMENT IN CARE: I have personally seen and examined the patient and performed the medical decision-making components. I have reviewed the Leila Jordan 's documentation and verified the findings in the note as written. Any additions or changes are noted in bold/italics. Signature: Camille Leo APRN.CNP Date: 07/06/2022 Time: 12:21 PM documented in this encounterKeenan [facility]11-28-2022 Miscellaneous Notes* Telephone Encounter - Stanley Deluca RN - 07/04/2022 2:09 PM EST Forms printed for review. Awaiting signature from provider. * Telephone Encounter - Delia Montemayor - 07/04/2022 1:26 PM EST [facility] Scanned to patient's chart for provider's signature. documented in this encounterKeenan [facility] Hospital11-28-2022 History of Present illness Narrative* Elvin Diaz MD - 07/04/2022 12:48 PM EST This note was created using Bettyvisionriter. Subjective Elsy Dinero is a 52 year old female. She was dealing with chronic pain, and depressed with lack of progress. She wanted to be off gabapentin and she did not want to be on antidepressants, and she felt the suicidal ideation was not actual but her response was hypothetical. COPD was stable, andshanthony declined referral or evaluation of COPD. She did stop smoking. Review of Systems Constitutional: Negative. Respiratory: Positive for shortness of breath. Cardiovascular: Negative. Musculoskeletal: Positive for arthralgias, back pain and gait problem. Neurological: Positive for numbness. Psychiatric/Behavioral: Positive for dysphoric mood. Negative for self-injury and suicidal ideas. ACTIVE PROBLEM LIST Allergy-Induced Asthma, Mild Intermittent, Uncomplicated Spinal Stenosis, Lumbar Region With Neurogenic Claudication Acid Reflux Hirsutism Pure Hypercholesterolemia Former Smoker Lumbar Stenosis With Neurogenic Claudication S/P Lumbar Spinal Fusion Poor Compliance Orthopedic Aftercare Suicidal Ideation Generalized Weakness History of Dvt (Deep Vein Thrombosis) S/P Hardware Removal Asthma With Chronic Obstructive Pulmonary Disease (Copd) ([facility]) Current Outpatient Medications Medication Sig diphenhydramine HCl (BENADRYL ALLERGY ORAL) Take by mouth. 2 tablets qhs triamcinolone acetonide (NASACORT AQ NASAL) Use 1 [place] in the nose. qAM as needed gabapentin (NEURONTIN) 300 mg capsule Take 1 capsule by mouth as needed (Take 3 capsules by mouth daily at bedtime AND 2 capsules twice daily with meals.) for up to 30 days. spironolactone (ALDACTONE) 50 mg tablet Take 1 tablet by mouth twice daily. docusate sodium (COLACE) 100 mg capsule Take 1 capsule by mouth twice daily. fexofenadine (STANLEY) 180 mg tablet Take 180 mg by mouth once daily. albuterol sulfate (PROAIR RESPICLICK) 90 mcg/actuation aepb Inhale 2 Puffs as instructed every 4 hours as needed. famotidine (PEPCID ORAL) Take 1 tablet by mouth twice daily. No current facility-administered medications for this visit. Objective BP 114/68 (BP Site: Left Arm, BP Position: Sitting, BP Cuff Size: Large Adult) Pulse 80 Temp (!) 35.9 C (96.7 F) (Temporal) Resp 18 Wt 76.2 kg (168 lb) LMP 03/02/2015 BMI 27.12 kg/m Physical Exam Constitutional: General: She is not in acute distress. Appearance: She is not ill-appearing. Cardiovascular: Rate and Rhythm: Normal rate and regular rhythm. Pulmonary: Effort: Pulmonary effort is normal. Breath sounds: Normal breath sounds. Musculoskeletal: Right lower leg: No edema. Left lower leg: No edema. Neurological: General: No focal deficit present. Mental Status: She is alert. Comments: Using rollator. Psychiatric: Mood and Affect: Mood normal. Assessment and Plan 1. Asthma with chronic obstructive pulmonary disease (COPD) ([facility]) - ICD9: 493.20, ICD10: J44.9 (primary diagnosis) Stable. 2. Hirsutism - ICD9: 704.1, ICD10: L68.0 Refilled. - SPIRONOLACTONE 50 MG TABLET 3. Need for vaccination - ICD9: V05.9, ICD10: Z23 - PNEUMOCOCCAL VACCINE (PREVNAR 20) - She will get her Covid booster at her pharmacy. - Tdap was also due. 4. Depression, unspecified depression type - ICD9: 311, ICD10: F32.A She declined CYMBALTA. 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 5. Former smoker - ICD9: V15.82, ICD10: Z87.891 - CONSULT LUNG CANCER SCREENING CLINIC Patient indicated understanding and willingness to follow recommendations. Elvin Diaz MD documented in this encounterKeen[facility]11-16-2022 Miscellaneous Notes* Telephone Encounter - Elsy Hill - 06/22/2022 3:22 PM EST Patient at [phone] is requesting a call back Re: questions about a dental implant she is goingto get on 07/07 and if this is okay follow her last surgery in 05/2022? documented in this encounterKeenan [facility]11-11-2022 History of Present illness Narrative* Kriss Randolph RT(R) - 06/17/2022 11:10 AM EST Radiology Service Progress Note PATIENT NAME: Elsy Dinero DATE OF SERVICE: June 17, 2022 TIME: 11:00 AM PATIENT IDENTITY VERIFICATION COMPLETED USING TWO (2) IDENTIFIERS: Name and Date of confirmedby patient verbally. FALL SCREENING: Has the patient had 2 falls in the last year or 1 fall with injury or currently using an Ambulatory Assistive Device (Walker, Cane, Wheelchair, Crutches, etc.)? No PATIENT GENDER DATA: Female. status: : No status: NO. PATIENT RELEVANT IMPLANT DATA REVIEWED: Not Applicable RADIOLOGY DEPARTMENT: Mammography PERIPHERAL IV DATA: Not applicable SIGNED BY: RT Tim(Ad) June 17, 2022 11:00 AM documented in this encounterKeenan [facility] Hospital11-10-2022 History of Present illness Narrative* Leobardo Bundy - 06/16/2022 3:31 PM EST Images from the original note were not included. FOLLOW UP PODIATRIC OFFICE VISIT Chief Complaint: This 52 year old who presents for follow up:left great toe pain Patient presents to clinic for evaluation of left great toe She complains of pain primarily to the left hallux ipj. She states she has pain whenever she is ambulatory. She is trying to increase her exercise following back surgery but is having a difficult time walking because of the pain She feels she has a bone spur that she would like to discuss surgical options. PAIN EVALUATION 06/16/2022 [id number] Pain Level: -- patient unable to rate on a 1-10 scale Pain Location: Toe Description: Aching Duration Amount of Time: -- several months Duration Units: Months Frequency: Intermittent Intervention/Comfort measure: Reposition;Relaxation Hemoglobin A1C Date Value Ref Range Status 04/21/2015 5.4 4.0 - 6.0 % Final Comment: [place] [employer] guidelines indicate that patients with HgbA1c in the range 5.7-6.4% are at increased risk for development of diabetes, and intervention by lifestyle modification may be beneficial. HgbA1c greater or equal to 6.5% is considered diagnostic of diabetes. 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 2 tablets qhs triamcinolone acetonide (NASACORT AQ NASAL) Use 1 [place] in the nose. qAM as needed spironolactone (ALDACTONE) 50 mg tablet Take 1 tablet by mouth twice daily. docusate sodium (COLACE) 100 mg capsule Take 1 capsule by mouth twice daily. fexofenadine (STANLEY) 180 mg tablet Take 180 mg by mouth once daily. albuterol sulfate (PROAIR RESPICLICK) 90 mcg/actuation aepb Inhale 2 Puffs as instructed every 4 hours as needed. famotidine (PEPCID ORAL) Take 1 tablet by mouth twice daily. gabapentin (NEURONTIN) 300 mg capsule Take 1 capsule by mouth as needed (Take 3 capsules by mouth daily at bedtime AND 2 capsules twice daily with meals.) for up to 30 days. No current facility-administered medications for this visit. ALLERGIES Allergen Reactions Prednisone Mental Status Change FEELS LIKE I'M GOING NUTS Zyban [Bupropion] Mental Status Change Suicidal thoughts Animal Hair-Dander * Hives Cats Hives Dogs Hives Niacin Rash, Vomiting Pollen Hives Ciprofloxacin Vomiting States can take if she eats with it. Grass Pollen Intolerance Trees Intolerance PAST SURGICAL HISTORY Procedure Laterality Date ESOPHAGOGASTRODUODENOSCOPY TRANSORAL DIAGNOSTIC 09/14/2011 EGD ILIAC REVASC ADD-ON Left 01/07/2022 L MCKAYLA endarterectomy LUMBAR SPINE FUSION COMBINED 02/23/2022 L2 to ilium instrumented fusion, L3, 4 and 5 laminectomy, L2-3, 3-4 and L5-S1 transforaminal lumbarinterbody fusion. LUMBAR SPINE FUSION,ANTER APPRCH 01/07/2022 ALIF L4-L5. PAST SURGICAL HISTORY OF 04/29/2012 excision of back lump SIGMOIDOSCOPY FLX DX W/COLLJ SPEC BR/WA IF PFRMD 09/14/2011 Sigmoidoscopy, flexible Physical Exam: OBJECTIVE: Constitutional: Pt is a well developed 52 year old female who is alert, oriented, cooperative and in no apparent distress. Eyes: Following during examination. No redness or drainage. Respiratory: RR normal and nonlabored. Even breathing. No evidence of distress. Psychology: Patient is engaged during conversation. Normal affect and mood. Does not appear depressed or anxious. NVSI unchanged from previous visit. Non-Invasive Vascular Laboratory Count Includes [facility] Lower Extremity Arterial Physiology Study Bilateral/Complete Date of service/time: 02/09/2022 8:07:53 AM Name: MS. ELSY DINERO Date of : 1970 Age: 51 years Gender: F Clinical Indication 01/07/2022 left common iliac artery endarterectomy and thrombectomy. TECHNIQUE -------- An arterial physiological examination was performed, including measurement of blood pressures using continuous wave Doppler and recording of plethysmographic with or without Doppler waveforms at the below-mentioned limb segments. FINDINGS -------- RIGHT SIDE AT REST Right Doppler Waveforms Dorsalis pedis: Biphasic. Post tibial: Biphasic. Right Pressures Brachial: 115 mmHg Ankle dorsalis pedis: 123 mmHg CRYSTAL: 1.07 Ankle posterior tibial: 132 mmHg CRYSTAL: 1.15 Right PVR Waveforms Ankle: Normal. LEFT SIDE AT REST Left Doppler Waveforms Dorsalis pedis: Monophasic. Post tibial: Monophasic. Left Pressures Brachial: 107 mmHg Ankle dorsalis pedis: 82 mmHg CRYSTAL: 0.71 Ankle posterior tibial: 94 mmHg CRYSTAL: 0.82 Left PVR Waveforms Ankle: Normal. IMPRESSION RIGHT SIDE Resting right ankle brachial index: 1.15 Normal ankle brachial index at rest in the right leg. Right ankle: Normal at rest. LEFT SIDE Resting left ankle brachial index: 0.82 Abnormal ankle brachial index at rest diagnostic of peripheral artery disease. Left ankle: Mild disease at rest. Technologist: Eulalia Ortiz RVT, RDMS Ordering physician: DREW HOBSON Interpreting physician: Tamir Davenport MD Dermatological: Nails 1-5 b/l are normal. Webspaces clean and dry 1-4 b/l. Skin appears well hydrated and supple. good color, texture, turgor. No open lesions present. No callosities present. Musculoskeletal/Orthopaedic: Patient has pain to palpation of left hallux ipj Swelling is present to left hallux ipj Rom of left hallux ipj is severe decreased with pain. ASSESSMENT: (M19.079) Arthritis of big toe (primary encounter diagnosis) (I73.9) PAD (peripheral artery disease) (HCC) PLAN: Discussed pain in left hallux ipj She has what appears to be arthritis of ipj both clinically and radiographically. The current xraysare from 2019. I am going to repeat xrays today to evaluate for any progression of arthritis of ipj. Discussed possible surgical options not limited to removal of bony fragment vs ipj fusion. I reviewed past pvr . She does have pad in left foot so any surgical intervention wouild need to be cleared by vascular surgery. Will repeat xrays Will call with results. Leobardo Bundy DPM * Prema Rosado RN - 06/16/2022 2:58 PM EST AMB ROOMING INTAKE FLOWSHEET DATA Pain Pain Level: (patient unable to rate on a 1-10 scale) Pain Location: Toe Description: Aching Duration Amount of Time: (several months) Duration Units: Months Frequency: Intermittent Intervention/Comfort measure: Reposition, Relaxation Patient presents with: Left Great Toe - Established Patient, Pain documented in this encounterKeenan [facility]11-02-2022 History of Present illness Narrative* Nusrat Older, 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 - 06/08/2022 5:13 PM EDT Images from the original note were not included. CC: Patient presents with: growth on finger HPI Elsy Dinero is a 52 year old female who presents today for above. She noticed a growth on her right index finger at first joint about 4 months ago. She has attemptedmultiple times to poke it with a needle to see if anything comes out but nothing has. Has also tried compound W but only experienced some burning around the growth. Growth is painful and tender to touch. Has limited her ROM in that index finger with flexion because of pain. Denies any other growths, rashes, or lesions. 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 LUMBAR SPINE FUSION,ANTER APPRCH 01/07/2022 ALIF L4-L5. PAST SURGICAL HISTORY OF 04/29/2012 excision of back lump SIGMOIDOSCOPY FLX DX W/COLLJ SPEC BR/WA IF PFRMD 09/14/2011 Sigmoidoscopy, flexible ALLERGIES Prednisone, Zyban [Bupropion], Animal Hair-Dander [Homeopathic Products], Cats, Dogs, Niacin, Pollen, Ciprofloxacin, Grass Pollen, and Trees MEDICATIONS diphenhydramine HCl (BENADRYL ALLERGY ORAL) Take by mouth. 2 tablets qhs triamcinolone acetonide (NASACORT AQ NASAL) Use 1 [place] in the nose. qAM as needed methocarbamol (ROBAXIN) 750 mg tablet Take 1 tablet by mouth three times daily. gabapentin (NEURONTIN) 300 mg capsule Take 1 capsule by mouth as needed (Take 3 capsules by mouth daily at bedtime AND 2 capsules twice daily with meals.) for up to 30 days. spironolactone (ALDACTONE) 50 mg tablet Take 1 tablet by mouth twice daily. docusate sodium (COLACE) 100 mg capsule Take 1 capsule by mouth twice daily. fexofenadine (STANLEY) 180 mg tablet Take 180 mg by mouth once daily. albuterol sulfate (PROAIR RESPICLICK) 90 mcg/actuation aepb Inhale 2 Puffs as instructed every 4 hours as needed. famotidine (PEPCID ORAL) Take 1 tablet by mouth twice daily. FAMILY HISTORY Problem Relation Age of Onset GI Mother colon polyps Cancer Mother Lung/Uterine/ cervical Allergies Mother GI Father colon polyps Diabetes Father Coronary Artery Disease Father Stents Heart Father age 85 Dementia Father No Known Problems Sister No Known Problems Sister Diabetes Brother Kidney Disease Brother dialysis Heart Failure Brother Allergies Daughter Heart Daughter PDA closure Allergies Daughter Breast Cancer Maternal Grandmother Allergies Maternal Grandfather Breast Cancer Paternal Grandmother Allergies Paternal Grandmother Diabetes Paternal Grandfather Anesthesia Problems No Family History Anesthesia No Family History Social History Tobacco Use Smoking status: Former Packs/day: 1.00 Years: 40.00 Pack years: 40.00 Types: Cigarettes Quit date: 10/23/2021 Years since quittin.6 Smokeless tobacco: Never Tobacco comments: started age 13. Vaping Use Vaping Use: Never used Substance Use Topics Alcohol use: Not Currently Drug use: Not Currently Comment: experimented in 20s PHYSICAL EXAM BP 118/68 Pulse 68 Resp 16 Wt 73.5 kg (162 lb) LMP 03/02/2015 BMI 26.15 kg/m General Appearance: well appearing, in no acute distress, alert Lungs: Lungs clear to auscultation. No wheezing, rhonchi, rales. Heart: RRR without murmur, gallop, or rubs. No ectopy ASSESSMENT/PLAN: 1. Ganglion cyst of finger - ICD9: 727.43, ICD10: M67.449 Appearance consistent with ganglion cyst. Recommend continued monitoring however patient is adamantshe wants this removed. - CONSULT TO ORTHOPAEDICS Prescription instructions reviewed with patient as applicable. Potential red flag symptoms discussed with the patient. Reviewed appropriate action plan to take if red flag symptoms occur. Patient agreeable to treatment plan. documented in this encounterKeenan [facility]10-27-[facility]22 History of Present illness Narrative* Caroline Natanael - 06/02/2022 11:30 AM EDT SPINE SURGERY FOLLOW UP SERVICE DATE: 06/02/2022 SURGERY DATE: 02/23/2022 Elsy Dinero is a 52 year old female who presents 3 months s/p L2 to ilium instrumented fusion, L3, 4 and 5 laminectomy, L2-3, 3-4 and L5-S1 transforaminal lumbar interbody fusion. She is also 2weeks s/p Removal of bilateral iliac screws. Today, the patient reports she still has low back pain. She states she has been doing physical therapy and she believes it is helpful. She states she is not walking as much as she used too, she believes it is because of the cold weather. She adds that she is experiencing drop foot. She states she is interested in trying aquatic therapy. Her regnia were removed today. PAIN EVALUATION 06/02/2022 1140 Pain Level: 9 Description: Pressure;Tingling;Aching;Pulsating;Pressure Ulcer/Injury;Burning;Sharp;Sore;Stiffness;N umbness;Throbbing;Incision;Stabbing/Not Incision;Stabbing;Cramping Duration Units: Unknown Frequency: Continuous Intervention/Comfort measure: Medication Comments: lower back pain ANTIPLATELET OR ANTICOAGULATION STATUS: No Patient Entered Questionnaires Spine Questions 04/27/2021 06/10/2021 12/20/2021 Pain Location: Lower back Lower back Lower back Pain Duration: More than 5 years - - Symptoms from neck/cervical spine: No No No Employment Status: - - Working now Involved in law suit/legal claim: - - No Spine Red Flags 04/27/2021 Any type of cancer: No Unexplained fever: No Bowel or bladder disfunction: Yes Unintentional weight loss: No Osteoporosis: No PROMIS Score Percentiles Physical Health 04/27/2021 06/10/2021 12/20/2021 Physical Function Percentile 3 2 2 Sleep Percentile 4 4 21* Fatigue Percentile 14 1 4 Pain Interference Percentile 1 1 4 PROMIS SOCIAL ROLE SCORE 04/27/2021 06/10/2021 12/20/2021 Social Role Satisfaction Percentile 10 8 18* PROMIS Global Health Scale 05/17/2016 04/27/2021 12/20/2021 Physical Health Percentile 7 4 2 Mental Health Percentile 26* 43 13 Percentiles provide an indication of how the patient's score ranks in relation to the general population. Higher percentile rankings indicate better function/quality of life. 50th percentile is the average of the general population and indicates half of respondents had a worse score. Depression Screening: PHQ-9 04/27/2021 06/10/2021 12/20/2021 Score 9 10 10 PHQ-9 Self-harm Question 04/27/2021 06/10/2021 12/20/2021 Thoughts that you would be better off , or of hurting yourself in some way 0 0 0 PHQ-9 Self-Harm (Item 9) response options: 0 Not at all 1 Several days 2 More than half the days 3 Nearly every day PHQ-9 Levels: 0-4 No to mild depression 5-9 Mild depression 10-14 Moderate depression 15-19 Moderately severe depression 20-27 Severe depression PHYSICAL EXAM: BP 119/78 (BP Site: Left Arm, BP Position: Sitting, BP Cuff Size: Regular Adult) Pulse 82 Ht 167.6 cm (5' 6) Wt 74.4 kg (164 lb) LMP 03/02/2015 SpO2 100% BMI 26.47 kg/m GENERAL APPEARANCE: Well nourished, well developed, and no apparent distress. NEURO PSYCH: Patient oriented to person, place, and time. Mood pleasant. Benign affect. MUSCULOSKELETAL VISUAL INSPECTION: incision healthy CERVICAL: WNL THORACIC: WNL LUMBAR: WNL MOTOR: 5/5 in all muscle groups. SENSORY: Normal sensory exam GAIT: Normal. REFLEXES: +2 to bilateral U/L extremities. STRAIGHT LEG TEST: Normal Good sagittal balance. NEURO TESTS: None DATA REVIEW No additional images reviewed today ASSESSMENT/PLAN She is 3 months s/p L2 to ilium instrumented fusion, L3, 4 and 5 laminectomy, L2-3, 3-4 and L5-S1 transforaminal lumbar interbody fusion. She is also 2 weeks s/p Removal of bilateral iliac screws. [place] were removed today. Elsy Dinero will continue with medical management of his/her condition. No Orders Entered Today Follow up: Three months I spent a total of 15 minutes on the date of the service which included preparing to see the patient, [id number] patient care, completing clinical documentation, obtaining and/or reviewing separately obtained history, performing a medically appropriate examination, and counseling and educating the patient/family/caregiver. Scribe Attestation: By signing my name below, I, Caroline Santoyo, attest that this documentation has been prepared under the direction and in the presence of Dr. Ambrose Birch.Electronically Signed: Ana Maria Kimball. June 02, 2022 8:38 AM Provider Attestation:I, Dr. Ambrose Birch, personally performed the services described in this documentation. All medical record entries made by the scribe were at my direction and in my presence. I have reviewed the chart and discharge instructions (if applicable) and agree that the record reflects my personal performance and is accurate and complete. Electronically Signed: Dr. Ambrose Birch. June 02, 2022 8:38 AM SIGNATURE: Ambrose Birch MD PATIENT NAME: Elsy Dinero DATE: June 02, 2022 TIME: 8:38 AM PAGER: [facility] History of Present illness Narrative* Drew Hobson MD - 05/30/2022 4:21 PM EDT TELEPHONE VISIT (audio only) PROGRESS NOTE This is a telephone encounter initiated for an established patient. The patient, parent or guardianis not originating from a related Evaluation & Management service provided within the previous 7 days nor leading to an Evaluation & Management service or procedure within the next 24 hours or soonest available appointment. Elsy Dinero has consented to this telephone encounter. Persons Present: patient Chief Complaint/Reason: pelvic pain HPI: following her surgery in 05/2022 pelvic pain is improved overall. She has no complains of the left leg. Data Reviewed: Most recent labs and imaging results. Assessment: S/p ALIF and Right iliac artery endarterectomy. Plan: She is continuing to avoid tobacco. Will follow up in 6 months with aorta duplex and PVR Total Time Spent: 11-20 minutes Fer Hobson MD documented in this [facility]22 Miscellaneous Notes* Telephone Encounter - Stanley Deluca RN - 05/23/2022 9:42 AM EDT Call placed to patient. Pt states she received analgesic prescription over the weekend and is feeling better. States she feels stiff. 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 TRANSITION CARE MANAGEMENT (TCM) FOLLOW-UP NOTE Provider Action/FYI Message received from PA Pt given message from PA below Patient states that she onlyhas 24 pills left so will not carrying her through until Monday -pleaseforward new script with new sig to pharmacy TY JEREMIAH Dos Santos RN 42 minutes ago (11:59 AM) ND She can increase to two tablets every six hours in the short term until her pain improves over the next week or two. Would continue other prescriptions as ordered. 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 Also taking robaxin , and gabapentin as scritped and pain only reducing to 10 Was on 2 oxycodone IR in patient every 6 - advised to call Neuro surgery d/t pain uncontrolled Pt states that they don't respond - reinforced to call and report SX Routed to Dr Birch as well Denies fever or chills Denies N/V , abd pain or cramping No neuro sx distally Fluids hydrating well 60-64 oz Not taking much solids in d/t no BM reviewed No BM since home , passing gas Las BM prior to surgery Stapes in place denies - Swelling bruising, redness , drainage Denies any resp sx or aggravation of her COPD/Asthma F/U APPTS F/U PCP 05/26/22 [facility] 05/30/22 Neuro surgery 06/02/22 [facility] summa [phone] No further TCM F/U warranted at this time, Pt has F/U plan and good understanding of plan of care, AVS and above instructions . Aware of and verbalized understanding of sx to call offices of providers vs seeking immediate medical attention Transitions of Care Critical Issues: Dr Birch office to schedule you a follow up appointment for 2 weeks SUMMARY: Pt discharged from [facility] on 10/13/22. Admitted for: Elective Surgery Removal of bilateral iliac screws ACTIVE PROBLEM LIST Allergy-Induced Asthma, Mild Intermittent, Uncomplicated Spinal Stenosis, Lumbar Region With Neurogenic Claudication Acid Reflux Hirsutism Pure Hypercholesterolemia Former Smoker Lumbar Stenosis With Neurogenic Claudication Acute Postoperative Pain S/P Lumbar Spinal Fusion Poor Compliance Orthopedic Aftercare Suicidal Ideation Generalized Weakness History of Dvt (Deep Vein Thrombosis) S/P Hardware Removal Asthma With Copd With Exacerbation Hospital course taken from D/C summary and AVS Past medical history significant for GERD, recovering alcoholic, gastritis, L4/5 ALIF (01/07/2022), left iliac endarterectomy (01/07/2022), L2/3, L3/4, and L5/S1 TLIF (02/23/2022), and lumbar radiculopathy who presented for elective removal of bilateral iliac screws performed on 05/17/[address] Birch. The patient's post operative pain was well controlled on discharge. The patient's preoperative symp toms of lower back pain and right leg pain with associated weakness/tingling are improved. She tolerated a diet, voided independently, ambulated in the hallway without difficulty, and passing flatus with no BM. Recommended OTC colace and miralax if needed for bowel management. No intraoperative drains placed. Lower back surgical site dressing is CDI. Evaluated by PT/OT and recommended no home needs. The patient was discharged to home in stable condition. Dr Birch office to schedule a follow up appointment in 2 weeks and contact the patient. Contact made with patient: Yes Hi my name is Christy Garcia RN, BSN and I am calling [facility] on behalf of your PCP, Elvin Diaz MD I understand you were recently in the hospital so I am calling to check in with you to ensure you are feeling well now that you're home. May I ask you a few questions related to your hospital stay and well-being? Yes Contact with patient post discharge, spoke to patient. Patient identified by name and . Do you feel your health is BETTER, WORSE, or the SAME since leaving the hospital? Same ACTION TAKEN: Patient indicated symptoms are better or same, no action required. Continue outreach. MEDICATIONS: Many patients have questions or concerns about their medications once they are home. Do you have any questions about taking your medications or which medication you should be on? Yes questioning why pain bed cut in 1/2 at discharge pain 8-9/10 will current pain regimen. See FYI box Do you need any medication refills at this time, including any of the medications you might take only when needed? No ACTION TAKEN: No action required For RNs or Pharmacy completing outreach ONLY, was a medication review completed? Yes, stopped, New and changed medications - patient to check his med bottles dose and freq to Discharge summary and ifany discrepancy will notify PCP office to update SOCIAL: We would like to make sure you have what you need so that your basics needs are met - including your personal safety, food, housing and medications. Would you like to speak with a social work steam tunnel feeder to help give you support for any of these needs? No It can be normal to feel anxious or down during a time like this. Would you like to talk to a mental health professional about how you have been feeling? No ACTION TAKEN: No action taken DISCHARGE INTRUCTIONS: Your discharge instructions / After Visit Summary (AVS) are important in guiding you through the recovery process. Do you have any questions related to your discharge instructions? No Do you have all the necessary equipment and supplies at home? Yes ACTION TAKEN: No action required I would like to help you schedule a hospital follow-up virtual or telephone visit with your PCP. This is a great way for you to connect with your provider to ensure you have safely transitioned home.If you are agreeable, I will send your request to a central scheduler who will contact and assist you with that appointment. This will give you an opportunity to ask any questions or address any concerns youmay have with your PCP. Inform the patient that if they have any questions or concerns prior to that appointment, to call their PCP's office right away. ACTION TAKEN: No action required, patient already has an appointment scheduled. Your doctor would like us to remind you of the recommendations regarding the coronavirus (Covid19) outbreak: Avoid public places as much as possible. Avoid close contact (within 6 feet) with others you don t live with, especially if they are sick. Stay home if you are sick. Wash your hands regularly for at least 20 seconds with soap and water. Wear a cloth mask in public places to help reduce community spread. Do not go to your Doctor s office unless instructed to do so. For any non- emergency symptoms, call your Doctor s office to get instructions on how to manage (we might recommend a telephone or virtualvisit). For emergency symptoms, proceed to Emergency Department as usual but inform them of cough and fever symptoms KEVEN if present (or call on the way if possible). Christy Garcia RN, BSN May 20, 2022 10:17 AM 7.30 minutes spent, Assessment, Education and Questions documented in this encounterKe[facility]10-14-2022 Miscellaneous Notes* Telephone Encounter - Alexandra Redmond - 05/20/2022 1:41 PM EDT Patient calling she just got discharge from the hospital a couple days ago and is still in pain.She states that she was taking 10 mg oxycodone every 3 hrs and when she was discharged they loweredher to 5 mg every 6 hrs. She would like for it to move up to 10 mg every 6 hrs first and work her way down. She states that its hard for her living in a 2 story house. Please advice. documented in this encounterKe[facility]10-[facility]22 History of Past illness Narrative* Problem Noted Date Diagnosed Date Resolved Date S/P hardware removal 05/17/2022 024 Generalized weakness 03/05/2022 024 Orthopedic aftercare 03/03/2022 024 Suicidal ideation 03/03/2022 07/04/2022 Poor compliance 02/28/2022 08/25/2023 Hypomagnesemia 02/24/2022 03/01/2022 Last Assessment & Plan: Assessment: Hypomagnesemia Plan:Electrolyte replacement prn to keep Mg>2 Acute postoperative pain 02/23/2022 Last Assessment & Plan: Assessment: Acute post-operative pain, ? Post surgical radiculopathy : Surgical team aware. 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 Pt has an appt 02/14/2022 with vascular for pre-op clearance/follow up. Post-operative state 01/07/2022 022 Last Assessment & Plan: Assessment: s/p TILF Decompression Laminectomy PLAN: - DVT prophylaxis per Surgery - IS Q1hr - OOB ambulate when able Former smoker 12/13/2021 08/25/2023 Last Assessment & Plan: Assessment: cessation 10/2021 per patient. Elevated dehydroepiandrosterone (DHEA) level 0 03/01/2022 Facet arthropathy, lumbar 05/17/2016 Chronic midline low back zully n without sciatica 05/17/2016 03/01/2022 Low back pain 09/14/2015 05/17/2016 Chronic pain 09/14/2015 05/17/2016 Neurodermatitis 04/22/2013 06/23/2021 Eczematous dermatitis 04/22/20132020 Pyoderma, unspecified 04/22/20132019 Impetigo 04/22/2013 09/16/2019 Pruritus 04/22/2013 09/16/2019 Excoriation 04/22/2013 09/16/2019 Prurigo papule 04/22/2013 03/01/2022 Lichenification and lichen simplex chronicus 3 06/23/2021 Xerosis cutis 04/22/2013 09/16/2019 Duodenitis 09/14/2011 06/23/2021 Acute gastritis without mention of hemorrhage 09/14/19 12 06/23/2021 Cough 05/30/2006 09/16/2019 Other acne 04/08/2005 09/16/2019 Other specified endocrine disorders 04/08/2005 09/16/2019 Allergy-induced asthma, mild intermittent, uncomplicated 08/25/2023 Last Assessment & Plan: Assessment: well controlled with albuterol inh. documented as of this encounter (statuses as of 08/27/2023) [facility] of Past illness Narrative* Problem Noted Date Diagnosed Date Resolved Date S/P hardware removal 05/17/2022 024 Generalized weakness 03/05/2022 024 Orthopedic aftercare 03/03/2022 024 Suicidal ideation 03/03/2022 07/04/2022 Poor compliance 02/28/2022 08/25/2023 Hypomagnesemia 02/24/2022 03/01/2022 Last Assessment & Plan: Assessment: Hypomagnesemia Plan:Electrolyte replacement prn to keep Mg>2 Acute postoperative pain 02/23/2022 Last Assessment & Plan: Assessment: Acute post-operative pain, ? Post surgical radiculopathy : Surgical team aware. 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 Pt has an appt 02/14/2022 with vascular for pre-op clearance/follow up. Post-operative state 01/07/2022 022 Last Assessment & Plan: Assessment: s/p TILF Decompression Laminectomy PLAN: - DVT prophylaxis per Surgery - IS Q1hr - OOB ambulate when able Former smoker 12/13/2021 08/25/2023 Last Assessment & Plan: Assessment: cessation 10/2021 per patient. Elevated dehydroepiandrosterone (DHEA) level 0 03/01/2022 Facet arthropathy, lumbar 05/17/2016 Chronic midline low back zully n without sciatica 05/17/2016 03/01/2022 Low back pain 09/14/2015 05/17/2016 Chronic pain 09/14/2015 05/17/2016 Neurodermatitis 04/22/2013 06/23/2021 Eczematous dermatitis 04/22/20132020 Pyoderma, unspecified 04/22/20132019 Impetigo 04/22/2013 09/16/2019 Pruritus 04/22/2013 09/16/2019 Excoriation 04/22/2013 09/16/2019 Prurigo papule 04/22/2013 03/01/2022 Lichenification and lichen simplex chronicus 3 06/23/2021 Xerosis cutis 04/22/2013 09/16/2019 Duodenitis 09/14/2011 06/23/2021 Acute gastritis without mention of hemorrhage 09/14/19 12 06/23/2021 Cough 05/30/2006 09/16/2019 Other acne 04/08/2005 09/16/2019 Other specified endocrine disorders 04/08/2005 09/16/2019 Allergy-induced asthma, mild intermittent, uncomplicated 08/25/2023 Last Assessment & Plan: Assessment: well controlled with albuterol inh. documented as of this encounter (statuses as of 09/13/2023) [facility] of Past illness Narrative* Problem Noted Date Diagnosed Date Resolved Date S/P hardware removal 05/17/2022 024 Generalized weakness 03/05/2022 024 Orthopedic aftercare 03/03/2022 024 Suicidal ideation 03/03/2022 07/04/2022 Poor compliance 02/28/2022 08/25/2023 Hypomagnesemia 02/24/2022 03/01/2022 Last Assessment & Plan: Assessment: Hypomagnesemia Plan:Electrolyte replacement prn to keep Mg>2 Acute postoperative pain 02/23/2022 Last Assessment & Plan: Assessment: Acute post-operative pain, ? Post surgical radiculopathy : Surgical team aware. 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 Pt has an appt 02/14/2022 with vascular for pre-op clearance/follow up. Post-operative state 01/07/2022 022 Last Assessment & Plan: Assessment: s/p TILF Decompression Laminectomy PLAN: - DVT prophylaxis per Surgery - IS Q1hr - OOB ambulate when able Former smoker 12/13/2021 08/25/2023 Last Assessment & Plan: Assessment: cessation 10/2021 per patient. Elevated dehydroepiandrosterone (DHEA) level 0 03/01/2022 Facet arthropathy, lumbar 05/17/2016 Chronic midline low back zully n without sciatica 05/17/2016 03/01/2022 Low back pain 09/14/2015 05/17/2016 Chronic pain 09/14/2015 05/17/2016 Neurodermatitis 04/22/2013 06/23/2021 Eczematous dermatitis 04/22/20132020 Pyoderma, unspecified 04/22/20132019 Impetigo 04/22/2013 09/16/2019 Pruritus 04/22/2013 09/16/2019 Excoriation 04/22/2013 09/16/2019 Prurigo papule 04/22/2013 03/01/2022 Lichenification and lichen simplex chronicus 3 06/23/2021 Xerosis cutis 04/22/2013 09/16/2019 Duodenitis 09/14/2011 06/23/2021 Acute gastritis without mention of hemorrhage 09/14/19 12 06/23/2021 Cough 05/30/2006 09/16/2019 Other acne 04/08/2005 09/16/2019 Other specified endocrine disorders 04/08/2005 09/16/2019 Allergy-induced asthma, mild intermittent, uncomplicated 08/25/2023 Last Assessment & Plan: Assessment: well controlled with albuterol inh. documented as of this encounter (statuses as of 09/14/2023) [facility] of Past illness Narrative* Problem Noted Date Diagnosed Date Resolved Date S/P hardware removal 05/17/2022 024 Generalized weakness 03/05/2022 024 Orthopedic aftercare 03/03/2022 024 Suicidal ideation 03/03/2022 07/04/2022 Poor compliance 02/28/2022 08/25/2023 Hypomagnesemia 02/24/2022 03/01/2022 Last Assessment & Plan: Assessment: Hypomagnesemia Plan:Electrolyte replacement prn to keep Mg>2 Acute postoperative pain 02/23/2022 Last Assessment & Plan: Assessment: Acute post-operative pain, ? Post surgical radiculopathy : Surgical team aware. 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 Pt has an appt 02/14/2022 with vascular for pre-op clearance/follow up. Post-operative state 01/07/2022 022 Last Assessment & Plan: Assessment: s/p TILF Decompression Laminectomy PLAN: - DVT prophylaxis per Surgery - IS Q1hr - OOB ambulate when able Former smoker 12/13/2021 08/25/2023 Last Assessment & Plan: Assessment: cessation 10/2021 per patient. Elevated dehydroepiandrosterone (DHEA) level 0 03/01/2022 Facet arthropathy, lumbar 05/17/2016 07 / Chronic midline low back zully n without sciatica 05/17/2016 03/01/2022 Low back pain 09/14/2015 05/17/2016 Chronic pain 09/14/2015 05/17/2016 Neurodermatitis 04/22/2013 06/23/2021 Eczematous dermatitis 04/22/20132020 Pyoderma, unspecified 04/22/20132019 Impetigo 04/22/2013 09/16/2019 Pruritus 04/22/2013 09/16/2019 Excoriation 04/22/2013 09/16/2019 Prurigo papule 04/22/2013 03/01/2022 Lichenification and lichen simplex chronicus 3 06/23/2021 Xerosis cutis 04/22/2013 09/16/2019 Duodenitis 09/14/2011 06/23/2021 Acute gastritis without mention of hemorrhage 09/14/19 12 06/23/2021 Cough 05/30/2006 09/16/2019 Other acne 04/08/2005 09/16/2019 Other specified endocrine disorders 04/08/2005 09/16/2019 Allergy-induced asthma, mild intermittent, uncomplicated 08/25/2023 Last Assessment & Plan: Assessment: well controlled with albuterol inh. documented as of this encounter (statuses as of 09/19/2023) [facility] Narrative* Problem Noted Date Diagnosed Date Resolved Date S/P hardware removal 05/17/2022 024 Generalized weakness 03/05/2022 024 Orthopedic aftercare 03/03/2022 024 Suicidal ideation 03/03/2022 07/04/2022 Poor compliance 02/28/2022 08/25/2023 Hypomagnesemia 02/24/2022 03/01/2022 Last Assessment & Plan: Assessment: Hypomagnesemia Plan:Electrolyte replacement prn to keep Mg>2 Acute postoperative pain 02/23/2022 Last Assessment & Plan: Assessment: Acute post-operative pain, ? Post surgical radiculopathy : Surgical team aware. 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 Pt has an appt 02/14/2022 with vascular for pre-op clearance/follow up. Post-operative state 01/07/2022 022 Last Assessment & Plan: Assessment: s/p TILF Decompression Laminectomy PLAN: - DVT prophylaxis per Surgery - IS Q1hr - OOB ambulate when able Former smoker 12/13/2021 08/25/2023 Last Assessment & Plan: Assessment: cessation 10/2021 per patient. Elevated dehydroepiandrosterone (DHEA) level 0 03/01/2022 Facet arthropathy, lumbar 05/17/2016 Chronic midline low back zully n without sciatica 05/17/2016 03/01/2022 Low back pain 09/14/2015 05/17/2016 Chronic pain 09/14/2015 05/17/2016 Neurodermatitis 04/22/2013 06/23/2021 Eczematous dermatitis 04/22/20132020 Pyoderma, unspecified 04/22/20132019 Impetigo 04/22/2013 09/16/2019 Pruritus 04/22/2013 09/16/2019 Excoriation 04/22/2013 09/16/2019 Prurigo papule 04/22/2013 03/01/2022 Lichenification and lichen simplex chronicus 3 06/23/2021 Xerosis cutis 04/22/2013 09/16/2019 Duodenitis 09/14/2011 06/23/2021 Acute gastritis without mention of hemorrhage 09/14/19 12 06/23/2021 Cough 05/30/2006 09/16/2019 Other acne 04/08/2005 09/16/2019 Other specified endocrine disorders 04/08/2005 09/16/2019 Allergy-induced asthma, mild intermittent, uncomplicated 08/25/2023 Last Assessment & Plan: Assessment: well controlled with albuterol inh. documented as of this encounter (statuses as of 09/25/2023) [facility] Narrative* Problem Noted Date Diagnosed Date Resolved Date S/P hardware removal 05/17/2022 024 Generalized weakness 03/05/2022 024 Orthopedic aftercare 03/03/2022 024 Suicidal ideation 03/03/2022 07/04/2022 Poor compliance 02/28/2022 08/25/2023 Hypomagnesemia 02/24/2022 03/01/2022 Last Assessment & Plan: Assessment: Hypomagnesemia Plan:Electrolyte replacement prn to keep Mg>2 Acute postoperative pain 02/23/2022 Last Assessment & Plan: Assessment: Acute post-operative pain, ? Post surgical radiculopathy : Surgical team aware. 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 Pt has an appt 02/14/2022 with vascular for pre-op clearance/follow up. Post-operative state 01/07/2022 022 Last Assessment & Plan: Assessment: s/p TILF Decompression Laminectomy PLAN: - DVT prophylaxis per Surgery - IS Q1hr - OOB ambulate when able Former smoker 12/13/2021 08/25/2023 Last Assessment & Plan: Assessment: cessation 10/2021 per patient. Elevated dehydroepiandrosterone (DHEA) level 0 03/01/2022 Facet arthropathy, lumbar 05/17/2016 Chronic midline low back zully n without sciatica 05/17/2016 03/01/2022 Low back pain 09/14/2015 05/17/2016 Chronic pain 09/14/2015 05/17/2016 Neurodermatitis 04/22/2013 06/23/2021 Eczematous dermatitis 04/22/20132020 Pyoderma, unspecified 04/22/20132019 Impetigo 04/22/2013 09/16/2019 Pruritus 04/22/2013 09/16/2019 Excoriation 04/22/2013 09/16/2019 Prurigo papule 04/22/2013 03/01/2022 Lichenification and lichen simplex chronicus 3 06/23/2021 Xerosis cutis 04/22/2013 09/16/2019 Duodenitis 09/14/2011 06/23/2021 Acute gastritis without mention of hemorrhage 09/14/19 12 06/23/2021 Cough 05/30/2006 09/16/2019 Other acne 04/08/2005 09/16/2019 Other specified endocrine disorders 04/08/2005 09/16/2019 Allergy-induced asthma, mild intermittent, uncomplicated 08/25/2023 Last Assessment & Plan: Assessment: well controlled with albuterol inh. documented as of this encounter (statuses as of 10/18/2023) [facility] Narrative* Problem Noted Date Diagnosed Date Resolved Date S/P hardware removal 05/17/2022 024 Generalized weakness 03/05/2022 024 Orthopedic aftercare 03/03/2022 024 Suicidal ideation 03/03/2022 07/04/2022 Poor compliance 02/28/2022 08/25/2023 Hypomagnesemia 02/24/2022 03/01/2022 Last Assessment & Plan: Assessment: Hypomagnesemia Plan:Electrolyte replacement prn to keep Mg>2 Acute postoperative pain 02/23/2022 Last Assessment & Plan: Assessment: Acute post-operative pain, ? Post surgical radiculopathy : Surgical team aware. 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 Pt has an appt 02/14/2022 with vascular for pre-op clearance/follow up. Post-operative state 01/07/2022 022 Last Assessment & Plan: Assessment: s/p TILF Decompression Laminectomy PLAN: - DVT prophylaxis per Surgery - IS Q1hr - OOB ambulate when able Former smoker 12/13/2021 08/25/2023 Last Assessment & Plan: Assessment: cessation 10/2021 per patient. Elevated dehydroepiandrosterone (DHEA) level 0 03/01/2022 Facet arthropathy, lumbar 05/17/2016 Chronic midline low back zully n without sciatica 05/17/2016 03/01/2022 Low back pain 09/14/2015 05/17/2016 Chronic pain 09/14/2015 05/17/2016 Neurodermatitis 04/22/2013 06/23/2021 Eczematous dermatitis 04/22/20132020 Pyoderma, unspecified 04/22/20132019 Impetigo 04/22/2013 09/16/2019 Pruritus 04/22/2013 09/16/2019 Excoriation 04/22/2013 09/16/2019 Prurigo papule 04/22/2013 03/01/2022 Lichenification and lichen simplex chronicus 3 06/23/2021 Xerosis cutis 04/22/2013 09/16/2019 Duodenitis 09/14/2011 06/23/2021 Acute gastritis without mention of hemorrhage 09/14/19 12 06/23/2021 Cough 05/30/2006 09/16/2019 Other acne 04/08/2005 09/16/2019 Other specified endocrine disorders 04/08/2005 09/16/2019 Allergy-induced asthma, mild intermittent, uncomplicated 08/25/2023 Last Assessment & Plan: Assessment: well controlled with albuterol inh. documented as of this encounter (statuses as of 11/12/2023) [facility]10[facility] History of Past illness Narrative* Problem Noted Date Diagnosed Date Resolved Date S/P hardware removal 05/17/2022 024 Generalized weakness 03/05/2022 024 Orthopedic aftercare 03/03/2022 024 Suicidal ideation 03/03/2022 07/04/2022 Poor compliance 02/28/2022 08/25/2023 Hypomagnesemia 02/24/2022 03/01/2022 Last Assessment & Plan: Assessment: Hypomagnesemia Plan:Electrolyte replacement prn to keep Mg>2 Acute postoperative pain 02/23/2022 Last Assessment & Plan: Assessment: Acute post-operative pain, ? Post surgical radiculopathy : Surgical team aware. 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 Pt has an appt 02/14/2022 with vascular for pre-op clearance/follow up. Post-operative state 01/07/2022 022 Last Assessment & Plan: Assessment: s/p TILF Decompression Laminectomy PLAN: - DVT prophylaxis per Surgery - IS Q1hr - OOB ambulate when able Former smoker 12/13/2021 08/25/2023 Last Assessment & Plan: Assessment: cessation 10/2021 per patient. Elevated dehydroepiandrosterone (DHEA) level 0 03/01/2022 Facet arthropathy, lumbar 05/17/2016 Chronic midline low back zully n without sciatica 05/17/2016 03/01/2022 Low back pain 09/14/2015 05/17/2016 Chronic pain 09/14/2015 05/17/2016 Neurodermatitis 04/22/2013 06/23/2021 Eczematous dermatitis 04/22/20132020 Pyoderma, unspecified 04/22/20132019 Impetigo 04/22/2013 09/16/2019 Pruritus 04/22/2013 09/16/2019 Excoriation 04/22/2013 09/16/2019 Prurigo papule 04/22/2013 03/01/2022 Lichenification and lichen simplex chronicus 3 06/23/2021 Xerosis cutis 04/22/2013 09/16/2019 Duodenitis 09/14/2011 06/23/2021 Acute gastritis without mention of hemorrhage 09/14/19 12 06/23/2021 Cough 05/30/2006 09/16/2019 Other acne 04/08/2005 09/16/2019 Other specified endocrine disorders 04/08/2005 09/16/2019 Allergy-induced asthma, mild intermittent, uncomplicated 08/25/2023 Last Assessment & Plan: Assessment: well controlled with albuterol inh. documented as of this encounter (statuses as of 11/14/2023) [facility] History of Past illness Narrative* Problem Noted Date Diagnosed Date Resolved Date S/P hardware removal 05/17/2022 024 Generalized weakness 03/05/2022 024 Orthopedic aftercare 03/03/2022 024 Suicidal ideation 03/03/2022 07/04/2022 Poor compliance 02/28/2022 08/25/2023 Hypomagnesemia 02/24/2022 03/01/2022 Last Assessment & Plan: Assessment: Hypomagnesemia Plan:Electrolyte replacement prn to keep Mg>2 Acute postoperative pain 02/23/2022 Last Assessment & Plan: Assessment: Acute post-operative pain, ? Post surgical radiculopathy : Surgical team aware. 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 Pt has an appt 02/14/2022 with vascular for pre-op clearance/follow up. Post-operative state 01/07/2022 022 Last Assessment & Plan: Assessment: s/p TILF Decompression Laminectomy PLAN: - DVT prophylaxis per Surgery - IS Q1hr - OOB ambulate when able Former smoker 12/13/2021 08/25/2023 Last Assessment & Plan: Assessment: cessation 10/2021 per patient. Elevated dehydroepiandrosterone (DHEA) level 0 03/01/2022 Facet arthropathy, lumbar 05/17/2016 Chronic midline low back zully n without sciatica 05/17/2016 03/01/2022 Low back pain 09/14/2015 05/17/2016 Chronic pain 09/14/2015 05/17/2016 Neurodermatitis 04/22/2013 06/23/2021 Eczematous dermatitis 04/22/20132020 Pyoderma, unspecified 04/22/20132019 Impetigo 04/22/2013 09/16/2019 Pruritus 04/22/2013 09/16/2019 Excoriation 04/22/2013 09/16/2019 Prurigo papule 04/22/2013 03/01/2022 Lichenification and lichen simplex chronicus 3 06/23/2021 Xerosis cutis 04/22/2013 09/16/2019 Duodenitis 09/14/2011 06/23/2021 Acute gastritis without mention of hemorrhage 09/14/19 12 06/23/2021 Cough 05/30/2006 09/16/2019 Other acne 04/08/2005 09/16/2019 Other specified endocrine disorders 04/08/2005 09/16/2019 Allergy-induced asthma, mild intermittent, uncomplicated 08/25/2023 Last Assessment & Plan: Assessment: well controlled with albuterol inh. documented as of this encounter (statuses as of 11/22/2023) [facility] History of Past illness Narrative* Problem Noted Date Diagnosed Date Resolved Date S/P hardware removal 05/17/2022 024 Generalized weakness 03/05/2022 024 Orthopedic aftercare 03/03/2022 024 Suicidal ideation 03/03/2022 07/04/2022 Poor compliance 02/28/2022 08/25/2023 Hypomagnesemia 02/24/2022 03/01/2022 Last Assessment & Plan: Assessment: Hypomagnesemia Plan:Electrolyte replacement prn to keep Mg>2 Acute postoperative pain 02/23/2022 Last Assessment & Plan: Assessment: Acute post-operative pain, ? Post surgical radiculopathy : Surgical team aware. 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 Pt has an appt 02/14/2022 with vascular for pre-op clearance/follow up. Post-operative state 01/07/2022 022 Last Assessment & Plan: Assessment: s/p TILF Decompression Laminectomy PLAN: - DVT prophylaxis per Surgery - IS Q1hr - OOB ambulate when able Former smoker 12/13/2021 08/25/2023 Last Assessment & Plan: Assessment: cessation 10/2021 per patient. Elevated dehydroepiandrosterone (DHEA) level 0 03/01/2022 Facet arthropathy, lumbar 05/17/2016 Chronic midline low back zully n without sciatica 05/17/2016 03/01/2022 Low back pain 09/14/2015 05/17/2016 Chronic pain 09/14/2015 05/17/2016 Neurodermatitis 04/22/2013 06/23/2021 Eczematous dermatitis 04/22/20132020 Pyoderma, unspecified 04/22/20132019 Impetigo 04/22/2013 09/16/2019 Pruritus 04/22/2013 09/16/2019 Excoriation 04/22/2013 09/16/2019 Prurigo papule 04/22/2013 03/01/2022 Lichenification and lichen simplex chronicus 3 06/23/2021 Xerosis cutis 04/22/2013 09/16/2019 Duodenitis 09/14/2011 06/23/2021 Acute gastritis without mention of hemorrhage 09/14/19 12 06/23/2021 Cough 05/30/2006 09/16/2019 Other acne 04/08/2005 09/16/2019 Other specified endocrine disorders 04/08/2005 09/16/2019 Allergy-induced asthma, mild intermittent, uncomplicated 08/25/2023 Last Assessment & Plan: Assessment: well controlled with albuterol inh. documented as of this encounter (statuses as of 11/22/2023) [facility] History of Past illness Narrative* Problem Noted Date Diagnosed Date Resolved Date S/P hardware removal 05/17/2022 024 Generalized weakness 03/05/2022 024 Orthopedic aftercare 03/03/2022 024 Suicidal ideation 03/03/2022 07/04/2022 Poor compliance 02/28/2022 08/25/2023 Hypomagnesemia 02/24/2022 03/01/2022 Last Assessment & Plan: Assessment: Hypomagnesemia Plan:Electrolyte replacement prn to keep Mg>2 Acute postoperative pain 02/23/2022 Last Assessment & Plan: Assessment: Acute post-operative pain, ? Post surgical radiculopathy : Surgical team aware. 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 Pt has an appt 02/14/2022 with vascular for pre-op clearance/follow up. Post-operative state 01/07/2022 022 Last Assessment & Plan: Assessment: s/p TILF Decompression Laminectomy PLAN: - DVT prophylaxis per Surgery - IS Q1hr - OOB ambulate when able Former smoker 12/13/2021 08/25/2023 Last Assessment & Plan: Assessment: cessation 10/2021 per patient. Elevated dehydroepiandrosterone (DHEA) level 0 03/01/2022 Facet arthropathy, lumbar 05/17/2016 Chronic midline low back zully n without sciatica 05/17/2016 03/01/2022 Low back pain 09/14/2015 05/17/2016 Chronic pain 09/14/2015 05/17/2016 Neurodermatitis 04/22/2013 06/23/2021 Eczematous dermatitis 04/22/20132020 Pyoderma, unspecified 04/22/20132019 Impetigo 04/22/2013 09/16/2019 Pruritus 04/22/2013 09/16/2019 Excoriation 04/22/2013 09/16/2019 Prurigo papule 04/22/2013 03/01/2022 Lichenification and lichen simplex chronicus 3 06/23/2021 Xerosis cutis 04/22/2013 09/16/2019 Duodenitis 09/14/2011 06/23/2021 Acute gastritis without mention of hemorrhage 09/14/19 12 06/23/2021 Cough 05/30/2006 09/16/2019 Other acne 04/08/2005 09/16/2019 Other specified endocrine disorders 04/08/2005 09/16/2019 Allergy-induced asthma, mild intermittent, uncomplicated 08/25/2023 Last Assessment & Plan: Assessment: well controlled with albuterol inh. documented as of this encounter (statuses as of 09/12/2023) [facility]10-[facility] Miscellaneous Notes* Telephone Encounter - April Deluca RN - 05/11/2022 9:08 AM EDT Call placed to patient to inform of new order entered for metabolic bone. Per Dr. Birch, Pt does notneed to follow up with metabolic bone prior to surgery. Pt states she has seen Dr. Knowles in the pastand is familiar. [facility] History of Present illness Narrative* April Deluca RN - 05/09/2022 3:08 PM EDT Neuro SPINE CARE COORDINATION SURGERY SCHEDULING Patient accepts surgery date of 05/17/[address] Birch. Planned procedure is Bilateral Removal ofiliac screws. PACC will be arranged by office. [employer] : NA Medications reviewed : Yes. Meds to be stopped prior to surgery : NSAIDS and Vitamins and supplements. Additional pre op clearances needed : none. Any implanted devices : No. Transplant History No . Patient will get optimization lab work : to be completed during PAT. Questions answered. Patient verbalizes understanding via teach back. Additional comments : Emotional support provided Preoperative Needs Assessment Age >70 or Anticipated LOS > 5 days: No Lives alone/minimal assist available at home or Difficulty taking care of self: No Significant home social issues or Current history or past history of substance abuse: No Wheelchair baseline, Homebound baseline, Significant gait instability, or History of significant falls: No Thora/lumbar fusion any level planned or 2+ level posterior cervical fusion planned: No Myelopathic or Spine tumor: No Probability of non-home discharge disposition : Low [0] Stanley Deluca RN Neuro SPINE CARE COORDINATION PRE-OP VISIT Spoke with patient over the phone for pre op education. Given both written and verbal instructions re : Skin prep, wound care, pain management and post op restrictions. Stated she received at office visit. Provided to patient: [facility] Surgery Guide, skin prep supplies, Spine Surgery Pre/post op education packet. Yes. Reviewed with patient to report to surgical registration desk for surgery ? Yes. Reviewed with the patient that a pharmacy services representative will call the day before to get surgery report time? Yes. Patient aware eat nothing after midnight prior to surgery, clear liquids only until 2 hours before report time. Yes. Patient aware surgery will be OUTPATIENT: extended recovery. Discussed care post discharge : self care. Does patient have transportation to and from surgery ? Yes. Falls Education provided ? Yes Nasal swab obtained ? Yes. Patient instructed in mupirocin treatment : to be prescribed at preferred pharmacy. Questions answered and patient does voice(s) understanding via teach back. Physical Therapy : NA Additional Comments : Pre/Post -op Support provided Stanley Deluca RN * Caroline Natanael - 05/09/2022 1:15 PM EDT Images from the original note were not included. SPINE SURGERY FOLLOW UP SERVICE DATE: 05/09/2022 SURGERY DATE: 02/23/2022 Elsy Dinero is a 51 year old female who presents 3 months s/p L2 to ilium instrumented fusion, L3, 4 and 5 laminectomy, L2-3, 3-4 and L5-S1 transforaminal lumbar interbody fusion. Preoperatively, this patient had severe pain going down the leg and also back pain and imaging showed an L4-5 spondylolisthesis also with severe foraminal stenosis of the L4 and L5 nerve roots and also central stenosis and also degenerative scoliosis. At [facility], the patient reported her left leg pain was much improved, but her right leg pain persisted.She stated her right leg was tingling. She stated she could not sit, stand or walk for long periodsof time at all. She stated she felt unsteady on her feet and that she was tripping over her feet often because her right leg would give out under her. She believed her right leg may be getting worse. Today, the patient reports continued back pain that radiates into the right thigh and calf. She denies any issues with her left leg. She states she continues to experience drop foot in her right foot. She states that when she is swimming she feels normal again. She also reports she is gaining weight. 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 PAIN EVALUATION 05/09/2022 1303 Pain Level: 9 Pain Location: Back right side Description: Radiating;Stabbing/Not Incision Frequency: Continuous Pain Radiation: back pain that radiates into the right thigh and calf Aggravating Factors: Standing, Walking Alleviating Factors: Sitting, Swimming ANTIPLATELET OR ANTICOAGULATION STATUS: No Patient Entered Questionnaires Spine Questions 04/27/2021 06/10/2021 12/20/2021 Pain Location: Lower back Lower back Lower back Pain Duration: More than 5 years - - Symptoms from neck/cervical spine: No No No Employment Status: - - Working now Involved in law suit/legal claim: - - No Spine Red Flags 04/27/2021 Any type of cancer: No Unexplained fever: No Bowel or bladder disfunction: Yes Unintentional weight loss: No Osteoporosis: No PROMIS Score Percentiles Physical Health 04/27/2021 06/10/2021 12/20/2021 Physical Function Percentile 3 2 2 Sleep Percentile 4 4 21* Fatigue Percentile 14 1 4 Pain Interference Percentile 1 1 4 PROMIS SOCIAL ROLE SCORE 04/27/2021 06/10/2021 12/20/2021 Social Role Satisfaction Percentile 10 8 18* PROMIS Global Health Scale 05/17/2016 04/27/2021 12/20/2021 Physical Health Percentile 7 4 2 Mental Health Percentile 26* 43 13 Percentiles provide an indication of how the patient's score ranks in relation to the general population. Higher percentile rankings indicate better function/quality of life. 50th percentile is the average of the general population and indicates half of respondents had a worse score. Depression Screening: PHQ-9 04/27/2021 06/10/2021 12/20/2021 Score 9 10 10 PHQ-9 Self-harm Question 04/27/2021 06/10/202112/2012/20/2021 Thoughts that you would be better off , or of hurting yourself in some way 0 0 0 PHQ-9 Self-Harm (Item 9) response options: 0 Not at all 1 Several days 2 More than half the days 3 Nearly every day PHQ-9 Levels: 0-4 No to mild depression 5-9 Mild depression 10-14 Moderate depression 15-19 Moderately severe depression 20-27 Severe depression PHYSICAL EXAM: BP 120/72 Pulse 77 Ht 167.6 cm (5' 6) Wt 73.9 kg (163 lb) LMP 03/02/2015 SpO2 97% BMI 26.31 kg/m GENERAL APPEARANCE: Well nourished, well developed, and no apparent distress. NEURO PSYCH: Patient oriented to person, place, and time. Mood pleasant. Benign affect. MUSCULOSKELETAL VISUAL INSPECTION: incision well healed CERVICAL: WNL THORACIC: WNL LUMBAR: WNL MOTOR: 5/5 in all muscle groups. SENSORY: Normal sensory exam GAIT: Normal. REFLEXES: +2 to bilateral U/L extremities. STRAIGHT LEG TEST: Normal Good sagittal balance. NEURO TESTS: None DATA REVIEW [facility] records independently reviewed Imaging and outside records independently reviewed Images independently reviewed with the patient CT LUMBAR SPINE WO IVCON 05/05/2022 IMPRESSION: New minimal compression fractures involving L1 and L2 vertebral body superior endplates. Minimal overall vertebral body height loss with no retropulsion. Previously seen right iliac fracture is healing. Patent canal and foramina. Anatomic Thoracic/Lumbar Variant: None. L4-5 is considered the level of the iliac crest and assume there are 5 lumbar-type vertebrae. ASSESSMENT/PLAN 3 months s/p L2 to ilium instrumented fusion, L3, 4 and 5 laminectomy, L2-3, 3-4 and L5-S1 transforaminal lumbar interbody fusion. Elsy Anthony Dinero is clinically indicated and wishes to pursue Bilateral removal of iliac screws. The risks, benefits, and anticipated outcomes of the procedure/treatment/test, the alternatives to the procedure/treatment/test and their risks and benefits, and the roles and tasks of the personnel to be involved were discussed with the patient or the patient s personal pharmacy services representative. The patient has elected to schedule surgery at this time or intends to call the office with a surgical date. Shared decision making occurred while obtaining informed consent. Medications: methocarbamol 750 mg TID. Medications: Gabapentin 300 mg take 3 capsules by mouth daily at bedtime AND 2 capsules twice daily. Nasal swab for pre op testing. Follow up: post op I spent a total of 15 minutes on the date of the service which included preparing to see the patient, [id number] patient care, completing clinical documentation, obtaining and/or reviewing separately obtained history, performing a medically appropriate examination, and counseling and educating the patient/family/caregiver. Scribe Attestation: By signing my name below, ICaroline, attest that this documentation has been prepared under the direction and in the presence of Dr. Ambrose Birch.Electronically Signed: Ana Maria Kimball. May 09, 2022 7:59 AM Provider Attestation:I, Dr. Ambrose Birch, personally performed the services described in this documentation. All medical record entries made by the scribe were at my direction and in my presence. I have reviewed the chart and discharge instructions (if applicable) and agree that the record reflects my personal performance and is accurate and complete. Electronically Signed: Dr. Ambrose Birch. May 09, 2022 7:59 AM SIGNATURE: Ambrose Birch MD PATIENT NAME: Elsy Dinero DATE: May 09, 2022 TIME: 7:59 AM PAGER: documented in this encounter[facility] History of Present illness Narrative* Clare Sen, RT(R) - 05/05/2022 10:40 AM EDT Radiology Service Progress Note PATIENT NAME: Elsy Dinero DATE OF SERVICE: May 05, 2022 TIME: 12:33 PM PATIENT IDENTITY VERIFICATION COMPLETED USING TWO (2) IDENTIFIERS: Name and Date of confirmedby patient verbally. FALL SCREENING: Has the patient had 2 falls in the last year or 1 fall with injury or currently using an Ambulatory Assistive Device (Walker, Cane, Wheelchair, Crutches, etc.)? No PATIENT GENDER DATA: Female. status: : No status: NO. PATIENT RELEVANT IMPLANT DATA REVIEWED: Not Applicable RADIOLOGY DEPARTMENT: CT; Exam(s) Completed: Spine PERIPHERAL IV DATA: Not applicable SIGNED BY: RT Shahbaz(R) May 05, 2022 12:33 PM documented in this encounterKe[facility] History of Present illness Narrative* Caroline Santoyo - 04/21/2022 12:01 PM EDT SPINE SURGERY FOLLOW UP SERVICE DATE: 04/21/2022 SURGERY DATE: 02/23/2022 Elsy Dinero is a 51 year old female who presents 2 months s/p L2 to ilium instrumented fusion, L3, 4 and 5 laminectomy, L2-3, 3-4 and L5-S1 transforaminal lumbar interbody fusion. Preoperatively, this patient had severe pain going down the leg and also back pain and imaging showed an L4-5 spondylolisthesis also with severe foraminal stenosis of the L4 and L5 nerve roots and also central stenosis and also degenerative scoliosis. At [facility], the patient reported low back pain and right leg pain. She also had right leg weakness. Shesaid her pain had not improved since surgery. She denied any issues with her left leg. Her regina were removed. She reported having some bladder dysfunction. Today, the patient reports that her left leg pain is much improved, but her right leg pain persists. She states her right leg is tingling. She states she cant sit, stand or walk for long periods of time at all. She states she feels unsteady on her feet and that she is tripping over her feet often because her right leg gives out under her. She feels her right leg may be getting worse. ANTIPLATELET OR ANTICOAGULATION STATUS: No Patient Entered Questionnaires Spine Questions 04/27/2021 06/10/2021 12/20/2021 Pain Location: Lower back Lower back Lower back Pain Duration: More than 5 years - - Symptoms from neck/cervical spine: No No No Employment Status: - - Working now Involved in law suit/legal claim: - - No Spine Red Flags 04/27/2021 Any type of cancer: No Unexplained fever: No Bowel or bladder disfunction: Yes Unintentional weight loss: No Osteoporosis: No PROMIS Score Percentiles Physical Health 04/27/2021 06/10/2021 12/20/2021 Physical Function Percentile 3 2 2 Sleep Percentile 4 4 21* Fatigue Percentile 14 1 4 Pain Interference Percentile 1 1 4 PROMIS SOCIAL ROLE SCORE 04/27/2021 06/10/2021 12/20/2021 Social Role Satisfaction Percentile 10 8 18* PROMIS Global Health Scale 05/17/2016 04/27/2021 12/20/2021 Physical Health Percentile 7 4 2 Mental Health Percentile 26* 43 13 Percentiles provide an indication of how the patient's score ranks in relation to the general population. Higher percentile rankings indicate better function/quality of life. 50th percentile is the average of the general population and indicates half of respondents had a worse score. Depression Screening: PHQ-9 04/27/2021 06/10/2021 12/20/2021 Score 9 10 10 PHQ-9 Self-harm Question 04/27/2021 06/10/2021 12/20/2021 Thoughts that you would be better off , or of hurting yourself in some way 0 0 0 PHQ-9 Self-Harm (Item 9) response options: 0 Not at all 1 Several days 2 More than half the days 3 Nearly every day PHQ-9 Levels: 0-4 No to mild depression 5-9 Mild depression 10-14 Moderate depression 15-19 Moderately severe depression 20-27 Severe depression PHYSICAL EXAM: BP 113/62 (BP Site: Left Arm, BP Position: Sitting, BP Cuff Size: Regular Adult) Pulse 76 Ht 165.1 cm (5' 5) Wt 72.8 kg (160 lb 8 oz) LMP 03/02/2015 BMI 26.71 kg/m GENERAL APPEARANCE: Well nourished, well developed, and no apparent distress. NEURO PSYCH: Patient oriented to person, place, and time. Mood pleasant. Benign affect. MUSCULOSKELETAL VISUAL INSPECTION CERVICAL: WNL THORACIC: WNL LUMBAR: WNL MOTOR: 5/5 in all muscle groups, except 4+ Right EHL. SENSORY: Normal sensory exam GAIT: Normal. REFLEXES: +2 to bilateral U/L extremities. STRAIGHT LEG TEST: Normal Good sagittal balance. NEURO TESTS: None DATA REVIEW [facility] records independently reviewed Imaging and outside records independently reviewed Images independently reviewed with the patient MRI SACRAL PLEXUS WO IVCON 02/25/2022 IMPRESSION: Postsurgical changes of lumbosacral fusion with bilateral iliac screws. There is protrusion of the right-sided iliac screw through the greater sciatic foramen with edema of the right piriformis muscle and mild edema/enlargement in the proximal right sciatic nerve. No discrete discontinuity or disruption of the sacral plexus nerve roots or sciatic nerves. ASSESSMENT/PLAN 2 months s/p L2 to ilium instrumented fusion, L3, 4 and 5 laminectomy, L2-3, 3-4 and L5-S1 transforaminal lumbar interbody fusion. Elsy Dinero has a condition that requires further workup. Imaging: Lumbar CT Without Contrast Symptoms of neuro deficit or red flag symptoms listed in HPI Follow up: Four weeks I spent a total of 15 minutes on the date of the service which included preparing to see the patient, [id number] patient care, completing clinical documentation, obtaining and/or reviewing separately obtained history, performing a medically appropriate examination, and counseling and educating the patient/family/caregiver. Scribe Attestation: By signing my name below, I, Caroline Santoyo, attest that this documentation has been prepared under the direction and in the presence of Dr. Ambrose Birch.Electronically Signed: Ana Maria Kimball. April 21, 2022 12:01 PM Provider Attestation:I, Dr. Ambrose Birch, personally performed the services described in this documentation. All medical record entries made by the scribe were at my direction and in my presence. I have reviewed the chart and discharge instructions (if applicable) and agree that the record reflects my personal performance and is accurate and complete. Electronically Signed: Dr. Ambrose Birch. April 21, 2022 12:01 PM SIGNATURE: Ambrose Birch MD PATIENT NAME: Elsy Dinero DATE: April 21, 2022 TIME: 12:01 PM PAGER: documented in this encounterKeenan [facility]22 Miscellaneous Notes* Telephone Encounter - Becky Sun PA-C - 04/01/2022 2:56 PM EDT I called Carlie on 04/01/2022 at 2:56 PM. Left a voicemail advising suture is dissolvable and if exposed end is long enough to grab with forceps the end can be trimmed. Offered a visit for a wound check if needed. Advised her to call back with any questions. * Telephone Encounter - April Deluca RN - 04/01/2022 1:24 PM EDT Call placed to Carlie to inquire if a photo was taken and could be sent to provider, no answer. Message left with return number. Call also placed to pt who states she has a photo. Asked if pt could send it through [employer] for viewing. Pt instructed on procedure to upload photo but states she is having difficulty. * Telephone Encounter - Delia Dee [facility] - 04/01/2022 10:16 AM EDT Carlie from [facility] called to report on the patient's incision. She said it looks good except a small part at the top there is a white frayed thread. She wants to know if the suture's are dissolvable, and if that is supposed to be there. Please call her at [phone] documented in this encounterKeenan [facility] Hospital08-24-2022 Miscellaneous Notes* Telephone Encounter - Osmani Chang RN - 03/30/2022 1:43 PM EDT Physician spoke with patient. * Telephone Encounter - Delia Dee Pss - 03/29/2022 2:38 PM EDT Patient called for EMG results. She would like a call back at [phone] documented in this encounterKeenan [facility] Hospital08-23-2022 History of Present illness Narrative* Elvin Diaz MD - 03/29/2022 11:24 AM EDT This note was created using [employer]. 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 She had lumbar TFLIF of multiple segments 02/23. Postoperative course was protracted by significant pain impacting on suicide ideation and non compliance to therapy. She was discharged to [facility] 03/03/22 for rehab and was back home 03/14/22. Her pain wasmuch better and she was ambulating with her rollator walker. She was using a bone stimulator, and just underwent an EMG yesterday. She was anxious about right leg weakness which might impact on her ability to resume activities like hiking or kayaking. She was on aldactone for hirsutism from her claims service representative but had no appointment scheduled at this time. She requested a refill of aldactone for the time being. Review of Systems Constitutional: Negative. Respiratory: Negative. Cardiovascular: Negative. Gastrointestinal: Negative. Genitourinary: Negative. Musculoskeletal: Positive for arthralgias, back pain and gait problem. Neurological: Positive for weakness. Psychiatric/Behavioral: Negative for self-injury and suicidal ideas. The patient is nervous/anxious. ACTIVE PROBLEM LIST Allergy-Induced Asthma, Mild Intermittent, Uncomplicated Spinal Stenosis, Lumbar Region With Neurogenic Claudication Acid Reflux Hirsutism Pure Hypercholesterolemia Former Smoker Lumbar Stenosis With Neurogenic Claudication S/P Lumbar Spinal Fusion Poor Compliance Orthopedic Aftercare Suicidal Ideation Generalized Weakness History of Dvt (Deep Vein Thrombosis) Social History Tobacco Use Smoking status: Former Packs/day: 1.00 Years: 40.00 Pack years: 40.00 Types: Cigarettes Smokeless tobacco: Never Tobacco comments: started age 13, quit 52 days ago Vaping Use Vaping Use: Never used Substance Use Topics Alcohol use: Not Currently Drug use: Not Currently Comment: experimented in 20s Current Outpatient Medications Medication Sig gabapentin (NEURONTIN) 300 mg capsule Take 3 capsules by mouth daily at bedtime AND 2 capsules twice daily with meals. Do all this for 30 days. methocarbamol (ROBAXIN) 750 mg tablet Take 1 tablet by mouth three times daily. acetaminophen (TYLENOL) 500 mg tablet Take 2 tablets by mouth every 8 hours. docusate sodium (COLACE) 100 mg capsule Take 1 capsule by mouth twice daily. fexofenadine (STANLEY ALLERGY) 180 mg tablet Take 180 mg by mouth once daily. spironolactone (ALDACTONE) 50 mg tablet Take 1 tablet by mouth twice daily. Per Dr. Roger Elam, dermatology. albuterol sulfate (PROAIR RESPICLICK) 90 mcg/actuation aepb Inhale 2 Puffs as instructed every 4 hours as needed. famotidine (PEPCID ORAL) Take 1 tablet by mouth twice daily. No current facility-administered medications for this visit. Objective BP 122/76 Pulse 76 Resp 16 Wt 69.4 kg (153 lb) LMP 03/02/2015 BMI 25.46 kg/m Physical Exam Constitutional: General: She is not in acute distress. Appearance: She is not ill-appearing. Cardiovascular: Rate and Rhythm: Normal rate and regular rhythm. Heart sounds: No murmur heard. No gallop. Pulmonary: Effort: Pulmonary effort is normal. Breath sounds: Normal breath sounds. Abdominal: General: There is no distension. Palpations: Abdomen is soft. Tenderness: There is no abdominal tenderness. Musculoskeletal: Right lower leg: No edema. Left lower leg: No edema. Comments: Lumbosacral incision healed. Neurological: Mental Status: She is alert. Sensory: No sensory deficit. Gait: Gait abnormal. Comments: Ambulatory with rollator. Transfers okay. Toe walk intact bilaterally. Decreased heel walk on the right. Psychiatric: Mood and Affect: Mood normal. Behavior: Behavior normal. Assessment and Plan 1. S/P lumbar spinal fusion - ICD9: V45.4, ICD10: Z98.1 (primary diagnosis) Follow up with spine. Continue physical therapy. 2. Lumbar stenosis with neurogenic claudication - ICD9: 724.03, ICD10: M48.062 See above. 3. Spinal stenosis, lumbar region with neurogenic claudication - ICD9: 724.03, ICD10: M48.062 See above. 4. Generalized weakness - ICD9: 780.79, ICD10: R53.1 Improved. 5. Hirsutism - ICD9: 704.1, ICD10: L68.0 Short term refill given. - SPIRONOLACTONE 50 MG TABLET Elvin Diaz MD documented in this encounterKeenan [facility] Hospital08-22-2022 History of Present illness Narrative* Gato Chauhan MD - 03/28/2022 12:37 PM EDT UNIVERSAL PROTOCOL / SAFETY CHECKLIST Procedure to be Performed: EMG Sign In: A Moment of CARE was completed. Personnel directly involved with the procedure wore the appropriate PPE (Personal Protective Equipment). Patient/Surrogate Stated/Verified: PATIENT VERIFIED(optional for EMERGENT procedures): Patient name, Date of , Relevant allergies, and The intended procedure Time Out Communication: Intended patient and procedure match the source documents. Correct side/site marked and visible. Sign Out: SIGN OUT (optional for EMERGENT procedures): Post-procedure follow-up management communicated and Plan of Care Visit completed when applicable. MD Aleyda Moy, EMG Tech documented in this encounterKeenan [facility] Hospital08-11-2022 Miscellaneous Notes* Telephone Encounter - Amaya Juárez RN - 03/17/2022 4:31 PM EDT Spoke with patient on the phone, she has been discharged from [facility] on Monday. She is very unhappy about the decrease in her pain medication (see messages below). Forwarding this message for review. She is requesting a call from [facility] or Dr. Eyal BACA. * Telephone Encounter - Delia Montemayor - 03/17/2022 1:28 PM EDT Patient called back stating she is still waiting for a call back regarding her pain medications. A PA at the rehab facility reduced her pain medication and muscle relaxer and she is having terrible pain. Please call her at [phone] * Telephone Encounter - Gee Lira RN - 03/16/2022 2:40 PM EDT Spoke with patient who states the following: - States pain to the lower back that radiates to the right hip and down anterior RLE to knee; 9/10 currently; constant and since having her medication frequency decreased, she is waking during the night in pain. - has a home care nurse who states the post op incision is fine. - pain is so bad that she cannot use the Bone Stim as it's too painful. Please advise. * Telephone Encounter - Delia Montemayor - 03/16/2022 2:08 PM EDT Patient called back, still having severe pain 04/16 since leaving hospital. Since the change in medication earlier this week, the pain has increased. Please call patient at [phone] * Telephone Encounter - Elsy Hill - 03/14/2022 3:59 PM EDT Patient [phone] was in [facility] and was just released and the doctor there cut her Robaxin 4 to 3, and the Oxycotion went from every 4 hours to every 6 hours. She is crying and is having great pain and muscle spasms. She doesn't know what to do. documented in this encounterKeenan [facility] Hospital08-09-2022 Miscellaneous Notes* Telephone Encounter - Nusrat Mendez APRN.CNP - 03/15/2022 1:55 PM EDT PCP will follow, okay for below orders Nusrat Mendez APRN.CNP * Telephone Encounter - Daxa Melara RN - 03/15/2022 10:37 AM EDT Evangelina from [facility] calls and states that patient was discharged from Hospital on 03/14/2022 with the diagnosis of back infusion and laminectomy. Evangelina asking if provider willing to follow patient with orders for Half-Way, Physical Therapy, and Occupational Therapy. Evangelina started home health services today. No call back needed. Thank you, Daxa Melara RN documented in this encounterKeenan Private Hospital08-04-2022 Nurse Note* Gee Lira RN - 03/10/2022 3:[address] Birch request, regina removed from lumbar incision without difficulty. Incision line dry and approximated. Steri strips applied to length of incision per Dr. Birch request and dry gauze dressing applied. Patient tolerated without complaints. Also , Dr. Birch would like patient to be up walking 4 times daily with therapy and to call [facility] to inform. Spoke with Martina MOODY and informed of the above. documented in this encounterKeenan Private Hospital08-04-2022 History of Present illness Narrative* Ambrose Birch MD - 03/10/2022 3:00 PM EDT SPINE SURGERY FOLLOW UP SERVICE DATE: 03/10/2022 SURGERY DATE: 02/23/2022 Elsy Dinero is a 51 year old female who is 2 weeks s/p L2 to ilium instrumented fusion, L3, 4and 5 laminectomy, L2-3, 3-4 and L5-S1 transforaminal lumbar interbody fusion. Preoperatively, this patient had severe pain going down the leg and also back pain and imaging showed an L4-5 spondylolisthesis also with severe foraminal stenosis of the L4 and L5 nerve roots and also central stenosis and also degenerative scoliosis. Today, the patient reports low back pain and right leg pain. She also has right leg weakness. She says her pain has not improved since surgery. She denies any issues with her left leg. Her regina were removed today. She reports having some bladder dysfunction. The patient is eating and drinking well. PAIN EVALUATION 03/10/2022 1425 Pain Level: 9 Pain Location: Back-Lower Description: Aching;Dull;Radiating Duration Units: Days Frequency: Continuous Intervention/Comfort measure: Medication ANTIPLATELET OR ANTICOAGULATION STATUS: No Patient Entered Questionnaires Spine Questions 04/27/2021 06/10/2021 12/20/2021 Pain Location: Lower back Lower back Lower back Pain Duration: More than 5 years - - Symptoms from neck/cervical spine: No No No Employment Status: - - Working now Involved in law suit/legal claim: - - No Spine Red Flags 04/27/2021 Any type of cancer: No Unexplained fever: No Bowel or bladder disfunction: Yes Unintentional weight loss: No Osteoporosis: No PROMIS Score Percentiles Physical Health 04/27/2021 06/10/2021 12/20/2021 Physical Function Percentile 3 2 2 Sleep Percentile 4 4 21* Fatigue Percentile 14 1 4 Pain Interference Percentile 1 1 4 PROMIS SOCIAL ROLE SCORE 04/27/2021 06/10/2021 12/20/2021 Social Role Satisfaction Percentile 10 8 18* PROMIS Global Health Scale 05/17/2016 04/27/2021 12/20/2021 Physical Health Percentile 7 4 2 Mental Health Percentile 26* 43 13 Percentiles provide an indication of how the patient's score ranks in relation to the general population. Higher percentile rankings indicate better function/quality of life. 50th percentile is the average of the general population and indicates half of respondents had a worse score. Depression Screening: PHQ-9 04/27/2021 06/10/2021 12/20/2021 Score 9 10 10 PHQ-9 Self-harm Question 04/27/2021 06/10/2021 12/20/2021 Thoughts that you would be better off , or of hurting yourself in some way 0 0 0 PHQ-9 Self-Harm (Item 9) response options: 0 Not at all 1 Several days 2 More than half the days 3 Nearly every day PHQ-9 Levels: 0-4 No to mild depression 5-9 Mild depression 10-14 Moderate depression 15-19 Moderately severe depression 20-27 Severe depression PHYSICAL EXAM: BP 124/57 (BP Site: Left Arm, BP Position: Sitting, BP Cuff Size: Regular Adult) Pulse 75 Temp 36.3 C (97.3 F) Ht 165.1 cm (5' 5) Wt 69.4 kg (153 lb) LMP 03/02/2015 SpO2 98% BMI 25.46 kg/m GENERAL APPEARANCE: Well nourished, well developed, and no apparent distress. NEURO PSYCH: Patient oriented to person, place, and time. Mood pleasant. Benign affect. MUSCULOSKELETAL VISUAL INSPECTION: incision healthy CERVICAL: WNL THORACIC: WNL LUMBAR: WNL MOTOR: 5/5 in all muscle groups. SENSORY: Normal sensory exam GAIT: Normal. REFLEXES: +2 to bilateral unit(s)/L extremities. STRAIGHT LEG TEST: Normal Good sagittal balance. NEURO TESTS: None DATA REVIEW No additional images reviewed today ASSESSMENT/PLAN 2 weeks s/p L2 to ilium instrumented fusion, L3, 4 and 5 laminectomy, L2-3, 3-4 and L5-S1 transforaminal lumbar interbody fusion. Elsy Dinero will continue with medical management of his/her condition. 1. Imaging: EMG/NCS 2. Continue PT. 3. Follow up: 4 weeks I spent a total of 15 minutes on the date of the service which included preparing to see the patient, [id number] patient care, completing clinical documentation, obtaining and/or reviewing separately obtained history, performing a medically appropriate examination, counseling and educating the pat ient/family/caregiver and ordering medications, tests, or procedures. Scribe Attestation: By signing my name below, ICaroline, attest that this documentation has been prepared under the direction and in the presence of Dr. Ambrose Birch. Electronically Signed: Ana Maria Kimball. March 10, 2022 3:14 PM Provider Attestation: Efra, Dr. Ambrose Birch, personally performed the services described in this documentation. All medical record entries made by the scribe were at my direction and in my presence. I have reviewed the chartand discharge instructions (if applicable) and agree that the record reflects my personal performance and is accurate and complete. Electronically Signed: Dr. Ambrose Tapiaibanthony. March 10, 2022 3:14PM SIGNATURE: Ambrose Birch MD PATIENT NAME: Elsy Dinero DATE: March 10, 2022 TIME: 9:11 AM PAGER: documented in this encounterKeenan Private Hospital07-28-2022 History of Past illness Narrative* Problem Noted Date Resolved Date Suicidal ideation 03/03/2022 07/04/2022 Hypomagnesemia 02/24/2022 03/01/2022 Last Assessment & Plan: Assessment: Hypomagnesemia Plan:Electrolyte replacement prn to keep Mg>2 Acute postoperative pain 02/23/2022 022 Last Assessment & Plan: Assessment: Acute post-operative pain, ? Post surgical radiculopathy : Surgical team aware. 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 Pt has an appt 02/14/2022 with vascular for pre-op clearance/follow up. Post-operative state 01/07/2022 03/01/2022 Last Assessment & Plan: Assessment: s/p TILF Decompression Laminectomy PLAN: - DVT prophylaxis per Surgery - IS Q1hr - OOB ambulate when able Elevated dehydroepiandrosterone (DHEA) level 05/202003/01/2022 Facet arthropathy, lumbar 05/17/20162021 Chronic midline low back pain without sciatica 1 03/01/2022 Low back pain 09/14/2015 05/17/2016 Chronic pain 09/14/2015 05/17/2016 Neurodermatitis 04/22/2013 06/23/2021 Eczematous dermatitis 04/22/2013 06/23/2021 Pyoderma, unspecified 04/22/2013 09/16/2019 Impetigo 04/22/2013 09/16/2019 Pruritus 04/22/2013 09/16/2019 Excoriation 04/22/2013 09/16/2019 Prurigo papule 04/22/2013 03/01/2022 Lichenification and lichen simplex chronicus 06/23/2021 Xerosis cutis 04/22/2013 09/16/2019 Duodenitis 09/14/2011 06/23/2021 Acute gastritis without mention of hemorrhage 06/23/2021 Tobacco use disorder 04/11/2007 03/01/2022 Cough 05/30/2006 09/16/2019 Other acne 04/08/2005 09/16/2019 Other specified endocrine disorders 04/08/2005 09/16/2019 documented as of this encounter (statuses as of 07/04/2022) [facility] of Past illness Narrative* Problem Noted Date Resolved Date Suicidal ideation 03/03/2022 07/04/2022 Hypomagnesemia 02/24/2022 03/01/2022 Last Assessment & Plan: Assessment: Hypomagnesemia Plan:Electrolyte replacement prn to keep Mg>2 Acute postoperative pain 02/23/2022 022 Last Assessment & Plan: Assessment: Acute post-operative pain, ? Post surgical radiculopathy : Surgical team aware. 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 Pt has an appt 02/14/2022 with vascular for pre-op clearance/follow up. Post-operative state 01/07/2022 03/01/2022 Last Assessment & Plan: Assessment: s/p TILF Decompression Laminectomy PLAN: - DVT prophylaxis per Surgery - IS Q1hr - OOB ambulate when able Elevated dehydroepiandrosterone (DHEA) level 05/202003/01/2022 Facet arthropathy, lumbar 05/17/20162021 Chronic midline low back pain without sciatica 1 03/01/2022 Low back pain 09/14/2015 05/17/2016 Chronic pain 09/14/2015 05/17/2016 Neurodermatitis 04/22/2013 06/23/2021 Eczematous dermatitis 04/22/2013 06/23/2021 Pyoderma, unspecified 04/22/2013 09/16/2019 Impetigo 04/22/2013 09/16/2019 Pruritus 04/22/2013 09/16/2019 Excoriation 04/22/2013 09/16/2019 Prurigo papule 04/22/2013 03/01/2022 Lichenification and lichen simplex chronicus 06/23/2021 Xerosis cutis 04/22/2013 09/16/2019 Duodenitis 09/14/2011 06/23/2021 Acute gastritis without mention of hemorrhage 06/23/2021 Tobacco use disorder 04/11/2007 03/01/2022 Cough 05/30/2006 09/16/2019 Other acne 04/08/2005 09/16/2019 Other specified endocrine disorders 04/08/2005 09/16/2019 documented as of this encounter (statuses as of 07/04/2022) [facility] of Past illness Narrative* Problem Noted Date Resolved Date Suicidal ideation 03/03/2022 07/04/2022 Hypomagnesemia 02/24/2022 03/01/2022 Last Assessment & Plan: Assessment: Hypomagnesemia Plan:Electrolyte replacement prn to keep Mg>2 Acute postoperative pain 02/23/2022 022 Last Assessment & Plan: Assessment: Acute post-operative pain, ? Post surgical radiculopathy : Surgical team aware. 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 Pt has an appt 02/14/2022 with vascular for pre-op clearance/follow up. Post-operative state 01/07/2022 03/01/2022 Last Assessment & Plan: Assessment: s/p TILF Decompression Laminectomy PLAN: - DVT prophylaxis per Surgery - IS Q1hr - OOB ambulate when able Elevated dehydroepiandrosterone (DHEA) level 05/202003/01/2022 Facet arthropathy, lumbar 05/17/20162021 Chronic midline low back pain without sciatica 1 03/01/2022 Low back pain 09/14/2015 05/17/2016 Chronic pain 09/14/2015 05/17/2016 Neurodermatitis 04/22/2013 06/23/2021 Eczematous dermatitis 04/22/2013 06/23/2021 Pyoderma, unspecified 04/22/2013 09/16/2019 Impetigo 04/22/2013 09/16/2019 Pruritus 04/22/2013 09/16/2019 Excoriation 04/22/2013 09/16/2019 Prurigo papule 04/22/2013 03/01/2022 Lichenification and lichen simplex chronicus 06/23/2021 Xerosis cutis 04/22/2013 09/16/2019 Duodenitis 09/14/2011 06/23/2021 Acute gastritis without mention of hemorrhage 06/23/2021 Tobacco use disorder 04/11/2007 03/01/2022 Cough 05/30/2006 09/16/2019 Other acne 04/08/2005 09/16/2019 Other specified endocrine disorders 04/08/2005 09/16/2019 documented as of this encounter (statuses as of 07/06/2022) [facility] of Past illness Narrative* Problem Noted Date Resolved Date Suicidal ideation 03/03/2022 07/04/2022 Hypomagnesemia 02/24/2022 03/01/2022 Last Assessment & Plan: Assessment: Hypomagnesemia Plan:Electrolyte replacement prn to keep Mg>2 Acute postoperative pain 02/23/2022 022 Last Assessment & Plan: Assessment: Acute post-operative pain, ? Post surgical radiculopathy : Surgical team aware. 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 Pt has an appt 02/14/2022 with vascular for pre-op clearance/follow up. Post-operative state 01/07/2022 03/01/2022 Last Assessment & Plan: Assessment: s/p TILF Decompression Laminectomy PLAN: - DVT prophylaxis per Surgery - IS Q1hr - OOB ambulate when able Elevated dehydroepiandrosterone (DHEA) level 05/202003/01/2022 Facet arthropathy, lumbar 05/17/20162021 Chronic midline low back pain without sciatica 1 03/01/2022 Low back pain 09/14/2015 05/17/2016 Chronic pain 09/14/2015 05/17/2016 Neurodermatitis 04/22/2013 06/23/2021 Eczematous dermatitis 04/22/2013 06/23/2021 Pyoderma, unspecified 04/22/2013 09/16/2019 Impetigo 04/22/2013 09/16/2019 Pruritus 04/22/2013 09/16/2019 Excoriation 04/22/2013 09/16/2019 Prurigo papule 04/22/2013 03/01/2022 Lichenification and lichen simplex chronicus 06/23/2021 Xerosis cutis 04/22/2013 09/16/2019 Duodenitis 09/14/2011 06/23/2021 Acute gastritis without mention of hemorrhage 06/23/2021 Tobacco use disorder 04/11/2007 03/01/2022 Cough 05/30/2006 09/16/2019 Other acne 04/08/2005 09/16/2019 Other specified endocrine disorders 04/08/2005 09/16/2019 documented as of this encounter (statuses as of 07/07/2022) [facility]07-28-[facility]22 History of Past illness Narrative* Problem Noted Date Resolved Date Suicidal ideation 03/03/2022 07/04/2022 Hypomagnesemia 02/24/2022 03/01/2022 Last Assessment & Plan: Assessment: Hypomagnesemia Plan:Electrolyte replacement prn to keep Mg>2 Acute postoperative pain 02/23/2022 022 Last Assessment & Plan: Assessment: Acute post-operative pain, ? Post surgical radiculopathy : Surgical team aware. 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 Pt has an appt 02/14/2022 with vascular for pre-op clearance/follow up. Post-operative state 01/07/2022 03/01/2022 Last Assessment & Plan: Assessment: s/p TILF Decompression Laminectomy PLAN: - DVT prophylaxis per Surgery - IS Q1hr - OOB ambulate when able Elevated dehydroepiandrosterone (DHEA) level 05/202003/01/2022 Facet arthropathy, lumbar 05/17/20162021 Chronic midline low back pain without sciatica 1 03/01/2022 Low back pain 09/14/2015 05/17/2016 Chronic pain 09/14/2015 05/17/2016 Neurodermatitis 04/22/2013 06/23/2021 Eczematous dermatitis 04/22/2013 06/23/2021 Pyoderma, unspecified 04/22/2013 09/16/2019 Impetigo 04/22/2013 09/16/2019 Pruritus 04/22/2013 09/16/2019 Excoriation 04/22/2013 09/16/2019 Prurigo papule 04/22/2013 03/01/2022 Lichenification and lichen simplex chronicus 06/23/2021 Xerosis cutis 04/22/2013 09/16/2019 Duodenitis 09/14/2011 06/23/2021 Acute gastritis without mention of hemorrhage 06/23/2021 Tobacco use disorder 04/11/2007 03/01/2022 Cough 05/30/2006 09/16/2019 Other acne 04/08/2005 09/16/2019 Other specified endocrine disorders 04/08/2005 09/16/2019 documented as of this encounter (statuses as of 07/08/2022) [facility]22 History of Past illness Narrative* Problem Noted Date Resolved Date Suicidal ideation 03/03/2022 07/04/2022 Hypomagnesemia 02/24/2022 03/01/2022 Last Assessment & Plan: Assessment: Hypomagnesemia Plan:Electrolyte replacement prn to keep Mg>2 Acute postoperative pain 02/23/2022 022 Last Assessment & Plan: Assessment: Acute post-operative pain, ? Post surgical radiculopathy : Surgical team aware. 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 Pt has an appt 02/14/2022 with vascular for pre-op clearance/follow up. Post-operative state 01/07/2022 03/01/2022 Last Assessment & Plan: Assessment: s/p TILF Decompression Laminectomy PLAN: - DVT prophylaxis per Surgery - IS Q1hr - OOB ambulate when able Elevated dehydroepiandrosterone (DHEA) level 05/202003/01/2022 Facet arthropathy, lumbar 05/17/20162021 Chronic midline low back pain without sciatica 1 03/01/2022 Low back pain 09/14/2015 05/17/2016 Chronic pain 09/14/2015 05/17/2016 Neurodermatitis 04/22/2013 06/23/2021 Eczematous dermatitis 04/22/2013 06/23/2021 Pyoderma, unspecified 04/22/2013 09/16/2019 Impetigo 04/22/2013 09/16/2019 Pruritus 04/22/2013 09/16/2019 Excoriation 04/22/2013 09/16/2019 Prurigo papule 04/22/2013 03/01/2022 Lichenification and lichen simplex chronicus 06/23/2021 Xerosis cutis 04/22/2013 09/16/2019 Duodenitis 09/14/2011 06/23/2021 Acute gastritis without mention of hemorrhage 06/23/2021 Tobacco use disorder 04/11/2007 03/01/2022 Cough 05/30/2006 09/16/2019 Other acne 04/08/2005 09/16/2019 Other specified endocrine disorders 04/08/2005 09/16/2019 documented as of this encounter (statuses as of 07/14/2022) [facility] History of Past illness Narrative* Problem Noted Date Resolved Date Suicidal ideation 03/03/2022 07/04/2022 Hypomagnesemia 02/24/2022 03/01/2022 Last Assessment & Plan: Assessment: Hypomagnesemia Plan:Electrolyte replacement prn to keep Mg>2 Acute postoperative pain 02/23/2022 022 Last Assessment & Plan: Assessment: Acute post-operative pain, ? Post surgical radiculopathy : Surgical team aware. 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 Pt has an appt 02/14/2022 with vascular for pre-op clearance/follow up. Post-operative state 01/07/2022 03/01/2022 Last Assessment & Plan: Assessment: s/p TILF Decompression Laminectomy PLAN: - DVT prophylaxis per Surgery - IS Q1hr - OOB ambulate when able Elevated dehydroepiandrosterone (DHEA) level 05/202003/01/2022 Facet arthropathy, lumbar 05/17/20162021 Chronic midline low back pain without sciatica 1 03/01/2022 Low back pain 09/14/2015 05/17/2016 Chronic pain 09/14/2015 05/17/2016 Neurodermatitis 04/22/2013 06/23/2021 Eczematous dermatitis 04/22/2013 06/23/2021 Pyoderma, unspecified 04/22/2013 09/16/2019 Impetigo 04/22/2013 09/16/2019 Pruritus 04/22/2013 09/16/2019 Excoriation 04/22/2013 09/16/2019 Prurigo papule 04/22/2013 03/01/2022 Lichenification and lichen simplex chronicus 06/23/2021 Xerosis cutis 04/22/2013 09/16/2019 Duodenitis 09/14/2011 06/23/2021 Acute gastritis without mention of hemorrhage 06/23/2021 Tobacco use disorder 04/11/2007 03/01/2022 Cough 05/30/2006 09/16/2019 Other acne 04/08/2005 09/16/2019 Other specified endocrine disorders 04/08/2005 09/16/2019 documented as of this encounter (statuses as of 07/18/2022) [facility] History of Past illness Narrative* Problem Noted Date Resolved Date Suicidal ideation 03/03/2022 07/04/2022 Hypomagnesemia 02/24/2022 03/01/2022 Last Assessment & Plan: Assessment: Hypomagnesemia Plan:Electrolyte replacement prn to keep Mg>2 Acute postoperative pain 02/23/2022 022 Last Assessment & Plan: Assessment: Acute post-operative pain, ? Post surgical radiculopathy : Surgical team aware. 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 Pt has an appt 02/14/2022 with vascular for pre-op clearance/follow up. Post-operative state 01/07/2022 03/01/2022 Last Assessment & Plan: Assessment: s/p TILF Decompression Laminectomy PLAN: - DVT prophylaxis per Surgery - IS Q1hr - OOB ambulate when able Elevated dehydroepiandrosterone (DHEA) level 05/202003/01/2022 Facet arthropathy, lumbar 05/17/20162021 Chronic midline low back pain without sciatica 1 03/01/2022 Low back pain 09/14/2015 05/17/2016 Chronic pain 09/14/2015 05/17/2016 Neurodermatitis 04/22/2013 06/23/2021 Eczematous dermatitis 04/22/2013 06/23/2021 Pyoderma, unspecified 04/22/2013 09/16/2019 Impetigo 04/22/2013 09/16/2019 Pruritus 04/22/2013 09/16/2019 Excoriation 04/22/2013 09/16/2019 Prurigo papule 04/22/2013 03/01/2022 Lichenification and lichen simplex chronicus 06/23/2021 Xerosis cutis 04/22/2013 09/16/2019 Duodenitis 09/14/2011 06/23/2021 Acute gastritis without mention of hemorrhage 06/23/2021 Tobacco use disorder 04/11/2007 03/01/2022 Cough 05/30/2006 09/16/2019 Other acne 04/08/2005 09/16/2019 Other specified endocrine disorders 04/08/2005 09/16/2019 documented as of this encounter (statuses as of 07/18/2022) [facility] History of Past illness Narrative* Problem Noted Date Resolved Date Suicidal ideation 03/03/2022 07/04/2022 Hypomagnesemia 02/24/2022 03/01/2022 Last Assessment & Plan: Assessment: Hypomagnesemia Plan:Electrolyte replacement prn to keep Mg>2 Acute postoperative pain 02/23/2022 022 Last Assessment & Plan: Assessment: Acute post-operative pain, ? Post surgical radiculopathy : Surgical team aware. 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 Pt has an appt 02/14/2022 with vascular for pre-op clearance/follow up. Post-operative state 01/07/2022 03/01/2022 Last Assessment & Plan: Assessment: s/p TILF Decompression Laminectomy PLAN: - DVT prophylaxis per Surgery - IS Q1hr - OOB ambulate when able Elevated dehydroepiandrosterone (DHEA) level 05/202003/01/2022 Facet arthropathy, lumbar 05/17/20162021 Chronic midline low back pain without sciatica 1 03/01/2022 Low back pain 09/14/2015 05/17/2016 Chronic pain 09/14/2015 05/17/2016 Neurodermatitis 04/22/2013 06/23/2021 Eczematous dermatitis 04/22/2013 06/23/2021 Pyoderma, unspecified 04/22/2013 09/16/2019 Impetigo 04/22/2013 09/16/2019 Pruritus 04/22/2013 09/16/2019 Excoriation 04/22/2013 09/16/2019 Prurigo papule 04/22/2013 03/01/2022 Lichenification and lichen simplex chronicus 06/23/2021 Xerosis cutis 04/22/2013 09/16/2019 Duodenitis 09/14/2011 06/23/2021 Acute gastritis without mention of hemorrhage 06/23/2021 Tobacco use disorder 04/11/2007 03/01/2022 Cough 05/30/2006 09/16/2019 Other acne 04/08/2005 09/16/2019 Other specified endocrine disorders 04/08/2005 09/16/2019 documented as of this encounter (statuses as of 07/21/2022) [facility] History of Past illness Narrative* Problem Noted Date Resolved Date Suicidal ideation 03/03/2022 07/04/2022 Hypomagnesemia 02/24/2022 03/01/2022 Last Assessment & Plan: Assessment: Hypomagnesemia Plan:Electrolyte replacement prn to keep Mg>2 Acute postoperative pain 02/23/2022 022 Last Assessment & Plan: Assessment: Acute post-operative pain, ? Post surgical radiculopathy : Surgical team aware. 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 Pt has an appt 02/14/2022 with vascular for pre-op clearance/follow up. Post-operative state 01/07/2022 03/01/2022 Last Assessment & Plan: Assessment: s/p TILF Decompression Laminectomy PLAN: - DVT prophylaxis per Surgery - IS Q1hr - OOB ambulate when able Elevated dehydroepiandrosterone (DHEA) level 05/202003/01/2022 Facet arthropathy, lumbar 05/17/20162021 Chronic midline low back pain without sciatica 1 03/01/2022 Low back pain 09/14/2015 05/17/2016 Chronic pain 09/14/2015 05/17/2016 Neurodermatitis 04/22/2013 06/23/2021 Eczematous dermatitis 04/22/2013 06/23/2021 Pyoderma, unspecified 04/22/2013 09/16/2019 Impetigo 04/22/2013 09/16/2019 Pruritus 04/22/2013 09/16/2019 Excoriation 04/22/2013 09/16/2019 Prurigo papule 04/22/2013 03/01/2022 Lichenification and lichen simplex chronicus 06/23/2021 Xerosis cutis 04/22/2013 09/16/2019 Duodenitis 09/14/2011 06/23/2021 Acute gastritis without mention of hemorrhage 06/23/2021 Tobacco use disorder 04/11/2007 03/01/2022 Cough 05/30/2006 09/16/2019 Other acne 04/08/2005 09/16/2019 Other specified endocrine disorders 04/08/2005 09/16/2019 documented as of this encounter (statuses as of 09/12/2022) [facility] History of Past illness Narrative* Problem Noted Date Resolved Date Suicidal ideation 03/03/2022 07/04/2022 Hypomagnesemia 02/24/2022 03/01/2022 Last Assessment & Plan: Assessment: Hypomagnesemia Plan:Electrolyte replacement prn to keep Mg>2 Acute postoperative pain 02/23/2022 022 Last Assessment & Plan: Assessment: Acute post-operative pain, ? Post surgical radiculopathy : Surgical team aware. 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 Pt has an appt 02/14/2022 with vascular for pre-op clearance/follow up. Post-operative state 01/07/2022 03/01/2022 Last Assessment & Plan: Assessment: s/p TILF Decompression Laminectomy PLAN: - DVT prophylaxis per Surgery - IS Q1hr - OOB ambulate when able Elevated dehydroepiandrosterone (DHEA) level 05/202003/01/2022 Facet arthropathy, lumbar 05/17/20162021 Chronic midline low back pain without sciatica 1 03/01/2022 Low back pain 09/14/2015 05/17/2016 Chronic pain 09/14/2015 05/17/2016 Neurodermatitis 04/22/2013 06/23/2021 Eczematous dermatitis 04/22/2013 06/23/2021 Pyoderma, unspecified 04/22/2013 09/16/2019 Impetigo 04/22/2013 09/16/2019 Pruritus 04/22/2013 09/16/2019 Excoriation 04/22/2013 09/16/2019 Prurigo papule 04/22/2013 03/01/2022 Lichenification and lichen simplex chronicus 06/23/2021 Xerosis cutis 04/22/2013 09/16/2019 Duodenitis 09/14/2011 06/23/2021 Acute gastritis without mention of hemorrhage 06/23/2021 Tobacco use disorder 04/11/2007 03/01/2022 Cough 05/30/2006 09/16/2019 Other acne 04/08/2005 09/16/2019 Other specified endocrine disorders 04/08/2005 09/16/2019 documented as of this encounter (statuses as of 09/18/2022) [facility] History of Past illness Narrative* Problem Noted Date Resolved Date Suicidal ideation 03/03/2022 07/04/2022 Hypomagnesemia 02/24/2022 03/01/2022 Last Assessment & Plan: Assessment: Hypomagnesemia Plan:Electrolyte replacement prn to keep Mg>2 Acute postoperative pain 02/23/2022 022 Last Assessment & Plan: Assessment: Acute post-operative pain, ? Post surgical radiculopathy : Surgical team aware. 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 Pt has an appt 02/14/2022 with vascular for pre-op clearance/follow up. Post-operative state 01/07/2022 03/01/2022 Last Assessment & Plan: Assessment: s/p TILF Decompression Laminectomy PLAN: - DVT prophylaxis per Surgery - IS Q1hr - OOB ambulate when able Elevated dehydroepiandrosterone (DHEA) level 05/202003/01/2022 Facet arthropathy, lumbar 05/17/20162021 Chronic midline low back pain without sciatica 1 03/01/2022 Low back pain 09/14/2015 05/17/2016 Chronic pain 09/14/2015 05/17/2016 Neurodermatitis 04/22/2013 06/23/2021 Eczematous dermatitis 04/22/2013 06/23/2021 Pyoderma, unspecified 04/22/2013 09/16/2019 Impetigo 04/22/2013 09/16/2019 Pruritus 04/22/2013 09/16/2019 Excoriation 04/22/2013 09/16/2019 Prurigo papule 04/22/2013 03/01/2022 Lichenification and lichen simplex chronicus 06/23/2021 Xerosis cutis 04/22/2013 09/16/2019 Duodenitis 09/14/2011 06/23/2021 Acute gastritis without mention of hemorrhage 06/23/2021 Tobacco use disorder 04/11/2007 03/01/2022 Cough 05/30/2006 09/16/2019 Other acne 04/08/2005 09/16/2019 Other specified endocrine disorders 04/08/2005 09/16/2019 documented as of this encounter (statuses as of 09/19/2022) [facility] History of Past illness Narrative* Problem Noted Date Resolved Date Suicidal ideation 03/03/2022 07/04/2022 Hypomagnesemia 02/24/2022 03/01/2022 Last Assessment & Plan: Assessment: Hypomagnesemia Plan:Electrolyte replacement prn to keep Mg>2 Acute postoperative pain 02/23/2022 022 Last Assessment & Plan: Assessment: Acute post-operative pain, ? Post surgical radiculopathy : Surgical team aware. 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 Pt has an appt 02/14/2022 with vascular for pre-op clearance/follow up. Post-operative state 01/07/2022 03/01/2022 Last Assessment & Plan: Assessment: s/p TILF Decompression Laminectomy PLAN: - DVT prophylaxis per Surgery - IS Q1hr - OOB ambulate when able Elevated dehydroepiandrosterone (DHEA) level 05/202003/01/2022 Facet arthropathy, lumbar 05/17/20162021 Chronic midline low back pain without sciatica 1 03/01/2022 Low back pain 09/14/2015 05/17/2016 Chronic pain 09/14/2015 05/17/2016 Neurodermatitis 04/22/2013 06/23/2021 Eczematous dermatitis 04/22/2013 06/23/2021 Pyoderma, unspecified 04/22/2013 09/16/2019 Impetigo 04/22/2013 09/16/2019 Pruritus 04/22/2013 09/16/2019 Excoriation 04/22/2013 09/16/2019 Prurigo papule 04/22/2013 03/01/2022 Lichenification and lichen simplex chronicus 06/23/2021 Xerosis cutis 04/22/2013 09/16/2019 Duodenitis 09/14/2011 06/23/2021 Acute gastritis without mention of hemorrhage 06/23/2021 Tobacco use disorder 04/11/2007 03/01/2022 Cough 05/30/2006 09/16/2019 Other acne 04/08/2005 09/16/2019 Other specified endocrine disorders 04/08/2005 09/16/2019 documented as of this encounter (statuses as of 10/15/2022) [facility] History of Past illness Narrative* Problem Noted Date Resolved Date Suicidal ideation 03/03/2022 07/04/2022 Hypomagnesemia 02/24/2022 03/01/2022 Last Assessment & Plan: Assessment: Hypomagnesemia Plan:Electrolyte replacement prn to keep Mg>2 Acute postoperative pain 02/23/2022 022 Last Assessment & Plan: Assessment: Acute post-operative pain, ? Post surgical radiculopathy : Surgical team aware. 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 Pt has an appt 02/14/2022 with vascular for pre-op clearance/follow up. Post-operative state 01/07/2022 03/01/2022 Last Assessment & Plan: Assessment: s/p TILF Decompression Laminectomy PLAN: - DVT prophylaxis per Surgery - IS Q1hr - OOB ambulate when able Elevated dehydroepiandrosterone (DHEA) level 05/202003/01/2022 Facet arthropathy, lumbar 05/17/20162021 Chronic midline low back pain without sciatica 1 03/01/2022 Low back pain 09/14/2015 05/17/2016 Chronic pain 09/14/2015 05/17/2016 Neurodermatitis 04/22/2013 06/23/2021 Eczematous dermatitis 04/22/2013 06/23/2021 Pyoderma, unspecified 04/22/2013 09/16/2019 Impetigo 04/22/2013 09/16/2019 Pruritus 04/22/2013 09/16/2019 Excoriation 04/22/2013 09/16/2019 Prurigo papule 04/22/2013 03/01/2022 Lichenification and lichen simplex chronicus 06/23/2021 Xerosis cutis 04/22/2013 09/16/2019 Duodenitis 09/14/2011 06/23/2021 Acute gastritis without mention of hemorrhage 06/23/2021 Tobacco use disorder 04/11/2007 03/01/2022 Cough 05/30/2006 09/16/2019 Other acne 04/08/2005 09/16/2019 Other specified endocrine disorders 04/08/2005 09/16/2019 documented as of this encounter (statuses as of 11/04/2022) [facility] History of Past illness Narrative* Problem Noted Date Resolved Date Suicidal ideation 03/03/2022 07/04/2022 Hypomagnesemia 02/24/2022 03/01/2022 Last Assessment & Plan: Assessment: Hypomagnesemia Plan:Electrolyte replacement prn to keep Mg>2 Acute postoperative pain 02/23/2022 022 Last Assessment & Plan: Assessment: Acute post-operative pain, ? Post surgical radiculopathy : Surgical team aware. 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 Pt has an appt 02/14/2022 with vascular for pre-op clearance/follow up. Post-operative state 01/07/2022 03/01/2022 Last Assessment & Plan: Assessment: s/p TILF Decompression Laminectomy PLAN: - DVT prophylaxis per Surgery - IS Q1hr - OOB ambulate when able Elevated dehydroepiandrosterone (DHEA) level 05/202003/01/2022 Facet arthropathy, lumbar 05/17/20162021 Chronic midline low back pain without sciatica 1 03/01/2022 Low back pain 09/14/2015 05/17/2016 Chronic pain 09/14/2015 05/17/2016 Neurodermatitis 04/22/2013 06/23/2021 Eczematous dermatitis 04/22/2013 06/23/2021 Pyoderma, unspecified 04/22/2013 09/16/2019 Impetigo 04/22/2013 09/16/2019 Pruritus 04/22/2013 09/16/2019 Excoriation 04/22/2013 09/16/2019 Prurigo papule 04/22/2013 03/01/2022 Lichenification and lichen simplex chronicus 06/23/2021 Xerosis cutis 04/22/2013 09/16/2019 Duodenitis 09/14/2011 06/23/2021 Acute gastritis without mention of hemorrhage 06/23/2021 Tobacco use disorder 04/11/2007 03/01/2022 Cough 05/30/2006 09/16/2019 Other acne 04/08/2005 09/16/2019 Other specified endocrine disorders 04/08/2005 09/16/2019 documented as of this encounter (statuses as of 11/07/2022) [facility] History of Past illness Narrative* Problem Noted Date Resolved Date Suicidal ideation 03/03/2022 07/04/2022 Hypomagnesemia 02/24/2022 03/01/2022 Last Assessment & Plan: Assessment: Hypomagnesemia Plan:Electrolyte replacement prn to keep Mg>2 Acute postoperative pain 02/23/2022 022 Last Assessment & Plan: Assessment: Acute post-operative pain, ? Post surgical radiculopathy : Surgical team aware. 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 Pt has an appt 02/14/2022 with vascular for pre-op clearance/follow up. Post-operative state 01/07/2022 03/01/2022 Last Assessment & Plan: Assessment: s/p TILF Decompression Laminectomy PLAN: - DVT prophylaxis per Surgery - IS Q1hr - OOB ambulate when able Elevated dehydroepiandrosterone (DHEA) level 05/202003/01/2022 Facet arthropathy, lumbar 05/17/20162021 Chronic midline low back pain without sciatica 1 03/01/2022 Low back pain 09/14/2015 05/17/2016 Chronic pain 09/14/2015 05/17/2016 Neurodermatitis 04/22/2013 06/23/2021 Eczematous dermatitis 04/22/2013 06/23/2021 Pyoderma, unspecified 04/22/2013 09/16/2019 Impetigo 04/22/2013 09/16/2019 Pruritus 04/22/2013 09/16/2019 Excoriation 04/22/2013 09/16/2019 Prurigo papule 04/22/2013 03/01/2022 Lichenification and lichen simplex chronicus 06/23/2021 Xerosis cutis 04/22/2013 09/16/2019 Duodenitis 09/14/2011 06/23/2021 Acute gastritis without mention of hemorrhage 06/23/2021 Cough 05/30/2006 09/16/2019 Other acne 04/08/2005 09/16/2019 Other specified endocrine disorders 04/08/2005 09/16/2019 documented as of this encounter (statuses as of 02/09/2023) [facility]07-28-2022 History of Past illness Narrative* Problem Noted Date Diagnosed Date Resolved Date Suicidal ideation 03/03/2022 07/04/2022 Hypomagnesemia 02/24/2022 03/01/2022 Last Assessment & Plan: Assessment: Hypomagnesemia Plan:Electrolyte replacement prn to keep Mg>2 Acute postoperative pain 02/23/2022 Last Assessment & Plan: Assessment: Acute post-operative pain, ? Post surgical radiculopathy : Surgical team aware. 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 Pt has an appt 02/14/2022 with vascular for pre-op clearance/follow up. Post-operative state 01/07/2022 022 Last Assessment & Plan: Assessment: s/p TILF Decompression Laminectomy PLAN: - DVT prophylaxis per Surgery - IS Q1hr - OOB ambulate when able Elevated dehydroepiandrosterone (DHEA) level 0 03/01/2022 Facet arthropathy, lumbar 05/17/2016 Chronic midline low back zully n without sciatica 05/17/2016 03/01/2022 Low back pain 09/14/2015 05/17/2016 Chronic pain 09/14/2015 05/17/2016 Neurodermatitis 04/22/2013 06/23/2021 Eczematous dermatitis 04/22/20132020 Pyoderma, unspecified 04/22/20132019 Impetigo 04/22/2013 09/16/2019 Pruritus 04/22/2013 09/16/2019 Excoriation 04/22/2013 09/16/2019 Prurigo papule 04/22/2013 03/01/2022 Lichenification and lichen simplex chronicus 3 06/23/2021 Xerosis cutis 04/22/2013 09/16/2019 Duodenitis 09/14/2011 06/23/2021 Acute gastritis without mention of hemorrhage 09/14/19 12 06/23/2021 Cough 05/30/2006 09/16/2019 Other acne 04/08/2005 09/16/2019 Other specified endocrine disorders 04/08/2005 09/16/2019 documented as of this encounter (statuses as of 02/13/2023) [facility]22 History of Past illness Narrative* Problem Noted Date Diagnosed Date Resolved Date Suicidal ideation 03/03/2022 07/04/2022 Hypomagnesemia 02/24/2022 03/01/2022 Last Assessment & Plan: Assessment: Hypomagnesemia Plan:Electrolyte replacement prn to keep Mg>2 Acute postoperative pain 02/23/2022 Last Assessment & Plan: Assessment: Acute post-operative pain, ? Post surgical radiculopathy : Surgical team aware. 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 Pt has an appt 02/14/2022 with vascular for pre-op clearance/follow up. Post-operative state 01/07/2022 022 Last Assessment & Plan: Assessment: s/p TILF Decompression Laminectomy PLAN: - DVT prophylaxis per Surgery - IS Q1hr - OOB ambulate when able Elevated dehydroepiandrosterone (DHEA) level 0 03/01/2022 Facet arthropathy, lumbar 05/17/2016 Chronic midline low back zully n without sciatica 05/17/2016 03/01/2022 Low back pain 09/14/2015 05/17/2016 Chronic pain 09/14/2015 05/17/2016 Neurodermatitis 04/22/2013 06/23/2021 Eczematous dermatitis 04/22/20132020 Pyoderma, unspecified 04/22/20132019 Impetigo 04/22/2013 09/16/2019 Pruritus 04/22/2013 09/16/2019 Excoriation 04/22/2013 09/16/2019 Prurigo papule 04/22/2013 03/01/2022 Lichenification and lichen simplex chronicus 3 06/23/2021 Xerosis cutis 04/22/2013 09/16/2019 Duodenitis 09/14/2011 06/23/2021 Acute gastritis without mention of hemorrhage 09/14/19 12 06/23/2021 Cough 05/30/2006 09/16/2019 Other acne 04/08/2005 09/16/2019 Other specified endocrine disorders 04/08/2005 09/16/2019 documented as of this encounter (statuses as of 03/01/2023) [facility]22 History of Past illness Narrative* Problem Noted Date Diagnosed Date Resolved Date Suicidal ideation 03/03/2022 07/04/2022 Hypomagnesemia 02/24/2022 03/01/2022 Last Assessment & Plan: Assessment: Hypomagnesemia Plan:Electrolyte replacement prn to keep Mg>2 Acute postoperative pain 02/23/2022 Last Assessment & Plan: Assessment: Acute post-operative pain, ? Post surgical radiculopathy : Surgical team aware. 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 Pt has an appt 02/14/2022 with vascular for pre-op clearance/follow up. Post-operative state 01/07/2022 022 Last Assessment & Plan: Assessment: s/p TILF Decompression Laminectomy PLAN: - DVT prophylaxis per Surgery - IS Q1hr - OOB ambulate when able Elevated dehydroepiandrosterone (DHEA) level 0 03/01/2022 Facet arthropathy, lumbar 05/17/2016 Chronic midline low back zully n without sciatica 05/17/2016 03/01/2022 Low back pain 09/14/2015 05/17/2016 Chronic pain 09/14/2015 05/17/2016 Neurodermatitis 04/22/2013 06/23/2021 Eczematous dermatitis 04/22/20132020 Pyoderma, unspecified 04/22/20132019 Impetigo 04/22/2013 09/16/2019 Pruritus 04/22/2013 09/16/2019 Excoriation 04/22/2013 09/16/2019 Prurigo papule 04/22/2013 03/01/2022 Lichenification and lichen simplex chronicus 3 06/23/2021 Xerosis cutis 04/22/2013 09/16/2019 Duodenitis 09/14/2011 06/23/2021 Acute gastritis without mention of hemorrhage 09/14/19 12 06/23/2021 Cough 05/30/2006 09/16/2019 Other acne 04/08/2005 09/16/2019 Other specified endocrine disorders 04/08/2005 09/16/2019 documented as of this encounter (statuses as of 03/07/2023) [facility] History of Past illness Narrative* Problem Noted Date Diagnosed Date Resolved Date Suicidal ideation 03/03/2022 07/04/2022 Hypomagnesemia 02/24/2022 03/01/2022 Last Assessment & Plan: Assessment: Hypomagnesemia Plan:Electrolyte replacement prn to keep Mg>2 Acute postoperative pain 02/23/2022 Last Assessment & Plan: Assessment: Acute post-operative pain, ? Post surgical radiculopathy : Surgical team aware. 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 Pt has an appt 02/14/2022 with vascular for pre-op clearance/follow up. Post-operative state 01/07/2022 022 Last Assessment & Plan: Assessment: s/p TILF Decompression Laminectomy PLAN: - DVT prophylaxis per Surgery - IS Q1hr - OOB ambulate when able Elevated dehydroepiandrosterone (DHEA) level 0 03/01/2022 Facet arthropathy, lumbar 05/17/2016 Chronic midline low back zully n without sciatica 05/17/2016 03/01/2022 Low back pain 09/14/2015 05/17/2016 Chronic pain 09/14/2015 05/17/2016 Neurodermatitis 04/22/2013 06/23/2021 Eczematous dermatitis 04/22/20132020 Pyoderma, unspecified 04/22/20132019 Impetigo 04/22/2013 09/16/2019 Pruritus 04/22/2013 09/16/2019 Excoriation 04/22/2013 09/16/2019 Prurigo papule 04/22/2013 03/01/2022 Lichenification and lichen simplex chronicus 3 06/23/2021 Xerosis cutis 04/22/2013 09/16/2019 Duodenitis 09/14/2011 06/23/2021 Acute gastritis without mention of hemorrhage 09/14/19 12 06/23/2021 Cough 05/30/2006 09/16/2019 Other acne 04/08/2005 09/16/2019 Other specified endocrine disorders 04/08/2005 09/16/2019 documented as of this encounter (statuses as of 03/09/2023) [facility] History of Past illness Narrative* Problem Noted Date Diagnosed Date Resolved Date Suicidal ideation 03/03/2022 07/04/2022 Hypomagnesemia 02/24/2022 03/01/2022 Last Assessment & Plan: Assessment: Hypomagnesemia Plan:Electrolyte replacement prn to keep Mg>2 Acute postoperative pain 02/23/2022 Last Assessment & Plan: Assessment: Acute post-operative pain, ? Post surgical radiculopathy : Surgical team aware. 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 Pt has an appt 02/14/2022 with vascular for pre-op clearance/follow up. Post-operative state 01/07/2022 022 Last Assessment & Plan: Assessment: s/p TILF Decompression Laminectomy PLAN: - DVT prophylaxis per Surgery - IS Q1hr - OOB ambulate when able Elevated dehydroepiandrosterone (DHEA) level 0 03/01/2022 Facet arthropathy, lumbar 05/17/2016 Chronic midline low back zully n without sciatica 05/17/2016 03/01/2022 Low back pain 09/14/2015 05/17/2016 Chronic pain 09/14/2015 05/17/2016 Neurodermatitis 04/22/2013 06/23/2021 Eczematous dermatitis 04/22/20132020 Pyoderma, unspecified 04/22/20132019 Impetigo 04/22/2013 09/16/2019 Pruritus 04/22/2013 09/16/2019 Excoriation 04/22/2013 09/16/2019 Prurigo papule 04/22/2013 03/01/2022 Lichenification and lichen simplex chronicus 3 06/23/2021 Xerosis cutis 04/22/2013 09/16/2019 Duodenitis 09/14/2011 06/23/2021 Acute gastritis without mention of hemorrhage 09/14/19 12 06/23/2021 Cough 05/30/2006 09/16/2019 Other acne 04/08/2005 09/16/2019 Other specified endocrine disorders 04/08/2005 09/16/2019 documented as of this encounter (statuses as of 03/10/2023) [facility] History of Past illness Narrative* Problem Noted Date Diagnosed Date Resolved Date Suicidal ideation 03/03/2022 07/04/2022 Hypomagnesemia 02/24/2022 03/01/2022 Last Assessment & Plan: Assessment: Hypomagnesemia Plan:Electrolyte replacement prn to keep Mg>2 Acute postoperative pain 02/23/2022 Last Assessment & Plan: Assessment: Acute post-operative pain, ? Post surgical radiculopathy : Surgical team aware. 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 Pt has an appt 02/14/2022 with vascular for pre-op clearance/follow up. Post-operative state 01/07/2022 022 Last Assessment & Plan: Assessment: s/p TILF Decompression Laminectomy PLAN: - DVT prophylaxis per Surgery - IS Q1hr - OOB ambulate when able Elevated dehydroepiandrosterone (DHEA) level 0 03/01/2022 Facet arthropathy, lumbar 05/17/2016 Chronic midline low back zully n without sciatica 05/17/2016 03/01/2022 Low back pain 09/14/2015 05/17/2016 Chronic pain 09/14/2015 05/17/2016 Neurodermatitis 04/22/2013 06/23/2021 Eczematous dermatitis 04/22/20132020 Pyoderma, unspecified 04/22/20132019 Impetigo 04/22/2013 09/16/2019 Pruritus 04/22/2013 09/16/2019 Excoriation 04/22/2013 09/16/2019 Prurigo papule 04/22/2013 03/01/2022 Lichenification and lichen simplex chronicus 3 06/23/2021 Xerosis cutis 04/22/2013 09/16/2019 Duodenitis 09/14/2011 06/23/2021 Acute gastritis without mention of hemorrhage 09/14/19 12 06/23/2021 Cough 05/30/2006 09/16/2019 Other acne 04/08/2005 09/16/2019 Other specified endocrine disorders 04/08/2005 09/16/2019 documented as of this encounter (statuses as of 03/16/2023) [facility] History of Past illness Narrative* Problem Noted Date Diagnosed Date Resolved Date Suicidal ideation 03/03/2022 07/04/2022 Hypomagnesemia 02/24/2022 03/01/2022 Last Assessment & Plan: Assessment: Hypomagnesemia Plan:Electrolyte replacement prn to keep Mg>2 Acute postoperative pain 02/23/2022 Last Assessment & Plan: Assessment: Acute post-operative pain, ? Post surgical radiculopathy : Surgical team aware. 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 Pt has an appt 02/14/2022 with vascular for pre-op clearance/follow up. Post-operative state 01/07/2022 022 Last Assessment & Plan: Assessment: s/p TILF Decompression Laminectomy PLAN: - DVT prophylaxis per Surgery - IS Q1hr - OOB ambulate when able Elevated dehydroepiandrosterone (DHEA) level 0 03/01/2022 Facet arthropathy, lumbar 05/17/2016 Chronic midline low back zully n without sciatica 05/17/2016 03/01/2022 Low back pain 09/14/2015 05/17/2016 Chronic pain 09/14/2015 05/17/2016 Neurodermatitis 04/22/2013 06/23/2021 Eczematous dermatitis 04/22/20132020 Pyoderma, unspecified 04/22/20132019 Impetigo 04/22/2013 09/16/2019 Pruritus 04/22/2013 09/16/2019 Excoriation 04/22/2013 09/16/2019 Prurigo papule 04/22/2013 03/01/2022 Lichenification and lichen simplex chronicus 3 06/23/2021 Xerosis cutis 04/22/2013 09/16/2019 Duodenitis 09/14/2011 06/23/2021 Acute gastritis without mention of hemorrhage 09/14/19 12 06/23/2021 Cough 05/30/2006 09/16/2019 Other acne 04/08/2005 09/16/2019 Other specified endocrine disorders 04/08/2005 09/16/2019 documented as of this encounter (statuses as of 03/24/2023) [facility] History of Past illness Narrative* Problem Noted Date Diagnosed Date Resolved Date Suicidal ideation 03/03/2022 07/04/2022 Hypomagnesemia 02/24/2022 03/01/2022 Last Assessment & Plan: Assessment: Hypomagnesemia Plan:Electrolyte replacement prn to keep Mg>2 Acute postoperative pain 02/23/2022 Last Assessment & Plan: Assessment: Acute post-operative pain, ? Post surgical radiculopathy : Surgical team aware. 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 Pt has an appt 02/14/2022 with vascular for pre-op clearance/follow up. Post-operative state 01/07/2022 022 Last Assessment & Plan: Assessment: s/p TILF Decompression Laminectomy PLAN: - DVT prophylaxis per Surgery - IS Q1hr - OOB ambulate when able Elevated dehydroepiandrosterone (DHEA) level 0 03/01/2022 Facet arthropathy, lumbar 05/17/2016 Chronic midline low back zully n without sciatica 05/17/2016 03/01/2022 Low back pain 09/14/2015 05/17/2016 Chronic pain 09/14/2015 05/17/2016 Neurodermatitis 04/22/2013 06/23/2021 Eczematous dermatitis 04/22/20132020 Pyoderma, unspecified 04/22/20132019 Impetigo 04/22/2013 09/16/2019 Pruritus 04/22/2013 09/16/2019 Excoriation 04/22/2013 09/16/2019 Prurigo papule 04/22/2013 03/01/2022 Lichenification and lichen simplex chronicus 3 06/23/2021 Xerosis cutis 04/22/2013 09/16/2019 Duodenitis 09/14/2011 06/23/2021 Acute gastritis without mention of hemorrhage 09/14/19 12 06/23/2021 Cough 05/30/2006 09/16/2019 Other acne 04/08/2005 09/16/2019 Other specified endocrine disorders 04/08/2005 09/16/2019 documented as of this encounter (statuses as of 05/01/2023) [facility] History of Past illness Narrative* Problem Noted Date Diagnosed Date Resolved Date Suicidal ideation 03/03/2022 07/04/2022 Hypomagnesemia 02/24/2022 03/01/2022 Last Assessment & Plan: Assessment: Hypomagnesemia Plan:Electrolyte replacement prn to keep Mg>2 Acute postoperative pain 02/23/2022 Last Assessment & Plan: Assessment: Acute post-operative pain, ? Post surgical radiculopathy : Surgical team aware. 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 Pt has an appt 02/14/2022 with vascular for pre-op clearance/follow up. Post-operative state 01/07/2022 022 Last Assessment & Plan: Assessment: s/p TILF Decompression Laminectomy PLAN: - DVT prophylaxis per Surgery - IS Q1hr - OOB ambulate when able Elevated dehydroepiandrosterone (DHEA) level 0 03/01/2022 Facet arthropathy, lumbar 05/17/2016 Chronic midline low back zully n without sciatica 05/17/2016 03/01/2022 Low back pain 09/14/2015 05/17/2016 Chronic pain 09/14/2015 05/17/2016 Neurodermatitis 04/22/2013 06/23/2021 Eczematous dermatitis 04/22/20132020 Pyoderma, unspecified 04/22/20132019 Impetigo 04/22/2013 09/16/2019 Pruritus 04/22/2013 09/16/2019 Excoriation 04/22/2013 09/16/2019 Prurigo papule 04/22/2013 03/01/2022 Lichenification and lichen simplex chronicus 3 06/23/2021 Xerosis cutis 04/22/2013 09/16/2019 Duodenitis 09/14/2011 06/23/2021 Acute gastritis without mention of hemorrhage 09/14/19 12 06/23/2021 Cough 05/30/2006 09/16/2019 Other acne 04/08/2005 09/16/2019 Other specified endocrine disorders 04/08/2005 09/16/2019 documented as of this encounter (statuses as of 05/26/2023) [facility] History of Past illness Narrative* Problem Noted Date Diagnosed Date Resolved Date Suicidal ideation 03/03/2022 07/04/2022 Hypomagnesemia 02/24/2022 03/01/2022 Last Assessment & Plan: Assessment: Hypomagnesemia Plan:Electrolyte replacement prn to keep Mg>2 Acute postoperative pain 02/23/2022 Last Assessment & Plan: Assessment: Acute post-operative pain, ? Post surgical radiculopathy : Surgical team aware. 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 Pt has an appt 02/14/2022 with vascular for pre-op clearance/follow up. Post-operative state 01/07/2022 022 Last Assessment & Plan: Assessment: s/p TILF Decompression Laminectomy PLAN: - DVT prophylaxis per Surgery - IS Q1hr - OOB ambulate when able Elevated dehydroepiandrosterone (DHEA) level 0 03/01/2022 Facet arthropathy, lumbar 05/17/2016 Chronic midline low back zully n without sciatica 05/17/2016 03/01/2022 Low back pain 09/14/2015 05/17/2016 Chronic pain 09/14/2015 05/17/2016 Neurodermatitis 04/22/2013 06/23/2021 Eczematous dermatitis 04/22/20132020 Pyoderma, unspecified 04/22/20132019 Impetigo 04/22/2013 09/16/2019 Pruritus 04/22/2013 09/16/2019 Excoriation 04/22/2013 09/16/2019 Prurigo papule 04/22/2013 03/01/2022 Lichenification and lichen simplex chronicus 3 06/23/2021 Xerosis cutis 04/22/2013 09/16/2019 Duodenitis 09/14/2011 06/23/2021 Acute gastritis without mention of hemorrhage 09/14/19 12 06/23/2021 Cough 05/30/2006 09/16/2019 Other acne 04/08/2005 09/16/2019 Other specified endocrine disorders 04/08/2005 09/16/2019 documented as of this encounter (statuses as of 05/31/2023) [facility] History of Past illness Narrative* Problem Noted Date Diagnosed Date Resolved Date Suicidal ideation 03/03/2022 07/04/2022 Hypomagnesemia 02/24/2022 03/01/2022 Last Assessment & Plan: Assessment: Hypomagnesemia Plan:Electrolyte replacement prn to keep Mg>2 Acute postoperative pain 02/23/2022 Last Assessment & Plan: Assessment: Acute post-operative pain, ? Post surgical radiculopathy : Surgical team aware. 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 Pt has an appt 02/14/2022 with vascular for pre-op clearance/follow up. Post-operative state 01/07/2022 022 Last Assessment & Plan: Assessment: s/p TILF Decompression Laminectomy PLAN: - DVT prophylaxis per Surgery - IS Q1hr - OOB ambulate when able Elevated dehydroepiandrosterone (DHEA) level 0 03/01/2022 Facet arthropathy, lumbar 05/17/2016 Chronic midline low back zully n without sciatica 05/17/2016 03/01/2022 Low back pain 09/14/2015 05/17/2016 Chronic pain 09/14/2015 05/17/2016 Neurodermatitis 04/22/2013 06/23/2021 Eczematous dermatitis 04/22/20132020 Pyoderma, unspecified 04/22/20132019 Impetigo 04/22/2013 09/16/2019 Pruritus 04/22/2013 09/16/2019 Excoriation 04/22/2013 09/16/2019 Prurigo papule 04/22/2013 03/01/2022 Lichenification and lichen simplex chronicus 3 06/23/2021 Xerosis cutis 04/22/2013 09/16/2019 Duodenitis 09/14/2011 06/23/2021 Acute gastritis without mention of hemorrhage 09/14/19 12 06/23/2021 Cough 05/30/2006 09/16/2019 Other acne 04/08/2005 09/16/2019 Other specified endocrine disorders 04/08/2005 09/16/2019 documented as of this encounter (statuses as of 06/10/2023) [facility] History of Past illness Narrative* Problem Noted Date Diagnosed Date Resolved Date Suicidal ideation 03/03/2022 07/04/2022 Hypomagnesemia 02/24/2022 03/01/2022 Last Assessment & Plan: Assessment: Hypomagnesemia Plan:Electrolyte replacement prn to keep Mg>2 Acute postoperative pain 02/23/2022 Last Assessment & Plan: Assessment: Acute post-operative pain, ? Post surgical radiculopathy : Surgical team aware. 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 Pt has an appt 02/14/2022 with vascular for pre-op clearance/follow up. Post-operative state 01/07/2022 022 Last Assessment & Plan: Assessment: s/p TILF Decompression Laminectomy PLAN: - DVT prophylaxis per Surgery - IS Q1hr - OOB ambulate when able Elevated dehydroepiandrosterone (DHEA) level 0 03/01/2022 Facet arthropathy, lumbar 05/17/2016 Chronic midline low back zully n without sciatica 05/17/2016 03/01/2022 Low back pain 09/14/2015 05/17/2016 Chronic pain 09/14/2015 05/17/2016 Neurodermatitis 04/22/2013 06/23/2021 Eczematous dermatitis 04/22/20132020 Pyoderma, unspecified 04/22/20132019 Impetigo 04/22/2013 09/16/2019 Pruritus 04/22/2013 09/16/2019 Excoriation 04/22/2013 09/16/2019 Prurigo papule 04/22/2013 03/01/2022 Lichenification and lichen simplex chronicus 3 06/23/2021 Xerosis cutis 04/22/2013 09/16/2019 Duodenitis 09/14/2011 06/23/2021 Acute gastritis without mention of hemorrhage 09/14/19 12 06/23/2021 Cough 05/30/2006 09/16/2019 Other acne 04/08/2005 09/16/2019 Other specified endocrine disorders 04/08/2005 09/16/2019 documented as of this encounter (statuses as of 06/10/2023) [facility] History of Past illness Narrative* Problem Noted Date Diagnosed Date Resolved Date Suicidal ideation 03/03/2022 07/04/2022 Hypomagnesemia 02/24/2022 03/01/2022 Last Assessment & Plan: Assessment: Hypomagnesemia Plan:Electrolyte replacement prn to keep Mg>2 Acute postoperative pain 02/23/2022 Last Assessment & Plan: Assessment: Acute post-operative pain, ? Post surgical radiculopathy : Surgical team aware. 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 Pt has an appt 02/14/2022 with vascular for pre-op clearance/follow up. Post-operative state 01/07/2022 022 Last Assessment & Plan: Assessment: s/p TILF Decompression Laminectomy PLAN: - DVT prophylaxis per Surgery - IS Q1hr - OOB ambulate when able Elevated dehydroepiandrosterone (DHEA) level 0 03/01/2022 Facet arthropathy, lumbar 05/17/2016 Chronic midline low back zully n without sciatica 05/17/2016 03/01/2022 Low back pain 09/14/2015 05/17/2016 Chronic pain 09/14/2015 05/17/2016 Neurodermatitis 04/22/2013 06/23/2021 Eczematous dermatitis 04/22/20132020 Pyoderma, unspecified 04/22/20132019 Impetigo 04/22/2013 09/16/2019 Pruritus 04/22/2013 09/16/2019 Excoriation 04/22/2013 09/16/2019 Prurigo papule 04/22/2013 03/01/2022 Lichenification and lichen simplex chronicus 3 06/23/2021 Xerosis cutis 04/22/2013 09/16/2019 Duodenitis 09/14/2011 06/23/2021 Acute gastritis without mention of hemorrhage 09/14/19 12 06/23/2021 Cough 05/30/2006 09/16/2019 Other acne 04/08/2005 09/16/2019 Other specified endocrine disorders 04/08/2005 09/16/2019 documented as of this encounter (statuses as of 06/10/2023) [facility]07-28-2022 History of Past illness Narrative* Problem Noted Date Diagnosed Date Resolved Date Suicidal ideation 03/03/2022 07/04/2022 Hypomagnesemia 02/24/2022 03/01/2022 Last Assessment & Plan: Assessment: Hypomagnesemia Plan:Electrolyte replacement prn to keep Mg>2 Acute postoperative pain 02/23/2022 Last Assessment & Plan: Assessment: Acute post-operative pain, ? Post surgical radiculopathy : Surgical team aware. 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 Pt has an appt 02/14/2022 with vascular for pre-op clearance/follow up. Post-operative state 01/07/2022 022 Last Assessment & Plan: Assessment: s/p TILF Decompression Laminectomy PLAN: - DVT prophylaxis per Surgery - IS Q1hr - OOB ambulate when able Elevated dehydroepiandrosterone (DHEA) level 0 03/01/2022 Facet arthropathy, lumbar 05/17/2016 Chronic midline low back zully n without sciatica 05/17/2016 03/01/2022 Low back pain 09/14/2015 05/17/2016 Chronic pain 09/14/2015 05/17/2016 Neurodermatitis 04/22/2013 06/23/2021 Eczematous dermatitis 04/22/20132020 Pyoderma, unspecified 04/22/20132019 Impetigo 04/22/2013 09/16/2019 Pruritus 04/22/2013 09/16/2019 Excoriation 04/22/2013 09/16/2019 Prurigo papule 04/22/2013 03/01/2022 Lichenification and lichen simplex chronicus 3 06/23/2021 Xerosis cutis 04/22/2013 09/16/2019 Duodenitis 09/14/2011 06/23/2021 Acute gastritis without mention of hemorrhage 09/14/19 12 06/23/2021 Cough 05/30/2006 09/16/2019 Other acne 04/08/2005 09/16/2019 Other specified endocrine disorders 04/08/2005 09/16/2019 documented as of this encounter (statuses as of 06/10/2023) [facility]22 History of Past illness Narrative* Problem Noted Date Diagnosed Date Resolved Date Suicidal ideation 03/03/2022 07/04/2022 Hypomagnesemia 02/24/2022 03/01/2022 Last Assessment & Plan: Assessment: Hypomagnesemia Plan:Electrolyte replacement prn to keep Mg>2 Acute postoperative pain 02/23/2022 Last Assessment & Plan: Assessment: Acute post-operative pain, ? Post surgical radiculopathy : Surgical team aware. 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 Pt has an appt 02/14/2022 with vascular for pre-op clearance/follow up. Post-operative state 01/07/2022 022 Last Assessment & Plan: Assessment: s/p TILF Decompression Laminectomy PLAN: - DVT prophylaxis per Surgery - IS Q1hr - OOB ambulate when able Elevated dehydroepiandrosterone (DHEA) level 0 03/01/2022 Facet arthropathy, lumbar 05/17/2016 Chronic midline low back zully n without sciatica 05/17/2016 03/01/2022 Low back pain 09/14/2015 05/17/2016 Chronic pain 09/14/2015 05/17/2016 Neurodermatitis 04/22/2013 06/23/2021 Eczematous dermatitis 04/22/20132020 Pyoderma, unspecified 04/22/20132019 Impetigo 04/22/2013 09/16/2019 Pruritus 04/22/2013 09/16/2019 Excoriation 04/22/2013 09/16/2019 Prurigo papule 04/22/2013 03/01/2022 Lichenification and lichen simplex chronicus 3 06/23/2021 Xerosis cutis 04/22/2013 09/16/2019 Duodenitis 09/14/2011 06/23/2021 Acute gastritis without mention of hemorrhage 09/14/19 12 06/23/2021 Cough 05/30/2006 09/16/2019 Other acne 04/08/2005 09/16/2019 Other specified endocrine disorders 04/08/2005 09/16/2019 documented as of this encounter (statuses as of 07/04/2023) [facility]22 History of Past illness Narrative* Problem Noted Date Diagnosed Date Resolved Date Suicidal ideation 03/03/2022 07/04/2022 Hypomagnesemia 02/24/2022 03/01/2022 Last Assessment & Plan: Assessment: Hypomagnesemia Plan:Electrolyte replacement prn to keep Mg>2 Acute postoperative pain 02/23/2022 Last Assessment & Plan: Assessment: Acute post-operative pain, ? Post surgical radiculopathy : Surgical team aware. 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 Pt has an appt 02/14/2022 with vascular for pre-op clearance/follow up. Post-operative state 01/07/2022 022 Last Assessment & Plan: Assessment: s/p TILF Decompression Laminectomy PLAN: - DVT prophylaxis per Surgery - IS Q1hr - OOB ambulate when able Elevated dehydroepiandrosterone (DHEA) level 0 03/01/2022 Facet arthropathy, lumbar 05/17/2016 Chronic midline low back zully n without sciatica 05/17/2016 03/01/2022 Low back pain 09/14/2015 05/17/2016 Chronic pain 09/14/2015 05/17/2016 Neurodermatitis 04/22/2013 06/23/2021 Eczematous dermatitis 04/22/20132020 Pyoderma, unspecified 04/22/20132019 Impetigo 04/22/2013 09/16/2019 Pruritus 04/22/2013 09/16/2019 Excoriation 04/22/2013 09/16/2019 Prurigo papule 04/22/2013 03/01/2022 Lichenification and lichen simplex chronicus 3 06/23/2021 Xerosis cutis 04/22/2013 09/16/2019 Duodenitis 09/14/2011 06/23/2021 Acute gastritis without mention of hemorrhage 09/14/19 12 06/23/2021 Cough 05/30/2006 09/16/2019 Other acne 04/08/2005 09/16/2019 Other specified endocrine disorders 04/08/2005 09/16/2019 documented as of this encounter (statuses as of 07/21/2023) [facility]22 History of Past illness Narrative* Problem Noted Date Diagnosed Date Resolved Date Suicidal ideation 03/03/2022 07/04/2022 Hypomagnesemia 02/24/2022 03/01/2022 Last Assessment & Plan: Assessment: Hypomagnesemia Plan:Electrolyte replacement prn to keep Mg>2 Acute postoperative pain 02/23/2022 Last Assessment & Plan: Assessment: Acute post-operative pain, ? Post surgical radiculopathy : Surgical team aware. 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 Pt has an appt 02/14/2022 with vascular for pre-op clearance/follow up. Post-operative state 01/07/2022 022 Last Assessment & Plan: Assessment: s/p TILF Decompression Laminectomy PLAN: - DVT prophylaxis per Surgery - IS Q1hr - OOB ambulate when able Elevated dehydroepiandrosterone (DHEA) level 0 03/01/2022 Facet arthropathy, lumbar 05/17/2016 Chronic midline low back zully n without sciatica 05/17/2016 03/01/2022 Low back pain 09/14/2015 05/17/2016 Chronic pain 09/14/2015 05/17/2016 Neurodermatitis 04/22/2013 06/23/2021 Eczematous dermatitis 04/22/20132020 Pyoderma, unspecified 04/22/20132019 Impetigo 04/22/2013 09/16/2019 Pruritus 04/22/2013 09/16/2019 Excoriation 04/22/2013 09/16/2019 Prurigo papule 04/22/2013 03/01/2022 Lichenification and lichen simplex chronicus 3 06/23/2021 Xerosis cutis 04/22/2013 09/16/2019 Duodenitis 09/14/2011 06/23/2021 Acute gastritis without mention of hemorrhage 09/14/19 12 06/23/2021 Cough 05/30/2006 09/16/2019 Other acne 04/08/2005 09/16/2019 Other specified endocrine disorders 04/08/2005 09/16/2019 documented as of this encounter (statuses as of 08/21/2023) [facility] History of Past illness Narrative* Problem Noted Date Resolved Date Hypomagnesemia 02/24/2022 03/01/2022 Last Assessment & Plan: Assessment: Hypomagnesemia Plan:Electrolyte replacement prn to keep Mg>2 Acute postoperative pain 02/23/2022 022 Last Assessment & Plan: Assessment: Acute post-operative pain, ? Post surgical radiculopathy : Surgical team aware. 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 Pt has an appt 02/14/2022 with vascular for pre-op clearance/follow up. Post-operative state 01/07/2022 03/01/2022 Last Assessment & Plan: Assessment: s/p TILF Decompression Laminectomy PLAN: - DVT prophylaxis per Surgery - IS Q1hr - OOB ambulate when able Elevated dehydroepiandrosterone (DHEA) level 05/202003/01/2022 Facet arthropathy, lumbar 05/17/20162021 Chronic midline low back pain without sciatica 1 03/01/2022 Low back pain 09/14/2015 05/17/2016 Chronic pain 09/14/2015 05/17/2016 Neurodermatitis 04/22/2013 06/23/2021 Eczematous dermatitis 04/22/2013 06/23/2021 Pyoderma, unspecified 04/22/2013 09/16/2019 Impetigo 04/22/2013 09/16/2019 Pruritus 04/22/2013 09/16/2019 Excoriation 04/22/2013 09/16/2019 Prurigo papule 04/22/2013 03/01/2022 Lichenification and lichen simplex chronicus 06/23/2021 Xerosis cutis 04/22/2013 09/16/2019 Duodenitis 09/14/2011 06/23/2021 Acute gastritis without mention of hemorrhage 06/23/2021 Tobacco use disorder 04/11/2007 03/01/2022 Cough 05/30/2006 09/16/2019 Other acne 04/08/2005 09/16/2019 Other specified endocrine disorders 04/08/2005 09/16/2019 documented as of this encounter (statuses as of 03/10/2022) [facility] History of Past illness Narrative* Problem Noted Date Resolved Date Hypomagnesemia 02/24/2022 03/01/2022 Last Assessment & Plan: Assessment: Hypomagnesemia Plan:Electrolyte replacement prn to keep Mg>2 Acute postoperative pain 02/23/2022 022 Last Assessment & Plan: Assessment: Acute post-operative pain, ? Post surgical radiculopathy : Surgical team aware. 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 Pt has an appt 02/14/2022 with vascular for pre-op clearance/follow up. Post-operative state 01/07/2022 03/01/2022 Last Assessment & Plan: Assessment: s/p TILF Decompression Laminectomy PLAN: - DVT prophylaxis per Surgery - IS Q1hr - OOB ambulate when able Elevated dehydroepiandrosterone (DHEA) level 05/202003/01/2022 Facet arthropathy, lumbar 05/17/20162021 Chronic midline low back pain without sciatica 1 03/01/2022 Low back pain 09/14/2015 05/17/2016 Chronic pain 09/14/2015 05/17/2016 Neurodermatitis 04/22/2013 06/23/2021 Eczematous dermatitis 04/22/2013 06/23/2021 Pyoderma, unspecified 04/22/2013 09/16/2019 Impetigo 04/22/2013 09/16/2019 Pruritus 04/22/2013 09/16/2019 Excoriation 04/22/2013 09/16/2019 Prurigo papule 04/22/2013 03/01/2022 Lichenification and lichen simplex chronicus 06/23/2021 Xerosis cutis 04/22/2013 09/16/2019 Duodenitis 09/14/2011 06/23/2021 Acute gastritis without mention of hemorrhage 06/23/2021 Tobacco use disorder 04/11/2007 03/01/2022 Cough 05/30/2006 09/16/2019 Other acne 04/08/2005 09/16/2019 Other specified endocrine disorders 04/08/2005 09/16/2019 documented as of this encounter (statuses as of 03/15/2022) [facility] History of Past illness Narrative* Problem Noted Date Resolved Date Hypomagnesemia 02/24/2022 03/01/2022 Last Assessment & Plan: Assessment: Hypomagnesemia Plan:Electrolyte replacement prn to keep Mg>2 Acute postoperative pain 02/23/2022 022 Last Assessment & Plan: Assessment: Acute post-operative pain, ? Post surgical radiculopathy : Surgical team aware. 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 Pt has an appt 02/14/2022 with vascular for pre-op clearance/follow up. Post-operative state 01/07/2022 03/01/2022 Last Assessment & Plan: Assessment: s/p TILF Decompression Laminectomy PLAN: - DVT prophylaxis per Surgery - IS Q1hr - OOB ambulate when able Elevated dehydroepiandrosterone (DHEA) level 05/202003/01/2022 Facet arthropathy, lumbar 05/17/20162021 Chronic midline low back pain without sciatica 1 03/01/2022 Low back pain 09/14/2015 05/17/2016 Chronic pain 09/14/2015 05/17/2016 Neurodermatitis 04/22/2013 06/23/2021 Eczematous dermatitis 04/22/2013 06/23/2021 Pyoderma, unspecified 04/22/2013 09/16/2019 Impetigo 04/22/2013 09/16/2019 Pruritus 04/22/2013 09/16/2019 Excoriation 04/22/2013 09/16/2019 Prurigo papule 04/22/2013 03/01/2022 Lichenification and lichen simplex chronicus 06/23/2021 Xerosis cutis 04/22/2013 09/16/2019 Duodenitis 09/14/2011 06/23/2021 Acute gastritis without mention of hemorrhage 06/23/2021 Tobacco use disorder 04/11/2007 03/01/2022 Cough 05/30/2006 09/16/2019 Other acne 04/08/2005 09/16/2019 Other specified endocrine disorders 04/08/2005 09/16/2019 documented as of this encounter (statuses as of 03/18/2022) [facility] History of Past illness Narrative* Problem Noted Date Resolved Date Hypomagnesemia 02/24/2022 03/01/2022 Last Assessment & Plan: Assessment: Hypomagnesemia Plan:Electrolyte replacement prn to keep Mg>2 Acute postoperative pain 02/23/2022 07/ 022 Last Assessment & Plan: Assessment: Acute post-operative pain, ? Post surgical radiculopathy : Surgical team aware. 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 Pt has an appt 02/14/2022 with vascular for pre-op clearance/follow up. Post-operative state 01/07/2022 03/01/2022 Last Assessment & Plan: Assessment: s/p TILF Decompression Laminectomy PLAN: - DVT prophylaxis per Surgery - IS Q1hr - OOB ambulate when able Elevated dehydroepiandrosterone (DHEA) level 05/202003/01/2022 Facet arthropathy, lumbar 05/17/20162021 Chronic midline low back pain without sciatica 1 03/01/2022 Low back pain 09/14/2015 05/17/2016 Chronic pain 09/14/2015 05/17/2016 Neurodermatitis 04/22/2013 06/23/2021 Eczematous dermatitis 04/22/2013 06/23/2021 Pyoderma, unspecified 04/22/2013 09/16/2019 Impetigo 04/22/2013 09/16/2019 Pruritus 04/22/2013 09/16/2019 Excoriation 04/22/2013 09/16/2019 Prurigo papule 04/22/2013 03/01/2022 Lichenification and lichen simplex chronicus 06/23/2021 Xerosis cutis 04/22/2013 09/16/2019 Duodenitis 09/14/2011 06/23/2021 Acute gastritis without mention of hemorrhage 06/23/2021 Tobacco use disorder 04/11/2007 03/01/2022 Cough 05/30/2006 09/16/2019 Other acne 04/08/2005 09/16/2019 Other specified endocrine disorders 04/08/2005 09/16/2019 documented as of this encounter (statuses as of 03/28/2022) [facility] History of Past illness Narrative* Problem Noted Date Resolved Date Hypomagnesemia 02/24/2022 03/01/2022 Last Assessment & Plan: Assessment: Hypomagnesemia Plan:Electrolyte replacement prn to keep Mg>2 Acute postoperative pain 02/23/2022 07/ 022 Last Assessment & Plan: Assessment: Acute post-operative pain, ? Post surgical radiculopathy : Surgical team aware. 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 Pt has an appt 02/14/2022 with vascular for pre-op clearance/follow up. Post-operative state 01/07/2022 03/01/2022 Last Assessment & Plan: Assessment: s/p TILF Decompression Laminectomy PLAN: - DVT prophylaxis per Surgery - IS Q1hr - OOB ambulate when able Elevated dehydroepiandrosterone (DHEA) level 05/202003/01/2022 Facet arthropathy, lumbar 05/17/20162021 Chronic midline low back pain without sciatica 1 03/01/2022 Low back pain 09/14/2015 05/17/2016 Chronic pain 09/14/2015 05/17/2016 Neurodermatitis 04/22/2013 06/23/2021 Eczematous dermatitis 04/22/2013 06/23/2021 Pyoderma, unspecified 04/22/2013 09/16/2019 Impetigo 04/22/2013 09/16/2019 Pruritus 04/22/2013 09/16/2019 Excoriation 04/22/2013 09/16/2019 Prurigo papule 04/22/2013 03/01/2022 Lichenification and lichen simplex chronicus 06/23/2021 Xerosis cutis 04/22/2013 09/16/2019 Duodenitis 09/14/2011 06/23/2021 Acute gastritis without mention of hemorrhage 06/23/2021 Tobacco use disorder 04/11/2007 03/01/2022 Cough 05/30/2006 09/16/2019 Other acne 04/08/2005 09/16/2019 Other specified endocrine disorders 04/08/2005 09/16/2019 documented as of this encounter (statuses as of 03/29/2022) [facility] History of Past illness Narrative* Problem Noted Date Resolved Date Hypomagnesemia 02/24/2022 03/01/2022 Last Assessment & Plan: Assessment: Hypomagnesemia Plan:Electrolyte replacement prn to keep Mg>2 Acute postoperative pain 02/23/2022 022 Last Assessment & Plan: Assessment: Acute post-operative pain, ? Post surgical radiculopathy : Surgical team aware. 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 Pt has an appt 02/14/2022 with vascular for pre-op clearance/follow up. Post-operative state 01/07/2022 03/01/2022 Last Assessment & Plan: Assessment: s/p TILF Decompression Laminectomy PLAN: - DVT prophylaxis per Surgery - IS Q1hr - OOB ambulate when able Elevated dehydroepiandrosterone (DHEA) level 05/202003/01/2022 Facet arthropathy, lumbar 05/17/20162021 Chronic midline low back pain without sciatica 1 03/01/2022 Low back pain 09/14/2015 05/17/2016 Chronic pain 09/14/2015 05/17/2016 Neurodermatitis 04/22/2013 06/23/2021 Eczematous dermatitis 04/22/2013 06/23/2021 Pyoderma, unspecified 04/22/2013 09/16/2019 Impetigo 04/22/2013 09/16/2019 Pruritus 04/22/2013 09/16/2019 Excoriation 04/22/2013 09/16/2019 Prurigo papule 04/22/2013 03/01/2022 Lichenification and lichen simplex chronicus 06/23/2021 Xerosis cutis 04/22/2013 09/16/2019 Duodenitis 09/14/2011 06/23/2021 Acute gastritis without mention of hemorrhage 06/23/2021 Tobacco use disorder 04/11/2007 03/01/2022 Cough 05/30/2006 09/16/2019 Other acne 04/08/2005 09/16/2019 Other specified endocrine disorders 04/08/2005 09/16/2019 documented as of this encounter (statuses as of 03/30/2022) [facility] History of Past illness Narrative* Problem Noted Date Resolved Date Hypomagnesemia 02/24/2022 03/01/2022 Last Assessment & Plan: Assessment: Hypomagnesemia Plan:Electrolyte replacement prn to keep Mg>2 Acute postoperative pain 02/23/2022 07 022 Last Assessment & Plan: Assessment: Acute post-operative pain, ? Post surgical radiculopathy : Surgical team aware. 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 Pt has an appt 02/14/2022 with vascular for pre-op clearance/follow up. Post-operative state 01/07/2022 03/01/2022 Last Assessment & Plan: Assessment: s/p TILF Decompression Laminectomy PLAN: - DVT prophylaxis per Surgery - IS Q1hr - OOB ambulate when able Elevated dehydroepiandrosterone (DHEA) level 05/202003/01/2022 Facet arthropathy, lumbar 05/17/20162021 Chronic midline low back pain without sciatica 1 03/01/2022 Low back pain 09/14/2015 05/17/2016 Chronic pain 09/14/2015 05/17/2016 Neurodermatitis 04/22/2013 06/23/2021 Eczematous dermatitis 04/22/2013 06/23/2021 Pyoderma, unspecified 04/22/2013 09/16/2019 Impetigo 04/22/2013 09/16/2019 Pruritus 04/22/2013 09/16/2019 Excoriation 04/22/2013 09/16/2019 Prurigo papule 04/22/2013 03/01/2022 Lichenification and lichen simplex chronicus 06/23/2021 Xerosis cutis 04/22/2013 09/16/2019 Duodenitis 09/14/2011 06/23/2021 Acute gastritis without mention of hemorrhage 06/23/2021 Tobacco use disorder 04/11/2007 03/01/2022 Cough 05/30/2006 09/16/2019 Other acne 04/08/2005 09/16/2019 Other specified endocrine disorders 04/08/2005 09/16/2019 documented as of this encounter (statuses as of 04/01/2022) [facility] History of Past illness Narrative* Problem Noted Date Resolved Date Hypomagnesemia 02/24/2022 03/01/2022 Last Assessment & Plan: Assessment: Hypomagnesemia Plan:Electrolyte replacement prn to keep Mg>2 Acute postoperative pain 02/23/2022 022 Last Assessment & Plan: Assessment: Acute post-operative pain, ? Post surgical radiculopathy : Surgical team aware. 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 Pt has an appt 02/14/2022 with vascular for pre-op clearance/follow up. Post-operative state 01/07/2022 03/01/2022 Last Assessment & Plan: Assessment: s/p TILF Decompression Laminectomy PLAN: - DVT prophylaxis per Surgery - IS Q1hr - OOB ambulate when able Elevated dehydroepiandrosterone (DHEA) level 05/202003/01/2022 Facet arthropathy, lumbar 05/17/20162021 Chronic midline low back pain without sciatica 1 03/01/2022 Low back pain 09/14/2015 05/17/2016 Chronic pain 09/14/2015 05/17/2016 Neurodermatitis 04/22/2013 06/23/2021 Eczematous dermatitis 04/22/2013 06/23/2021 Pyoderma, unspecified 04/22/2013 09/16/2019 Impetigo 04/22/2013 09/16/2019 Pruritus 04/22/2013 09/16/2019 Excoriation 04/22/2013 09/16/2019 Prurigo papule 04/22/2013 03/01/2022 Lichenification and lichen simplex chronicus 06/23/2021 Xerosis cutis 04/22/2013 09/16/2019 Duodenitis 09/14/2011 06/23/2021 Acute gastritis without mention of hemorrhage 06/23/2021 Tobacco use disorder 04/11/2007 03/01/2022 Cough 05/30/2006 09/16/2019 Other acne 04/08/2005 09/16/2019 Other specified endocrine disorders 04/08/2005 09/16/2019 documented as of this encounter (statuses as of 04/21/2022) [facility] History of Past illness Narrative* Problem Noted Date Resolved Date Hypomagnesemia 02/24/2022 03/01/2022 Last Assessment & Plan: Assessment: Hypomagnesemia Plan:Electrolyte replacement prn to keep Mg>2 Acute postoperative pain 02/23/202203/03/2 022 Last Assessment & Plan: Assessment: Acute post-operative pain, ? Post surgical radiculopathy : Surgical team aware. 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 Pt has an appt 02/14/2022 with vascular for pre-op clearance/follow up. Post-operative state 01/07/2022 03/01/2022 Last Assessment & Plan: Assessment: s/p TILF Decompression Laminectomy PLAN: - DVT prophylaxis per Surgery - IS Q1hr - OOB ambulate when able Elevated dehydroepiandrosterone (DHEA) level 05/202003/01/2022 Facet arthropathy, lumbar 05/17/20162021 Chronic midline low back pain without sciatica 1 03/01/2022 Low back pain 09/14/2015 05/17/2016 Chronic pain 09/14/2015 05/17/2016 Neurodermatitis 04/22/2013 06/23/2021 Eczematous dermatitis 04/22/2013 06/23/2021 Pyoderma, unspecified 04/22/2013 09/16/2019 Impetigo 04/22/2013 09/16/2019 Pruritus 04/22/2013 09/16/2019 Excoriation 04/22/2013 09/16/2019 Prurigo papule 04/22/2013 03/01/2022 Lichenification and lichen simplex chronicus 06/23/2021 Xerosis cutis 04/22/2013 09/16/2019 Duodenitis 09/14/2011 06/23/2021 Acute gastritis without mention of hemorrhage 06/23/2021 Tobacco use disorder 04/11/2007 03/01/2022 Cough 05/30/2006 09/16/2019 Other acne 04/08/2005 09/16/2019 Other specified endocrine disorders 04/08/2005 09/16/2019 documented as of this encounter (statuses as of 05/06/2022) [facility]-21-2022 History of Past illness Narrative* Problem Noted Date Resolved Date Hypomagnesemia 02/24/2022 03/01/2022 Last Assessment & Plan: Assessment: Hypomagnesemia Plan:Electrolyte replacement prn to keep Mg>2 Acute postoperative pain 02/23/2022 022 Last Assessment & Plan: Assessment: Acute post-operative pain, ? Post surgical radiculopathy : Surgical team aware. 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 Pt has an appt 02/14/2022 with vascular for pre-op clearance/follow up. Post-operative state 01/07/2022 03/01/2022 Last Assessment & Plan: Assessment: s/p TILF Decompression Laminectomy PLAN: - DVT prophylaxis per Surgery - IS Q1hr - OOB ambulate when able Elevated dehydroepiandrosterone (DHEA) level 05/202003/01/2022 Facet arthropathy, lumbar 05/17/20162021 Chronic midline low back pain without sciatica 1 03/01/2022 Low back pain 09/14/2015 05/17/2016 Chronic pain 09/14/2015 05/17/2016 Neurodermatitis 04/22/2013 06/23/2021 Eczematous dermatitis 04/22/2013 06/23/2021 Pyoderma, unspecified 04/22/2013 09/16/2019 Impetigo 04/22/2013 09/16/2019 Pruritus 04/22/2013 09/16/2019 Excoriation 04/22/2013 09/16/2019 Prurigo papule 04/22/2013 03/01/2022 Lichenification and lichen simplex chronicus 06/23/2021 Xerosis cutis 04/22/2013 09/16/2019 Duodenitis 09/14/2011 06/23/2021 Acute gastritis without mention of hemorrhage 06/23/2021 Tobacco use disorder 04/11/2007 03/01/2022 Cough 05/30/2006 09/16/2019 Other acne 04/08/2005 09/16/2019 Other specified endocrine disorders 04/08/2005 09/16/2019 documented as of this encounter (statuses as of 05/09/2022) [facility]-21-2022 History of Past illness Narrative* Problem Noted Date Resolved Date Hypomagnesemia 02/24/2022 03/01/2022 Last Assessment & Plan: Assessment: Hypomagnesemia Plan:Electrolyte replacement prn to keep Mg>2 Acute postoperative pain 02/23/2022 022 Last Assessment & Plan: Assessment: Acute post-operative pain, ? Post surgical radiculopathy : Surgical team aware. 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 Pt has an appt 02/14/2022 with vascular for pre-op clearance/follow up. Post-operative state 01/07/2022 03/01/2022 Last Assessment & Plan: Assessment: s/p TILF Decompression Laminectomy PLAN: - DVT prophylaxis per Surgery - IS Q1hr - OOB ambulate when able Elevated dehydroepiandrosterone (DHEA) level 05/202003/01/2022 Facet arthropathy, lumbar 05/17/20162021 Chronic midline low back pain without sciatica 1 03/01/2022 Low back pain 09/14/2015 05/17/2016 Chronic pain 09/14/2015 05/17/2016 Neurodermatitis 04/22/2013 06/23/2021 Eczematous dermatitis 04/22/2013 06/23/2021 Pyoderma, unspecified 04/22/2013 09/16/2019 Impetigo 04/22/2013 09/16/2019 Pruritus 04/22/2013 09/16/2019 Excoriation 04/22/2013 09/16/2019 Prurigo papule 04/22/2013 03/01/2022 Lichenification and lichen simplex chronicus 06/23/2021 Xerosis cutis 04/22/2013 09/16/2019 Duodenitis 09/14/2011 06/23/2021 Acute gastritis without mention of hemorrhage 06/23/2021 Tobacco use disorder 04/11/2007 03/01/2022 Cough 05/30/2006 09/16/2019 Other acne 04/08/2005 09/16/2019 Other specified endocrine disorders 04/08/2005 09/16/2019 documented as of this encounter (statuses as of 05/11/2022) [facility]2022 History of Past illness Narrative* Problem Noted Date Resolved Date Hypomagnesemia 02/24/2022 03/01/2022 Last Assessment & Plan: Assessment: Hypomagnesemia Plan:Electrolyte replacement prn to keep Mg>2 Acute postoperative pain 02/23/2022 022 Last Assessment & Plan: Assessment: Acute post-operative pain, ? Post surgical radiculopathy : Surgical team aware. 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 Pt has an appt 02/14/2022 with vascular for pre-op clearance/follow up. Post-operative state 01/07/2022 03/01/2022 Last Assessment & Plan: Assessment: s/p TILF Decompression Laminectomy PLAN: - DVT prophylaxis per Surgery - IS Q1hr - OOB ambulate when able Elevated dehydroepiandrosterone (DHEA) level 05/202003/01/2022 Facet arthropathy, lumbar 05/17/20162021 Chronic midline low back pain without sciatica 1 03/01/2022 Low back pain 09/14/2015 05/17/2016 Chronic pain 09/14/2015 05/17/2016 Neurodermatitis 04/22/2013 06/23/2021 Eczematous dermatitis 04/22/2013 06/23/2021 Pyoderma, unspecified 04/22/2013 09/16/2019 Impetigo 04/22/2013 09/16/2019 Pruritus 04/22/2013 09/16/2019 Excoriation 04/22/2013 09/16/2019 Prurigo papule 04/22/2013 03/01/2022 Lichenification and lichen simplex chronicus 06/23/2021 Xerosis cutis 04/22/2013 09/16/2019 Duodenitis 09/14/2011 06/23/2021 Acute gastritis without mention of hemorrhage 06/23/2021 Tobacco use disorder 04/11/2007 03/01/2022 Cough 05/30/2006 09/16/2019 Other acne 04/08/2005 09/16/2019 Other specified endocrine disorders 04/08/2005 09/16/2019 documented as of this encounter (statuses as of 05/21/2022) [facility]2022 History of Past illness Narrative* Problem Noted Date Resolved Date Hypomagnesemia 02/24/2022 03/01/2022 Last Assessment & Plan: Assessment: Hypomagnesemia Plan:Electrolyte replacement prn to keep Mg>2 Acute postoperative pain 02/23/2022 022 Last Assessment & Plan: Assessment: Acute post-operative pain, ? Post surgical radiculopathy : Surgical team aware. 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 Pt has an appt 02/14/2022 with vascular for pre-op clearance/follow up. Post-operative state 01/07/2022 03/01/2022 Last Assessment & Plan: Assessment: s/p TILF Decompression Laminectomy PLAN: - DVT prophylaxis per Surgery - IS Q1hr - OOB ambulate when able Elevated dehydroepiandrosterone (DHEA) level 05/202003/01/2022 Facet arthropathy, lumbar 05/17/20162021 Chronic midline low back pain without sciatica 1 03/01/2022 Low back pain 09/14/2015 05/17/2016 Chronic pain 09/14/2015 05/17/2016 Neurodermatitis 04/22/2013 06/23/2021 Eczematous dermatitis 04/22/2013 06/23/2021 Pyoderma, unspecified 04/22/2013 09/16/2019 Impetigo 04/22/2013 09/16/2019 Pruritus 04/22/2013 09/16/2019 Excoriation 04/22/2013 09/16/2019 Prurigo papule 04/22/2013 03/01/2022 Lichenification and lichen simplex chronicus 06/23/2021 Xerosis cutis 04/22/2013 09/16/2019 Duodenitis 09/14/2011 06/23/2021 Acute gastritis without mention of hemorrhage 06/23/2021 Tobacco use disorder 04/11/2007 03/01/2022 Cough 05/30/2006 09/16/2019 Other acne 04/08/2005 09/16/2019 Other specified endocrine disorders 04/08/2005 09/16/2019 documented as of this encounter (statuses as of 05/23/2022) [place] [id number] History of Past illness Narrative* Problem Noted Date Resolved Date Hypomagnesemia 02/24/2022 03/01/2022 Last Assessment & Plan: Assessment: Hypomagnesemia Plan:Electrolyte replacement prn to keep Mg>2 Acute postoperative pain 02/23/202205/19/ 022 Last Assessment & Plan: Assessment: Acute post-operative pain, ? Post surgical radiculopathy : Surgical team aware. 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 Pt has an appt 02/14/2022 with vascular for pre-op clearance/follow up. Post-operative state 01/07/2022 03/01/2022 Last Assessment & Plan: Assessment: s/p TILF Decompression Laminectomy PLAN: - DVT prophylaxis per Surgery - IS Q1hr - OOB ambulate when able Elevated dehydroepiandrosterone (DHEA) level 05/202003/01/2022 Facet arthropathy, lumbar 05/17/20162021 Chronic midline low back pain without sciatica 1 03/01/2022 Low back pain 09/14/2015 05/17/2016 Chronic pain 09/14/2015 05/17/2016 Neurodermatitis 04/22/2013 06/23/2021 Eczematous dermatitis 04/22/2013 06/23/2021 Pyoderma, unspecified 04/22/2013 09/16/2019 Impetigo 04/22/2013 09/16/2019 Pruritus 04/22/2013 09/16/2019 Excoriation 04/22/2013 09/16/2019 Prurigo papule 04/22/2013 03/01/2022 Lichenification and lichen simplex chronicus 06/23/2021 Xerosis cutis 04/22/2013 09/16/2019 Duodenitis 09/14/2011 06/23/2021 Acute gastritis without mention of hemorrhage 06/23/2021 Tobacco use disorder 04/11/2007 03/01/2022 Cough 05/30/2006 09/16/2019 Other acne 04/08/2005 09/16/2019 Other specified endocrine disorders 04/08/2005 09/16/2019 documented as of this encounter (statuses as of 05/30/2022) [facility]22 History of Past illness Narrative* Problem Noted Date Resolved Date Hypomagnesemia 02/24/2022 03/01/2022 Last Assessment & Plan: Assessment: Hypomagnesemia Plan:Electrolyte replacement prn to keep Mg>2 Acute postoperative pain 02/23/2022 022 Last Assessment & Plan: Assessment: Acute post-operative pain, ? Post surgical radiculopathy : Surgical team aware. 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 Pt has an appt 02/14/2022 with vascular for pre-op clearance/follow up. Post-operative state 01/07/2022 03/01/2022 Last Assessment & Plan: Assessment: s/p TILF Decompression Laminectomy PLAN: - DVT prophylaxis per Surgery - IS Q1hr - OOB ambulate when able Elevated dehydroepiandrosterone (DHEA) level 05/202003/01/2022 Facet arthropathy, lumbar 05/17/20162021 Chronic midline low back pain without sciatica 1 03/01/2022 Low back pain 09/14/2015 05/17/2016 Chronic pain 09/14/2015 05/17/2016 Neurodermatitis 04/22/2013 06/23/2021 Eczematous dermatitis 04/22/2013 06/23/2021 Pyoderma, unspecified 04/22/2013 09/16/2019 Impetigo 04/22/2013 09/16/2019 Pruritus 04/22/2013 09/16/2019 Excoriation 04/22/2013 09/16/2019 Prurigo papule 04/22/2013 03/01/2022 Lichenification and lichen simplex chronicus 06/23/2021 Xerosis cutis 04/22/2013 09/16/2019 Duodenitis 09/14/2011 06/23/2021 Acute gastritis without mention of hemorrhage 06/23/2021 Tobacco use disorder 04/11/2007 03/01/2022 Cough 05/30/2006 09/16/2019 Other acne 04/08/2005 09/16/2019 Other specified endocrine disorders 04/08/2005 09/16/2019 documented as of this encounter (statuses as of 05/20/2022) [facility] History of Past illness Narrative* Problem Noted Date Resolved Date Hypomagnesemia 02/24/2022 03/01/2022 Last Assessment & Plan: Assessment: Hypomagnesemia Plan:Electrolyte replacement prn to keep Mg>2 Acute postoperative pain 02/23/2022 022 Last Assessment & Plan: Assessment: Acute post-operative pain, ? Post surgical radiculopathy : Surgical team aware. 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 Pt has an appt 02/14/2022 with vascular for pre-op clearance/follow up. Post-operative state 01/07/2022 03/01/2022 Last Assessment & Plan: Assessment: s/p TILF Decompression Laminectomy PLAN: - DVT prophylaxis per Surgery - IS Q1hr - OOB ambulate when able Elevated dehydroepiandrosterone (DHEA) level 05/202003/01/2022 Facet arthropathy, lumbar 05/17/20162021 Chronic midline low back pain without sciatica 1 03/01/2022 Low back pain 09/14/2015 05/17/2016 Chronic pain 09/14/2015 05/17/2016 Neurodermatitis 04/22/2013 06/23/2021 Eczematous dermatitis 04/22/2013 06/23/2021 Pyoderma, unspecified 04/22/2013 09/16/2019 Impetigo 04/22/2013 09/16/2019 Pruritus 04/22/2013 09/16/2019 Excoriation 04/22/2013 09/16/2019 Prurigo papule 04/22/2013 03/01/2022 Lichenification and lichen simplex chronicus 06/23/2021 Xerosis cutis 04/22/2013 09/16/2019 Duodenitis 09/14/2011 06/23/2021 Acute gastritis without mention of hemorrhage 06/23/2021 Tobacco use disorder 04/11/2007 03/01/2022 Cough 05/30/2006 09/16/2019 Other acne 04/08/2005 09/16/2019 Other specified endocrine disorders 04/08/2005 09/16/2019 documented as of this encounter (statuses as of 05/31/2022) [facility] History of Past illness Narrative* Problem Noted Date Resolved Date Hypomagnesemia 02/24/2022 03/01/2022 Last Assessment & Plan: Assessment: Hypomagnesemia Plan:Electrolyte replacement prn to keep Mg>2 Acute postoperative pain 02/23/2022 022 Last Assessment & Plan: Assessment: Acute post-operative pain, ? Post surgical radiculopathy : Surgical team aware. 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 Pt has an appt 02/14/2022 with vascular for pre-op clearance/follow up. Post-operative state 01/07/2022 03/01/2022 Last Assessment & Plan: Assessment: s/p TILF Decompression Laminectomy PLAN: - DVT prophylaxis per Surgery - IS Q1hr - OOB ambulate when able Elevated dehydroepiandrosterone (DHEA) level 05/202003/01/2022 Facet arthropathy, lumbar 05/17/20162021 Chronic midline low back pain without sciatica 1 03/01/2022 Low back pain 09/14/2015 05/17/2016 Chronic pain 09/14/2015 05/17/2016 Neurodermatitis 04/22/2013 06/23/2021 Eczematous dermatitis 04/22/2013 06/23/2021 Pyoderma, unspecified 04/22/2013 09/16/2019 Impetigo 04/22/2013 09/16/2019 Pruritus 04/22/2013 09/16/2019 Excoriation 04/22/2013 09/16/2019 Prurigo papule 04/22/2013 03/01/2022 Lichenification and lichen simplex chronicus 06/23/2021 Xerosis cutis 04/22/2013 09/16/2019 Duodenitis 09/14/2011 06/23/2021 Acute gastritis without mention of hemorrhage 06/23/2021 Tobacco use disorder 04/11/2007 03/01/2022 Cough 05/30/2006 09/16/2019 Other acne 04/08/2005 09/16/2019 Other specified endocrine disorders 04/08/2005 09/16/2019 documented as of this encounter (statuses as of 06/02/2022) [facility] History of Past illness Narrative* Problem Noted Date Resolved Date Hypomagnesemia 02/24/2022 03/01/2022 Last Assessment & Plan: Assessment: Hypomagnesemia Plan:Electrolyte replacement prn to keep Mg>2 Acute postoperative pain 02/23/2022 022 Last Assessment & Plan: Assessment: Acute post-operative pain, ? Post surgical radiculopathy : Surgical team aware. 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 Pt has an appt 02/14/2022 with vascular for pre-op clearance/follow up. Post-operative state 01/07/2022 03/01/2022 Last Assessment & Plan: Assessment: s/p TILF Decompression Laminectomy PLAN: - DVT prophylaxis per Surgery - IS Q1hr - OOB ambulate when able Elevated dehydroepiandrosterone (DHEA) level 05/202003/01/2022 Facet arthropathy, lumbar 05/17/20162021 Chronic midline low back pain without sciatica 1 03/01/2022 Low back pain 09/14/2015 05/17/2016 Chronic pain 09/14/2015 05/17/2016 Neurodermatitis 04/22/2013 06/23/2021 Eczematous dermatitis 04/22/2013 06/23/2021 Pyoderma, unspecified 04/22/2013 09/16/2019 Impetigo 04/22/2013 09/16/2019 Pruritus 04/22/2013 09/16/2019 Excoriation 04/22/2013 09/16/2019 Prurigo papule 04/22/2013 03/01/2022 Lichenification and lichen simplex chronicus 06/23/2021 Xerosis cutis 04/22/2013 09/16/2019 Duodenitis 09/14/2011 06/23/2021 Acute gastritis without mention of hemorrhage 06/23/2021 Tobacco use disorder 04/11/2007 03/01/2022 Cough 05/30/2006 09/16/2019 Other acne 04/08/2005 09/16/2019 Other specified endocrine disorders 04/08/2005 09/16/2019 documented as of this encounter (statuses as of 06/08/2022) [facility] History of Past illness Narrative* Problem Noted Date Resolved Date Hypomagnesemia 02/24/2022 03/01/2022 Last Assessment & Plan: Assessment: Hypomagnesemia Plan:Electrolyte replacement prn to keep Mg>2 Acute postoperative pain 02/23/2022 022 Last Assessment & Plan: Assessment: Acute post-operative pain, ? Post surgical radiculopathy : Surgical team aware. 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 Pt has an appt 02/14/2022 with vascular for pre-op clearance/follow up. Post-operative state 01/07/2022 03/01/2022 Last Assessment & Plan: Assessment: s/p TILF Decompression Laminectomy PLAN: - DVT prophylaxis per Surgery - IS Q1hr - OOB ambulate when able Elevated dehydroepiandrosterone (DHEA) level 05/202003/01/2022 Facet arthropathy, lumbar 05/17/20162021 Chronic midline low back pain without sciatica 1 03/01/2022 Low back pain 09/14/2015 05/17/2016 Chronic pain 09/14/2015 05/17/2016 Neurodermatitis 04/22/2013 06/23/2021 Eczematous dermatitis 04/22/2013 06/23/2021 Pyoderma, unspecified 04/22/2013 09/16/2019 Impetigo 04/22/2013 09/16/2019 Pruritus 04/22/2013 09/16/2019 Excoriation 04/22/2013 09/16/2019 Prurigo papule 04/22/2013 03/01/2022 Lichenification and lichen simplex chronicus 06/23/2021 Xerosis cutis 04/22/2013 09/16/2019 Duodenitis 09/14/2011 06/23/2021 Acute gastritis without mention of hemorrhage 06/23/2021 Tobacco use disorder 04/11/2007 03/01/2022 Cough 05/30/2006 09/16/2019 Other acne 04/08/2005 09/16/2019 Other specified endocrine disorders 04/08/2005 09/16/2019 documented as of this encounter (statuses as of 06/17/2022) [facility] History of Past illness Narrative* Problem Noted Date Resolved Date Hypomagnesemia 02/24/2022 03/01/2022 Last Assessment & Plan: Assessment: Hypomagnesemia Plan:Electrolyte replacement prn to keep Mg>2 Acute postoperative pain 02/23/2022 022 Last Assessment & Plan: Assessment: Acute post-operative pain, ? Post surgical radiculopathy : Surgical team aware. 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 Pt has an appt 02/14/2022 with vascular for pre-op clearance/follow up. Post-operative state 01/07/2022 03/01/2022 Last Assessment & Plan: Assessment: s/p TILF Decompression Laminectomy PLAN: - DVT prophylaxis per Surgery - IS Q1hr - OOB ambulate when able Elevated dehydroepiandrosterone (DHEA) level 05/202003/01/2022 Facet arthropathy, lumbar 05/17/20162021 Chronic midline low back pain without sciatica 1 03/01/2022 Low back pain 09/14/2015 05/17/2016 Chronic pain 09/14/2015 05/17/2016 Neurodermatitis 04/22/2013 06/23/2021 Eczematous dermatitis 04/22/2013 06/23/2021 Pyoderma, unspecified 04/22/2013 09/16/2019 Impetigo 04/22/2013 09/16/2019 Pruritus 04/22/2013 09/16/2019 Excoriation 04/22/2013 09/16/2019 Prurigo papule 04/22/2013 03/01/2022 Lichenification and lichen simplex chronicus 06/23/2021 Xerosis cutis 04/22/2013 09/16/2019 Duodenitis 09/14/2011 06/23/2021 Acute gastritis without mention of hemorrhage 06/23/2021 Tobacco use disorder 04/11/2007 03/01/2022 Cough 05/30/2006 09/16/2019 Other acne 04/08/2005 09/16/2019 Other specified endocrine disorders 04/08/2005 09/16/2019 documented as of this encounter (statuses as of 06/23/2022) [facility] History of Past illness Narrative* Problem Noted Date Resolved Date Hypomagnesemia 02/24/2022 03/01/2022 Last Assessment & Plan: Assessment: Hypomagnesemia Plan:Electrolyte replacement prn to keep Mg>2 Acute postoperative pain 02/23/2022 022 Last Assessment & Plan: Assessment: Acute post-operative pain, ? Post surgical radiculopathy : Surgical team aware. 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 Pt has an appt 02/14/2022 with vascular for pre-op clearance/follow up. Post-operative state 01/07/2022 03/01/2022 Last Assessment & Plan: Assessment: s/p TILF Decompression Laminectomy PLAN: - DVT prophylaxis per Surgery - IS Q1hr - OOB ambulate when able Elevated dehydroepiandrosterone (DHEA) level 05/202003/01/2022 Facet arthropathy, lumbar 05/17/20162021 Chronic midline low back pain without sciatica 1 03/01/2022 Low back pain 09/14/2015 05/17/2016 Chronic pain 09/14/2015 05/17/2016 Neurodermatitis 04/22/2013 06/23/2021 Eczematous dermatitis 04/22/2013 06/23/2021 Pyoderma, unspecified 04/22/2013 09/16/2019 Impetigo 04/22/2013 09/16/2019 Pruritus 04/22/2013 09/16/2019 Excoriation 04/22/2013 09/16/2019 Prurigo papule 04/22/2013 03/01/2022 Lichenification and lichen simplex chronicus 06/23/2021 Xerosis cutis 04/22/2013 09/16/2019 Duodenitis 09/14/2011 06/23/2021 Acute gastritis without mention of hemorrhage 06/23/2021 Tobacco use disorder 04/11/2007 03/01/2022 Cough 05/30/2006 09/16/2019 Other acne 04/08/2005 09/16/2019 Other specified endocrine disorders 04/08/2005 09/16/2019 documented as of this encounter (statuses as of 06/28/2022) [facility] History of Present illness Narrative* Libby White PA-C - 02/17/2022 9:58 AM EDT Received email that previous appeal for use of Infuse has not been reviewed yet. I resent appeal information this AM via fax. 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 [facility] [place] DEPARTMENT OF VASCULAR SURGERY OUTPATIENT VISIT DATE February 14, 2022 OUTPATIENT VISIT TYPE ESTABLISHED SERVICE DATE: 02/14/2022 SERVICE TIME: 11:15 AM PRIMARY CARE PHYSICIAN: Elvin Diaz MD HISTORY OF PRESENT ILLNESS: Ms. Dinero is a 51 year old female who presents today for a post operative vascular surgery follow-up visit status post 01/07/22 ALIF with aborted L3-4 and L5-1 discectomy due to absent pulsation in the left EIA after mobilization with Dr. Birch. She additionally underwent left iliac endarterectomy and thrombectomy with Dr. Hobson. Today, she reports significant lower back pain that radiates to her hips and legs when upright with limited ambulation. Alleviating factors include lying down. She has been taking her medications as prescribed. She has a history of tobacco use. 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 PAST SURGICAL HISTORY OF 04/29/2012 excision of back lump SIGMOIDOSCOPY FLX DX W/COLLJ SPEC BR/WA IF PFRMD 09/14/2011 Sigmoidoscopy, flexible SOCIAL HISTORY Social History Tobacco Use Smoking status: Former Smoker Packs/day: 1.00 Years: 40.00 Pack years: 40.00 Types: Cigarettes Smokeless tobacco: Never Used Tobacco comment: started age 13, quit 52 days ago Vaping Use Vaping Use: Never used Substance Use Topics Alcohol use: Not Currently Drug use: Not Currently Comment: experimented in 20s MEDICATIONS: diphenhydramine HCl (BENADRYL ORAL) Take by mouth daily at bedtime. methocarbamol (ROBAXIN) 500 mg tablet Take 1 tablet by mouth three times daily for 28 days. gabapentin (NEURONTIN) 300 mg capsule Take 1 capsule by mouth as directed for 30 days. 900 mg at night before bed, 300 mg in the morning and 300 mg in the afternoon sennosides (SENNA ORAL) Take by mouth. fexofenadine (STANLEY ALLERGY) 180 mg tablet Take 180 mg by mouth once daily. spironolactone (ALDACTONE) 50 mg tablet Take 1 tablet by mouth twice daily. Per Dr. Roger Elam, dermatology. triamcinolone acetonide (NASACORT AQ) 55 mcg nasal inhaler Use 2 Sprays in the nose. albuterol sulfate (PROAIR RESPICLICK) 90 mcg/actuation aepb Inhale 2 Puffs as instructed every 4 hours as needed. famotidine (PEPCID ORAL) Take 1 tablet by mouth twice daily. [START ON 02/18/2022] mupirocin (BACTROBAN) 2 % ointment Apply 1/2 Bactroban with a cotton swab to each nostril in the morning and at bedtime starting 5 days prior to surgery. oxyCODONE IR (ROXICODONE) 5 mg immediate release tablet Take 1-2 tablets by mouth every 6 hours as needed for pain. ALLERGIES: ALLERGIES Allergen Reactions Prednisone Mental Status Change FEELS LIKE I'M GOING NUTS Zyban [Bupropion] Mental Status Change Suicidal thoughts Animal Hair-Dander * Hives Cats Hives Dogs Hives Niacin Rash, Vomiting Pollen Hives Ciprofloxacin Vomiting States can take if she eats with it. Grass Pollen Intolerance Trees Intolerance PHYSICAL EXAM: [facility] 03/02/2015 General: Alert and oriented, using rollator Integumentary: Normal color, no rash, no lesions. HEENT: EOM, pupils equal, round and reactive. Cardiovascular: Pulse regular. Lungs: No chest deformities or chest wall tenderness. Abdomen: Soft, non-tender, no rigidity. Periumbilical incision well healed Extremities: No deformity, no edema or tenderness, no joint swelling or clubbing. Neurological: Normal cognition and motor skills. Vascular: Radial Pulse Right: Normal - Left: Normal Posterior Tibial Right: Normal - Left: Normal Dorsalis Pedal Right: Normal - Left: Normal Diagnostic tests reviewed for today's visit: Most recent labs Most recent imaging 02/09/22 AAA duplex: IMPRESSION AORTA Aorta is patent . RIGHT VESSELS Common iliac artery plaque noted without evidence of hemodynamically significant stenosis at origin to proximal. Internal iliac artery 50-99% stenosis at origin. External iliac artery is patent at proximal to mid. LEFT VESSELS Common iliac artery is patent . Monophasic flow noted common and external iliac arteries. Internal iliac artery is patent at origin. External iliac artery is patent at proximal to mid. 02/09/22 PVR: IMPRESSION RIGHT SIDE Resting right ankle brachial index: 1.15 Normal ankle brachial index at rest in the right leg. Right ankle: Normal at rest. LEFT SIDE Resting left ankle brachial index: 0.82 Abnormal ankle brachial index at rest diagnostic of peripheral artery disease. Left ankle: Mild disease at rest. IMPRESSION: Ms. Dinero is a 51 year old female with lumbar stenosis, spondylolisthesis, scoliosis and left iliac artery atherosclerosis s/p L4-5 anterior lumbar interbody fusion and left MCKAYLA endarterectomy and thrombectomy. Duplex with RIIA stenosis and monophasic flow in the left common and external iliacarteries. RABI 1.15, LABI 0.82. PLAN and RECOMMENDATIONS: Patient discussed with Dr. Hobson Will have her follow up via virtual visit in [address] Hobson post lumbar instrumented fusion Medical Decision Making: Data: Unique test result(s) reviewed: 2 Discussed management or test w/ external physician/QHCP/source Risk: Low: Low risk from testing/treatment Medical Decision Making Level: 3 - Low SIGNATURE: Missy Thompson APRN.CNP PATIENT NAME: Elsy Dinero DATE: February 14, 2022 TIME: 11:15 AM [facility] Instructions* Patient Instructions* Deirdre Ashley APRN.CNP - 02/11/2022 2:24 PM EDT PATIENT PREOPERATIVE INSTRUCTIONS Ambrose Birch MD has scheduled you for your procedure at this surgery center: [facility]: [phone] --[address] [place] [address]. On your scheduled day of surgery, please report to Patient Registration, ground floor Please read below carefully for your personalized instructions. Dietary Restrictions: - No solid food after midnight. - You may have 12 ounces of clear liquids (water, clear juices such as apple juice or gatorade, carbonated beverages, clear tea, black coffee, jello) until 2 hours before scheduled arrival at facility. No red/purple coloring and no creamer/sugar Medications: Unless instructed differently below, stay on all of your medications until your surgery. Approved medications to take the morning of surgery with a sip of water: Albuterol, Famotidine, Stanley, Gabapentin Do not take Spironolactone day of surgery If you start any new medications after today's visit, please contact the surgeon's office. Blood Thinning Medications: - Stop NSAIDS (Ibuprofen, Advil, Aleve, Motrin, Celebrex, Mobic, etc.) 7 days before surgery, as directed by your surgeon. - Stop Aspirin 7 days before surgery, as directed by your surgeon. - Stop Vitamin E, ALL multi-vitamins, herbals and dietary supplements 7 days before surgery. - You may take Tylenol (Acetaminophen) or any of your pain medications that do not contain aspirin or NSAIDS as needed. Important Reminders: - If you use CPAP/BIPAP, bring the machine with you to the surgery center. - If you are prescribed inhalers for breathing, continue using them. - Candy, mints, and tobacco products are NOT permitted the morning of surgery. - Hearing aids, dentures and glasses may be worn the morning of surgery. - NO jewelry, body piercings, makeup, hairpins or contacts are to be worn the day of surgery. If you develop symptoms such as a fever, cold, or flu, or have other changes to your health within TWO DAYS of scheduled surgery or the morning of surgery, please contact the surgery center above. Personal Belongings: -Please have photo ID and insurance cards. -If you do not have a copy of advance directives on file with us, please bring a copy with you on the day of surgery. - Leave ALL valuables and money at home or with family members. For Outpatient Procedures: - YOU MUST HAVE A RESPONSIBLE NEONATAL PEDIATRIC NURSE TAKE YOU HOME. A DAIRY INSPECTOR OR ITALIAN TUTOR CANNOT BE MADE A RESPONSIBLE NEONATAL PEDIATRIC NURSE. - We recommend that a responsible person stays with you overnight to take care of you. - You cannot stay in a hotel alone after outpatient surgery. You will not be permitted to have yoursurgery, if you do not have someone to take care of you. Arrival Time for Surgery: - The Surgery Center or hospital where you are having surgery will call the afternoon before surgery (or Monday for Monday surgery) with a scheduled arrival time. - If you have not heard by 4 pm, please contact the surgery center above. Please be aware that emergency situations arise, which may delay or change your surgical time. If this happens, we will notify you as soon as possible and regret any inconvenience. If you already have an Advance Directive, please fax a copy to [phone] or email to for it to be added to your chart. If you do not have an Advance Directive, you can find the appropriate form and more information at [email or web address]. We recommend that youcomplete the Advance Directive form found on the website and bring it with you the day of your surgery. It can be witnessed and scanned into your chart that day. Deirdre Ashley APRN.CNP documented in this [facility] History and physical note * Deirdre Ashley APRN.CNP - 02/11/2022 2:22 PM EDT Images from the original note were not included. HISTORY AND PHYSICAL EXAMINATION SERVICE DATE: 02/11/2022 SERVICE TIME: 2:22 PM PRIMARY CARE PHYSICIAN: Elvin Diaz MD REASON FOR VISIT: Elsy Dinero is a 51 year old female who is scheduled for at the request of Dr. Ambrose pérez. My final recommendation will be communicated back to the requesting physicianby way of shared medical record or letter. Subjective The patient has the following: ACTIVE PROBLEM LIST Allergy-Induced Asthma, Mild Intermittent, Uncomplicated Tobacco Use Disorder Prurigo Papule Spinal Stenosis, Lumbar Region With Neurogenic Claudication Facet Arthropathy, Lumbar Chronic Midline Low Back Pain Without Sciatica Acid Reflux Hirsutism Elevated Dehydroepiandrosterone (Dhea) Level Pure Hypercholesterolemia Former Smoker Post-Operative State Thrombosis, Iliac, Artery (Hcc) COVID-19 Immunization Status Overdue - COVID-19 VACCINE (4 - Booster for Moderna series) Overdue since 10/17/2021 06/19/2021 Imm Admin: COVID-19 vaccine, full dose (MODERNA) 09/16/2020 Imm Admin: COVID-19 vaccine, full dose (MODERNA) 08/19/2020 Imm Admin: COVID-19 vaccine, full dose (MODERNA) CHIEF COMPLAINT: Pre-op exam HPI: LR is a 51 yo seen for PAC due to scheduled above surgery because of lumbar spinal stenosis. 01/20/2022 Dr. Eyal Dinero is a 51 year old female who is 2 weeks s/p L4-5 anterior lumbar interbody fusion.There had been a plan to do L3 to ilium instrumented fusion; however, this was aborted. Today, she reports excruciating lower back pain that radiate to her hips. She reports she cannot sit down due to muscle spasms. She sometimes experiences numbness in the left leg. She denies tobacco use. PAIN EVALUATION 01/20/2022 1313 Pain Level: 10 Pain Location: Back-Lower Description: Sharp;Shooting;Stabbing;Tingling;Spasm Duration Amount of Time: 13 Duration Units: Days Frequency: Continuous Intervention/Comfort measure: Medication Comments: pt presents in excruciating pain; reports unable to sit down/up at all; her biggest complaint is the spasms that she is experiencing; wants to see Dr before she condsiders ER Pain Radiation: lower back pain that radiate to her hips Aggravating Factors: Sitting ANTIPLATELET OR ANTICOAGULATION STATUS: No REVIEW OF SYSTEMS: General: No weight loss, malaise or fevers. Neurological: No history of TIA's, stroke, SENIOR NETWORK ENGINEER tumor, impaired sensorium, hemiplegia, paraplegia orquadraplegia. No neurological symptoms or problems. Respiratory: +former smoker 1ppd/35 years Positive for: asthma (albuterol as needed). Negative for: COPD, pneumonia within 6 weeks, tobacco use, URI < 2 weeks and obstructive sleep apnea. Cardiovascular: Positive for: DVT/PE (thrombosis of left iliac ) and hyperlipidemia (statin intolerant) Negative for: anticoagulation therapy, arrhythmia, atrial fibrillation, CAD, chest pain, CHF, congenital heart defect, hypertension, recent MD, murmur/valvular heart disease, open heart surgery and valve surgery. GI: Positive for: GERD (on rx) Negative for: abdominal pain, dysphagia, hepatitis, irritable bowel syndrome, inflammatory bowel disease, liver disease, nausea, vomiting and ETOH >2 drinks/day. : No history of dysuria, frequency or incontinence, stones or chronic kidney disease. No difficulty urinating, nocturia > 1 time per night or hematuria. COOK FRY: Negative for abnormal vaginal bleeding, abnormal vaginal discharge. Endocrine: No history of diabetes. Has not taken steroids within the past 30 days. No history of endocrinological symptoms or problems. Hematology: No history of bleeding or clotting disorder. Patient is not taking anti-coagulation or platelet medications. No history of hematological symptoms or problems. Oncology: No history of CA metastasis, chemo within 30 days, or radiotherapy within 90 days. No history of oncological symptoms or problems. Psych: No history of psychiatric symptoms or problems. Musculoskeletal: SEE HPI Skin: Negative for lesions, rash and itching. 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 PAST SURGICAL HISTORY OF 04/29/2012 excision of back lump SIGMOIDOSCOPY FLX DX W/COLLJ SPEC BR/WA IF PFRMD 09/14/2011 Sigmoidoscopy, flexible FAMILY HISTORY Problem Relation Age of Onset GI Mother colon polyps Cancer Mother Lung/Uterine/ cervical Allergies Mother GI Father colon polyps Diabetes Father Coronary Artery Disease Father Stents Heart Father age 85 Dementia Father No Known Problems Sister No Known Problems Sister Diabetes Brother Kidney Disease Brother dialysis Heart Failure Brother Breast Cancer Maternal Grandmother Allergies Maternal Grandfather Breast Cancer Paternal Grandmother Allergies Paternal Grandmother Diabetes Paternal Grandfather Allergies Daughter Heart Daughter PDA closure Allergies Daughter Social History Tobacco Use Smoking status: Former Smoker Packs/day: 1.00 Years: 40.00 Pack years: 40.00 Types: Cigarettes Smokeless tobacco: Never Used Tobacco comment: started age 13, quit 52 days ago Vaping Use Vaping Use: Never used Substance Use Topics Alcohol use: Not Currently Drug use: Not Currently Comment: experimented in 20s Prior to Admission medications as of 02/11/22 1421 Medication Sig Last Dose Taking diphenhydramine HCl (BENADRYL ORAL) Take by mouth daily at bedtime. Taking Yes methocarbamol (ROBAXIN) 500 mg tablet Take 1 tablet by mouth three times daily for 28 days. Taking Yes gabapentin (NEURONTIN) 300 mg capsule Take 1 capsule by mouth as directed for 30 days. 900 mg at night before bed, 300 mg in the morning and 300 mg in the afternoon Taking Yes sennosides (SENNA ORAL) Take by mouth. Taking Yes fexofenadine (STANLEY ALLERGY) 180 mg tablet Take 180 mg by mouth once daily. Taking Yes spironolactone (ALDACTONE) 50 mg tablet Take 1 tablet by mouth twice daily. Per Dr. Roger Elam, dermatology. Taking Yes triamcinolone acetonide (NASACORT AQ) 55 mcg nasal inhaler Use 2 Sprays in the nose. Taking Yes albuterol sulfate (PROAIR RESPICLICK) 90 mcg/actuation aepb Inhale 2 Puffs as instructed every 4 hours as needed. Taking Yes famotidine (PEPCID ORAL) Take 1 tablet by mouth twice daily. Taking Yes mupirocin (BACTROBAN) 2 % ointment Apply 1/2 Bactroban with a cotton swab to each nostril in the morning and at bedtime starting 5 days prior to surgery. Patient not taking: Reported on 02/11/2022 Not Taking oxyCODONE IR (ROXICODONE) 5 mg immediate release tablet Take 1-2 tablets by mouth every 6 hours as needed for pain. Patient not taking: Reported on 02/11/2022 Not Taking No medication comments found. ALLERGIES Allergen Reactions Prednisone Mental Status Change FEELS LIKE I'M GOING NUTS Zyban [Bupropion] Mental Status Change Suicidal thoughts Animal Hair-Dander * Hives Cats Hives Dogs Hives Niacin Rash, Vomiting Pollen Hives Ciprofloxacin Vomiting States can take if she eats with it. Grass Pollen Intolerance Trees Intolerance Objective PHYSICAL EXAM: General: alert and oriented (x3) and healthy appearance. Pertinent negatives noted - not distressed. Antalgic gait with wheeled walker. Skin: normal color, no rash or lesions. HEENT: EOM intact and pupils equal round. Pertinent negatives noted - no carotid bruit. Cardiovascular: regular rate and rhythm, normal S1 and S2, no rub, murmurs, or gallop. Respiratory: normal breath sounds, no wheezes or crackles. No chest wall deformity or tenderness. Abdomen: soft. Pertinent negatives noted - not tender. Extremities: no deformity, no edema or tenderness, no joint swelling or clubbing. Neurological: normal cognition and motor skills. Gait normal. No weakness or sensory deficit. PAIN ASSESSMENT: Pain Pain Level: 8 Pain Location: Back (Neck) Description: Sharp;Spasm;Throbbing Duration Amount of Time: 1 Duration Units: Months Frequency: Continuous Intervention/Comfort measure: Medication VITALS: BP 134/81 Pulse 64 Temp 97.3 Resp 16 Ht 5' 6 (1.68m) Wt 156 lb (70.8kg) SpO2 100% LMP 03/02/2015 BMI 25.19 kg/(m^2). Diagnostic tests reviewed for today's visit: Lab Value Units Date High Low HB 7.9 g/dL 01/11/2022 15.5 11.5 HCT 23.8 % 01/11/2022 46.0 36.0 WBC 5.88 k/uL 01/11/2022 11.00 3.70 PLT 218 k/uL 01/11/2022 400 150 NA 134 mmol/L 01/10/2022 144 136 K 3.9 mmol/L 01/10/2022 5.1 3.7 GLUC 120 mg/dL 01/10/2022 99 74 BUN 9 mg/dL 01/10/2022 21 7 CREAT 0.68 mg/dL 01/10/2022 0.96 0.58 PTSEC No results within date range. INR No results within date range. APTT No results within date range. ALT 19 U/L 12/13/2021 38 7 AST 16 U/L 12/13/2021 35 13 TBILI 0.2 mg/dL 12/13/2021 1.3 0.2 TSH No results within date range. Lab Value Units Date High Low HCGQT No results within date range. UHCG No results within date range. HCG, BODY* No results within date range. Lab Value Units Date High Low ABORHD No results within date range. ABSCREEN No results within date range. Hemoglobin A1C (%) Date Value 04/21/2015 5.4 Recent Results (from the past 8760 hour(s)) ECG COMPLETE Collection Time: 12/13/21 9:06 AM Result Value Ventricular Rate 67 Atrial Rate 67 P-R Interval 152 QRS Duration 96 QT Interval 422 QTC Calculation ([place]) 445 Calculated P [place] 70 Calculated R [place] 55 Calculated T [place] 42 Impression NORMAL SINUS RHYTHM POSSIBLE LEFT ATRIAL ENLARGEMENT INCOMPLETE RIGHT BUNDLE BRANCH BLOCK BORDERLINE ECG No results found for this or any previous visit (from the past 76767 hour(s)). Assessment Acid reflux Assessment: controlled on rx Allergy-induced asthma, mild intermittent, uncomplicated Assessment: rx as needed Former smoker Assessment: 1ppd/35 years Hirsutism Assessment: on rx Thrombosis, iliac, artery (HCC) Assessment: status post partial anterior lumbar spinal fusion 01/07/2022 surgery was aborted due to occlusion of her left common iliac artery, necessitating endarterectomy. Pt has an appt 02/14/2022 with vascular for pre-op clearance/follow up. Pure hypercholesterolemia Assessment: statin intolerant Barrett Activity Status Index: METS: Walk indoors, such as around the house (1.75 METs) Do light work around the house, such as dusting or washing dishes (2.70 METs) Take care of self; that is eating, dressing, bathing, using the toilet (2.75 METs) Walk a block or two on level ground (2.75 METs) DASI Score: 9.95 Patient denies any chest pain or undue shortness of breath with the above physical activity. Clinical Frailty Scale: 3. Well, with treated comorbid disease STOP-Bang Score: Patient over 50 years old Denies snoring loudly Denies feeling tired, fatigued, or sleepy during the daytime Has not been observed to stop breathing or choking/gasping during sleep Denies having high blood pressure BMI less than or equal to 35 kg/m^2 Does not have a large neck Non-male patient STOP-Bang Score: 1 [id number] Score: Age: <65 Sex: female CHF history: No Hypertension history: No Stroke/TIA/thromboembolism history: Yes Vascular disease history: No Diabetes history: No [id number] Score: 3 ARISCAT Score: Age: 51-80 Preoperative SpO2: >=96% Respiratory infection in the last month: No Preoperative anemia: No Surgical incision: peripheral Duration of surgery: <2 hrs Emergency procedure: No ARISCAT Score: 3 ASA Class: 2 ANESTHESIA FINDINGS: Intubation History: No history of difficult intubation Significant Anesthesia Considerations: none Airway History: No history of difficult airway I - PHYSICAL EVALUATION AIRWAY Tracheostomy tube not present Mallampati: II. TM distance: >3 FB. Neck ROM: full ROM without neurological symptoms. Mouth opening: adequate. Short neck: no. Thick neck: no DENTAL Dental findings: teeth intact. Additional comments: Implant/side [place]/back. II - ANESTHESIA PLAN ASA Score: 2 Anesthetic Plan: other Anesthetic plan additional comments: *PACC/TCI - anesthesia choice. Informed Consent Anesthetic risks, benefits, alternatives, personnel and consent discussed: yes. Patient / Responsible Republican agrees to proceed: yes Patient / Surrogate agrees to blood products: Yes Prepared for Surgery: optimally prepared for surgery, pending (see comment). Labs and COVID CONSULTS: Patient does not require consults for optimization at this time Planned Anesthetic: other The Following Tests/Procedures Have Been Initiated: Orders Placed This Encounter >CBC + AUTO DIFF Standing Status: Future Number of Occurrences: 1 Standing Expiration Date: 04/13/2022 >CMP Standing Status: Future Number of Occurrences: 1 Standing Expiration Date: 04/13/2022 Type and Screen, 30 day Standing Status: Future Number of Occurrences: 1 Standing Expiration Date: 04/13/2022 Order Specific Question: [facility] Surgery or Procedure: Answer: [facility] diphenhydramine HCl (BENADRYL ORAL) Sig: Take by mouth daily at bedtime. Instructions Given to Patient: Instructions located in the after visit summary. Patient given verbal and written preop instructions and voices comprehension and compliance. SIGNATURE: Deirdre Ashley APRN.CNP PATIENT NAME: Elsy Dinero DATE: February 11, 2022 TIME: 2:22 PM PAGER/CONTACT #: documented in this encounterKeenan Private Hospital07-06-2022 Miscellaneous Notes* Telephone Encounter - Amaya Juárez RN - 02/09/2022 3:12 PM EDT Letter printed and faxed to number provided. Informed pt via call. Mailed copy to patient. * Telephone Encounter - Becky Sun PA-C - 02/09/2022 2:27 PM EDT Letter written and posted to [employer]. * Telephone Encounter - Amaya Juárez RN - 02/09/2022 2:01 PM EDT Message sent to [facility] [place] to create a letter. * Telephone Encounter - Elsy Adalberto Liz - 02/09/2022 1:15 PM EDT Patient at [phone] is requesting a letter stating she had complications from her 01/07 surgery and is having surgery again on 02/23 and to give an estimated time to RTW. She wants this faxed to [facility] Attn: Dina Poon at [phone]. And she needs it done prior to the provider's return fromvacation, or she will lose her job. She wants a [facility] documented in this encounterKeenan Private Hospital06-27-2022 Miscellaneous Notes* Telephone Encounter - Gee Lira RN - 01/31/2022 3:15 PM EDT Spoke with patient who states the following: - Pain to the lower back that is 8/10 and constant at varying degrees of pain. - She stopped taking her Oxycodone early on as she has a h/o alcoholism and didn't want to become dependent on this. When she was on it, it caused constipation so she stopped. - She has been taking Methocarbamol TID and took her last one last evening. Taking the edge off. - states that she cannot sit with out being in pain. Please advise on whether she can have a script for Methocarmamol to take TID and/or if there is something else she can take for pain. * Telephone Encounter - Alexandra Redmond - 01/31/2022 11:46 AM EDT Pending Prescriptions Disp Refills METHOCARBAMOL 500 MG TABLET 42 tablet 1 Sig: Take 1 tablet by mouth three times daily as needed (for muscle spasms) for up to 28 days. LARISSA: No Patient called to state that pharmacy wont refill it till 02/22 and she cannot wait that long. She states that she is not taking the oxycodone anymore and she has been taking the Methocarbamol 3x everyday. She states that the pharmacy told her if her prescription did not say as needed that they can refill is sooner. Please advice documented in this encounterKeenan Private Hospital06-24-2022 Miscellaneous Notes* Telephone Encounter - Renetta Chi - 01/28/2022 1:39 PM EDT Images from the original note were not included. Relayed the following message to patient: Drew Hobson MD You; Radha Allen RN 2 hours ago (11:33 AM) We can just offer her the appointments. Tell her that I am limited in how I can help her over the phone. Thanks Ed Message text Patient states she'd like to see Dr. Hobson after her next scheduled surgery on 02/23/[address] Birch. Spoke to Dr. Hobson and he verbally states that patient should be seen in person sooner rather than later. Patient verbalized frustration and stated to me to keep her scheduled appointment and she'll see what she can do to make the appointment. * Telephone Encounter - Renetta Chi - 01/28/2022 10:30 AM EDT Spoke to patient regarding the information below: Dr. Hobson would like this patient rescheduled to see him, not Kristine. Thank you, Radha Message text Patient states she will not be able to tolerate the car ride for her OV scheduled on 02/14/22. Patient states it's too painful to sit in a car for an extended period of time. Patient asking if her OV can be converted into a virtual visit. * Telephone Encounter - Lili Dee RN - 01/26/2022 3:34 PM EDT She scheduled for testing on a day when Kristine is in office. Are you Good with her seeing Kristine? * Telephone Encounter - Lili Dee RN - 01/26/2022 2:45 PM EDT S/P ANTERIOR EXPOSURE OF SPINE AMD MOBILATION OF AORTA Bruce Received message that pt states That she wanted to shoot herself After being told she cannot take any meds Prior to abd aorta US. Spoke with pt who expressed frustration with amount Of pain she is in when she moves. Advised that she can take Her pain med in a.m. with small sip of water She verbalizes understanding And admits to being frustrated but does not want To harm herself or anyone else. All questions answered Lili Dee RN * Telephone Encounter - Estrellita Franklin - 01/26/2022 2:13 PM EDT Pt is in extreme pain, can she switch her office visit to phone? documented in this encounterKeenan Private Hospital06-22-2022 Miscellaneous Notes* Telephone Encounter - Elvin Diaz MD - 01/26/2022 4:19 PM EDT Noted. * Telephone Encounter - Kamala Hudson RN - 01/21/2022 3:37 PM EDT Daina with [facility] calling to report to provider that patient missed one appt this week due to having another appt.. No call back needed. Thank you. documented in this encounterKeenan Private Hospital06-16-2022 Miscellaneous Notes* [facility] - RT Florin(R) - 01/20/2022 9:00 PM EDT Radiology Service Progress Note PATIENT NAME: Elsy Dinero DATE OF SERVICE: January 20, 2022 TIME: 2:58 PM PATIENT IDENTITY VERIFICATION COMPLETED USING TWO (2) IDENTIFIERS: Name and Date of confirmedby patient verbally. FALL SCREENING: Has the patient had 2 falls in the last year or 1 fall with injury or currently using an Ambulatory Assistive Device (Walker, Cane, Wheelchair, Crutches, etc.)? No PATIENT GENDER DATA: Female. status: : No status: NO. PATIENT RELEVANT IMPLANT DATA REVIEWED: Not Applicable RADIOLOGY DEPARTMENT: General X-ray: Exam(s) Completed: Spine X-Ray(s): Lumbar AP / LAT PERIPHERAL IV DATA: Not applicable SIGNED BY: RT Florin(R) January 20, 2022 2:58 PM documented in this encounterKeenan Private Hospital06-16-2022 History of Present illness Narrative* Elvin Diaz MD - 01/20/2022 7:18 PM EDT This note was created using Betty[employer]. Subjective Elsy Dinero is a 51 year old female here with her sister. She is status post partial anteriorlumbar spinal fusion. 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 She saw Dr. Birch today. She had significant low back pain when upright and ambulation was still very limited. Best relief was lying down. Physical therapy was starting but she was waiting on the hospital bed so she can do all recuperation on the ground floor. I signed for the DME order yesterday. She stopped smoking. Review of Systems ACTIVE PROBLEM LIST Allergy-Induced Asthma, Mild Intermittent, Uncomplicated Tobacco Use Disorder Prurigo Papule Spinal Stenosis, Lumbar Region With Neurogenic Claudication Facet Arthropathy, Lumbar Chronic Midline Low Back Pain Without Sciatica Acid Reflux Hirsutism Elevated Dehydroepiandrosterone (Dhea) Level Pure Hypercholesterolemia Former Smoker Post-Operative State Current Outpatient Medications Medication Sig sennosides (SENNA ORAL) Take by mouth. oxyCODONE IR (ROXICODONE) 5 mg immediate release tablet Take 1-2 tablets by mouth every 6 hours as needed for pain. acetaminophen (TYLENOL) 325 mg tablet Take 3 tablets by mouth every 8 hours for 14 days. methocarbamol (ROBAXIN) 500 mg tablet Take 1 tablet by mouth three times daily as needed (for muscle spasms) for up to 28 days. gabapentin (NEURONTIN) 300 mg capsule Take 1 capsule by mouth as directed for 30 days. 900 mg at night before bed, 300 mg in the morning. fexofenadine (STANLEY ALLERGY) 180 mg tablet Take 180 mg by mouth once daily. spironolactone (ALDACTONE) 50 mg tablet Take 1 tablet by mouth twice daily. Per Dr. Roger Elam, dermatology. triamcinolone acetonide (NASACORT AQ) 55 mcg nasal inhaler Use 2 Sprays in the nose. albuterol sulfate (PROAIR RESPICLICK) 90 mcg/actuation aepb Inhale 2 Puffs as instructed every 4 hours as needed. famotidine (PEPCID ORAL) Take 1 tablet by mouth twice daily. No current facility-administered medications for this visit. Objective BP 130/74 (BP Site: Left Arm, BP Position: Sitting, BP Cuff Size: Large Adult) Pulse 80 Temp 36.2 C (97.1 F) (Temporal Artery) Resp 16 LMP 03/02/2015 Physical Exam Constitutional: General: She is not in acute distress. Appearance: She is not ill-appearing or diaphoretic. Comments: Comfortable lying down on table. Cardiovascular: Rate and Rhythm: Normal rate and regular rhythm. Pulses: Normal pulses. Heart sounds: No murmur heard. No gallop. Pulmonary: Breath sounds: Normal breath sounds. Abdominal: Palpations: Abdomen is soft. Musculoskeletal: Right lower leg: No edema. Left lower leg: No edema. Skin: General: Skin is warm and dry. Neurological: General: No focal deficit present. Mental Status: She is alert. Sensory: No sensory deficit. Motor: No weakness. Comments: Ambulates from wheelchair to table. Psychiatric: Mood and Affect: Mood normal. Assessment and Plan 1. Post-operative state - ICD9: V45.89, ICD10: Z98.890 (primary diagnosis) Incentive spirometry. 2. Spinal stenosis, lumbar region with neurogenic claudication - ICD9: 724.03, ICD10: M48.062 Per neurosurgery. 3. S/P lumbar spinal fusion - ICD9: V45.4, ICD10: Z98.1 Per neurosurgery. PT order given. Hospital bed requisition signed. 4. History of recent vascular procedure - ICD9: V45.89, ICD10: Z98.890 Continue to abstain from smoking. Risks of general atherosclerosis and other vascular events were discussed. Revisit cholesterol lowering 5. Pure hypercholesterolemia - ICD9: 272.0, ICD10: E78.00 We agreed to revisit cholesterol lowering medication in the near future. Elvin Diaz MD documented in this encounterKeenan Private Hospital06-16-2022 History of Present illness Narrative* Ambrose Birch MD - 01/20/2022 1:15 PM EDT SPINE SURGERY FOLLOW UP SERVICE DATE: 01/20/2022 SURGERY DATE: 01/07/2022 Elsy Dinero is a 51 year old female who is 2 weeks s/p L4-5 anterior lumbar interbody fusion.There had been a plan to do L3 to ilium instrumented fusion; however, this was aborted. Today, she reports excruciating lower back pain that radiate to her hips. She reports she cannot sit down due to muscle spasms. She sometimes experiences numbness in the left leg. She denies tobacco use. PAIN EVALUATION 01/20/2022 1313 Pain Level: 10 Pain Location: Back-Lower Description: Sharp;Shooting;Stabbing;Tingling;Spasm Duration Amount of Time: 13 Duration Units: Days Frequency: Continuous Intervention/Comfort measure: Medication Comments: pt presents in excruciating pain; reports unable to sit down/up at all; her biggest complaint is the spasms that she is experiencing; wants to see Dr before she condsiders ER Pain Radiation: lower back pain that radiate to her hips Aggravating Factors: Sitting ANTIPLATELET OR ANTICOAGULATION STATUS: No Patient Entered Questionnaires Spine Questions 04/27/2021 06/10/2021 12/20/2021 Pain Location: Lower back Lower back Lower back Pain Duration: More than 5 years - - Symptoms from neck/cervical spine: No No No Employment Status: - - Working now Involved in law suit/legal claim: - - No Spine Red Flags 04/27/2021 Any type of cancer: No Unexplained fever: No Bowel or bladder disfunction: Yes Unintentional weight loss: No Osteoporosis: No PROMIS Score Percentiles Physical Health 04/27/2021 06/10/2021 12/20/2021 Physical Function Percentile 3 2 2 Sleep Percentile 4 4 21* Fatigue Percentile 14 1 4 Pain Interference Percentile 1 1 4 PROMIS SOCIAL ROLE SCORE 04/27/2021 06/10/2021 12/20/2021 Social Role Satisfaction Percentile 10 8 18* PROMIS Global Health Scale 05/17/2016 04/27/2021 12/20/2021 Physical Health Percentile 7 4 2 Mental Health Percentile 26* 43 13 Percentiles provide an indication of how the patient's score ranks in relation to the general population. Higher percentile rankings indicate better function/quality of life. 50th percentile is the average of the general population and indicates half of respondents had a worse score. Depression Screening: PHQ-9 04/27/2021 06/10/2021 12/20/2021 Score 9 10 10 PHQ-9 Self-harm Question 04/27/2021 06/10/2021 12/20/2021 Thoughts that you would be better off , or of hurting yourself in some way 0 0 0 PHQ-9 Self-Harm (Item 9) response options: 0 Not at all 1 Several days 2 More than half the days 3 Nearly every day PHQ-9 Levels: 0-4 No to mild depression 5-9 Mild depression 10-14 Moderate depression 15-19 Moderately severe depression 20-27 Severe depression PHYSICAL EXAM: BP 129/74 (BP Site: Left Arm, BP Position: Sitting, BP Cuff Size: Regular Adult) Pulse 70 Temp (!) 35.8 C (96.4 F) (Temporal) LMP 03/02/2015 GENERAL APPEARANCE: Well nourished, well developed, and no apparent distress. NEURO PSYCH: Patient oriented to person, place, and time. Mood pleasant. Benign affect. MUSCULOSKELETAL: incision healthy VISUAL INSPECTION CERVICAL: WNL THORACIC: WNL LUMBAR: WNL MOTOR: 5/5 in all muscle groups. SENSORY: Normal sensory exam GAIT: Normal. DATA REVIEW [facility] records independently reviewed Imaging and outside records independently reviewed Images independently reviewed with the patient XR LUMBAR LIMITED 2V AP/LAT 01/12/2022 IMPRESSION: Post-surgical changes, as described. No acute abnormality. ASSESSMENT/PLAN 51 year old female 2 weeks s/p L4-5 anterior lumbar interbody fusion. She reports excruciating lower back pain. Discussed surgical interventions. Elsy Barrazaregancollin is clinically indicated and wishes to pursue L2-ilium instrumented fusion, iliac screws, L2-3, L3-4, L5-S1 TLIF. The risks, benefits, and anticipated outcomes of the procedure/treatment/test, the alternatives to the procedure/treatment/test and their risks and benefits, and the roles and tasks of the personnel to be involved were discussed with the patient or the patient s personal pharmacy services representative. The patient has elected to schedule surgery at this time or intends to call the office with a surgical date. Shared decision making occurred while obtaining informed consent. 1. Imaging: Lumbar X-Ray 2. Follow up: post op I spent a total of 15 minutes on the date of the service which included preparing to see the patient, [id number] patient care, completing clinical documentation, obtaining and/or reviewing separately obtained history, performing a medically appropriate examination, counseling and educating the pat ient/family/caregiver and ordering medications, tests, or procedures. This patient is seen and assessed by Dr. Ambrose Birch. Scribed by Caroline Santoyo. January 20, 2022 SIGNATURE: Ambrose Birch MD PATIENT NAME: Elsy Dinero DATE: January 20, 2022 TIME: 11:41 AM PAGER: documented in this encounterKeenan Private Hospital06-16-2022 Miscellaneous Notes* Telephone Encounter - Dianna Godoy LPN - 01/20/2022 10:09 AM EDT Left response on identified vm for [employer]. Let River know signed orders were faxed thisam. Dianna Godoy LPN * Telephone Encounter - Elvin Diaz MD - 01/19/2022 6:17 PM EDT Greg PT. I signed form from [email or web address] [facility]) [address] [place] [address] . Mathematical Scientist Cornelio Bliss. 1) Semi electric hospital bed, gel overaly, 2) standard mattress, 3) gel overlay, 4) half bedrails,5) overnight oximetry testing up to 6 times per year. Start date 01/17/2022 * Telephone Encounter - Kamala Hudson RN - 01/17/2022 1:58 PM EDT River, a physical therapist with [facility] calling to report plan of care for patient. Patient recently discharged from [facility] after lumbar surgery and endarterectomy. PT would like to see patient 1 time per week for 8 visits, if provider agreeable. River also requesting a hospital bed order for patient. (order pended but needs diagnosis) Please call River with orders at [phone]. Thank you. documented in this encounterKeenan Private Hospital06-14-2022 Miscellaneous Notes* Telephone Encounter - Dina Clark RN - 01/18/2022 1:38 PM EDT Order mailed * Telephone Encounter - Delia Dee Pss - 01/18/2022 11:35 AM EDT Patient called stating she is waiting for a hospital bed order to be sent to her. Patient can be reached at [phone] documented in this encounterKeenan Private Hospital06-02-2022 Miscellaneous Notes* Telephone Encounter - Kashmir Lamar, Research Coordinator - 01/06/2022 11:00 AM EDTSummary: IRB# [id number] Research Outreach IRB # [id number] Tight perioperative blood pressure management to reduce serious cardiovascular, renal,and cognitive complications: The GUARDIAN trial PI: Eriberto Gonzalez MD, AGUILA, FASA. Outcomes Research Department. Anesthesia [place]. [facility]. This is a research study note. Patient assessments recorded here should not guide either clinical care or clinical decision-making. I spoke with Elsy Dinero regarding eligibility for the Guardian study. The background, rationale, hypotheses, study related procedures, known risks, potential benefits, and alternatives to research participation were discussed at length per the study phone script. Patient will consider participating in the study. She would like to read the study related materials as she wants to know more details about the study. I have confirmed that the e-mail address on file is her current one; she agrees to receive study related materials there and we will send the informed consent today. Kashmir Arguello MD Anesthesiology [place] Outcomes Research Department Research Fellow [facility] documented in this encounterKeenan Private Hospital05-17-2022 Miscellaneous Notes* Telephone Encounter - Gee Lira RN - 12/21/2021 9:30 AM EDT Spoke with patient and informed that she may go to any [facility] lab to have her nicotine level drawn. Reviewed some post op restrictions following surgery . Not other questions. * Telephone Encounter - Gee Lira RN - 12/21/2021 8:[address] Birch, Please call patient. She needs a second nicotine test and does not know how to schedule. Please also see what other questions she has. She is very flustered. Order for Nicotine level placed, pended and routed for review/filing. documented in this encounterKeenan Private Hospital05-11-2022 Miscellaneous Notes* Telephone Encounter - Dina Clark RN - 12/15/2021 3:52 PM EDT Spoke to Elsy all questions answered. * Telephone Encounter - Elsy Glover Sec - 12/15/2021 3:04 PM EDT Patient at [phone] is requesting a call back from the nurse to discuss rehab or senior living after her 6/3 surgery. She is overwhelmed and needs some guidance. documented in this encounterKeenan Private Hospital04-15-2022 Miscellaneous Notes* Telephone Encounter - Dina Clark RN - 11/19/2021 8:20 AM EDT Forms reviewed & signed faxed to number provided Copy to onbase Original to pt * Telephone Encounter - Lillie Morgan - 11/18/2021 1:39 PM EDT Patient calling asking once the paperwork have been completed, she is asking that we send a copy toher home address. * Telephone Encounter - Tamara Thakur - 11/16/2021 2:43 PM EDT Forms completed. At nurse desk awaiting signature. * Telephone Encounter - Delia Montemayor - 11/16/2021 2:04 PM EDT Received FMLA forms by fax from patient. Scanned to patient's chart for provider to review. documented in this encounterKeenan Private Hospital04-11-2022 History of Present illness Narrative* Drew Hobson MD - 11/15/2021 3:15 PM EDT Images from the original note were not included. [facility] V[facility] [place] DEPARTMENT OF VASCULAR SURGERY OUTPATIENT VISIT DATE November 15, 2021 OUTPATIENT VISIT TYPE CONSULTATION SERVICE DATE: 11/15/2021 SERVICE TIME: 3:16 PM PRIMARY CARE PHYSICIAN: Elvin Diaz MD REFERRING PROVIDER: Ambrose Birch [id number] [id number] [facility] [id number] Consult requested for an opinion regarding the evaluation and treatment of the above. My final impression and recommendations will be communicated back to the requesting physician by way of the shared medical record or letter via US mail. CHIEF COMPLAINT: Back pain and RLE pain HISTORY OF PRESENT ILLNESS: Vascular consultation at the request of Dr. Ambrose Birch. A copy of this consultation note will beprovided to the requesting physician by way of shared Medical record or letter to requesting physician via US mail. Ms. Dinero is a 51 year old female who is seen today for future spine exposure with plan per Dr. Birch of L4-5 and L5-S1 ALIF. She has a h/o alcohol abuse. She has no h/o prior abdominal surgery. 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 Vaping Use Vaping Use: Never used Substance Use Topics Alcohol use: Not Currently Drug use: Not Currently Comment: experimented in 20s FAMILY HISTORY Problem Relation Age of Onset GI Mother colon polyps Cancer Mother Lung/Uterine/ cervical Allergies Mother GI Father colon polyps Diabetes Father Coronary Artery Disease Father Stents Heart Father age 85 Dementia Father No Known Problems Sister No Known Problems Sister Diabetes Brother Kidney Disease Brother dialysis Heart Failure Brother Breast Cancer Maternal Grandmother Allergies Maternal Grandfather Breast Cancer Paternal Grandmother Allergies Paternal Grandmother Diabetes Paternal Grandfather Allergies Daughter Heart Daughter PDA closure Allergies Daughter MEDICATIONS: [START ON 12/31/2021] mupirocin (BACTROBAN) 2 % ointment Apply 1/2 ointment with a cotton swab in each nostril 2x daily for five days preop gabapentin (NEURONTIN) 300 mg capsule 2 caps qhs, 1 in am fexofenadine (STANLEY ALLERGY) 180 mg tablet Take 180 mg by mouth once daily. spironolactone (ALDACTONE) 50 mg tablet Take 1 tablet by mouth twice daily. Per Dr. Roger Elam, dermatology. ibuprofen (MOTRIN) 200 mg tablet Take 4 tablets by mouth twice daily. triamcinolone acetonide (NASACORT AQ) 55 mcg nasal inhaler Use 2 Sprays in the nose. albuterol sulfate (PROAIR RESPICLICK) 90 mcg/actuation aepb Inhale 2 Puffs as instructed every 4 hours as needed. famotidine (PEPCID ORAL) Take 1 tablet by mouth twice daily. ALLERGIES: ALLERGIES Allergen Reactions Prednisone Mental Status Change FEELS LIKE I'M GOING NUTS Zyban [Bupropion] Mental Status Change Suicidal thoughts Animal Hair-Dander * Hives Cats Hives Dogs Hives Niacin Rash, Vomiting Pollen Hives Ciprofloxacin Vomiting States can take if she eats with it. Grass Pollen Intolerance Trees Intolerance REVIEW OF SYSTEM: Constitutional: No weight loss, malaise or fevers. HEENT: Negative for frequent or significant headaches Respiratory: Negative for cough, wheezing, or shortness of breath Cardiovascular: Negative for chest pain, leg swelling or palpitations Gatrointestinal: Negative for abdominal discomfort, blood in stools or black stools or change in bowel habits Genitourinary: No history of dysuria, frequency, or incontinence Musculoskeletal: Positive for See HPI Endocrine: Negative for cold or heat intolerance, polyuria, polydipsia and goiter Hematology/Lymphatic: Negative for prolonged bleeding, bruising easily or swollen nodes Neurologic: No history or headaches, syncope, paralysis, seizures or tremors Integumentary: Negative for lesions, rash, and itching. PHYSICAL EXAM: VITALS: BP 130/63 Pulse 74 Ht 5' 6 (1.68m) Wt 156 lb (70.8kg) LMP 03/02/2015 BMI 25.19 kg/(m^2). General: Alert and oriented Integumentary: Normal color, no rash, no lesions. HEENT: EOM, pupils equal, round and reactive. Cardiovascular: Pulse regular. Lungs: No chest deformities or chest wall tenderness. Abdomen: Soft, non-tender, no rigidity. Extremities: No deformity, no edema or tenderness, no joint swelling or clubbing. Neurological: Normal cognition and motor skills. Vascular: Radial Pulse Right: Normal - Left: Normal Posterior Tibial Right: Normal - Left: Normal Dorsalis Pedal Right: Normal - Left: Normal Diagnostic tests reviewed for today's visit: Most recent labs Most recent imaging IMPRESSION: Ms. Dinero is a 51 year old female with future back surgery for back and RLE pain. PLAN and RECOMMENDATIONS: 4-5 5-1 ALIF SIGNATURE: Fer Hobson MD PATIENT NAME: Elsy Dinero DATE: November 15, 2021 TIME: 3:16 PM documented in this encounter[facility] Miscellaneous Notes* Telephone Encounter - Renetta Chi - 11/05/2021 1:00 PM EDT Patient returns call and scheduled with OV. Reminder sent via mail. * Telephone Encounter - Renetta Chi - 11/05/2021 10:52 AM EDT Images from the original note were not included. Left voicemail with call back number regarding below message: MD Ambrose Lee MD; [facility] [employer] [facility], Please set up an OV with me no testing for preoperative evaluation for spine exposure. Thanks Ed documented in this encounterKe[facility]04[facility]22 History of Present illness Narrative* Amaya Juárez RN - 11/05/2021 11:53 AM EDT Neuro SPINE CARE COORDINATION PRE-OP VISIT Spoke with patient on the phone for pre op education. Given both written and verbal instructions re: Skin prep, wound care, pain management and post op restrictions. Provided to patient: [facility] Surgery Guide, skin prep supplies, Spine Surgery Pre/post op education packet. Yes. Reviewed with patient to report to [place] surgery desk for surgery ? Yes. Reviewed with the patient she will be called the day before to get surgery report time? Yes. Patient aware eat nothing after midnight prior to surgery, clear liquids only until 2 hours before report time. Yes. Patient aware surgery will be INPATIENT. Discussed care post discharge : Self care. Does patient have transportation to and from surgery ? Yes. Falls Education provided ? Yes Nasal swab obtained ? No. Patient instructed in mupirocin treatment : Prescription called to pharmacy. Questions answered and patient did voice(s) understanding via teach back. Amaya Juárez RN Neuro SPINE CARE COORDINATION SURGERY SCHEDULING Patient accepts surgery date of 01/07/[address] Birch. Planned procedure is L4-5, L5-S1 ALIF, L3-ilium fusion. [facility] will be scheduled with patient. [employer] : will call pt to complete by phone Medications reviewed : Yes. Meds to be stopped prior to surgery : NSAIDS, ASA and Vitamins and supplements. Additional pre op clearances needed : none. Any implanted devices : No. Transplant History No . Patient will get optimization lab work : At [facility]. Questions answered. Patient verbalizes understanding via teach back. Additional comments : COVID test. Preoperative Needs Assessment Age >70 or Anticipated LOS > 5 days: No Lives alone/minimal assist available at home or Difficulty taking care of self: No Significant home social issues or Current history or past history of substance abuse: No Wheelchair baseline, Homebound baseline, Significant gait instability, or History of significant falls: No Thora/lumbar fusion any level planned or 2+ level posterior cervical fusion planned: Yes Myelopathic or Spine tumor: No Probability of non-home discharge disposition : Low [0] Amaya Juárez RN documented in this encounterKe[facility]03-28-[facility]22 Miscellaneous Notes* Telephone Encounter - Osmani Chang RN - 11/01/2021 9:54 AM EDT Spoke with patient and discussed that nicotine/cotinine test has not been completed yet. Informed we cannot schedule until this test has been completed and will need to be at least 4 weeks after passing that test. Patient verbalized understanding and states she will complete the lab work this Monday. * Telephone Encounter - SONDRA Hayes - 11/01/2021 9:03 AM EDT Patient called, states she is ready to schedule surgery and would like to know what days are available to schedule. Patient has to notify her job. Please call patient at . documented in this encounterKe[facility]10-08-[facility]21 History of Present illness Narrative* Rachna Palm RT(R) - 05/14/2021 2:30 PM EDT Radiology Service Progress Note PATIENT NAME: Elsy Dinero DATE OF SERVICE: May 14, 2021 TIME: 2:38 PM PATIENT IDENTITY VERIFICATION COMPLETED USING TWO (2) IDENTIFIERS: Name and Date of confirmedby patient verbally. FALL SCREENING: Has the patient had 2 falls in the last year or 1 fall with injury or currently using an Ambulatory Assistive Device (Walker, Cane, Wheelchair, Crutches, etc.)? No PATIENT GENDER DATA: Female. status: : No status: NO. PATIENT RELEVANT IMPLANT DATA REVIEWED: Not Applicable RADIOLOGY DEPARTMENT: General X-ray: Exam(s) Completed: Spine X-Ray(s): Lumbar AP / LAT / L5-S1 PERIPHERAL IV DATA: Not applicable SIGNED BY: RT Gayatri(R) May 14, 2021 2:38 PM documented in this encounterKe[facility]02[facility] History of Past illness Narrative* Problem Noted Date Resolved Date Low back pain 09/14/2015 05/17/2016 Chronic pain 09/14/2015 05/17/2016 Neurodermatitis 04/22/2013 06/23/2021 Eczematous dermatitis 04/22/2013 06/23/2021 Pyoderma, unspecified 04/22/2013 09/16/2019 Impetigo 04/22/2013 09/16/2019 Pruritus 04/22/2013 09/16/2019 Excoriation 04/22/2013 09/16/2019 Lichenification and lichen simplex chronicus 06/23/2021 Xerosis cutis 04/22/2013 09/16/2019 Duodenitis 09/14/2011 06/23/2021 Acute gastritis without mention of hemorrhage 06/23/2021 Cough 05/30/2006 09/16/2019 Other acne 04/08/2005 09/16/2019 Other specified endocrine disorders 04/08/2005 09/16/2019 documented as of this encounter (statuses as of 11/01/2021) [facility] Narrative* Problem Noted Date Resolved Date Low back pain 09/14/2015 05/17/2016 Chronic pain 09/14/2015 05/17/2016 Neurodermatitis 04/22/2013 06/23/2021 Eczematous dermatitis 04/22/2013 06/23/2021 Pyoderma, unspecified 04/22/2013 09/16/2019 Impetigo 04/22/2013 09/16/2019 Pruritus 04/22/2013 09/16/2019 Excoriation 04/22/2013 09/16/2019 Lichenification and lichen simplex chronicus 06/23/2021 Xerosis cutis 04/22/2013 09/16/2019 Duodenitis 09/14/2011 06/23/2021 Acute gastritis without mention of hemorrhage 06/23/2021 Cough 05/30/2006 09/16/2019 Other acne 04/08/2005 09/16/2019 Other specified endocrine disorders 04/08/2005 09/16/2019 documented as of this encounter (statuses as of 11/01/2021) [facility] Narrative* Problem Noted Date Resolved Date Low back pain 09/14/2015 05/17/2016 Chronic pain 09/14/2015 05/17/2016 Neurodermatitis 04/22/2013 06/23/2021 Eczematous dermatitis 04/22/2013 06/23/2021 Pyoderma, unspecified 04/22/2013 09/16/2019 Impetigo 04/22/2013 09/16/2019 Pruritus 04/22/2013 09/16/2019 Excoriation 04/22/2013 09/16/2019 Lichenification and lichen simplex chronicus 06/23/2021 Xerosis cutis 04/22/2013 09/16/2019 Duodenitis 09/14/2011 06/23/2021 Acute gastritis without mention of hemorrhage 06/23/2021 Cough 05/30/2006 09/16/2019 Other acne 04/08/2005 09/16/2019 Other specified endocrine disorders 04/08/2005 09/16/2019 documented as of this encounter (statuses as of 11/05/2021) [facility] Narrative* Problem Noted Date Resolved Date Low back pain 09/14/2015 05/17/2016 Chronic pain 09/14/2015 05/17/2016 Neurodermatitis 04/22/2013 06/23/2021 Eczematous dermatitis 04/22/2013 06/23/2021 Pyoderma, unspecified 04/22/2013 09/16/2019 Impetigo 04/22/2013 09/16/2019 Pruritus 04/22/2013 09/16/2019 Excoriation 04/22/2013 09/16/2019 Lichenification and lichen simplex chronicus 06/23/2021 Xerosis cutis 04/22/2013 09/16/2019 Duodenitis 09/14/2011 06/23/2021 Acute gastritis without mention of hemorrhage 06/23/2021 Cough 05/30/2006 09/16/2019 Other acne 04/08/2005 09/16/2019 Other specified endocrine disorders 04/08/2005 09/16/2019 documented as of this encounter (statuses as of 11/08/2021) [facility] Narrative* Problem Noted Date Resolved Date Low back pain 09/14/2015 05/17/2016 Chronic pain 09/14/2015 05/17/2016 Neurodermatitis 04/22/2013 06/23/2021 Eczematous dermatitis 04/22/2013 06/23/2021 Pyoderma, unspecified 04/22/2013 09/16/2019 Impetigo 04/22/2013 09/16/2019 Pruritus 04/22/2013 09/16/2019 Excoriation 04/22/2013 09/16/2019 Lichenification and lichen simplex chronicus 06/23/2021 Xerosis cutis 04/22/2013 09/16/2019 Duodenitis 09/14/2011 06/23/2021 Acute gastritis without mention of hemorrhage 06/23/2021 Cough 05/30/2006 09/16/2019 Other acne 04/08/2005 09/16/2019 Other specified endocrine disorders 04/08/2005 09/16/2019 documented as of this encounter (statuses as of 11/15/2021) [facility]ative* Problem Noted Date Resolved Date Low back pain 09/14/2015 05/17/2016 Chronic pain 09/14/2015 05/17/2016 Neurodermatitis 04/22/2013 06/23/2021 Eczematous dermatitis 04/22/2013 06/23/2021 Pyoderma, unspecified 04/22/2013 09/16/2019 Impetigo 04/22/2013 09/16/2019 Pruritus 04/22/2013 09/16/2019 Excoriation 04/22/2013 09/16/2019 Lichenification and lichen simplex chronicus 06/23/2021 Xerosis cutis 04/22/2013 09/16/2019 Duodenitis 09/14/2011 06/23/2021 Acute gastritis without mention of hemorrhage 06/23/2021 Cough 05/30/2006 09/16/2019 Other acne 04/08/2005 09/16/2019 Other specified endocrine disorders 04/08/2005 09/16/2019 documented as of this encounter (statuses as of 11/19/2021) [facility]ative* Problem Noted Date Resolved Date Low back pain 09/14/2015 05/17/2016 Chronic pain 09/14/2015 05/17/2016 Neurodermatitis 04/22/2013 06/23/2021 Eczematous dermatitis 04/22/2013 06/23/2021 Pyoderma, unspecified 04/22/2013 09/16/2019 Impetigo 04/22/2013 09/16/2019 Pruritus 04/22/2013 09/16/2019 Excoriation 04/22/2013 09/16/2019 Lichenification and lichen simplex chronicus 06/23/2021 Xerosis cutis 04/22/2013 09/16/2019 Duodenitis 09/14/2011 06/23/2021 Acute gastritis without mention of hemorrhage 06/23/2021 Cough 05/30/2006 09/16/2019 Other acne 04/08/2005 09/16/2019 Other specified endocrine disorders 04/08/2005 09/16/2019 documented as of this encounter (statuses as of 12/15/2021) [facility] N[facility]ative* Problem Noted Date Resolved Date Low back pain 09/14/2015 05/17/2016 Chronic pain 09/14/2015 05/17/2016 Neurodermatitis 04/22/2013 06/23/2021 Eczematous dermatitis 04/22/2013 06/23/2021 Pyoderma, unspecified 04/22/2013 09/16/2019 Impetigo 04/22/2013 09/16/2019 Pruritus 04/22/2013 09/16/2019 Excoriation 04/22/2013 09/16/2019 Lichenification and lichen simplex chronicus 06/23/2021 Xerosis cutis 04/22/2013 09/16/2019 Duodenitis 09/14/2011 06/23/2021 Acute gastritis without mention of hemorrhage 06/23/2021 Cough 05/30/2006 09/16/2019 Other acne 04/08/2005 09/16/2019 Other specified endocrine disorders 04/08/2005 09/16/2019 documented as of this encounter (statuses as of 12/21/2021) [facility]ative* Problem Noted Date Resolved Date Low back pain 09/14/2015 05/17/2016 Chronic pain 09/14/2015 05/17/2016 Neurodermatitis 04/22/2013 06/23/2021 Eczematous dermatitis 04/22/2013 06/23/2021 Pyoderma, unspecified 04/22/2013 09/16/2019 Impetigo 04/22/2013 09/16/2019 Pruritus 04/22/2013 09/16/2019 Excoriation 04/22/2013 09/16/2019 Lichenification and lichen simplex chronicus 06/23/2021 Xerosis cutis 04/22/2013 09/16/2019 Duodenitis 09/14/2011 06/23/2021 Acute gastritis without mention of hemorrhage 06/23/2021 Cough 05/30/2006 09/16/2019 Other acne 04/08/2005 09/16/2019 Other specified endocrine disorders 04/08/2005 09/16/2019 documented as of this encounter (statuses as of 01/06/2022) [facility]* Problem Noted Date Resolved Date Low back pain 09/14/2015 05/17/2016 Chronic pain 09/14/2015 05/17/2016 Neurodermatitis 04/22/2013 06/23/2021 Eczematous dermatitis 04/22/2013 06/23/2021 Pyoderma, unspecified 04/22/2013 09/16/2019 Impetigo 04/22/2013 09/16/2019 Pruritus 04/22/2013 09/16/2019 Excoriation 04/22/2013 09/16/2019 Lichenification and lichen simplex chronicus 06/23/2021 Xerosis cutis 04/22/2013 09/16/2019 Duodenitis 09/14/2011 06/23/2021 Acute gastritis without mention of hemorrhage 06/23/2021 Cough 05/30/2006 09/16/2019 Other acne 04/08/2005 09/16/2019 Other specified endocrine disorders 04/08/2005 09/16/2019 documented as of this encounter (statuses as of 01/12/2022) [facility]ative* Problem Noted Date Resolved Date Low back pain 09/14/2015 05/17/2016 Chronic pain 09/14/2015 05/17/2016 Neurodermatitis 04/22/2013 06/23/2021 Eczematous dermatitis 04/22/2013 06/23/2021 Pyoderma, unspecified 04/22/2013 09/16/2019 Impetigo 04/22/2013 09/16/2019 Pruritus 04/22/2013 09/16/2019 Excoriation 04/22/2013 09/16/2019 Lichenification and lichen simplex chronicus 06/23/2021 Xerosis cutis 04/22/2013 09/16/2019 Duodenitis 09/14/2011 06/23/2021 Acute gastritis without mention of hemorrhage 06/23/2021 Cough 05/30/2006 09/16/2019 Other acne 04/08/2005 09/16/2019 Other specified endocrine disorders 04/08/2005 09/16/2019 documented as of this encounter (statuses as of 01/18/2022) [facility]* Problem Noted Date Resolved Date Low back pain 09/14/2015 05/17/2016 Chronic pain 09/14/2015 05/17/2016 Neurodermatitis 04/22/2013 06/23/2021 Eczematous dermatitis 04/22/2013 06/23/2021 Pyoderma, unspecified 04/22/2013 09/16/2019 Impetigo 04/22/2013 09/16/2019 Pruritus 04/22/2013 09/16/2019 Excoriation 04/22/2013 09/16/2019 Lichenification and lichen simplex chronicus 06/23/2021 Xerosis cutis 04/22/2013 09/16/2019 Duodenitis 09/14/2011 06/23/2021 Acute gastritis without mention of hemorrhage 06/23/2021 Cough 05/30/2006 09/16/2019 Other acne 04/08/2005 09/16/2019 Other specified endocrine disorders 04/08/2005 09/16/2019 documented as of this encounter (statuses as of 01/20/2022) [facility]* Problem Noted Date Resolved Date Low back pain 09/14/2015 05/17/2016 Chronic pain 09/14/2015 05/17/2016 Neurodermatitis 04/22/2013 06/23/2021 Eczematous dermatitis 04/22/2013 06/23/2021 Pyoderma, unspecified 04/22/2013 09/16/2019 Impetigo 04/22/2013 09/16/2019 Pruritus 04/22/2013 09/16/2019 Excoriation 04/22/2013 09/16/2019 Lichenification and lichen simplex chronicus 06/23/2021 Xerosis cutis 04/22/2013 09/16/2019 Duodenitis 09/14/2011 06/23/2021 Acute gastritis without mention of hemorrhage 06/23/2021 Cough 05/30/2006 09/16/2019 Other acne 04/08/2005 09/16/2019 Other specified endocrine disorders 04/08/2005 09/16/2019 documented as of this encounter (statuses as of 01/20/2022) [facility]* Problem Noted Date Resolved Date Low back pain 09/14/2015 05/17/2016 Chronic pain 09/14/2015 05/17/2016 Neurodermatitis 04/22/2013 06/23/2021 Eczematous dermatitis 04/22/2013 06/23/2021 Pyoderma, unspecified 04/22/2013 09/16/2019 Impetigo 04/22/2013 09/16/2019 Pruritus 04/22/2013 09/16/2019 Excoriation 04/22/2013 09/16/2019 Lichenification and lichen simplex chronicus 06/23/2021 Xerosis cutis 04/22/2013 09/16/2019 Duodenitis 09/14/2011 06/23/2021 Acute gastritis without mention of hemorrhage 06/23/2021 Cough 05/30/2006 09/16/2019 Other acne 04/08/2005 09/16/2019 Other specified endocrine disorders 04/08/2005 09/16/2019 documented as of this encounter (statuses as of 01/21/2022) [facility]* Problem Noted Date Resolved Date Low back pain 09/14/2015 05/17/2016 Chronic pain 09/14/2015 05/17/2016 Neurodermatitis 04/22/2013 06/23/2021 Eczematous dermatitis 04/22/2013 06/23/2021 Pyoderma, unspecified 04/22/2013 09/16/2019 Impetigo 04/22/2013 09/16/2019 Pruritus 04/22/2013 09/16/2019 Excoriation 04/22/2013 09/16/2019 Lichenification and lichen simplex chronicus 06/23/2021 Xerosis cutis 04/22/2013 09/16/2019 Duodenitis 09/14/2011 06/23/2021 Acute gastritis without mention of hemorrhage 06/23/2021 Cough 05/30/2006 09/16/2019 Other acne 04/08/2005 09/16/2019 Other specified endocrine disorders 04/08/2005 09/16/2019 documented as of this encounter (statuses as of 01/21/2022) [facility]* Problem Noted Date Resolved Date Low back pain 09/14/2015 05/17/2016 Chronic pain 09/14/2015 05/17/2016 Neurodermatitis 04/22/2013 06/23/2021 Eczematous dermatitis 04/22/2013 06/23/2021 Pyoderma, unspecified 04/22/2013 09/16/2019 Impetigo 04/22/2013 09/16/2019 Pruritus 04/22/2013 09/16/2019 Excoriation 04/22/2013 09/16/2019 Lichenification and lichen simplex chronicus 06/23/2021 Xerosis cutis 04/22/2013 09/16/2019 Duodenitis 09/14/2011 06/23/2021 Acute gastritis without mention of hemorrhage 06/23/2021 Cough 05/30/2006 09/16/2019 Other acne 04/08/2005 09/16/2019 Other specified endocrine disorders 04/08/2005 09/16/2019 documented as of this encounter (statuses as of 01/26/2022) [facility]* Problem Noted Date Resolved Date Low back pain 09/14/2015 05/17/2016 Chronic pain 09/14/2015 05/17/2016 Neurodermatitis 04/22/2013 06/23/2021 Eczematous dermatitis 04/22/2013 06/23/2021 Pyoderma, unspecified 04/22/2013 09/16/2019 Impetigo 04/22/2013 09/16/2019 Pruritus 04/22/2013 09/16/2019 Excoriation 04/22/2013 09/16/2019 Lichenification and lichen simplex chronicus 06/23/2021 Xerosis cutis 04/22/2013 09/16/2019 Duodenitis 09/14/2011 06/23/2021 Acute gastritis without mention of hemorrhage 06/23/2021 Cough 05/30/2006 09/16/2019 Other acne 04/08/2005 09/16/2019 Other specified endocrine disorders 04/08/2005 09/16/2019 documented as of this encounter (statuses as of 01/27/2022) [facility]* Problem Noted Date Resolved Date Low back pain 09/14/2015 05/17/2016 Chronic pain 09/14/2015 05/17/2016 Neurodermatitis 04/22/2013 06/23/2021 Eczematous dermatitis 04/22/2013 06/23/2021 Pyoderma, unspecified 04/22/2013 09/16/2019 Impetigo 04/22/2013 09/16/2019 Pruritus 04/22/2013 09/16/2019 Excoriation 04/22/2013 09/16/2019 Lichenification and lichen simplex chronicus 06/23/2021 Xerosis cutis 04/22/2013 09/16/2019 Duodenitis 09/14/2011 06/23/2021 Acute gastritis without mention of hemorrhage 06/23/2021 Cough 05/30/2006 09/16/2019 Other acne 04/08/2005 09/16/2019 Other specified endocrine disorders 04/08/2005 09/16/2019 documented as of this encounter (statuses as of 01/27/2022) [facility]* Problem Noted Date Resolved Date Low back pain 09/14/2015 05/17/2016 Chronic pain 09/14/2015 05/17/2016 Neurodermatitis 04/22/2013 06/23/2021 Eczematous dermatitis 04/22/2013 06/23/2021 Pyoderma, unspecified 04/22/2013 09/16/2019 Impetigo 04/22/2013 09/16/2019 Pruritus 04/22/2013 09/16/2019 Excoriation 04/22/2013 09/16/2019 Lichenification and lichen simplex chronicus 06/23/2021 Xerosis cutis 04/22/2013 09/16/2019 Duodenitis 09/14/2011 06/23/2021 Acute gastritis without mention of hemorrhage 06/23/2021 Cough 05/30/2006 09/16/2019 Other acne 04/08/2005 09/16/2019 Other specified endocrine disorders 04/08/2005 09/16/2019 documented as of this encounter (statuses as of 01/28/2022) [facility]* Problem Noted Date Resolved Date Low back pain 09/14/2015 05/17/2016 Chronic pain 09/14/2015 05/17/2016 Neurodermatitis 04/22/2013 06/23/2021 Eczematous dermatitis 04/22/2013 06/23/2021 Pyoderma, unspecified 04/22/2013 09/16/2019 Impetigo 04/22/2013 09/16/2019 Pruritus 04/22/2013 09/16/2019 Excoriation 04/22/2013 09/16/2019 Lichenification and lichen simplex chronicus 06/23/2021 Xerosis cutis 04/22/2013 09/16/2019 Duodenitis 09/14/2011 06/23/2021 Acute gastritis without mention of hemorrhage 06/23/2021 Cough 05/30/2006 09/16/2019 Other acne 04/08/2005 09/16/2019 Other specified endocrine disorders 04/08/2005 09/16/2019 documented as of this encounter (statuses as of 01/31/2022) [facility]* Problem Noted Date Resolved Date Low back pain 09/14/2015 05/17/2016 Chronic pain 09/14/2015 05/17/2016 Neurodermatitis 04/22/2013 06/23/2021 Eczematous dermatitis 04/22/2013 06/23/2021 Pyoderma, unspecified 04/22/2013 09/16/2019 Impetigo 04/22/2013 09/16/2019 Pruritus 04/22/2013 09/16/2019 Excoriation 04/22/2013 09/16/2019 Lichenification and lichen simplex chronicus 06/23/2021 Xerosis cutis 04/22/2013 09/16/2019 Duodenitis 09/14/2011 06/23/2021 Acute gastritis without mention of hemorrhage 06/23/2021 Cough 05/30/2006 09/16/2019 Other acne 04/08/2005 09/16/2019 Other specified endocrine disorders 04/08/2005 09/16/2019 documented as of this encounter (statuses as of 02/09/2022) [facility]* Problem Noted Date Resolved Date Low back pain 09/14/2015 05/17/2016 Chronic pain 09/14/2015 05/17/2016 Neurodermatitis 04/22/2013 06/23/2021 Eczematous dermatitis 04/22/2013 06/23/2021 Pyoderma, unspecified 04/22/2013 09/16/2019 Impetigo 04/22/2013 09/16/2019 Pruritus 04/22/2013 09/16/2019 Excoriation 04/22/2013 09/16/2019 Lichenification and lichen simplex chronicus 06/23/2021 Xerosis cutis 04/22/2013 09/16/2019 Duodenitis 09/14/2011 06/23/2021 Acute gastritis without mention of hemorrhage 06/23/2021 Cough 05/30/2006 09/16/2019 Other acne 04/08/2005 09/16/2019 Other specified endocrine disorders 04/08/2005 09/16/2019 documented as of this encounter (statuses as of 02/15/2022) [facility]* Problem Noted Date Resolved Date Low back pain 09/14/2015 05/17/2016 Chronic pain 09/14/2015 05/17/2016 Neurodermatitis 04/22/2013 06/23/2021 Eczematous dermatitis 04/22/2013 06/23/2021 Pyoderma, unspecified 04/22/2013 09/16/2019 Impetigo 04/22/2013 09/16/2019 Pruritus 04/22/2013 09/16/2019 Excoriation 04/22/2013 09/16/2019 Lichenification and lichen simplex chronicus 06/23/2021 Xerosis cutis 04/22/2013 09/16/2019 Duodenitis 09/14/2011 06/23/2021 Acute gastritis without mention of hemorrhage 06/23/2021 Cough 05/30/2006 09/16/2019 Other acne 04/08/2005 09/16/2019 Other specified endocrine disorders 04/08/2005 09/16/2019 documented as of this encounter (statuses as of 02/16/2022) [facility]* Problem Noted Date Resolved Date Low back pain 09/14/2015 05/17/2016 Chronic pain 09/14/2015 05/17/2016 Neurodermatitis 04/22/2013 06/23/2021 Eczematous dermatitis 04/22/2013 06/23/2021 Pyoderma, unspecified 04/22/2013 09/16/2019 Impetigo 04/22/2013 09/16/2019 Pruritus 04/22/2013 09/16/2019 Excoriation 04/22/2013 09/16/2019 Lichenification and lichen simplex chronicus 06/23/2021 Xerosis cutis 04/22/2013 09/16/2019 Duodenitis 09/14/2011 06/23/2021 Acute gastritis without mention of hemorrhage 06/23/2021 Cough 05/30/2006 09/16/2019 Other acne 04/08/2005 09/16/2019 Other specified endocrine disorders 04/08/2005 09/16/2019 documented as of this encounter (statuses as of 02/17/2022) [facility]* Problem Noted Date Resolved Date Low back pain 09/14/2015 05/17/2016 Chronic pain 09/14/2015 05/17/2016 Neurodermatitis 04/22/2013 06/23/2021 Eczematous dermatitis 04/22/2013 06/23/2021 Pyoderma, unspecified 04/22/2013 09/16/2019 Impetigo 04/22/2013 09/16/2019 Pruritus 04/22/2013 09/16/2019 Excoriation 04/22/2013 09/16/2019 Lichenification and lichen simplex chronicus 06/23/2021 Xerosis cutis 04/22/2013 09/16/2019 Duodenitis 09/14/2011 06/23/2021 Acute gastritis without mention of hemorrhage 06/23/2021 Cough 05/30/2006 09/16/2019 Other acne 04/08/2005 09/16/2019 Other specified endocrine disorders 04/08/2005 09/16/2019 documented as of this encounter (statuses as of 02/17/2022) [facility]02-[facility] History of Past illness Narrative* Problem Noted Date Resolved Date Low back pain 09/14/2015 05/17/2016 Chronic pain 09/14/2015 05/17/2016 Neurodermatitis 04/22/2013 06/23/2021 Eczematous dermatitis 04/22/2013 06/23/2021 Pyoderma, unspecified 04/22/2013 09/16/2019 Impetigo 04/22/2013 09/16/2019 Pruritus 04/22/2013 09/16/2019 Excoriation 04/22/2013 09/16/2019 Lichenification and lichen simplex chronicus 06/23/2021 Xerosis cutis 04/22/2013 09/16/2019 Duodenitis 09/14/2011 06/23/2021 Acute gastritis without mention of hemorrhage 06/23/2021 Cough 05/30/2006 09/16/2019 Other acne 04/08/2005 09/16/2019 Other specified endocrine disorders 04/08/2005 09/16/2019 documented as of this encounter (statuses as of 02/24/2022) [facility] note* Diagnosis Pre-op examination- Primary Preoperative examination, unspecified Radiculopathy, lumbar region Thoracic or lumbosacral neuritis or radiculitis, unspecified Other secondary scoliosis, lumbar region Nicotine dependence, cigarettes, with other nicotine-induced disorders [facility] Diagnosis Spinal stenosis, lumbar region, without neurogenic claudication- Primary [facility] Diagnosis Preop testing- Primary Preoperative examination, unspecified Radiculopathy, lumbar region Thoracic or lumbosacral neuritis or radiculitis, unspecified Other secondary scoliosis, lumbar region Nicotine dependence, cigarettes, with other nicotine-induced disorders [facility] Diagnosis Iliac artery stenosis, bilateral (HCC)- Primary Stricture of artery [facility] Diagnosis Spinal stenosis of lumbar region with neurogenic claudication- Primary Spinal stenosis, lumbar region, with neurogenic claudication Spinal stenosis of lumbar region with neurogenic claudication Spinal stenosis, lumbar region, with neurogenic claudication [facility] Diagnosis Spinal stenosis of lumbar region with neurogenic claudication Spinal stenosis, lumbar region, with neurogenic claudication [facility] Diagnosis Post-operative state- Primary Other postprocedural status Spinal stenosis, lumbar region with neurogenic claudication S/P lumbar spinal fusion Arthrodesis status History of recent vascular procedure Other postprocedural status Pure hypercholesterolemia [facility] Diagnosis Spinal stenosis, lumbar region, with neurogenic claudication- Primary Pre-op testing Preoperative examination, unspecified Spinal stenosis, lumbar region, with neurogenic claudication [facility] Diagnosis Pre-operative examination- Primary Preoperative examination, unspecified Gastroesophageal reflux disease without esophagitis Esophageal reflux Allergy-induced asthma, mild intermittent, uncomplicated Former smoker Personal history of tobacco use, presenting hazards to health Hirsutism Thrombosis, iliac, 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 Spinal stenosis, lumbar region, without neurogenic claudication Pure hypercholesterolemia Spinal stenosis, lumbar region, with neurogenic claudication [facility] Diagnosis PAD (peripheral artery disease) (HCC)- Primary Peripheral vascular disease, unspecified Spinal stenosis, lumbar region, without neurogenic claudication Spinal stenosis, lumbar region, with neurogenic claudication [facility] Diagnosis Spinal stenosis, lumbar region with neurogenic claudication- Primary [facility] Diagnosis Radiculopathy, lumbar region- Primary Thoracic or lumbosacral neuritis or radiculitis, unspecified [facility]* Diagnosis Radiculopathy, lumbar region Thoracic or lumbosacral neuritis or radiculitis, unspecified [facility] Diagnosis S/P lumbar spinal fusion- Primary Arthrodesis status Lumbar stenosis with neurogenic claudication Spinal stenosis, lumbar region, with neurogenic claudication Spinal stenosis, lumbar region with neurogenic claudication Generalized weakness Other malaise and fatigue Hirsutism [facility] Diagnosis Spinal stenosis of lumbar region with neurogenic claudication- Primary Spinal stenosis, lumbar region, with neurogenic claudication [facility] Diagnosis Spinal stenosis of lumbar region with neurogenic claudication Spinal stenosis, lumbar region, with neurogenic claudication documented in this encounter [facility] note* Diagnosis Pre-op testing- Primary Preoperative examination, unspecified Radiculopathy, lumbar region Thoracic or lumbosacral neuritis or radiculitis, unspecified Radiculopathy, lumbar region Thoracic or lumbosacral neuritis or radiculitis, unspecified [facility]* Diagnosis Radiculopathy, lumbar region- Primary Thoracic or lumbosacral neuritis or radiculitis, unspecified Preoperative examination Preoperative examination, unspecified Radiculopathy, lumbar region Thoracic or lumbosacral neuritis or radiculitis, unspecified [facility]* Diagnosis Osteopenia of hip, unspecified laterality- Primary Radiculopathy, lumbar region Thoracic or lumbosacral neuritis or radiculitis, unspecified [facility]* Diagnosis S/P hardware removal- Primary Other postprocedural status Peripheral arterial disease ([facility]) Peripheral vascular disease, unspecified Spinal stenosis, lumbar region with neurogenic claudication [facility]* Diagnosis Iliac artery stenosis, bilateral ([facility])- Primary Stricture of artery [facility]* Diagnosis Radiculopathy, lumbar region- Primary Thoracic or lumbosacral neuritis or radiculitis, unspecified [facility]* Diagnosis Ganglion cyst of finger- Primary [facility]* Diagnosis Arthritis of big toe- Primary Osteoarthrosis, unspecified whether generalized or localized, ankle and foot PAD (peripheral artery disease) ([facility]) Peripheral vascular disease, unspecified [facility]* Diagnosis Asthma with chronic obstructive pulmonary disease (COPD) ([facility])- Primary Chronic obstructive asthma, unspecified Hirsutism Need for vaccination Need for prophylactic vaccination and inoculation against unspecified single disease Depression, unspecified depression type Former smoker Personal history of tobacco use, presenting hazards to health [facility]* Diagnosis Encounter for screening for lung cancer- Primary Former smoker Personal history of tobacco use, presenting hazards to health [facility]* Diagnosis Ganglion cyst of finger Ganglion cyst of finger of right hand [facility] Diagnosis Ganglion cyst of finger of right hand- Primary Ganglion cyst of finger of right hand [facility] Diagnosis Spinal stenosis of lumbar region with neurogenic claudication- Primary Spinal stenosis, lumbar region, with neurogenic claudication Ganglion cyst of finger of right hand [facility] Diagnosis Radiculopathy, lumbar region- Primary Thoracic or lumbosacral neuritis or radiculitis, unspecified [facility]* Diagnosis Acute non-recurrent pansinusitis- Primary OME (otitis media with effusion), bilateral [facility]* Diagnosis Osteopenia, unspecified location- Primary [facility] noteNo assessment information availableWGalion [facility] Work Phone: Evaluation note* Diagnosis Earache- Primary Otalgia, unspecified Folliculitis Other specified disease of hair and hair follicles Asthma with chronic obstructive pulmonary disease (COPD) (HCC) Chronic obstructive asthma, unspecified Tobacco abuse Tobacco use disorder Pure hypercholesterolemia PAD (peripheral artery disease) (HCC) Peripheral vascular disease, unspecified [facility] Diagnosis Spinal stenosis of lumbar region with neurogenic claudication- Primary Spinal stenosis, lumbar region, with neurogenic claudication [facility]* Diagnosis Asthma with chronic obstructive pulmonary disease (COPD) (HCC)- Primary Chronic obstructive asthma, unspecified [facility]* Diagnosis Spinal stenosis of lumbar region with neurogenic claudication- Primary Spinal stenosis, lumbar region, with neurogenic claudication [facility]* Diagnosis Spinal stenosis, lumbar region with neurogenic claudication- Primary [facility] Diagnosis Acute cough- Primary Sinobronchitis Unspecified sinusitis (chronic) [facility]* Diagnosis Encounter for screening mammogram for breast cancer [facility]* Diagnosis Spinal stenosis of lumbar region with neurogenic claudication Spinal stenosis, lumbar region, with neurogenic claudication [facility] Diagnosis Spinal stenosis of lumbar region with neurogenic claudication Spinal stenosis, lumbar region, with neurogenic claudication [facility]* Diagnosis Pre-op testing- Primary Preoperative examination, unspecified Radiculopathy, lumbar region Thoracic or lumbosacral neuritis or radiculitis, unspecified documented in this encounter [facility] note* Diagnosis Preoperative examination- Primary Preoperative examination, unspecified Radiculopathy, lumbar region Thoracic or lumbosacral neuritis or radiculitis, unspecified documented in this encounter [facility] note* Diagnosis Encounter for screening mammogram for breast cancer Radiculopathy, lumbar region Thoracic or lumbosacral neuritis or radiculitis, unspecified documented in this encounter [facility] note* Diagnosis Rhinosinusitis- Primary Unspecified sinusitis (chronic) documented in this encounter [facility] note* Diagnosis Bacterial sinusitis- Primary Unspecified sinusitis (chronic) documented in this encounter [facility] note* Diagnosis Spinal stenosis, lumbar region with neurogenic claudication- Primary Spinal stenosis, lumbar region with neurogenic claudication documented in this encounter [facility] note* Diagnosis Radiculopathy, lumbar region- Primary Thoracic or lumbosacral neuritis or radiculitis, unspecified documented in this encounter [facility] note* Diagnosis Encounter for screening mammogram for breast cancer documented in this encounter [facility] note* Diagnosis Hirsutism documented in this encounter [facility] note* Diagnosis Hirsutism documented in this encounter [facility] note* Diagnosis Pre-op examination- Primary Preoperative examination, unspecified Spinal stenosis, lumbar region, without neurogenic claudication Pure hypercholesterolemia Gastroesophageal reflux disease without esophagitis Esophageal reflux Allergy-induced asthma, mild intermittent, uncomplicated Hirsutism Former smoker Personal history of tobacco use, presenting hazards to health Acute postoperative pain Other acute postoperative pain Post-operative state Other postprocedural status Hypomagnesemia Disorders of magnesium metabolism Pre-operative examination- Primary Preoperative examination, unspecified Gastroesophageal reflux disease without esophagitis Esophageal reflux Allergy-induced asthma, mild intermittent, uncomplicated Former smoker Personal history of tobacco use, presenting hazards to health Hirsutism Thrombosis, iliac, 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 Spinal stenosis, lumbar region, without neurogenic claudication Pure hypercholesterolemia Former smoker- Primary Personal history of tobacco use, presenting hazards to health Preoperative examination Preoperative examination, unspecified History of DVT (deep vein thrombosis) Personal history of venous thrombosis and embolism Gastroesophageal reflux disease without esophagitis Esophageal reflux Pure hypercholesterolemia Allergy-induced asthma, mild intermittent, uncomplicated Hirsutism Preoperative examination Preoperative examination, unspecified Pure hypercholesterolemia PAD (peripheral artery disease) (HCC) Peripheral vascular disease, unspecified History of DVT (deep vein thrombosis) Personal history of venous thrombosis and embolism Asthma with chronic obstructive pulmonary disease (COPD) (HCC) Chronic obstructive asthma, unspecified Gastroesophageal reflux disease without esophagitis Esophageal reflux S/P lumbar spinal fusion Arthrodesis status Hirsutism Tobacco abuse Tobacco use disorder Upper respiratory tract infection, unspecified type- Primary documented in this encounter [facility] note* Diagnosis Pre-op examination- Primary Preoperative examination, unspecified Spinal stenosis, lumbar region, without neurogenic claudication Pure hypercholesterolemia Gastroesophageal reflux disease without esophagitis Esophageal reflux Allergy-induced asthma, mild intermittent, uncomplicated Hirsutism Former smoker Personal history of tobacco use, presenting hazards to health Acute postoperative pain Other acute postoperative pain Post-operative state Other postprocedural status Hypomagnesemia Disorders of magnesium metabolism Pre-operative examination- Primary Preoperative examination, unspecified Gastroesophageal reflux disease without esophagitis Esophageal reflux Allergy-induced asthma, mild intermittent, uncomplicated Former smoker Personal history of tobacco use, presenting hazards to health Hirsutism Thrombosis, iliac, 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 Spinal stenosis, lumbar region, without neurogenic claudication Pure hypercholesterolemia Former smoker- Primary Personal history of tobacco use, presenting hazards to health Preoperative examination Preoperative examination, unspecified History of DVT (deep vein thrombosis) Personal history of venous thrombosis and embolism Gastroesophageal reflux disease without esophagitis Esophageal reflux Pure hypercholesterolemia Allergy-induced asthma, mild intermittent, uncomplicated Hirsutism Preoperative examination Preoperative examination, unspecified Pure hypercholesterolemia PAD (peripheral artery disease) (HCC) Peripheral vascular disease, unspecified History of DVT (deep vein thrombosis) Personal history of venous thrombosis and embolism Asthma with chronic obstructive pulmonary disease (COPD) (HCC) Chronic obstructive asthma, unspecified Gastroesophageal reflux disease without esophagitis Esophageal reflux S/P lumbar spinal fusion Arthrodesis status Hirsutism Tobacco abuse Tobacco use disorder Wellness examination- Primary Hirsutism Gastroesophageal reflux disease without esophagitis Esophageal reflux Pure hypercholesterolemia Anemia, unspecified type Asthma with chronic obstructive pulmonary disease (COPD) (HCC) Chronic obstructive asthma, unspecified Vitamin D deficiency Unspecified vitamin D deficiency Screening for depression Encounter for screening examination for other mental health and behavioral disorders Encounter for screening for lung cancer Well woman exam Routine general medical examination at a health care facility documented in this encounter [facility] note* Diagnosis Pre-op examination- Primary Preoperative examination, unspecified Spinal stenosis, lumbar region, without neurogenic claudication Pure hypercholesterolemia Gastroesophageal reflux disease without esophagitis Esophageal reflux Allergy-induced asthma, mild intermittent, uncomplicated Hirsutism Former smoker Personal history of tobacco use, presenting hazards to health Acute postoperative pain Other acute postoperative pain Post-operative state Other postprocedural status Hypomagnesemia Disorders of magnesium metabolism Pre-operative examination- Primary Preoperative examination, unspecified Gastroesophageal reflux disease without esophagitis Esophageal reflux Allergy-induced asthma, mild intermittent, uncomplicated Former smoker Personal history of tobacco use, presenting hazards to health Hirsutism Thrombosis, iliac, 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 Spinal stenosis, lumbar region, without neurogenic claudication Pure hypercholesterolemia Former smoker- Primary Personal history of tobacco use, presenting hazards to health Preoperative examination Preoperative examination, unspecified History of DVT (deep vein thrombosis) Personal history of venous thrombosis and embolism Gastroesophageal reflux disease without esophagitis Esophageal reflux Pure hypercholesterolemia Allergy-induced asthma, mild intermittent, uncomplicated Hirsutism Preoperative examination Preoperative examination, unspecified Pure hypercholesterolemia PAD (peripheral artery disease) ([facility]) Peripheral vascular disease, unspecified History of DVT (deep vein thrombosis) Personal history of venous thrombosis and embolism Asthma with chronic obstructive pulmonary disease (COPD) ([facility]) Chronic obstructive asthma, unspecified Gastroesophageal reflux disease without esophagitis Esophageal reflux S/P lumbar spinal fusion Arthrodesis status Hirsutism Tobacco abuse Tobacco use disorder Hirsutism documented in this encounter [facility] note* Diagnosis Pre-op examination- Primary Preoperative examination, unspecified Spinal stenosis, lumbar region, without neurogenic claudication Pure hypercholesterolemia Gastroesophageal reflux disease without esophagitis Esophageal reflux Allergy-induced asthma, mild intermittent, uncomplicated Hirsutism Former smoker Personal history of tobacco use, presenting hazards to health Acute postoperative pain Other acute postoperative pain Post-operative state Other postprocedural status Hypomagnesemia Disorders of magnesium metabolism Pre-operative examination- Primary Preoperative examination, unspecified Gastroesophageal reflux disease without esophagitis Esophageal reflux Allergy-induced asthma, mild intermittent, uncomplicated Former smoker Personal history of tobacco use, presenting hazards to health Hirsutism Thrombosis, iliac, 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 Spinal stenosis, lumbar region, without neurogenic claudication Pure hypercholesterolemia Former smoker- Primary Personal history of tobacco use, presenting hazards to health Preoperative examination Preoperative examination, unspecified History of DVT (deep vein thrombosis) Personal history of venous thrombosis and embolism Gastroesophageal reflux disease without esophagitis Esophageal reflux Pure hypercholesterolemia Allergy-induced asthma, mild intermittent, uncomplicated Hirsutism Preoperative examination Preoperative examination, unspecified Pure hypercholesterolemia PAD (peripheral artery disease) (HCC) Peripheral vascular disease, unspecified History of DVT (deep vein thrombosis) Personal history of venous thrombosis and embolism Asthma with chronic obstructive pulmonary disease (COPD) (HCC) Chronic obstructive asthma, unspecified Gastroesophageal reflux disease without esophagitis Esophageal reflux S/P lumbar spinal fusion Arthrodesis status Hirsutism Tobacco abuse Tobacco use disorder Spinal stenosis, lumbar region with neurogenic claudication [facility] Diagnosis Pre-op examination- Primary Preoperative examination, unspecified Spinal stenosis, lumbar region, without neurogenic claudication Pure hypercholesterolemia Gastroesophageal reflux disease without esophagitis Esophageal reflux Allergy-induced asthma, mild intermittent, uncomplicated Hirsutism Former smoker Personal history of tobacco use, presenting hazards to health Acute postoperative pain Other acute postoperative pain Post-operative state Other postprocedural status Hypomagnesemia Disorders of magnesium metabolism Poor compliance Personal history of noncompliance with medical treatment, presenting hazards to health Pre-operative examination- Primary Preoperative examination, unspecified Gastroesophageal reflux disease without esophagitis Esophageal reflux Allergy-induced asthma, mild intermittent, uncomplicated Former smoker Personal history of tobacco use, presenting hazards to health Hirsutism Thrombosis, iliac, 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 Spinal stenosis, lumbar region, without neurogenic claudication Pure hypercholesterolemia Former smoker- Primary Personal history of tobacco use, presenting hazards to health Preoperative examination Preoperative examination, unspecified History of DVT (deep vein thrombosis) Personal history of venous thrombosis and embolism Gastroesophageal reflux disease without esophagitis Esophageal reflux Pure hypercholesterolemia Allergy-induced asthma, mild intermittent, uncomplicated Hirsutism Acute cough Preoperative examination Preoperative examination, unspecified Pure hypercholesterolemia PAD (peripheral artery disease) (HCC) Peripheral vascular disease, unspecified History of DVT (deep vein thrombosis) Personal history of venous thrombosis and embolism Asthma with chronic obstructive pulmonary disease (COPD) (HCC) Chronic obstructive asthma, unspecified Gastroesophageal reflux disease without esophagitis Esophageal reflux S/P lumbar spinal fusion Arthrodesis status Hirsutism Tobacco abuse Tobacco use disorder [facility] Diagnosis Pre-op examination- Primary Preoperative examination, unspecified Spinal stenosis, lumbar region, without neurogenic claudication Pure hypercholesterolemia Gastroesophageal reflux disease without esophagitis Esophageal reflux Allergy-induced asthma, mild intermittent, uncomplicated Hirsutism Former smoker Personal history of tobacco use, presenting hazards to health Acute postoperative pain Other acute postoperative pain Post-operative state Other postprocedural status Hypomagnesemia Disorders of magnesium metabolism Poor compliance Personal history of noncompliance with medical treatment, presenting hazards to health Pre-operative examination- Primary Preoperative examination, unspecified Gastroesophageal reflux disease without esophagitis Esophageal reflux Allergy-induced asthma, mild intermittent, uncomplicated Former smoker Personal history of tobacco use, presenting hazards to health Hirsutism Thrombosis, iliac, 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 Spinal stenosis, lumbar region, without neurogenic claudication Pure hypercholesterolemia Former smoker- Primary Personal history of tobacco use, presenting hazards to health Preoperative examination Preoperative examination, unspecified History of DVT (deep vein thrombosis) Personal history of venous thrombosis and embolism Gastroesophageal reflux disease without esophagitis Esophageal reflux Pure hypercholesterolemia Allergy-induced asthma, mild intermittent, uncomplicated Hirsutism Arthritis of big toe Osteoarthrosis, unspecified whether generalized or localized, ankle and foot Preoperative examination Preoperative examination, unspecified Pure hypercholesterolemia PAD (peripheral artery disease) ([facility]) Peripheral vascular disease, unspecified History of DVT (deep vein thrombosis) Personal history of venous thrombosis and embolism Asthma with chronic obstructive pulmonary disease (COPD) ([facility]) Chronic obstructive asthma, unspecified Gastroesophageal reflux disease without esophagitis Esophageal reflux S/P lumbar spinal fusion Arthrodesis status Hirsutism Tobacco abuse Tobacco use disorder [facility] Diagnosis Spinal stenosis, lumbar region with neurogenic claudication Pre-op examination- Primary Preoperative examination, unspecified Spinal stenosis, lumbar region, without neurogenic claudication Pure hypercholesterolemia Gastroesophageal reflux disease without esophagitis Esophageal reflux Allergy-induced asthma, mild intermittent, uncomplicated Hirsutism Former smoker Personal history of tobacco use, presenting hazards to health Pre-operative examination- Primary Preoperative examination, unspecified Gastroesophageal reflux disease without esophagitis Esophageal reflux Allergy-induced asthma, mild intermittent, uncomplicated Former smoker Personal history of tobacco use, presenting hazards to health Hirsutism Thrombosis, iliac, 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 Spinal stenosis, lumbar region, without neurogenic claudication Pure hypercholesterolemia Former smoker- Primary Personal history of tobacco use, presenting hazards to health Preoperative examination Preoperative examination, unspecified History of DVT (deep vein thrombosis) Personal history of venous thrombosis and embolism Gastroesophageal reflux disease without esophagitis Esophageal reflux Pure hypercholesterolemia Allergy-induced asthma, mild intermittent, uncomplicated Hirsutism Preoperative examination Preoperative examination, unspecified Pure hypercholesterolemia PAD (peripheral artery disease) ([facility]) Peripheral vascular disease, unspecified History of DVT (deep vein thrombosis) Personal history of venous thrombosis and embolism Asthma with chronic obstructive pulmonary disease (COPD) (HCC) Chronic obstructive asthma, unspecified Gastroesophageal reflux disease without esophagitis Esophageal reflux S/P lumbar spinal fusion Arthrodesis status Hirsutism Tobacco abuse Tobacco use disorder documented in this encounter [facility] note* Diagnosis Pre-op examination- Primary Preoperative examination, unspecified Spinal stenosis, lumbar region, without neurogenic claudication Pure hypercholesterolemia Gastroesophageal reflux disease without esophagitis Esophageal reflux Allergy-induced asthma, mild intermittent, uncomplicated Hirsutism Former smoker Personal history of tobacco use, presenting hazards to health Acute postoperative pain Other acute postoperative pain Post-operative state Other postprocedural status Hypomagnesemia Disorders of magnesium metabolism Pre-operative examination- Primary Preoperative examination, unspecified Gastroesophageal reflux disease without esophagitis Esophageal reflux Allergy-induced asthma, mild intermittent, uncomplicated Former smoker Personal history of tobacco use, presenting hazards to health Hirsutism Thrombosis, iliac, artery ([facility]) Embolism and thrombosis of iliac artery Spinal stenosis, lumbar region, without neurogenic claudication Pure hypercholesterolemia Former smoker- Primary Personal history of tobacco use, presenting hazards to health Preoperative examination Preoperative examination, unspecified History of DVT (deep vein thrombosis) Personal history of venous thrombosis and embolism Gastroesophageal reflux disease without esophagitis Esophageal reflux Pure hypercholesterolemia Allergy-induced asthma, mild intermittent, uncomplicated Hirsutism Preoperative examination Preoperative examination, unspecified Pure hypercholesterolemia PAD (peripheral artery disease) ([facility]) Peripheral vascular disease, unspecified History of DVT (deep vein thrombosis) Personal history of venous thrombosis and embolism Asthma with chronic obstructive pulmonary disease (COPD) ([facility]) Chronic obstructive asthma, unspecified Gastroesophageal reflux disease without esophagitis Esophageal reflux S/P lumbar spinal fusion Arthrodesis status Hirsutism Tobacco abuse Tobacco use disorder Acute non-recurrent sinusitis, unspecified location- Primary documented in this encounter [facility] note* Diagnosis Pre-op examination- Primary Preoperative examination, unspecified Spinal stenosis, lumbar region, without neurogenic claudication Pure hypercholesterolemia Gastroesophageal reflux disease without esophagitis Esophageal reflux Allergy-induced asthma, mild intermittent, uncomplicated Hirsutism Former smoker Personal history of tobacco use, presenting hazards to health Acute postoperative pain Other acute postoperative pain Post-operative state Other postprocedural status Hypomagnesemia Disorders of magnesium metabolism Pre-operative examination- Primary Preoperative examination, unspecified Gastroesophageal reflux disease without esophagitis Esophageal reflux Allergy-induced asthma, mild intermittent, uncomplicated Former smoker Personal history of tobacco use, presenting hazards to health Hirsutism Thrombosis, iliac, 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 Spinal stenosis, lumbar region, without neurogenic claudication Pure hypercholesterolemia Former smoker- Primary Personal history of tobacco use, presenting hazards to health Preoperative examination Preoperative examination, unspecified History of DVT (deep vein thrombosis) Personal history of venous thrombosis and embolism Gastroesophageal reflux disease without esophagitis Esophageal reflux Pure hypercholesterolemia Allergy-induced asthma, mild intermittent, uncomplicated Hirsutism Preoperative examination Preoperative examination, unspecified Pure hypercholesterolemia PAD (peripheral artery disease) (HCC) Peripheral vascular disease, unspecified History of DVT (deep vein thrombosis) Personal history of venous thrombosis and embolism Asthma with chronic obstructive pulmonary disease (COPD) (HCC) Chronic obstructive asthma, unspecified Gastroesophageal reflux disease without esophagitis Esophageal reflux S/P lumbar spinal fusion Arthrodesis status Hirsutism Tobacco abuse Tobacco use disorder Radiculopathy, lumbar region- Primary Thoracic or lumbosacral neuritis or radiculitis, unspecified [facility]* Diagnosis Pre-op examination- Primary Preoperative examination, unspecified Spinal stenosis, lumbar region, without neurogenic claudication Pure hypercholesterolemia Gastroesophageal reflux disease without esophagitis Esophageal reflux Allergy-induced asthma, mild intermittent, uncomplicated Hirsutism Former smoker Personal history of tobacco use, presenting hazards to health Acute postoperative pain Other acute postoperative pain Post-operative state Other postprocedural status Hypomagnesemia Disorders of magnesium metabolism Pre-operative examination- Primary Preoperative examination, unspecified Gastroesophageal reflux disease without esophagitis Esophageal reflux Allergy-induced asthma, mild intermittent, uncomplicated Former smoker Personal history of tobacco use, presenting hazards to health Hirsutism Thrombosis, iliac, 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 Spinal stenosis, lumbar region, without neurogenic claudication Pure hypercholesterolemia Former smoker- Primary Personal history of tobacco use, presenting hazards to health Preoperative examination Preoperative examination, unspecified History of DVT (deep vein thrombosis) Personal history of venous thrombosis and embolism Gastroesophageal reflux disease without esophagitis Esophageal reflux Pure hypercholesterolemia Allergy-induced asthma, mild intermittent, uncomplicated Hirsutism Preoperative examination Preoperative examination, unspecified Pure hypercholesterolemia PAD (peripheral artery disease) (HCC) Peripheral vascular disease, unspecified History of DVT (deep vein thrombosis) Personal history of venous thrombosis and embolism Asthma with chronic obstructive pulmonary disease (COPD) ([facility]) Chronic obstructive asthma, unspecified Gastroesophageal reflux disease without esophagitis Esophageal reflux S/P lumbar spinal fusion Arthrodesis status Hirsutism Tobacco abuse Tobacco use disorder Bacterial sinusitis- Primary Unspecified sinusitis (chronic) documented in this encounter [facility] note* Diagnosis Pre-op examination- Primary Preoperative examination, unspecified Spinal stenosis, lumbar region, without neurogenic claudication Pure hypercholesterolemia Gastroesophageal reflux disease without esophagitis Esophageal reflux Allergy-induced asthma, mild intermittent, uncomplicated Hirsutism Former smoker Personal history of tobacco use, presenting hazards to health Acute postoperative pain Other acute postoperative pain Post-operative state Other postprocedural status Hypomagnesemia Disorders of magnesium metabolism Pre-operative examination- Primary Preoperative examination, unspecified Gastroesophageal reflux disease without esophagitis Esophageal reflux Allergy-induced asthma, mild intermittent, uncomplicated Former smoker Personal history of tobacco use, presenting hazards to health Hirsutism Thrombosis, iliac, artery ([facility]) Embolism and thrombosis of iliac artery Spinal stenosis, lumbar region, without neurogenic claudication Pure hypercholesterolemia Former smoker- Primary Personal history of tobacco use, presenting hazards to health Preoperative examination Preoperative examination, unspecified History of DVT (deep vein thrombosis) Personal history of venous thrombosis and embolism Gastroesophageal reflux disease without esophagitis Esophageal reflux Pure hypercholesterolemia Allergy-induced asthma, mild intermittent, uncomplicated Hirsutism Preoperative examination Preoperative examination, unspecified Pure hypercholesterolemia PAD (peripheral artery disease) ([facility]) Peripheral vascular disease, unspecified History of DVT (deep vein thrombosis) Personal history of venous thrombosis and embolism Asthma with chronic obstructive pulmonary disease (COPD) ([facility]) Chronic obstructive asthma, unspecified Gastroesophageal reflux disease without esophagitis Esophageal reflux S/P lumbar spinal fusion Arthrodesis status Hirsutism Tobacco abuse Tobacco use disorder Wound cellulitis- Primary Cellulitis and abscess of unspecified site documented in this encounter [facility] note* Diagnosis Pre-op examination- Primary Preoperative examination, unspecified Spinal stenosis, lumbar region, without neurogenic claudication Pure hypercholesterolemia Gastroesophageal reflux disease without esophagitis Esophageal reflux Allergy-induced asthma, mild intermittent, uncomplicated Hirsutism Former smoker Personal history of tobacco use, presenting hazards to health Acute postoperative pain Other acute postoperative pain Post-operative state Other postprocedural status Hypomagnesemia Disorders of magnesium metabolism Pre-operative examination- Primary Preoperative examination, unspecified Gastroesophageal reflux disease without esophagitis Esophageal reflux Allergy-induced asthma, mild intermittent, uncomplicated Former smoker Personal history of tobacco use, presenting hazards to health Hirsutism Thrombosis, iliac, 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 Spinal stenosis, lumbar region, without neurogenic claudication Pure hypercholesterolemia Former smoker- Primary Personal history of tobacco use, presenting hazards to health Preoperative examination Preoperative examination, unspecified History of DVT (deep vein thrombosis) Personal history of venous thrombosis and embolism Gastroesophageal reflux disease without esophagitis Esophageal reflux Pure hypercholesterolemia Allergy-induced asthma, mild intermittent, uncomplicated Hirsutism Preoperative examination Preoperative examination, unspecified Pure hypercholesterolemia PAD (peripheral artery disease) (HCC) Peripheral vascular disease, unspecified History of DVT (deep vein thrombosis) Personal history of venous thrombosis and embolism Asthma with chronic obstructive pulmonary disease (COPD) (HCC) Chronic obstructive asthma, unspecified Gastroesophageal reflux disease without esophagitis Esophageal reflux S/P lumbar spinal fusion Arthrodesis status Hirsutism Tobacco abuse Tobacco use disorder Spinal stenosis of lumbar region with neurogenic claudication- Primary Spinal stenosis, lumbar region, with neurogenic claudication documented in this encounter [facility] note* Diagnosis Pre-op examination- Primary Preoperative examination, unspecified Spinal stenosis, lumbar region, without neurogenic claudication Pure hypercholesterolemia Gastroesophageal reflux disease without esophagitis Esophageal reflux Allergy-induced asthma, mild intermittent, uncomplicated Hirsutism Former smoker Personal history of tobacco use, presenting hazards to health Acute postoperative pain Other acute postoperative pain Post-operative state Other postprocedural status Hypomagnesemia Disorders of magnesium metabolism Pre-operative examination- Primary Preoperative examination, unspecified Gastroesophageal reflux disease without esophagitis Esophageal reflux Allergy-induced asthma, mild intermittent, uncomplicated Former smoker Personal history of tobacco use, presenting hazards to health Hirsutism Thrombosis, iliac, 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 Spinal stenosis, lumbar region, without neurogenic claudication Pure hypercholesterolemia Former smoker- Primary Personal history of tobacco use, presenting hazards to health Preoperative examination Preoperative examination, unspecified History of DVT (deep vein thrombosis) Personal history of venous thrombosis and embolism Gastroesophageal reflux disease without esophagitis Esophageal reflux Pure hypercholesterolemia Allergy-induced asthma, mild intermittent, uncomplicated Hirsutism Preoperative examination Preoperative examination, unspecified Pure hypercholesterolemia PAD (peripheral artery disease) (HCC) Peripheral vascular disease, unspecified History of DVT (deep vein thrombosis) Personal history of venous thrombosis and embolism Asthma with chronic obstructive pulmonary disease (COPD) (HCC) Chronic obstructive asthma, unspecified Gastroesophageal reflux disease without esophagitis Esophageal reflux S/P lumbar spinal fusion Arthrodesis status Hirsutism Tobacco abuse Tobacco use disorder Hirsutism documented in this encounter [facility] note* Diagnosis Pre-op examination- Primary Preoperative examination, unspecified Spinal stenosis, lumbar region, without neurogenic claudication Pure hypercholesterolemia Gastroesophageal reflux disease without esophagitis Esophageal reflux Allergy-induced asthma, mild intermittent, uncomplicated Hirsutism Former smoker Personal history of tobacco use, presenting hazards to health Acute postoperative pain Other acute postoperative pain Post-operative state Other postprocedural status Hypomagnesemia Disorders of magnesium metabolism Pre-operative examination- Primary Preoperative examination, unspecified Gastroesophageal reflux disease without esophagitis Esophageal reflux Allergy-induced asthma, mild intermittent, uncomplicated Former smoker Personal history of tobacco use, presenting hazards to health Hirsutism Thrombosis, iliac, 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 Spinal stenosis, lumbar region, without neurogenic claudication Pure hypercholesterolemia Former smoker- Primary Personal history of tobacco use, presenting hazards to health Preoperative examination Preoperative examination, unspecified History of DVT (deep vein thrombosis) Personal history of venous thrombosis and embolism Gastroesophageal reflux disease without esophagitis Esophageal reflux Pure hypercholesterolemia Allergy-induced asthma, mild intermittent, uncomplicated Hirsutism Preoperative examination Preoperative examination, unspecified Pure hypercholesterolemia PAD (peripheral artery disease) ([facility]) Peripheral vascular disease, unspecified History of DVT (deep vein thrombosis) Personal history of venous thrombosis and embolism Asthma with chronic obstructive pulmonary disease (COPD) ([facility]) Chronic obstructive asthma, unspecified Gastroesophageal reflux disease without esophagitis Esophageal reflux S/P lumbar spinal fusion Arthrodesis status Hirsutism Tobacco abuse Tobacco use disorder Spinal stenosis of lumbar region with neurogenic claudication- Primary Spinal stenosis, lumbar region, with neurogenic claudication documented in this encounter [facility] note* Diagnosis Pre-op examination- Primary Preoperative examination, unspecified Spinal stenosis, lumbar region, without neurogenic claudication Pure hypercholesterolemia Gastroesophageal reflux disease without esophagitis Esophageal reflux Allergy-induced asthma, mild intermittent, uncomplicated Hirsutism Former smoker Personal history of tobacco use, presenting hazards to health Acute postoperative pain Other acute postoperative pain Post-operative state Other postprocedural status Hypomagnesemia Disorders of magnesium metabolism Pre-operative examination- Primary Preoperative examination, unspecified Gastroesophageal reflux disease without esophagitis Esophageal reflux Allergy-induced asthma, mild intermittent, uncomplicated Former smoker Personal history of tobacco use, presenting hazards to health Hirsutism Thrombosis, iliac, 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 Spinal stenosis, lumbar region, without neurogenic claudication Pure hypercholesterolemia Former smoker- Primary Personal history of tobacco use, presenting hazards to health Preoperative examination Preoperative examination, unspecified History of DVT (deep vein thrombosis) Personal history of venous thrombosis and embolism Gastroesophageal reflux disease without esophagitis Esophageal reflux Pure hypercholesterolemia Allergy-induced asthma, mild intermittent, uncomplicated Hirsutism Preoperative examination Preoperative examination, unspecified Pure hypercholesterolemia PAD (peripheral artery disease) (HCC) Peripheral vascular disease, unspecified History of DVT (deep vein thrombosis) Personal history of venous thrombosis and embolism Asthma with chronic obstructive pulmonary disease (COPD) (HCC) Chronic obstructive asthma, unspecified Gastroesophageal reflux disease without esophagitis Esophageal reflux S/P lumbar spinal fusion Arthrodesis status Hirsutism Tobacco abuse Tobacco use disorder Acute cough- Primary Rhinosinusitis Unspecified sinusitis (chronic) Acute cough [facility]* Diagnosis Pre-op examination- Primary Preoperative examination, unspecified Spinal stenosis, lumbar region, without neurogenic claudication Pure hypercholesterolemia Gastroesophageal reflux disease without esophagitis Esophageal reflux Allergy-induced asthma, mild intermittent, uncomplicated Hirsutism Former smoker Personal history of tobacco use, presenting hazards to health Acute postoperative pain Other acute postoperative pain Post-operative state Other postprocedural status Hypomagnesemia Disorders of magnesium metabolism Pre-operative examination- Primary Preoperative examination, unspecified Gastroesophageal reflux disease without esophagitis Esophageal reflux Allergy-induced asthma, mild intermittent, uncomplicated Former smoker Personal history of tobacco use, presenting hazards to health Hirsutism Thrombosis, iliac, 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 Spinal stenosis, lumbar region, without neurogenic claudication Pure hypercholesterolemia Former smoker- Primary Personal history of tobacco use, presenting hazards to health Preoperative examination Preoperative examination, unspecified History of DVT (deep vein thrombosis) Personal history of venous thrombosis and embolism Gastroesophageal reflux disease without esophagitis Esophageal reflux Pure hypercholesterolemia Allergy-induced asthma, mild intermittent, uncomplicated Hirsutism Preoperative examination Preoperative examination, unspecified Pure hypercholesterolemia PAD (peripheral artery disease) (HCC) Peripheral vascular disease, unspecified History of DVT (deep vein thrombosis) Personal history of venous thrombosis and embolism Asthma with chronic obstructive pulmonary disease (COPD) (HCC) Chronic obstructive asthma, unspecified Gastroesophageal reflux disease without esophagitis Esophageal reflux S/P lumbar spinal fusion Arthrodesis status Hirsutism Tobacco abuse Tobacco use disorder [facility] examination- Primary Preoperative examination, unspecified Spinal stenosis, lumbar region, without neurogenic claudication Pure hypercholesterolemia Gastroesophageal reflux disease without esophagitis Esophageal reflux Allergy-induced asthma, mild intermittent, uncomplicated Hirsutism Former smoker Personal history of tobacco use, presenting hazards to health Acute postoperative pain Other acute postoperative pain Post-operative state Other postprocedural status Hypomagnesemia Disorders of magnesium metabolism Pre-operative examination- Primary Preoperative examination, unspecified Gastroesophageal reflux disease without esophagitis Esophageal reflux Allergy-induced asthma, mild intermittent, uncomplicated Former smoker Personal history of tobacco use, presenting hazards to health Hirsutism Thrombosis, iliac, 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 Spinal stenosis, lumbar region, without neurogenic claudication Pure hypercholesterolemia Former smoker- Primary Personal history of tobacco use, presenting hazards to health Preoperative examination Preoperative examination, unspecified History of DVT (deep vein thrombosis) Personal history of venous thrombosis and embolism Gastroesophageal reflux disease without esophagitis Esophageal reflux Pure hypercholesterolemia Allergy-induced asthma, mild intermittent, uncomplicated Hirsutism Preoperative examination Preoperative examination, unspecified Pure hypercholesterolemia PAD (peripheral artery disease) ([facility]) Peripheral vascular disease, unspecified History of DVT (deep vein thrombosis) Personal history of venous thrombosis and embolism Asthma with chronic obstructive pulmonary disease (COPD) ([facility]) Chronic obstructive asthma, unspecified Gastroesophageal reflux disease without esophagitis Esophageal reflux S/P lumbar spinal fusion Arthrodesis status Hirsutism Tobacco abuse Tobacco use disorder Spinal stenosis of lumbar region with neurogenic claudication Spinal stenosis, lumbar region, with neurogenic claudication [facility] Diagnosis Pre-op examination- Primary Preoperative examination, unspecified Spinal stenosis, lumbar region, without neurogenic claudication Pure hypercholesterolemia Gastroesophageal reflux disease without esophagitis Esophageal reflux Allergy-induced asthma, mild intermittent, uncomplicated (HCC) Hirsutism Former smoker Personal history of tobacco use, presenting hazards to health Acute postoperative pain Other acute postoperative pain Post-operative state Other postprocedural status Hypomagnesemia Disorders of magnesium metabolism Pre-operative examination- Primary Preoperative examination, unspecified Gastroesophageal reflux disease without esophagitis Esophageal reflux Allergy-induced asthma, mild intermittent, uncomplicated (HCC) Former smoker Personal history of tobacco use, presenting hazards to health Hirsutism Thrombosis, iliac, 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 Spinal stenosis, lumbar region, without neurogenic claudication Pure hypercholesterolemia Former smoker- Primary Personal history of tobacco use, presenting hazards to health Preoperative examination Preoperative examination, unspecified History of DVT (deep vein thrombosis) Personal history of venous thrombosis and embolism Gastroesophageal reflux disease without esophagitis Esophageal reflux Pure hypercholesterolemia Allergy-induced asthma, mild intermittent, uncomplicated (HCC) Hirsutism Preoperative examination Preoperative examination, unspecified Pure hypercholesterolemia PAD (peripheral artery disease) Peripheral vascular disease, unspecified History of DVT (deep vein thrombosis) Personal history of venous thrombosis and embolism Asthma with chronic obstructive pulmonary disease (COPD) (HCC) Chronic obstructive asthma, unspecified Gastroesophageal reflux disease without esophagitis Esophageal reflux S/P lumbar spinal fusion Arthrodesis status Hirsutism Tobacco abuse Tobacco use disorder Spinal stenosis of lumbar region with neurogenic claudication- Primary Spinal stenosis, lumbar region, with neurogenic claudication Spinal stenosis of lumbar region with neurogenic claudication Spinal stenosis, lumbar region, with neurogenic claudication [facility] Diagnosis Pre-op examination- Primary Preoperative examination, unspecified Spinal stenosis, lumbar region, without neurogenic claudication Pure hypercholesterolemia Gastroesophageal reflux disease without esophagitis Esophageal reflux Allergy-induced asthma, mild intermittent, uncomplicated (HCC) Hirsutism Former smoker Personal history of tobacco use, presenting hazards to health Acute postoperative pain Other acute postoperative pain Post-operative state Other postprocedural status Hypomagnesemia Disorders of magnesium metabolism Pre-operative examination- Primary Preoperative examination, unspecified Gastroesophageal reflux disease without esophagitis Esophageal reflux Allergy-induced asthma, mild intermittent, uncomplicated (HCC) Former smoker Personal history of tobacco use, presenting hazards to health Hirsutism Thrombosis, iliac, 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 Spinal stenosis, lumbar region, without neurogenic claudication Pure hypercholesterolemia Former smoker- Primary Personal history of tobacco use, presenting hazards to health Preoperative examination Preoperative examination, unspecified History of DVT (deep vein thrombosis) Personal history of venous thrombosis and embolism Gastroesophageal reflux disease without esophagitis Esophageal reflux Pure hypercholesterolemia Allergy-induced asthma, mild intermittent, uncomplicated (HCC) Hirsutism Preoperative examination Preoperative examination, unspecified Pure hypercholesterolemia PAD (peripheral artery disease) Peripheral vascular disease, unspecified History of DVT (deep vein thrombosis) Personal history of venous thrombosis and embolism Asthma with chronic obstructive pulmonary disease (COPD) (HCC) Chronic obstructive asthma, unspecified Gastroesophageal reflux disease without esophagitis Esophageal reflux S/P lumbar spinal fusion Arthrodesis status Hirsutism Tobacco abuse Tobacco use disorder Pure hypercholesterolemia- Primary History of DVT (deep vein thrombosis) Personal history of venous [facility] and embolism [facility] Pre-op examination- Primary Preoperative examination, unspecified Spinal stenosis, lumbar region, without neurogenic claudication Pure hypercholesterolemia Gastroesophageal reflux disease without esophagitis Esophageal reflux Allergy-induced asthma, mild intermittent, uncomplicated (HCC) Hirsutism Former smoker Personal history of tobacco use, presenting hazards to health Acute postoperative pain Other acute postoperative pain Post-operative state Other postprocedural status Hypomagnesemia Disorders of magnesium metabolism Pre-operative examination- Primary Preoperative examination, unspecified Gastroesophageal reflux disease without esophagitis Esophageal reflux Allergy-induced asthma, mild intermittent, uncomplicated (HCC) Former smoker Personal history of tobacco use, presenting hazards to health Hirsutism Thrombosis, iliac, 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 Spinal stenosis, lumbar region, without neurogenic claudication Pure hypercholesterolemia Former smoker- Primary Personal history of tobacco use, presenting hazards to health Preoperative examination Preoperative examination, unspecified History of DVT (deep vein thrombosis) Personal history of venous thrombosis and embolism Gastroesophageal reflux disease without esophagitis Esophageal reflux Pure hypercholesterolemia Allergy-induced asthma, mild intermittent, uncomplicated (HCC) Hirsutism Preoperative examination Preoperative examination, unspecified Pure hypercholesterolemia PAD (peripheral artery disease) Peripheral vascular disease, unspecified History of DVT (deep vein thrombosis) Personal history of venous thrombosis and embolism Asthma with chronic obstructive pulmonary disease (COPD) (HCC) Chronic obstructive asthma, unspecified Gastroesophageal reflux disease without esophagitis Esophageal reflux S/P lumbar spinal fusion Arthrodesis status Hirsutism Tobacco abuse Tobacco use disorder Pain of left thumb- Primary Pain in limb De Quervain's tenosynovitis, left Radial styloid tenosynovitis Pain of left thumb Pain in limb documented in this encounter [facility] note* Diagnosis Pre-op examination- Primary Preoperative examination, unspecified Spinal stenosis, lumbar region, without neurogenic claudication Pure hypercholesterolemia Gastroesophageal reflux disease without esophagitis Esophageal reflux Allergy-induced asthma, mild intermittent, uncomplicated (HCC) Hirsutism Former smoker Personal history of tobacco use, presenting hazards to health Acute postoperative pain Other acute postoperative pain Post-operative state Other postprocedural status Hypomagnesemia Disorders of magnesium metabolism Pre-operative examination- Primary Preoperative examination, unspecified Gastroesophageal reflux disease without esophagitis Esophageal reflux Allergy-induced asthma, mild intermittent, uncomplicated (HCC) Former smoker Personal history of tobacco use, presenting hazards to health Hirsutism Thrombosis, iliac, 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 Spinal stenosis, lumbar region, without neurogenic claudication Pure hypercholesterolemia Former smoker- Primary Personal history of tobacco use, presenting hazards to health Preoperative examination Preoperative examination, unspecified History of DVT (deep vein thrombosis) Personal history of venous thrombosis and embolism Gastroesophageal reflux disease without esophagitis Esophageal reflux Pure hypercholesterolemia Allergy-induced asthma, mild intermittent, uncomplicated (HCC) Hirsutism Preoperative examination Preoperative examination, unspecified Pure hypercholesterolemia PAD (peripheral artery disease) Peripheral vascular disease, unspecified History of DVT (deep vein thrombosis) Personal history of venous thrombosis and embolism Asthma with chronic obstructive pulmonary disease (COPD) (HCC) Chronic obstructive asthma, unspecified Gastroesophageal reflux disease without esophagitis Esophageal reflux S/P lumbar spinal fusion Arthrodesis status Hirsutism Tobacco abuse Tobacco use disorder Pain of left thumb Pain in limb [facility] Diagnosis Pre-op examination- Primary Preoperative examination, unspecified Spinal stenosis, lumbar region, without neurogenic claudication Pure hypercholesterolemia Gastroesophageal reflux disease without esophagitis Esophageal reflux Allergy-induced asthma, mild intermittent, uncomplicated (HCC) Hirsutism Former smoker Personal history of tobacco use, presenting hazards to health Acute postoperative pain Other acute postoperative pain Post-operative state Other postprocedural status Hypomagnesemia Disorders of magnesium metabolism Pre-operative examination- Primary Preoperative examination, unspecified Gastroesophageal reflux disease without esophagitis Esophageal reflux Allergy-induced asthma, mild intermittent, uncomplicated (HCC) Former smoker Personal history of tobacco use, presenting hazards to health Hirsutism Thrombosis, iliac, 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 Spinal stenosis, lumbar region, without neurogenic claudication Pure hypercholesterolemia Former smoker- Primary Personal history of tobacco use, presenting hazards to health Preoperative examination Preoperative examination, unspecified History of DVT (deep vein thrombosis) Personal history of venous thrombosis and embolism Gastroesophageal reflux disease without esophagitis Esophageal reflux Pure hypercholesterolemia Allergy-induced asthma, mild intermittent, uncomplicated (HCC) Hirsutism Preoperative examination Preoperative examination, unspecified Pure hypercholesterolemia PAD (peripheral artery disease) Peripheral vascular disease, unspecified History of DVT (deep vein thrombosis) Personal history of venous thrombosis and embolism Asthma with chronic obstructive pulmonary disease (COPD) (HCC) Chronic obstructive asthma, unspecified Gastroesophageal reflux disease without esophagitis Esophageal reflux S/P lumbar spinal fusion Arthrodesis status Hirsutism Tobacco abuse Tobacco use disorder Chronic bilateral low back pain with right-sided sciatica- Primary [facility] Pre-op examination- Primary Preoperative examination, unspecified Spinal stenosis, lumbar region, without neurogenic claudication Pure hypercholesterolemia Gastroesophageal reflux disease without esophagitis Esophageal reflux Allergy-induced asthma, mild intermittent, uncomplicated (HCC) Hirsutism Former smoker Personal history of tobacco use, presenting hazards to health Acute postoperative pain Other acute postoperative pain Post-operative state Other postprocedural status Hypomagnesemia Disorders of magnesium metabolism Pre-operative examination- Primary Preoperative examination, unspecified Gastroesophageal reflux disease without esophagitis Esophageal reflux Allergy-induced asthma, mild intermittent, uncomplicated (HCC) Former smoker Personal history of tobacco use, presenting hazards to health Hirsutism Thrombosis, iliac, 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 Spinal stenosis, lumbar region, without neurogenic claudication Pure hypercholesterolemia Former smoker- Primary Personal history of tobacco use, presenting hazards to health Preoperative examination Preoperative examination, unspecified History of DVT (deep vein thrombosis) Personal history of venous thrombosis and embolism Gastroesophageal reflux disease without esophagitis Esophageal reflux Pure hypercholesterolemia Allergy-induced asthma, mild intermittent, uncomplicated (HCC) Hirsutism Preoperative examination Preoperative examination, unspecified Pure hypercholesterolemia PAD (peripheral artery disease) Peripheral vascular disease, unspecified History of DVT (deep vein thrombosis) Personal history of venous thrombosis and embolism Asthma with chronic obstructive pulmonary disease (COPD) (HCC) Chronic obstructive asthma, unspecified Gastroesophageal reflux disease without esophagitis Esophageal reflux S/P lumbar spinal fusion Arthrodesis status Hirsutism Tobacco abuse Tobacco use disorder Tendinitis of thumb- Primary Other tenosynovitis of hand and wrist De Quervain's tenosynovitis, left Radial styloid tenosynovitis [facility] Visit Details Visit Type -PT AGENCY JERE W V MELISSA Discipline -Physical Therapy Problems Problem Description Start Date Status Goals Interve ntions Medication Education Disciplines: Skilled Services 08/29/2023 Resolved on 09/18/2023 1 goal linked to scheduled/document ed intervention Sepsis Disciplines: Skilled Services 08/29/2023 Resolved on 09/18/2023 1 goal linked to scheduled/document ed intervention 1 goal intervention scheduled/document ed in this visit Physician Specific Parameters Disciplines: Skilled Services 08/29/2023 Resolved on 09/18/2023 1 goal linked to scheduled/document ed intervention 1 goal intervention scheduled/document ed in this visit Risk for Falls Disciplines: Skilled Services 08/29/2023 Resolved on 09/18/2023 1 goal linked to scheduled/document ed intervention 1 goal intervention scheduled/document ed in this visit Pain Disciplines: Skilled Services 08/29/2023 Resolved on 09/18/2023 1 goal linked to scheduled/document ed intervention 1 goal intervention scheduled/document ed in this visit Discharge Disciplines: Skilled Services 08/29/2023 Resolved on 09/18/2023 1 goal linked to scheduled/document ed intervention PT Impaired muscle performance and/or ROM Disciplines: PT 08/29/2023 Resolved on 09/18/2023 1 goal linked to scheduled/document ed intervention 1 goal intervention scheduled/document ed in this visit PT Impaired mobility Disciplines: PT 08/29/2023 Resolved on 09/18/2023 2 goals linked to scheduled/document ed interventions 2 goal interventions scheduled/document ed in this visit PT Impaired gait Disciplines: PT 08/29/2023 Resolved on 09/18/2023 2 goals linked to scheduled/document ed interventions 2 goal interventions scheduled/document ed in this visit PT Neurologic Condition Disciplines: PT 08/29/2023 Resolved on 09/18/2023 1 goal linked to scheduled/document ed intervention 1 goal intervention scheduled/document ed in this visit PT Orthopedic Condition Disciplines: PT 08/29/2023 Resolved on 09/18/2023 1 goal linked to scheduled/document ed intervention 1 goal intervention scheduled/document ed in this visit PT Learning Assessment Disciplines: PT 08/29/2023 Resolved on 09/18/2023 1 goal linked to scheduled/document ed intervention 1 goal intervention scheduled/document ed in this visit PT Pulmonary Disease Disciplines: PT 08/29/2023 Resolved on 09/18/2023 1 goal linked to scheduled/document ed intervention 1 goal intervention scheduled/document ed in this visit Goals Goal Associated Problem Outcome Goal Met? Visit Notes Patient/caregiver will demonstrate ability to obtain, store, identify and administer ordered medications, keep accurate medication list in home, and adhere to medication schedule Description: Patient/caregiver will demonstrate ability to obtain, store, identify and administer ordered medications, keep accurate medication list in home, and adhere to medication schedule by 10/27/23. Medication Education Completed Yes Patient/caregiver will be able to identify and report symptoms of sepsis Description: Patient/caregiver will be able to identify signs/symptoms of sepsis infection and will verbalize actions to take if suspected by 10/27/23. Sepsis Completed Yes Patient to maintain parameters within physician-specified ranges throughout certification period Physician Specific Parameters Completed Yes Manage Risk for falls Description: Patient/caregiver will verbalize knowledge of individualized fall prevention strategies by 10/27/23. Risk for Falls Completed Yes Manage Pain Description: Patient/caregiver will verbalize knowledge and understanding of appropriate techniques to control pain, including pain medication and non-pharmacological techniques. Patient will verbalize or demonstrate an acceptable level of pain as evidenced by a pain score of 5/10 and improvement in ability to perform activities of daily living to be achieved by 10/27/23. Pain Completed Yes Manage discharge planning Description: Patient/caregiver will verbalize understanding of ongoing discharge plan provided related to disease management, arrangements for outpatient and/or community services, obtaining medications, supplies, and DME, as needed throughout certification period. Discharge Completed Yes Improved Muscle Performance and/or ROM Description: LTG: Patient will demonstrate improved muscle performance to meet functional goals as evidenced by ability to tolerate 8 min or greater standing activity, to be achieved by 09/23/23. LTG: Patient and/or caregiver will verbalize/demonstrate independence with home exercise program, to improve functional mobility, to be achieved by 09/23/23. PT Impaired muscle performance and/or ROM Completed Yes Improved Transfers Description: LTG: Patient will demonstrate safe transfers to/from bed, chair and toilet independently with AD, to be achieved by 09/23/23. LTG: Patient will demonstrate safe transfers to/from shower/tub and car with standby assistance, to be achieved by 09/23/23. PT Impaired mobility Completed Yes Improved Bed Mobility Description: LTG: Patient will demonstrate improved bed mobility, ability to position self and supine <> sit independently to be achieved by 09/23/23. PT Impaired mobility Completed Yes Improved Stair Climbing Description: LTG: Patient will demonstrate improved stair negotiation as evidenced by ascend/descend 13 steps with railing independently, to safely access all areas of the home and exit home, to be achieved by 09/23/23. PT Impaired gait Completed Yes Improved Gait Description: LTG: Patient will demonstrate improved gait ability as evidenced by ambulation 150 feet with front wheeled walker and progressing to no device if appropriate independently with AD, to return to safe household ambulation, in order to access rooms/leave home, to be achieved by 09/23/23. PT Impaired gait Completed Yes Manage Neurologic Condition Description: Improve patient and/or caregiver understanding of post surgical and/or non-surgical neurologic intervention management as evidenced by patient and/or caregiver able to verbalize, demonstrate, and teach back instruction, to be achieved by 09/23/23. PT Neurologic Condition Completed Yes Manage Orthopedic Condition Description: Improve patient and/or caregiver understanding of post surgical and/or non-surgical orthopedic intervention management as evidenced by patient and/or caregiver able to verbalize, demonstrate, and teach back instruction, to be achieved by 09/23/23. PT Orthopedic Condition Completed Yes Demonstrate understanding of education Description: STG: Patient will receive instruction on pain/edema mgmt, fall prevention/home safety, s/s of infection and when to call the MD, DVT prophylaxis, precautions and restrictions as applicable, and home exercises upon PT eval, to be achieved by 08/29/23 LTG: Patient and/or caregiver will understand educational instruction to be achieved by 09/23/23. PT Learning Assessment Completed Yes Manage Secondary Pulmonary Disease Description: Improve patient and/or caregiver understanding of secondary pulmonary disease management as evidenced by patient and/or caregiver able to verbalize, demonstrate, and teach back instruction, to be achieved by 09/23/23. PT Pulmonary Disease Completed Yes Interventions Intervention Associated Problem/Goal Status Variance Visit Notes Risk of Sepsis Description: Patient is at risk for sepsis. Monitor closely for s/s of sepsis. Problem:Sepsis Goal:Patient/caregive r will be able to identify and report symptoms of sepsis Completed SPO2 Description: Notify Dr. Diaz if pulse ox is <92% at rest. Problem:Physician Specific Parameters Goal:Patient to maintain parameters within physician-specified ranges throughout certification period Completed Instruct on individual fall risk factors and strategies to prevent falls and injuries caused by falls. Problem:Risk for Falls Goal:Manage Risk for falls Completed PT: Patient instructed on Eliminating Environmental Hazards: Keep pathways clear, Remove unsafe rugs, Move furniture from pathways and Wear supportive shoes or non-skid socks Managing Impaired Functional Mobility: Use assistive device(s): front wheeled walker for outings Managing Pain Instruct on pain and instruct on strategies to control pain Problem:Pain Goal:Manage Pain Completed patient instructed on techniques to control pain including Pharmacological measures and Non-Pharmacological measures; rest, positioning/elevation and use of thermal modalities, apply ice to affected area . Physical Therapy Therapeutic Exercises Problem:PT Impaired muscle performance and/or ROM Goal:Improved Muscle Performance and/or ROM Completed patient instructed on strengthening exercises including mid and low rows and horiz abd w/ yellow tband, x's 10 each standing heel raises, standing heel raisers, hip abd and flexion, hams curls and 1/4 squats x's 10-15each. with verbal, visual and written cues for posture and slower pace. patient instructed to perform home exercise program twice a day which included above ex. Physical Therapy Transfer Training Problem:PT Impaired mobility Goal:Improved Transfers Completed AJITH transfers with safe/proper technique Physical Therapy Bed Mobility Training Problem:PT Impaired mobility Goal:Improved Bed Mobility Completed AJITH bed mobility Physical Therapy Stair Training Problem:PT Impaired gait Goal:Improved Stair Climbing Completed up and down with rail and recip pattern Physical Therapy Gait Training Problem:PT Impaired gait Goal:Improved Gait Completed Indep amb with no device indoors and rw for outings with steady recip pattern x 150 Instruct on self-management of post surgical and/or non-surgical neurologic intervention Problem:PT Neurologic Condition Goal:Manage Neurologic Condition Completed patient instructed on instructed on when to call provider. Instruct on orthopedic precautions and weight bearing restrictions Description: Orthopedic precautions including: Post op fusion: No walking restrictions Do not lift more than 10 lbs for the first 2 weeks Gentle movements of your lower back/neck are inevitable and allowed, however, do not perform any strenuous or excessive BLTs: Bending, Lifting, Twisting of your lower back. Do not try to do too much too early. Use your common sense. Walking is the best activity, and we encourage you to walk. Problem:PT Orthopedic Condition Goal:Manage Orthopedic Condition Completed patient instructed on orthopedic precautions. Instruct and educate on knowledge deficits Problem:PT Learning Assessment Goal:Demonstrate understanding of education Completed patient verbalize and/or demonstrate understanding of physical therapy education including pain management, fall prevention strategies, home safety, functional activity and home exercise program. Education methods include: verbal cues. Instruct on signs, symptoms, and management of secondary pulmonary disease Problem:PT Pulmonary Disease Goal:Manage Secondary Pulmonary Disease Completed patient instructed on use of RPE scale, energy conservation and exercise and activity guidelines. 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 Discipline -Physical Therapy Problems Problem Description Start Date Status Goals Interve ntions Medication Education Disciplines: Skilled Services 08/29/2023 Active 1 goal linked to scheduled/document ed intervention 1 goal intervention scheduled/document ed in this visit Sepsis Disciplines: Skilled Services 08/29/2023 Active 1 goal linked to scheduled/document ed intervention 1 goal intervention scheduled/document ed in this visit Physician Specific Parameters Disciplines: Skilled Services 08/29/2023 Active 1 goal linked to scheduled/document ed intervention 1 goal intervention scheduled/document ed in this visit Risk for Falls Disciplines: Skilled Services 08/29/2023 Active 1 goal linked to scheduled/document ed intervention 1 goal intervention scheduled/document ed in this visit Pain Disciplines: Skilled Services 08/29/2023 Active 1 goal linked to scheduled/document ed intervention 1 goal intervention scheduled/document ed in this visit Discharge Disciplines: Skilled Services 08/29/2023 Active 1 goal linked to scheduled/document ed intervention 1 goal intervention scheduled/document ed in this visit PT Impaired muscle performance and/or ROM Disciplines: PT 08/29/2023 Active 1 goal linked to scheduled/document ed intervention 1 goal intervention scheduled/document ed in this visit PT Impaired mobility Disciplines: PT 08/29/2023 Active 2 goals linked to scheduled/document ed interventions 2 goal interventions scheduled/document ed in this visit PT Impaired gait Disciplines: PT 08/29/2023 Active 1 goal linked to scheduled/document ed intervention 1 goal intervention scheduled/document ed in this visit PT Neurologic Condition Disciplines: PT 08/29/2023 Active 1 goal linked to scheduled/document ed intervention 1 goal intervention scheduled/document ed in this visit PT Orthopedic Condition Disciplines: PT 08/29/2023 Active 1 goal linked to scheduled/document ed intervention 1 goal intervention scheduled/document ed in this visit PT Learning Assessment Disciplines: PT 08/29/2023 Active 1 goal linked to scheduled/document ed intervention 1 goal intervention scheduled/document ed in this visit Goals Goal Associated Problem Outcome Goal Met? Visit Notes Patient/caregiver will demonstrate ability to obtain, store, identify and administer ordered medications, keep accurate medication list in home, and adhere to medication schedule Description: Patient/caregiver will demonstrate ability to obtain, store, identify and administer ordered medications, keep accurate medication list in home, and adhere to medication schedule by 10/27/23. Medication Education No Patient/caregiver will be able to identify and report symptoms of sepsis Description: Patient/caregiver will be able to identify signs/symptoms of sepsis infection and will verbalize actions to take if suspected by 10/27/23. Sepsis No Patient to maintain parameters within physician-specified ranges throughout certification period Physician Specific Parameters No Manage Risk for falls Description: Patient/caregiver will verbalize knowledge of individualized fall prevention strategies by 10/27/23. Risk for Falls No Manage Pain Description: Patient/caregiver will verbalize knowledge and understanding of appropriate techniques to control pain, including pain medication and non-pharmacological techniques. Patient will verbalize or demonstrate an acceptable level of pain as evidenced by a pain score of 5/10 and improvement in ability to perform activities of daily living to be achieved by 10/27/23. Pain No Manage discharge planning Description: Patient/caregiver will verbalize understanding of ongoing discharge plan provided related to disease management, arrangements for outpatient and/or community services, obtaining medications, supplies, and DME, as needed throughout certification period. Discharge No Improved Muscle Performance and/or ROM Description: LTG: Patient will demonstrate improved muscle performance to meet functional goals as evidenced by ability to tolerate 8 min or greater standing activity, to be achieved by 09/23/23. LTG: Patient and/or caregiver will verbalize/demonstrate independence with home exercise program, to improve functional mobility, to be achieved by 09/23/23. PT Impaired muscle performance and/or ROM No Improved Transfers Description: LTG: Patient will demonstrate safe transfers to/from bed, chair and toilet independently with AD, to be achieved by 09/23/23. LTG: Patient will demonstrate safe transfers to/from shower/tub and car with standby assistance, to be achieved by 09/23/23. PT Impaired mobility No Improved Bed Mobility Description: LTG: Patient will demonstrate improved bed mobility, ability to position self and supine <> sit independently to be achieved by 09/23/23. PT Impaired mobility No Improved Gait Description: LTG: Patient will demonstrate improved gait ability as evidenced by ambulation 150 feet with front wheeled walker and progressing to no device if appropriate independently with AD, to return to safe household ambulation, in order to access rooms/leave home, to be achieved by 09/23/23. PT Impaired gait No Manage Neurologic Condition Description: Improve patient and/or caregiver understanding of post surgical and/or non-surgical neurologic intervention management as evidenced by patient and/or caregiver able to verbalize, demonstrate, and teach back instruction, to be achieved by 09/23/23. PT Neurologic Condition No Manage Orthopedic Condition Description: Improve patient and/or caregiver understanding of post surgical and/or non-surgical orthopedic intervention management as evidenced by patient and/or caregiver able to verbalize, demonstrate, and teach back instruction, to be achieved by 09/23/23. PT Orthopedic Condition No Demonstrate understanding of education Description: STG: Patient will receive instruction on pain/edema mgmt, fall prevention/home safety, s/s of infection and when to call the MD, DVT prophylaxis, precautions and restrictions as applicable, and home exercises upon PT eval, to be achieved by 08/29/23 LTG: Patient and/or caregiver will understand educational instruction to be achieved by 09/23/23. PT Learning Assessment No Interventions Intervention Associated Problem/Goal Status Variance Visit Notes Medication Education Description: Evaluate/instruct patient/caregiver on obtaining, storing, identifying and administering ordered medications as well as keeping accurate medication list in the home and adhereing to medication schedule Problem:Medication Education Goal:Patient/caregive r will demonstrate ability to obtain, store, identify and administer ordered medications, keep accurate medication list in home, and adhere to medication schedule Completed Patient instructed on importance of keeping accurate medication list in home. Risk of Sepsis Description: Patient is at risk for sepsis. Monitor closely for s/s of sepsis. Problem:Sepsis Goal:Patient/caregive r will be able to identify and report symptoms of sepsis Completed SPO2 Description: Notify Dr. Diaz if pulse ox is <92% at rest. Problem:Physician Specific Parameters Goal:Patient to maintain parameters within physician-specified ranges throughout certification period Completed Instruct on individual fall risk factors and strategies to prevent falls and injuries caused by falls. Problem:Risk for Falls Goal:Manage Risk for falls Completed PT: Patient instructed on Managing Impaired Functional Mobility: Use assistive device(s): rollator walker for outdoor ambulation, w/o device for household distances Instruct on pain and instruct on strategies to control pain Problem:Pain Goal:Manage Pain Completed patient instructed on techniques to control pain including Pharmacological measures and Non-Pharmacological measures; positioning/elevation and use of thermal modalities, apply ice to affected area for the following prescribed frequency: prn. Instruct on ongoing discharge plan Problem:Discharge Goal:Manage discharge planning Completed Ongoing Discharge plan: Discharge plan discussed with patient including frequency and duration for home PT and plan for transition to: outpatient therapy. Physical Therapy Therapeutic Exercises Problem:PT Impaired muscle performance and/or ROM Goal:Improved Muscle Performance and/or ROM Completed patient instructed on strengthening exercises including mid and low rows and horiz abd w/ yellow tband, x's 10 each standing heel raises, standing heel raisers, hip abd and flexion, hams curls and 1/4 squats x's 10-15each. with verbal, visual and written cues for posture and slower pace. patient instructed to perform home exercise program twice a day which included above ex. Physical Therapy Transfer Training Problem:PT Impaired mobility Goal:Improved Transfers Completed Transfer training and instruction to patient on safe transfers to and from bed with independent Physical Therapy Bed Mobility Training Problem:PT Impaired mobility Goal:Improved Bed Mobility Completed Bed mobility training and instruction to patient, including supine<>sit with independent \ Physical Therapy Gait Training Problem:PT Impaired gait Goal:Improved Gait Completed Gait training and instruction to patient on safe ambulation with no device for household distances with independent, Instruct on self-management of post surgical and/or non-surgical neurologic intervention Problem:PT Neurologic Condition Goal:Manage Neurologic Condition Completed patient instructed on instructed on when to call provider. Instruct on orthopedic precautions and weight bearing restrictions Description: Orthopedic precautions including: Post op fusion: No walking restrictions Do not lift more than 10 lbs for the first 2 weeks Gentle movements of your lower back/neck are inevitable and allowed, however, do not perform any strenuous or excessive BLTs: Bending, Lifting, Twisting of your lower back. Do not try to do too much too early. Use your common sense. Walking is the best activity, and we encourage you to walk. Problem:PT Orthopedic Condition Goal:Manage Orthopedic Condition Completed patient instructed on orthopedic precautions. Instruct and educate on knowledge deficits Problem:PT Learning Assessment Goal:Demonstrate understanding of education Completed patient verbalize and/or demonstrate understanding of physical therapy education including surgical precautions, pain management, functional activity and home exercise program. Education methods include: verbal cues. Further education required to improve knowledge and compliance with functional activity. [facility] Outpatient Procedure (Routine) - Authorized Specialty Diagnoses / Procedures Referred By Iesha t Referred To [facility] Diagnoses Iliac artery stenosis, bilateral (HCC) Procedures PVR ANK PRESS CISCO VAS LAB NON-INVAS PHYSIOLOGIC STD EXTREMITY [place] [address] [place] [address] [facility] [place] [address] [place] [address] Referral ID Status Reason Start Date Expiration Date Visits Requested Visits Authorized [id number] Authorized Auto-Generat ed Referral 01/12/2022 01/12/2023 1 1 * Outpatient Procedure (Routine) - Authorized Specialty Diagnoses / Procedures Referred By Contac t Referred To Contact [facility] [place] Diagnoses Iliac artery stenosis, bilateral (HCC) Procedures US ABD AORTA COMPLETE VAS LAB DUP-SCAN AORTA IVC ILIAC VASCL/[place] [address] [place] [id number] [address] [address] Referral ID Status Reason Start Date Expiration Date Visits Requested Visits Authorized [id number] Authorized Auto-Generat ed Referral 01/12/2022 01/12/2023 1 1 [facility] for referral (narrative)* Diagnostic Procedure Only (Routine) - Closed Specialty Diagnoses / Procedures Referred By Contac t Referred To Contact XR IMAGING Diagnoses Spinal stenosis of lumbar region with neurogenic claudication Procedures XR LUMBAR LIMITED 2V AP/LAT RADEX SPINE LUMBOSACRAL 2/3 [place] [address] [place] [address] Xr Imaging Referral ID Status Reason Start Date Expiration Date V isits Requested Visits Authorized [id number] Closed Auto-Generate d Referral 01/20/2022 02/19/2023 1 1 [facility] for referral (narrative)* Diagnostic Procedure Only (Routine) - Closed Specialty Diagnoses / Procedures Referred By Contac t Referred To Contact XR IMAGING Diagnoses Spinal stenosis of lumbar region with neurogenic claudication Procedures XR LUMBAR LIMITED 2V AP/LAT RADEX SPINE LUMBOSACRAL 2/3 [place] [address] [address] [place] [address] Xr Imaging Referral ID Status Reason Start Date Expiration Date V isits Requested Visits Authorized [id number] Closed Auto-Generate d Referral 01/20/2022 02/19/2023 1 1 [facility] for referral (narrative)* Outpatient Procedure (Routine) - Authorized Specialty Diagnoses / Procedures Referred By Contac t Referred To Contact [facility] Diagnoses Radiculopathy, lumbar region Procedures EMG(NEURO/NI) NERVE CONDUCTION STUDIES 9-10 [place] [address] [address] [place] [address] Neurological [place] [id number] Referral ID Status Reason Start Date Expiration Date Visits Requested Visits Authorized [id number] Authorized Auto-Generat ed Referral 03/10/2022 03/10/2023 1 1 [facility] for referral (narrative)* Outpatient Procedure (Routine) - Authorized Specialty Diagnoses / Procedures Referred By Contac t Referred To Contact [facility] Diagnoses Iliac artery stenosis, bilateral (HCC) Procedures PVR LEG CISCO VAS LAB NON-INVASIVE PHYSIOLOGIC STUDY EXTREMITY 3 [place] [address] [place] [address] [facility] [place] [id number] Referral ID Status Reason Start Date Expiration Date Visits Requested Visits Authorized [id number] Authorized Auto-Generat ed Referral 2 05/31/2023 1 1 * Outpatient Procedure (Routine) - Authorized Specialty Diagnoses / Procedures Referred By Contac t Referred To Contact [facility] Diagnoses Iliac artery stenosis, bilateral (HCC) Procedures US ABD AORTA COMPLETE VAS LAB DUP-SCAN AORTA IVC ILIAC VASCL/[place] [address] [place] [address] [facility] [place] [address] [place] [address] Referral ID Status Reason Start Date Expiration Date Visits Requested Visits Authorized [id number] Authorized Auto-Generat ed Referral 2 05/31/2023 1 1 [facility] for referral (narrative)* Diagnostic Procedure Only (Routine) - Closed Specialty Diagnoses / Procedures Referred By Contac t Referred To Contact XR IMAGING Diagnoses Arthritis of big toe Procedures XR FOOT GENERAL 3V AP/LAT/OBL LEFT RADEX FOOT COMPLETE MINIMUM 3 VIEWS Leobardo Bundy [address] [place] [address] Xr Imaging Referral ID Status Reason Start Date Expiration Date V isits Requested Visits Authorized [id number] Closed Auto-Generate d Referral 06/16/2022 07/16/2023 1 1 [facility] for referral (narrative)* Diagnostic Procedure Only (Routine) - Pending Review Specialty Diagnoses / Procedures Referred By Contac t Referred To Contact BR IMAGING Diagnoses Encounter for screening mammogram for breast cancer Procedures DONNELL SCREENING SCREENING MAMMOGRAPHY BI 2-VIEW BREAST INC CAD Elvin Diaz MD [address] [place] [address] [facility] [address] [place] [address] Referral ID Status Reason Start Date Expiration Date Visits Requested Visits Authorized [id number] Pending Review Auto-Generat ed Referral 08/16/2023 09/14/2024 1 1 [facility] for referral (narrative)* Diagnostic Procedure Only (Routine) - Closed Specialty Diagnoses / Procedures Referred By Contac t Referred To Contact XR IMAGING Diagnoses Spinal stenosis, lumbar region with neurogenic claudication Procedures XR LUMBAR LIMITED 2V AP/LAT RADEX SPINE LUMBOSACRAL 2/3 VIEWS Becky Sun PA-C [address] [place] [address] [place] [address] Referral ID Status Reason Start Date Expiration Date V isits Requested Visits Authorized [id number] Closed Auto-Generate d Referral 11/21/2023 12/20/2024 1 1 [facility] for referral (narrative)* Diagnostic Procedure Only (Routine) - Closed Specialty Diagnoses / Procedures Referred By Contac t Referred To Contact XR IMAGING Diagnoses Spinal stenosis, lumbar region with neurogenic claudication Procedures XR LUMBAR LIMITED 2V AP/LAT RADEX SPINE LUMBOSACRAL 2/3 VIEWS Becky Sun PA-C [address] [place] [phone] [place] [address] Referral ID Status Reason Start Date Expiration Date V isits Requested Visits Authorized [id number] Closed Auto-Generate d Referral 11/21/2023 12/20/2024 1 1 [facility] for referral (narrative)* Diagnostic Procedure Only (Routine) - Closed Specialty Diagnoses / Procedures Referred By Contac t Referred To Contact XR IMAGING Diagnoses Arthritis of big toe Procedures XR FOOT GENERAL 3V AP/LAT/OBL LEFT RADEX FOOT COMPLETE MINIMUM 3 VIEWS Leobardo Bundy [address] [place] [address] [place] [address] Referral ID Status Reason Start Date Expiration Date V isits Requested Visits Authorized [id number] Closed Auto-Generate d Referral 06/16/2022 07/16/2023 1 1 [facility] for referral (narrative)* Diagnostic Procedure Only (Routine) - Closed Specialty Diagnoses / Procedures Referred By Contac t Referred To Contact XR IMAGING Diagnoses Spinal stenosis, lumbar region with neurogenic claudication Procedures XR LUMBAR LIMITED 2V AP/LAT X-RAY L-S SPINE AP/LATERAL Cristóbal Knowles MD [address] [place] [id number] X[facility] Imaging [place] [address] Referral ID Status Reason Start Date Expiration Date V isits Requested Visits Authorized [id number] Closed Auto-Generate d Referral 05/13/2021 06/12/2022 1 1 [facility] for visit Narrative* Diagnostic Procedure Only (Routine) - Closed Specialty Diagnoses / Procedures Referred By Iesha singh Referred To Contact XR IMAGING Diagnoses Spinal stenosis of lumbar region with neurogenic claudication Procedures XR LUMBAR LIMITED 2V AP/LAT RADEX SPINE LUMBOSACRAL 2/[place] [address] [address] [address] [place] [address] Xr Imaging Referral ID Status Reason Start Date Expiration Date V isits Requested Visits Authorized [id number] Closed Auto-Generate d Referral 01/20/2022 02/19/2023 1 1 [facility] for visit Narrative* Outpatient Procedure (Routine) - Closed Specialty Diagnoses / Procedures Referred By Iesha singh Referred To Contact [facility] Diagnoses Radiculopathy, lumbar region Procedures EMG(NEURO/NI) NERVE CONDUCTION STUDIES 9-[place] [address] [facility] [address] [place] [address] [facility] [place] [address] [place] [address] Referral ID Status Reason Start Date Expiration Date V isits Requested Visits Authorized [id number] Closed Auto-Generate d Referral 03/10/2022 03/10/2023 1 1 [facility] for visit Narrative* Diagnostic Procedure Only (Routine) - Closed Specialty Diagnoses / Procedures Referred By Iesha singh Referred To Contact BR IMAG[facility] Diagnoses Encounter for screening mammogram for breast cancer Procedures DONNELL SCREENING SCREENING MAMMOGRAPHY BI 2-VIEW BREAST INC CAD [place], [place], 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 [address] [place] [address] [facility] [address] [place] [address] Referral ID Status Reason Start Date Expiration Date V isits Requested Visits Authorized [id number] Closed Auto-Generate d Referral 07/05/2021 08/04/2022 1 1 [facility] for visit Narrative* Diagnostic Procedure Only (Routine) - Closed Specialty Diagnoses / Procedures Referred By Contac t Referred To Contact [facility] IM[facility] Diagnoses Encounter for screening mammogram for breast cancer Procedures DONNELL SCREENING SCREENING MAMMOGRAPHY BI 2-VIEW BREAST INC CAD Elvin Diaz MD [address] [place] [address] [facility] [address] [place] [address] Referral ID Status Reason Start Date Expiration Date V isits Requested Visits Authorized [id number] Closed Auto-Generate d Referral 08/16/2023 09/14/2024 1 1 [facility] for visit Narrative* Diagnostic Procedure Only (Routine) - Closed Specialty Diagnoses / Procedures Referred By Contac t Referred To Contact XR IMAGING Diagnoses Spinal stenosis, lumbar region with neurogenic claudication Procedures XR LUMBAR LIMITED 2V AP/LAT RADEX SPINE LUMBOSACRAL 2/3 VIEWS Becky Sun PA-C [address] [place] [address] Xr Imaging [facility]95 Referral ID Status Reason Start Date Expiration Date V isits Requested Visits Authorized [id number] Closed Auto-Generate d Referral 11/21/2023 12/20/2024 1 1 [facility] for visit Narrative* Diagnostic Procedure Only (Routine) - Closed Specialty Diagnoses / Procedures Referred By Contac t Referred To Contact XR IMAGING Diagnoses Arthritis of big toe Procedures XR FOOT GENERAL 3V AP/LAT/OBL LEFT RADEX FOOT COMPLETE MINIMUM 3 VIEWS Leobardo Bundy [address] [place] [address] [place] [address] Referral ID Status Reason Start Date Expiration Date V isits Requested Visits Authorized [id number] Closed Auto-Generate d Referral 06/16/2022 07/16/2023 1 1 [facility] for visit Narrative* Diagnostic Procedure Only (Routine) - Closed Specialty Diagnoses / Procedures Referred By Contac t Referred To Contact XR IMAGING Diagnoses Spinal stenosis, lumbar region with neurogenic claudication Procedures XR LUMBAR LIMITED 2V AP/LAT X-RAY L-S SPINE AP/LATERAL Cristóbal Knowles MD [address] [place] [id number] Xr Imaging [place] [address] Referral ID Status Reason Start Date Expiration Date V isits Requested Visits Authorized [id number] Closed Auto-Generate d Referral 05/13/2021 06/12/2022 1 1 [facility] for visit Narrative* Diagnostic Procedure Only (Urgent) - Closed Specialty Diagnoses / Procedures Referred By Iesha singh Referred To Contact XR IMAGING Diagnoses Pain of left thumb Procedures XR HAND GENERAL 3V PA/LAT/OBL LEFT RADEX HAND MINIMUM 3 VIEWS Africa Caba PA [address] [place] [address] Phone: tel: fax: XR IMAGING [facility]95 Referral ID Status Reason Start Date Expiration Date V isits Requested Visits Authorized [id number] Closed Auto-Generate d Referral 02/21/2025 03/23/2026 1 1 [facility] Advance Directives No Advanced Directives Records FoundDocuments on File Type Date Recorded Patient Biology Manager Expl anation Advance Directive(s) 08/20/2021 8:53 AM Advance Directive(s) 08/10/2021 3:41 PM Documents on File Type Date Recorded Patient Biology Manager Expl anation Advance Directive(s) 08/20/2021 8:53 AM Advance Directive(s) 08/10/2021 3:41 PM Documents on File Type Date Recorded Patient Biology Manager Expl anation Advance Directive(s) 12/20/2021 3:19 PM Advance Directive(s) 08/20/2021 8:53 AM Advance Directive(s) 08/10/2021 3:41 PM Documents on File Type Date Recorded Patient Biology Manager Expl anation Advance Directive(s) 01/06/2022 6:56 PM NATASHA RVIEW Advance Directive(s) 12/20/2021 3:19 PM Advance Directive(s) 08/20/2021 8:53 AM Advance Directive(s) 08/10/2021 3:41 PM Documents on File Type Date Recorded Patient Biology Manager Expl anation Advance Directive(s) 01/06/2022 6:56 PM NATASHA RVIEW Advance Directive(s) 12/20/2021 3:19 PM Advance Directive(s) 08/20/2021 8:53 AM Advance Directive(s) 08/10/2021 3:41 PM Documents on File Type Date Recorded Patient Biology Manager Expl anation Advance Directive(s) 02/23/2022 7:00 AM Advance Directive(s) 01/06/2022 6:56 PM NATASHA RVIEW Advance Directive(s) 12/20/2021 3:19 PM Advance Directive(s) 08/20/2021 8:53 AM Advance Directive(s) 08/10/2021 3:41 PM Documents on File Type Date Recorded Patient Biology Manager Expl anation Advance Directive(s) 03/03/2022 5:44 PM Advance Directive(s) 02/23/2022 7:00 AM Advance Directive(s) 01/06/2022 6:56 PM NATASHA RVIEW Advance Directive(s) 12/20/2021 3:19 PM Advance Directive(s) 08/20/2021 8:53 AM Advance Directive(s) 08/10/2021 3:41 PM Advance Directive Response Recorded Date/ Time Living Will No March 28 4:30pm Power of Fryer Operator No March 28, 2 021 4:30pm Latest Code Status on File Code Status Date Activated Date Inactivated Comments Full Code 08/29/2023 5:15 PM Latest Code Status on File Code Status Date Activated Date Inactivated Comments Full Code 08/29/2023 5:15 PM Date Activated Date Inactivated Comments 08/29/2023 5:15 PM Date Activated Date Inactivated Comments 08/29/2023 5:15 PM Date Activated Date Inactivated Comments 08/29/2023 5:15 PM 12/24/2024 12:09 PM Date Activated Date Inactivated Comments 08/29/2023 5:15 PM 12/24/2024 12:09 PM Reason for Referral Specialty Diagnoses / Procedures Referred By Iesha t Referred To Contact Diagnoses Pre-op examination Procedures REFER TO PACC - PRE ANESTHESIA CONSULTATION CLINIC OFFICE/OUTPATIENT [facility] 60-74 MINUTES Libby White PA-C [id number] [phone] Referral ID Status Reason Start Date Expiration Date Visits Requested Visits Authorized [id number] Authorized PCP Requested Referral 11/08/2021 11/08/2022 1 1 Specialty Diagnoses / Procedures Referred By Contac t Referred To Contact Diagnoses Pre-op testing Procedures REFER TO PACC - PRE ANESTHESIA CONSULTATION CLINIC OFFICE/OUTPATIENT [facility] 60-74 MINUTES Becky Sun PA-C [address] [phone] Referral ID Status Reason Start Date Expiration Date Visits Requested Visits Authorized [id number] Authorized PCP Requested Referral 01/27/2022 01/27/2023 1 1 Specialty Diagnoses / Procedures Referred By Contac t Referred To Contact CT IMAGING Diagnoses Spinal stenosis of lumbar region with neurogenic claudication Procedures CT LUMBAR SPINE WO IVCON CT LUMBAR SPINE W/[place] [address] [facility] [place] [address] Ct Imaging Referral ID Status Reason Start Date Expiration Date V isits Requested Visits Authorized [id number] Open Auto-Generate d Referral 04/21/2022 05/21/2023 1 1 Referral ID Status Reason Start Date Expiration Date V isits Requested Visits Authorized [id number] Closed Auto-Generate d Referral 04/21/2022 06/05/2022 1 1 Specialty Diagnoses / Procedures Referred By Contac t Referred To Contact Diagnoses Preoperative examination Procedures REFER TO PACC - PRE ANESTHESIA CONSULTATION CLINIC OFFICE/OUTPATIENT [facility] 60-74 MINUTES Becky Sun PA-C [address] [phone] Referral ID Status Reason Start Date Expiration Date Visits Requested Visits Authorized [id number] Authorized PCP Requested Referral 05/09/2022 05/09/2023 1 1 Specialty Diagnoses / Procedures Referred By Contac t Referred To Contact Diagnoses Osteopenia of lumbar spine Procedures CONSULT TO ENDO METABOLIC BONE OFFICE/OUTPATIENT [facility] 60-74 MINUTES Alden Dooley PA-C [address] [place] [address] Referral ID Status Reason Start Date Expiration Date Visits Requested Visits Authorized [id number] Authorized PCP Requested Referral 05/11/2022 05/11/2023 1 1 Specialty Diagnoses / Procedures Referred By Contac t Referred To Contact Orthopedics Diagnoses Ganglion cyst of finger Procedures CONSULT TO ORTHOPAEDICS OFFICE/OUTPATIENT [facility] 60-74 MINUTES Vanessa, Nusrat, 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 [address] [place] [address] Referral ID Status Reason Start Date Expiration Date Visits Requested Visits Authorized [id number] Authorized PCP Requested Referral 06/08/2022 06/08/2023 1 1 Specialty Diagnoses / Procedures Referred By Contac t Referred To Contact CT IMAGING Diagnoses Former smoker Encounter for screening for lung cancer Procedures CT LUNG SCREEN WO IVCON COMPUTED TOMOGRAPHY THORAX LW DOSE LNG CA SCR Silvia- Leila Jordan, 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 [address] [place] [address] Ct Imaging Referral ID Status Reason Start Date Expiration Date Visits Requested Visits Authorized [id number] Pending Review Auto-Generat ed Referral 2 08/05/2023 1 1 Referral ID Status Reason Start Date Expiration Date Visits Requested Visits Authorized [id number] Waiting for Online Response Auto-Generat ed Referral 2 08/17/2023 1 1 Specialty Diagnoses / Procedures Referred By Contac t Referred To Contact [facility] Diagnoses Spinal stenosis of lumbar region with neurogenic claudication Procedures CONSULT TO PHYSICAL THERAPY PHYSICAL THERAPY EVALUATION HIGH COMPLEX 45 MINS Eyal, [place] [address] [facility] [place] [address] [facility] [address] [place] [address] Referral ID Status Reason Start Date Expiration Date Visits Requested Visits Authorized [id number] Pending Review Auto-Generat ed Referral 07/18/2023 1 1 Specialty Diagnoses / Procedures Referred By Contac t Referred To Contact Elvin Diaz MD [address] [place] [address] Referral ID Status Reason Start Date Expiration Date Visits Re quested Visits Authorized [id number] Closed 1 1 Referral ID Status Reason Start Date Expiration Date Visits Requested Visits Authorized [id number] Additional Clinical Info Needed Auto-Generat ed Referral 02/13/2023 03/14/2024 1 1 Specialty Diagnoses / Procedures Referred By Contac t Referred To Contact MR IMAGING Diagnoses Spinal stenosis of lumbar region with neurogenic claudication Procedures MRI LUMBAR SPINE WO IVCON MRI SPINAL CANAL LUMBAR W/[place] [address] [facility] [phone] Mr Imaging [facility] Referral ID Status Reason Start Date Expiration Date Visits Requested Visits Authorized [id number] Pending Review Auto-Generat ed Referral 03/23/2023 04/21/2024 1 1 Referral ID Status Reason Start Date Expiration Date V isits Requested Visits Authorized [id number] Closed Auto-Generate d Referral 04/13/2023 06/12/2023 1 1 Specialty Diagnoses / Procedures Referred By Contac t Referred To Contact CT IMAGING Diagnoses Spinal stenosis of lumbar region with neurogenic claudication Procedures CT LUMBAR SPINE WO IVCON CT LUMBAR SPINE W/[place] [address] [facility] [place] [address] Ct Imaging [facility] Referral ID Status Reason Start Date Expiration Date V isits Requested Visits Authorized [id number] Closed Auto-Generate d Referral 07/18/2022 09/01/2022 1 1 Specialty Diagnoses / Procedures Referred By Contac t Referred To Contact Gastroenterology Diagnoses Gastroesophageal reflux disease without esophagitis Procedures CONSULT TO GASTROENTEROLOGY OFFICE/OUTPATIENT [facility] 60 MINUTES Nusrat Alva, 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 [address] [place] [address] Referral ID Status Reason Start Date Expiration Date Visits Requested Visits Authorized [id number] Authorized PCP Requested Referral 04/04/2024 04/04/2025 1 1 Specialty Diagnoses / Procedures Referred By Contac t Referred To Contact Gynecology Diagnoses Well woman exam Procedures CONSULT TO GYNECOLOGY OFFICE/OUTPATIENT [facility] 60 MINUTES Nusrat Alva, 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 [address] [place] [address] Referral ID Status Reason Start Date Expiration Date Visits Requested Visits Authorized [id number] Authorized PCP Requested Referral Auto-Generate d Referral 04/04/2024 04/04/2025 1 1 Specialty Diagnoses / Procedures Referred By Contac t Referred To Contact Endocrinology Diagnoses Hirsutism Procedures CONSULT TO ENDOCRINOLOGY OFFICE/OUTPATIENT [facility] 60 MINUTES Nusrat Alva, 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 [address] [place] [address] Referral ID Status Reason Start Date Expiration Date Visits Requested Visits Authorized [id number] Authorized PCP Requested Referral 04/04/2024 04/04/2025 1 1 Referral ID Status Reason Start Date Expiration Date Visits Requested Visits Authorized [id number] Pending Review Auto-Generat ed Referral 09/02/2024 09/02/2025 1 1 Referral ID Status Reason Start Date Expiration Date Visits Requested Visits Authorized [id number] Pending Review Auto-Generat ed Referral 09/02/2024 10/02/2025 1 1 Chief Complaint and Reason for Visit Chief Complaint LUMBAR STENOSIS W/NE UROGENIC CALLUD.RX HERE Chief Complaint LUMBAR STENOSIS W/NE UROGENIC CALLUD.RX HERE LUMBAR STENOSIS W/NEUROGENIC CALLUD.RX HERE Family History No Family History Records Found Relationship Condition Age at Onset Recorded Date/T agusto father Diabetes mellitus Unknown Cardiac disease Unknown Myocardial infarction Unknown mother Malignant neoplasm Unknown brother Kidney disorder Unknown Summary Purpose Additional Source Comments Source Comments (unrecognize d section and content) In the event this informatio n is protected by the Federal Confidentiality of Alcohol and Drug Abuse Patient Records regulations: The Federal rules restrict any use of the information to criminally investigate or prosecute any alcohol or drug abuse patient.[facility] the event this information is protected by the Federal Confidentiality of Alcohol and Drug Abuse Patient Records regulations: The Federal rules restrict any use of the information to criminally investigate or prosecute any alcohol or drug abuse patient.[facility] the event this information is protected by the Federal Confidentiality of Alcohol and Drug Abuse Patient Records regulations: The Federal rules restrict any use of the information to criminally investigate or prosecute any alcohol or drug abuse patient.[facility] the event this information is protected by the Federal Confidentiality of Alcohol and Drug Abuse Patient Records regulations: The Federal rules restrict any use of the information to criminally investigate or prosecute any alcohol or drug abuse patient.[facility] the event this information is protected by the Federal Confidentiality of Alcohol and Drug Abuse Patient Records regulations: The Federal rules restrict any use of the information to criminally investigate or prosecute any alcohol or drug abuse patient.[facility]In the event this information is protected by the Federal Confidentiality of Alcohol and Drug Abuse Patient Records regulations: The Federal rules restrict any use of the information to criminally investigate or prosecute any alcohol or drug abuse patient.[facility]In the event this information is protected by the Federal Confidentiality of Alcohol and Drug Abuse Patient Records regulations: The Federal rules restrict any use of the information to criminally investigate or prosecute any alcohol or drug abuse patient.[facility] the event this information is protected by the Federal Confidentiality of Alcohol and Drug Abuse Patient Records regulations: The Federal rules restrict any use of the information to criminally investigate or prosecute any alcohol or drug abuse patient.[facility]In the event this information is protected by the Federal Confidentiality of Alcohol and Drug Abuse Patient Records regulations: The Federal rules restrict any use of the information to criminally investigate or prosecute any alcohol or drug abuse patient.[facility] HospitalIn the event this information is protected by the Federal Confidentiality of Alcohol and Drug Abuse Patient Records regulations: The Federal rules restrict any use of the information to criminally investigate or prosecute any alcohol or drug abuse patient.[facility]In the event this information is protected by the Federal Confidentiality of Alcohol and Drug Abuse Patient Records regulations: The Federal rules restrict any use of the information to criminally investigate or prosecute any alcohol or drug abuse patient.[facility] HospitalIn the event this information is protected by the Federal Confidentiality of Alcohol and Drug Abuse Patient Records regulations: The Federal rules restrict any use of the information to criminally investigate or prosecute any alcohol or drug abuse patient.[facility]In the event this information is protected by the Federal Confidentiality of Alcohol and Drug Abuse Patient Records regulations: The Federal rules restrict any use of the information to criminally investigate or prosecute any alcohol or drug abuse patient.[facility] HospitalIn the event this information is protected by the Federal Confidentiality of Alcohol and Drug Abuse Patient Records regulations: The Federal rules restrict any use of the information to criminally investigate or prosecute any alcohol or drug abuse patient.[facility] HospitalIn the event this information is protected by the Federal Confidentiality of Alcohol and Drug Abuse Patient Records regulations: The Federal rules restrict any use of the information to criminally investigate or prosecute any alcohol or drug abuse patient.[facility] HospitalIn the event this information is protected by the Federal Confidentiality of Alcohol and Drug Abuse Patient Records regulations: The Federal rules restrict any use of the information to criminally investigate or prosecute any alcohol or drug abuse patient.[facility] HospitalIn the event this information is protected by the Federal Confidentiality of Alcohol and Drug Abuse Patient Records regulations: The Federal rules restrict any use of the information to criminally investigate or prosecute any alcohol or drug abuse patient.[facility] HospitalIn the event this information is protected by the Federal Confidentiality of Alcohol and Drug Abuse Patient Records regulations: The Federal rules restrict any use of the information to criminally investigate or prosecute any alcohol or drug abuse patient.[facility] HospitalIn the event this information is protected by the Federal Confidentiality of Alcohol and Drug Abuse Patient Records regulations: The Federal rules restrict any use of the information to criminally investigate or prosecute any alcohol or drug abuse patient.[facility] HospitalIn the event this information is protected by the Federal Confidentiality of Alcohol and Drug Abuse Patient Records regulations: The Federal rules restrict any use of the information to criminally investigate or prosecute any alcohol or drug abuse patient.[facility] HospitalIn the event this information is protected by the Federal Confidentiality of Alcohol and Drug Abuse Patient Records regulations: The Federal rules restrict any use of the information to criminally investigate or prosecute any alcohol or drug abuse patient.[facility] HospitalIn the event this information is protected by the Federal Confidentiality of Alcohol and Drug Abuse Patient Records regulations: The Federal rules restrict any use of the information to criminally investigate or prosecute any alcohol or drug abuse patient.[facility] HospitalIn the event this information is protected by the Federal Confidentiality of Alcohol and Drug Abuse Patient Records regulations: The Federal rules restrict any use of the information to criminally investigate or prosecute any alcohol or drug abuse patient.[facility] HospitalIn the event this information is protected by the Federal Confidentiality of Alcohol and Drug Abuse Patient Records regulations: The Federal rules restrict any use of the information to criminally investigate or prosecute any alcohol or drug abuse patient.[facility] HospitalIn the event this information is protected by the Federal Confidentiality of Alcohol and Drug Abuse Patient Records regulations: The Federal rules restrict any use of the information to criminally investigate or prosecute any alcohol or drug abuse patient.[facility] HospitalIn the event this information is protected by the Federal Confidentiality of Alcohol and Drug Abuse Patient Records regulations: The Federal rules restrict any use of the information to criminally investigate or prosecute any alcohol or drug abuse patient.[facility] HospitalIn the event this information is protected by the Federal Confidentiality of Alcohol and Drug Abuse Patient Records regulations: The Federal rules restrict any use of the information to criminally investigate or prosecute any alcohol or drug abuse patient.[facility] HospitalIn the event this information is protected by the Federal Confidentiality of Alcohol and Drug Abuse Patient Records regulations: The Federal rules restrict any use of the information to criminally investigate or prosecute any alcohol or drug abuse patient.[facility] HospitalIn the event this information is protected by the Federal Confidentiality of Alcohol and Drug Abuse Patient Records regulations: The Federal rules restrict any use of the information to criminally investigate or prosecute any alcohol or drug abuse patient.[facility] HospitalIn the event this information is protected by the Federal Confidentiality of Alcohol and Drug Abuse Patient Records regulations: The Federal rules restrict any use of the information to criminally investigate or prosecute any alcohol or drug abuse patient.[facility] HospitalIn the event this information is protected by the Federal Confidentiality of Alcohol and Drug Abuse Patient Records regulations: The Federal rules restrict any use of the information to criminally investigate or prosecute any alcohol or drug abuse patient.[facility] HospitalIn the event this information is protected by the Federal Confidentiality of Alcohol and Drug Abuse Patient Records regulations: The Federal rules restrict any use of the information to criminally investigate or prosecute any alcohol or drug abuse patient.[facility] the event this information is protected by the Federal Confidentiality of Alcohol and Drug Abuse Patient Records regulations: The Federal rules restrict any use of the information to criminally investigate or prosecute any alcohol or drug abuse patient.[facility] HospitalIn the event this information is protected by the Federal Confidentiality of Alcohol and Drug Abuse Patient Records regulations: The Federal rules restrict any use of the information to criminally investigate or prosecute any alcohol or drug abuse patient.[facility] HospitalIn the event this information is protected by the Federal Confidentiality of Alcohol and Drug Abuse Patient Records regulations: The Federal rules restrict any use of the information to criminally investigate or prosecute any alcohol or drug abuse patient.[facility] HospitalIn the event this information is protected by the Federal Confidentiality of Alcohol and Drug Abuse Patient Records regulations: The Federal rules restrict any use of the information to criminally investigate or prosecute any alcohol or drug abuse patient.[facility] HospitalIn the event this information is protected by the Federal Confidentiality of Alcohol and Drug Abuse Patient Records regulations: The Federal rules restrict any use of the information to criminally investigate or prosecute any alcohol or drug abuse patient.[facility] HospitalIn the event this information is protected by the Federal Confidentiality of Alcohol and Drug Abuse Patient Records regulations: The Federal rules restrict any use of the information to criminally investigate or prosecute any alcohol or drug abuse patient.[facility] HospitalIn the event this information is protected by the Federal Confidentiality of Alcohol and Drug Abuse Patient Records regulations: The Federal rules restrict any use of the information to criminally investigate or prosecute any alcohol or drug abuse patient.[facility] HospitalIn the event this information is protected by the Federal Confidentiality of Alcohol and Drug Abuse Patient Records regulations: The Federal rules restrict any use of the information to criminally investigate or prosecute any alcohol or drug abuse patient.[facility] HospitalIn the event this information is protected by the Federal Confidentiality of Alcohol and Drug Abuse Patient Records regulations: The Federal rules restrict any use of the information to criminally investigate or prosecute any alcohol or drug abuse patient.[facility] HospitalIn the event this information is protected by the Federal Confidentiality of Alcohol and Drug Abuse Patient Records regulations: The Federal rules restrict any use of the information to criminally investigate or prosecute any alcohol or drug abuse patient.[facility] HospitalIn the event this information is protected by the Federal Confidentiality of Alcohol and Drug Abuse Patient Records regulations: The Federal rules restrict any use of the information to criminally investigate or prosecute any alcohol or drug abuse patient.[facility] HospitalIn the event this information is protected by the Federal Confidentiality of Alcohol and Drug Abuse Patient Records regulations: The Federal rules restrict any use of the information to criminally investigate or prosecute any alcohol or drug abuse patient.[facility] HospitalIn the event this information is protected by the Federal Confidentiality of Alcohol and Drug Abuse Patient Records regulations: The Federal rules restrict any use of the information to criminally investigate or prosecute any alcohol or drug abuse patient.[facility] HospitalIn the event this information is protected by the Federal Confidentiality of Alcohol and Drug Abuse Patient Records regulations: The Federal rules restrict any use of the information to criminally investigate or prosecute any alcohol or drug abuse patient.[facility] HospitalIn the event this information is protected by the Federal Confidentiality of Alcohol and Drug Abuse Patient Records regulations: The Federal rules restrict any use of the information to criminally investigate or prosecute any alcohol or drug abuse patient.[facility] HospitalIn the event this information is protected by the Federal Confidentiality of Alcohol and Drug Abuse Patient Records regulations: The Federal rules restrict any use of the information to criminally investigate or prosecute any alcohol or drug abuse patient.[facility] HospitalIn the event this information is protected by the Federal Confidentiality of Alcohol and Drug Abuse Patient Records regulations: The Federal rules restrict any use of the information to criminally investigate or prosecute any alcohol or drug abuse patient.[facility] HospitalIn the event this information is protected by the Federal Confidentiality of Alcohol and Drug Abuse Patient Records regulations: The Federal rules restrict any use of the information to criminally investigate or prosecute any alcohol or drug abuse patient.[facility] HospitalIn the event this information is protected by the Federal Confidentiality of Alcohol and Drug Abuse Patient Records regulations: The Federal rules restrict any use of the information to criminally investigate or prosecute any alcohol or drug abuse patient.[facility] HospitalIn the event this information is protected by the Federal Confidentiality of Alcohol and Drug Abuse Patient Records regulations: The Federal rules restrict any use of the information to criminally investigate or prosecute any alcohol or drug abuse patient.[facility] HospitalIn the event this information is protected by the Federal Confidentiality of Alcohol and Drug Abuse Patient Records regulations: The Federal rules restrict any use of the information to criminally investigate or prosecute any alcohol or drug abuse patient.[facility] HospitalIn the event this information is protected by the Federal Confidentiality of Alcohol and Drug Abuse Patient Records regulations: The Federal rules restrict any use of the information to criminally investigate or prosecute any alcohol or drug abuse patient.[facility] HospitalIn the event this information is protected by the Federal Confidentiality of Alcohol and Drug Abuse Patient Records regulations: The Federal rules restrict any use of the information to criminally investigate or prosecute any alcohol or drug abuse patient.[facility] the event this information is protected by the Federal Confidentiality of Alcohol and Drug Abuse Patient Records regulations: The Federal rules restrict any use of the information to criminally investigate or prosecute any alcohol or drug abuse patient.[facility] HospitalIn the event this information is protected by the Federal Confidentiality of Alcohol and Drug Abuse Patient Records regulations: The Federal rules restrict any use of the information to criminally investigate or prosecute any alcohol or drug abuse patient.[facility] HospitalIn the event this information is protected by the Federal Confidentiality of Alcohol and Drug Abuse Patient Records regulations: The Federal rules restrict any use of the information to criminally investigate or prosecute any alcohol or drug abuse patient.[facility] HospitalIn the event this information is protected by the Federal Confidentiality of Alcohol and Drug Abuse Patient Records regulations: The Federal rules restrict any use of the information to criminally investigate or prosecute any alcohol or drug abuse patient.[facility] HospitalIn the event this information is protected by the Federal Confidentiality of Alcohol and Drug Abuse Patient Records regulations: The Federal rules restrict any use of the information to criminally investigate or prosecute any alcohol or drug abuse patient.[facility] HospitalIn the event this information is protected by the Federal Confidentiality of Alcohol and Drug Abuse Patient Records regulations: The Federal rules restrict any use of the information to criminally investigate or prosecute any alcohol or drug abuse patient.[facility] HospitalIn the event this information is protected by the Federal Confidentiality of Alcohol and Drug Abuse Patient Records regulations: The Federal rules restrict any use of the information to criminally investigate or prosecute any alcohol or drug abuse patient.[facility] HospitalIn the event this information is protected by the Federal Confidentiality of Alcohol and Drug Abuse Patient Records regulations: The Federal rules restrict any use of the information to criminally investigate or prosecute any alcohol or drug abuse patient.[facility] HospitalIn the event this information is protected by the Federal Confidentiality of Alcohol and Drug Abuse Patient Records regulations: The Federal rules restrict any use of the information to criminally investigate or prosecute any alcohol or drug abuse patient.[facility] HospitalIn the event this information is protected by the Federal Confidentiality of Alcohol and Drug Abuse Patient Records regulations: The Federal rules restrict any use of the information to criminally investigate or prosecute any alcohol or drug abuse patient.[facility] HospitalIn the event this information is protected by the Federal Confidentiality of Alcohol and Drug Abuse Patient Records regulations: The Federal rules restrict any use of the information to criminally investigate or prosecute any alcohol or drug abuse patient.[facility] HospitalIn the event this information is protected by the Federal Confidentiality of Alcohol and Drug Abuse Patient Records regulations: The Federal rules restrict any use of the information to criminally investigate or prosecute any alcohol or drug abuse patient.[facility] HospitalIn the event this information is protected by the Federal Confidentiality of Alcohol and Drug Abuse Patient Records regulations: The Federal rules restrict any use of the information to criminally investigate or prosecute any alcohol or drug abuse patient.[facility] HospitalIn the event this information is protected by the Federal Confidentiality of Alcohol and Drug Abuse Patient Records regulations: The Federal rules restrict any use of the information to criminally investigate or prosecute any alcohol or drug abuse patient.[facility] HospitalIn the event this information is protected by the Federal Confidentiality of Alcohol and Drug Abuse Patient Records regulations: The Federal rules restrict any use of the information to criminally investigate or prosecute any alcohol or drug abuse patient.[facility] HospitalIn the event this information is protected by the Federal Confidentiality of Alcohol and Drug Abuse Patient Records regulations: The Federal rules restrict any use of the information to criminally investigate or prosecute any alcohol or drug abuse patient.[facility] HospitalIn the event this information is protected by the Federal Confidentiality of Alcohol and Drug Abuse Patient Records regulations: The Federal rules restrict any use of the information to criminally investigate or prosecute any alcohol or drug abuse patient.[facility] HospitalIn the event this information is protected by the Federal Confidentiality of Alcohol and Drug Abuse Patient Records regulations: The Federal rules restrict any use of the information to criminally investigate or prosecute any alcohol or drug abuse patient.[facility] HospitalIn the event this information is protected by the Federal Confidentiality of Alcohol and Drug Abuse Patient Records regulations: The Federal rules restrict any use of the information to criminally investigate or prosecute any alcohol or drug abuse patient.[facility] HospitalIn the event this information is protected by the Federal Confidentiality of Alcohol and Drug Abuse Patient Records regulations: The Federal rules restrict any use of the information to criminally investigate or prosecute any alcohol or drug abuse patient.[facility] HospitalIn the event this information is protected by the Federal Confidentiality of Alcohol and Drug Abuse Patient Records regulations: The Federal rules restrict any use of the information to criminally investigate or prosecute any alcohol or drug abuse patient.[facility] HospitalIn the event this information is protected by the Federal Confidentiality of Alcohol and Drug Abuse Patient Records regulations: The Federal rules restrict any use of the information to criminally investigate or prosecute any alcohol or drug abuse patient.[facility] HospitalIn the event this information is protected by the Federal Confidentiality of Alcohol and Drug Abuse Patient Records regulations: The Federal rules restrict any use of the information to criminally investigate or prosecute any alcohol or drug abuse patient.[facility] HospitalIn the event this information is protected by the Federal Confidentiality of Alcohol and Drug Abuse Patient Records regulations: The Federal rules restrict any use of the information to criminally investigate or prosecute any alcohol or drug abuse patient.[facility] HospitalIn the event this information is protected by the Federal Confidentiality of Alcohol and Drug Abuse Patient Records regulations: The Federal rules restrict any use of the information to criminally investigate or prosecute any alcohol or drug abuse patient.[facility] HospitalIn the event this information is protected by the Federal Confidentiality of Alcohol and Drug Abuse Patient Records regulations: The Federal rules restrict any use of the information to criminally investigate or prosecute any alcohol or drug abuse patient.[facility] HospitalIn the event this information is protected by the Federal Confidentiality of Alcohol and Drug Abuse Patient Records regulations: The Federal rules restrict any use of the information to criminally investigate or prosecute any alcohol or drug abuse patient.[facility] the event this information is protected by the Federal Confidentiality of Alcohol and Drug Abuse Patient Records regulations: The Federal rules restrict any use of the information to criminally investigate or prosecute any alcohol or drug abuse patient.[facility] HospitalIn the event this information is protected by the Federal Confidentiality of Alcohol and Drug Abuse Patient Records regulations: The Federal rules restrict any use of the information to criminally investigate or prosecute any alcohol or drug abuse patient.[facility] HospitalIn the event this information is protected by the Federal Confidentiality of Alcohol and Drug Abuse Patient Records regulations: The Federal rules restrict any use of the information to criminally investigate or prosecute any alcohol or drug abuse patient.[facility] HospitalIn the event this information is protected by the Federal Confidentiality of Alcohol and Drug Abuse Patient Records regulations: The Federal rules restrict any use of the information to criminally investigate or prosecute any alcohol or drug abuse patient.[facility] HospitalIn the event this information is protected by the Federal Confidentiality of Alcohol and Drug Abuse Patient Records regulations: The Federal rules restrict any use of the information to criminally investigate or prosecute any alcohol or drug abuse patient.[facility] HospitalIn the event this information is protected by the Federal Confidentiality of Alcohol and Drug Abuse Patient Records regulations: The Federal rules restrict any use of the information to criminally investigate or prosecute any alcohol or drug abuse patient.[facility] HospitalIn the event this information is protected by the Federal Confidentiality of Alcohol and Drug Abuse Patient Records regulations: The Federal rules restrict any use of the information to criminally investigate or prosecute any alcohol or drug abuse patient.[facility] HospitalIn the event this information is protected by the Federal Confidentiality of Alcohol and Drug Abuse Patient Records regulations: The Federal rules restrict any use of the information to criminally investigate or prosecute any alcohol or drug abuse patient.[facility] HospitalIn the event this information is protected by the Federal Confidentiality of Alcohol and Drug Abuse Patient Records regulations: The Federal rules restrict any use of the information to criminally investigate or prosecute any alcohol or drug abuse patient.[facility] HospitalIn the event this information is protected by the Federal Confidentiality of Alcohol and Drug Abuse Patient Records regulations: The Federal rules restrict any use of the information to criminally investigate or prosecute any alcohol or drug abuse patient.[facility] HospitalIn the event this information is protected by the Federal Confidentiality of Alcohol and Drug Abuse Patient Records regulations: The Federal rules restrict any use of the information to criminally investigate or prosecute any alcohol or drug abuse patient.[facility] HospitalIn the event this information is protected by the Federal Confidentiality of Alcohol and Drug Abuse Patient Records regulations: The Federal rules restrict any use of the information to criminally investigate or prosecute any alcohol or drug abuse patient.[facility] HospitalIn the event this information is protected by the Federal Confidentiality of Alcohol and Drug Abuse Patient Records regulations: The Federal rules restrict any use of the information to criminally investigate or prosecute any alcohol or drug abuse patient.[facility] HospitalIn the event this information is protected by the Federal Confidentiality of Alcohol and Drug Abuse Patient Records regulations: The Federal rules restrict any use of the information to criminally investigate or prosecute any alcohol or drug abuse patient.[facility] HospitalIn the event this information is protected by the Federal Confidentiality of Alcohol and Drug Abuse Patient Records regulations: The Federal rules restrict any use of the information to criminally investigate or prosecute any alcohol or drug abuse patient.[facility] HospitalIn the event this information is protected by the Federal Confidentiality of Alcohol and Drug Abuse Patient Records regulations: The Federal rules restrict any use of the information to criminally investigate or prosecute any alcohol or drug abuse patient.[facility] HospitalIn the event this information is protected by the Federal Confidentiality of Alcohol and Drug Abuse Patient Records regulations: The Federal rules restrict any use of the information to criminally investigate or prosecute any alcohol or drug abuse patient.[facility] HospitalIn the event this information is protected by the Federal Confidentiality of Alcohol and Drug Abuse Patient Records regulations: The Federal rules restrict any use of the information to criminally investigate or prosecute any alcohol or drug abuse patient.[facility] HospitalIn the event this information is protected by the Federal Confidentiality of Alcohol and Drug Abuse Patient Records regulations: The Federal rules restrict any use of the information to criminally investigate or prosecute any alcohol or drug abuse patient.[facility] HospitalIn the event this information is protected by the Federal Confidentiality of Alcohol and Drug Abuse Patient Records regulations: The Federal rules restrict any use of the information to criminally investigate or prosecute any alcohol or drug abuse patient.[facility] HospitalIn the event this information is protected by the Federal Confidentiality of Alcohol and Drug Abuse Patient Records regulations: The Federal rules restrict any use of the information to criminally investigate or prosecute any alcohol or drug abuse patient.[facility] HospitalIn the event this information is protected by the Federal Confidentiality of Alcohol and Drug Abuse Patient Records regulations: The Federal rules restrict any use of the information to criminally investigate or prosecute any alcohol or drug abuse patient.[facility] HospitalIn the event this information is protected by the Federal Confidentiality of Alcohol and Drug Abuse Patient Records regulations: The Federal rules restrict any use of the information to criminally investigate or prosecute any alcohol or drug abuse patient.[facility] HospitalIn the event this information is protected by the Federal Confidentiality of Alcohol and Drug Abuse Patient Records regulations: The Federal rules restrict any use of the information to criminally investigate or prosecute any alcohol or drug abuse patient.[facility] HospitalIn the event this information is protected by the Federal Confidentiality of Alcohol and Drug Abuse Patient Records regulations: The Federal rules restrict any use of the information to criminally investigate or prosecute any alcohol or drug abuse patient.[facility] HospitalIn the event this information is protected by the Federal Confidentiality of Alcohol and Drug Abuse Patient Records regulations: The Federal rules restrict any use of the information to criminally investigate or prosecute any alcohol or drug abuse patient.[facility] HospitalIn the event this information is protected by the Federal Confidentiality of Alcohol and Drug Abuse Patient Records regulations: The Federal rules restrict any use of the information to criminally investigate or prosecute any alcohol or drug abuse patient.[facility] HospitalIn the event this information is protected by the Federal Confidentiality of Alcohol and Drug Abuse Patient Records regulations: The Federal rules restrict any use of the information to criminally investigate or prosecute any alcohol or drug abuse patient.[facility] HospitalIn the event this information is protected by the Federal Confidentiality of Alcohol and Drug Abuse Patient Records regulations: The Federal rules restrict any use of the information to criminally investigate or prosecute any alcohol or drug abuse patient.[facility] HospitalIn the event this information is protected by the Federal Confidentiality of Alcohol and Drug Abuse Patient Records regulations: The Federal rules restrict any use of the information to criminally investigate or prosecute any alcohol or drug abuse patient.[facility] HospitalIn the event this information is protected by the Federal Confidentiality of Alcohol and Drug Abuse Patient Records regulations: The Federal rules restrict any use of the information to criminally investigate or prosecute any alcohol or drug abuse patient.[facility] HospitalIn the event this information is protected by the Federal Confidentiality of Alcohol and Drug Abuse Patient Records regulations: The Federal rules restrict any use of the information to criminally investigate or prosecute any alcohol or drug abuse patient.[facility] HospitalIn the event this information is protected by the Federal Confidentiality of Alcohol and Drug Abuse Patient Records regulations: The Federal rules restrict any use of the information to criminally investigate or prosecute any alcohol or drug abuse patient.[facility] HospitalIn the event this information is protected by the Federal Confidentiality of Alcohol and Drug Abuse Patient Records regulations: The Federal rules restrict any use of the information to criminally investigate or prosecute any alcohol or drug abuse patient.[facility] HospitalIn the event this information is protected by the Federal Confidentiality of Alcohol and Drug Abuse Patient Records regulations: The Federal rules restrict any use of the information to criminally investigate or prosecute any alcohol or drug abuse patient.[facility] HospitalIn the event this information is protected by the Federal Confidentiality of Alcohol and Drug Abuse Patient Records regulations: The Federal rules restrict any use of the information to criminally investigate or prosecute any alcohol or drug abuse patient.[facility] HospitalIn the event this information is protected by the Federal Confidentiality of Alcohol and Drug Abuse Patient Records regulations: The Federal rules restrict any use of the information to criminally investigate or prosecute any alcohol or drug abuse patient.[facility]In the event this information is protected by the Federal Confidentiality of Alcohol and Drug Abuse Patient Records regulations: The Federal rules restrict any use of the information to criminally investigate or prosecute any alcohol or drug abuse patient.[facility] HospitalIn the event this information is protected by the Federal Confidentiality of Alcohol and Drug Abuse Patient Records regulations: The Federal rules restrict any use of the information to criminally investigate or prosecute any alcohol or drug abuse patient.[facility] HospitalIn the event this information is protected by the Federal Confidentiality of Alcohol and Drug Abuse Patient Records regulations: The Federal rules restrict any use of the information to criminally investigate or prosecute any alcohol or drug abuse patient.[facility] HospitalIn the event this information is protected by the Federal Confidentiality of Alcohol and Drug Abuse Patient Records regulations: The Federal rules restrict any use of the information to criminally investigate or prosecute any alcohol or drug abuse patient.[facility]In the event this information is protected by the Federal Confidentiality of Alcohol and Drug Abuse Patient Records regulations: The Federal rules restrict any use of the information to criminally investigate or prosecute any alcohol or drug abuse patient.[facility]In the event this information is protected by the Federal Confidentiality of Alcohol and Drug Abuse Patient Records regulations: The Federal rules restrict any use of the information to criminally investigate or prosecute any alcohol or drug abuse patient.[facility]In the event this information is protected by the Federal Confidentiality of Alcohol and Drug Abuse Patient Records regulations: The Federal rules restrict any use of the information to criminally investigate or prosecute any alcohol or drug abuse patient.[facility] HospitalIn the event this information is protected by the Federal Confidentiality of Alcohol and Drug Abuse Patient Records regulations: The Federal rules restrict any use of the information to criminally investigate or prosecute any alcohol or drug abuse patient.[facility]In the event this information is protected by the Federal Confidentiality of Alcohol and Drug Abuse Patient Records regulations: The Federal rules restrict any use of the information to criminally investigate or prosecute any alcohol or drug abuse patient.[facility]In the event this information is protected by the Federal Confidentiality of Alcohol and Drug Abuse Patient Records regulations: The Federal rules restrict any use of the information to criminally investigate or prosecute any alcohol or drug abuse patient.[facility] HospitalIn the event this information is protected by the Federal Confidentiality of Alcohol and Drug Abuse Patient Records regulations: The Federal rules restrict any use of the information to criminally investigate or prosecute any alcohol or drug abuse patient.[facility]In the event this information is protected by the Federal Confidentiality of Alcohol and Drug Abuse Patient Records regulations: The Federal rules restrict any use of the information to criminally investigate or prosecute any alcohol or drug abuse patient.[facility] HospitalIn the event this information is protected by the Federal Confidentiality of Alcohol and Drug Abuse Patient Records regulations: The Federal rules restrict any use of the information to criminally investigate or prosecute any alcohol or drug abuse patient.[facility] the event this information is protected by the Federal Confidentiality of Alcohol and Drug Abuse Patient Records regulations: The Federal rules restrict any use of the information to criminally investigate or prosecute any alcohol or drug abuse patient.[facility]In the event this information is protected by the Federal Confidentiality of Alcohol and Drug Abuse Patient Records regulations: The Federal rules restrict any use of the information to criminally investigate or prosecute any alcohol or drug abuse patient.[facility]In the event this information is protected by the Federal Confidentiality of Alcohol and Drug Abuse Patient Records regulations: The Federal rules restrict any use of the information to criminally investigate or prosecute any alcohol or drug abuse patient.[facility]In the event this information is protected by the Federal Confidentiality of Alcohol and Drug Abuse Patient Records regulations: The Federal rules restrict any use of the information to criminally investigate or prosecute any alcohol or drug abuse patient.[facility]In the event this information is protected by the Federal Confidentiality of Alcohol and Drug Abuse Patient Records regulations: The Federal rules restrict any use of the information to criminally investigate or prosecute any alcohol or drug abuse patient.[facility] HospitalIn the event this information is protected by the Federal Confidentiality of Alcohol and Drug Abuse Patient Records regulations: The Federal rules restrict any use of the information to criminally investigate or prosecute any alcohol or drug abuse patient.[facility] Reason for Visit (unrecogniz ed section and content) Reason Onset Date Comments Refill Request 10/29/2021 Reason Comments Schedule Surgery Reason Comments Appointment Reason Comments Education Of Patient/family Reason Comments New Patient Reason Comments FMLA Paperwork Reason Comments patient questions Reason Comments Orders Reason Onset Date Comments Research 01/06/2022 Reason Comments Hospital Bed Order Reason Comments Physical Therapy Plan of Care Hospital bed order request Reason Comments Post Op Sx: 01/07/2022 Reason Comments Hospital F/U Reason Comments Patient Update FYI-No Action Needed Reason Comments patient lettter request Reason Comments Consult Reason Comments Post Op Reason Comments Refill Request Reason Comments Post Op Reason Comments Home Health Reason Onset Date Comments Patient Update 03/14/2022 Reason Comments Transition Of Care Reason Comments Results Reason Comments Established Patient Reason Comments Radiology CT Specialty Diagnoses / Procedures Referred By Contac t Referred To Contact CT IMAGING Diagnoses Spinal stenosis of lumbar region with neurogenic claudication Procedures CT LUMBAR SPINE WO IVCON CT LUMBAR SPINE W/[place] [address] [address] [place] [address] Ct Imaging Referral ID Status Reason Start Date Expiration Date V isits Requested Visits Authorized [id number] Closed Auto-Generate d Referral 04/21/2022 06/05/2022 1 1 Reason Comments Established Patient Reason Onset Date Comments Transition Of Care 05/20/2022 Initial Outre ach D/C 05/19/22 Holiness completed Reason Comments Medication Problem Reason Comments Patient Update Reason Comments Follow Up Reason Comments Established Patient Post op Reason Comments growth on finger Reason Comments Established Patient Pain Reason Comments patient question Reason Comments 4 month follow-up Reason Comments Home Health Medication Order Reason Comments Counseling Reason Comments New Cyst Pain Cyst Swelling Cyst Specialty Diagnoses / Procedures Referred By Contac t Referred To Contact Orthopedics Diagnoses Ganglion cyst of finger Procedures CONSULT TO ORTHOPAEDICS OFFICE/OUTPATIENT NEW HIGH MDM 60-74 MINUTES Older, 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, 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 [address] [place] [address] Referral ID Status Reason Start Date Expiration Date V isits Requested Visits Authorized [id number] Closed PCP Requested Referral 06/08/2022 06/08/2023 1 1 Reason Comments Established Patient Reason Comments Sinus Problem Sinus pain and press ure x 3 weeks Reason Onset Date Comments Refill Request 09/19/2022 Reason Comments Information Reason Onset Date Comments Refill Request 11/04/2022 Reason Comments Letter Reason Comments F/U [address] appeal Reason Comments Med Change Request Reason Comments Results - Ct Reason Comments Follow Up Review CT Reason Comments Cough Congestion, drainage x 16 days Specialty Diagnoses / Procedures Referred By Contac t Referred To Contact MR IMAGING Diagnoses Spinal stenosis of lumbar region with neurogenic claudication Procedures MRI LUMBAR SPINE WO IVCON MRI SPINAL CANAL LUMBAR W/[place] [address] [place] [address] [place] [address] Referral ID Status Reason Start Date Expiration Date V isits Requested Visits Authorized [id number] Closed Auto-Generate d Referral 04/13/2023 06/12/2023 1 1 Specialty Diagnoses / Procedures Referred By Contac t Referred To Contact CT IMAGING Diagnoses Spinal stenosis of lumbar region with neurogenic claudication Procedures CT LUMBAR SPINE WO IVCON CT LUMBAR SPINE W/[place] [address] [place] [address] [place] [address] Referral ID Status Reason Start Date Expiration Date V isits Requested Visits Authorized [id number] Closed Auto-Generate d Referral 07/18/2022 09/01/2022 1 1 Reason Comments Follow Up For 2 months Reason Comments Home Care MD to Follow Reason Comments Home Care Confirmation call Reason Comments Home Care OP PT orders Reason Comments Home Care Specialty Diagnoses / Procedures Referred By Contac t Referred To Contact [facility] [address] [place] [id number] Referral ID Status Reason Start Date Expiration Date Visits Re quested Visits Authorized [id number] 1 1 Reason Comments PT Plan of Care Reason Comments Sinus Problem sinus pressure, drai nage and ear pain x 2 weeks Reason Onset Date Comments Refill Request 11/13/2023 Reason Comments Ear Pain Bilt ears, sinus con gestion, pressure, x 3 weeks Reason Comments Patient Question Reason Comments PT Recertification Reason Comments Xray Order Reason Comments Established Patient Follow Up Reason Comments Forms 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 Comments 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 Patient Update Reason Onset Date Comments Refill Request 03/04/2024 Reason Onset Date Comments Refill Request 03/05/2024 Appointment 03/05/2024 Reason Comments 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 Reason Comments exposure to covid X 2 days Reason Comments Yearly Exam Reason Comments Hirsutism Specialty Diagnoses / Procedures Referred By Contac t Referred To Contact Endocrinology Diagnoses Hirsutism Procedures CONSULT TO ENDOCRINOLOGY OFFICE/OUTPATIENT NEW HIGH MDM 60 MINUTES Nusrat Alva, 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 [address] [place] [address] Referral ID Status Reason Start Date Expiration Date V isits Requested Visits Authorized [id number] Closed PCP Requested Referral 04/04/2024 04/04/2025 1 1 Reason Comments Sinus Problem Sinus congestion, pa in and pressure, VERNON, ear pain x2 weeks Reason Comments Sinusitis On going x 3 weeks; finished Augmentin [place] Reason Onset Date Comments Refill Request 08/28/2024 Reason Comments Ear Problem LEFT ear abrasion; p ossible ingrown hair on L buttock Reason Comments Follow Up Reason Comments Cough Cough, sinus and con gestion x 1 month Specialty Diagnoses / Procedures Referred By Contac t Referred To Contact CT IMAGING Diagnoses Spinal stenosis of lumbar region with neurogenic claudication Procedures CT LUMBAR SPINE [facility] CT LUMBAR SPINE W/O CONTRAST MATERIAL Eyal, [place] [address] [address] [place] [address] Phone: tel: fax: [place] [address] Referral ID Status Reason Start Date Expiration Date V isits Requested Visits Authorized [id number] Closed Auto-Generat ed Referral Clearance Not Met - Admin/Chairm an/Director Advise to Postpone/Res chedule or Not Proceed 09/13/2024 11/12/2024 1 [address] Scan Results Follow Up Reason Comments Patient Question Upcoming Injection P rocedure Reason Comments Lab Orders Reason Comments Hand Pain L thumb into wrist p ain x2 months, denies injury or fall Reason Comments Follow Up Up after injection Reason Comments Left wrist DeQuervain's Referred by Raymundo akhtar AbflorianX-ray 02/21/25 Specialty Diagnoses / Procedures Referred By Contac t Referred To Contact Orthopedics Diagnoses De Quervain's tenosynovitis, left Procedures CONSULT PANEL TO ORTHOPAEDICS OFFICE/OUTPATIENT [facility] 60 MINUTES Africa Caba, KANDI [address] [place] [address] Phone: tel: fax: Referral ID Status Reason Start Date Expiration Date V isits Requested Visits Authorized [id number] Closed PCP Requested Referral 02/21/2025 02/21/2026 1 1 Care Teams (unrecognized sec tion and content) Hand Knitter Relationship Specialty Start Date End Date Elvin Diaz MD [address] [place] [address] PCP - General Internal Medicine 06/24/21 Hand Knitter Relationship Specialty Start Date End Date Elvin Diaz MD [address] [place] [address] PCP - General Internal Medicine 06/24/21 Hand Knitter Relationship Specialty Start Date End Date Elvin Diaz MD [address] [place] [address] PCP - General Internal Medicine 06/24/21 Hand Knitter Relationship Specialty Start Date End Date Elvin Diaz MD [address] [place] [address] PCP - General Internal Medicine 06/24/21 Hand Knitter Relationship Specialty Start Date End Date Elvin Diaz MD [address] [place] [address] PCP - General Internal Medicine 06/24/21 Hand Knitter Relationship Specialty Start Date End Date Elvin Diaz MD [address] [place] [address] PCP - General Internal Medicine 06/24/21 Hand Knitter Relationship Specialty Start Date End Date Elvin Diaz MD [address] [place] [address] PCP - General Internal Medicine 06/24/21 Hand Knitter Relationship Specialty Start Date End Date Elvin Diaz MD [address] [place] [address] PCP - General Internal Medicine 06/24/21 Hand Knitter Relationship Specialty Start Date End Date Elvin Diaz MD [address] [place] [address] PCP - General Internal Medicine 06/24/21 Hand Knitter Relationship Specialty Start Date End Date Elvin Diaz MD [address] [place] [address] PCP - General Internal Medicine 06/24/21 Hand Knitter Relationship Specialty Start Date End Date Elvin Diaz MD [address] [place] [address] PCP - General Internal Medicine 06/24/21 Hand Knitter Relationship Specialty Start Date End Date Elvin Diaz MD [address] [place] [address] PCP - General Internal Medicine 06/24/21 Hand Knitter Relationship Specialty Start Date End Date Elvin Diaz MD [address] [place] [address], [place] [address] PCP - General Internal Medicine 06/24/21 Hand Knitter Relationship Specialty Start Date End Date Elvin Diaz MD [address] [place] [address] PCP - General Internal Medicine 06/24/21 Hand Knitter Relationship Specialty Start Date End Date Elvin Diaz MD [facility] [place] [address] PCP - General Internal Medicine 06/24/21 Hand Knitter Relationship Specialty Start Date End Date Elvin Diaz MD [address] [facility] [place] [address] PCP - General Internal Medicine 06/24/21 Hand Knitter Relationship Specialty Start Date End Date Elvin Diaz MD [address] [place] [address], [place] [address] PCP - General Internal Medicine 06/24/21 Hand Knitter Relationship Specialty Start Date End Date Elvin Diaz MD [address] [place] [address] PCP - General Internal Medicine 06/24/21 Hand Knitter Relationship Specialty Start Date End Date Elvin Diaz MD [address] [place] [address] PCP - General Internal Medicine 06/24/21 Hand Knitter Relationship Specialty Start Date End Date Elvin Diaz MD [address] [place] [address] PCP - General Internal Medicine 06/24/21 Hand Knitter Relationship Specialty Start Date End Date Elvin Diaz MD [facility] [place] [address] PCP - General Internal Medicine 06/24/21 Hand Knitter Relationship Specialty Start Date End Date Elvin Diaz MD [facility] [place] [address] PCP - General Internal Medicine 06/24/21 Hand Knitter Relationship Specialty Start Date End Date Elvin Diaz MD [facility] [place] [address] PCP - General Internal Medicine 06/24/21 Hand Knitter Relationship Specialty Start Date End Date Elvin Diaz MD [facility] [place] [address] PCP - General Internal Medicine 06/24/21 Hand Knitter Relationship Specialty Start Date End Date Elvin Diaz MD [facility] [place] [address] PCP - General Internal Medicine 06/24/21 Hand Knitter Relationship Specialty Start Date End Date Elvin Diaz MD [facility] [place] [address] PCP - General Internal Medicine 06/24/21 Hand Knitter Relationship Specialty Start Date End Date Elvin Diaz MD [address] [place] [address] PCP - General Internal Medicine 06/24/21 Hand Knitter Relationship Specialty Start Date End Date Elvin Diaz MD [address] [place] [address] PCP - General Internal Medicine 06/24/21 Hand Knitter Relationship Specialty Start Date End Date Elvin Diaz MD [address] [place] [address] PCP - General Internal Medicine 06/24/21 Hand Knitter Relationship Specialty Start Date End Date Elvin Diaz MD [address] [place] [address] PCP - General Internal Medicine 06/24/21 Hand Knitter Relationship Specialty Start Date End Date Elvin Diaz MD [address] [place] [address] PCP - General Internal Medicine 06/24/21 Hand Knitter Relationship Specialty Start Date End Date Elvin Diaz MD [address] [place] [address] PCP - General Internal Medicine 06/24/21 Hand Knitter Relationship Specialty Start Date End Date Elvin Diaz MD [address] [place] [address] PCP - General Internal Medicine 06/24/21 Hand Knitter Relationship Specialty Start Date End Date Elvin Diaz MD [address] [place] [address] PCP - General Internal Medicine 06/24/21 Hand Knitter Relationship Specialty Start Date End Date Elvin Diaz MD [address] [place] [address] PCP - General Internal Medicine 06/24/21 Hand Knitter Relationship Specialty Start Date End Date Elvin Diaz MD [address] [place] [address] PCP - General Internal Medicine 06/24/21 Hand Knitter Relationship Specialty Start Date End Date Elvin Diaz MD [address] [place] [address] PCP - General Internal Medicine 06/24/21 Hand Knitter Relationship Specialty Start Date End Date Elvin Diaz MD [address] [place] [address] PCP - General Internal Medicine 06/24/21 Hand Knitter Relationship Specialty Start Date End Date Elvin Diaz MD [address] [place] [address] PCP - General Internal Medicine 06/24/21 Team Status: Active Member Role Status Dates Dr. Yesi Monterroso MD Family Provider Active Dr. Elvin Diaz MD Primary Care Provider Active Team Status: Inactive Member Role Status Dates EYAL ORTA Attending Provider, Referring Provider Ac tive Dr. Elvin Diaz MD Primary Care Provider Active Hand Knitter Relationship Specialty Start Date End Date Elvin Diaz MD [address] [place] [address] PCP - General Internal Medicine 06/24/21 Hand Knitter Relationship Specialty Start Date End Date Elvin Diaz MD [address] [place] [address] PCP - General Internal Medicine 06/24/21 Hand Knitter Relationship Specialty Start Date End Date Elvin Diaz MD [address] [place] [address] PCP - General Internal Medicine 06/24/21 Hand Knitter Relationship Specialty Start Date End Date Elvin Diaz MD [address] [place] [address] PCP - General Internal Medicine 06/24/21 Hand Knitter Relationship Specialty Start Date End Date Elvin Diaz MD [address] [place] [address] PCP - General Internal Medicine 06/24/21 Hand Knitter Relationship Specialty Start Date End Date Elvin Diaz MD [address] [place] [address] PCP - General Internal Medicine 06/24/21 Hand Knitter Relationship Specialty Start Date End Date Elvin Diaz MD [address] [place] [address] PCP - General Internal Medicine 06/24/21 Team Status: Inactive Member Role Status Dates Dr. Elvin Diaz MD Primary Care Provider Active EYAL ORTA Attending Provider, Referring Provider Ac salome Hand Knitter Relationship Specialty Start Date End Date Elvin Diaz MD [address] [place] [address] PCP - General Internal Medicine 06/24/21 Hand Knitter Relationship Specialty Start Date End Date Elvin Diaz MD [address] [place] [address] PCP - General Internal Medicine 06/24/21 Hand Knitter Relationship Specialty Start Date End Date Elvin Diaz MD [address] [place] [address] PCP - General Internal Medicine 06/24/21 Hand Knitter Relationship Specialty Start Date End Date Elvin Diaz MD [address] [place] [address] PCP - General Internal Medicine 06/24/21 Hand Knitter Relationship Specialty Start Date End Date Elvin Diaz MD [address] [place] [address] PCP - General Internal Medicine 06/24/21 Hand Knitter Relationship Specialty Start Date End Date Elvin Diaz MD [address] [place] [address] PCP - General Internal Medicine 06/24/21 Hand Knitter Relationship Specialty Start Date End Date Elvin Diaz MD [address] [place] [address] PCP - General Internal Medicine 06/24/21 Hand Knitter Relationship Specialty Start Date End Date Elvin Diaz MD [address] [place] [address] PCP - General Internal Medicine 06/24/21 Hand Knitter Relationship Specialty Start Date End Date Elvin Diaz MD [address] [place] [address] PCP - General Internal Medicine 06/24/21 Ruthy Stout APRN.WOODEN BOAT BUILDER [address] [place] [address] Referring Internal Medicine 08/25/23 [place] [address] [address] [place] [address] Home Care Provider Neurosurgery 08/25/23 Hand Knitter Relationship Specialty Start Date End Date Elvin Diaz MD [address] [place], [place] 178241 PCP - General Internal Medicine 06/24/21 Ruthy Stout APRN.WOODEN BOAT BUILDER [address] [place] [address] Referring Internal Medicine 08/25/23 [place] [address] [address] [place] [address] Home Care Provider Neurosurgery 08/25/23 Hand Knitter Relationship Specialty Start Date End Date Elvin Diaz MD [address] [place], [place] [address] PCP - General Internal Medicine 06/24/21 Ruthy Stout APRN.WOODEN BOAT BUILDER [address] [place] [address] Referring Internal Medicine 08/25/23 [place] [address] [address] [place] [address] Home Care Provider Neurosurgery 08/28/23 Olvin Garrett, PT [address] [place], [place] 1750031 Car Mover Post Acute Care 08/28/23 Hand Knitter Relationship Specialty Start Date End Date Elvin Diaz MD [address] [place], [place] 823621 PCP - General Internal Medicine 06/24/21 Ruthy Stout APRN.WOODEN BOAT BUILDER [address] [place] [address] Referring Internal Medicine 08/25/23 [place] [address] [facility] [place] [address] Home Care Provider Neurosurgery 08/28/23 Olvin Garrett, PT [address] [place] [address] Car Mover Post Acute Care 08/28/23 Hand Knitter Relationship Specialty Start Date End Date Elvin Diaz MD [address] [place], [place] 145021 PCP - General Internal Medicine 06/24/21 Ruthy Stout APRN.WOODEN BOAT BUILDER [address] [place] [address] Referring Internal Medicine 08/25/23 [place] [address] [address] [place] [address] Home Care Provider Neurosurgery 08/28/23 Olvin Garrett, PT [address] [place] [address] Car Mover Post Acute Care 08/28/23 Hand Knitter Relationship Specialty Start Date End Date Elvin Diaz MD [address] [place], [place] 422351 PCP - General Internal Medicine 06/24/21 Ruthy Stout APRN.WOODEN BOAT BUILDER [address] [place] [address] Referring Internal Medicine 08/25/23 [place] [address] [address] [place] [address] Home Care Provider Neurosurgery 08/28/23 Olvin Garrett, PT [address] [place] [address] Car Mover Post Acute Care 08/28/23 Hand Knitter Relationship Specialty Start Date End Date Elvin Diaz MD [address] [place], [place] [address] PCP - General Internal Medicine 06/24/21 Ruthy tSout APRN.WOODEN BOAT BUILDER [address] [place] [address] Referring Internal Medicine 08/25/23 [place] [address] [address] [place] [address] Home Care Provider Neurosurgery 08/28/23 Olvin Garrett, PT [address] [place] [address] Car Mover Post Acute Care 08/28/23 Hand Knitter Relationship Specialty Start Date End Date Elvin Diaz MD [address] [place], [place] 084801 PCP - General Internal Medicine 06/24/21 Ruthy Stout APRN.WOODEN BOAT BUILDER [address] [place] [address] Referring Internal Medicine 08/25/23 [place] [address] [address] [place] [address] Home Care Provider Neurosurgery 08/28/23 Olvin Garrett, PT [address] [place] [address] Car Mover Post Acute Care 08/28/23 Hand Knitter Relationship Specialty Start Date End Date Elvin Diaz MD [address] [place], [place] 129121 PCP - General Internal Medicine 06/24/21 Ruthy Stout APRN.WOODEN BOAT BUILDER [address] [place] [address] Referring Internal Medicine 08/25/23 [place] [address] [address] [place] [address] Home Care Provider Neurosurgery 08/28/23 Olvin Garrett, PT [address] [place] [address] Car Mover Post Acute Care 08/28/23 Hand Knitter Relationship Specialty Start Date End Date Elvin Diaz MD [address] [place], [place] 778001 PCP - General Internal Medicine 06/24/21 Ruthy Stout APRN.WOODEN BOAT BUILDER [address] [place] [address] Referring Internal Medicine 08/25/23 [place] [address] [place] [address] Home Care Provider Neurosurgery 08/28/23 Olvin Garrett, PT [address] [place] [address] Car Mover Post Acute Care 08/28/23 Hand Knitter Relationship Specialty Start Date End Date Elvin Diaz MD [address] [place], [place] 175101 PCP - General Internal Medicine 06/24/21 Ruthy Stout APRN.WOODEN BOAT BUILDER [address] [place] [address] Referring Internal Medicine 08/25/23 [place] [address] [address] [place] [address] Home Care Provider Neurosurgery 08/28/23 Olvin Garrett, PT [address] [place] [address] Car Mover Post Acute Care 08/28/23 Hand Knitter Relationship Specialty Start Date End Date Elvin Diaz MD [address] [place], [place] 077821 PCP - General Internal Medicine 06/24/21 Ruthy Stout APRN.WOODEN BOAT BUILDER [address] [place] [address] Referring Internal Medicine 08/25/23 [place] [address] [place] [address] Home Care Provider Neurosurgery 08/28/23 Olvin Garrett, PT [address] [place] [address] Car Mover Post Acute Care 08/28/23 Hand Knitter Relationship Specialty Start Date End Date Elvin Diaz MD [address] [place] [address] PCP - General Internal Medicine 06/24/21 Ruthy Stout APRN.WOODEN BOAT BUILDER [address] [place] [address] Referring Internal Medicine 08/25/23 [place] [address] [place] [address] Home Care Provider Neurosurgery 08/28/23 Olvin Garrett, PT [address] [place] [address] Car Mover Post Acute Care 08/28/23 Hand Knitter Relationship Specialty Start Date End Date Elvin Diaz MD [address] [place] [address] PCP - General Internal Medicine 06/24/21 Ruthy Stout APRN.WOODEN BOAT BUILDER [address] [place] [address] Referring Internal Medicine 08/25/23 [place] [address] [place] [address] Home Care Provider Neurosurgery 08/28/23 Olvin Garrett, PT [address] [place] [address] Car Mover Post Acute Care 08/28/23 Hand Knitter Relationship Specialty Start Date End Date Elvin Diaz MD [address] [place], [place] 225731 PCP - General Internal Medicine 06/24/21 Ruthy Stout 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 [address] [place] [address] Referring Internal Medicine 08/25/23 [place] [address] [address] [place] [address] Home Care Provider Neurosurgery 08/28/23 Olvin Garrett, PT [address] [place] [address] Car Mover Post Acute Care 08/28/23 Hand Knitter Relationship Specialty Start Date End Date Elvin Diaz MD [address] [place], [place] [address]161 PCP - General Internal Medicine 06/24/21 Ruthy Stout, 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 [address] [place] [address] Referring Internal Medicine 08/25/23 [place] [address] [address] [place] [address] Home Care Provider Neurosurgery 08/28/23 Olvin Garrett, PT [address] [place] [address] Car Mover Post Acute Care 08/28/23 Hand Knitter Relationship Specialty Start Date End Date Elvin Diaz MD [address] [place], [place] 274091 PCP - General Internal Medicine 06/24/21 Ruthy Stout APRN.WOODEN BOAT BUILDER [address] [facility] [place] [address] Referring Internal Medicine 08/25/23 [place] [address] [address] [place] [address] Home Care Provider Neurosurgery 08/28/23 Olvin Garrett, PT [address] [place] [address] Car Mover Post Acute Care 08/28/23 Hand Knitter Relationship Specialty Start Date End Date Elvin Diaz MD [address] [place] [address] PCP - General Internal Medicine 06/24/21 Hand Knitter Relationship Specialty Start Date End Date Elvin Diaz MD [address] [place], [place] 8[address]251 PCP - General Internal Medicine 06/24/21 Hand Knitter Relationship Specialty Start Date End Date Elvin Diaz MD [address] [place] [address] PCP - General Internal Medicine 06/24/21 Ruthy Stout APRN.WOODEN BOAT BUILDER [address] [place] [address] Referring Internal Medicine 08/25/23 [place] [address] [address] [place] [address] Home Care Provider Neurosurgery 08/28/23 Olvin Garrett, PT [address] [place] [address] Car Mover Post Acute Care 08/28/23 Hand Knitter Relationship Specialty Start Date End Date Elvin Diaz MD [address] [place], [place] [address] PCP - General Internal Medicine 06/24/21 Ruthy Stout APRN.WOODEN BOAT BUILDER [address] [place] [address] Referring Internal Medicine 08/25/23 [place] [address] [address] [place] [address] Home Care Provider Neurosurgery 08/28/23 Olvin Garrett, PT [address] [place] [address] Car Mover Post Acute Care 08/28/23 Hand Knitter Relationship Specialty Start Date End Date Elvin Diaz MD [address] [place], [place] 203931 PCP - General Internal Medicine 06/24/21 Ruthy Stout APRN.WOODEN BOAT BUILDER [address] [place] [id number] Referring Internal Medicine 08/25/23 [place] [address] [facility] [place] [address] Home Care Provider Neurosurgery 08/28/23 Olvin Garrett, PT [address] [place] [address] Car Mover Post Acute Care 08/28/23 Nusrat Alva, 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 [address] [place] [address] Supervisor Speech Internal Medicine 07/15/24 Hand Knitter Relationship Specialty Start Date End Date Elvin Diaz MD [address] [place] [address] PCP - General Internal Medicine 06/24/21 Ruthy Stout, 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 [address] [place] [address] Referring Internal Medicine 08/25/23 [place] [address] [address]EB[address] [place] [address] Home Care Provider Neurosurgery 08/28/23 Olvin Garrett, PT [address] [place] [address] Car Mover Post Acute Care 08/28/23 Nusrat Alva, 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 [address] [place] [address] Supervisor Speech Internal Medicine 07/15/24 Hand Knitter Relationship Specialty Start Date End Date Elvin Diaz MD [address] [place], [place] [address] PCP - General Internal Medicine 06/24/21 Ruthy Stout APRN.WO[employer] BOAT BUILDER [address] [place] [address] Referring Internal Medicine 08/25/23 [place] [address] [place] [address] Home Care Provider Neurosurgery 08/28/23 Olvin Garrett, PT [address] [place] [address] Car Mover Post Acute Care 08/28/23 Nusrat Alva, 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 [address] [place] [address] Supervisor Speech Internal Medicine 07/15/24 Hand Knitter Relationship Specialty Start Date End Date Elvin Diaz MD [address] [place] [address] PCP - General Internal Medicine 06/24/21 Ruthy Stout APRN.WO[employer]EN BOAT BUILDER [address] [place] [address] Referring Internal Medicine 08/25/23 [place] [address] [place] [address] Home Care Provider Neurosurgery 08/28/23 Olvin Garrett, PT [address] [place] [address] Car Mover Post Acute Care 08/28/23 Nusrat Alva, 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 [address] [place], [place] [address] Supervisor Speech Internal Medicine 07/15/24 Hand Knitter Relationship Specialty Start Date End Date Elvin Diaz MD [address] [place], [place] [address] PCP - General Internal Medicine 06/24/21 Ruthy Stout APRN.WOODEN BOAT BUILDER [address] [place] [address] Referring Internal Medicine 08/25/23 [place] [address] [facility] [facility] [place] [address] Home Care Provider Neurosurgery 08/28/23 Olvin Garrett, PT [address] [place] [address] Car Mover Post Acute Care 08/28/23 Nusrat Alva, 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 [address] [place], [place] [address] Supervisor Speech Internal Medicine 07/15/24 Hand Knitter Relationship Specialty Start Date End Date Elvin Diaz MD [address] [place], [place] [address] PCP - General Internal Medicine 06/24/21 Ruthy Stout APRN.WOODEN BOAT BUILDER [address] [place] [address] Referring Internal Medicine 08/25/23 [place] [address] [address] [place] [address] Home Care Provider Neurosurgery 08/28/23 Olvin Garrett, PT [address] [place] [address] Car Mover Post Acute Care 08/28/23 Nusrat Alva, 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 [address] [place], [place] [address] Supervisor Speech Internal Medicine 07/15/24 Hand Knitter Relationship Specialty Start Date End Date Elvin Diaz MD [address] [place] [address] PCP - General Internal Medicine 06/24/21 Ruthy Stout 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 [address] [place] [address] Referring Internal Medicine 08/25/23 [place] [address] [address] [place] [address] Home Care Provider Neurosurgery 08/28/23 Olvin Garrett, PT [address] [place] [address] Car Mover Post Acute Care 08/28/23 Nusrat Alva, 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 [address] [place] [address] Supervisor Speech Internal Medicine 07/15/24 Hand Knitter Relationship Specialty Start Date End Date Elvin Diaz MD [address] [place] [address] PCP - General Internal Medicine 06/24/21 Ruthy Stout APRN.WOODEN BOAT BUILDER [address] [place] [address] Referring Internal Medicine 08/25/23 [place] [address] [facility] [place] [address] Home Care Provider Neurosurgery 08/28/23 Olvin Garrett, PT [address] [place] [address] Car Mover Post Acute Care 08/28/23 Nusrat Alva, 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 [address] [place] [address] Supervisor Speech Internal Medicine 07/15/24 Hand Knitter Relationship Specialty Start Date End Date Elvin Diaz MD [address] [place] [address] PCP - General Internal Medicine 06/24/21 Ruthy Stout APRN.WOODEN BOAT BUILDER [address] [place] [address] Referring Internal Medicine 08/25/23 [place] [address] [facility] [place] [address] Home Care Provider Neurosurgery 08/28/23 Olvin Garrett, PT [address] [place] [address] Car Mover Post Acute Care 08/28/23 Nusrat Alva, 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 [address] [place], [place] [address] Supervisor Speech Internal Medicine 07/15/24 Hand Knitter Relationship Specialty Start Date End Date Elvin Diaz MD [address] [place], [place] [address] PCP - General Internal Medicine 06/24/21 Ruthy Stout APRN.WOODEN BOAT BUILDER [address] [place], [place] [id number] Referring Internal Medicine 08/25/23 [place] [address] [address] [place] [address] Home Care Provider Neurosurgery 08/28/23 Olvin Garrett, PT [address] [place], [place] [address]2331 Car Mover Post Acute Care 08/28/23 Nusrat Alva, 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 [address] [place] [address] Supervisor Speech Internal Medicine 07/15/24 Hand Knitter Relationship Specialty Start Date End Date Elvin Diaz MD [address] [place], [place] [address] PCP - General Internal Medicine 06/24/21 Ruthy Stout APRN.WOODEN BOAT BUILDER [address] [place] [address] Referring Internal Medicine 08/25/23 [place] [address] [facility] [address] [place] [address] Home Care Provider Neurosurgery 08/28/23 Olvin Garrett, PT [address] [place] [address] Car Mover Post Acute Care 08/28/23 Nusrat Alva, 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 [address] [place], [place] [address] Supervisor Speech Internal Medicine 07/15/24 Hand Knitter Relationship Specialty Start Date End Date Elvin Diaz MD [address] [place], [place] [address] PCP - General Internal Medicine 06/24/21 Ruthy Stout, 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 [address] [place] [address] Referring Internal Medicine 08/25/23 [place] [address] [address]FVE[address] [place] [address] Home Care Provider Neurosurgery 08/28/23 Olvin Garrett, PT [address] [place] [address] Car Mover Post Acute Care 08/28/23 Nusrat Alva, 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 [address] [place] [address] Supervisor Speech Internal Medicine 07/15/24 Hand Knitter Relationship Specialty Start Date End Date Elvin Diaz MD [address] [place] [address] PCP - General Internal Medicine 06/24/21 Ruthy Stout APRN.WOODEN BOAT BUILDER [address] [place] [address] Referring Internal Medicine 08/25/23 [place] [address] [address]VE[address] [place] [address] Home Care Provider Neurosurgery 08/28/23 Olvin Garrett, PT [address] [place] [address] Car Mover Post Acute Care 08/28/23 Nusrat Alva, 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 [address] [place] [address] Supervisor Speech Internal Medicine 07/15/24 Hand Knitter Relationship Specialty Start Date End Date Elvin Diaz MD [address] [place] [address] PCP - General Internal Medicine 06/24/21 Ruthy Stout APRN.WOODEN BOAT BUILDER [address] [place] [address] Referring Internal Medicine 08/25/23 [place] [address] [address] [place] [address] Home Care Provider Neurosurgery 08/28/23 Olvin Garrett, PT [address] [place] [address] Car Mover Post Acute Care 08/28/23 Nusrat Alva, ANGELA.WOODEN BOAT BUILDER [address] [place] [address] Supervisor Speech Internal Medicine 07/15/24 Goals (unrecognized section and content) Goals may be documented in a n alternate sectionGoals may be documented in an alternate section INFORMATION SOURCE (unrecogn ized section and content) DATE CREATED AUTHOR 07/18/2023 [facility] DATE CREATED AUTHOR AUTHOR'S ORGANIZ ATION 08/28/2023 [facility] DATE CREATED AUTHOR AUTHOR'S ORGANIZ ATION 10/05/2024 [facility] DATE CREATED AUTHOR AUTHOR'S ORGANIZ ATION 10/20/2024 [facility] DATE CREATED AUTHOR AUTHOR'S ORGANIZ ATION 12/25/2024 [facility] DATE CREATED AUTHOR AUTHOR'S ORGANIZ ATION 02/26/[address] [facility] FOR RECORDS PERTAINING TO PATIENTS WHO ARE OR HAVE BEEN ENROLLED IN A CHEMICAL DEPENDENCY/SUBSTANCEABUSE PROGRAM, SOME INFORMATION MAY BE OMITTED. This clinical summary was aggregated from multiple sources. Caution should be exercised in using it in the provision of clinical care. This summary normalizes information from multiple sources, and as a consequence, information in this document may materially change the coding, format and clinical context of patient data. In addition, data may be omitted in some cases. CLINICAL DECISIONS SHOULD BE BASED ON THE PRIMARY CLINICAL RECORDS. [facility]. provides no warranty or guarantee of the accuracy or completeness of information in this document.
[2025-02-28] MEDS: 0.9% Normal Saline (1000mL) 1,000 ML 100 ML IV (00:12)
[2025-02-28] MEDS: 0.9% Saline Lock 10 ML Syringe IV (00:12)
[2025-02-28 00:40] VITALS: BMI 26.2
[2025-02-28 01:03] LABS: Troponin T High Sens 4 HR < 6 ng/L (<=14)
[2025-02-28 02:16] VITALS: BMI 26.2
[2025-02-28 03:00] VITALS: PULSE 65
[2025-02-28 03:06] VITALS: BP 119/66; PULSE 65; RESP 14; TEMP 36.7; O2SAT 100
[2025-02-28 04:53] VITALS: BMI 26.3
[2025-02-28 05:32] VITALS: BMI 26.3
--- NOTE | 2025-02-28 07:00 | MRI_ITS ---
PROCEDURE: BRAIN WITHOUT CONTRAST 02/28/2025 REASON FOR EXAM: CVA TECHNIQUE: BRAIN WITHOUT CONTRAST Multiplanar and multisequence images were obtained. COMPARISON: CTA head and neck February 27, 2025. FINDINGS: Brain: Restricted diffusion in the Carola insular left frontal and temporal lobes in addition to the left coronary radiata and basilar ganglia consistent with acute infarction within the left middle cerebral artery territory. No hemorrhagic conversion. No mass effect or midline shift. The craniocervical junction and the midline structures are within normal limits. Ventricles: No ventriculomegaly. Major Intracranial Vessels: Please refer to CTA head and neck. Sinuses: Clear. Mastoids: Clear. 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 No hemorrhagic conversion. Reading Location: [id number]
[2025-02-28 07:01] VITALS: BP 104/48; PULSE 71; RESP 15; TEMP 36.6; O2SAT 100
[2025-02-28 07:09] LABS: Hematocrit 41.8 % (37-47); Hemoglobin 14.5 g/dL (12.0-15.0); Immature Granulocytes Count 0.020 X10^3/uL (0.0-0.0); Mean Corp Hgb Conc 34.7 g/dL (32-36); Mean Corpuscular Volume 90.5 fL (81-99); Mean Platelet Vol. 9.4 fl (6.2-12.0); NRBC Flagged by Analyzer 0 % (0-5); Platelet Count 211 K/mm3 (150-450); RBC Distribution Width CV 13.4 % (11.6-14.6); RBC Distribution Width SD 44.7 fl (35.1-43.9); Red Blood Count 4.62 M/mm3 (4.2-5.4); White Blood Count 7.7 K/mm3 (4.4-11.0)
[2025-02-28 09:11] LABS: AST(SGOT) 16 U/L (<=31); Alanine Aminotransfer ALT/SGPT 20 U/L (<=34); Albumin, Serum 4.1 g/dL (3.5-5.0); Alkaline Phosphatase 71 U/L (35-104); Anion Gap 11 (5-15); BUN 16 mg/dL (4-19); BUN/Creat Ratio 21.6 RATIO (10-20); Calcium,Total 9.0 mg/dL (7.6-11.0); Carbon Dioxide 23.9 mmol/L (21.0-32.0); Chloride 104 mmol/L (98-108); Cholesterol 265 mg/dL (<=200); Estimated Creatinine Clearance 86.61 ml/min (50-250); Globulin 2.4 g/dL (2.2-4.2); Glucose 109 mg/dL (70-99); Low Density Lipoprotein Calc. 190 mg/dL; Potassium 4.0 mmol/L (3.3-5.1); Triglycerides 189 mg/dL; Very Low Density Lipoprotein 38 mg/dL (5-40); cholesterol:hdl ratio screen 7.03
--- NOTE | 2025-02-28 10:22 | CASEMGMT ---
RN?CM?ASSESSMENT ? RN?CM?to room to meet with patient for initial transition planning/care coordination?assessment.?RN?CM?introduced self and role at [facility].? Pt voices understanding and consents to?assessment?at this time.? Pt resting in bed in no distress at this time.? Pt is A/O at this time and answers all questions appropriately.?? Care providers, pharmacy, and demographics verified/updated at this time. ? Strata: 2 PCP: Dr Diaz Specialists: Dr Ambrose Olivares, neuro-surgeon @ [facility] Preferred Pharmacy: [facility] Insurance: [employer] Prescription Benefit:?yes LNOK: Daughter, Isabell (lives in [place]). Pt also has daughter who lives in [place]. Living Arrangements: Daughter, Isabell, is currently living w/pt. They live in a 2-story home w/2 steps to enter. Pt's bedroom is on 2nd floor and there is a bathroom on 2nd floor. There is a bathroom on main floor as well and pt could do FFSU, if needed. Pt states takes the stairs carefully. Pt is independent w/ADL's and IADL's. Daughter assists w/some home mgnt tasks. Transportation:?Pt states drives self and states no transportation concerns at this time.?D[place] take [place] @ [place] DME: States has the following DME:?grab bars, comfort height commodes, hospital bed, rollator, reachers. ?Pt states no need for further DME at this time.? [facility]. Pt has had [facility] multiple times in the past after back surgeries as well. Pt has went to [facility] for OP therapy. She currently goes there and works out on her own. Discussed discharge planning. Pt states if OP ST is recommended, she would be agreeable to doing that and would want to go to [facility]. She declines wanting/needing any further OP PT/OT, stating she has done that so many times in the past she knows what exercises to do on her own. Pt tearful on/off during assessment, stating she is having financial stressors d/t being unemployed. She states she has had 4 back surgeries and has not been able to return to work. She states she has tried to get on disability but has been denied. PRIMITIVO, Cait, made aware. ? Pt wishes to return home and states has no further concerns with going home at time of discharge. CM?to follow for any further discharge planning/needs.?Advised pt to ask for?CM?if any further questions/concerns/needs arise.? Voices understanding. ? PLAN: Home w/possible OP ST. ? ? Ivan BSN?RN?CM ?
[2025-02-28 10:56] VITALS: BP 115/57; PULSE 63; RESP 16; TEMP 36.6; O2SAT 100
--- NOTE | 2025-02-28 11:00 | NURSING ---
Pt refusing to put tele box back on at this time, education provided.
--- NOTE | 2025-02-28 12:29 | CON.PCM.NE_ITS ---
Assessment and Plan: Stroke Assessment/Plan ISAI DINERO is a 54 F with a history of Tobacco use, CKD stage II per GFR trending, Former EtOH abuse sober x 8 years, Chronic back pain, Asthma with allergic rhinitis, GERD who presents to the [facility] ED on 02/27/25 with history of onset expressive aphasia and slightly slurred speech starting at 1 PM in the afternoon on 02/26. She denies other symptoms. Not a tNK or MT candidate. Neurological examination shows Mild aphasia and right facial assymetry. Neuroimaging shows Left frontal stroke confirmed on MRI.CTA: Left ICA occlusion with distal reconstitution and left MCA occlusion M1 M2 with distal reconstitution Left MCA stroke from large vessel disease as she has left ICA occlusion. Also has R ICA moderate occlusion suspect asymptomatic Plan Started on ASA. Add Plavix. DAPT for 21 days then ASA alone Statin to keep LDL <70 ECHO pending Please obtain Carotid Duplex to help quantify degree of R ICA stenosis. Will likely need vascular surgery follow up for R ICA stenosis Smoking cessation Stroke education PT,OT evaluation Thanks for consult. Spent 70 min in evaluation and management of this patient. HPI Consult Data Date of Consult: 02/28/25 HPI Narrative HPI Narrative: ISAI DINERO, is a 54 F with Tobacco use, CKD stage II per GFR trending, Former EtOH abuse sober x 8 years, Chronic back pain, Asthma with allergic rhinitis, GERD who presents to the [facility] ED on 02/27/25 with history of onset expressive aphasia and slightly slurred speech starting at 1 PM in the afternoon on 02/26. She was having issues answering the phone and went to a meeting and was having difficulty speaking in front of large groups specifically issues finding her words and what to say and her friend also noticed that her speech was slightly slurred with no recent headaches or any other focal symptoms prompting ED evaluation. In the ED NIH stroke scale assessment 1 for very minimal dysarthria for answering a question inappropriately and potentially 2 at most per ED physician initial assessment. Not a candidate for TNK or MT. LDL: 190 HbA1C:5.7 CT of the brain with a left frontal lobe acute infarction CTA head and neck with complete occlusion of the left cervical ICA from its origin with diminutive distal reconstitution of the cavernous segment and ICA terminus likely from collateral flow, abrupt cut off of the left MCA distal M1/M2 segment junction with mostly preserved distal reconstitution although there is a regionally diminished vascularity in the left frontal upper lobe region corresponding to the location of the acute infarct, moderate stenosis of the proximal right cervical ICA due to atheromatous plaque. MRI: left frontal stroke ECHO: Pending [facility] Medical History CKD (chronic kidney disease), stage II Tobacco use History of alcohol abuse Asthma Back spasm Chronic back pain GERD (gastroesophageal reflux disease) Seasonal allergies Home Medications ?Medication ?Instructions ?Recorded ?Last Taken ?Type diphenhydramine HCl 25 mg tablet 25 mg PO QHS PRN LISA RGIES 10/12/18 02/27/25 22:00 History (Benadryl Allergy) 25 mg fexofenadine 180 mg tablet 180 mg PO DAILY allergies 0 10/12/18 02/27/25 08:00 History (Leilani Allergy) 180 mg ibuprofen 800 mg tablet 800 mg PO BID chronic back p ain 10/12/18 02/27/25 16:00 History 800 mg mometasone 50 mcg/actuation nasal 2 spray intranasal D AILY allergies 10/12/18 02/27/25 08:00 History spray (Nasonex) 2 spray spironolactone 50 mg tablet 50 mg PO BID fluid retenti on 10/12/18 02/27/25 16:30 History 50 mg albuterol sulfate 90 mcg/actuation 2 puff inhalation Q 4H PRN PRN 02/27/25 Unknown History aerosol inhaler wheezing docusate sodium 100 mg capsule 100 mg PO BID constipat ion 02/27/25 02/27/25 14:00 History (Colace) 100 mg famotidine 20 mg tablet (Acid 20 mg PO BID reflux 02/0502/27/25 16:00 History Controller) 20 mg Allergy/AdvReac Type Severity Reaction Status Date / Time niacin Allergy Nausea Verified 02/27/25 19:15 prednisone AdvReac Severe mood swings Verified 02/27/25 19:15 varenicline (From Chantix) AdvReac Severe mood swings Verified 02/27/25 19:15 Family History Father Diabetes Heart disease Myocardial infarction Mother Cancer Heart disease Brother Kidney disease Heart disease Surgical History (Updated 02/27/25 @ 21:[address] Heathre Fletcher MD) Previous back surgery Social History (Updated 02/27/25 @ 21:[address] Heather Fletcher MD) adopted: No household members: children housing: house number of children: 2 current occupational status: employed current occupation: works at [employer] current occupational exposures/hazards: No pets and animals: Yes Smoking Status: Current every day smoker tobacco type: cigarettes Smoking packs per day: 1 Smoking cigarettes per day: 20.0 alcohol intake: former substance use type: does not use seatbelt use: always do you feel safe at home: Yes Vital Signs Vital Signs Vital Signs: 02/27/25 19:15 02/27/25 19:50 02/27/25 19:50 Temperature 96 F L Temperature Source Temporal Pulse Rate 93 91 Respiratory Rate 18 30 H Blood Pressure 145/76 H 147/87 H Blood Pressure Mean 99 107 Blood Pressure Source Blood Pressure Position Blood Pressure Location Pulse Ox 97 99 Oxygen Delivery Method Room Air Room Air Room Air 02/27/25 20:01 02/27/25 20:30 02/27/25 21:00 Temperature Temperature Source Pulse Rate 88 87 64 Respiratory Rate 18 18 19 H Blood Pressure 112/83 H 114/78 138/78 H Blood Pressure Mean 92 90 98 Blood Pressure Source Blood Pressure Position Blood Pressure Location Pulse Ox 98 99 99 Oxygen Delivery Method Room Air 02/27/25 21:30 02/27/25 21:43 02/27/25 23:06 Temperature 98.3 F 98.2 F Temperature Source Oral Pulse Rate 66 70 71 Respiratory Rate 19 H 22 H 16 Blood Pressure 133/70 H 138/72 H 130/56 H Blood Pressure Mean 91 94 80 Blood Pressure Source Monitor Blood Pressure Position Semi-Fowlers Blood Pressure Location Right Arm Pulse Ox 99 97 100 Oxygen Delivery Method Room Air Room Air 02/27/25 23:26 02/28/25 03:00 02/28/25 03:06 Temperature 98.0 F Temperature Source Oral Pulse Rate 73 65 65 Respiratory Rate 14 Blood Pressure 119/66 Blood Pressure Mean 83 Blood Pressure Source Monitor Blood Pressure Position Supine Blood Pressure Location Right Arm Pulse Ox 100 Oxygen Delivery Method Room Air 02/28/25 07:01 02/28/25 07:58 02/28/25 10:56 Temperature 97.8 F 97.8 F Temperature Source Oral Oral Pulse Rate 71 63 Respiratory Rate 15 16 Blood Pressure 104/48 L 115/57 L Blood Pressure Mean 66 76 Blood Pressure Source Monitor Monitor Blood Pressure Position Sitting Semi-Fowlers Blood Pressure Location Left Arm Right Arm Pulse Ox 100 100 Oxygen Delivery Method Room Air Room Air Room Air Weight Weight: 71.7 kg Body Mass Index (BMI) 26.3 EEG Results Procedure Details EEG Procedure Details: ISAI DINERO is a 54 year old F with a past medical history of , who presents for evaluation of Electroencephalogram on DATE at TIME Physical Exam Const alert, oriented x3 and no apparent distress General Appearance: cooperative, comfortable and well kempt Eyes Eyes Narrative: Awake, alert, oriented X3 Mild decreased fluency.Can name simple objects CN 2-12 intact.R facial droop Motor: 5/5 Sensation: Intact No ataxia Lab / Micro Data 02/28/25 06:38 02/28/25 06:38 Labs: Laboratory Results - last 24 hr 02/27/25 19:35: WBC 10.2, RBC 4.87, Hgb 15.0, Hct 43.8, MCV 89.9, MCH 30.8, MCHC 34.2, RDW Std Deviation 44.0 H, RDW Coeff of Josemanuel 13.3, Plt Count 248, MPV 9.1, Immature Gran % (Auto) 0.300, Neut % (Auto) 57.2, Lymph % (Auto) 32.8, [place] % (Auto) 8.0, Eos % (Auto) 1.1, Baso % (Auto) 0.6, Absolute Neuts (auto) 5.9, Absolute Lymphs (auto) 3.36, Nucleated RBC % 0, PT 16.6 H, INR 1.3, APTT 29.5, Sodium 136, Potassium 4.2, Chloride 99, Carbon Dioxide 23.1, Anion Gap 14, BUN 21 H, Creatinine 0.89, Estim Creat Clear Calc 69.60, Est GFR (MDRD) Non-Af 76, B UN/Creatinine Ratio 23.7 H, Glucose 107 H, Calcium 9.3, Magnesium 2.1, Troponin T High Sens < 6 02/27/25 21:03: POC Glucose 103 02/27/25 21:38: Troponin T Hi Sens 2 Hr < 6 02/27/25 23:56: Troponin T Hi Sens 4Hr < 6 02/28/25 06:38: WBC 7.7, RBC 4.62, Hgb 14.5, Hct 41.8, MCV 90.5, MCH 31.4, MCHC 34.7, RDW Std Deviation 44.7 H, RDW Coeff of Josemanuel 13.4, Plt Count 211, MPV 9.4, Immature Gran % (Auto) 0.300, Neut % (Auto) 52.2, Lymph % (Auto) 36.6, [place] % (Auto) 8.4, Eos % (Auto) 2.1, Baso % (Auto) 0.4, Absolute Neuts (auto) 4.0, Absolute Lymphs (auto) 2.82, Nucleated RBC % 0, Sodium 139, Potassium 4.0, Chloride 104, Carbon Dioxide 23.9, Anion Gap 11, BUN 16, Creatinine 0.72, Estim Creat Clear Calc 86.61, Est GFR (MDRD) Non-Af 98, BUN/Creatinine Ratio 21.6 H, G lucose 109 H, Hemoglobin A1c 5.7, Calcium 9.0, Total Bilirubin 0.33, AST 16, ALT 20, Alkaline Phosphatase 71, Total Protein 6.5, Albumin 4.1, Globulin 2.4, Albumin/Globulin Ratio 1.8, Triglycerides 189, Cholesterol 265 H, LDL Cholesterol, Calc 190, VLDL Cholesterol 38, HDL Cholesterol 38 L, Cholesterol/HDL Ratio 7.03, TSH 3.520 Imaging Radiology Impression Brain CT 02/27/25 19:31 IMPRESSION: Left frontal lobe acute infarction. Critical results communicated to Dr. Kip Resendiz at 8:12 p.m.. Reading Location: [id number] Head/Neck CTA 02/27/25 19:50 IMPRESSION: 1. Complete occlusion of the left cervical ICA from its origin, with diminutive distal reconstitution at the cavernous segment and ICA terminus likely from collateral flow. 2. Abrupt cutoff of the left MCA distal M1-M2 segment junction, with mostly preserved distal reconstitution although there is regional diminished vascularity in the left frontal opercular region corresponding to the location of the acute infarct. 3. Moderate stenosis of the proximal right cervical ICA due to atheromatous plaque. Findings discussed via telephone with provider Kip Resendiz 02/27/2025 at 7:20 p.m. [employer]OL[employer]. Reading Location: [id number] Active Medications Active Medications Active Medications: Current Medications Generic Name Dose Route Start Last Admin Trade Name Freq PRN Reason Stop Dose Admin Acetaminophen 650 mg 02/27/25 22:53 02/28/25 00:47 Acetaminophen 325 Mg Tablet PO 650 mg Q4H PRN PRN Administration Fever, pain 1-10 Al Hydroxide/Mg Hydroxide 30 ml 02/27/25 22:53 Mag Hydrox/Al Hydrox/Simeth 30 Ml Udc PO Q6H PRN PRN Gastric Burning Aspirin 81 mg 02/28/25 08:00 02/28/25 11:03 Aspirin 81 Mg Tab.Chew PO 81 mg BREAKFAST CHRIS Administration Atorvastatin Calcium 80 mg 02/27/25 22:53 02/28/25 00:13 Atorvastatin Calcium 80 Mg Tablet PO 80 mg QHS CHRIS Administration Enoxaparin Sodium 40 mg 02/28/25 10:00 02/28/25 11:03 Enoxaparin 40 Mg/0.4 Ml Syringe SC 40 mg DAILY CHRIS Administration Famotidine 20 mg 02/27/25 23:15 02/28/25 11:03 Famotidine 20 Mg Tablet PO 20 mg BID CHRIS Administration Fluticasone Propionate 2 spray 02/28/25 10:00 02/28/25 11:07 Fluticasone 0.05% 1 [place] Nasal.Sry NASAL Not Given DAILY CHRIS Guaifenesin 20 ml 02/27/25 22:53 Guaifenesin 10 Ml Udc (200mg/10ml) PO Q4H PRN PRN COUGH Hydralazine HCl 5 mg 02/27/25 22:53 Hydralazine 20 Mg/Ml Vial IV 02/28/25 22:53 Q30M PRN maintain BP parameters with HR <60 Sodium Chloride 250 mls @ 15 mls/hr 02/27/25 23:00 IV .[id number] PRN Saline Flush Sodium Chloride 250 mls @ 15 mls/hr 02/27/25 23:00 IV .[id number] PRN Additional IVPB Infusion Ibuprofen 800 mg 02/28/25 10:30 02/28/25 11:03 Ibuprofen 400 Mg Tablet PO 800 mg BID CHRIS Administration Labetalol HCl 10 - 20 mg 02/27/25 22:53 Labetalol 20 Mg/4 Ml Vial IV 02/28/25 22:53 Q10M PRN PRN maintain BP parameters with HR >/=60 Loratadine 10 mg 02/28/25 10:00 02/28/25 11:07 Loratadine 10 Mg Tablet PO Not Given DAILY CHRIS Melatonin 3 mg 02/27/25 22:53 Melatonin 3 Mg Tablet PO QHS PRN PRN INSOMNIA Nicotine Polacrilex 2 mg 02/27/25 22:53 02/28/25 11:08 Nicotine Polacrilex 2 Mg Gum PO 2 mg Q2H PRN PRN Administration Nicotine Craving Ondansetron HCl 4 mg 02/27/25 22:53 Ondansetron 4 Mg/2 Ml Vial IV Q8H PRN PRN NAUSEA/VOMITING Senna/Docusate Sodium 2 tablet 02/27/25 22:53 Senna/Docusate Sodium 1 Tablet PO BID PRN PRN Constipation Sodium Chloride 10 - 40 ml 02/27/25 23:00 02/28/25 00:12 0.9% Saline Lock 10 Ml Syringe IV 10 ml UD PRN Administration SALINE FLUSH NIHSS NIHSS Nursing Documentation NIHSS Nursing Documentation: NIHSS: Ischemic Stroke/TIA Start: 02/27/25 22:53 Text: For PCU Patients: NIH and Neuro Check every 4 Status: Active hours, PRN and with change in RN caregiver. Freq: [id number] Protocol: Activity Type Activity Date Activity User E-sign Co-sign Detail Recorded Client Recorded Date Recorded By Document 02/28/25 10:56 [id number] 02/28/25 11:02 02/28/25 10:56 NIH Stroke Scale [NIHSS] A score of 0 is normal or asymptomatic . Total possible score is 42. Inpatient: RN or Physician to activate a stroke alert for onset of new stroke symptoms or with NIHSS increase >/= 3 points. Following change in neurological status, NIHSS will be performed per physician order or more frequently PRN. -1a. Level of Consciousness 0 - Alert; keenly responsive -1b. LOC Questions 0 - Answers BOTH questions correctly -1c. LOC Commands 0 - Performs BOTH tasks correctly -2. Best Gaze 0 - Normal -3. Visual 0 - No visual loss -4. Facial Palsy 1 - Minor paralysis ( flattened nasolabial fold , asymmetry on smiling) -5a. Left Arm 0 - No drift; arm holds 90 ( or 45) degrees for full 10 seconds -5b. Right Arm 0 - No drift; arm holds 90 ( or 45) degrees for full 10 seconds -6a. Left Leg 0 - No drift; leg holds 30- degree position for full 5 seconds -6b. Right Leg 0 - No drift; leg holds 30- degree position for full 5 seconds -7. Limb Ataxia 0 - Absent -8. Sensory 0 - Normal; no sensory loss -9. Best Language 1 - Mild-to- moderate aphasia; -10. Dysarthria 0 - Normal -11. Extinction and Inattention 0 - No abnormality -Total 2 Query Text:A score of 0 is normal or asymptomatic. Total possible score is 42 . ED: Notify Physician for NIHSS increase by > / = 3 points. Inpatient: RN or Physician to activate a stroke alert for NIHSS increase of > / = 3 points. Coma Scale [Assess] -Eye Opening Spontaneous -Motor Obeys Commands -Verbal Oriented [Total] -Coma Scale Total 15 NIHSS 1a. Level of Consciousness: 0 - Alert; keenly responsive 1b. LOC Questions: 0 - Answers BOTH questions correctly 1c. LOC Commands: 0 - Performs BOTH tasks correctly 2. Best Gaze: 0 - Normal 3. Visual: 0 - No visual loss 4. Facial Palsy: 1 - Minor paralysis (flattened nasolabial fold, asymmetry on smiling) 5a. Left Arm: 0 - No drift; arm holds 90 (or 45) degrees for full 10 seconds 5b. Right Arm: 0 - No drift; arm holds 90 (or 45) degrees for full 10 seconds 6a. Left Le - No drift; leg holds 30-degree position for full 5 seconds 6b. Right Le - No drift; leg holds 30-degree position for full 5 seconds 7. Limb Ataxia: 0 - Absent 9. Best Language: 1 - [id number] aphasia; 10. Dysarthria: 0 - Normal 11. Extinction and Inattention: 0 - No abnormality Total: 2
--- NOTE | 2025-02-28 12:33 | PN_ITS ---
Subjective Subjective Patient seen and examined. She was admitted with a complaint of expressive aphasia. She is still having some expressive aphasia though she says it has improved a bit for now. CT brain did show a left frontal lobe ischemia, and she is awaiting MRI and 2D echo. Objective Data Objective Data Vital Signs: Vital Signs Temp Pulse Resp BP Pulse Ox O2 Del Method 97.8 F 63 16 115/57 L 100 Room Air 02/28/25 10:56 02/28/25 10:56 02/28/25 10:56 02/28/25 10:56 02/28/25 10:56 02/28/25 10:56 Oxygen Delivery Method Room Air Weight: 158 lb 1.143 oz Body Mass Index (BMI) 26.3 Intake & Output: Intake and Output for Last 24 Hours 02/26/25 02/27/25 02/28/25 23:59 23:59 23:59 Intake Total 1000 / 1000 Balance 1000 / 1000 Lab / Micro Data 02/28/25 06:38 02/28/25 06:38 Labs: Laboratory Results - last 24 hr 02/27/25 19:35: WBC 10.2, RBC 4.87, Hgb 15.0, Hct 43.8, MCV 89.9, MCH 30.8, MCHC 34.2, RDW Std Deviation 44.0 H, RDW Coeff of Josemanuel 13.3, Plt Count 248, MPV 9.1, Immature Gran % (Auto) 0.300, Neut % (Auto) 57.2, Lymph % (Auto) 32.8, [place] % (Auto) 8.0, Eos % (Auto) 1.1, Baso % (Auto) 0.6, Absolute Neuts (auto) 5.9, Absolute Lymphs (auto) 3.36, Nucleated RBC % 0, PT 16.6 H, INR 1.3, APTT 29.5, Sodium 136, Potassium 4.2, Chloride 99, Carbon Dioxide 23.1, Anion Gap 14, BUN 21 H, Creatinine 0.89, Estim Creat Clear Calc 69.60, Est GFR (MDRD) Non-Af 76, B UN/Creatinine Ratio 23.7 H, Glucose 107 H, Calcium 9.3, Magnesium 2.1, Troponin T High Sens < 6 02/27/25 21:03: POC Glucose 103 02/27/25 21:38: Troponin T Hi Sens 2 Hr < 6 02/27/25 23:56: Troponin T Hi Sens 4Hr < 6 02/28/25 06:38: WBC 7.7, RBC 4.62, Hgb 14.5, Hct 41.8, MCV 90.5, MCH 31.4, MCHC 34.7, RDW Std Deviation 44.7 H, RDW Coeff of Josemanuel 13.4, Plt Count 211, MPV 9.4, Immature Gran % (Auto) 0.300, Neut % (Auto) 52.2, Lymph % (Auto) 36.6, [place] % (Auto) 8.4, Eos % (Auto) 2.1, Baso % (Auto) 0.4, Absolute Neuts (auto) 4.0, Absolute Lymphs (auto) 2.82, Nucleated RBC % 0, Sodium 139, Potassium 4.0, Chloride 104, Carbon Dioxide 23.9, Anion Gap 11, BUN 16, Creatinine 0.72, Estim Creat Clear Calc 86.61, Est GFR (MDRD) Non-Af 98, BUN/Creatinine Ratio 21.6 H, G lucose 109 H, Hemoglobin A1c 5.7, Calcium 9.0, Total Bilirubin 0.33, AST 16, ALT 20, Alkaline Phosphatase 71, Total Protein 6.5, Albumin 4.1, Globulin 2.4, Albumin/Globulin Ratio 1.8, Triglycerides 189, Cholesterol 265 H, LDL Cholesterol, Calc 190, VLDL Cholesterol 38, HDL Cholesterol 38 L, Cholesterol/HDL Ratio 7.03, TSH 3.520 Radiography Diagnostic Testing: Radiology Impression Brain CT 02/27/25 19:31 IMPRESSION: Left frontal lobe acute infarction. Critical results communicated to Dr. Kip Resendiz at 8:12 p.m.. Reading Location: [id number] Head/Neck CTA 02/27/25 19:50 IMPRESSION: 1. Complete occlusion of the left cervical ICA from its origin, with diminutive distal reconstitution at the cavernous segment and ICA terminus likely from collateral flow. 2. Abrupt cutoff of the left MCA distal M1-M2 segment junction, with mostly preserved distal reconstitution although there is regional diminished vascularity in the left frontal opercular region corresponding to the location of the acute infarct. 3. Moderate stenosis of the proximal right cervical ICA due to atheromatous plaque. Findings discussed via telephone with provider Kip Resendiz 02/27/2025 at 7:20 p.m. [employer]. Reading Location: [facility] Physical Exam Const alert and oriented x3 Constitutional Narrative: a bit anxious in lgiht of ongoing expressive aphasia HEENT normocephalic, head/scalp atraumatic and oropharynx normal Neck no lymphadenopathy and supple Lymph Lymphatic: no lymphedema noted Resp normal respiratory effort, normal air movement and clear to auscultation bilaterally Cardio regular rate, regular rhythm, S1 normal heart sound, S2 normal heart sound and no murmurs GI normal to inspection, nondistended, normoactive bowel sounds, soft to palpation, non-tender and non-distended Extremity normal capillary refill General Extremity: no tenderness to palpation of joints or extremities Skin General Skin Exam: no breakdown Neuro no focal motor deficits Neuro Narrative: has moderate expressive aphasia Motor Exam: general weakness Psych thought process normal Mood & Affect: anxious Assessment & Plan Assessment/Plan (1) Stroke: (2) Expressive aphasia: PLAN: Plan EXpressive aphasia due to acute CVA * admitted with a complaint of expressive aphasia * CT brain showed an acute left frontal lobe infarct * CTA head and neck showed complete occlusion of the left cervical ICA from its origin with diminutive distal reconstitution of the cavernous segment as well as abrupt cut off of the left MCA distal M1-M2 segment with mostly preserved distal reconstitution and moderate stenosis of the proximal right cervical ICA due to atheromatous plaque * MRI of the brain done and pending. On p.o. aspirin and high intensity statin * Speech therapy and PT/OT on board * fall precautions * will benefit from follow up with vascular surgery on outpatient basis * neurology consulted. * # Elevated BP: Not hypertensive though she is on spironolactone for hirsutism and skin issues. Regimen.-Currently allow for permissive hypertension in light of acute stroke #PT OT on board. #Nicotine use disorder: Patient says she smokes about a pack a day. Counseled to quit. #GERD: On ranitidine DVT prophylaxis: Lovenox Charges/Coding Visit Charges Inpatient E&M: 78801 Subs Hosp L2
[2025-02-28 12:43] VITALS: BMI 26.3
--- NOTE | 2025-02-28 14:27 | CDU_ITS ---
Reason For Study Reason For Study: Carotid Stenosis Rt. Velocities/BP Lt. Velocities/BP Prox CCA 74.0/20.1 cm/sec. Prox CCA 47.6/0.0 cm/sec. Mid CCA 66.3/24.5 cm/sec. Mid CCA 35.2/6.9 cm/sec. Dist CCA 69.6/27.8 cm/sec. Dist CCA 31.5/8.8 cm/sec. Prox ICA 179.6/68.2 cm/sec. Prox ICA 29.8/0.0 cm/sec. Mid ICA 90.7/33.6 cm/sec. Lt. ICA/CCA = 0.8. Dist ICA 101.0/38.9 cm/sec. Prox ECA 376.1/70.8 cm/sec. Rt. ICA/CCA = 2.7. Lt. Vert. 79.1/24.3 cm/sec. Prox ECA 187.4/26.7 cm/sec. Rt. Vert. 64.2/21.2 cm/sec. Right Extracranial There is homogeneous, smooth atherosclerotic plaque noted in the right common carotid artery. There is heterogeneous, irregular atherosclerotic plaque noted in the right internal carotid artery. There is homogeneous, smooth atherosclerotic plaque noted in the right external carotid artery. Antegrade flow is noted in the right vertebral artery. Left Extracranial There is homogeneous, smooth atherosclerotic plaque noted in the left common carotid artery. There is heterogeneous, irregular atherosclerotic plaque noted in the left internal carotid artery. The left internal carotid artery is occluded. There is intimal thickening but no significant atherosclerotic plaque noted in the left external carotid artery. Antegrade flow is noted in the left vertebral artery. Procedure Carotid Duplex [id number]. This is a Carotid Duplex examination using B-mode, color flow and specral Doppler. Exam performed portable in patient room. Preliminary report given to PHILIPPE Guthrie RN. VL/Carotid Duplex Ultrasound Interpretation Summary Moderate (50-69%) stenosis right extracranial internal carotid. Occlusion of the left extracranial internal carotid. Patent and antegrade vertebrals bilaterally. Ordering Physician: Mary Cooley Referring Physician: Elvin Diaz M.D. Performed By: Cornelia Cantu RVT
--- NOTE | 2025-02-28 14:27 | DCINST_ITS ---
Discharge Instructions DC O2, CPAP, BIPAP needs Home O2 Discharge instructions: No Dressing / Incision Discharge Activity: Return to Normal Activity Weight Bearing Status: Weight bearing as tolerated Dressing / Incision Call your doctor if you observe: Fever of 101 or Higher, Shortness of breath, Dizziness, Swelling in the ankles, Chest pain and - (focal weakness, worsening slurred speech and difficulty finding words) Follow Up Care Test Results: Test results from this visit will be discussed in further detail at your follow- up appointment, if applicable. Discharge Plan Admission Admit Date/Time: 02/27/25 21:13 Primary Reason for Your Visit: acute CVA Attending Provider: Mary Cooley Primary Care Provider: Elvin Diaz Consulting Providers: Gregorio Marroquin; Jazlyn Arita; Geovanna Pierce; Vivian Hui; Meg Mccoy; Yusef Abad; Nicole Reis; Jose Kauffman; Willem Aguilar; Drew Jaramillo; Greer King; Leobardo Alvarado; Daniella Arboleda; Kera Woodruff; Yemi Miller; Shaji Yanes; Thania Rosales; Pankaj Fiore; Karla Shepard; Shannen Hamilton; Heather Fletcher Discharge Orders/Prescriptions Prescriptions: New aspirin 81 mg tablet 81 mg PO DAILY Qty: 30 2RF clopidogrel 75 mg tablet 75 mg PO DAILY Qty: 30 2RF atorvastatin [Lipitor] 80 mg tablet 80 mg PO QHS Qty: 30 2RF Continued spironolactone 50 mg tablet 50 mg PO BID ibuprofen 800 mg tablet 800 mg PO BID fexofenadine [Leilani Allergy] 180 mg tablet 180 mg PO DAILY diphenhydramine HCl [Benadryl Allergy] 25 mg tablet 25 mg PO QHS PRN (Reason: ALLERGIES) mometasone [Nasonex] 50 mcg/actuation spray,non-aerosol 2 spray INTRANASAL DAILY famotidine [Acid Controller] 20 mg tablet 20 mg PO BID albuterol sulfate 90 mcg/actuation HFA aerosol inhaler 2 puff inhalation Q4H PRN PRN (Reason: wheezing) docusate sodium [Colace] 100 mg capsule 100 mg PO BID Referrals / Follow Up: Rudi Hamilton MD [Med Staff - Active Staff] - Within 1 Month (see o./a of carotid stenosis) Flaco Aguero MD [Non-Staff -Ordering Privileges] - Within 2 Weeks Elvin Diaz MD [Primary Care Provider] - Within 1 Week Disposition Disposition (needs filled in before D/C Order can be placed): Home, Self Care
--- NOTE | 2025-02-28 14:40 | DS.PCM_ITS ---
Providers Date of Admission: 02/27/25 Date of Discharge: 02/28/25 Primary Care Physician: Dr. Elvin Diaz MD Consultations 02/27/25 22:53 Consult: Tele-Neurology Routine Consulting Provider: [facility] Reason for Consult: Acute Ischemic Stroke/TIA EMERGENT Consult: No MD Notified: Yes Date Notified: 02/28/25 Time Notified: 02:45 Method of Notification: Answering Service Method of Consult:: Telemedicine Comments:: Dr Pierce Nursing [facility] Staff Notify [facility] of Tele-Neurology Consult: Yes Reason For Visit: ACUTE CVA Diagnosis Discharge Diagnosis (1) Stroke: Status: Acute Code(s): I63.9 - Cerebral infarction, unspecified (2) Expressive aphasia: Status: Acute Code(s): R47.01 - Aphasia Plan EXpressive aphasia due to acute CVA * admitted with a complaint of expressive aphasia * CT brain showed an acute left frontal lobe infarct * CTA head and neck showed complete occlusion of the left cervical ICA from its origin with diminutive distal reconstitution of the cavernous segment as well as abrupt cut off of the left MCA distal M1-M2 segment with mostly preserved distal reconstitution and moderate stenosis of the proximal right cervical ICA due to atheromatous plaque * MRI of the brain done and pending. On p.o. aspirin and high intensity statin * Speech therapy and PT/OT on board * fall precautions * will benefit from follow up with vascular surgery on outpatient basis * neurology consulted. * # Elevated BP: Not hypertensive though she is on spironolactone for hirsutism and skin issues. Regimen.-Currently allow for permissive hypertension in light of acute stroke #PT OT on board. #Nicotine use disorder: Patient says she smokes about a pack a day. Counseled to quit. #GERD: On ranitidine DVT prophylaxis: Lovenox Medications at Discharge Home Medications diphenhydramine HCl 25 mg tablet (Benadryl Allergy) 25 mg PO QHS PRN ALLERGIES 10/12/18 fexofenadine 180 mg tablet (Leilani Allergy) 180 mg PO DAILY allergies 10/12/18 mometasone 50 mcg/actuation nasal spray (Nasonex) 2 spray intranasal DAILY allergies 10/12/18 spironolactone 50 mg tablet 50 mg PO BID fluid retention 10/12/18 albuterol sulfate 90 mcg/actuation aerosol inhaler 2 puff inhalation Q4H PRN PRN wheezing 02/27/25 docusate sodium 100 mg capsule (Colace) 100 mg PO BID constipation 02/27/25 famotidine 20 mg tablet (Acid Controller) 20 mg PO BID reflux 02/27/25 aspirin 81 mg tablet 81 mg PO DAILY #30 tabs 02/28/25 atorvastatin 80 mg tablet (Lipitor) 80 mg PO QHS #30 tabs 02/28/25 clopidogrel 75 mg tablet 75 mg PO DAILY #30 tabs 02/28/25 Hospital Course Summary of Care Provided Minutes Spent on Discharge: 48 Hospital Course: Patient is a 54 y./op female with a PMH as outlined with a complaint of expressive aphasia and slurred speech whish stated at ~ 1pm on the day prior to admission. She said she was having difficulty finding words whilst on the phone and later went to a meeting where she was also noted to be having difficulty speaking to people in th meeting, having finding words. Her friends also noticed her speech was slightlyslured. In the ED< she was found to have NIHSS of [address] of the brain showed a left frontal lobe acute infarction. 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 She was admitted and managed for acute CVA. She admitted to a history of smoking. [facility] reviewed patient and did not think she was a candidate for TNK. SHe was admitted to be managed for acute CVA. She was started on aspirin and high intensity statin. She had MRI of the brain which showed acute infarction within the left middle cerebral artery territory involving the per-insular and basal ganglia regions with no hemorrhagic conversion. She also had a 2D echo which showed EF of 65% with normal LV systolic function and no regional wall motion abnormalities noted and negative bubble study. [facility] reviewed her and recommended that she be started on plavix also in addition to the aspirin and high intensity statin. She is to follow up with her PCP and was referred to neurology on outpatient basis. She was also referred to vascular surgery on outpatient basis. Carotid USG was also ordered but was pending at time of discharge. She was counseled to stop smoking. Patient seen and examined prior to discharge. She had no active complaints. She was tearful because she said she had had some major surgeries recently and was concerned about the cost of the stroke also. Labs and vitals reviewed. Home meds reviewed and reconciled. Physical Exam Const alert and oriented x3 Constitutional Narrative: a bit anxious in light of ongoing expressive aphasia HEENT normocephalic, head/scalp atraumatic, hearing grossly normal bilaterally and oropharynx normal Mouth: oral and palatal mucosa normal Eyes EOMs intact bilaterally and conjunctivae normal Neck no lymphadenopathy and supple Lymph Lymphatic: no lymphedema noted Resp normal respiratory effort, normal air movement and clear to auscultation bilaterally Cardio regular rate, regular rhythm, S1 normal heart sound, S2 normal heart sound and no murmurs GI normal to inspection, nondistended, normoactive bowel sounds, soft to palpation, non-tender and non-distended Extremity normal to inspection, full ROM and normal capillary refill General Extremity: no tenderness to palpation of joints or extremities Skin General Skin Exam: no breakdown Neuro oriented x3, moves all extremities and no focal motor deficits Neuro Narrative: has moderate expressive aphasia Sensorium / Orientation: awake Psych thought process normal Mood & Affect: anxious Weight / BMI Weight Weight: 158 lb 1.143 oz Body Mass Index (BMI) 26.3 ABG / Lab / Microbiology Data 02/28/25 06:38 02/28/25 06:38 Laboratory: Laboratory Results - last 24 hr 02/27/25 19:35: WBC 10.2, RBC 4.87, Hgb 15.0, Hct 43.8, MCV 89.9, MCH 30.8, MCHC 34.2, RDW Std Deviation 44.0 H, RDW Coeff of Josemanuel 13.3, Plt Count 248, MPV 9.1, Immature Gran % (Auto) 0.300, Neut % (Auto) 57.2, Lymph % (Auto) 32.8, Nash % (Auto) 8.0, Eos % (Auto) 1.1, Baso % (Auto) 0.6, Absolute Neuts (auto) 5.9, Absolute Lymphs (auto) 3.36, Nucleated RBC % 0, PT 16.6 H, INR 1.3, APTT 29.5, Sodium 136, Potassium 4.2, Chloride 99, Carbon Dioxide 23.1, Anion Gap 14, BUN 21 H, Creatinine 0.89, Estim Creat Clear Calc 69.60, Est GFR (MDRD) Non-Af 76, B UN/Creatinine Ratio 23.7 H, Glucose 107 H, Calcium 9.3, Magnesium 2.1, Troponin T High Sens < 6 02/27/25 21:03: POC Glucose 103 02/27/25 21:38: Troponin T Hi Sens 2 Hr < 6 02/27/25 23:56: Troponin T Hi Sens 4Hr < 6 02/28/25 06:38: WBC 7.7, RBC 4.62, Hgb 14.5, Hct 41.8, MCV 90.5, MCH 31.4, MCHC 34.7, RDW Std Deviation 44.7 H, RDW Coeff of Josemanuel 13.4, Plt Count 211, MPV 9.4, Immature Gran % (Auto) 0.300, Neut % (Auto) 52.2, Lymph % (Auto) 36.6, Nash % (Auto) 8.4, Eos % (Auto) 2.1, Baso % (Auto) 0.4, Absolute Neuts (auto) 4.0, Absolute Lymphs (auto) 2.82, Nucleated RBC % 0, Sodium 139, Potassium 4.0, Chloride 104, Carbon Dioxide 23.9, Anion Gap 11, BUN 16, Creatinine 0.72, Estim Creat Clear Calc 86.61, Est GFR (MDRD) Non-Af 98, BUN/Creatinine Ratio 21.6 H, G lucose 109 H, Hemoglobin A1c 5.7, Calcium 9.0, Total Bilirubin 0.33, AST 16, ALT 20, Alkaline Phosphatase 71, Total Protein 6.5, Albumin 4.1, Globulin 2.4, Albumin/Globulin Ratio 1.8, Triglycerides 189, Cholesterol 265 H, LDL Cholesterol, Calc 190, VLDL Cholesterol 38, HDL Cholesterol 38 L, Cholesterol/HDL Ratio 7.03, TSH 3.520 Radiography Diagnostic Testing: Radiology Impression Echocardiogram 02/27/25 22:53 Interpretation Summary Normal LV size. Left ventricular systolic function is normal. The left ventricular ejection fraction is 65 %. Bubble contrast study negative for right to left interatrial shunt. Ordering Physician: Heather Fletcher Referring Physician: Elvin Diaz M.D. Performed By: Faye Knutson and Student Brain MRI 02/28/25 07:00 IMPRESSION: Acute infarction within the left middle cerebral artery territory involving the Car[place] insular and basilar ganglia regions. No hemorrhagic conversion. Reading Location: [facility] D/C Instructions Weight Bearing Status: Weight bearing as tolerated Call your doctor if you observe: Fever of 101 or Higher, Shortness of breath, Dizziness, Swelling in the ankles, Chest pain and - (focal weakness, worsening slurred speech and difficulty finding words) DC O2, CPAP, BIPAP Needs Home O2 Discharge instructions: No Meaningful Use Info Meaningful Use Meaningful Use Diagnoses (Choose all that apply): Ischemic CVA CVA Therapy Assessed for PT,OT and/or ST?: Yes Ischemic Stroke Antithrombotic order at d/c?: Yes Dx of Atrial fib/flutter?: No Anticoagulant at discharge?: No Reason anticoagulant not ordered: Treatment not Indicated Statins at discharge?: Yes If patient is 75 or younger, pt will be discharged on HIGH intensity statin.: Y es Primary Dx Acute Ischemic CVA?: Yes IV thrombolytic ordered during stay?: No Reason IV thrombolytic not ordered: Treatment not Indicated Discharge Plan Admission Admit Date/Time: 02/27/25 21:13 Primary Reason for Your Visit: acute CVA Attending Provider: Mary Cooley Primary Care Provider: Elvin Diaz Consulting Providers: Gregorio Marroquin; Jazlyn Arita; Geovanna Pierce; Vivian Hui; Meg Mccoy; Yusef Abad; Nicole Reis; Jose Kauffman; Willem Aguilar; Drew Jaramillo; Greer King; Leobardo Alvarado; Daniella Arboleda; Kera Woodruff; Yemi Miller; Shaji Yanes; Tahnia Rosales; Pankaj Fiore; Karla Shepard; Shannen Hamilton; Heather Fletcher Instructions Patient Instructions: Carotid Artery Problems: Stroke, Booklet - [facility] Stroke ED - Living After Stroke Discharge Orders/Prescriptions Prescriptions: New aspirin 81 mg tablet 81 mg PO DAILY Qty: 30 2RF clopidogrel 75 mg tablet 75 mg PO DAILY Qty: 30 2RF atorvastatin [Lipitor] 80 mg tablet 80 mg PO QHS Qty: 30 2RF Continued spironolactone 50 mg tablet 50 mg PO BID fexofenadine [Leilani Allergy] 180 mg tablet 180 mg PO DAILY diphenhydramine HCl [Benadryl Allergy] 25 mg tablet 25 mg PO QHS PRN (Reason: ALLERGIES) mometasone [Nasonex] 50 mcg/actuation spray,non-aerosol 2 spray INTRANASAL DAILY famotidine [Acid Controller] 20 mg tablet 20 mg PO BID albuterol sulfate 90 mcg/actuation HFA aerosol inhaler 2 puff inhalation Q4H PRN PRN (Reason: wheezing) docusate sodium [Colace] 100 mg capsule 100 mg PO BID Discontinued ibuprofen 800 mg tablet 800 mg PO BID Referrals / Follow Up: Rudi Hamilton MD [Med Staff - Active Staff] - Within 1 Month (see o./a of carotid stenosis) Flaco Aguero MD [Non-Staff -Ordering Privileges] - Within 2 Weeks Elvin Diaz MD [Primary Care Provider] - Within 1 Week Disposition Disposition (needs filled in before D/C Order can be placed): Home, Self Care Charges/Coding Visit Charges Inpatient E&M: 16213 Disch Hosp >30min
--- NOTE | 2025-02-28 14:48 | CASEMGMT ---
RN SUSY received script for outpatient ST. RN CM sent referral to [email or web address] as requested. RN SUSY requested [email or web address] to call daugther to schedule appt. RN SUSY updated SW and discharge plan.
[2025-02-28 14:56] VITALS: BP 124/61; PULSE 62; RESP 16; TEMP 36.6; O2SAT 98
--- NOTE | 2025-02-28 15:07 | CASEMGMT ---
Social Work Pt completed PHQ-9 w/SW. Though pt scored a 1, she is having a difficult time given all of the health issues she has had. SW offered support. SW inquired if she would be interested in counseling resources, she is. SW provided a list of counseling resources to pt. ANGIE Conley
== END 2025-02-28 17:04 | disposition home or self-care (01) | DRG 45 ==
LOC: ED 21:27 → PCU 21:55
PROVIDERS: Admitting Provider Family Medicine; Emergency Provider Emergency Medicine; PCP Internal Medicine; Visit Provider Student in an Organized Health Care Education/Training Program
DX: I63.512 Cerebral infarction due to unspecified occlusion or stenosis of left middle cerebral artery (principal); R47.01 Aphasia; I65.23 Occlusion and stenosis of bilateral carotid arteries; J45.909 Unspecified asthma, uncomplicated; K21.9 Gastro-esophageal reflux disease without esophagitis; F17.210 Nicotine dependence, cigarettes, uncomplicated; N18.2 Chronic kidney disease, stage 2 (mild); R47.81 Slurred speech; R03.0 Elevated blood-pressure reading, without diagnosis of hypertension; R29.702 NIHSS score 2; Z79.51 Long term (current) use of inhaled steroids; Z79.899 Other long term (current) drug therapy; Z86.59 Personal history of other mental and behavioral disorders
CPT/HCPCS: 36415; 70450; 70496; 70498; 70551; 80048; 80053; 80061; 82962; 83036; 83735; 84443; 84484; 85025; 85610; 85730; 92523; 93005; 93306; 93880; 94668; 97161; 97166; 97802; 99284; Q9967; A4216

== ENCOUNTER 2025-03-03 10:44 | Outpatient (RCR) | payer MEDICAID, SELFPAY ==
--- NOTE | 2025-03-03 14:04 | HP.SP.EV_ITS ---
Visit History Visit Info Date of Eval: 03/03/25 Today is Visit #: 1 Consumer Advocate: YOHANA History Attending Doctor: Referring Doctor: Reason for Referral: [facility] Medical Diagnosis: Cerebral infarction, expressive aphasia Date of Onset of Diagnosis: 02/27/25 Previous speech therapy: No Smoking Status: Current every day smoker Diagnosis Diagnosis: Expressive aphasia Pain Is pain an issue with your current prescribed condition?: No Personal Preferred language: Faroese Patient Allergies Allergies Allergies: Allergies niacin Allergy (Verified 02/27/25 19:15) Nausea prednisone Adverse Reaction (Severe, Verified 02/27/25 19:15) mood swings varenicline (From Chantix) Adverse Reaction (Severe, Verified 02/27/25 19:15) mood swings CLQT CLQT CLQT Administered: Yes CLQT: Cognitive Linguistic Quick Test (CLQT) is a criterion - referenced assessment designed for adults between the ages of 18 and 89 with known or suspected neurological dysfuntions. The CLQT is to assess strength and weaknesses in five cognitive domains. Severity ratings are within normal limits, mild, moderate, severe deficits. The subtests are as follows: Date: 03/03/25 Attention Attention: WNL Memory Memory: WNL Executive Functions Executive Functions: WNL Language Language: WNL Visuospatial Skills Visuospatial Skills: WNL Composite Severity Rating Composite Severity Rating: WNL Clock Drawing Severity Rating Clock Drawing Severity Rating: Mild CLQT Comments -: -: All areas WNL with the exception of clock drawing due to pt placing numbers on the outside of the upper mattaponi and making the hands the same length Reference: Neuro-QoL instrument Radiation Oncology Patient Plan Plan Plan: At this time, Elsy's skills in the areas of language, attention, memory, executive functions, and visuospatial awareness lie within normal limits for her age. Skilled speech therapy is not recommended, but she was provided with resources to use at home for cognition. Recommendations Treatment Warranted: No Education Patient has Indicated that the Following Identified Educational Needs: None The Patient has indicated that they have no educational or learning abilities that may effect their care.: Yes Patient Instruction Patient Education: Diagnosis and Home Exercise Program Person Taught: Patient and Family Teaching Method: Discussion Response to teaching: Verbalize Understanding
== END 2025-03-03 16:05 | disposition home or self-care (01) ==
LOC: SP 10:44
PROVIDERS: PCP Internal Medicine; Referring Provider Student in an Organized Health Care Education/Training Program; Visit Provider Student in an Organized Health Care Education/Training Program
DX: I69.310 Attention and concentration deficit following cerebral infarction (principal); I69.311 Memory deficit following cerebral infarction; I69.328 Other speech and language deficits following cerebral infarction; R47.01 Aphasia
CPT/HCPCS: 92523

== ENCOUNTER → 2025-03-13 | Outpatient (CLI) | payer MEDICAID, SELFPAY ==
[2025-03-13 18:32] LABS: Ammonia 13.9 umol/L (11-51)
[2025-03-13 19:14] LABS: CRP 3.01 mg/L (0.0-3.0)
[2025-03-17 13:08] LABS: ANTINUCLEAR ANTIBODIES DIRECT Negative (Negative)
== END | disposition home or self-care (01) ==
LOC: MTLAB 15:43
PROVIDERS: PCP Internal Medicine
DX: Z09 Encounter for follow-up examination after completed treatment for conditions other than malignant neoplasm (principal); Z86.73 Personal history of transient ischemic attack (TIA), and cerebral infarction without residual deficits
CPT/HCPCS: 86225; 36415; 82140; 85652; 86038; 86140

== ENCOUNTER → 2025-04-09 | Outpatient (CLI) | payer MEDICAID, SELFPAY ==
--- NOTE | 2025-04-09 08:32 | US_ITS ---
PROCEDURE: ABDOMEN LIMITED 04/09/2025 REASON FOR EXAM: ASSESS LIVER D/T HX OF ETOH ABUSE TECHNIQUE: Procedure Code: USABDL Modality: US Procedure: ABDOMEN LIMITED COMPARISON: None. FINDINGS: Liver: Coarsened hepatic echotexture. There is normal hepatopetal flow in the portal venous system. The liver measures 15.6 cm in vertical dimension in the midclavicular line. Gallbladder: Multiple echogenic gallstones are identified. Common bile duct: 5 mm. Pancreas: Visualized portions are sonographically unremarkable. Other: The right kidney measures 10.6 x 5.4 x 4.7 cm. The renal cortex measures 1.4 cm in thickness. No right upper quadrant ascites. US/Abdomen Limited IMPRESSION: Cholelithiasis. Reading Location: [id number]
== END | disposition home or self-care (01) ==
LOC: US 08:30
PROVIDERS: PCP Internal Medicine
DX: F10.21 Alcohol dependence, in remission (principal); Z91.89 Other specified personal risk factors, not elsewhere classified
CPT/HCPCS: 76705

== ENCOUNTER → 2025-06-10 | Outpatient (CLI) | payer MEDICAID, SELFPAY ==
[2025-06-10 15:22] LABS: AST(SGOT) 19 U/L (<=31); Alanine Aminotransfer ALT/SGPT 17 U/L (<=34); Albumin, Serum 4.7 g/dL (3.5-5.0); Alkaline Phosphatase 73 U/L (35-104); Bilirubin, Direct 0.18 mg/dL (0.00-0.30); Cholesterol 233 mg/dL (<=200); Globulin 2.4 g/dL (2.2-4.2); Low Density Lipoprotein Calc. 162 mg/dL; Triglycerides 153 mg/dL; Very Low Density Lipoprotein 31 mg/dL (5-40); cholesterol:hdl ratio screen 5.42
== END | disposition home or self-care (01) ==
LOC: MTLAB 11:13
PROVIDERS: PCP Internal Medicine; Referring Provider Physician Assistant; Visit Provider Physician Assistant
DX: E78.5 Hyperlipidemia, unspecified (principal)
CPT/HCPCS: 36415; 80061; 80076